=== PATIENT | female | born 1970 | race Caucasian/White ===

== ENCOUNTER 2020-03-17 16:54 | Emergency (ER) | payer OTHER, SELFPAY ==
[2020-03-17 17:31] VITALS: BP 135/67; PULSE 98; RESP 18; TEMP 37.2; O2SAT 98; BMI 44.6
--- NOTE | 2020-03-17 18:09 | ED.SKABFB ---
HPI - Skin/Abscess/Foreign Bdy General Chief complaint: Skin/Abscess/Foreign Body <JONATHAN Stanford - Last Filed: 03/17/20 20:05> Stated complaint: Abcess <JONATHAN Stanford - Last Filed: 03/17/20 20:05> Time Seen by Provider: 03/17/20 17:45 <JONATHAN Stanford - Last Filed: 03/17/20 20:05> Source: patient <JONATHAN Stanford - Last Filed: 03/17/20 20:05> Mode of arrival: ambulatory <JONATHAN Stanford Last Filed: 03/17/20 20:05> Limitations: no limitations <JONATHAN Stanford - Last Filed: 03/17/20 20:05> History of Present Illness HPI narrative: 49 y/o female here with multiple abscesses. Hx hidradinitis suppurativa. Recently was on antibiotics but stopped about 1 week ago and this is when she noticed an abscess formed on her lwoer abdomen and her left axilla. She has had abscesses in these locations several times before. No fever or chills. There is redness of the abdominal wall per patient and foul smelling drainage. <JONATHAN Stanford - Last Filed: 03/17/20 20:05> MD complaint: abscess/boil <JONATHAN Stanford - Last Filed: 03/17/20 20:05> Onset (ago): day(s) <JONATHAN Stanford - Last Filed: 03/17/20 20:05> Tetanus up to date: yes <JONATHAN Stanford - Last Filed: 03/17/20 20:05> Location: chest (lower abdominal wall ) and RLE <JONATHAN Stanford - Last Filed: 03/17/20 20:05> Severity: moderate <JONATHAN Stanford Last Filed: 03/17/20 20:05> Severity scale (1-10): 5 <JONATHAN Stanford Last Filed: 03/17/20 20:05> Quality: aching <JONATHAN Stanford Last Filed: 03/17/20 20:05> Pain Consistency: constant <JONATHAN Stanford Last Filed: 03/17/20 20:05> Relieving factors: none <JONATHAN Stanford Last Filed: 03/17/20 20:05> Exacerbating factors: palpation <JONATHAN Stanford Last Filed: 03/17/20 20:05> Context: none <JONATHAN Stanford Last Filed: 03/17/20 20:05> Associated symptoms: denies other symptoms <JONATHAN Stanford Last Filed: 03/17/20 20:05> Treatments prior to arrival: attempted to drain pus at home <JONATHAN Stanford Last Filed: 03/17/20 20:05> Related Data Home medications: Previous Rx's Medication Instructions Recorded cephalexin [Keflex] 500 mg PO QID #28 cap 03/17/20 doxycycline monohydrate 100 mg PO BID #14 cap 03/17/20 <JONATHAN Stanford Last Filed: 03/17/20 20:05> Allergies/Adverse reactions: Allergies Allergy/AdvReac Type Severity Reaction Status Date / Time adhesive tape [ADHESIVE TAPE] Allergy Intermediate BLISTERS Verified 03/17/20 17:31 tramadol [TRAMADOL] Allergy Intermediate NAUSEA & Verified 03/17/20 17:31 VOMITING, vomiting acetaminophen [Percocet] Allergy Unknown Unknown Verified 03/17/20 17:31 oxycodone [OXYCODONE] AdvReac Unknown ITCHING Verified 03/17/20 17:31 Adhesive tape Allergy Unknown Unknown Uncoded 03/17/20 17:31 adhesive tape Allergy Unknown Unknown Uncoded 03/17/20 17:31 <JONATHAN Stanford Last Filed: 03/17/20 20:05> Review of Systems Review of Systems: Constitutional: No Fever, No Chills ENT/Mouth: No sore throat, No Rhinorrhea, No Swallowing Difficulty Eyes: No Eye Pain, No Swelling, No Redness Cardiovascular: No Chest Pain or SOB, No Orthopnea Respiratory: No Cough, No Sputum, No Wheezing, positive dyspnea Gastrointestinal: No Nausea, No Vomiting, No Diarrhea, No abdominal Pain, No Hematochezia, No Melena Genitourinary: No Dysuria, No Urinary Frequency, No Hematuria Musculoskeletal: No joint pain, No Myalgias Skin: several skin lesions, redness, warmth, pain Neuro: No Weakness, No Numbness, No Dizziness, No Headache Psych: No Anxiety/Panic, No Depression Heme/Lymph: No Bruising, No Lymphadenopathy Endocrine: No Polyuria, No Polydipsia All other 10 point ROS are negative. <JONATHAN Stanford - Last Filed: 03/17/20 20:05> [facility] Past Medical History Medical History: Medical History (Updated 03/18/20 @ 00:00 by Isael Ivy) Asthma delivery delivered Cholecystectomy planned Depression Diabetes Hernia of abdominal wall High cholesterol HTN (hypertension) Tachycardia <JONATHAN Stanford - Last Filed: 03/17/20 20:05> Surgical History: Surgical History (Updated 03/17/20 @ 17:36 by Rachel Duran) H/O foot surgery <JONATHAN Stanford - Last Filed: 03/17/20 20:05> Social History Social History: Social History Alcohol intake: never Smoking Status: Former smoker Smoked in Last 30 Days: No Use of substances other than those prescribed or required for medical reasons: No Advance Directives: No Advance Directives Information Provided: Yes <JONATHAN Stanford - Last Filed: 03/17/20 20:05> Physical Exam Vital Signs and I&O and Narrative: Vital Signs and I&O: Vital Signs Temp 98.7 F 03/17/20 18:38 Pulse 95 03/17/20 18:38 Resp 16 03/17/20 18:38 BP 153/73 H 03/17/20 18:38 Pulse Ox 99 03/17/20 18:38 Intake & Output 03/17/20 03/17/20 03/18/20 06:59 18:59 06:59 Weight 118.026 kg Body Mass Index 44.6 Appearance: Alert. Oriented X3. No acute distress. Eyes: Pupils equal, round and reactive to light. ENT: Pharynx normal. Neck: Normal inspection. Neck supple. CVS: Normal heart rate and rhythm. Pulses normal. Respiratory: No respiratory distress. Breath sounds normal. Abdomen: Soft. lower abdominal wall with 3cm palpable mass with fluctuance consistent with abscess, mild surrouding cellultiis and tenderness. Skin: Skin warm and dry. Normal skin color. Normal skin turgor. No rashes. Extremities: right axillary area with tender indurated area, draining purulent, foul-smelling fluid, mild cellulitic changes, several scars from prior abscesses Neuro: Oriented X 3. No motor deficit. No sensory deficit. <JONATHAN Stanford - Last Filed: 03/17/20 20:05> Vital Signs and I&O: Vital Signs Temp 98.7 F 03/17/20 18:38 Pulse 95 03/17/20 18:38 Resp 16 03/17/20 18:38 BP 153/73 H 03/17/20 18:38 Pulse Ox 99 03/17/20 18:38 Intake & Output 03/17/20 03/17/20 03/18/20 06:59 18:59 06:59 Weight 118.026 kg Body Mass Index 44.6 <Winler Pina DO - Last Filed: 03/18/20 01:18> Course Course Hospital Course: not septic, 2 mild abscesses which she has a history of. will I&D and start abx. she is due to follow up with her PCP and surgeon <JONATHAN Stanford - Last Filed: 03/17/20 20:05> Procedures Abscess I/D Site: abdomen and upper extremity <JONATHAN Stanford - Last Filed: 03/17/20 20:05> Side (if applicable): right <JONATHAN Stanford - Last Filed: 03/17/20 20:05> Local Anesthetic: lidocaine 2% <JONATHAN Stanford - Last Filed: 03/17/20 20:05> Amount of anesthesia used (mL): 5 <JONATHAN Stanford - Last Filed: 03/17/20 20:05> Technique: incised with blade <JONATHAN Stanford - Last Filed: 03/17/20 20:05> Sent for culture/gram staining?: No <JONATHAN Stanford - Last Filed: 03/17/20 20:05> Irrigation: Yes <JONATHAN Stanford - Last Filed: 03/17/20 20:05> Packing used?: none <JONATHAN Stanford - Last Filed: 03/17/20 20:05> Complications: pain <JONATHAN Stanford - Last Filed: 03/17/20 20:05> MDM - Skin/Abscess/Foreign Bdy Differential Diagnosis Differential diagnosis: Likely abscess of skin or subcutaneous tissue and cellulitis <JONATHAN Stanford Last Filed: 03/17/20 20:05> Medical Records Attestation: I reviewed the patient's medical records. <JONATHAN Stanford Last Filed: 03/17/20 20:05> Discharge Plan Discharge Clinical Impression: Cellulitis, Abscess of skin or subcutaneous tissue, Axillary hidradenitis suppurativa <JONATHAN Stanford - Last Filed: 03/17/20 20:05> Patient Disposition: Home, Self-Care <JONATHAN Stanford Last Filed: 03/17/20 20:05> Instructions: Cellulitis (ED), Hidradenitis Suppurativa (ED) <JONATHAN Stanford Last Filed: 03/17/20 20:05> Additional Instructions: Use warm compresses to the area to help facilitate additional drainage. Monitor for worsening signs of infection including redness, warmth, pain, and swelling. Follow up with your PCP and your Surgeon Return to the ER or call your doctor right way if you develop fever or signs of worsening infection <JONATHAN Stanford Last Filed: 03/17/20 20:05> Prescriptions: New doxycycline monohydrate 100 mg capsule 100 mg PO BID Qty: 14 RF: 0 cephalexin [Keflex] 500 mg capsule 500 mg PO QID Qty: 28 RF: 0 <JONATHAN Stanford Last Filed: 03/17/20 20:05> Interventions: ED Discharge Assessment Last Done: 03/17/20 19:16 <JONATHAN Stanford Last Filed: 03/17/20 20:05> Discharge Date/Time: 03/17/20 19:17 <JONATHAN Stanford - Last Filed: 03/17/20 20:05>
[2020-03-17] MEDS: cephALEXin 500 MG CAPSULE PO (18:34)
[2020-03-17] MEDS: Lidocaine HCl 2 % MPF 5 ML VIAL INFILTRATI (18:34)
[2020-03-17 18:38] VITALS: BP 153/73; PULSE 95; RESP 16; TEMP 37.1; O2SAT 99
== END 2020-03-17 19:17 | disposition home or self-care (01) ==
DX: L02.412 Cutaneous abscess of left axilla (principal); L02.211 Cutaneous abscess of abdominal wall; L73.2 Hidradenitis suppurativa; E11.9 Type 2 diabetes mellitus without complications; F32.9 Major depressive disorder, single episode, unspecified; E78.00 Pure hypercholesterolemia, unspecified; L03.311 Cellulitis of abdominal wall; J45.909 Unspecified asthma, uncomplicated; Z87.891 Personal history of nicotine dependence; Z79.899 Other long term (current) drug therapy
CPT/HCPCS: 10061; 99284

== ENCOUNTER 2020-03-23 03:49 | Emergency (ER) | payer OTHER, SELFPAY ==
[2020-03-23 03:57] VITALS: BP 116/78; PULSE 93; RESP 20; TEMP 36.7; O2SAT 98; BMI 40.3
--- NOTE | 2020-03-23 04:48 | ED.URI ---
HPI - URI/Sore Throat General Chief Complaint: Upper Respiratory Symptoms Stated Complaint: asthma Time Seen by Provider: 03/23/20 04:48 History of Present Illness HPI Narrative: This is a 49-year-old female who reports increased difficulty with breathing secondary to her nasal congestion and allergies. She is concerned she may be developing a sinus infection, although denies any fevers, chills, nausea, vomiting, GI symptoms, or symptoms. She states she is currently on doxycycline and cephalexin for incision and drainages that were completed. Related Data Previous Rx's Medication Instructions Recorded cephalexin [Keflex] 500 mg PO QID #28 cap 03/17/20 doxycycline monohydrate 100 mg PO BID #14 cap 03/17/20 albuterol sulfate [Ventolin HFA] 2 puff INHALATION Q4-6H PRN #1 ea 03/23/20 Allergies Allergy/AdvReac Type Severity Reaction Status Date / Time adhesive tape [ADHESIVE TAPE] Allergy Intermediate BLISTERS Verified 03/17/20 17:31 tramadol [TRAMADOL] Allergy Intermediate NAUSEA & Verified 03/17/20 17:31 VOMITING, vomiting acetaminophen [Percocet] Allergy Unknown Unknown Verified 03/17/20 17:31 oxycodone [OXYCODONE] AdvReac Unknown ITCHING Verified 03/17/20 17:31 Adhesive tape Allergy Unknown Unknown Uncoded 03/17/20 17:31 adhesive tape Allergy Unknown Unknown Uncoded 03/17/20 17:31 Review of Systems Review of Systems: Pertinent positives and negatives as stated in the HPI. GEN: no fevers, chills, fatigue HEENT: no nasal congestion, sore throat, ear pain NEURO: no headache, dizziness, focal weakness PULM: +cough, Mild shortness of breath CV: no chest pain, palpitations, LE edema ABD: no abdominal pain, nausea, vomiting, diarrhea : no dysuria, urgency, frequency SKIN: no rash ROS otherwise negative x 10 PMFSH Past Medical History Source: nursing notes reviewed Medical History Asthma delivery delivered Cholecystectomy planned Depression Diabetes Hernia of abdominal wall High cholesterol HTN (hypertension) Tachycardia Surgical History H/O foot surgery Social History Social History Alcohol intake: never Smoking Status: Former smoker Advance Directives: No Advance Directives Information Provided: No Physical Exam Vital Signs and I&O and Narrative: Vital Signs and I&O: Vital Signs Temp 98.0 F 03/23/20 03:57 Pulse 93 03/23/20 03:57 Resp 20 03/23/20 03:57 BP 116/78 03/23/20 03:57 Pulse Ox 98 03/23/20 03:57 Intake & Output 03/22/20 03/22/20 03/23/20 06:59 18:59 06:59 Weight 106.594 kg Body Mass Index 40.3 VITAL SIGNS: Reviewed. GENERAL: Well developed, well nourished, in no acute distress. HEAD: Normocephalic/atraumatic, EYES: PERRLA, EOMI intact without pain, no nystagmus/pallor/icterus noted EARS: Ext canals without abnormality, TMs non-bulging and non-erythematous NOSE: Nares patent bilateral OROPHARYNX: no oral lesions noted, posterior pharynx clear and non-erythematous without noted tonsillar enlargement/erythema/exudates NECK: Supple, no adenopathy LUNGS: Normal breath sounds. No adventitious sounds or accessory muscle use. SpO2< 98%> CARDIOVASCULAR: Regular rate and rhythm without noted murmurs, no JVD or lower extremity edema. ABDOMEN: Soft, non-tender, non-distended with bowel sounds. No rigidity. No guarding. No palpable masses or hernias noted MUSCULOSKELETAL: No tenderness, deformities, or effusions noted on gross inspection. EXTREMITIES: No cyanosis, clubbing or edema. SKIN: Inspection of the skin reveals no rashes, ulcerations, jaundice, pallor, or petechiae. NEUROLOGIC: Alert and oriented x 4. Strength and sensation to light touch were grossly intact x 4. Course Course Course Narrative: this is a 49-year-old female with history and clinical presentation consistent with likely nasal congestion secondary to allergies with concomitant postnasal drip with upper airway irritation. There is no evidence of fever, and clinical exam of the lungs is benign with good oxygenation. This was further demonstrated by a chest x-ray which was negative for any acute findings and a DuoNeb was provided to the patient and she endorses improvement on re-evaluation. All results and findings were discussed with the patient at bedside and she was recommended to take Flonase daily for the nasal congestion. Discharge Plan Discharge Clinical Impression: Congestion of nasal sinus Patient Disposition: Home, Self-Care Instructions: Allergic Rhinitis (ED) Additional Instructions: 1. Resume all home medications as prescribed. 2. Flonase, [id number] available in any drug store, use as directed on the outside packaging for additional symptom relief of nasal congestion. The patient and/or family acknowledge understanding of results (as applicable), diagnosis, treatment plan, need for follow up, and symptoms that should prompt a return to the emergency room. Prescriptions: New albuterol sulfate [Ventolin HFA] 90 mcg/actuation HFA aerosol inhaler 2 puff inhalation Q4-6H PRN (Reason: shortness of breath or wheezing) Qty: 1 RF: 0 No Action doxycycline monohydrate 100 mg capsule 100 mg PO BID Qty: 14 RF: 0 cephalexin [Keflex] 500 mg capsule 500 mg PO QID Qty: 28 RF: 0 Referrals: Leti Ballesteros MD [Primary Care Provider] - 2 days ( Nasal congestion with upper respiratory irritation)
--- NOTE | 2020-03-23 04:52 | XR_ITS ---
EXAMINATION: XR CHEST CLINICAL INFORMATION: Shortness of breath COMPARISON: 09/06/2019 TECHNIQUE: 2 views of the chest were obtained. FINDINGS: The lungs are well expanded. There is no focal consolidation, edema, or effusion. No pneumothorax. The cardiomediastinal silhouette is within normal limits. No acute osseous abnormality. IMPRESSION: No acute pulmonary finding.
[2020-03-23] MEDS: Albuterol/Iprat 2.5/0.5MG 3 ML AMPUL.NEB INHALE (05:33)
[2020-03-23 06:27] VITALS: BP 189/76; PULSE 89; RESP 20; TEMP 37.2; O2SAT 99
== END 2020-03-23 06:49 | disposition home or self-care (01) ==
PROVIDERS: Emergency Provider Student in an Organized Health Care Education/Training Program; PCP Internal Medicine
DX: R09.81 Nasal congestion (principal); Z20.828 Contact with and (suspected) exposure to other viral communicable diseases; Z87.891 Personal history of nicotine dependence; Z79.899 Other long term (current) drug therapy
CPT/HCPCS: 71046; 99284

== ENCOUNTER 2020-06-22 14:08 | Outpatient (REF) | payer OTHER, SELFPAY | END 2020-06-22 14:09 | disposition home or self-care (01) | LOC: HO.LAB 14:08 | PROVIDERS: Visit Provider Nurse Practitioner Family | DX: R09.81 Nasal congestion (principal); Z20.822 Contact with and (suspected) exposure to COVID-19 | CPT/HCPCS: 36415; U0003 ==

== ENCOUNTER 2020-09-11 | Outpatient (REF) | payer OTHER, SELFPAY | END 2020-09-11 00:01 | disposition home or self-care (01) | LOC: HO.LNP | PROVIDERS: Visit Provider Nurse Practitioner Family | DX: L73.2 Hidradenitis suppurativa (principal) | CPT/HCPCS: 87071; 87077; 87186; 87205 ==

== ENCOUNTER 2020-09-11 17:06 | Outpatient (REF) | payer OTHER, SELFPAY | END 2020-09-11 17:07 | disposition home or self-care (01) | LOC: HO.LAB 17:06 | PROVIDERS: Visit Provider Nurse Practitioner Family | DX: Z13.89 Encounter for screening for other disorder (principal) ==

== ENCOUNTER 2020-10-01 10:06 | Emergency (ER) | payer OTHER, SELFPAY ==
[2020-10-01] VITALS (7 sets, daily range): BP systolic 119–128; BP diastolic 60–81; PULSE 92–100; RESP 16–18; TEMP 36.8; O2SAT 94–99; BMI 39.4; BMI 44.6
--- NOTE | ~2020-10-01 | CT_ITS ---
EXAMINATION: CT ANGIOGRAM OF THE CHEST WITH AND WITHOUT CONTRAST (CT PULMONARY ANGIOGRAM FOR PE) CLINICAL INFORMATION: Reason for Exam SOB COMPARISON: CT chest 08/25/2018 TECHNIQUE: Prior to contrast administration, noncontrast localization images were obtained. Subsequently, multidetector volumetric imaging was performed from the thoracic inlet to below the diaphragms following the administration of 71 mL Omnipaque 350 intravenous contrast. During the procedure, the IV blew and it was thought that only 10 to 15 mL of contrast went intravenously and the remainder approximately 55 to 60 mL extravasated into the patient's right arm. Ice was applied and incident report was filed. The patient's provider was immediately advised of these events. No contrast reaction reported Sagittal, coronal, and MIP oblique sagittal reformatted images were obtained on the CT workstation, uploaded to PACS, and reviewed. This CT examination was performed using dose optimization techniques as appropriate, variously including the following: *Automated exposure control *Adjustment of mA and/or kV according to patient size (this includes techniques or standardized protocols for targeted exams where dose is matched to indication/reason for exam; i.e. extremities or head) *Use of iterative reconstruction technique Total exam dose-length product 407 mGy-cm FINDINGS: QUALITY OF STUDY/CONTRAST BOLUS: Poor PULMONARY ARTERIES: No large central pulmonary emboli. This study is inadequate for diagnosis of any other smaller emboli. THORACIC AORTA: No aneurysm or dissection. LUNG: No focal consolidation, worrisome nodules or masses. Some tiny scattered micronodules are seen (see carreon images) the largest measuring 3 mm (for example see RUL,7:177). Some tree-in-bud inflammatory changes are present in the left upper lobe laterally and in the right lower PLEURA: No pleural effusion or pneumothorax. MEDIASTINUM: Normal heart size. No pericardial effusion. No hilar or mediastinal lymphadenopathy. No evidence of septal bowing or right heart strain. CHEST WALL/AXILLA: No axillary or internal mammary lymphadenopathy. OSSEOUS STRUCTURES: No acute or suspicious osseous abnormality. UPPER ABDOMEN: Small hiatal hernia is present No reflux of contrast into the hepatic veins to suggest elevated right heart pressures. CT/CT angio chest PE protocol IMPRESSION: 1. Study is nondiagnostic for pulmonary emboli 2. A few scattered micronodules and some tree-in-bud inflammatory changes are present. 3. If exclusion of PE is necessary, a stable IV or PICC line must be placed and this study should be repeated. 4. Extravasation injury right arm as described above VTE: indeterminate This critical result was discussed with JONATHAN Stubbs at 9:30 PM on the evening of the exam and it was ascertained that the content and urgency of the report was understood at the time of direct communication.
--- NOTE | ~2020-10-01 | XR_ITS ---
EXAMINATION: XR CHEST CLINICAL INFORMATION: Cough. COMPARISON: Chest 03/23/2020 TECHNIQUE: Frontal view of the chest was obtained. FINDINGS: No significant abnormality is noted involving the heart, lungs, mediastinum, bony thorax or soft tissues. XR/XR chest 1V IMPRESSION: Unremarkable chest exam.
--- NOTE | 2020-10-01 10:46 | ECG_ITS ---
Test Reason : DYSPNEA Blood Pressure : / mmHG Vent. Rate : 092 BPM Atrial Rate : 092 BPM P-R Int : 166 ms QRS Dur : 092 ms QT Int : 360 ms P-R-T Axes : 036 014 041 degrees QTc Int : 445 ms Normal sinus rhythm Cannot rule out Anterior infarct (cited on or before 01-OCT-2020) Abnormal ECG When compared with ECG of 11-JUL-2019 16:02, No significant change was found Referred By: Kemal Acosta Electronically Signed By:Jonathan Torres
--- NOTE | 2020-10-01 10:51 | ED.GENADULT ---
HPI - General Adult General Chief complaint: Dyspnea Stated complaint: SOB Time Seen by Provider: 10/01/20 10:37 History of Present Illness HPI narrative: Patient presents to the ED for dry cough and shortness of breath. Patient states also feeling warm. Patient states she staying at a motel where most of the residence smoke heavy amounts of cigarettes and marijuana and that caused her to cough and exacerbate her asthma. Patient denies any fever chills. Patient denies any calf pain or increased swelling of lower extremities. Patient states once again cough is dry. Patient denies any chest pain on inspiration. Patient is unknown of any exposure to COVID, but states he doubted because she usually states in her own room. Related Data Home Medications Medication Instructions Recorded Confirmed aripiprazole 10 mg tablet 10 mg PO QAM 06/22/20 aspirin 325 mg tablet 325 mg PO DAILY 06/22/20 blood sugar diagnostic #10 ea 06/22/20 bupropion HCl 150 mg 24 hr tablet, 150 mg PO QAM 06/22/20 extended release cetirizine 10 mg tablet 10 mg PO DAILY 06/22/20 diltiazem HCl 240 mg 240 mg PO DAILY 06/22/20 capsule,extended release 24 hr duloxetine 30 mg capsule,delayed 30 mg PO BID 06/22/20 release fluticasone propionate 115 2 puff INHALATION BID 06/22/20 mcg-salmeterol 21 mcg/actuation HFA inhaler fluticasone propionate 230 2 puff INHALATION BID 06/22/20 mcg-salmeterol 21 mcg/actuation HFA inhaler fluticasone propionate 50 0 mcg INTRANASAL 06/22/20 mcg/actuation nasal spray,suspension gabapentin 300 mg capsule 300 mg PO BID 06/22/20 glipizide 5 mg tablet 5 mg PO BID 06/22/20 ibuprofen 600 mg tablet 600 mg PO Q8H PRN 06/22/20 insulin aspart U-100 100 unit/mL SUBCUT 06/22/20 subcutaneous solution insulin glargine 100 unit/mL (3 62 unit SUBCUT BID 06/22/20 mL) subcutaneous pen liraglutide 0.6 mg/0.1 mL (18 mg/3 1.8 mg SUBCUT DAILY 06/22/20 mL) subcutaneous pen injector loratadine 10 mg tablet 10 mg PO DAILY 06/22/20 metformin 1,000 mg tablet 1,000 mg PO BID 06/22/20 omeprazole 20 mg capsule,delayed 20 mg PO DAILY 06/22/20 release pravastatin 20 mg tablet 20 mg PO DAILY 06/22/20 Previous Rx's Medication Instructions Recorded cephalexin [Keflex] 500 mg PO QID #28 cap 03/17/20 doxycycline monohydrate 100 mg PO BID #14 cap 03/17/20 albuterol sulfate [Ventolin HFA] 2 puff INHALATION Q4-6H PRN #1 ea 03/23/20 albuterol sulfate 90 mcg/actuation 1 inh INHALATION Q6H PRN #8.5 g 06/22/20 aerosol inhaler doxycycline hyclate 100 mg tablet 100 mg PO BID 10 Days #20 tab 09/11/20 azithromycin See Rx Instructions .ROUTE 10/01/20 .COMPLEX #6 tab benzonatate [Tessalon Perles] 100 mg PO TID PRN #15 cap 10/01/20 Allergies Allergy/AdvReac Type Severity Reaction Status Date / Time adhesive tape [ADHESIVE TAPE] Allergy Intermediate BLISTERS Verified 03/17/20 17:31 tramadol [TRAMADOL] Allergy Intermediate NAUSEA & Verified 03/17/20 17:31 VOMITING, vomiting acetaminophen [Percocet] Allergy Unknown Unknown Verified 03/17/20 17:31 oxycodone [OXYCODONE] AdvReac Unknown ITCHING Verified 03/17/20 17:31 Adhesive tape Allergy Unknown Unknown Uncoded 03/17/20 17:31 adhesive tape Allergy Unknown Unknown Uncoded 03/17/20 17:31 Review of Systems Review of Systems: Yes all other systems are reviewed and are negative Constitutional: Constitutional: Reports as per HPI and Reports no additional constitutional complaints Eyes: Eyes: Reports as per HPI and Reports no additional eye complaints ENT: Reports system reviewed and no additional complaints, except as documented and Reports as per HPI Cardiovascular: Cardiovascular: Reports as per HPI, Reports no additional cardiovascular complaints and Reports dyspnea Respiratory: Respiratory: Reports as per HPI, Reports no additional respiratory complaints, Reports cough and Reports dyspnea Gastrointestinal: Gastrointestinal: Reports as per HPI and Reports no additional gastrointestinal complaints Genitourinary: Genitourinary: Reports no additional female genitourinary complaints and Reports as per HPI Musculoskeletal: Musculoskeletal: Reports no additional musculoskeletal complaints and Reports as per HPI Neurologic: Reports system reviewed and no additional complaints, except as documented and Reports as per HPI Psychiatric: Psychiatric: Reports no additional psychiatric complaints and Reports as per HPI [facility] Past Medical History Medical History Asthma delivery delivered Cholecystectomy planned Depression Diabetes Hernia of abdominal wall High cholesterol HTN (hypertension) Tachycardia Surgical History H/O foot surgery Social History Social History Alcohol intake: never Smoking Status: Never smoker Use of substances other than those prescribed or required for medical reasons: No Advance Directives: No Advance Directives Information Provided: No Physical Exam Vital Signs: Vital Signs: Last Vital Signs Temp 98.3 F 10/01/20 10:32 Pulse 92 10/01/20 16:12 Resp 16 10/01/20 16:12 BP 127/69 10/01/20 16:12 Pulse Ox 95 10/01/20 16:12 Body Mass Index 44.6 Const: General: cooperative, healthy appearing, comfortable, no acute distress, well developed, alert, awake and Physically active; No lethargic Orientation/consciousness: patient oriented x3 and No lethargic HENMT: Head: Yes normal to inspection, Yes No palpable skull fracture present, Yes normocephalic, Yes atraumatic, No abrasion, No Shelley's sign, No contusion, No cranial bruits, No hematoma, No laceration, No occipital foramen tenderness, No palpable skull fracture, No raccoon eyes, No scalp lesion, No scalp tenderness, No Temporal artery tenderness present and No periorbital ecchymosis Eyes: General: appearance normal, both eyes and all related structures Neck: Neck: Yes normal visual inspection, Yes full ROM, Yes no lymphadenopathy, Yes no meningeal signs, Yes trachea midline, Yes supple and No tender Chest: Chest palpation & inspection: normal inspection of the chest and normal palpation of entire chest wall Resp: Effort & Inspection: normal respiratory effort and able to speak in complete sentences Auscultation: clear to auscultation bilaterally Cardio: Jugular venous distension: no JVD Heart sounds: S1 normal heart sound present and S2 normal heart sound present GI: Inspection: Yes normal to inspection and No abdominal wall ecchymosis Palpation (GI): Soft to palpation, not firm, nontender, no guarding and not rigid : General: No CVA tenderness and Yes no CVA tenderness Back/Spine/Pelvis: Back: no CVA tenderness, No CVA tenderness and No back tenderness Skin: General skin exam: no rashes or lesions noted and elasticity normal Neuro: General: patient oriented x3, no meningeal signs and CN's II-XI intact bilaterally Cranial nerves: Yes CN's II-XII intact bilaterally Extrem: Other: Lower extremities negative for any swelling, pitting edema, or calf tenderness General: Yes normal to inspection and Yes full ROM Psych: Appearance: grossly normal, well kempt and not disheveled Course Course Course Narrative: Patient's sound like she has the URI, do TH patient will have a medical workup. Patient had EKG, troponin, COVID swab, and basic labs. Reevaluation(s) Reevaluation #1: Patient's EKG does not show any new changes. First troponin negative. Patient's COVID swab is negative BNP negative ER negative for pneumonia. D-dimer will be sent to make sure the risk of PE. Reevaluation #2: D-dimer slightly elevated. Will order repeat troponin and make patient walk around. Also will do O2 saturation ambulation trial. Patient does admits to feeling better. The saturation 98% on ambulation. Patient is sent for chest CT a due to elevated D-dimer. Reevaluation #3: Waiting for chest CT results. Most likely patient has bronchitis and chest CT is normal patient could be discharged. Case signed out to Gustavo be. Medical Decision Making [facility] Narrative Medical decision making narrative: Bronchitis asthma exacerbation Lab Data Result diagrams: 10/01/20 11:19 10/01/20 12:14 Labs: Lab Results 10/01/20 10/01/20 10/01/20 Range/Units 11:19 11:19 12:14 WBC 7.5 (4.8-10.8) X10*3/uL RBC 4.71 (4.20-5.50) X10*6/uL Hgb 14.1 (12.0-16.0) g/dl Hct 41.4 (37-47) % MCV 87.9 (80-98) fL MCH 29.9 (27.0-33.0) pg MCHC 34.1 (31.0-35.0) g/dl RDW 12.8 (11.0-16.0) % Plt Count 169 (160-400) X10*3/uL MPV 9.2 L (9.4-12.3) fL Immature Gran % (Auto) 0.5 H (0.0-0.4) % Neut % (Auto) 70.9 (45-73) % Lymph % (Auto) 21.7 (20-40) % [place] % (Auto) 5.3 (2-11) % Eos % (Auto) 1.5 (0-4) % Baso % (Auto) 0.1 (0-2) % Lymph # (Auto) 1.6 (1.2-4.9) X10*3/uL [place] # (Auto) 0.4 (0.1-1.2) X10*3/uL Eos # (Auto) 0.1 (0.0-0.4) X10*3/uL Baso # (Auto) 0.0 (0.0-0.2) X10*3/uL Abs Immat Gran (auto) 0.04 H (0.00-0.03) X10*3/uL Absolute Neuts (auto) 5.3 (2.0-8.3) X10*3/uL Absolute Nucleated RBC 0.000 (0.0-0.012) X10*3/uL Nucleated RBC % (auto) 0.0 (0.0-0.2) /100WBC PT (10.8-13.0) SEC INR (0.9-1.1) APTT (24.1-38.0) SEC D-Dimer NG/ML Sodium 137 (135-145) mmol/L Potassium 4.2 (3.3-5.1) mmol/L Chloride 96 (96-108) mmol/L Carbon Dioxide 29 (22-29) mmol/L Anion Gap 16 (12-20) BUN 24 H (9-16) mg/dL Creatinine 0.85 (0.5-1.4) mg/dL Estim Creat Clear Calc 97.8 Estimated GFR > 60 Random Glucose 305 H (60-115) mg/dL Calcium 9.0 (8.4-10.2) mg/dL Ferritin 65 (10-250) ng/mL Total Bilirubin 0.5 (0.0-1.0) mg/dL Direct Bilirubin 0.2 (0.0-0.5) mg/dL AST 24 (5-31) U/L ALT 30 (0-31) U/L Alkaline Phosphatase 149 H (39-117) U/L Lactate Dehydrogenase 163 (122-220) U/L Troponin I High Sens (<3.5-17.0) ng/L B-Natriuretic Peptide (<100) pg/mL Total Protein 6.4 L (6.5-8.0) g/dL Albumin 3.8 (3.5-5.0) g/dL Lipase 44 (8-78) U/L Procalcitonin ng/mL Coronavirus (PCR) NEGATIVE (Negative) Influenza Type A (PCR) NEGATIVE (Negative) Influenza Type B (PCR) NEGATIVE (Negative) RSV RNA Qual (PCR) NEGATIVE (Negative) 10/01/20 10/01/20 10/01/20 Range/Units 12:14 12:15 12:15 WBC (4.8-10.8) X10*3/uL RBC (4.20-5.50) X10*6/uL Hgb (12.0-16.0) g/dl Hct (37-47) % MCV (80-98) fL MCH (27.0-33.0) pg MCHC (31.0-35.0) g/dl RDW (11.0-16.0) % Plt Count (160-400) X10*3/uL MPV (9.4-12.3) fL Immature Gran % (Auto) (0.0-0.4) % Neut % (Auto) (45-73) % Lymph % (Auto) (20-40) % [place] % (Auto) (2-11) % Eos % (Auto) (0-4) % Baso % (Auto) (0-2) % Lymph # (Auto) (1.2-4.9) X10*3/uL [place] # (Auto) (0.1-1.2) X10*3/uL Eos # (Auto) (0.0-0.4) X10*3/uL Baso # (Auto) (0.0-0.2) X10*3/uL Abs Immat Gran (auto) (0.00-0.03) X10*3/uL Absolute Neuts (auto) (2.0-8.3) X10*3/uL Absolute Nucleated RBC (0.0-0.012) X10*3/uL Nucleated RBC % (auto) (0.0-0.2) /100WBC PT 10.5 L (10.8-13.0) SEC INR 0.9 (0.9-1.1) APTT 31.9 (24.1-38.0) SEC D-Dimer 231 NG/ML Sodium (135-145) mmol/L Potassium (3.3-5.1) mmol/L Chloride (96-108) mmol/L Carbon Dioxide (22-29) mmol/L Anion Gap (12-20) BUN (9-16) mg/dL Creatinine (0.5-1.4) mg/dL Estim Creat Clear Calc Estimated GFR Random Glucose (60-115) mg/dL Calcium (8.4-10.2) mg/dL Ferritin (10-250) ng/mL Total Bilirubin (0.0-1.0) mg/dL Direct Bilirubin (0.0-0.5) mg/dL AST (5-31) U/L ALT (0-31) U/L Alkaline Phosphatase (39-117) U/L Lactate Dehydrogenase (122-220) U/L Troponin I High Sens < 3.5 (<3.5-17.0) ng/L B-Natriuretic Peptide 19 (<100) pg/mL Total Protein (6.5-8.0) g/dL Albumin (3.5-5.0) g/dL Lipase (8-78) U/L Procalcitonin 0.10 ng/mL Coronavirus (PCR) (Negative) Influenza Type A (PCR) (Negative) Influenza Type B (PCR) (Negative) RSV RNA Qual (PCR) (Negative) 10/01/20 Range/Units 15:32 WBC (4.8-10.8) X10*3/uL RBC (4.20-5.50) X10*6/uL Hgb (12.0-16.0) g/dl Hct (37-47) % MCV (80-98) fL MCH (27.0-33.0) pg MCHC (31.0-35.0) g/dl RDW (11.0-16.0) % Plt Count (160-400) X10*3/uL MPV (9.4-12.3) fL Immature Gran % (Auto) (0.0-0.4) % Neut % (Auto) (45-73) % Lymph % (Auto) (20-40) % [place] % (Auto) (2-11) % Eos % (Auto) (0-4) % Baso % (Auto) (0-2) % Lymph # (Auto) (1.2-4.9) X10*3/uL [place] # (Auto) (0.1-1.2) X10*3/uL Eos # (Auto) (0.0-0.4) X10*3/uL Baso # (Auto) (0.0-0.2) X10*3/uL Abs Immat Gran (auto) (0.00-0.03) X10*3/uL Absolute Neuts (auto) (2.0-8.3) X10*3/uL Absolute Nucleated RBC (0.0-0.012) X10*3/uL Nucleated RBC % (auto) (0.0-0.2) /100WBC PT (10.8-13.0) SEC INR (0.9-1.1) APTT (24.1-38.0) SEC D-Dimer NG/ML Sodium (135-145) mmol/L Potassium (3.3-5.1) mmol/L Chloride (96-108) mmol/L Carbon Dioxide (22-29) mmol/L Anion Gap (12-20) BUN (9-16) mg/dL Creatinine (0.5-1.4) mg/dL Estim Creat Clear Calc Estimated GFR Random Glucose (60-115) mg/dL Calcium (8.4-10.2) mg/dL Ferritin (10-250) ng/mL Total Bilirubin (0.0-1.0) mg/dL Direct Bilirubin (0.0-0.5) mg/dL AST (5-31) U/L ALT (0-31) U/L Alkaline Phosphatase (39-117) U/L Lactate Dehydrogenase (122-220) U/L Troponin I High Sens 5.7 D (<3.5-17.0) ng/L B-Natriuretic Peptide (<100) pg/mL Total Protein (6.5-8.0) g/dL Albumin (3.5-5.0) g/dL Lipase (8-78) U/L Procalcitonin ng/mL Coronavirus (PCR) (Negative) Influenza Type A (PCR) (Negative) Influenza Type B (PCR) (Negative) RSV RNA Qual (PCR) (Negative) ECG Data Interpretation: Normal sinus rhythm. Ventricular rate 92. Peer interval 166. QRS 92. QTC 445. Negative STEMI Discharge Plan Discharge Clinical Impression: Asthma with exacerbation Patient Disposition: Home, Self-Care Instructions: Asthma (ED) Additional Instructions: Return to the ED for any chest pain, shortness of breath, swelling of lower extremities, coughing of blood, calf pain, weakness, fever, chills, or any other concerning symptoms. Continue using albuterol inhaler given to you by nurse and take 2 puffs every 4-6 hours as needed. Prescriptions: New azithromycin 500 mg tablet See Rx Instructions .ROUTE .COMPLEX Qty: 6 RF: 0 benzonatate [Tessalon Perles] 100 mg capsule 100 mg PO TID PRN (Reason: cough) Qty: 15 RF: 0 No Action albuterol sulfate [Ventolin HFA] 90 mcg/actuation HFA aerosol inhaler 2 puff inhalation Q4-6H PRN (Reason: shortness of breath or wheezing) Qty: 1 RF: 0 doxycycline monohydrate 100 mg capsule 100 mg PO BID Qty: 14 RF: 0 cephalexin [Keflex] 500 mg capsule 500 mg PO QID Qty: 28 RF: 0 Advair HFA 115-21 mcg/actuation HFA aerosol inhaler 2 puff inhalation BID RF: 0 insulin aspart U-100 100 unit/mL solution subcut RF: 0 omeprazole 20 mg capsule,delayed release(DR/EC) 20 mg PO DAILY RF: 0 metformin 1,000 mg tablet 1,000 mg PO BID RF: 0 gabapentin 300 mg capsule 300 mg PO BID RF: 0 glipizide 5 mg tablet 5 mg PO BID RF: 0 fluticasone propionate 50 mcg/actuation spray,suspension 0 mcg intranasal RF: 0 diltiazem HCl 240 mg capsule,extended release 24hr 240 mg PO DAILY RF: 0 aspirin 325 mg tablet 325 mg PO DAILY RF: 0 ibuprofen 600 mg tablet 600 mg PO Q8H PRN (Reason: pain) RF: 0 loratadine 10 mg tablet 10 mg PO DAILY RF: 0 cetirizine 10 mg tablet 10 mg PO DAILY RF: 0 Lantus Solostar U-100 Insulin 100 unit/mL (3 mL) insulin pen 62 unit subcut BID RF: 0 Advair HFA 230-21 mcg/actuation HFA aerosol inhaler 2 puff inhalation BID RF: 0 pravastatin 20 mg tablet 20 mg PO DAILY RF: 0 Victoza 3-Mani 0.6 mg/0.1 mL (18 mg/3 mL) pen injector 1.8 mg subcut DAILY RF: 0 bupropion HCl 150 mg tablet extended release 24 hr 150 mg PO QAM RF: 0 aripiprazole 10 mg tablet 10 mg PO QAM RF: 0 duloxetine 30 mg capsule,delayed release(DR/EC) 30 mg PO BID RF: 0 (DME) FreeStyle Lite Strips Strip See Rx Instructions ea Not Applicable TID Qty: 10 RF: 0 albuterol sulfate 90 mcg/actuation HFA aerosol inhaler 1 inh inhalation Q6H PRN (Reason: shortness of breath or wheezing) Qty: 8.5 RF: 2 doxycycline hyclate 100 mg tablet 100 mg PO BID 10 Days Qty: 20 RF: 0 Print Language: Maltese
[2020-10-01 11:32] LABS: MANUAL DIFF FLAG NO
[2020-10-01] MEDS: Albuterol Sulfate 90 MCG 8 GM INHALER 4 PUFF INHALE (11:32)
[2020-10-01 11:35] LABS: Basophils Percent Auto 0.1 % (0-2); Eosinophils Absolute Auto 0.1 X10*3/uL (0.0-0.4); Eosinophils Percent Auto 1.5 % (0-4); Hematocrit 41.4 % (37-47); Hemoglobin 14.1 g/dl (12.0-16.0); Imm Gran Abs Auto 0.04 X10*3/uL (0.00-0.03); Imm Gran Pct Auto 0.5 % (0.0-0.4); Lymphocytes Absolute Auto 1.6 X10*3/uL (1.2-4.9); Lymphocytes Percent Auto 21.7 % (20-40); Mean Corpuscular HGB Conc 34.1 g/dl (31.0-35.0); Mean Corpuscular Hemoglobin 29.9 pg (27.0-33.0); Mean Corpuscular Volume 87.9 fL (80-98); Mean Platelet Volume 9.2 fL (9.4-12.3); Monocytes Absolute Auto 0.4 X10*3/uL (0.1-1.2); Monocytes Percent Auto 5.3 % (2-11); Neutrophils Absolute Auto 5.3 X10*3/uL (2.0-8.3); Neutrophils Percent Auto 70.9 % (45-73); Platelet Count 169 X10*3/uL (160-400); Red Blood Count 4.71 X10*6/uL (4.20-5.50); Red Cell Distribution Width 12.8 % (11.0-16.0); White Blood Count 7.5 X10*3/uL (4.8-10.8)
[2020-10-01 12:20] LABS: B Type Natriuretic Peptide 19 pg/mL (<100); Troponin-I High Sensitivity < 3.5 ng/L (<3.5-17.0)
[2020-10-01 12:34] LABS: Influenza A PCR NEGATIVE (Negative); Influenza B PCR NEGATIVE (Negative); Resp Syncy Virus RNA Qual PCR NEGATIVE (Negative); SARS COV2 PCR INHOUSE NEGATIVE (Negative)
[2020-10-01] MEDS: 0.9 % Sodium Chloride 1,000 ML 999 ML IV (12:45)
[2020-10-01 12:49] LABS: INTERNATIONAL NORM RATIO 0.9 (0.9-1.1); Prothrombin Time 10.5 SEC (10.8-13.0)
[2020-10-01 12:52] LABS: Partial Thromboplastin Time 31.9 SEC (24.1-38.0)
[2020-10-01 12:58] LABS: Alanine Aminotransferase 30 U/L (0-31); Albumin Level 3.8 g/dL (3.5-5.0); Alkaline Phosphatase 149 U/L (39-117); Anion Gap 16 (12-20); Aspartate Amino Transferase 24 U/L (5-31); Bilirubin Direct 0.2 mg/dL (0.0-0.5); Bilirubin Total 0.5 mg/dL (0.0-1.0); Blood Urea Nitrogen 24 mg/dL (9-16); Carbon Dioxide 29 mmol/L (22-29); Chloride 96 mmol/L (96-108); Creatinine Clr Calc Pharmacy 97.8; Estimated Glomerular Filt Rate > 60; Glucose Random 305 mg/dL (60-115); Lactate Dehydrogenase 163 U/L (122-220); Lipase 44 U/L (8-78); Potassium 4.2 mmol/L (3.3-5.1); Sodium 137 mmol/L (135-145); Total Protein 6.4 g/dL (6.5-8.0)
[2020-10-01 13:19] LABS: Ferritin 65 ng/mL (10-250)
[2020-10-01] MEDS: Famotidine/PF 20 MG/2 ML VIAL IVPUSH (13:27)
[2020-10-01 15:25] LABS: D Dimer 231 NG/ML
[2020-10-01] MEDS: predniSONE 20 MG TABLET 60 MG PO (16:12)
[2020-10-01 16:20] LABS: Troponin-I High Sensitivity 5.7 ng/L (<3.5-17.0)
--- NOTE | 2020-10-01 16:25 | PC.NURSE ---
pt has been resting quietly, no complaints of shortness of breath. she ambulated in [place] with [employer], gait steady with device. Pt back to room, awaits CT scan.
[2020-10-01] MEDS: iohexoL 350 MG/ML 100 ML INFUS..BTL IV (20:25)
== END 2020-10-01 20:00 | disposition home or self-care (01) ==
PROVIDERS: Physician Assistant; Emergency Provider Emergency Medicine; PCP Internal Medicine
DX: J45.901 Unspecified asthma with (acute) exacerbation (principal); Z20.822 Contact with and (suspected) exposure to COVID-19; E11.9 Type 2 diabetes mellitus without complications; I10 Essential (primary) hypertension; E78.5 Hyperlipidemia, unspecified; Z87.891 Personal history of nicotine dependence
CPT/HCPCS: 0241U; 36415; 71045; 71275; 80053; 80076; 82248; 82728; 83615; 83690; 83880; 84145; 84484; 85025; 85379; 85610; 85730; 93005; 94640; 94664; 96361; 96374; 99284; 99285; Q9967

== ENCOUNTER 2020-10-06 02:05 | Inpatient (IN) | payer OTHER, SELFPAY ==
[2020-10-06] VITALS (12 sets, daily range): BP systolic 95–159; BP diastolic 68–93; PULSE 89–103; RESP 20–25; TEMP 35.9–37.2; O2SAT 78–99; BMI 42.1
--- NOTE | ~2020-10-06 | XR_ITS ---
EXAMINATION: XR CHEST CLINICAL INFORMATION: Shortness of breath COMPARISON: 10/01/2020 TECHNIQUE: Frontal view of the chest was obtained. FINDINGS: Cardiac leads overlie the chest. The lungs are well expanded. There is no focal consolidation, edema, or effusion. No pneumothorax. The cardiomediastinal silhouette is within normal limits. No acute osseous abnormality. XR/XR chest 1V IMPRESSION: No acute pulmonary finding.
[2020-10-06 03:04] LABS: Glucose, Whole Blood 584 mg/dL (60-115)
--- NOTE | 2020-10-06 03:04 | ECG_ITS ---
Test Reason : SOB Blood Pressure : / mmHG Vent. Rate : 090 BPM Atrial Rate : 090 BPM P-R Int : 146 ms QRS Dur : 088 ms QT Int : 378 ms P-R-T Axes : 031 000 023 degrees QTc Int : 462 ms Poor data quality, interpretation may be adversely affected Normal sinus rhythm Cannot rule out Inferior infarct , age undetermined Cannot rule out Anterior infarct (cited on or before 01-OCT-2020) Abnormal ECG When compared with ECG of 01-OCT-2020 11:04, No significant change was found Referred By: Lana Pan Electronically Signed By:CYNTHIA REN MD
--- NOTE | 2020-10-06 03:15 | PC.NURSE ---
POC 584 mg/dl, aware. Pt [facility]. Pt reports increased SOB, states she was just seen here 3 days ago, told she was having an asthma exacerbation and sent home. Pt reports being given 1 dose of steroids while in the ED and sent home with a RX for ABX. Pt reports no relief with ABX, pt reports increased SOB while ambulating, denies wearing O2 at home. Pt reports no relief with inhalers. Pt noted to be hyperglycemic, states she takes 64 units of Lantus morning and night with little effect, pt also taking Glipizide for DM. Pt most recently took Lantus before going to bed. Pt ambulating to the bathroom to provide urine sample with an unsteady gait, uses cane for ambulation at baseline. Labs and urine obtained and sent. VSS at this time, awaiting primary MD lubin.
[2020-10-06 03:20] LABS: Basophils Percent Auto 0.3 % (0-2); Eosinophils Absolute Auto 0.1 X10*3/uL (0.0-0.4); Eosinophils Percent Auto 1.1 % (0-4); Hematocrit 40.7 % (37-47); Hemoglobin 13.5 g/dl (12.0-16.0); Imm Gran Abs Auto 0.04 X10*3/uL (0.00-0.03); Imm Gran Pct Auto 0.6 % (0.0-0.4); Lymphocytes Absolute Auto 1.5 X10*3/uL (1.2-4.9); MANUAL DIFF FLAG NO; Mean Corpuscular HGB Conc 33.2 g/dl (31.0-35.0); Mean Corpuscular Hemoglobin 29.7 pg (27.0-33.0); Mean Corpuscular Volume 89.6 fL (80-98); Mean Platelet Volume 9.3 fL (9.4-12.3); Monocytes Absolute Auto 0.3 X10*3/uL (0.1-1.2); Monocytes Percent Auto 4.4 % (2-11); Neutrophils Absolute Auto 4.5 X10*3/uL (2.0-8.3); Neutrophils Percent Auto 70.6 % (45-73); Platelet Count 157 X10*3/uL (160-400); Red Blood Count 4.54 X10*6/uL (4.20-5.50); Red Cell Distribution Width 13.3 % (11.0-16.0); White Blood Count 6.4 X10*3/uL (4.8-10.8)
[2020-10-06 03:23] LABS: Glucose Urine UA >=1000 MG/DL (NEG); Leukocyte Esterase Urine TRACE (NEG); Nitrite Urine NEG (NEG); PH 5.5 (5.0-8.0); UACC Culture Trigger YES; Urine Blood TRACE (NEG); Urine Ketones NEG (NEG); Urine Protein NEG (NEG-TRACE)
[2020-10-06 03:25] LABS: Appearance Urine HAZY; Color Urine YELLOW
[2020-10-06 03:40] LABS: Acetone, serum QL Negative (Negative)
[2020-10-06 03:56] LABS: Alanine Aminotransferase 30 U/L (0-31); Albumin Level 3.6 g/dL (3.5-5.0); Alkaline Phosphatase 138 U/L (39-117); Anion Gap 20 (12-20); Aspartate Amino Transferase 30 U/L (5-31); Bilirubin Total 0.6 mg/dL (0.0-1.0); Blood Urea Nitrogen 15 mg/dL (9-16); Calcium 8.8 mg/dL (8.4-10.2); Carbon Dioxide 22 mmol/L (22-29); Chloride 98 mmol/L (96-108); Creatinine Clr Calc Pharmacy 72.3; Estimated Glomerular Filt Rate 52; Glucose Random 649 mg/dL (60-115); Lipase 42 U/L (8-78); Potassium 4.9 mmol/L (3.3-5.1); Sodium 135 mmol/L (135-145); Total Protein 6.7 g/dL (6.5-8.0)
[2020-10-06] MEDS: Albuterol Sulfate 90 MCG 8 GM INHALER 4 PUFF INHALE (04:01)
--- NOTE | 2020-10-06 04:01 | ED_ITS ---
HPI - General Adult General Chief complaint: Upper Respiratory Symptoms Stated complaint: SOB/COUGH Time Seen by Provider: 10/06/20 03:01 Source: patient Mode of arrival: EMS History of Present Illness HPI narrative: 50-year-old female who presents with persistent and worsening shortness of breath with cough, was seen here on 10/01 with similar complaint and at that time noted to be COVID-19 negative and treated for CAP with a Z-Mani. Patient denies any fevers, chills, GI symptoms, symptoms and states she has continued to take her asthma medication as directed, but states she has not improved. She denies any orthopnea or bilateral lower leg swelling. Related Data Home Medications Medication Instructions Recorded Confirmed aripiprazole 10 mg tablet 10 mg PO QAM 06/22/20 aspirin 325 mg tablet 325 mg PO DAILY 06/22/20 blood sugar diagnostic #10 ea 06/22/20 bupropion HCl 150 mg 24 hr tablet, 150 mg PO QAM 06/22/20 extended release cetirizine 10 mg tablet 10 mg PO DAILY 06/22/20 diltiazem HCl 240 mg 240 mg PO DAILY 06/22/20 capsule,extended release 24 hr duloxetine 30 mg capsule,delayed 30 mg PO BID 06/22/20 release fluticasone propionate 115 2 puff INHALATION BID 06/22/20 mcg-salmeterol 21 mcg/actuation HFA inhaler fluticasone propionate 230 2 puff INHALATION BID 06/22/20 mcg-salmeterol 21 mcg/actuation HFA inhaler fluticasone propionate 50 0 mcg INTRANASAL 06/22/20 mcg/actuation nasal spray,suspension gabapentin 300 mg capsule 300 mg PO BID 06/22/20 glipizide 5 mg tablet 5 mg PO BID 06/22/20 ibuprofen 600 mg tablet 600 mg PO Q8H PRN 06/22/20 insulin aspart U-100 100 unit/mL SUBCUT 06/22/20 subcutaneous solution insulin glargine 100 unit/mL (3 62 unit SUBCUT BID 06/22/20 mL) subcutaneous pen liraglutide 0.6 mg/0.1 mL (18 mg/3 1.8 mg SUBCUT DAILY 06/22/20 mL) subcutaneous pen injector loratadine 10 mg tablet 10 mg PO DAILY 06/22/20 metformin 1,000 mg tablet 1,000 mg PO BID 06/22/20 omeprazole 20 mg capsule,delayed 20 mg PO DAILY 06/22/20 release pravastatin 20 mg tablet 20 mg PO DAILY 06/22/20 Previous Rx's Medication Instructions Recorded cephalexin [Keflex] 500 mg PO QID #28 cap 03/17/20 doxycycline monohydrate 100 mg PO BID #14 cap 03/17/20 albuterol sulfate [Ventolin HFA] 2 puff INHALATION Q4-6H PRN #1 ea 03/23/20 albuterol sulfate 90 mcg/actuation 1 inh INHALATION Q6H PRN #8.5 g 06/22/20 aerosol inhaler doxycycline hyclate 100 mg tablet 100 mg PO BID 10 Days #20 tab 09/11/20 azithromycin See Rx Instructions .ROUTE 10/01/20 .COMPLEX #6 tab benzonatate [Tessalon Perles] 100 mg PO TID PRN #15 cap 10/01/20 Allergies Allergy/AdvReac Type Severity Reaction Status Date / Time adhesive tape [ADHESIVE TAPE] Allergy Intermediate BLISTERS Verified 03/17/20 17:31 tramadol [TRAMADOL] Allergy Intermediate NAUSEA & Verified 03/17/20 17:31 VOMITING, vomiting acetaminophen [Percocet] Allergy Unknown Unknown Verified 03/17/20 17:31 oxycodone [OXYCODONE] AdvReac Unknown ITCHING Verified 03/17/20 17:31 Adhesive tape Allergy Unknown Unknown Uncoded 03/17/20 17:31 adhesive tape Allergy Unknown Unknown Uncoded 03/17/20 17:31 Review of Systems Review of Systems: Pertinent positives and negatives as stated in HPI 10 point review of systems otherwise negative. FOR[facility], [facility] Past Medical History Source: nursing notes reviewed Medical History Asthma delivery delivered Cholecystectomy planned Depression Diabetes Hernia of abdominal wall High cholesterol HTN (hypertension) Tachycardia Surgical History H/O foot surgery Social History Social History Alcohol intake: never Smoking Status: Never smoker Advance Directives: No Physical Exam Vital Signs: Vital Signs: Last Vital Signs Temp 96.7 F L 10/06/20 02:30 Pulse 96 10/06/20 02:39 Resp 20 10/06/20 02:39 BP 138/86 10/06/20 02:39 Pulse Ox 98 10/06/20 04:39 Body Mass Index 42.1 VITAL SIGNS: Reviewed. GENERAL: Well developed, well nourished, in no acute distress. HEAD: Normocephalic/atraumatic, EYES: PERRLA, EOMI EARS: Ext canals without abnormality NOSE: Nares patent bilateral OROPHARYNX: no oral lesions noted, posterior pharynx clear and non-erythematous without noted tonsillar enlargement/erythema/exudates NECK: Supple, no adenopathy LUNGS: No wheezing noted, decreased breath sounds by basilar, tachypnea+ SpO2<97> CARDIOVASCULAR: Regular rate and rhythm without noted murmurs ABDOMEN: Obese, Soft, non-tender, non-distended with bowel sounds. NEUROLOGIC: Alert and oriented x 4. Course Course Course Narrative: 50-year-old female with history and clinical presentation although suggestive for possible asthma exacerbation clinical exam unlikely, suspect possible COVID-19 infection or pneumonia. On review of all investigations patient is noted to be positive for COVID-19 and also is noted to have a UTI. However, tachypnea and other SIRS like response that is noted is not attributable to patient's UTI and is most consistent with diagnosis of COVID-19. In during patient's stay she was noted to dip down into the low 80s and high 70s while calmly watching TV and 2 L of nasal cannula were provided as well as steroids and albuterol treatment. Patient received 1 g of Rocephin for UTI and this case was discussed with the inpatient hospitalist team who is agreeable for admission. Medical Decision Making Lab Data Result diagrams: 10/06/20 03:09 10/06/20 03:09 Labs: Lab Results 10/06/20 10/06/20 10/06/20 Range/Units 02:41 03:09 03:09 WBC 6.4 (4.8-10.8) X10*3/uL RBC 4.54 (4.20-5.50) X10*6/uL Hgb 13.5 (12.0-16.0) g/dl Hct 40.7 (37-47) % MCV 89.6 (80-98) fL MCH 29.7 (27.0-33.0) pg MCHC 33.2 (31.0-35.0) g/dl RDW 13.3 (11.0-16.0) % Plt Count 157 L (160-400) X10*3/uL MPV 9.3 L (9.4-12.3) fL Immature Gran % (Auto) 0.6 H (0.0-0.4) % Neut % (Auto) 70.6 (45-73) % Lymph % (Auto) 23.0 (20-40) % [place] % (Auto) 4.4 (2-11) % Eos % (Auto) 1.1 (0-4) % Baso % (Auto) 0.3 (0-2) % Lymph # (Auto) 1.5 (1.2-4.9) X10*3/uL [place] # (Auto) 0.3 (0.1-1.2) X10*3/uL Eos # (Auto) 0.1 (0.0-0.4) X10*3/uL Baso # (Auto) 0.0 (0.0-0.2) X10*3/uL Abs Immat Gran (auto) 0.04 H (0.00-0.03) X10*3/uL Absolute Neuts (auto) 4.5 (2.0-8.3) X10*3/uL Absolute Nucleated RBC 0.000 (0.0-0.012) X10*3/uL Nucleated RBC % (auto) 0.0 (0.0-0.2) /100WBC Sodium (135-145) mmol/L Potassium (3.3-5.1) mmol/L Chloride (96-108) mmol/L Carbon Dioxide (22-29) mmol/L Anion Gap (12-20) BUN (9-16) mg/dL Creatinine (0.5-1.4) mg/dL Estim Creat Clear Calc Estimated GFR POC Glucose 584 H* (60-115) mg/dL Random Glucose (60-115) mg/dL Calcium (8.4-10.2) mg/dL Total Bilirubin (0.0-1.0) mg/dL AST (5-31) U/L ALT (0-31) U/L Alkaline Phosphatase (39-117) U/L Total Protein (6.5-8.0) g/dL Albumin (3.5-5.0) g/dL Lipase (8-78) U/L Urine Color Urine Appearance Urine pH (5.0-8.0) Ur Specific [place] (1.005-1.025) Urine Protein (NEG-TRACE) MG/DL Urine Glucose (UA) (NEG) MG/DL Urine Ketones (NEG) MG/DL Urine Blood (NEG) Urine Nitrite (NEG) Ur Leukocyte Esterase (NEG) Urine RBC (0) /HPF Urine WBC (0-4) /HPF Ur Squamous Epith Cells /LPF Urine Bacteria /LPF Urine Yeast /HPF Acetone, Qual Negative (Negative) COVID-19 ([facility]) (Negative) COVID-19 Clin Com 10/06/20 10/06/20 10/06/20 Range/Units 03:09 03:10 04:09 WBC (4.8-10.8) X10*3/uL RBC (4.20-5.50) X10*6/uL Hgb (12.0-16.0) g/dl Hct (37-47) % MCV (80-98) fL MCH (27.0-33.0) pg MCHC (31.0-35.0) g/dl RDW (11.0-16.0) % Plt Count (160-400) X10*3/uL MPV (9.4-12.3) fL Immature Gran % (Auto) (0.0-0.4) % Neut % (Auto) (45-73) % Lymph % (Auto) (20-40) % [place] % (Auto) (2-11) % Eos % (Auto) (0-4) % Baso % (Auto) (0-2) % Lymph # (Auto) (1.2-4.9) X10*3/uL [place] # (Auto) (0.1-1.2) X10*3/uL Eos # (Auto) (0.0-0.4) X10*3/uL Baso # (Auto) (0.0-0.2) X10*3/uL Abs Immat Gran (auto) (0.00-0.03) X10*3/uL Absolute Neuts (auto) (2.0-8.3) X10*3/uL Absolute Nucleated RBC (0.0-0.012) X10*3/uL Nucleated RBC % (auto) (0.0-0.2) /100WBC Sodium 135 (135-145) mmol/L Potassium 4.9 (3.3-5.1) mmol/L Chloride 98 (96-108) mmol/L Carbon Dioxide 22 (22-29) mmol/L Anion Gap 20 (12-20) BUN 15 (9-16) mg/dL Creatinine 1.11 (0.5-1.4) mg/dL Estim Creat Clear Calc 72.3 Estimated GFR 52 POC Glucose (60-115) mg/dL Random Glucose 649 H* (60-115) mg/dL Calcium 8.8 (8.4-10.2) mg/dL Total Bilirubin 0.6 (0.0-1.0) mg/dL AST 30 (5-31) U/L ALT 30 (0-31) U/L Alkaline Phosphatase 138 H (39-117) U/L Total Protein 6.7 (6.5-8.0) g/dL Albumin 3.6 (3.5-5.0) g/dL Lipase 42 (8-78) U/L Urine Color YELLOW Urine Appearance HAZY Urine pH 5.5 (5.0-8.0) Ur Specific [place] 1.010 (1.005-1.025) Urine Protein NEG (NEG-TRACE) MG/DL Urine Glucose (UA) >=1000 H (NEG) MG/DL Urine Ketones NEG (NEG) MG/DL Urine Blood TRACE (NEG) Urine Nitrite NEG (NEG) Ur Leukocyte Esterase TRACE H (NEG) Urine RBC 0-2 (0) /HPF Urine WBC 15-29 H (0-4) /HPF Ur Squamous Epith Cells TRACE /LPF Urine Bacteria NONE /LPF Urine Yeast 1+ /HPF Acetone, Qual (Negative) COVID-19 ([facility]) Positive A (Negative) COVID-19 Clin Com See Note Discharge Plan Discharge Clinical Impression: Acute respiratory failure due to COVID-19, Hypoxia, Hyperglycemia Patient Disposition: Admitted As Inpatient
--- NOTE | 2020-10-06 04:01 | PC.NURSE ---
Pt noted to desat to 87%, provided with inhaler per AUG. Pt reports difficulty using inhaler as it aggravates her cough. MD at bedside for primary eval.
[2020-10-06 04:37] LABS: COVID-19 Test Positive (Negative); IDNOW Serial# 9DD0AD1C
[2020-10-06] MEDS: methylPREDNISolone Sod Succ 125 MG/2 ML VIAL IVPUSH (04:39)
[2020-10-06] MEDS: Insulin Lispro 100 UNIT/ML 3 ML VIAL SUBCUT ×6 (04:39→20:03)
[2020-10-06] MEDS: Albuterol Sulfate (0.083%) 2.5 MG/3 ML VIAL.NEB 5 MG INHALE (04:43)
--- NOTE | 2020-10-06 04:47 | PC.NURSE ---
Pt medicated per MAR, RT at bedside for treatment. VSS. Continue to monitor.
[2020-10-06 04:52] LABS: RBC Urine 0-2 /HPF (0); Squamous Epithelial Cell Urine TRACE /LPF
[2020-10-06] MEDS: Benzonatate 100 MG CAPSULE 200 MG PO (05:43)
[2020-10-06 05:45] LABS: Glucose, Whole Blood 529 mg/dL (60-115)
--- NOTE | 2020-10-06 06:20 | PC.NURSE ---
Med Rec completed at bedside with pt. Per pt, she has been out of many medications. Pt also reports that she does not take her insulin or antidiabetic medication regularly because she doesn't eat and doesn't check blood sugars. Pt aware of plan for admission.
--- NOTE | 2020-10-06 06:45 | PC.NURSE ---
Pt ambulatory across the [facility] to the bathroom. Upon return to room, pt extremely SOB, speaking in sentence fragments. Pt recovered quickly when oxygen was reapplied. Plan to use bedside commode from now on.
[2020-10-06 07:26] LABS: Glucose, Whole Blood 497 mg/dL (60-115)
--- NOTE | 2020-10-06 07:31 | PM.IMHP ---
History of Present Illness Date of Service: 10/06/20 Chief Complaint: Shortness of breath 50-year-old woman with past medical history of diabetes, depression, HLD, HTN, presents to the hospital with complaints of worsening shortness of breath. Patient was seen in the ED on 10/01, for asthma exacerbation was given steroids and sent home, returns today stating that her shortness of breath has worsened. She has a cough, some phlegm production, no fever no chills, she has some wheezing, abdominal wall pain with coughing, headache, chest wall pain with coughing, denies any abdominal pain nausea or vomiting. She reports urinary hesitancy, urgency. No lower extremity edema. On arrival to the ED hemodynamically stable with a temperature of 96.7?, heart rate of 103, blood pressure of 147/82, satting 97% on room air although her oxygen did drop mid 70s, was placed on nasal cannula and now satting 94% Labs are significant for WBC count 6.4, hemoglobin of 13.5, glucose on arrival was 649, patient reports that she has not had her insulin, metformin or glipizide for couple of days. Estrace and WBC, COVID-19 positive today. Chest x-ray shows no acute pulmonary findings. Past medical history as below and confirmed with patient Review of Systems Review of Systems: Yes all other systems are reviewed and are negative [facility] Medical History Asthma delivery delivered Cholecystectomy planned Depression Diabetes Hernia of abdominal wall High cholesterol HTN (hypertension) Tachycardia Surgical History H/O foot surgery Social History Alcohol intake: never Smoking Status: Never smoker Advance Directives: No Meds Allergies Allergy/AdvReac Type Severity Reaction Status Date / Time adhesive tape [ADHESIVE TAPE] Allergy Intermediate BLISTERS Verified 03/17/20 17:31 tramadol [TRAMADOL] Allergy Intermediate NAUSEA & Verified 03/17/20 17:31 VOMITING, vomiting acetaminophen [Percocet] Allergy Unknown Unknown Verified 03/17/20 17:31 oxycodone [OXYCODONE] AdvReac Unknown ITCHING Verified 03/17/20 17:31 Adhesive tape Allergy Unknown Unknown Uncoded 03/17/20 17:31 adhesive tape Allergy Unknown Unknown Uncoded 03/17/20 17:31 Active Medications: Current Medications Generic Name Dose Route Start Last Admin Trade Name Freq PRN Reason Stop Dose Admin Acetaminophen 650 mg 10/06/20 07:14 Acetaminophen 325 Mg Tablet PO Q6H PRN Pain, Mild (Pain Scale 1-3) Albuterol/Ipratropium 3 ml 10/06/20 08:00 Albuterol/Iprat 2.5/0.5mg 3 Ml Ampul.Neb INHALE RQ4H WHILE AWAKE BRIDGER Albuterol/Ipratropium 3 ml 10/06/20 07:14 Albuterol/Iprat 2.5/0.5mg 3 Ml Ampul.Neb INHALE RQ4H PRN Shortness of Breath/Wheezing Aripiprazole 10 mg 10/06/20 09:00 Aripiprazole 10 Mg Tablet PO DAILY [facility] Aspirin 325 mg 10/06/20 09:00 Aspirin 325 Mg Tablet PO DAILY [facility] Benzonatate 100 mg 10/06/20 07:14 Benzonatate 100 Mg Capsule PO TID PRN cough Bupropion HCl 150 mg 10/06/20 07:14 Bupropion Hcl Xl 150 Mg Tab.Er.24h PO QAM [facility] Dexamethasone Sodium Phosphate 6 mg 10/06/20 09:00 Dexamethasone Sod Phosphate 4 Mg/Ml Vial IVPUSH DAILY [facility] Docusate Sodium 100 mg 10/06/20 07:14 Docusate Sodium 100 Mg Capsule PO DAILY PRN Constipation Duloxetine HCl 30 mg 10/06/20 09:00 Duloxetine Hcl 30 Mg Capsule. PO BID [facility] Gabapentin 300 mg 10/06/20 09:00 Gabapentin 300 Mg Capsule PO BID [facility] Heparin Sodium (Porcine) 5,000 unit 10/06/20 07:15 Heparin Sodium,Porcine 5,000 Unit/Ml Vial SUBCUT Q12H [facility] Ibuprofen 600 mg 10/06/20 07:14 Ibuprofen 600 Mg Tablet PO Q8H PRN pain Insulin Glargine 64 unit 10/06/20 09:00 Insulin Glargine,Hum.Rec.Anlog 100 Unit/Ml 10 Ml Vial SUBCUT BID [facility] Loratadine 10 mg 10/06/20 09:00 Loratadine 10 Mg Tablet PO DAILY [facility] Omeprazole 20 mg 10/06/20 09:00 Omeprazole 20 Mg Capsule. PO BID [facility] Ondansetron HCl 4 mg 10/06/20 07:14 Ondansetron Hcl 4 Mg/2 Ml Vial IVPUSH Q8H PRN Nausea and Vomiting Pravastatin Sodium 20 mg 10/06/20 09:00 Pravastatin Sodium 20 Mg Tablet PO DAILY [facility] Sodium Chloride 3 ml 10/06/20 08:00 0.9 % Sodium Chloride Flush 3 Ml Syringe IVFLU QSDCFT [facility] Home Medications Medication Instructions Recorded Confirmed Last Taken Type aripiprazole 10 mg tablet 10 mg PO QAM 06/22/20 10/06/20 10/03/20 History aspirin 325 mg tablet 325 mg PO DAILY 06/22/20 10/06/20 10/03/20 History blood sugar diagnostic #10 ea 06/22/20 Unknown History bupropion HCl 150 mg 24 hr tablet, 150 mg PO QAM 06/22/20 10/06/20 10/04/20 History extended release cetirizine 10 mg tablet 10 mg PO DAILY 06/22/20 10/06/20 10/05/20 08:00 History duloxetine 30 mg capsule,delayed 30 mg PO BID 06/22/20 10/06/20 10/04/20 History release fluticasone propionate 230 2 puff INHALATION BID 06/22/20 10/06/20 10/05/20 22:30 History mcg-salmeterol 21 mcg/actuation HFA inhaler gabapentin 300 mg capsule 300 mg PO BID 06/22/20 10/06/20 10/05/20 22:30 History glipizide 5 mg tablet 5 mg PO BID 06/22/20 10/06/20 10/05/20 17:00 History ibuprofen 600 mg tablet 600 mg PO Q8H PRN 06/22/20 10/06/20 10/04/20 History insulin aspart U-100 100 unit/mL SUBCUT 06/22/20 Unknown History subcutaneous solution insulin glargine 100 unit/mL (3 64 unit SUBCUT BID 06/22/20 10/06/20 10/05/20 22:30 History mL) subcutaneous pen metformin 1,000 mg tablet 1,000 mg PO BID 06/22/20 10/06/20 10/04/20 History omeprazole 20 mg capsule,delayed 20 mg PO BID 06/22/20 10/06/20 10/05/20 22:30 History release pravastatin 20 mg tablet 20 mg PO DAILY 06/22/20 10/06/20 10/05/20 17:00 History Physical Exam Vital Signs and Narrative: Vital Signs: Last Vital Signs Temp 96.7 F L 10/06/20 02:30 Pulse 89 10/06/20 07:21 Resp 25 H 10/06/20 07:21 BP 156/84 H 10/06/20 07:21 Pulse Ox 94 10/06/20 07:21 Body Mass Index 42.1 Const: General: cooperative and no acute distress Orientation/consciousness: patient oriented x3 Eyes: General: appearance normal, both eyes and all related structures Resp: Effort & Inspection: normal respiratory effort and able to speak in complete sentences Cardio: Rate: regular rate Rhythm: regular rhythm GI: Palpation (GI): Soft to palpation Auscultation: normal bowel sounds Skin: General skin exam: no rashes or lesions noted Neuro: General: patient oriented x3 Cognition (Neuro): normal cognition Extrem: General: Yes normal to inspection and Yes no pedal edema Results Labs CBC and Chem 7: 10/06/20 03:09 10/06/20 03:09 Labs: Laboratory Results - last 24 hr 10/06/20 10/06/20 10/06/20 02:41 03:09 03:09 MCV 89.6 MCH 29.7 MCHC 33.2 RDW 13.3 Plt Count 157 L MPV 9.3 L Immature Gran % (Auto) 0.6 H Neut % (Auto) 70.6 Lymph % (Auto) 23.0 [place] % (Auto) 4.4 Eos % (Auto) 1.1 Baso % (Auto) 0.3 Lymph # (Auto) 1.5 [place] # (Auto) 0.3 Eos # (Auto) 0.1 Baso # (Auto) 0.0 Abs Immat Gran (auto) 0.04 H Absolute Neuts (auto) 4.5 Absolute Nucleated RBC 0.000 Nucleated RBC % (auto) 0.0 Anion Gap Estim Creat Clear Calc Estimated GFR POC Glucose 584 H* Random Glucose Calcium Total Bilirubin AST ALT Alkaline Phosphatase Total Protein Albumin Lipase Urine Color Urine Appearance Urine pH Ur Specific [place] Urine Protein Urine Glucose (UA) Urine Ketones Urine Blood Urine Nitrite Ur Leukocyte Esterase Urine RBC Urine WBC Ur Squamous Epith Cells Urine Bacteria Urine Yeast Acetone, Qual Negative COVID-19 ([facility]) COVID-19 Clin Com 10/06/20 10/06/20 10/06/20 03:09 03:10 04:09 MCV MCH MCHC RDW Plt Count MPV Immature Gran % (Auto) Neut % (Auto) Lymph % (Auto) [place] % (Auto) Eos % (Auto) Baso % (Auto) Lymph # (Auto) [place] # (Auto) Eos # (Auto) Baso # (Auto) Abs Immat Gran (auto) Absolute Neuts (auto) Absolute Nucleated RBC Nucleated RBC % (auto) Anion Gap 20 Estim Creat Clear Calc 72.3 Estimated GFR 52 POC Glucose Random Glucose 649 H* Calcium 8.8 Total Bilirubin 0.6 AST 30 ALT 30 Alkaline Phosphatase 138 H Total Protein 6.7 Albumin 3.6 Lipase 42 Urine Color YELLOW Urine Appearance HAZY Urine pH 5.5 Ur Specific [place] 1.010 Urine Protein NEG Urine Glucose (UA) >=1000 H Urine Ketones NEG Urine Blood TRACE Urine Nitrite NEG Ur Leukocyte Esterase TRACE H Urine RBC 0-2 Urine WBC 15-29 H Ur Squamous Epith Cells TRACE Urine Bacteria NONE Urine Yeast 1+ Acetone, Qual COVID-19 ([facility]) Positive A COVID-19 Clin Com See Note 10/06/20 10/06/20 05:41 07:19 MCV MCH MCHC RDW Plt Count MPV Immature Gran % (Auto) Neut % (Auto) Lymph % (Auto) [place] % (Auto) Eos % (Auto) Baso % (Auto) Lymph # (Auto) [place] # (Auto) Eos # (Auto) Baso # (Auto) Abs Immat Gran (auto) Absolute Neuts (auto) Absolute Nucleated RBC Nucleated RBC % (auto) Anion Gap Estim Creat Clear Calc Estimated GFR POC Glucose 529 H* 497 H* Random Glucose Calcium Total Bilirubin AST ALT Alkaline Phosphatase Total Protein Albumin Lipase Urine Color Urine Appearance Urine pH Ur Specific [place] Urine Protein Urine Glucose (UA) Urine Ketones Urine Blood Urine Nitrite Ur Leukocyte Esterase Urine RBC Urine WBC Ur Squamous Epith Cells Urine Bacteria Urine Yeast Acetone, Qual COVID-19 ([facility]) COVID-19 Clin Com Imaging Radiologist's Impressions: Impressions Chest X-Ray 10/06/20 03:04 IMPRESSION: No acute pulmonary finding. Assessment and Plan (1) Acute respiratory failure due to COVID-19: Status: Acute (2) Hyperglycemia: Status: Acute (3) Asthma exacerbation: Status: Acute (4) SARS-CoV-2 positive: Status: Acute (5) UTI (urinary tract infection): Status: Acute 50-year-old female presents to the hospital with complaints of worsening shortness of breath found to have COVID-19 positive # acute hypoxic respiratory failure - oxygen dropped to the 70s in the ED - currently on O2 maintaining an oxygen level of 93% - history of asthma, today COVID positive - chest x-ray negative for any evidence of pulmonary disease - will start her on Decadron 6 mg daily - DuoNeb p.r.n. and q.i.d. # hyperglycemia - most likely secondary to uncontrolled diabetes - patient has not had her insulin or p.o. antihyperglycemics for several days - no DKA or HHS - will resume her insulin of 64 units b.i.d. as well as low-dose sliding scale insulin - hold oral antihyperglycemics - monitor for continued hyperglycemia in the setting of steroid use # UTI - UA positive, has hesitancy and urgency - will start her on ceftriaxone - follow cultures # asthma exacerbation - has wheezing, dyspnea, COVID-19 positive - start her on steroids, DuoNeb p.r.n. and scheduled DVT prophylaxis: Heparin subQ
[2020-10-06] MEDS: Heparin Sodium,Porcine 5,000 UNIT/ML VIAL 5000 UNIT SUBCUT ×2 (07:49→19:04)
[2020-10-06] MEDS: Insulin Glargine,Hum.rec.anlog 100 UNIT/ML 10 ML VIAL 64 UNIT SUBCUT ×2 (08:22→20:04)
[2020-10-06] MEDS: Gabapentin 300 MG CAPSULE PO ×2 (08:23→20:01)
[2020-10-06] MEDS: cefTRIAXone sodium 1 GM in 0.9 % Sodium Chloride 50 ML IV (08:23)
[2020-10-06] MEDS: 0.9 % Sodium Chloride Flush 3 ML SYRINGE IVFLUSH ×3 (08:23→23:25)
[2020-10-06] MEDS: Aspirin 325 MG TABLET PO (08:23)
[2020-10-06] MEDS: Loratadine 10 MG TABLET PO (08:24)
[2020-10-06] MEDS: Omeprazole 20 MG CAPSULE.DR PO (08:24)
[2020-10-06 12:27] LABS: Glucose, Whole Blood 453 mg/dL (60-115)
--- NOTE | 2020-10-06 13:16 | MHC.CM.PN ---
IMM 10/06/20 Female 50 DX Covid+. She lives in a correction run by [facility]. She is independent with equipment. Independent ADLs. DP at this time is Return is to [facility]. Her car is in the lot. CM will follow for a change in DC needs.
[2020-10-06] MEDS: guaiFENesin 100 MG/5 ML LIQUID PO ×2 (13:42→23:37)
[2020-10-06 17:17] LABS: Glucose, Whole Blood 532 mg/dL (60-115)
[2020-10-06] MEDS: Insulin Lispro 100 UNIT/ML 3 ML VIAL 8 UNIT SUBCUT (17:22)
[2020-10-06 19:11] LABS: Glucose, Whole Blood 421 mg/dL (60-115)
[2020-10-06 19:11] LABS: Glucose, Whole Blood 423 mg/dL (60-115)
[2020-10-06 19:48] LABS: Glucose, Whole Blood 383 mg/dL (60-115)
[2020-10-06] MEDS: Pravastatin Sodium 20 MG TABLET PO (20:00)
[2020-10-07] VITALS (7 sets, daily range): BP systolic 126–146; BP diastolic 65–82; PULSE 78–86; RESP 18–20; TEMP 36.2–36.8; O2SAT 93–98
[2020-10-07] MEDS: Acetaminophen 325 MG TABLET 650 MG PO ×3 (02:28→20:59)
[2020-10-07 06:28] LABS: MANUAL DIFF FLAG NO
[2020-10-07] MEDS: Omeprazole 20 MG CAPSULE.DR PO (06:38)
[2020-10-07] MEDS: guaiFENesin 100 MG/5 ML LIQUID PO ×4 (06:42→20:59)
[2020-10-07] MEDS: Ibuprofen 600 MG TABLET PO ×2 (06:43→14:49)
[2020-10-07 06:52] LABS: Basophils Percent Auto 0.1 % (0-2); Eosinophils Absolute Auto 0.1 X10*3/uL (0.0-0.4); Eosinophils Percent Auto 0.9 % (0-4); Hematocrit 37.8 % (37-47); Hemoglobin 12.4 g/dl (12.0-16.0); Imm Gran Abs Auto 0.04 X10*3/uL (0.00-0.03); Imm Gran Pct Auto 0.5 % (0.0-0.4); Lymphocytes Absolute Auto 2.1 X10*3/uL (1.2-4.9); Lymphocytes Percent Auto 25.8 % (20-40); Mean Corpuscular HGB Conc 32.8 g/dl (31.0-35.0); Mean Corpuscular Hemoglobin 29.4 pg (27.0-33.0); Mean Corpuscular Volume 89.6 fL (80-98); Mean Platelet Volume 9.4 fL (9.4-12.3); Monocytes Absolute Auto 0.3 X10*3/uL (0.1-1.2); Monocytes Percent Auto 3.8 % (2-11); Neutrophils Absolute Auto 5.5 X10*3/uL (2.0-8.3); Neutrophils Percent Auto 68.9 % (45-73); Platelet Count 149 X10*3/uL (160-400); Red Blood Count 4.22 X10*6/uL (4.20-5.50); Red Cell Distribution Width 13.4 % (11.0-16.0); White Blood Count 7.9 X10*3/uL (4.8-10.8)
[2020-10-07 07:11] LABS: Anion Gap 13 (12-20); Blood Urea Nitrogen 21 mg/dL (9-16); Calcium 9.1 mg/dL (8.4-10.2); Carbon Dioxide 28 mmol/L (22-29); Chloride 101 mmol/L (96-108); Creatinine Clr Calc Pharmacy 114.8; Estimated Glomerular Filt Rate > 60; Glucose Random 241 mg/dL (60-115); Potassium 3.8 mmol/L (3.3-5.1); Sodium 138 mmol/L (135-145)
[2020-10-07 07:16] LABS: Glucose, Whole Blood 236 mg/dL (60-115)
[2020-10-07] MEDS: Insulin Lispro 100 UNIT/ML 3 ML VIAL SUBCUT ×4 (07:52→19:53)
[2020-10-07] MEDS: Insulin Glargine,Hum.rec.anlog 100 UNIT/ML 10 ML VIAL 64 UNIT SUBCUT (07:53)
[2020-10-07] MEDS: Aspirin 325 MG TABLET PO (07:53)
[2020-10-07] MEDS: cefTRIAXone sodium 1 GM in 0.9 % Sodium Chloride 50 ML IV (07:53)
[2020-10-07] MEDS: Heparin Sodium,Porcine 5,000 UNIT/ML VIAL 5000 UNIT SUBCUT ×2 (07:53→18:28)
[2020-10-07] MEDS: 0.9 % Sodium Chloride Flush 3 ML SYRINGE IVFLUSH ×3 (07:54→19:53)
[2020-10-07] MEDS: Gabapentin 300 MG CAPSULE PO ×2 (07:54→19:53)
[2020-10-07] MEDS: Loratadine 10 MG TABLET PO (07:54)
[2020-10-07] MEDS: dexAMETHasone sod phosphate 4 MG/ML VIAL 6 MG IVPUSH (07:54)
[2020-10-07] MEDS: glipiZIDE 5 MG TABLET PO ×2 (10:12→19:53)
[2020-10-07 11:10] LABS: Glucose, Whole Blood 246 mg/dL (60-115)
--- NOTE | 2020-10-07 14:47 | P.PNIM_ITS ---
Subjective Subjective Date of Service: 10/07/20 Interval History: the patient was seen and evaluated this morning Laying in bed, feels comfortable Denies any fever, chills Feels her shortness of breath has improved a little No reported other overnight events. Systemic review: No fever, chills or weakness No chest pain, palpitation Dyspnea on exertion, coughing No abdominal pain, nausea or vomiting Increased frequency No any rash or wounds Physical Exam Vital Signs: Vital Signs: Last Vital Signs Temp 98.0 F 10/07/20 11:31 Pulse 82 10/07/20 11:31 Resp 18 10/07/20 11:31 BP 135/82 10/07/20 11:31 Pulse Ox 98 10/07/20 11:31 Body Mass Index 42.1 Const: Other: Constitutional : Alert, oriented, not in distress Neck : Normal inspection, Supple Cardiovascular : RRR, S1 S2, no lower extremity edema Respiratory : Decreased bilateral air entry, no crackles, no wheezes or rhonchi Gastrointestinal: soft, lax, Normal bowel sounds, Non tender Skin : Warm/Dry, No rash Neurological : Alert & oriented x3, No focal deficit Objective Data Current Medications Generic Name Dose Route Start Last Admin Trade Name Freq PRN Reason Stop Dose Admin Acetaminophen 650 mg 10/06/20 07:14 10/07/20 11:46 Acetaminophen 325 Mg Tablet PO 650 mg Q6H PRN Administration Pain, Mild (Pain Scale 1-3) Albuterol Sulfate 2 puff 10/06/20 19:28 Albuterol Sulfate 90 Mcg 8 Gm Inhaler INHALE RQ4H PRN Shortness of Breath/Wheezing Aspirin 325 mg 10/06/20 09:00 10/07/20 07:53 Aspirin 325 Mg Tablet PO 325 mg DAILY BRIDGER Administration Dexamethasone Sodium Phosphate 6 mg 10/07/20 09:00 10/07/20 07:54 Dexamethasone Sod Phosphate 4 Mg/Ml Vial IVPUSH 6 mg DAILY BRIDGER Administration Docusate Sodium 100 mg 10/06/20 07:14 Docusate Sodium 100 Mg Capsule PO DAILY PRN Constipation Gabapentin 300 mg 10/06/20 09:00 10/07/20 07:54 Gabapentin 300 Mg Capsule PO 300 mg BID BRIDGER Administration Glipizide 5 mg 10/07/20 09:00 10/07/20 10:12 Glipizide 5 Mg Tablet PO 5 mg BID BRIDGER Administration Guaifenesin 5 ml 04/24/21 12:51 10/07/20 11:45 Guaifenesin 100 Mg/5 Ml Liquid PO 5 ml Q4H PRN Administration Cough Heparin Sodium (Porcine) 5,000 unit 10/06/20 07:15 10/07/20 07:53 Heparin Sodium,Porcine 5,000 Unit/Ml Vial SUBCUT 5,000 unit Q12H BRIDGER Administration Ceftriaxone Sodium 1 gm/ 50 mls @ 100 mls/hr 10/06/20 07:45 10/07/20 09:30 Sodium Chloride IV Infused Q24H BRIDGER Infusion Ibuprofen 600 mg 10/06/20 07:14 10/07/20 06:43 Ibuprofen 600 Mg Tablet PO 600 mg Q8H PRN Administration pain Insulin Glargine 70 unit 10/07/20 09:00 10/07/20 09:50 Insulin Glargine,Hum.Rec.Anlog 100 Unit/Ml 10 Ml Vial SUBCUT Not Given BID [facility] Insulin Human Lispro 0 unit 10/06/20 07:30 10/07/20 11:45 Insulin Lispro 100 Unit/Ml 3 Ml Vial SUBCUT 4 unit QIDACHS [facility] Administration Protocol Loratadine 10 mg 10/06/20 09:00 10/07/20 07:54 Loratadine 10 Mg Tablet PO 10 mg DAILY BRIDGER Administration Omeprazole 20 mg 10/06/20 09:00 10/07/20 06:38 Omeprazole 20 Mg Capsule.Dr PO 20 mg DAILY@0630 BRIDGER Administration Ondansetron HCl 4 mg 10/06/20 07:14 Ondansetron Hcl 4 Mg/2 Ml Vial IVPUSH Q8H PRN Nausea and Vomiting Pravastatin Sodium 20 mg 10/06/20 21:00 10/06/20 20:00 Pravastatin Sodium 20 Mg Tablet PO 20 mg BEDTIME BRIDGER Administration Sodium Chloride 3 ml 10/06/20 08:00 10/07/20 07:54 0.9 % Sodium Chloride Flush 3 Ml Syringe IVFLUSH 3 ml QSHIFT [facility] Administration Labs CBC & Chem 7: 10/07/20 05:19 10/07/20 05:19 Microbiology Microbiology Results: Microbiology 10/06/20 03:10 Urine clean catch - Clean Catch Midstream Urine Culture - Fin al Assessment and Plan (1) Acute respiratory failure due to COVID-19: Status: Acute (2) Hyperglycemia: Status: Acute (3) Asthma exacerbation: Status: Acute (4) SARS-CoV-2 positive: Status: Acute (5) UTI (urinary tract infection): Status: Acute Assessment and Plan: 50-year-old female presents to the hospital with complaints of worsening shortness of breath found to have COVID-19 positive acute hypoxic respiratory failure Secondary to COVID-19 infection Wean off oxygen Continue Decadron 6 mg daily Bronchodilator inhalers ATC and p.r.n. Type 2 diabetes with hyperglycemia secondary to uncontrolled diabetes and steroid usage patient has not had her insulin or p.o. antihyperglycemics for several days Increase insulin to 70 units b.i.d. Glipizide Continue monitoring blood sugar levels UTI UA positive, has hesitancy and urgency Continue ceftriaxone follow cultures asthma exacerbation has wheezing, dyspnea, COVID-19 positive start her on steroids, albuterol inhaler p.r.n. and scheduled DVT prophylaxis Heparin subQ
[2020-10-07 16:17] LABS: Glucose, Whole Blood 329 mg/dL (60-115)
[2020-10-07 19:44] LABS: Glucose, Whole Blood 237 mg/dL (60-115)
[2020-10-07] MEDS: Insulin Glargine,Hum.rec.anlog 100 UNIT/ML 10 ML VIAL 70 UNIT SUBCUT (19:52)
[2020-10-07] MEDS: Pravastatin Sodium 20 MG TABLET PO (19:53)
[2020-10-07] MEDS: Docusate Sodium 100 MG CAPSULE PO (20:59)
[2020-10-08] VITALS (7 sets, daily range): BP systolic 113–132; BP diastolic 60–72; PULSE 72–104; RESP 18–20; TEMP 36–37; O2SAT 91–96
[2020-10-08] MEDS: guaiFENesin 100 MG/5 ML LIQUID PO ×5 (01:10→20:46)
[2020-10-08] MEDS: Ibuprofen 600 MG TABLET PO ×2 (01:10→20:47)
[2020-10-08] MEDS: Acetaminophen 325 MG TABLET 650 MG PO ×3 (04:49→23:22)
[2020-10-08] MEDS: Omeprazole 20 MG CAPSULE.DR PO (05:27)
[2020-10-08 06:59] LABS: Hematocrit 38.1 % (37-47); Hemoglobin 12.4 g/dl (12.0-16.0); Mean Corpuscular HGB Conc 32.5 g/dl (31.0-35.0); Mean Corpuscular Hemoglobin 29.8 pg (27.0-33.0); Mean Corpuscular Volume 91.6 fL (80-98); Mean Platelet Volume 9.2 fL (9.4-12.3); Platelet Count 140 X10*3/uL (160-400); Red Blood Count 4.16 X10*6/uL (4.20-5.50); Red Cell Distribution Width 13.5 % (11.0-16.0); White Blood Count 6.2 X10*3/uL (4.8-10.8)
[2020-10-08 07:18] LABS: Glucose, Whole Blood 111 mg/dL (60-115)
[2020-10-08 07:35] LABS: Anion Gap 14 (12-20); Blood Urea Nitrogen 18 mg/dL (9-16); Calcium 8.8 mg/dL (8.4-10.2); Carbon Dioxide 25 mmol/L (22-29); Chloride 101 mmol/L (96-108); Creatinine Clr Calc Pharmacy 118.2; Estimated Glomerular Filt Rate > 60; Glucose Random 117 mg/dL (60-115); Potassium 3.9 mmol/L (3.3-5.1); Sodium 136 mmol/L (135-145)
[2020-10-08] MEDS: 0.9 % Sodium Chloride Flush 3 ML SYRINGE IVFLUSH ×3 (08:01→20:48)
[2020-10-08] MEDS: Aspirin 325 MG TABLET PO (08:01)
[2020-10-08] MEDS: Heparin Sodium,Porcine 5,000 UNIT/ML VIAL 5000 UNIT SUBCUT ×2 (08:01→18:23)
[2020-10-08] MEDS: dexAMETHasone sod phosphate 4 MG/ML VIAL 6 MG IVPUSH (08:01)
[2020-10-08] MEDS: cefTRIAXone sodium 1 GM in 0.9 % Sodium Chloride 50 ML IV (08:01)
[2020-10-08] MEDS: Gabapentin 300 MG CAPSULE PO ×2 (08:02→20:47)
[2020-10-08] MEDS: Loratadine 10 MG TABLET PO (08:02)
[2020-10-08] MEDS: glipiZIDE 5 MG TABLET PO ×2 (08:02→20:47)
[2020-10-08] MEDS: Insulin Glargine,Hum.rec.anlog 100 UNIT/ML 10 ML VIAL 64 UNIT SUBCUT ×2 (08:05→20:46)
--- NOTE | 2020-10-08 09:20 | P.CDIC_ITS ---
CDI Concurrent Query Service Date: 10/08/20 Documentation Clarification: Please clarify if you are treating a proba ble/suspected/likely or confirmed: Body mass index: Morbid obesity Please specify if known Provider Response: Morbid Obesity PLEASE DO NOT DELETE/MODIFY EXISTING CONTENT Additional information is needed in order to code to the highest accuracy and appropriate Severity of Illness (SOI). Please clarify the information noted below in your progress notes and discharge summary. Risk Factors/Clinical Indicators/Treatments Body mass index: 42.1 CDS: Kinza Keen [facility], CDIS Contact Number: [phone] Please Review the information above and exercise your independent professional judgment in responding to the query. If you concur, pleas document in the PROGRESS NOTES and DISCHARGE SUMMARY. If you do not agree with the query, please document in the query above. THIS QUERY IS PART OF THE PERMANENT MEDICAL RECORD
--- NOTE | 2020-10-08 09:25 | MHC.CM.PN ---
Per discussion with Lulu/Karma, Patient is not yet medically cleared for dc (?home O2 eval needed, ? can she have O2 @ the [facility], IV Decadron, IV Ceftriaxone).CM will continue to follow for possible need to adjust the dc plan.
[2020-10-08] MEDS: Fluticasone Propionate Nasal 16 GM SPRAY 1 SPRAY NOSTRIL-B ×2 (10:34→21:43)
[2020-10-08] MEDS: polyethylene glycoL 3350 17 GM POWD.PACK PO (10:35)
[2020-10-08] MEDS: Butalb/Acetamin/Caff 50/325/40 TABLET 1 TAB PO (10:35)
[2020-10-08 11:21] LABS: Glucose, Whole Blood 298 mg/dL (60-115)
[2020-10-08] MEDS: Insulin Lispro 100 UNIT/ML 3 ML VIAL SUBCUT ×3 (11:45→20:47)
--- NOTE | 2020-10-08 12:02 | MHC.SL.SWA ---
Speech Pathologist Impression: Oralpharyngeal Dysphagia Esophageal Dysphagia Dysphasia Diet Status: No Change Liquid Consistency and Strategies for Safe Swallow: Liquid Intake Recommendation: Thin Liquid Intake Strategies: Small Sips Solid Food Consistency: Dietary Recommendations: Regular Additional Modifications to Solid Foods: Patient will self-select food items, avoiding rice and crackers. Oral Medication Intake: Whole with Liquid Compensatory Strategies and Precautions to be Taken for Safe Swallow: Sitting Upright (90 deg) Double Swallow Small Bites and Sips Alternate Liquids/Solids Rate of Ingestion Change Avoid Specific Foods Supervision While Eating and Drinking for Safe Swallow: Intermittent Supervision Foods to Avoid: Avoid tough and sticky foods. Patient self-selects food items and cuts food into small bite size pieces. Swallowing Recommended Treatments: Compens. Strategy Educat. Recommendation for Speech: Inpatient Speech Therapy Modified Barium Swallow Study - Outpatient Comment: Recommend G.I. consult due to complaints of symptoms which are consistent with esophageal dysphagia. Recommend outpatient MBSS if symptoms do not improve. SOURCING ASSISTANT will follow up to ensure tolerance and to provide education RE: aspiration precautions and strategies for esophageal dysphagia (i.e. taking small bites with liquid wash, upright 90 degree position during meals and for at least 30 minutes after meal). Data Typist Clinican/Clinical Fellow: No Supervisory Statement: I have reviewed and agree with the student/clinical fellow's documentation: N/A Speech Language Pathologist: Abby Washington M.A., [facility]-SOURCING ASSISTANT
--- NOTE | 2020-10-08 14:25 | P.PNIM_ITS ---
Subjective Subjective Date of Service: 10/08/20 Interval History: the patient was seen and evaluated this morning Laying in bed, feels comfortable Denies any fever, chills Feels her shortness of breath has improved a little No reported other overnight events. Systemic review: No fever, chills or weakness No chest pain, palpitation Dyspnea on exertion, coughing No abdominal pain, nausea or vomiting Increased frequency No any rash or wounds Physical Exam Vital Signs: Vital Signs: Last Vital Signs Temp 97.9 F 10/08/20 11:22 Pulse 85 10/08/20 11:22 Resp 18 10/08/20 11:22 BP 120/72 10/08/20 11:22 Pulse Ox 96 10/08/20 11:22 Body Mass Index 42.1 Const: Other: Constitutional : Alert, oriented, not in distress Neck : Normal inspection, Supple Cardiovascular : RRR, S1 S2, no lower extremity edema Respiratory : Decreased bilateral air entry, no crackles, no wheezes or rhonchi Gastrointestinal: soft, lax, Normal bowel sounds, Non tender Skin : Warm/Dry, No rash Neurological : Alert & oriented x3, No focal deficit Objective Data Current Medications Generic Name Dose Route Start Last Admin Trade Name Freq PRN Reason Stop Dose Admin Acetaminophen 650 mg 10/06/20 07:14 10/08/20 04:49 Acetaminophen 325 Mg Tablet PO 650 mg Q6H PRN Administration Pain, Mild (Pain Scale 1-3) Albuterol Sulfate 2 puff 10/06/20 19:28 Albuterol Sulfate 90 Mcg 8 Gm Inhaler INHALE RQ4H PRN Shortness of Breath/Wheezing Aspirin 325 mg 10/06/20 09:00 10/08/20 08:01 Aspirin 325 Mg Tablet PO 325 mg DAILY BRIDGER Administration Dexamethasone Sodium Phosphate 6 mg 10/07/20 09:00 10/08/20 08:01 Dexamethasone Sod Phosphate 4 Mg/Ml Vial IVPUSH 6 mg DAILY BRIDGER Administration Docusate Sodium 100 mg 10/06/20 07:14 10/07/20 20:59 Docusate Sodium 100 Mg Capsule PO 100 mg DAILY PRN Administration Constipation Fluticasone Propionate 1 spray 10/08/20 09:50 10/08/20 10:34 Fluticasone Propionate Nasal 16 Gm [place] NOSTRIL-B 1 spray BID BRIDGER Administration Gabapentin 300 mg 10/06/20 09:00 10/08/20 08:02 Gabapentin 300 Mg Capsule PO 300 mg BID BRIDGER Administration Glipizide 5 mg 10/07/20 09:00 10/08/20 08:02 Glipizide 5 Mg Tablet PO 5 mg BID BRIDGER Administration Guaifenesin 5 ml 10/06/20 12:51 10/08/20 11:45 Guaifenesin 100 Mg/5 Ml Liquid PO 5 ml Q4H PRN Administration Cough Heparin Sodium (Porcine) 5,000 unit 10/06/20 07:15 10/08/20 08:01 Heparin Sodium,Porcine 5,000 Unit/Ml Vial SUBCUT 5,000 unit Q12H BRIDGER Administration Ceftriaxone Sodium 1 gm/ 50 mls @ 100 mls/hr 10/06/20 07:45 10/08/20 09:11 Sodium Chloride IV Infused Q24H BRIDGER Infusion Ibuprofen 600 mg 10/06/20 07:14 10/08/20 01:10 Ibuprofen 600 Mg Tablet PO 600 mg Q8H PRN Administration pain Insulin Glargine 64 unit 10/08/20 09:00 10/08/20 08:05 Insulin Glargine,Hum.Rec.Anlog 100 Unit/Ml 10 Ml Vial SUBCUT 64 unit BID BRIDGER Administration Insulin Human Lispro 0 unit 10/06/20 07:30 10/08/20 11:45 Insulin Lispro 100 Unit/Ml 3 Ml Vial SUBCUT 6 unit QIDACHS BRIDGER Administration Protocol Loratadine 10 mg 10/06/20 09:00 10/08/20 08:02 Loratadine 10 Mg Tablet PO 10 mg DAILY BRIDGER Administration Omeprazole 20 mg 10/06/20 09:00 10/08/20 05:27 Omeprazole 20 Mg Capsule.Dr PO 20 mg DAILY@0630 BRIDGER Administration Ondansetron HCl 4 mg 10/06/20 07:14 Ondansetron Hcl 4 Mg/2 Ml Vial IVPUSH Q8H PRN Nausea and Vomiting Polyethylene Glycol 17 gm 10/08/20 09:50 10/08/20 10:35 Polyethylene Glycol 3350 17 Gm Powd.Pack PO 17 gm DAILY BRIDGER Administration Pravastatin Sodium 20 mg 10/06/20 21:00 10/07/20 19:53 Pravastatin Sodium 20 Mg Tablet PO 20 mg BEDTIME BRIDGER Administration Sodium Chloride 3 ml 10/06/20 08:00 10/08/20 08:01 0.9 % Sodium Chloride Flush 3 Ml Syringe IVFLUSH 3 ml QSHIFT BRIDGER Administration Labs CBC & Chem 7: 10/08/20 06:21 10/08/20 06:21 Microbiology Microbiology Results: Microbiology 10/06/20 03:10 Urine clean catch - Clean Catch Midstream Urine Culture - Final Assessment and Plan (1) Acute respiratory failure due to COVID-19: Status: Acute (2) Hyperglycemia: Status: Acute (3) Asthma exacerbation: Status: Acute (4) SARS-CoV-2 positive: Status: Acute (5) UTI (urinary tract infection): Status: Acute Assessment and Plan: 50-year-old female presents to the hospital with complaints of worsening shortness of breath found to have COVID-19 positive acute hypoxic respiratory failure Secondary to COVID-19 infection Wean off oxygen Continue Decadron 6 mg daily Bronchodilator inhalers ATC and p.r.n. To do home O2 evaluation To add cough medications Type 2 diabetes with hyperglycemia Better controlled today secondary to uncontrolled diabetes and steroid usage 64 units of Lantus b.i.d. Continue Glipizide Continue monitoring blood sugar levels UTI UA positive, has hesitancy and urgency Continue ceftriaxone Mixed bacterial kristy and cultures asthma exacerbation has wheezing, dyspnea, COVID-19 positive albuterol inhaler p.r.n. and scheduled morbid obesity Advised about losing weight as it is contributing to her overall condition DVT prophylaxis Heparin subQ
[2020-10-08 16:20] LABS: Glucose, Whole Blood 389 mg/dL (60-115)
--- NOTE | 2020-10-08 18:16 | PC.NURSE ---
Patient [address] Garrison notified. No additional coverage ordered. 10 units sliding scale Insulin given as per EMAR.
[2020-10-08 19:59] LABS: Glucose, Whole Blood 322 mg/dL (60-115)
[2020-10-08] MEDS: Pravastatin Sodium 20 MG TABLET PO (20:47)
[2020-10-09 03:24] VITALS: BP 119/51; PULSE 76; RESP 20; TEMP 36.6; O2SAT 97
[2020-10-09] MEDS: Acetaminophen 325 MG TABLET 650 MG PO (05:33)
[2020-10-09] MEDS: Omeprazole 20 MG CAPSULE.DR PO (05:33)
[2020-10-09] MEDS: guaiFENesin 100 MG/5 ML LIQUID PO ×2 (05:33→10:44)
[2020-10-09 06:17] LABS: Hematocrit 40.1 % (37-47); Hemoglobin 13.2 g/dl (12.0-16.0); Mean Corpuscular HGB Conc 32.9 g/dl (31.0-35.0); Mean Corpuscular Hemoglobin 29.7 pg (27.0-33.0); Mean Corpuscular Volume 90.1 fL (80-98); Platelet Count 146 X10*3/uL (160-400); Red Blood Count 4.45 X10*6/uL (4.20-5.50); Red Cell Distribution Width 13.4 % (11.0-16.0); White Blood Count 4.6 X10*3/uL (4.8-10.8)
[2020-10-09 06:50] LABS: Anion Gap 15 (12-20); Blood Urea Nitrogen 20 mg/dL (9-16); C Reactive Protein 0.97 mg/dL (< or = 0.50); Carbon Dioxide 26 mmol/L (22-29); Chloride 101 mmol/L (96-108); Creatinine Clr Calc Pharmacy 121.7; Estimated Glomerular Filt Rate > 60; Glucose Random 91 mg/dL (60-115); Potassium 3.7 mmol/L (3.3-5.1); Sodium 138 mmol/L (135-145)
[2020-10-09 07:47] LABS: Glucose, Whole Blood 65 mg/dL (60-115)
[2020-10-09] MEDS: cefTRIAXone sodium 1 GM in 0.9 % Sodium Chloride 50 ML IV (07:58)
[2020-10-09] MEDS: Heparin Sodium,Porcine 5,000 UNIT/ML VIAL 5000 UNIT SUBCUT (07:59)
[2020-10-09 08:00] VITALS: BP 99/48; PULSE 82; RESP 19; TEMP 36.7; O2SAT 95
[2020-10-09 08:53] LABS: Lactate Dehydrogenase 187 U/L (122-220)
[2020-10-09 10:07] LABS: Glucose, Whole Blood 120 mg/dL (60-115)
[2020-10-09] MEDS: Loratadine 10 MG TABLET PO (10:11)
[2020-10-09] MEDS: Gabapentin 300 MG CAPSULE PO (10:11)
[2020-10-09] MEDS: glipiZIDE 5 MG TABLET PO (10:11)
[2020-10-09] MEDS: Aspirin 325 MG TABLET PO (10:11)
[2020-10-09] MEDS: Insulin Glargine,Hum.rec.anlog 100 UNIT/ML 10 ML VIAL 64 UNIT SUBCUT (10:11)
[2020-10-09] MEDS: 0.9 % Sodium Chloride Flush 3 ML SYRINGE IVFLUSH (10:12)
[2020-10-09] MEDS: dexAMETHasone sod phosphate 4 MG/ML VIAL 6 MG IVPUSH (10:12)
[2020-10-09] MEDS: polyethylene glycoL 3350 17 GM POWD.PACK PO (10:12)
[2020-10-09] MEDS: Fluticasone Propionate Nasal 16 GM SPRAY 1 SPRAY NOSTRIL-B (10:12)
[2020-10-09] MEDS: Ibuprofen 600 MG TABLET PO (10:44)
[2020-10-09 11:46] LABS: Glucose, Whole Blood 146 mg/dL (60-115)
[2020-10-09 11:55] VITALS: BP 128/67; PULSE 79; RESP 20; TEMP 36.4; O2SAT 94
--- NOTE | 2020-10-09 11:58 | P.DS_ITS ---
DS: Providers Provider Date of Service: 10/09/20 Date of admission: 10/06/20 07:14 Primary care physician: Leti Ballesteros MD DS: Diagnosis Discharge Diagnosis (1) Acute respiratory failure due to COVID-19: Status: Acute (2) Hyperglycemia: Status: Acute (3) Asthma exacerbation: Status: Acute (4) SARS-CoV-2 positive: Status: Acute (5) UTI (urinary tract infection): Status: Acute DS: Medications Discharge Medications Home Medications: Home Medications Medication Instructions Recorded Confirmed aspirin 325 mg tablet 325 mg PO DAILY 06/22/20 10/06/20 cetirizine 10 mg tablet 10 mg PO DAILY 06/22/20 10/06/20 fluticasone propionate 230 2 puff INHALATION BID 06/22/20 10/06/20 mcg-salmeterol 21 mcg/actuation HFA inhaler gabapentin 300 mg capsule 300 mg PO BID 06/22/20 10/06/20 glipizide 5 mg tablet 5 mg PO BID 06/22/20 10/06/20 ibuprofen 600 mg tablet 600 mg PO Q8H PRN 06/22/20 10/06/20 insulin aspart U-100 100 unit/mL SUBCUT 06/22/20 subcutaneous solution insulin glargine 100 unit/mL (3 64 unit SUBCUT BID 06/22/20 10/06/20 mL) subcutaneous pen metformin 1,000 mg tablet 1,000 mg PO BID 06/22/20 10/06/20 omeprazole 20 mg capsule,delayed 20 mg PO BID 06/22/20 10/06/20 release pravastatin 20 mg tablet 20 mg PO DAILY 06/22/20 10/06/20 Previous Rx's Medication Instructions Recorded albuterol sulfate [Ventolin HFA] 2 puff INHALATION Q4-6H PRN #1 ea 03/23/20 cefuroxime axetil 500 mg PO BID #4 tab 10/09/20 dexamethasone 6 mg PO DAILY #5 tab 10/09/20 fluticasone propionate 1 spray INTRANASAL BID 7 Days g 10/09/20 DS: Summary Hospital Course Hospital Course: Admission note HPI 50-year-old woman with past medical history of diabetes, depression, HLD, HTN, presents to the hospital with complaints of worsening shortness of breath. Patient was seen in the ED on 10/01, for asthma exacerbation was given steroids and sent home, returns today stating that her shortness of breath has worsened. She has a cough, some phlegm production, no fever no chills, she has some wheezing, abdominal wall pain with coughing, headache, chest wall pain with coughing, denies any abdominal pain nausea or vomiting. She reports urinary hesitancy, urgency. No lower extremity edema. On arrival to the ED hemodynamically stable with a temperature of 96.7?, heart rate of 103, blood pressure of 147/82, satting 97% on room air although her oxygen did drop mid 70s, was placed on nasal cannula and now satting 94% Labs are significant for WBC count 6.4, hemoglobin of 13.5, glucose on arrival was 649, patient reports that she has not had her insulin, metformin or glipizide for couple of days. Estrace and WBC, COVID-19 positive today. Chest x-ray shows no acute pulmonary findings. Hospital course Patient was admitted to the hospital for acute hypoxic respiratory failure secondary to COVID-19 infection requiring oxygen supplement. Started on oxygen supplement and treated with IV Decadron with initiation of bronchodilators inhalers ATC and p.r.n.. She was weaned off oxygen and was able to ambulate on room maintaining her oxygen level in 90s. Urinalysis shows signs of UTI with reported symptoms. Treated with ceftriaxone. To discharge home on Ceftin for 2 more days to finish total of 5 days. Blood sugar was noticed to be elevated likely secondary to steroid usage. Better controlled with addition of her oral glipizide. To continue home medication and monitor her blood sugar at home. Time Spent with Patient Time attestation: Total time spent providing and/or coordinating discharge services: Discharge coordination time: Greater than 30 minutes Physical Exam Vital Signs: Vital Signs: Last Vital Signs Temp 97.5 F 10/09/20 11:55 Pulse 79 10/09/20 11:55 Resp 20 10/09/20 11:55 BP 128/67 10/09/20 11:55 Pulse Ox 94 10/09/20 11:55 Body Mass Index 42.1 Const: Other: Constitutional : Alert, oriented, not in distress Neck : Normal inspection, Supple Cardiovascular : RRR, S1 S2, no lower extremity edema Respiratory : Decreased bilateral air entry, no crackles, no wheezes or rhonchi Gastrointestinal: soft, lax, Normal bowel sounds, Non tender Skin : Warm/Dry, No rash Neurological : Alert & oriented x3, No focal deficit DS: Data Data Completed and Pending Labs on day of discharge: Laboratory Results - last 24 hr 10/08/20 10/08/20 10/09/20 16:15 19:50 06:02 WBC 4.6 L RBC 4.45 Hgb 13.2 Hct 40.1 MCV 90.1 MCH 29.7 MCHC 32.9 RDW 13.4 Plt Count 146 L MPV 9.0 L Absolute Nucleated RBC 0.000 Nucleated RBC % (auto) 0.0 Sodium Potassium Chloride Carbon Dioxide Anion Gap BUN Creatinine Estim Creat Clear Calc Estimated GFR POC Glucose 389 H* 322 H Random Glucose Calcium Lactate Dehydrogenase C-Reactive Protein 10/09/20 10/09/20 10/09/20 06:02 07:43 10:04 WBC RBC Hgb Hct MCV MCH MCHC RDW Plt Count MPV Absolute Nucleated RBC Nucleated RBC % (auto) Sodium 138 Potassium 3.7 Chloride 101 Carbon Dioxide 26 Anion Gap 15 BUN 20 H Creatinine 0.66 Estim Creat Clear Calc 121.7 Estimated GFR > 60 POC Glucose 65 120 H Random Glucose 91 Calcium 9.0 Lactate Dehydrogenase 187 C-Reactive Protein 0.97 H 10/09/20 11:14 WBC RBC Hgb Hct MCV MCH MCHC RDW Plt Count MPV Absolute Nucleated RBC Nucleated RBC % (auto) Sodium Potassium Chloride Carbon Dioxide Anion Gap BUN Creatinine Estim Creat Clear Calc Estimated GFR POC Glucose 146 H Random Glucose Calcium Lactate Dehydrogenase C-Reactive Protein Discharge Plan Discharge Patient Disposition: Home, Self-Care Discharge Diagnosis: COVID-19 infection Referrals: Leti Ballesteros MD [Primary Care Provider] - 1 Week Discharge Medications: New fluticasone propionate 50 mcg/actuation [place],Suspension 1 spray intranasal BID 7 Days RF: 0 dexamethasone 6 mg tablet 6 mg PO DAILY Qty: 5 RF: 0 cefuroxime axetil 500 mg tablet 500 mg PO BID Qty: 4 RF: 0 Continued albuterol sulfate [Ventolin HFA] 90 mcg/actuation HFA aerosol inhaler 2 puff inhalation Q4-6H PRN (Reason: shortness of breath or wheezing) Qty: 1 RF: 0 insulin aspart U-100 100 unit/mL solution subcut RF: 0 omeprazole 20 mg capsule,delayed release(DR/EC) 20 mg PO BID RF: 0 metformin 1,000 mg tablet 1,000 mg PO BID RF: 0 gabapentin 300 mg capsule 300 mg PO BID RF: 0 glipizide 5 mg tablet 5 mg PO BID RF: 0 aspirin 325 mg tablet 325 mg PO DAILY RF: 0 ibuprofen 600 mg tablet 600 mg PO Q8H PRN (Reason: pain) RF: 0 cetirizine 10 mg tablet 10 mg PO DAILY RF: 0 insulin glargine 100 unit/mL (3 mL) insulin pen 64 unit subcut BID RF: 0 fluticasone propion-salmeterol 230-21 mcg/actuation HFA aerosol inhaler 2 puff inhalation BID RF: 0 pravastatin 20 mg tablet 20 mg PO DAILY RF: 0 Discharge Orders: Discharge Order (Routine); Ordered 10/09/20 Ordered By: Megan Garrison Diet: advance to usual diet Activity on Discharge: As tolerated Stand Alone Forms: Patient Portal Discharge page Care Plan Goals: Read below Health Concerns: Read below the Plan of Treatment: You were admitted to the hospital for treatment of COVID-19 infection requiring oxygen supplement. Your treated with IV steroids and oxygen supplement that was weaned down over the course of your hospital stay. You were noticed to have urine infection treated with IV antibiotics as well. Assessment: Continue Ceftin for 2 more days Continue dexamethasone for 5 more days
[2020-10-09] MEDS: Butalb/Acetamin/Caff 50/325/40 TABLET 1 TAB PO (12:04)
--- NOTE | 2020-10-09 12:06 | MHC.CM.PN ---
DISCHARGE Female 50 DX Covid+. She is discharged to home, [facility] skilled nursing/motel room. She does not need assist with transportation.
[2020-10-09 13:00] LABS: Glucose, Whole Blood 179 mg/dL (60-115)
== END 2020-10-09 13:15 | disposition home or self-care (01) | DRG 177 ==
LOC: HO.ED 05:23 → HO.EDOVER 07:59 → HO.IMC 18:11
PROVIDERS: Admitting Provider Internal Medicine; Emergency Provider Student in an Organized Health Care Education/Training Program; PCP Internal Medicine; Visit Provider Student in an Organized Health Care Education/Training Program
DX: U07.1 COVID-19 (principal); J96.01 Acute respiratory failure with hypoxia; Z68.41 Body mass index [BMI] 40.0-44.9, adult; N39.0 Urinary tract infection, site not specified; J45.901 Unspecified asthma with (acute) exacerbation; F32.9 Major depressive disorder, single episode, unspecified; E11.65 Type 2 diabetes mellitus with hyperglycemia; Z87.891 Personal history of nicotine dependence; E66.01 Morbid (severe) obesity due to excess calories; Z88.5 Allergy status to narcotic agent; Z88.6 Allergy status to analgesic agent; Z79.1 Long term (current) use of non-steroidal anti-inflammatories (NSAID); Z79.4 Long term (current) use of insulin; Z79.51 Long term (current) use of inhaled steroids; Z79.82 Long term (current) use of aspirin; Z79.899 Other long term (current) drug therapy
CPT/HCPCS: 36415; 71045; 80048; 80053; 81001; 81003; 82009; 82947; 83615; 83690; 85025; 85027; 86140; 87086; 87635; 92610; 93005; 96372; 96374; 99285; J0696; J1100; J2930

== ENCOUNTER 2020-10-13 16:37 | Inpatient (IN) | payer OTHER, SELFPAY ==
--- NOTE | ~2020-10-13 | CT_ITS ---
EXAMINATION: CT ABDOMEN AND PELVIS WITHOUT CONTRAST CLINICAL INFORMATION: Abdominal pain COMPARISON: 01/24/2015 TECHNIQUE: Multidetector volumetric imaging was performed from the superior aspect of the liver through the pubic symphysis. Sagittal and coronal reformatted images were obtained on the technologist's workstation. This CT examination was performed using dose optimization techniques as appropriate, variously including the following: *Automated exposure control *Adjustment of mA and/or kV according to patient size (this includes techniques or standardized protocols for targeted exams where dose is matched to indication/reason for exam; i.e. extremities or head) *Use of iterative reconstruction technique DLP: 928 mGy-cm FINDINGS: LUNG BASES: Subpleural reticulation with groundglass opacity at both lung bases. The visualized cardiac structures are unremarkable. LIVER, GALLBLADDER, AND BILIARY TREE: The liver is normal in size, shape, and attenuation. No focal hepatic lesion or biliary ductal dilatation is present. Cholecystectomy. PANCREAS: Unremarkable. SPLEEN: Unremarkable. ADRENAL GLANDS: Unremarkable. KIDNEYS AND URETERS: The kidneys are normal in size, shape, and attenuation. No hydronephrosis, hydroureter, or calculi seen. No perinephric stranding. BLADDER: Unremarkable. GASTROINTESTINAL TRACT: The stomach is unremarkable. Normal caliber small bowel. No obstruction. No colonic wall thickening or acute inflammatory change. No free air or free fluid. ABDOMINAL WALL: Prior abdominal wall hernia repair to the left of midline. Small fat-containing umbilical hernia is unchanged. LYMPH NODES: Normal. VASCULAR: Normal caliber aorta with mild atherosclerotic calcification. PELVIC VISCERA: The uterus and adnexa are unremarkable. OSSEOUS STRUCTURES: No acute or suspicious osseous abnormality. CT/CT abdomen pelvis wo con IMPRESSION: No acute or suspicious findings within the abdomen or pelvis. No inflammatory changes. No bowel obstruction. Similar appearance of the lung bases when compared to prior CT of the chest. These are likely associated with the patient's clinical history of Covid.
--- NOTE | ~2020-10-13 | CT_ITS ---
EXAMINATION: CT ANGIOGRAM OF THE CHEST WITH AND WITHOUT CONTRAST (CT PULMONARY ANGIOGRAM FOR PE) CLINICAL INFORMATION: Reason for Exam chest pain COVID positive COMPARISON: CT angiogram chest 10/01/2020 as well as chest radiograph earlier today TECHNIQUE: Prior to contrast administration, noncontrast localization images were obtained. Subsequently, multidetector volumetric imaging was performed from the thoracic inlet to below the diaphragms following the administration of 71 mL Omnipaque 350 intravenous contrast. No contrast reaction reported Sagittal, coronal, and MIP oblique sagittal reformatted images were obtained on the CT workstation, uploaded to PACS, and reviewed. This CT examination was performed using dose optimization techniques as appropriate, variously including the following: *Automated exposure control *Adjustment of mA and/or kV according to patient size (this includes techniques or standardized protocols for targeted exams where dose is matched to indication/reason for exam; i.e. extremities or head) *Use of iterative reconstruction technique Total exam dose-length product 502 mGy-cm FINDINGS: QUALITY OF STUDY/CONTRAST BOLUS: The bolus is satisfactory but there is marked motion artifact presumably from respiration. PULMONARY ARTERIES: No central or large segmental pulmonary emboli. THORACIC AORTA: No aneurysm or dissection. LUNG: Since the prior study, multifocal peripheral infiltrates have developed characteristic of Covid 19. PLEURA: No pleural effusion or pneumothorax. MEDIASTINUM: Normal heart size. No pericardial effusion. There are small mediastinal lymph nodes present with some prominent hilar lymph nodes present as well all of which are probably reactive.. No evidence of septal bowing or right heart strain. CHEST WALL/AXILLA: No axillary or internal mammary lymphadenopathy. OSSEOUS STRUCTURES: No acute or suspicious osseous abnormality. UPPER ABDOMEN: There is probable hepatic steatosis. No reflux of contrast into the hepatic veins to suggest elevated right heart pressures. CT/CT angio chest PE protocol IMPRESSION: Limited exam but no evidence of large pulmonary emboli. Commonly reported imaging features of Covid 19 or viral pneumonia are again seen is diffuse multifocal infiltrates. These were not present on the CT scan from 10/01/2020 but were seen on the chest x-ray earlier today.. Other processes such as influenza pneumonia or organizing pneumonia, as can be seen with drug toxicity and connective tissue disease, can cause a similar imaging pattern. VTE: Negative but limited
--- NOTE | ~2020-10-13 | XR_ITS ---
EXAMINATION: XR CHEST CLINICAL INFORMATION: Dyspnea COMPARISON: 10/06/2020 TECHNIQUE: Frontal view of the chest was obtained. FINDINGS: Multifocal ill-defined patchy densities are seen in the lungs worrisome for groundglass infiltrates. These findings are new when compared to the prior study. The heart size is normal. No effusions are seen. XR/XR chest 1V IMPRESSION: Commonly reported imaging features of Covid 19 or viral pneumonia are present with ill-defined patchy infiltrates bilaterally. Other processes such as influenza pneumonia or organizing pneumonia, as can be seen with drug toxicity and connective tissue disease, can cause a similar imaging pattern.
--- NOTE | 2020-10-13 16:50 | ECG_ITS ---
Test Reason : SHORTNESS OF BREATH Blood Pressure : / mmHG Vent. Rate : 097 BPM Atrial Rate : 097 BPM P-R Int : 166 ms QRS Dur : 088 ms QT Int : 366 ms P-R-T Axes : 016 017 032 degrees QTc Int : 464 ms Normal sinus rhythm Normal ECG When compared with ECG of 06-OCT-2020 03:31, Minimal criteria for Inferior infarct are no longer Present Referred By: Matilda Amor Electronically Signed By:CYNTHIA REN MD
--- NOTE | 2020-10-13 16:52 | ED.ASTHMA ---
HPI - Asthma General Chief Complaint: Dyspnea Stated Complaint: diff breathing, covid + Time Seen by Provider: 10/13/20 16:42 Source: patient, EMS and old records reviewed Mode of arrival: EMS Limitations: no limitations History of Present Illness HPI Narrative: 50 yo female with recent admit 10/06 to 10/09 for asthma, UTI, COVID +, started on nebs, IV dexa, sent home with ceftin, comes back c/o wheezing and dyspnea came back last night still has nausea and diarrhea - states she is at a motel trying to find a place to live and is exposed to smoke from other tenants, she was found by EMS to have sat 91% given duoneb up to 98%, given IV steroids 125mg solumedrol complaint: asthma attack and shortness of breath Onset (ago): day(s) (last night) Severity: severe and similar to prior Context: recent URI and smoke exposure Associated symptoms: dry cough and fever Asthma History: childhood onset and history of frequent attacks Treatments Prior to Arrival: inhaled bronchodilator and IV steroid Related Data Home Medications Medication Instructions Recorded Confirmed aspirin 325 mg tablet 325 mg PO DAILY 06/22/20 10/06/20 cetirizine 10 mg tablet 10 mg PO DAILY 06/22/20 10/06/20 fluticasone propionate 230 2 puff INHALATION BID 06/22/20 10/06/20 mcg-salmeterol 21 mcg/actuation HFA inhaler gabapentin 300 mg capsule 300 mg PO BID 06/22/20 10/06/20 glipizide 5 mg tablet 5 mg PO BID 06/22/20 10/06/20 ibuprofen 600 mg tablet 600 mg PO Q8H PRN 06/22/20 10/06/20 insulin aspart U-100 100 unit/mL SUBCUT 06/22/20 subcutaneous solution insulin glargine 100 unit/mL (3 64 unit SUBCUT BID 06/22/20 10/06/20 mL) subcutaneous pen metformin 1,000 mg tablet 1,000 mg PO BID 06/22/20 10/06/20 omeprazole 20 mg capsule,delayed 20 mg PO BID 06/22/20 10/06/20 release pravastatin 20 mg tablet 20 mg PO DAILY 06/22/20 10/06/20 Previous Rx's Medication Instructions Recorded albuterol sulfate [Ventolin HFA] 2 puff INHALATION Q4-6H PRN #1 ea 03/23/20 cefuroxime axetil 500 mg PO BID #4 tab 10/09/20 dexamethasone 6 mg PO DAILY #5 tab 10/09/20 fluticasone propionate 1 spray INTRANASAL BID 7 Days g 10/09/20 Allergies Allergy/AdvReac Type Severity Reaction Status Date / Time adhesive tape [ADHESIVE TAPE] Allergy Intermediate BLISTERS Verified 03/17/20 17:31 tramadol [TRAMADOL] Allergy Intermediate NAUSEA & Verified 03/17/20 17:31 VOMITING, vomiting acetaminophen [Percocet] Allergy Unknown Unknown Verified 03/17/20 17:31 oxycodone [OXYCODONE] AdvReac Unknown ITCHING Verified 03/17/20 17:31 Adhesive tape Allergy Unknown Unknown Uncoded 03/17/20 17:31 adhesive tape Allergy Unknown Unknown Uncoded 03/17/20 17:31 Review of Systems Review of Systems: Constitutional : pos Fever, No Chills ENT/Mouth : No Hoarseness, pos sore throat, No Rhinorrhea Eyes: No Redness, No Discharge, No Vision Changes Cardiovascular : No Chest Pain, positive SOB, positive Dyspnea on Exertion, No Edema Respiratory : positive Cough, No Sputum, positive Wheezing, Gastrointestinal : pos Nausea, No Vomiting, pos Diarrhea, No abdominal Pain Genitourinary : No Dysuria, No Hematuria Musculoskeletal : No joint pain, No Myalgias Skin : No rash Neuro : pos Weakness, No Numbness, No Headache Psych : No anxiety, depression Heme/Lymph: No Bruising, No Bleeding Endocrine : No Polyuria, No Polydipsia All other systems reviewed and are negative PMFSH Past Medical History Attestation statement: The following information was validated with the patient. Medical History Asthma delivery delivered Cholecystectomy planned Depression Diabetes Hernia of abdominal wall High cholesterol HTN (hypertension) Tachycardia Surgical History H/O foot surgery Social History Social History Household Members: Children and Other Housing: Homeless Alcohol intake: never Smoking Status: Never smoker Second Hand Smoke Exposure: No Use of substances other than those prescribed or required for medical reasons: No Advance Directives: No Advance Directives Information Provided: No service: No Current occupational status: unemployed Physical Exam Vital Signs: Vital Signs: Last Vital Signs Temp 98.5 F 10/13/20 17:07 Pulse 93 10/13/20 20:33 Resp 24 H 10/13/20 20:33 BP 137/70 10/13/20 20:33 Pulse Ox 95 10/13/20 20:33 Body Mass Index 45.8 Appearance: Alert. Oriented X3. No acute distress. Eyes: Pupils equal, round and reactive to light. ENT: Pharynx normal. Neck: Normal inspection. Neck supple. CVS: Normal heart rate and rhythm. Pulses normal. Respiratory: No respiratory distress. Breath sounds decreased throughout Abdomen: Soft and non-tender. Skin: Skin warm and dry. Normal skin color. Normal skin turgor. Extremities: No lower extremity edema. No calf ttp Neuro: Oriented X 3. No motor deficit. No sensory deficit. Course Course Course Narrative: desaturates to 88% on RA up to 95% on 2L NC stable on supp 2 to 3L NC, there really is nothing new she is almost 10 days out from the start of her illness - she really needs O2 at home, neb machine will refer to CM in the AM I do not think another inpatient stay will benefit her Patient placed in physician observation at 858pm. The indication for observation is that the patient needs more time to see if their improves or they will need to be admitted vs sent to STR At this time the patient is well developed well nourished, lungs diminished, CV RRR, abd nontender, neuro is intact. MDM - Asthma MDM Narrative Medical decision making narrative: 50 yo female with asthma just had COVID 10/06-10/09 treated with dexamethasone - comes in c/o feeling sick still c/o wheezing did respond to nebs, is exposed to smoke at the motel - at this time she has no chest pain will need COVID labs, CXR, she did not report chest pain to me but told RN she has some discomfort will need ddimer given recent COVID dx, if the patient improves may need case management consult given she does not have neb machine at home - may qualify for rehab if she does not need admission Lab Data Result diagrams: 10/13/20 17:32 10/13/20 17:32 Labs: Lab Results 10/13/20 10/13/20 10/13/20 Range/Units 17:32 17:32 17:32 WBC 6.6 (4.8-10.8) X10*3/uL RBC 4.37 (4.20-5.50) X10*6/uL Hgb 13.0 (12.0-16.0) g/dl Hct 40.0 (37-47) % MCV 91.5 (80-98) fL MCH 29.7 (27.0-33.0) pg MCHC 32.5 (31.0-35.0) g/dl RDW 13.9 (11.0-16.0) % Plt Count 123 L (160-400) X10*3/uL MPV 9.3 L (9.4-12.3) fL Immature Gran % (Auto) 0.9 H (0.0-0.4) % Neut % (Auto) 67.4 (45-73) % Lymph % (Auto) 27.9 (20-40) % Petroleum % (Auto) 3.3 (2-11) % Eos % (Auto) 0.3 (0-4) % Baso % (Auto) 0.2 (0-2) % Lymph # (Auto) 1.8 (1.2-4.9) X10*3/uL Petroleum # (Auto) 0.2 (0.1-1.2) X10*3/uL Eos # (Auto) 0.0 (0.0-0.4) X10*3/uL Baso # (Auto) 0.0 (0.0-0.2) X10*3/uL Abs Immat Gran (auto) 0.06 H (0.00-0.03) X10*3/uL Absolute Neuts (auto) 4.4 (2.0-8.3) X10*3/uL Absolute Nucleated RBC 0.000 (0.0-0.012) X10*3/uL Nucleated RBC % (auto) 0.0 (0.0-0.2) /100WBC PT (10.8-13.0) SEC INR (0.9-1.1) APTT (24.1-38.0) SEC D-Dimer NG/ML Sodium 140 (135-145) mmol/L Potassium 4.0 (3.3-5.1) mmol/L Chloride 99 (96-108) mmol/L Carbon Dioxide 28 (22-29) mmol/L Anion Gap 17 (12-20) BUN 22 H (9-16) mg/dL Creatinine 0.73 (0.5-1.4) mg/dL Estim Creat Clear Calc 111.6 Estimated GFR > 60 Random Glucose 156 H D (60-115) mg/dL Calcium 7.9 L D (8.4-10.2) mg/dL Magnesium 1.6 (1.6-2.6) mg/dL Ferritin 156 (10-250) ng/mL Total Bilirubin 0.8 (0.0-1.0) mg/dL Direct Bilirubin 0.3 (0.0-0.5) mg/dL AST 50 H D (5-31) U/L ALT 61 H (0-31) U/L Alkaline Phosphatase 198 H D (39-117) U/L Lactate Dehydrogenase 221 H (122-220) U/L Total Protein 5.8 L (6.5-8.0) g/dL Albumin 3.4 L (3.5-5.0) g/dL Lipase 19 (8-78) U/L Procalcitonin ng/mL COVID-19 ([facility]) Positive A (Negative) COVID-19 Clin Com See Note 10/13/20 10/13/20 10/13/20 Range/Units 17:32 17:32 17:32 WBC (4.8-10.8) X10*3/uL RBC (4.20-5.50) X10*6/uL Hgb (12.0-16.0) g/dl Hct (37-47) % MCV (80-98) fL MCH (27.0-33.0) pg MCHC (31.0-35.0) g/dl RDW (11.0-16.0) % Plt Count (160-400) X10*3/uL MPV (9.4-12.3) fL Immature Gran % (Auto) (0.0-0.4) % Neut % (Auto) (45-73) % Lymph % (Auto) (20-40) % Petroleum % (Auto) (2-11) % Eos % (Auto) (0-4) % Baso % (Auto) (0-2) % Lymph # (Auto) (1.2-4.9) X10*3/uL Petroleum # (Auto) (0.1-1.2) X10*3/uL Eos # (Auto) (0.0-0.4) X10*3/uL Baso # (Auto) (0.0-0.2) X10*3/uL Abs Immat Gran (auto) (0.00-0.03) X10*3/uL Absolute Neuts (auto) (2.0-8.3) X10*3/uL Absolute Nucleated RBC (0.0-0.012) X10*3/uL Nucleated RBC % (auto) (0.0-0.2) /100WBC PT 12.2 (10.8-13.0) SEC INR 1.0 (0.9-1.1) APTT 33.2 (24.1-38.0) SEC D-Dimer 335 NG/ML Sodium (135-145) mmol/L Potassium (3.3-5.1) mmol/L Chloride (96-108) mmol/L Carbon Dioxide (22-29) mmol/L Anion Gap (12-20) BUN (9-16) mg/dL Creatinine (0.5-1.4) mg/dL Estim Creat Clear Calc Estimated GFR Random Glucose (60-115) mg/dL Calcium (8.4-10.2) mg/dL Magnesium (1.6-2.6) mg/dL Ferritin (10-250) ng/mL Total Bilirubin (0.0-1.0) mg/dL Direct Bilirubin (0.0-0.5) mg/dL AST (5-31) U/L ALT (0-31) U/L Alkaline Phosphatase (39-117) U/L Lactate Dehydrogenase (122-220) U/L Total Protein (6.5-8.0) g/dL Albumin (3.5-5.0) g/dL Lipase (8-78) U/L Procalcitonin 0.09 ng/mL COVID-19 ([facility]) (Negative) COVID-19 Clin Com ECG Data Attestation: I personally reviewed and interpreted this ECG as follows: ECG interpretation date: 10/13/20 ECG interpretation time: 17:06 Interpretation: Rate: 97 Rhythm: NSR [place]: normal Normal P waves. Normal OBIE. Normal QRS complex. ST T wave : normal, no ABIODUN qTC: normal prior studies: no acute ischemia The study has been interpreted contemporaneously by me. . Discharge Plan Discharge Clinical Impression: Pneumonia due to Asthma Qualifiers: Asthma severity: moderate Asthma persistence: persistent Asthma complication type: with acute exacerbation Qualified Code(s): J45.41 - Moderate persistent asthma with (acute) exacerbation Prescriptions: No Action albuterol sulfate [Ventolin HFA] 90 mcg/actuation HFA aerosol inhaler 2 puff inhalation Q4-6H PRN (Reason: shortness of breath or wheezing) Qty: 1 RF: 0 fluticasone propionate 50 mcg/actuation [place],Suspension 1 spray intranasal BID 7 Days RF: 0 dexamethasone 6 mg tablet 6 mg PO DAILY Qty: 5 RF: 0 cefuroxime axetil 500 mg tablet 500 mg PO BID Qty: 4 RF: 0 insulin aspart U-100 100 unit/mL solution subcut RF: 0 omeprazole 20 mg capsule,delayed release(DR/EC) 20 mg PO BID RF: 0 metformin 1,000 mg tablet 1,000 mg PO BID RF: 0 gabapentin 300 mg capsule 300 mg PO BID RF: 0 glipizide 5 mg tablet 5 mg PO BID RF: 0 aspirin 325 mg tablet 325 mg PO DAILY RF: 0 ibuprofen 600 mg tablet 600 mg PO Q8H PRN (Reason: pain) RF: 0 cetirizine 10 mg tablet 10 mg PO DAILY RF: 0 insulin glargine 100 unit/mL (3 mL) insulin pen 64 unit subcut BID RF: 0 fluticasone propion-salmeterol 230-21 mcg/actuation HFA aerosol inhaler 2 puff inhalation BID RF: 0 pravastatin 20 mg tablet 20 mg PO DAILY RF: 0
[2020-10-13 16:57] VITALS: BP 117/52; PULSE 95; RESP 20; O2SAT 88; BMI 45.8
[2020-10-13] MEDS: Albuterol Sulfate (0.083%) 2.5 MG/3 ML VIAL.NEB 5 MG INHALE (17:04)
[2020-10-13 17:05] VITALS: PULSE 93; O2SAT 88
[2020-10-13 17:07] VITALS: TEMP 36.9
[2020-10-13 17:41] LABS: Basophils Percent Auto 0.2 % (0-2); Eosinophils Percent Auto 0.3 % (0-4); PLT CLUMP 1; SCAN SMEAR FLAG 1
[2020-10-13 17:43] LABS: Imm Gran Abs Auto 0.06 X10*3/uL (0.00-0.03); Imm Gran Pct Auto 0.9 % (0.0-0.4); Lymphocytes Absolute Auto 1.8 X10*3/uL (1.2-4.9); Lymphocytes Percent Auto 27.9 % (20-40); Mean Corpuscular HGB Conc 32.5 g/dl (31.0-35.0); Mean Corpuscular Hemoglobin 29.7 pg (27.0-33.0); Mean Corpuscular Volume 91.5 fL (80-98); Mean Platelet Volume 9.3 fL (9.4-12.3); Monocytes Absolute Auto 0.2 X10*3/uL (0.1-1.2); Monocytes Percent Auto 3.3 % (2-11); Neutrophils Absolute Auto 4.4 X10*3/uL (2.0-8.3); Neutrophils Percent Auto 67.4 % (45-73); Platelet Count 123 X10*3/uL (160-400); Red Blood Count 4.37 X10*6/uL (4.20-5.50); Red Cell Distribution Width 13.9 % (11.0-16.0); White Blood Count 6.6 X10*3/uL (4.8-10.8)
[2020-10-13 17:46] LABS: MANUAL DIFF FLAG NO
[2020-10-13 17:50] LABS: Prothrombin Time 12.2 SEC (10.8-13.0)
[2020-10-13 17:52] LABS: COVID-19 Test Positive (Negative)
[2020-10-13 17:53] LABS: D Dimer 335 NG/ML; Partial Thromboplastin Time 33.2 SEC (24.1-38.0)
[2020-10-13 18:03] LABS: Alanine Aminotransferase 61 U/L (0-31); Albumin Level 3.4 g/dL (3.5-5.0); Alkaline Phosphatase 198 U/L (39-117); Anion Gap 17 (12-20); Aspartate Amino Transferase 50 U/L (5-31); Bilirubin Direct 0.3 mg/dL (0.0-0.5); Bilirubin Total 0.8 mg/dL (0.0-1.0); Blood Urea Nitrogen 22 mg/dL (9-16); Calcium 7.9 mg/dL (8.4-10.2); Carbon Dioxide 28 mmol/L (22-29); Chloride 99 mmol/L (96-108); Creatinine Clr Calc Pharmacy 111.6; Estimated Glomerular Filt Rate > 60; Glucose Random 156 mg/dL (60-115); Lactate Dehydrogenase 221 U/L (122-220); Lipase 19 U/L (8-78); Magnesium 1.6 mg/dL (1.6-2.6); Sodium 140 mmol/L (135-145); Total Protein 5.8 g/dL (6.5-8.0)
[2020-10-13 18:23] LABS: Ferritin 156 ng/mL (10-250)
[2020-10-13 18:24] LABS: Procalcitonin 0.09 ng/mL
[2020-10-13] MEDS: iohexoL 350 MG/ML 100 ML INFUS..BTL IV (19:54)
[2020-10-13 20:33] VITALS: BP 137/70; PULSE 93; RESP 24; O2SAT 95
[2020-10-13] MEDS: Ibuprofen 600 MG TABLET PO (21:30)
[2020-10-13] MEDS: Acetaminophen 325 MG TABLET 650 MG PO (21:30)
--- NOTE | 2020-10-13 21:38 | PC.NURSE ---
PT AMBULATED TO BR W/ EVEN STEADY GAIT USING CANE
[2020-10-14] MEDS: Ibuprofen 600 MG TABLET PO ×2 (04:02→22:44)
[2020-10-14 07:55] LABS: Glucose, Whole Blood 417 mg/dL (60-115)
[2020-10-14 08:42] VITALS: O2SAT 84
[2020-10-14] MEDS: Gabapentin 300 MG CAPSULE PO ×2 (09:30→22:44)
[2020-10-14] MEDS: predniSONE 20 MG TABLET 40 MG PO (09:30)
[2020-10-14] MEDS: Loratadine 10 MG TABLET PO (09:30)
[2020-10-14] MEDS: Insulin Lispro 100 UNIT/ML 3 ML VIAL SUBCUT ×3 (09:31→22:45)
--- NOTE | 2020-10-14 10:38 | PM.IMHP ---
History of Present Illness Date of Service: 10/14/20 Chief Complaint: sob 50F presnted with sob. patient has had symptoms since several days before first ED visit 10/01/20, when she tested negative for covid, she then presented 10/06/20 and tested positive. she was hypoxic at that time and treated with steroids. on 10/09/20 she was feeling much better and able to ambulate on room air, so was discharged home. patient did feel better at home for a couple of days, but then started having shortness of breath again so she returned to ED where she was found to be hypoxic to 84% on room air. patient denies fever, chills, chest pain. Review of Systems Review of Systems: Constitutional: Denies fever, denies Chills Eyes: denies blurry vision ENT: denies sore throat CVS: denies chest pain Respiratory: dyspnea GI: no abdominal pain : denies dysuria MSK: denies neck pain Skin: denies rash Neuro: denies specific motor weakness Psych: denies suicidal ideation Endocrine: denies heat/cold intoleratnce Hematologic: denies easy bleeding Allergy: denies hives [facility] Medical History Asthma delivery delivered Cholecystectomy planned Depression Diabetes Hernia of abdominal wall High cholesterol HTN (hypertension) Tachycardia Family history: reviewed and not pertinent Surgical History H/O foot surgery Social History Household Members: Children and Other Housing: Homeless Alcohol intake: never Smoking Status: Never smoker Second Hand Smoke Exposure: No Use of substances other than those prescribed or required for medical reasons: No Advance Directives: No Advance Directives Information Provided: No service: No Current occupational status: unemployed Meds Allergies Allergy/AdvReac Type Severity Reaction Status Date / Time adhesive tape [ADHESIVE TAPE] Allergy Intermediate BLISTERS Verified 03/17/20 17:31 tramadol [TRAMADOL] Allergy Intermediate NAUSEA & Verified 03/17/20 17:31 VOMITING, vomiting acetaminophen [Percocet] Allergy Unknown Unknown Verified 03/17/20 17:31 oxycodone [OXYCODONE] AdvReac Unknown ITCHING Verified 03/17/20 17:31 Adhesive tape Allergy Unknown Unknown Uncoded 03/17/20 17:31 adhesive tape Allergy Unknown Unknown Uncoded 03/17/20 17:31 Active Medications: Current Medications Generic Name Dose Route Start Last Admin Trade Name [place] PRN Reason Stop Dose Admin Albuterol Sulfate 2.5 mg 10/13/20 20:54 Albuterol Sulfate (0.083%) 2.5 Mg/3 Ml Vial.Neb INHALE RQ4H PRN Wheezing Albuterol Sulfate 2 puff 10/14/20 08:05 Albuterol Sulfate 90 Mcg 8 Gm Inhaler INHALE Q4H PRN shortness of breath or wheezing Gabapentin 300 mg 10/14/20 09:00 10/14/20 09:30 Gabapentin 300 Mg Capsule PO 300 mg BID [facility] Administration Insulin Human Lispro 0 unit 10/14/20 11:30 10/14/20 09:31 Insulin Lispro 100 Unit/Ml 3 Ml Vial SUBCUT 10 unit QIDACHS [facility] Administration Protocol Loratadine 10 mg 10/14/20 09:00 10/14/20 09:30 Loratadine 10 Mg Tablet PO 10 mg DAILY [facility] Administration Metformin HCl 1,000 mg 10/14/20 09:00 10/14/20 09:30 Metformin Hcl 1,000 Mg Tablet PO Not Given BID [facility] Omeprazole 20 mg 10/14/20 16:30 Omeprazole 20 Mg Capsule.Dr CHAVES BID@[id number] [facility] Pharmacy Consult 1 each 10/13/20 16:50 Consult Rx Perform Med Rec MISCELLANE ONCE PRN Consult order Pravastatin Sodium 20 mg 10/14/20 21:00 Pravastatin Sodium 20 Mg Tablet PO BEDTIME [facility] Prednisone 40 mg 10/14/20 09:00 10/14/20 09:30 Prednisone 20 Mg Tablet PO 40 mg DAILY [facility] Administration Home Medications Medication Instructions Recorded Confirmed Last Taken Type aspirin 325 mg tablet 325 mg PO DAILY 06/22/20 10/06/20 10/03/20 History cetirizine 10 mg tablet 10 mg PO DAILY 06/22/20 10/14/20 10/05/20 08:00 History fluticasone propionate 230 2 puff INHALATION BID 06/22/20 10/06/20 10/05/20 22:30 History mcg-salmeterol 21 mcg/actuation HFA inhaler gabapentin 300 mg capsule 300 mg PO BID 06/22/20 10/14/20 10/05/20 22:30 History glipizide 5 mg tablet 5 mg PO BID 06/22/20 10/06/20 10/05/20 17:00 History ibuprofen 600 mg tablet 600 mg PO Q8H PRN 06/22/20 10/06/20 10/04/20 History insulin aspart U-100 100 unit/mL See Rx Instructions .ROUTE .COMPLEX 06/22/20 10/14/20 Unknown History subcutaneous solution insulin glargine 100 unit/mL (3 64 unit SUBCUT BID 06/22/20 10/06/20 10/05/20 22:30 History mL) subcutaneous pen metformin 1,000 mg tablet 1,000 mg PO BID 06/22/20 10/14/20 10/04/20 History omeprazole 20 mg capsule,delayed 20 mg PO BID 06/22/20 10/14/20 10/05/20 22:30 History release pravastatin 20 mg tablet 20 mg PO DAILY 06/22/20 10/14/20 10/05/20 17:00 History Physical Exam Vital Signs and Narrative: Vital Signs: Last Vital Signs Temp 98.5 F 10/13/20 17:07 Pulse 93 10/13/20 20:33 Resp 24 H 10/13/20 20:33 BP 137/70 10/13/20 20:33 Pulse Ox 84 L 10/14/20 08:42 Body Mass Index 45.8 General: no acute distress at rest, gets severely dyspneic on ambulation HEENT: atraumatic Neck: normal to visual inspection CVS: S1, S2, RRR Resp: crackles, diminished Chest: non tender GI: soft, non tender, non distended : no CVA tenderness Skin: no rashes Extremities: no edema Neuro: Oriented X3, grossly intact Psych: cooperative Results Labs CBC and Chem 7: 10/13/20 17:32 10/13/20 17:32 Labs: Laboratory Results - last 24 hr 10/13/20 10/13/20 10/13/20 17:32 17:32 17:32 MCV 91.5 MCH 29.7 MCHC 32.5 RDW 13.9 Plt Count 123 L MPV 9.3 L Immature Gran % (Auto) 0.9 H Neut % (Auto) 67.4 Lymph % (Auto) 27.9 [place] % (Auto) 3.3 Eos % (Auto) 0.3 Baso % (Auto) 0.2 Lymph # (Auto) 1.8 [place] # (Auto) 0.2 Eos # (Auto) 0.0 Baso # (Auto) 0.0 Abs Immat Gran (auto) 0.06 H Absolute Neuts (auto) 4.4 Absolute Nucleated RBC 0.000 Nucleated RBC % (auto) 0.0 PT INR APTT D-Dimer Anion Gap 17 Estim Creat Clear Calc 111.6 Estimated GFR > 60 POC Glucose Random Glucose 156 H D Calcium 7.9 L D Magnesium 1.6 Ferritin 156 Total Bilirubin 0.8 Direct Bilirubin 0.3 AST 50 H D ALT 61 H Alkaline Phosphatase 198 H D Lactate Dehydrogenase 221 H Total Protein 5.8 L Albumin 3.4 L Lipase 19 Procalcitonin COVID-19 ([facility]) Positive A COVID-19 Clin Com See Note 10/13/20 10/13/20 10/13/20 17:32 17:32 17:32 MCV MCH MCHC RDW Plt Count MPV Immature Gran % (Auto) Neut % (Auto) Lymph % (Auto) [place] % (Auto) Eos % (Auto) Baso % (Auto) Lymph # (Auto) [place] # (Auto) Eos # (Auto) Baso # (Auto) Abs Immat Gran (auto) Absolute Neuts (auto) Absolute Nucleated RBC Nucleated RBC % (auto) PT 12.2 INR 1.0 APTT 33.2 D-Dimer 335 Anion Gap Estim Creat Clear Calc Estimated GFR POC Glucose Random Glucose Calcium Magnesium Ferritin Total Bilirubin Direct Bilirubin AST ALT Alkaline Phosphatase Lactate Dehydrogenase Total Protein Albumin Lipase Procalcitonin 0.09 COVID-19 ([facility]) COVID-19 Clin Com 10/14/20 07:51 MCV MCH MCHC RDW Plt Count MPV Immature Gran % (Auto) Neut % (Auto) Lymph % (Auto) [place] % (Auto) Eos % (Auto) Baso % (Auto) Lymph # (Auto) [place] # (Auto) Eos # (Auto) Baso # (Auto) Abs Immat Gran (auto) Absolute Neuts (auto) Absolute Nucleated RBC Nucleated RBC % (auto) PT INR APTT D-Dimer Anion Gap Estim Creat Clear Calc Estimated GFR POC Glucose 417 H* Random Glucose Calcium Magnesium Ferritin Total Bilirubin Direct Bilirubin AST ALT Alkaline Phosphatase Lactate Dehydrogenase Total Protein Albumin Lipase Procalcitonin COVID-19 ([facility]) COVID-19 Clin Com Imaging Radiologist's Impressions: Impressions Chest X-Ray 10/13/20 16:51 IMPRESSION: Commonly reported imaging features of Covid 19 or viral pneumonia are present with ill-defined patchy infiltrates bilaterally. Other processes such as influenza pneumonia or organizing pneumonia, as can be seen with drug toxicity and connective tissue disease, can cause a similar imaging pattern. Chest CTA 10/13/20 18:06 IMPRESSION: Limited exam but no evidence of large pulmonary emboli. Commonly reported imaging features of Covid 19 or viral pneumonia are again seen is diffuse multifocal infiltrates. These were not present on the CT scan from 10/01/2020 but were seen on the chest x-ray earlier today.. Other processes such as influenza pneumonia or organizing pneumonia, as can be seen with drug toxicity and connective tissue disease, can cause a similar imaging pattern. VTE: Negative but limited Assessment and Plan (1) Pneumonia due to 2019-nCoV: Status: Acute 50F with asthma and known covid presented with sob found to be hypoxic acute hypoxic respiratory failure due to covid pneumonia and asthma exacerbation steroids, nebs, wean o2 as tolerated high risk for adverse outcome due to asthma, DM, and morbid obesity DM insulin, metformin
--- NOTE | 2020-10-14 11:21 | PC.NURSE ---
POC 392 RN YAMILEX BARTH
[2020-10-14 11:27] LABS: Glucose, Whole Blood 392 mg/dL (60-115)
--- NOTE | 2020-10-14 11:41 | MHC.CM.ED ---
pt has been admitted as inpatient for medical treatment. dc planning to continue on the inpatient side. cm to cont. to follow.
[2020-10-14] MEDS: Loperamide HCl 2 MG CAPSULE PO (11:51)
[2020-10-14 11:52] VITALS: BP 149/66; PULSE 83; RESP 16; O2SAT 96
[2020-10-14] MEDS: Insulin Glargine,Hum.rec.anlog 100 UNIT/ML 10 ML VIAL 30 UNIT SUBCUT (12:01)
[2020-10-14] MEDS: Rivaroxaban 10 MG TABLET PO (12:01)
[2020-10-14 14:34] VITALS: BP 146/81; PULSE 77; RESP 18; TEMP 37.2; O2SAT 95
[2020-10-14 16:17] LABS: Glucose, Whole Blood 448 mg/dL (60-115)
[2020-10-14] MEDS: Omeprazole 20 MG CAPSULE.DR PO (17:22)
[2020-10-14 18:44] LABS: Glucose, Whole Blood 416 mg/dL (60-115)
[2020-10-14] MEDS: Insulin Lispro 100 UNIT/ML 3 ML VIAL 10 UNIT SUBCUT (18:57)
--- NOTE | 2020-10-14 19:55 | PC.NURSE ---
Report given to CODI Reilly RN. Plan for transport to floor.
[2020-10-14 21:58] LABS: Glucose, Whole Blood 306 mg/dL (60-115)
[2020-10-14] MEDS: Pravastatin Sodium 20 MG TABLET PO (22:44)
[2020-10-14] MEDS: Benzonatate 100 MG CAPSULE PO (22:44)
[2020-10-14] MEDS: Insulin Glargine,Hum.rec.anlog 100 UNIT/ML 10 ML VIAL 50 UNIT SUBCUT (22:45)
[2020-10-14 23:49] VITALS: BP 99/52; PULSE 73; RESP 18; TEMP 36.8; O2SAT 93
[2020-10-15] VITALS (7 sets, daily range): BP systolic 103–151; BP diastolic 53–76; PULSE 70–90; RESP 17–20; TEMP 36.6–37; O2SAT 90–98
[2020-10-15 02:57] LABS: Glucose, Whole Blood 172 mg/dL (60-115)
[2020-10-15] MEDS: Omeprazole 20 MG CAPSULE.DR PO ×2 (05:34→16:17)
[2020-10-15] MEDS: Ibuprofen 600 MG TABLET PO (05:35)
[2020-10-15 07:43] LABS: Glucose, Whole Blood 107 mg/dL (60-115)
[2020-10-15 08:54] LABS: Glucose, Whole Blood 234 mg/dL (60-115)
[2020-10-15] MEDS: Loperamide HCl 2 MG CAPSULE PO (08:55)
[2020-10-15] MEDS: Insulin Glargine,Hum.rec.anlog 100 UNIT/ML 10 ML VIAL 50 UNIT SUBCUT ×2 (08:56→20:32)
--- NOTE | 2020-10-15 09:24 | P.PNIM_ITS ---
Subjective Subjective Date of Service: 10/15/20 Interval History: still sob Cardiovascular Cardiovascular: Reports no additional cardiovascular complaints Gastrointestinal Gastrointestinal: Reports no additional gastrointestinal complaints Physical Exam Vital Signs: Vital Signs: Last Vital Signs Temp 98.0 F 10/15/20 07:50 Pulse 70 10/15/20 07:50 Resp 18 10/15/20 07:50 BP 117/60 10/15/20 07:50 Pulse Ox 93 10/15/20 07:50 Body Mass Index 45.8 General: AO X 3, no acute distress Resp: Crackles CVS: S1,S2,RRR GI: soft, non tender, non distended Neuro: motor grossly intact Psych: appropriate affect Objective Data Current Medications Generic Name Dose Route Start Last Admin Trade Name Freq PRN Reason Stop Dose Admin Albuterol Sulfate 2.5 mg 10/13/20 20:54 Albuterol Sulfate (0.083%) 2.5 Mg/3 Ml Vial.Neb INHALE RQ4H PRN Wheezing Albuterol Sulfate 2 puff 10/14/20 08:05 Albuterol Sulfate 90 Mcg 8 Gm Inhaler INHALE Q4H PRN shortness of breath or wheezing Benzonatate 100 mg 10/14/20 22:07 10/14/20 22:44 Benzonatate 100 Mg Capsule PO 100 mg TID PRN Administration Cough Dexamethasone Sodium Phosphate 6 mg 10/15/20 09:00 Dexamethasone Sod Phosphate 4 Mg/Ml Vial IVPUSH DAILY [facility] Gabapentin 300 mg 10/14/20 09:00 10/14/20 22:44 Gabapentin 300 Mg Capsule PO 300 mg BID [facility] Administration Ibuprofen 400 mg 10/15/20 08:40 Ibuprofen 400 Mg Tablet PO Q6H PRN Pain, Mild (Pain Scale 1-3) Insulin Glargine 50 unit 10/14/20 21:00 10/15/20 08:56 Insulin Glargine,Hum.Rec.Anlog 100 Unit/Ml 10 Ml Vial SUBCUT 50 unit BID [facility] Administration Insulin Human Lispro 0 unit 10/14/20 11:30 10/15/20 08:43 Insulin Lispro 100 Unit/Ml 3 Ml Vial SUBCUT Not Given QIDACHS [facility] Protocol Loperamide HCl 2 mg 10/14/20 11:25 10/15/20 08:55 Loperamide Hcl 2 Mg Capsule PO 2 mg Q4H PRN Administration diarrhea Loratadine 10 mg 10/14/20 09:00 10/14/20 09:30 Loratadine 10 Mg Tablet PO 10 mg DAILY [facility] Administration Metformin HCl 1,000 mg 10/14/20 09:00 10/14/20 22:48 Metformin Hcl 1,000 Mg Tablet PO Not Given BID [facility] Omeprazole 20 mg 10/14/20 16:30 10/15/20 05:34 Omeprazole 20 Mg Capsule.Dr PO 20 mg BID@[id number] [facility] Administration Pharmacy Consult 1 each 10/13/20 16:50 Consult Rx Perform Med Rec MISCELLANE ONCE PRN Consult order Pravastatin Sodium 20 mg 10/14/20 21:00 10/14/20 22:44 Pravastatin Sodium 20 Mg Tablet PO 20 mg BEDTIME [facility] Administration Rivaroxaban 10 mg 10/14/20 11:16 10/14/20 12:01 Rivaroxaban 10 Mg Tablet PO 10 mg DAILY [facility] Administration Sodium Chloride 3 ml 10/14/20 16:00 10/15/20 00:14 0.9 % Sodium Chloride Flush 3 Ml Syringe IVFLUSH Not Given QSHIFT [facility] Labs CBC & Chem 7: 10/13/20 17:32 10/13/20 17:32 Microbiology Microbiology Results: Microbiology 10/13/20 21:32 Blood - Venous Blood Culture - Preliminary No growth after 24 hours. 10/13/20 17:32 Blood - Venous Blood Culture - Preliminary No growth after 24 hours. Assessment and Plan (1) Acute respiratory failure due to COVID-19: Status: Acute (2) Hyperglycemia: Status: Acute (3) Asthma exacerbation: Status: Acute (4) SARS-CoV-2 positive: Status: Acute Assessment and Plan: 50F with asthma and known covid presented with sob found to be hypoxic acute hypoxic respiratory failure due to covid pneumonia and asthma exacerbation continue decadron nebs, wean o2 as tolerated high risk for adverse outcome due to asthma, DM, and morbid obesity DM insulin, metformin
[2020-10-15] MEDS: Rivaroxaban 10 MG TABLET PO (09:51)
[2020-10-15] MEDS: metFORMIN HCl 1,000 MG TABLET 1000 MG PO ×2 (09:51→20:32)
[2020-10-15] MEDS: Loratadine 10 MG TABLET PO (09:51)
[2020-10-15] MEDS: Gabapentin 300 MG CAPSULE PO ×2 (09:51→20:32)
[2020-10-15] MEDS: dexAMETHasone sod phosphate 4 MG/ML VIAL 6 MG IVPUSH (09:51)
[2020-10-15] MEDS: 0.9 % Sodium Chloride Flush 3 ML SYRINGE IVFLUSH ×3 (09:52→20:32)
[2020-10-15] MEDS: Albuterol Sulfate 90 MCG 8 GM INHALER 2 PUFF INHALE (11:07)
[2020-10-15] MEDS: Ibuprofen 400 MG TABLET PO ×2 (11:11→20:44)
[2020-10-15 11:45] LABS: Glucose, Whole Blood 261 mg/dL (60-115)
--- NOTE | 2020-10-15 12:05 | MHC.CM.PN ---
CM spoke with patient by phone since COVID+, patient is homeless and is staying at [facility] in [place]. Patient amb with a walker. Patient does not have a HCP and declines filling one out today after education given. Discussed discharge plan, patient will return to [facility] when medically stable. Patient will need BLS transport. IMM addressed. CM will continue to follow for discharge needs.
[2020-10-15] MEDS: Insulin Lispro 100 UNIT/ML 3 ML VIAL SUBCUT ×3 (12:07→20:33)
[2020-10-15 12:10] LABS: CDIFF Ag Negative (Negative); CDIFF Internal ctrl Dots and bkg OK (V); CDiff Toxin Negative (Negative)
[2020-10-15] MEDS: Benzonatate 100 MG CAPSULE PO ×2 (14:29→20:45)
[2020-10-15] MEDS: Acetaminophen 325 MG TABLET 650 MG PO (14:47)
[2020-10-15 16:14] LABS: Glucose, Whole Blood 320 mg/dL (60-115)
[2020-10-15 20:03] LABS: Glucose, Whole Blood 354 mg/dL (60-115)
[2020-10-15] MEDS: Pravastatin Sodium 20 MG TABLET PO (20:32)
--- NOTE | 2020-10-15 22:59 | PC.NURSE ---
P: Pt's POC found to be 354 at 8pm. I: Pt given usual dose of Lantus 50 units and Lispro 10 units per sliding scale. MD notified. No new orders at this time. Pt educated on the importance of following a diabetic diet and that her POC may be increased due to IV steroids. E: Will continue to monitor pt and recheck POC in AM.
[2020-10-16] VITALS (7 sets, daily range): BP systolic 115–142; BP diastolic 62–82; PULSE 75–94; RESP 18–20; TEMP 36.2–37; O2SAT 92–97
[2020-10-16] MEDS: Acetaminophen 325 MG TABLET 650 MG PO (00:56)
[2020-10-16] MEDS: Omeprazole 20 MG CAPSULE.DR PO ×2 (06:35→16:31)
[2020-10-16 07:20] LABS: Glucose, Whole Blood 157 mg/dL (60-115)
[2020-10-16] MEDS: Gabapentin 300 MG CAPSULE PO ×2 (07:44→20:50)
[2020-10-16] MEDS: Rivaroxaban 10 MG TABLET PO (07:44)
[2020-10-16] MEDS: metFORMIN HCl 1,000 MG TABLET 1000 MG PO ×2 (07:44→20:50)
[2020-10-16] MEDS: Loratadine 10 MG TABLET PO (07:45)
[2020-10-16] MEDS: dexAMETHasone sod phosphate 4 MG/ML VIAL 6 MG IVPUSH (07:45)
[2020-10-16] MEDS: Insulin Glargine,Hum.rec.anlog 100 UNIT/ML 10 ML VIAL 50 UNIT SUBCUT ×2 (07:45→20:51)
[2020-10-16] MEDS: Insulin Lispro 100 UNIT/ML 3 ML VIAL SUBCUT ×4 (07:46→20:50)
[2020-10-16] MEDS: 0.9 % Sodium Chloride Flush 3 ML SYRINGE IVFLUSH ×3 (07:57→20:57)
[2020-10-16] MEDS: Ibuprofen 400 MG TABLET PO ×2 (08:00→14:40)
[2020-10-16] MEDS: Benzonatate 100 MG CAPSULE PO ×3 (08:01→23:09)
[2020-10-16] MEDS: Morphine Sulfate 2 MG/ML CARTRIDGE IVPUSH ×3 (11:28→23:09)
[2020-10-16 11:33] LABS: Glucose, Whole Blood 223 mg/dL (60-115)
--- NOTE | 2020-10-16 13:56 | P.PNIM_ITS ---
Subjective Subjective Date of Service: 10/16/20 Interval History: still very sob, diarrhea resolved Cardiovascular Cardiovascular: Reports no additional cardiovascular complaints Gastrointestinal Gastrointestinal: Reports no additional gastrointestinal complaints Physical Exam Vital Signs: Vital Signs: Last Vital Signs Temp 98.6 F 10/16/20 11:27 Pulse 78 10/16/20 11:27 Resp 20 10/16/20 11:27 BP 142/75 H 10/16/20 11:27 Pulse Ox 94 10/16/20 11:27 Body Mass Index 45.8 General: AO X 3, no acute distress Resp: Crackles CVS: S1,S2,RRR GI: soft, non tender, non distended Neuro: motor grossly intact Psych: appropriate affect Objective Data Current Medications Generic Name Dose Route Start Last Admin Trade Name Freq PRN Reason Stop Dose Admin Acetaminophen 650 mg 10/15/20 14:41 10/16/20 00:56 Acetaminophen 325 Mg Tablet PO 650 mg Q4H PRN Administration pain Albuterol Sulfate 2.5 mg 10/13/20 20:54 Albuterol Sulfate (0.083%) 2.5 Mg/3 Ml Vial.Neb INHALE RQ4H PRN Wheezing Albuterol Sulfate 2 puff 10/14/20 08:05 10/15/20 11:07 Albuterol Sulfate 90 Mcg 8 Gm Inhaler INHALE 2 puff Q4H PRN Administration shortness of breath or wheezing Benzonatate 100 mg 10/14/20 22:07 10/16/20 08:01 Benzonatate 100 Mg Capsule PO 100 mg TID PRN Administration Cough Dexamethasone Sodium Phosphate 6 mg 10/15/20 09:00 10/16/20 07:45 Dexamethasone Sod Phosphate 4 Mg/Ml Vial IVPUSH 6 mg DAILY [facility] Administration Gabapentin 300 mg 10/14/20 09:00 10/16/20 07:44 Gabapentin 300 Mg Capsule PO 300 mg BID [facility] Administration Ibuprofen 400 mg 10/15/20 08:40 10/16/20 08:00 Ibuprofen 400 Mg Tablet PO 400 mg Q6H PRN Administration Pain, Mild (Pain Scale 1-3) Insulin Glargine 50 unit 10/14/20 21:00 10/16/20 07:45 Insulin Glargine,Hum.Rec.Anlog 100 Unit/Ml 10 Ml Vial SUBCUT 50 unit BID [facility] Administration Insulin Human Lispro 0 unit 10/14/20 11:30 10/16/20 11:34 Insulin Lispro 100 Unit/Ml 3 Ml Vial SUBCUT 4 unit QIDACHS [facility] Administration Protocol Loperamide HCl 2 mg 10/14/20 11:25 10/15/20 08:55 Loperamide Hcl 2 Mg Capsule PO 2 mg Q4H PRN Administration diarrhea Loratadine 10 mg 10/14/20 09:00 10/16/20 07:45 Loratadine 10 Mg Tablet PO 10 mg DAILY [facility] Administration Metformin HCl 1,000 mg 10/14/20 09:00 10/16/20 07:44 Metformin Hcl 1,000 Mg Tablet PO 1,000 mg BID [facility] Administration Morphine Sulfate 2 mg 10/16/20 10:42 10/16/20 11:28 Morphine Sulfate 2 Mg/Ml Cartridge IVPUSH 2 mg Q4H PRN Administration sob, pain Omeprazole 20 mg 10/14/20 16:30 10/16/20 06:35 Omeprazole 20 Mg Capsule. PO 20 mg BID@[id number] [facility] Administration Pharmacy Consult 1 each 10/13/20 16:50 Consult Rx Perform Med Rec MISCELLANE ONCE PRN Consult order Pravastatin Sodium 20 mg 10/14/20 21:00 10/15/20 20:32 Pravastatin Sodium 20 Mg Tablet PO 20 mg BEDTIME [facility] Administration Rivaroxaban 10 mg 10/14/20 11:16 10/16/20 07:44 Rivaroxaban 10 Mg Tablet PO 10 mg DAILY [facility] Administration Sodium Chloride 3 ml 10/14/20 16:00 10/16/20 07:57 0.9 % Sodium Chloride Flush 3 Ml Syringe IVFLUSH 3 ml QSHIFT [facility] Administration Labs CBC & Chem 7: 10/13/20 17:32 10/13/20 17:32 Microbiology Microbiology Results: Microbiology 10/13/20 21:32 Blood - Venous Blood Culture - Preliminary No growth after 48 hours. 10/13/20 17:32 Blood - Venous Blood Culture - Preliminary No growth after 48 hours. Assessment and Plan (1) Acute respiratory failure due to COVID-19: Status: Acute (2) Hyperglycemia: Status: Acute (3) Asthma exacerbation: Status: Acute (4) SARS-CoV-2 positive: Status: Acute Assessment and Plan: 50F with asthma and known covid presented with sob found to be hypoxic acute hypoxic respiratory failure due to covid pneumonia and asthma exacerbation continue decadron nebs, wean o2 as tolerated, will try morphine for work of breathing high risk for adverse outcome due to asthma, DM, and morbid obesity check prognostic labs abdominal pain resolved ct unremarkable DM insulin, metformin
[2020-10-16 16:05] LABS: Glucose, Whole Blood 295 mg/dL (60-115)
[2020-10-16] MEDS: Albuterol Sulfate (0.083%) 2.5 MG/3 ML VIAL.NEB INHALE (17:19)
[2020-10-16 20:08] LABS: Glucose, Whole Blood 274 mg/dL (60-115)
[2020-10-16] MEDS: Pravastatin Sodium 20 MG TABLET PO (20:50)
[2020-10-17 02:58] VITALS: BP 135/76; PULSE 81; RESP 18; TEMP 36.9; O2SAT 99
[2020-10-17] MEDS: Ibuprofen 400 MG TABLET PO ×2 (03:59→15:22)
[2020-10-17 06:06] LABS: MANUAL DIFF FLAG NO
[2020-10-17] MEDS: Omeprazole 20 MG CAPSULE.DR PO ×2 (06:26→16:28)
[2020-10-17 06:42] LABS: Basophils Percent Auto 0.2 % (0-2); Eosinophils Absolute Auto 0.1 X10*3/uL (0.0-0.4); Eosinophils Percent Auto 0.8 % (0-4); Hematocrit 39.1 % (37-47); Hemoglobin 12.8 g/dl (12.0-16.0); Imm Gran Abs Auto 0.06 X10*3/uL (0.00-0.03); Lymphocytes Absolute Auto 1.3 X10*3/uL (1.2-4.9); Lymphocytes Percent Auto 21.3 % (20-40); Mean Corpuscular HGB Conc 32.7 g/dl (31.0-35.0); Mean Corpuscular Hemoglobin 29.4 pg (27.0-33.0); Mean Corpuscular Volume 89.9 fL (80-98); Monocytes Absolute Auto 0.2 X10*3/uL (0.1-1.2); Monocytes Percent Auto 3.7 % (2-11); Neutrophils Absolute Auto 4.6 X10*3/uL (2.0-8.3); Platelet Count 182 X10*3/uL (160-400); Red Blood Count 4.35 X10*6/uL (4.20-5.50); Red Cell Distribution Width 13.2 % (11.0-16.0); White Blood Count 6.3 X10*3/uL (4.8-10.8)
[2020-10-17 06:54] LABS: Anion Gap 14 (12-20); Blood Urea Nitrogen 23 mg/dL (9-16); C Reactive Protein 7.86 mg/dL (< or = 0.50); Calcium 8.9 mg/dL (8.4-10.2); Carbon Dioxide 25 mmol/L (22-29); Chloride 105 mmol/L (96-108); Creatinine Clr Calc Pharmacy 127.2; Estimated Glomerular Filt Rate > 60; Glucose Fasting 85 mg/dL (60-99); Lactate Dehydrogenase 277 U/L (122-220); Potassium 4.1 mmol/L (3.3-5.1); Sodium 140 mmol/L (135-145)
[2020-10-17 06:57] LABS: D Dimer 301 NG/ML
[2020-10-17 07:20] LABS: Glucose, Whole Blood 89 mg/dL (60-115)
[2020-10-17 07:52] VITALS: BP 142/85; PULSE 73; RESP 20; TEMP 36.4; O2SAT 96
[2020-10-17] MEDS: dexAMETHasone sod phosphate 4 MG/ML VIAL 6 MG IVPUSH (08:38)
[2020-10-17] MEDS: Insulin Glargine,Hum.rec.anlog 100 UNIT/ML 10 ML VIAL 50 UNIT SUBCUT ×2 (08:39→20:43)
[2020-10-17] MEDS: metFORMIN HCl 1,000 MG TABLET 1000 MG PO ×2 (08:39→20:43)
[2020-10-17] MEDS: Loratadine 10 MG TABLET PO (08:39)
[2020-10-17] MEDS: Gabapentin 300 MG CAPSULE PO ×2 (08:39→20:43)
[2020-10-17] MEDS: Rivaroxaban 10 MG TABLET PO (08:39)
[2020-10-17] MEDS: 0.9 % Sodium Chloride Flush 3 ML SYRINGE IVFLUSH ×3 (09:25→20:43)
[2020-10-17] MEDS: Benzonatate 100 MG CAPSULE PO ×2 (09:25→20:46)
[2020-10-17] MEDS: Morphine Sulfate 2 MG/ML CARTRIDGE IVPUSH ×2 (09:25→20:42)
--- NOTE | 2020-10-17 09:27 | P.CDIC_ITS ---
CDI Concurrent Query Service Date: 10/17/20 Documentation Clarification: Please clarify if you are treating a proba ble/suspected/likely or confirmed: BMI Morbid obesity Please specify if known or undetermined Provider Response: Morbid Obesity PLEASE DO NOT DELETE/MODIFY EXISTING CONTENT Additional information is needed in order to code to the highest accuracy and appropriate Severity of Illness (SOI). Please clarify the information noted below in your progress notes and discharge summary. Risk Factors/Clinical Indicators/Treatments Body mass index: 45.9 CDS: Kinza Keen [facility], [facility] Contact Number: [phone] Please Review the information above and exercise your independent professional judgment in responding to the query. If you concur, pleas document in the PROGRESS NOTES and DISCHARGE SUMMARY. If you do not agree with the query, please document in the query above. THIS QUERY IS PART OF THE PERMANENT MEDICAL RECORD
[2020-10-17 11:13] LABS: Glucose, Whole Blood 187 mg/dL (60-115)
[2020-10-17 11:32] VITALS: BP 139/73; PULSE 77; RESP 20; TEMP 36.4; O2SAT 94
[2020-10-17] MEDS: Insulin Lispro 100 UNIT/ML 3 ML VIAL SUBCUT ×3 (11:46→20:43)
[2020-10-17] MEDS: Acetaminophen 325 MG TABLET 650 MG PO (13:23)
[2020-10-17] MEDS: Loperamide HCl 2 MG CAPSULE PO ×2 (13:26→20:43)
--- NOTE | 2020-10-17 13:33 | MHC.CM.PN ---
Patient continues to need 2 liters O2 and IV Dexamethasone day 08/22 for COVID+. Also on IV MS for resp disctress. Discharge plan is to return to [facility]. Patient will need S transportation. CM will continue to follow patient for discharge needs.
--- NOTE | 2020-10-17 14:06 | HO.PM.IMPN ---
Subjective Subjective Date of Service: 10/17/20 Interval History: the patient was seen and evaluated this morning Laying in bed, feels tired short of breath still Denies any fever, chills or chest No reported other overnight events. Systemic review: No fever, chills increase weakness No chest pain, palpitation Reporting exertion shortness of breath or coughing No abdominal pain, nausea or vomiting No urinary symptoms No any rash or wounds Physical Exam Vital Signs: Vital Signs: Last Vital Signs Temp 97.5 F 10/17/20 11:32 Pulse 77 10/17/20 11:32 Resp 20 10/17/20 11:32 BP 139/73 10/17/20 11:32 Pulse Ox 94 10/17/20 11:32 Body Mass Index 45.8 Const: Other: Constitutional : Alert, oriented Neck : Normal inspection, Supple Cardiovascular : RRR, S1 S2, no lower extremity edema Respiratory : Fair bilateral air entry, no crackles, tachypneic still on nasal cannula Gastrointestinal: soft, lax, Normal bowel sounds, Non tender Skin : Warm/Dry, No rash Neurological : Alert & oriented x3, No focal deficit Objective Data Current Medications Generic Name Dose Route Start Last Admin Trade Name Freq PRN Reason Stop Dose Admin Acetaminophen 650 mg 10/15/20 14:41 10/17/20 13:23 Acetaminophen 325 Mg Tablet PO 650 mg Q4H PRN Administration pain Albuterol Sulfate 2.5 mg 10/13/20 20:54 10/16/20 17:19 Albuterol Sulfate (0.083%) 2.5 Mg/3 Ml Vial.Neb INHALE 2.5 mg RQ4H PRN Administration Wheezing Albuterol Sulfate 2 puff 10/14/20 08:05 10/15/20 11:07 Albuterol Sulfate 90 Mcg 8 Gm Inhaler INHALE 2 puff Q4H PRN Administration shortness of breath or wheezing Benzonatate 100 mg 10/14/20 22:07 10/17/20 09:25 Benzonatate 100 Mg Capsule PO 100 mg TID PRN Administration Cough Dexamethasone Sodium Phosphate 6 mg 10/15/20 09:00 10/17/20 08:38 Dexamethasone Sod Phosphate 4 Mg/Ml Vial IVPUSH 6 mg DAILY [facility] Administration Gabapentin 300 mg 10/14/20 09:00 10/17/20 08:39 Gabapentin 300 Mg Capsule PO 300 mg BID [facility] Administration Ibuprofen 400 mg 10/15/20 08:40 10/17/20 03:59 Ibuprofen 400 Mg Tablet PO 400 mg Q6H PRN Administration Pain, Mild (Pain Scale 1-3) Insulin Glargine 50 unit 10/14/20 21:00 10/17/20 08:39 Insulin Glargine,Hum.Rec.Anlog 100 Unit/Ml 10 Ml Vial SUBCUT 50 unit BID [facility] Administration Insulin Human Lispro 0 unit 10/14/20 11:30 10/17/20 11:46 Insulin Lispro 100 Unit/Ml 3 Ml Vial SUBCUT 2 unit QIDACHS [facility] Administration Protocol Loperamide HCl 2 mg 10/14/20 11:25 10/17/20 13:26 Loperamide Hcl 2 Mg Capsule PO 2 mg Q4H PRN Administration diarrhea Loratadine 10 mg 10/14/20 09:00 10/17/20 08:39 Loratadine 10 Mg Tablet PO 10 mg DAILY [facility] Administration Metformin HCl 1,000 mg 10/14/20 09:00 10/17/20 08:39 Metformin Hcl 1,000 Mg Tablet PO 1,000 mg BID [facility] Administration Morphine Sulfate 2 mg 10/16/20 10:42 10/17/20 09:25 Morphine Sulfate 2 Mg/Ml Cartridge IVPUSH 2 mg Q4H PRN Administration sob, pain Omeprazole 20 mg 10/14/20 16:30 10/17/20 06:26 Omeprazole 20 Mg Capsule. PO 20 mg BID@[id number] [facility] Administration Pharmacy Consult 1 each 10/13/20 16:50 Consult Rx Perform Med Rec MISCELLANE ONCE PRN Consult order Pravastatin Sodium 20 mg 10/14/20 21:00 10/16/20 20:50 Pravastatin Sodium 20 Mg Tablet PO 20 mg BEDTIME [facility] Administration Rivaroxaban 10 mg 10/14/20 11:16 10/17/20 08:39 Rivaroxaban 10 Mg Tablet PO 10 mg DAILY [facility] Administration Sodium Chloride 3 ml 10/14/20 16:00 10/17/20 09:25 0.9 % Sodium Chloride Flush 3 Ml Syringe IVFLUSH 3 ml QSHIFT [facility] Administration Labs CBC & Chem 7: 10/17/20 05:36 10/17/20 05:36 Microbiology Microbiology Results: Microbiology 10/13/20 21:32 Blood - Venous Blood Culture - Preliminary No growth after 48 hours. 10/13/20 17:32 Blood - Venous Blood Culture - Preliminary No growth after 48 hours. Assessment and Plan (1) Acute respiratory failure due to COVID-19: Status: Resolved (2) Hyperglycemia: Status: Resolved (3) Asthma exacerbation: Status: Resolved (4) SARS-CoV-2 positive: Status: Resolved Assessment and Plan: 50F with asthma and known covid presented with sob found to be hypoxic acute hypoxic respiratory failure due to covid pneumonia and asthma exacerbation continue decadron T3 nebs, wean o2 as tolerated will try morphine for work of breathing high risk for adverse outcome due to asthma, DM, and morbid obesity Follow prognostic labs To do home O2 evaluation today Morbid obesity Advised to lose weight as it is contributing to her overall condition abdominal pain resolved ct unremarkable DM insulin, metformin DVT PPX Xarelto
[2020-10-17 15:18] VITALS: BP 152/78; PULSE 86; RESP 19; TEMP 36.1; O2SAT 93
[2020-10-17 16:11] LABS: Glucose, Whole Blood 315 mg/dL (60-115)
[2020-10-17 19:04] VITALS: BP 144/80; PULSE 78; RESP 20; TEMP 36; O2SAT 95
[2020-10-17 20:12] LABS: Glucose, Whole Blood 256 mg/dL (60-115)
[2020-10-17] MEDS: Pravastatin Sodium 20 MG TABLET PO (20:43)
[2020-10-18] VITALS: BP 109/56; PULSE 77; RESP 19; TEMP 36.4; O2SAT 95
[2020-10-18] MEDS: Loperamide HCl 2 MG CAPSULE PO ×2 (01:16→14:27)
[2020-10-18 03:50] VITALS: BP 134/64; PULSE 55; RESP 18; TEMP 36.2; O2SAT 97
[2020-10-18] MEDS: Omeprazole 20 MG CAPSULE.DR PO (05:32)
[2020-10-18 06:45] LABS: Hematocrit 41.2 % (37-47); Hemoglobin 13.5 g/dl (12.0-16.0); Mean Corpuscular HGB Conc 32.8 g/dl (31.0-35.0); Mean Corpuscular Hemoglobin 29.4 pg (27.0-33.0); Mean Corpuscular Volume 89.8 fL (80-98); Platelet Count 198 X10*3/uL (160-400); Red Blood Count 4.59 X10*6/uL (4.20-5.50); Red Cell Distribution Width 13.1 % (11.0-16.0); White Blood Count 6.9 X10*3/uL (4.8-10.8)
[2020-10-18 06:49] LABS: Anion Gap 15 (12-20); Blood Urea Nitrogen 23 mg/dL (9-16); Calcium 9.3 mg/dL (8.4-10.2); Carbon Dioxide 27 mmol/L (22-29); Chloride 104 mmol/L (96-108); Creatinine Clr Calc Pharmacy 116.4; Estimated Glomerular Filt Rate > 60; Glucose Random 179 mg/dL (60-115); Potassium 4.2 mmol/L (3.3-5.1); Sodium 142 mmol/L (135-145)
[2020-10-18 07:49] VITALS: BP 140/78; PULSE 71; RESP 20; TEMP 36.1; O2SAT 96
[2020-10-18 07:57] LABS: Glucose, Whole Blood 205 mg/dL (60-115)
[2020-10-18] MEDS: Insulin Glargine,Hum.rec.anlog 100 UNIT/ML 10 ML VIAL 50 UNIT SUBCUT (08:04)
[2020-10-18] MEDS: Insulin Lispro 100 UNIT/ML 3 ML VIAL SUBCUT ×2 (08:04→12:07)
[2020-10-18] MEDS: metFORMIN HCl 1,000 MG TABLET 1000 MG PO (08:05)
[2020-10-18] MEDS: 0.9 % Sodium Chloride Flush 3 ML SYRINGE IVFLUSH (08:05)
[2020-10-18] MEDS: Loratadine 10 MG TABLET PO (08:05)
[2020-10-18] MEDS: Rivaroxaban 10 MG TABLET PO (08:05)
[2020-10-18] MEDS: dexAMETHasone sod phosphate 4 MG/ML VIAL 6 MG IVPUSH (08:05)
[2020-10-18] MEDS: Gabapentin 300 MG CAPSULE PO (08:05)
[2020-10-18 08:20] VITALS: RESP 16
[2020-10-18] MEDS: Morphine Sulfate 2 MG/ML CARTRIDGE IVPUSH ×2 (08:20→14:21)
[2020-10-18] MEDS: Benzonatate 100 MG CAPSULE PO (08:21)
[2020-10-18 11:34] LABS: Glucose, Whole Blood 302 mg/dL (60-115)
[2020-10-18 11:40] VITALS: BP 127/70; PULSE 80; RESP 20; TEMP 36.2; O2SAT 90
--- NOTE | 2020-10-18 12:21 | MHC.CM.PN ---
Patient will be discharged to [address] on O2 from [facility]. BLS transport at 3pm.
[2020-10-18 12:29] VITALS: PULSE 83; PULSE 84; PULSE 95; O2SAT 83; O2SAT 87; O2SAT 89
--- NOTE | 2020-10-18 15:23 | PM.DS ---
DS: Providers Provider Date of Service: 10/18/20 Date of admission: 10/14/20 10:37 Primary care physician: Leti Ballesteros MD DS: Diagnosis Discharge Diagnosis (1) Acute respiratory failure due to COVID-19: Status: Resolved (2) Hyperglycemia: Status: Resolved (3) Asthma exacerbation: Status: Resolved (4) SARS-CoV-2 positive: Status: Resolved (5) Pneumonia due to 2019-nCoV: Status: Acute (6) Acute respiratory failure with hypoxia: Status: Acute (7) Asthma: Status: Acute DS: Medications Discharge Medications Home Medications: Home Medications Medication Instructions Recorded Confirmed aspirin 325 mg tablet See Rx Instructions .ROUTE .COMPLEX 06/22/20 10/16/20 cetirizine 10 mg tablet 10 mg PO DAILY 06/22/20 10/16/20 fluticasone propionate 230 2 puff INHALATION BID 06/22/20 10/16/20 mcg-salmeterol 21 mcg/actuation HFA inhaler gabapentin 300 mg capsule 300 mg PO BID 06/22/20 10/14/20 glipizide 5 mg tablet 5 mg PO BID 06/22/20 10/16/20 ibuprofen 600 mg tablet 600 mg PO Q8H PRN 06/22/20 10/16/20 insulin aspart U-100 100 unit/mL See Rx Instructions .ROUTE .COMPLEX 06/22/20 10/14/20 subcutaneous solution insulin glargine 100 unit/mL (3 64 unit SUBCUT BID 06/22/20 10/16/20 mL) subcutaneous pen metformin 1,000 mg tablet 1,000 mg PO BID 06/22/20 10/14/20 omeprazole 20 mg capsule,delayed 20 mg PO BID 06/22/20 10/14/20 release pravastatin 20 mg tablet 20 mg PO DAILY 06/22/20 10/14/20 Previous Rx's Medication Instructions Recorded albuterol sulfate [Ventolin HFA] 2 puff INHALATION Q4-6H PRN #1 ea 03/23/20 dexamethasone 6 mg PO DAILY #5 tab 10/09/20 fluticasone propionate 1 spray INTRANASAL BID 7 Days g 10/09/20 dexamethasone 6 mg PO DAILY #5 tab 10/18/20 DS: Summary Hospital Course Hospital Course: Admission note HPI 50F presnted with sob. patient has had symptoms since several days before first ED visit 10/01/20, when she tested negative for covid, she then presented 10/06/20 and tested positive. she was hypoxic at that time and treated with steroids. on 10/09/20 she was feeling much better and able to ambulate on room air, so was discharged home. patient did feel better at home for a couple of days, but then started having shortness of breath again so she returned to ED where she was found to be hypoxic to 84% on room air. patient denies fever, chills, chest pain. Hospital course Patient was admitted to the hospital for acute hypoxic respiratory failure secondary COVID infection she was readmitted after most recent admission. She was treated with oxygen supplement, nebulizers and steroids with fair response over the course of hospital stay as she was weaned down the oxygen supplement. Evaluated by respiratory therapist for home oxygen which she qualifies for. To be discharged to continue dexamethasone therapy and to wean oxygen supplement down as tolerated. To be discharged on home oxygen supplement Continue dexamethasone as prescribed Time Spent with Patient Time attestation: Total time spent providing and/or coordinating discharge services: Discharge coordination time: Greater than 30 minutes Physical Exam Vital Signs: Vital Signs: Last Vital Signs Temp 97.2 F 10/18/20 11:40 Pulse 80 10/18/20 11:40 Resp 20 10/18/20 11:40 BP 127/70 10/18/20 11:40 Pulse Ox 90 L 10/18/20 11:40 Body Mass Index 45.8 Const: Other: Constitutional : Alert, oriented Neck : Normal inspection, Supple Cardiovascular : RRR, S1 S2, no lower extremity edema Respiratory : Fair bilateral air entry, no crackles, tachypneic still on nasal cannula Gastrointestinal: soft, lax, Normal bowel sounds, Non tender Skin : Warm/Dry, No rash Neurological : Alert & oriented x3, No focal deficit DS: Data Data Completed and Pending Labs on day of discharge: Laboratory Results - last 24 hr 10/17/20 10/17/20 10/18/20 16:06 20:09 05:38 WBC 6.9 RBC 4.59 Hgb 13.5 Hct 41.2 MCV 89.8 MCH 29.4 MCHC 32.8 RDW 13.1 Plt Count 198 MPV 9.0 L Absolute Nucleated RBC 0.000 Nucleated RBC % (auto) 0.0 Sodium Potassium Chloride Carbon Dioxide Anion Gap BUN Creatinine Estim Creat Clear Calc Estimated GFR POC Glucose 315 H 256 H Random Glucose Calcium 10/18/20 10/18/20 10/18/20 05:38 07:51 11:24 WBC RBC Hgb Hct MCV MCH MCHC RDW Plt Count MPV Absolute Nucleated RBC Nucleated RBC % (auto) Sodium 142 Potassium 4.2 Chloride 104 Carbon Dioxide 27 Anion Gap 15 BUN 23 H Creatinine 0.70 Estim Creat Clear Calc 116.4 Estimated GFR > 60 POC Glucose 205 H 302 H Random Glucose 179 H Calcium 9.3 Preliminary micro results at discharge 10/13/20 21:32 Blood Culture - Preliminary Blood - Venous No growth after 48 hours. 10/13/20 17:32 Blood Culture - Preliminary Blood - Venous No growth after 48 hours. Discharge Plan Discharge Patient Disposition: Home, Self-Care Discharge Diagnosis: Hypoxia secondary to COVID-19 infection Referrals: [facility]2 [Other] - 1 Week Leti Ballesteros MD [Primary Care Provider] - 1 Week Discharge Medications: New dexamethasone 6 mg tablet 6 mg PO DAILY Qty: 5 RF: 0 Continued albuterol sulfate [Ventolin HFA] 90 mcg/actuation HFA aerosol inhaler 2 puff inhalation Q4-6H PRN (Reason: shortness of breath or wheezing) Qty: 1 RF: 0 fluticasone propionate 50 mcg/actuation [place],Suspension 1 spray intranasal BID 7 Days RF: 0 dexamethasone 6 mg tablet 6 mg PO DAILY Qty: 5 RF: 0 insulin aspart U-100 100 unit/mL solution See Rx Instructions .ROUTE .COMPLEX RF: 0 omeprazole 20 mg capsule,delayed release(DR/EC) 20 mg PO BID RF: 0 metformin 1,000 mg tablet 1,000 mg PO BID RF: 0 gabapentin 300 mg capsule 300 mg PO BID RF: 0 glipizide 5 mg tablet 5 mg PO BID RF: 0 aspirin 325 mg tablet See Rx Instructions .ROUTE .COMPLEX RF: 0 ibuprofen 600 mg tablet 600 mg PO Q8H PRN (Reason: pain) RF: 0 cetirizine 10 mg tablet 10 mg PO DAILY RF: 0 insulin glargine 100 unit/mL (3 mL) insulin pen 64 unit subcut BID RF: 0 fluticasone propion-salmeterol 230-21 mcg/actuation HFA aerosol inhaler 2 puff inhalation BID RF: 0 pravastatin 20 mg tablet 20 mg PO DAILY RF: 0 Discontinued cefuroxime axetil 500 mg tablet 500 mg PO BID Qty: 4 RF: 0 Discharge Orders: Discharge Order (Routine); Ordered 10/18/20 Ordered By: Megan Garrison Diet: advance to usual diet Activity on Discharge: As tolerated Stand Alone Forms: Patient Portal Discharge page Care Plan Goals: Read below Health Concerns: Read below Plan of Treatment: You were admitted to the hospital for difficulty breathing as a result of having COVID-19 infection. Treated IV steroids and oxygen supplement with good response over course of hospital stay. Assessment: Continue dexamethasone as prescribed
== END 2020-10-18 16:00 | disposition home or self-care (01) | DRG 177 ==
LOC: HO.ED 17:07 → HO.EDOVER 10-14 10:57 → HO.IMC 10-14 18:34
PROVIDERS: Admitting Provider Internal Medicine; Emergency Provider Emergency Medicine; PCP Internal Medicine; Visit Provider Student in an Organized Health Care Education/Training Program
DX: U07.1 COVID-19 (principal); J12.82 Pneumonia due to coronavirus disease 2019; J96.01 Acute respiratory failure with hypoxia; J45.901 Unspecified asthma with (acute) exacerbation; Z68.42 Body mass index [BMI] 45.0-49.9, adult; E66.01 Morbid (severe) obesity due to excess calories; E11.65 Type 2 diabetes mellitus with hyperglycemia; Z59.0 Homelessness; Z87.891 Personal history of nicotine dependence; Z88.5 Allergy status to narcotic agent; Z79.4 Long term (current) use of insulin; Z79.51 Long term (current) use of inhaled steroids; Z79.82 Long term (current) use of aspirin; Z79.899 Other long term (current) drug therapy
CPT/HCPCS: 36415; 71045; 71275; 74176; 80048; 80076; 82728; 82947; 83615; 83690; 83735; 84145; 85025; 85027; 85379; 85610; 85730; 86140; 87040; 87324; 87449; 87635; 93005; 94640; 94664; 99285; J1100; J2270; Q9967

== ENCOUNTER 2020-10-25 18:24 | Emergency (ER) | payer OTHER, SELFPAY ==
--- NOTE | ~2020-10-25 | XR_ITS ---
EXAMINATION: XR CHEST CLINICAL INFORMATION: Dyspnea COMPARISON: Chest 10/13/2020 TECHNIQUE: Frontal view of the chest was obtained. FINDINGS: There is a patchy groundglass opacities seen scattered throughout both lungs likely infiltrate. No pleural effusion seen. The heart size is enlarged. Pulmonary vascularity appears within normal limits. No gross bony abnormality. XR/XR chest 1V IMPRESSION: Diffuse bilateral infiltrates progressed since 10/13/2020 chest exam.
--- NOTE | ~2020-10-25 | CT_ITS ---
EXAMINATION: CT ANGIOGRAM OF THE CHEST WITH AND WITHOUT CONTRAST (CT PULMONARY ANGIOGRAM FOR PE) CLINICAL INFORMATION: Reason for Exam COVID-19 10/06/2020, increased SOB, increased D-dimer r/o PE COMPARISON: And CT abdomen 10/16/2019 CT pulmonary angiogram 10/13/2020 TECHNIQUE: Prior to contrast administration, noncontrast localization images were obtained. Subsequently, multidetector volumetric imaging was performed from the thoracic inlet to below the diaphragms following the administration of 65 mL Omnipaque 350 intravenous contrast. No contrast reaction reported Sagittal, coronal, and MIP oblique sagittal reformatted images were obtained on the CT workstation, uploaded to PACS, and reviewed. This CT examination was performed using dose optimization techniques as appropriate, variously including the following: *Automated exposure control *Adjustment of mA and/or kV according to patient size (this includes techniques or standardized protocols for targeted exams where dose is matched to indication/reason for exam; i.e. extremities or head) *Use of iterative reconstruction technique Total exam dose-length product 446 mGy-cm FINDINGS: QUALITY OF STUDY/CONTRAST BOLUS: Satisfactory. PULMONARY ARTERIES: No central or segmental pulmonary emboli. THORACIC AORTA: No aneurysm or dissection. A 4 vessel arch appears to be present with a separate origin to the left vertebral artery. LUNG: Again seen are peripheral defined infiltrates bilaterally. Findings appear minimally worse when compared to the prior study with areas of increased infiltrate in the upper lobes. Some of the findings in the lower lobes appear more linear and scarlike but the quality of the current study is better than the prior exam when there was marked respiratory artifact. No gross consolidations are seen with air bronchograms. PLEURA: No pleural effusion or pneumothorax. MEDIASTINUM: Normal heart size. No pericardial effusion. Again seen are small reactive lymph nodes but there is no hilar or mediastinal lymphadenopathy. No evidence of septal bowing or right heart strain. CHEST WALL/AXILLA: No axillary or internal mammary lymphadenopathy. OSSEOUS STRUCTURES: No acute or suspicious osseous abnormality. UPPER ABDOMEN: Again seen is probable enlarged fatty liver and mild splenomegaly. No reflux of contrast into the hepatic veins to suggest elevated right heart pressures. CT/CT angio chest PE protocol IMPRESSION: 1. No evidence of pulmonary emboli 2. Slightly worse findings of Covid 19 pulmonary disease 3. Mild hepatosplenomegaly with probable fatty liver VTE: negative
[2020-10-25 19:28] VITALS: BP 141/82; PULSE 84; RESP 18; TEMP 37; O2SAT 99; BMI 42.9
--- NOTE | 2020-10-25 21:27 | ECG_ITS ---
Test Reason : DYSPNEA Blood Pressure : / mmHG Vent. Rate : 078 BPM Atrial Rate : 078 BPM P-R Int : 154 ms QRS Dur : 086 ms QT Int : 390 ms P-R-T Axes : 030 004 020 degrees QTc Int : 444 ms Sinus rhythm with occasional Premature ventricular complexes Otherwise normal ECG When compared with ECG of 13-OCT-2020 16:55, Premature ventricular complexes are now Present Referred By: Generic ED Physician Electronically Signed By:CYNTHIA REN MD
[2020-10-25 21:33] VITALS: BP 154/92; PULSE 82; RESP 24; O2SAT 98
[2020-10-25 21:40] LABS: MANUAL DIFF FLAG NO
[2020-10-25 21:44] LABS: Basophils Percent Auto 0.2 % (0-2); Eosinophils Percent Auto 0.1 % (0-4); Hematocrit 40.4 % (37-47); Hemoglobin 13.5 g/dl (12.0-16.0); Imm Gran Abs Auto 0.19 X10*3/uL (0.00-0.03); Imm Gran Pct Auto 1.6 % (0.0-0.4); Lymphocytes Absolute Auto 1.7 X10*3/uL (1.2-4.9); Lymphocytes Percent Auto 14.4 % (20-40); Mean Corpuscular HGB Conc 33.4 g/dl (31.0-35.0); Mean Corpuscular Hemoglobin 29.7 pg (27.0-33.0); Mean Corpuscular Volume 88.8 fL (80-98); Mean Platelet Volume 8.4 fL (9.4-12.3); Monocytes Absolute Auto 0.4 X10*3/uL (0.1-1.2); Monocytes Percent Auto 2.9 % (2-11); Neutrophils Absolute Auto 9.7 X10*3/uL (2.0-8.3); Neutrophils Percent Auto 80.8 % (45-73); Platelet Count 233 X10*3/uL (160-400); Red Blood Count 4.55 X10*6/uL (4.20-5.50); Red Cell Distribution Width 13.2 % (11.0-16.0)
--- NOTE | 2020-10-25 21:50 | PC.NURSE ---
MD at bedside for primary eval. oven technician at bedside for EKG.
--- NOTE | 2020-10-25 21:54 | ED_ITS ---
HPI - SOB/Dyspnea General Chief Complaint: Dyspnea Stated Complaint: Covid + Time Seen by Provider: 10/25/20 21:33 Source: patient Mode of arrival: ambulatory Limitations: no limitations History of Present Illness HPI Narrative: 50-year-old female who presents emergency department for evaluation of chest pain, shortness of breath and dyspnea on exertion. The patient was diagnosed with COVID-19 pneumonia on 10/06/2020 (19 days prior to evaluation). The patient was admitted to this hospital from 10/14/2020 to for COVID 19 pneumonia with hypoxia, with O2 saturations as low as 84%. The patient was discharged home with home oxygen which she states she has continued to use. She states that over the past 2 days she has had increased shortness of breath and increased dyspnea on exertion. She states that she gets winded after walking approximately 10 ft. She also states that she has had constant, mid sternal chest pressure times 2-3 days which is worse with breathing and movement, the pain is 5/10 at its worst. She states that she has also had increased pain and swelling in her lower extremities. She contacted her doctor's office today and was advised to go to the emergency department for evaluation. She denied fever, chills, cough, nausea, vomiting. Related Data Home Medications Medication Instructions Recorded Confirmed aspirin 325 mg tablet See Rx Instructions .ROUTE .COMPLEX 06/22/20 10/16/20 cetirizine 10 mg tablet 10 mg PO DAILY 06/22/20 10/16/20 fluticasone propionate 230 2 puff INHALATION BID 06/22/20 10/16/20 mcg-salmeterol 21 mcg/actuation HFA inhaler gabapentin 300 mg capsule 300 mg PO BID 06/22/20 10/14/20 glipizide 5 mg tablet 5 mg PO BID 06/22/20 10/16/20 ibuprofen 600 mg tablet 600 mg PO Q8H PRN 06/22/20 10/16/20 insulin aspart U-100 100 unit/mL See Rx Instructions .ROUTE .COMPLEX 06/22/20 10/14/20 subcutaneous solution insulin glargine 100 unit/mL (3 64 unit SUBCUT BID 06/22/20 10/16/20 mL) subcutaneous pen metformin 1,000 mg tablet 1,000 mg PO BID 06/22/20 10/14/20 omeprazole 20 mg capsule,delayed 20 mg PO BID 06/22/20 10/14/20 release pravastatin 20 mg tablet 20 mg PO DAILY 06/22/20 10/14/20 Previous Rx's Medication Instructions Recorded albuterol sulfate [Ventolin HFA] 2 puff INHALATION Q4-6H PRN #1 ea 03/23/20 dexamethasone 6 mg PO DAILY #5 tab 10/09/20 fluticasone propionate 1 spray INTRANASAL BID 7 Days g 10/09/20 dexamethasone 6 mg PO DAILY #5 tab 10/18/20 Allergies Allergy/AdvReac Type Severity Reaction Status Date / Time adhesive tape [ADHESIVE TAPE] Allergy Intermediate BLISTERS Verified 03/17/20 17:31 tramadol [TRAMADOL] Allergy Intermediate NAUSEA & Verified 03/17/20 17:31 VOMITING, vomiting acetaminophen [Percocet] Allergy Unknown Unknown Verified 03/17/20 17:31 oxycodone [OXYCODONE] AdvReac Unknown ITCHING Verified 03/17/20 17:31 Adhesive tape Allergy Unknown Unknown Uncoded 03/17/20 17:31 adhesive tape Allergy Unknown Unknown Uncoded 03/17/20 17:31 Review of Systems Review of Systems: Yes all other systems are reviewed and are negative Neurologic: Reports Abnormal speech present [facility] Past Medical History [facility] Narrative: The patient denies tobacco use. She is a former smoker and quit 6 years prior and has a greater than 20 pack-year history of smoking. She states that she rarely drinks alcohol, she denies drug use. Medical History Asthma delivery delivered Cholecystectomy planned Depression Diabetes Hernia of abdominal wall High cholesterol HTN (hypertension) Tachycardia Surgical History H/O foot surgery Social History Social History Household Members: None Housing: Homeless Alcohol intake: never Smoking Status: Former smoker Tobacco Type: Cigarette Second Hand Smoke Exposure: No Substance Use Type: Marijuana Advance Directives: No Advance Directives Information Provided: No service: No Current occupational status: disabled Physical Exam Vital Signs: Vital Signs: Last Vital Signs Temp 98.6 F 10/25/20 19:28 Pulse 75 10/26/20 00:38 Resp 18 10/26/20 00:38 BP 155/70 H 10/25/20 23:01 Pulse Ox 99 10/26/20 00:38 Body Mass Index 42.9 Const: Other: Very pleasant and cooperative female, does not appear to be in distress, able to give a good history without any difficulty. Nutritional Appearance: overweight Orientation/consciousness: oriented to person and oriented to place Limitations: no limitations HENMT: Head: Yes normal to inspection, Yes normocephalic and Yes atraumatic Ears: external ears normal General nose exam: Normal external nose present Face and sinus: Yes normal facial exam Mouth: Normal oral and palatal mucosa present Throat: Yes posterior oropharynx normal Eyes: Periorbital: periorbital findings normal Eyelids: Yes eyelids normal Conjunctivae: conjunctivae normal Sclerae: sclerae normal Corneas: co rneas normal Pupils: Equal, round and reactive pupils present Direct Ophthalmoscopy: normal light reflex Neck: Neck: Yes full ROM, Yes no lymphadenopathy, Yes no meningeal signs, Yes trachea midline and Yes supple Chest: Chest palpation & inspection: normal inspection of the chest and normal palpation of entire chest wall Resp: Effort & Inspection: normal respiratory effort and able to speak in complete sentences Auscultation: clear to auscultation bilaterally Cardio: Rate: regular rate Rhythm: regular rhythm Heart sounds: S1 normal heart sound present, S2 normal heart sound present and no murmurs GI: Inspection: Yes normal to inspection Palpation (GI): Soft to palpation, nontender, no guarding, not rigid and No hepatosplenomegaly present Auscultation: normal bowel sounds : General: Yes no CVA tenderness Back/Spine/Pelvis: Back: no CVA tenderness Cervical Spine: normal cervical lordosis Thoracic/Lumbar Spine: thoracic and lumbar spine normal to inspection Skin: Lesions: no lesions Rashes: no rashes Wounds: no wounds Neuro: General: oriented to person, oriented to place and no meningeal signs Cranial nerves: Yes CN's II-XII intact bilaterally and Yes Equal, round and reactive pupils present Speech: Abnormal speech present Motor exam (neuro): 5/5 motor strength present throughout Extrem: General: Yes normal to inspection and Yes full ROM Psych: Appearance: well kempt Mental Status: mental status grossly normal Speech and movement: Normal speech and movement present Affect: normal affect Attitude: cooperative Thought process: Normal thought process present Thought content: Normal thought content present Course Course Course Narrative: 50-year-old female who tested positive for for COVID-19 approximately 19 days prior, had hospitalization for COVID-19 pneumonia with hypoxia and discharged 7 days prior who presents to the emergency department for evaluation of shortness of breath, dyspnea on exertion and chest pain times 2-3 days. Vital signs reveal that she was hypertensive with a blood pressure of 141/82, she was not tachycardic and her O2 saturation was 99 % on room air. P hysical examination was unremarkable. I did order a CBC, CMP, troponin, D- dimer, EKG and chest x-ray on this patient. 0207: The patient's laboratory evaluation revealed a slight [place] [address], elevated BUN of 33 and an elevated D-dimer of 206. Patient had a detectable but not elevated troponin of 5.2. The patient's chest x-ray did reveal increased bilateral interstitial infiltrates compared to her previous chest x-ray of 10/13/2020. CT pulmonary angiogram PE protocol revealed no evidence for pulmonary embolism. The patient had peripheral infiltrates bilaterally, the findings appear to be minimally worse compared to the prior study with areas of increased infiltrate in the upper lobes. Given these findings, I suspect that the patient has interstitial injury to her lungs secondary to the COVID-19 infection. I did discuss this with the patient and told her that she should get a pulse oximeter to use at home to determine if she needs to wear oxygen when she is exerting herself. I told her for pulse ox remains above 92% she should not wear oxygen since supplemental oxygen can cause toxicity. MDM - SOB/Dyspnea Lab Data Result diagrams: 10/25/20 21:35 10/25/20 21:35 Labs: Lab Results 10/25/20 10/25/20 10/25/20 Range/Units 21:35 21:35 21:35 WBC 12.0 H (4.8-10.8) X10*3/uL RBC 4.55 (4.20-5.50) X10*6/uL Hgb 13.5 (12.0-16.0) g/dl Hct 40.4 (37-47) % MCV 88.8 (80-98) fL MCH 29.7 (27.0-33.0) pg MCHC 33.4 (31.0-35.0) g/dl RDW 13.2 (11.0-16.0) % Plt Count 233 (160-400) X10*3/uL MPV 8.4 L (9.4-12.3) fL Immature Gran % (Auto) 1.6 H (0.0-0.4) % Neut % (Auto) 80.8 H (45-73) % Lymph % (Auto) 14.4 L (20-40) % [place] % (Auto) 2.9 (2-11) % Eos % (Auto) 0.1 (0-4) % Baso % (Auto) 0.2 (0-2) % Lymph # (Auto) 1.7 (1.2-4.9) X10*3/uL [place] # (Auto) 0.4 (0.1-1.2) X10*3/uL Eos # (Auto) 0.0 (0.0-0.4) X10*3/uL Baso # (Auto) 0.0 (0.0-0.2) X10*3/uL Abs Immat Gran (auto) 0.19 H (0.00-0.03) X10*3/uL Absolute Neuts (auto) 9.7 H (2.0-8.3) X10*3/uL Absolute Nucleated RBC 0.000 (0.0-0.012) X10*3/uL Nucleated RBC % (auto) 0.0 (0.0-0.2) /100WBC D-Dimer 208 NG/ML Hold Blue Top SEE NOTE Sodium 141 (135-145) mmol/L Potassium 4.1 (3.3-5.1) mmol/L Chloride 108 (96-108) mmol/L Carbon Dioxide 22 (22-29) mmol/L Anion Gap 15 (12-20) BUN 33 H (9-16) mg/dL Creatinine 0.69 (0.5-1.4) mg/dL Estim Creat Clear Calc 117.6 Estimated GFR > 60 Random Glucose 99 D (60-115) mg/dL Calcium 8.7 D (8.4-10.2) mg/dL Troponin I High Sens (<3.5-17.0) ng/L B-Natriuretic Peptide (<100) pg/mL COVID-19 ([facility]) (Negative) COVID-19 Clin Com 10/25/20 10/25/20 Range/Units 21:35 21:35 WBC (4.8-10.8) X10*3/uL RBC (4.20-5.50) X10*6/uL Hgb (12.0-16.0) g/dl Hct (37-47) % MCV (80-98) fL MCH (27.0-33.0) pg MCHC (31.0-35.0) g/dl RDW (11.0-16.0) % Plt Count (160-400) X10*3/uL MPV (9.4-12.3) fL Immature Gran % (Auto) (0.0-0.4) % Neut % (Auto) (45-73) % Lymph % (Auto) (20-40) % [place] % (Auto) (2-11) % Eos % (Auto) (0-4) % Baso % (Auto) (0-2) % Lymph # (Auto) (1.2-4.9) X10*3/uL [place] # (Auto) (0.1-1.2) X10*3/uL Eos # (Auto) (0.0-0.4) X10*3/uL Baso # (Auto) (0.0-0.2) X10*3/uL Abs Immat Gran (auto) (0.00-0.03) X10*3/uL Absolute Neuts (auto) (2.0-8.3) X10*3/uL Absolute Nucleated RBC (0.0-0.012) X10*3/uL Nucleated RBC % (auto) (0.0-0.2) /100WBC D-Dimer NG/ML Hold Blue Top Sodium (135-145) mmol/L Potassium (3.3-5.1) mmol/L Chloride (96-108) mmol/L Carbon Dioxide (22-29) mmol/L Anion Gap (12-20) BUN (9-16) mg/dL Creatinine (0.5-1.4) mg/dL Estim Creat Clear Calc Estimated GFR Random Glucose (60-115) mg/dL Calcium (8.4-10.2) mg/dL Troponin I High Sens 5.2 (<3.5-17.0) ng/L B-Natriuretic Peptide 22 (<100) pg/mL COVID-19 ([facility]) Negative (Negative) COVID-19 Clin Com See Note ECG Data Attestation: I personally reviewed and interpreted this ECG as follows: Interpretation: 2200: Normal sinus rhythm rate of 78, occasional PVC, normal [place], QRS and QTC intervals, inverted T-wave in lead 3 and V1, no Q- waves, no ST segment elevation or depression. No old EKG for comparison. Discharge Plan Discharge Clinical Impression: Acute dyspnea Patient Disposition: Home, Self-Care Additional Instructions: Your chest x-ray did reveal increased infiltrate in your lungs compared to the chest x-ray when your admitted to the hospital. The CT scan of your chest with IV contrast did not reveal any blood clots in your lungs which is reassuring The CT scan also revealed increased infiltrate in your lungs compared to the previous CT scan of your chest. My impression is that these increased infiltrate are part of the COVID-19 pneumonia process and hopefully they will get better over time. Your oxygen level here in the emergency department on room air was 96% which is reassuring. You should get a pulse oximeter at home and if your oxygen level is above 92% then you should not wear supplemental oxygen since supplemental oxygen can sometimes cause damage to your lungs. If you notice that your O2 saturation drops below 92% when you are exerting yourself then you should wear oxygen only with exertion. Follow-up with your doctor in 2 days. Please return to the emergency department if your symptoms get worse or if you develop any symptoms that are concerning to you. Prescriptions: No Action albuterol sulfate [Ventolin HFA] 90 mcg/actuation HFA aerosol inhaler 2 puff inhalation Q4-6H PRN (Reason: shortness of breath or wheezing) Qty: 1 RF: 0 fluticasone propionate 50 mcg/actuation [place],Suspension 1 spray intranasal BID 7 Days RF: 0 dexamethasone 6 mg tablet 6 mg PO DAILY Qty: 5 RF: 0 dexamethasone 6 mg tablet 6 mg PO DAILY Qty: 5 RF: 0 insulin aspart U-100 100 unit/mL solution See Rx Instructions .ROUTE .COMPLEX RF: 0 omeprazole 20 mg capsule,delayed release(DR/EC) 20 mg PO BID RF: 0 metformin 1,000 mg tablet 1,000 mg PO BID RF: 0 gabapentin 300 mg capsule 300 mg PO BID RF: 0 glipizide 5 mg tablet 5 mg PO BID RF: 0 aspirin 325 mg tablet See Rx Instructions .ROUTE .COMPLEX RF: 0 ibuprofen 600 mg tablet 600 mg PO Q8H PRN (Reason: pain) RF: 0 cetirizine 10 mg tablet 10 mg PO DAILY RF: 0 insulin glargine 100 unit/mL (3 mL) insulin pen 64 unit subcut BID RF: 0 fluticasone propion-salmeterol 230-21 mcg/actuation HFA aerosol inhaler 2 puff inhalation BID RF: 0 pravastatin 20 mg tablet 20 mg PO DAILY RF: 0
[2020-10-25 21:56] LABS: COVID-19 Test Negative (Negative)
[2020-10-25 22:00] LABS: Anion Gap 15 (12-20); Blood Urea Nitrogen 33 mg/dL (9-16); Calcium 8.7 mg/dL (8.4-10.2); Carbon Dioxide 22 mmol/L (22-29); Chloride 108 mmol/L (96-108); Creatinine Clr Calc Pharmacy 117.6; Estimated Glomerular Filt Rate > 60; Glucose Random 99 mg/dL (60-115); Potassium 4.1 mmol/L (3.3-5.1); Sodium 141 mmol/L (135-145)
[2020-10-25 22:06] LABS: B Type Natriuretic Peptide 22 pg/mL (<100); Troponin-I High Sensitivity 5.2 ng/L (<3.5-17.0)
[2020-10-25 22:21] LABS: D Dimer 208 NG/ML
[2020-10-25 23:01] VITALS: BP 155/70; PULSE 76; RESP 24; O2SAT 97
--- NOTE | 2020-10-25 23:47 | PC.NURSE ---
Pt ambulating to CT with a walker and a steady gait. Pt on O2 for the transfer, denies SOB while ambulating.
[2020-10-25] MEDS: iohexoL 350 MG/ML 100 ML INFUS..BTL 65 ML IV (23:58)
[2020-10-26 00:38] VITALS: PULSE 75; RESP 18; O2SAT 99
[2020-10-26 02:22] VITALS: BP 132/77; PULSE 82; RESP 18; O2SAT 98
== END 2020-10-26 02:33 | disposition home or self-care (01) ==
PROVIDERS: Emergency Provider Emergency Medicine Emergency Medical Services
DX: R06.00 Dyspnea, unspecified (principal); Z20.822 Contact with and (suspected) exposure to COVID-19; E11.9 Type 2 diabetes mellitus without complications; I10 Essential (primary) hypertension; E78.5 Hyperlipidemia, unspecified; J45.909 Unspecified asthma, uncomplicated; F12.90 Cannabis use, unspecified, uncomplicated; Z87.01 Personal history of pneumonia (recurrent); Z87.891 Personal history of nicotine dependence; Z79.899 Other long term (current) drug therapy; Z79.82 Long term (current) use of aspirin; Z79.4 Long term (current) use of insulin; Z79.02 Long term (current) use of antithrombotics/antiplatelets
CPT/HCPCS: 36415; 71045; 71275; 80048; 83880; 84484; 85025; 85379; 87635; 93005; 99284; Q9967

== ENCOUNTER 2020-11-04 20:31 | Inpatient (IN) | payer OTHER, SELFPAY ==
--- NOTE | ~2020-11-04 | CT_ITS ---
EXAMINATION: CT ANGIOGRAM OF THE CHEST WITH AND WITHOUT CONTRAST (CT PULMONARY ANGIOGRAM FOR PE) CLINICAL INFORMATION: Reason for Exam dyspnea, elevated ddimer r/o PE COMPARISON: 10/25/2020 TECHNIQUE: Prior to contrast administration, noncontrast localization images were obtained. Subsequently, multidetector volumetric imaging was performed from the thoracic inlet to below the diaphragms following the administration of 65 mL Omnipaque 350 intravenous contrast. No contrast reaction reported Sagittal, coronal, and MIP oblique sagittal reformatted images were obtained on the CT workstation, uploaded to PACS, and reviewed. This CT examination was performed using dose optimization techniques as appropriate, variously including the following: *Automated exposure control *Adjustment of mA and/or kV according to patient size (this includes techniques or standardized protocols for targeted exams where dose is matched to indication/reason for exam; i.e. extremities or head) *Use of iterative reconstruction technique Total exam dose-length product 384 mGy-cm FINDINGS: QUALITY OF STUDY/CONTRAST BOLUS: Satisfactory. PULMONARY ARTERIES: No central or segmental pulmonary emboli. Limited assessment of the distal vasculature due to patient body habitus and some respiratory motion artifact. THORACIC AORTA: No aneurysm or dissection. There is scattered calcification along the descending aorta. LUNG: There are moderately extensive multifocal regions of groundglass opacity bilaterally, increased from prior study of 10/25/2020. PLEURA: No significant pleural effusion or pneumothorax. MEDIASTINUM: Thyroid gland appears mildly heterogeneous. Multiple scattered lymph nodes throughout the mediastinum, some of which are near the upper limits of normal in size. Cardiac size is within normal limits; no pericardial effusion. No evidence of septal bowing or right heart strain. CHEST WALL/AXILLA: No axillary or internal mammary lymphadenopathy. OSSEOUS STRUCTURES: No acute or suspicious osseous abnormality. UPPER ABDOMEN: Partially visualized liver and spleen are again noted to be prominent in size. No reflux of contrast into the hepatic veins to suggest elevated right heart pressures. CT/CT angio chest PE protocol IMPRESSION: 1. No pulmonary embolus identified, though assessment of the distal vasculature is suboptimal. 2. Moderately extensive bilateral groundglass opacities, worsened since 10/25/2020. This may reflect worsening manifestations of Covid pneumonia. Alternatively, pulmonary edema can also have this appearance. VTE: negative
--- NOTE | ~2020-11-04 | XR_ITS ---
EXAMINATION: XR CHEST CLINICAL INFORMATION: Dyspnea COMPARISON: Previous chest x-ray and chest CT 10/25/2020 TECHNIQUE: Frontal view of the chest was obtained. FINDINGS: The cardiac and mediastinal contours are stable. There are bilateral mixed interstitial and alveolar infiltrates seen diffusely throughout the lungs. This is increased compared to previous exams most recent Oct 25 2020. There is no pleural effusion or pneumothorax. Bony structures are unremarkable. XR/XR chest 1V IMPRESSION: Increasing bilateral infiltrates compared to recent exams.
--- NOTE | 2020-11-04 20:37 | ECG_ITS ---
Test Reason : SOB Blood Pressure : / mmHG Vent. Rate : 112 BPM Atrial Rate : 112 BPM P-R Int : 138 ms QRS Dur : 088 ms QT Int : 330 ms P-R-T Axes : 039 009 014 degrees QTc Int : 450 ms Sinus tachycardia Otherwise normal EKG When compared with ECG of 25-OCT-2020 22:01, Premature ventricular complexes are no longer Present Referred By: Matilda Amor Electronically Signed By:RAJI PATEL
--- NOTE | 2020-11-04 20:39 | ED.ASTHMA ---
HPI - Asthma General Chief Complaint: Dyspnea Stated Complaint: SOB Time Seen by Provider: 11/04/20 20:36 Source: patient and old records reviewed Mode of arrival: ambulatory Limitations: no limitations History of Present Illness HPI Narrative: 50 yo female with hx of asthma COVID back at the start of October now O2 dependent now comes with c/o feeling weak, dizzy and short of breath, compliant with her 2L NC came in sats 91% MD complaint: asthma attack and shortness of breath Onset (ago): day(s) (2) Severity: moderate Context: recent URI Associated symptoms: productive cough Treatments Prior to Arrival: inhaled bronchodilator and oxygen Related Data Home Medications Medication Instructions Recorded Confirmed cetirizine 10 mg tablet 10 mg PO DAILY 06/22/20 11/05/20 glipizide 5 mg tablet 5 mg PO BID 06/22/20 11/05/20 ibuprofen 600 mg tablet 600 mg PO Q8H PRN 06/22/20 11/05/20 insulin aspart U-100 100 unit/mL See Rx Instructions .ROUTE .COMPLEX 06/22/20 11/05/20 subcutaneous solution insulin glargine 100 unit/mL (3 64 unit SUBCUT BID 06/22/20 11/05/20 mL) subcutaneous pen metformin 1,000 mg tablet 1,000 mg PO BID 06/22/20 11/05/20 omeprazole 20 mg capsule,delayed 20 mg PO BID 06/22/20 11/05/20 release pravastatin 20 mg tablet 20 mg PO DAILY 06/22/20 11/05/20 aspirin [Aspirin Low Dose] 81 mg PO DAILY 11/05/20 11/05/20 gabapentin 600 mg PO BID 11/05/20 11/05/20 Previous Rx's Medication Instructions Recorded albuterol sulfate [Ventolin HFA] 2 puff INHALATION Q4-6H PRN #1 ea 03/23/20 fluticasone propionate 1 spray INTRANASAL BID 7 Days g 10/09/20 Allergies Allergy/AdvReac Type Severity Reaction Status Date / Time adhesive tape [ADHESIVE TAPE] Allergy Intermediate BLISTERS Verified 11/04/20 20:44 tramadol [TRAMADOL] Allergy Intermediate NAUSEA & Verified 11/04/20 20:44 VOMITING, vomiting oxycodone [OXYCODONE] AdvReac Unknown ITCHING Verified 11/04/20 20:44 Adhesive tape Allergy Unknown Unknown Uncoded 03/17/20 17:31 adhesive tape Allergy Unknown Unknown Uncoded 03/17/20 17:31 Review of Systems Review of Systems: Constitutional : No Fever, No Chills ENT/Mouth : No sore throat, No Rhinorrhea, No Swallowing Difficulty Eyes: No Eye Pain, No Swelling, No Redness Cardiovascular : No Chest Pain, positive SOB, No Orthopnea, no Edema Respiratory : pos Cough, pos Sputum, pos Wheezing, positive dyspnea Gastrointestinal : No Nausea, No Vomiting, No Diarrhea, No abdominal Pain, No Hematochezia, No Melena Genitourinary : No Dysuria, No Urinary Frequency, No Hematuria Musculoskeletal : No joint pain, No Myalgias Skin : No Skin Lesions, No rash Neuro : No Weakness, No Numbness, pos Dizziness, No Headache Psych : No Anxiety/Panic, No Depression Heme/Lymph: No Bruising, No Lymphadenopathy Endocrine : No Polyuria, No Polydipsia All other systems reviewed and are negative PMFSH Past Medical History Attestation statement: The following information was validated with the patient. Medical History Asthma delivery delivered Cholecystectomy planned COVID-19 Depression Diabetes Hernia of abdominal wall High cholesterol HTN (hypertension) Tachycardia Surgical History H/O foot surgery Social History Social History Household Members: None Housing: Homeless Alcohol intake: never Smoking Status: Former smoker Tobacco Type: Cigarette Second Hand Smoke Exposure: No Use of substances other than those prescribed or required for medical reasons: No Substance Use Type: Marijuana Advance Directives: No Advance Directives Information Provided: Yes service: No Current occupational status: disabled Physical Exam Vital Signs: Vital Signs: Last Vital Signs Temp 99 F 11/04/20 22:14 Pulse 111 H 11/04/20 22:14 Resp 20 11/04/20 22:14 BP 126/63 11/04/20 22:14 Pulse Ox 93 11/04/20 22:14 Oxygen Flow Rate 2 11/04/20 20:45 Body Mass Index 45.8 Appearance: Alert. Oriented X3. Mild acute distress. Eyes: Pupils equal, round and reactive to light. ENT: Pharynx normal. Neck: Normal inspection. Neck supple. CVS: tachycardic heart rate and rhythm. Pulses normal. Respiratory: Mild respiratory distress tachypnea and retractions. Breath sounds diminished throughout Abdomen: Soft and nontender. Skin: Skin warm and dry. Normal skin color. Normal skin turgor. Extremities: No lower extremity edema. No calf ttp Neuro: Oriented X 3. No motor deficit. No sensory deficit. Course Course Course Narrative: will admit for further workup MDM - Asthma MDM Narrative Medical decision making narrative: 50 yo female with hx of asthma COVID back at the start of October now O2 dependent now comes with c/o feeling weak, dizzy and short of breath, compliant with her 2L NC came in sats 91% at this time will need neb treatments, EKG, CXR, IV steroids, ddimer, dispo per results and findings. Lab Data Result diagrams: 11/04/20 22:09 11/04/20 21:12 Labs: Lab Results 11/04/20 11/04/20 11/04/20 Range/Units 21:12 21:12 21:12 WBC (4.8-10.8) X10*3/uL RBC (4.20-5.50) X10*6/uL Hgb (12.0-16.0) g/dl Hct (37-47) % MCV (80-98) fL MCH (27.0-33.0) pg MCHC (31.0-35.0) g/dl RDW (11.0-16.0) % Plt Count (160-400) X10*3/uL MPV (9.4-12.3) fL Immature Gran % (Auto) (0.0-0.4) % Neut % (Auto) (45-73) % Lymph % (Auto) (20-40) % Cross % (Auto) (2-11) % Eos % (Auto) (0-4) % Baso % (Auto) (0-2) % Lymph # (Auto) (1.2-4.9) X10*3/uL Cross # (Auto) (0.1-1.2) X10*3/uL Eos # (Auto) (0.0-0.4) X10*3/uL Baso # (Auto) (0.0-0.2) X10*3/uL Abs Immat Gran (auto) (0.00-0.03) X10*3/uL Absolute Neuts (auto) (2.0-8.3) X10*3/uL Absolute Nucleated RBC (0.0-0.012) X10*3/uL Nucleated RBC % (auto) (0.0-0.2) /100WBC D-Dimer NG/ML Hold Blue Top VBG pH (7.32-7.43) VBG pCO2 mmHg VBG pO2 mmHg VBG HCO3 (22-26) mmol/L VBG O2 Saturation % VBG Base Excess mmol/L Sodium 141 (135-145) mmol/L Potassium 5.1 D (3.3-5.1) mmol/L Chloride 106 (96-108) mmol/L Carbon Dioxide 24 (22-29) mmol/L Anion Gap 16 (12-20) BUN 23 H (9-16) mg/dL Creatinine 0.76 (0.5-1.4) mg/dL Estim Creat Clear Calc 111.0 Estimated GFR > 60 Random Glucose 206 H D (60-115) mg/dL Lactic Acid (0.5-2.0) mmol/L Calcium 8.3 L (8.4-10.2) mg/dL Magnesium 2.0 (1.6-2.6) mg/dL Total Bilirubin 0.7 (0.0-1.0) mg/dL Direct Bilirubin 0.2 (0.0-0.5) mg/dL AST 25 D (5-31) U/L ALT 30 (0-31) U/L Alkaline Phosphatase 165 H (39-117) U/L Troponin I High Sens (<3.5-17.0) ng/L B-Natriuretic Peptide 29 (<100) pg/mL Total Protein 6.2 L (6.5-8.0) g/dL Albumin 3.1 L (3.5-5.0) g/dL COVID-19 ([facility]) Negative (Negative) COVID-19 Clin Com See Note 11/04/20 11/04/20 11/04/20 Range/Units 21:12 21:12 21:12 WBC (4.8-10.8) X10*3/uL RBC (4.20-5.50) X10*6/uL Hgb (12.0-16.0) g/dl Hct (37-47) % MCV (80-98) fL MCH (27.0-33.0) pg MCHC (31.0-35.0) g/dl RDW (11.0-16.0) % Plt Count (160-400) X10*3/uL MPV (9.4-12.3) fL Immature Gran % (Auto) (0.0-0.4) % Neut % (Auto) (45-73) % Lymph % (Auto) (20-40) % Cross % (Auto) (2-11) % Eos % (Auto) (0-4) % Baso % (Auto) (0-2) % Lymph # (Auto) (1.2-4.9) X10*3/uL Cross # (Auto) (0.1-1.2) X10*3/uL Eos # (Auto) (0.0-0.4) X10*3/uL Baso # (Auto) (0.0-0.2) X10*3/uL Abs Immat Gran (auto) (0.00-0.03) X10*3/uL Absolute Neuts (auto) (2.0-8.3) X10*3/uL Absolute Nucleated RBC (0.0-0.012) X10*3/uL Nucleated RBC % (auto) (0.0-0.2) /100WBC D-Dimer NG/ML Hold Blue Top SEE NOTE VBG pH (7.32-7.43) VBG pCO2 mmHg VBG pO2 mmHg VBG HCO3 (22-26) mmol/L VBG O2 Saturation % VBG Base Excess mmol/L Sodium (135-145) mmol/L Potassium (3.3-5.1) mmol/L Chloride (96-108) mmol/L Carbon Dioxide (22-29) mmol/L Anion Gap (12-20) BUN (9-16) mg/dL Creatinine (0.5-1.4) mg/dL Estim Creat Clear Calc Estimated GFR Random Glucose (60-115) mg/dL Lactic Acid 2.0 (0.5-2.0) mmol/L Calcium (8.4-10.2) mg/dL Magnesium Cancelled (1.6-2.6) mg/dL Total Bilirubin Cancelled (0.0-1.0) mg/dL Direct Bilirubin Cancelled (0.0-0.5) mg/dL AST Cancelled (5-31) U/L ALT Cancelled (0-31) U/L Alkaline Phosphatase Cancelled (39-117) U/L Troponin I High Sens (<3.5-17.0) ng/L B-Natriuretic Peptide (<100) pg/mL Total Protein Cancelled (6.5-8.0) g/dL Albumin Cancelled (3.5-5.0) g/dL COVID-19 ([facility]) (Negative) COVID-19 Clin Com 11/04/20 11/04/20 11/04/20 Range/Units 21:17 22:09 22:09 WBC 5.7 (4.8-10.8) X10*3/uL RBC 3.62 L D (4.20-5.50) X10*6/uL Hgb 10.7 L D (12.0-16.0) g/dl Hct 33.1 L (37-47) % MCV 91.4 (80-98) fL MCH 29.6 (27.0-33.0) pg MCHC 32.3 (31.0-35.0) g/dl RDW 13.2 (11.0-16.0) % Plt Count 178 (160-400) X10*3/uL MPV 8.7 L (9.4-12.3) fL Immature Gran % (Auto) 0.5 H (0.0-0.4) % Neut % (Auto) 65.0 (45-73) % Lymph % (Auto) 27.1 (20-40) % Cross % (Auto) 5.8 (2-11) % Eos % (Auto) 1.4 (0-4) % Baso % (Auto) 0.2 (0-2) % Lymph # (Auto) 1.5 (1.2-4.9) X10*3/uL Cross # (Auto) 0.3 (0.1-1.2) X10*3/uL Eos # (Auto) 0.1 (0.0-0.4) X10*3/uL Baso # (Auto) 0.0 (0.0-0.2) X10*3/uL Abs Immat Gran (auto) 0.03 (0.00-0.03) X10*3/uL Absolute Neuts (auto) 3.7 (2.0-8.3) X10*3/uL Absolute Nucleated RBC 0.000 (0.0-0.012) X10*3/uL Nucleated RBC % (auto) 0.0 (0.0-0.2) /100WBC D-Dimer NG/ML Hold Blue Top VBG pH 7.40 (7.32-7.43) VBG pCO2 48 mmHg VBG pO2 50 mmHg VBG HCO3 30 H (22-26) mmol/L VBG O2 Saturation 78.0 % VBG Base Excess 5.2 mmol/L Sodium (135-145) mmol/L Potassium (3.3-5.1) mmol/L Chloride (96-108) mmol/L Carbon Dioxide (22-29) mmol/L Anion Gap (12-20) BUN (9-16) mg/dL Creatinine (0.5-1.4) mg/dL Estim Creat Clear Calc Estimated GFR Random Glucose (60-115) mg/dL Lactic Acid (0.5-2.0) mmol/L Calcium (8.4-10.2) mg/dL Magnesium (1.6-2.6) mg/dL Total Bilirubin (0.0-1.0) mg/dL Direct Bilirubin (0.0-0.5) mg/dL AST (5-31) U/L ALT (0-31) U/L Alkaline Phosphatase (39-117) U/L Troponin I High Sens < 3.5 (<3.5-17.0) ng/L B-Natriuretic Peptide (<100) pg/mL Total Protein (6.5-8.0) g/dL Albumin (3.5-5.0) g/dL COVID-19 ([facility]) (Negative) COVID-19 Clin Com 11/04/20 Range/Units 22:09 WBC (4.8-10.8) X10*3/uL RBC (4.20-5.50) X10*6/uL Hgb (12.0-16.0) g/dl Hct (37-47) % MCV (80-98) fL MCH (27.0-33.0) pg MCHC (31.0-35.0) g/dl RDW (11.0-16.0) % Plt Count (160-400) X10*3/uL MPV (9.4-12.3) fL Immature Gran % (Auto) (0.0-0.4) % Neut % (Auto) (45-73) % Lymph % (Auto) (20-40) % Cross % (Auto) (2-11) % Eos % (Auto) (0-4) % Baso % (Auto) (0-2) % Lymph # (Auto) (1.2-4.9) X10*3/uL Cross # (Auto) (0.1-1.2) X10*3/uL Eos # (Auto) (0.0-0.4) X10*3/uL Baso # (Auto) (0.0-0.2) X10*3/uL Abs Immat Gran (auto) (0.00-0.03) X10*3/uL Absolute Neuts (auto) (2.0-8.3) X10*3/uL Absolute Nucleated RBC (0.0-0.012) X10*3/uL Nucleated RBC % (auto) (0.0-0.2) /100WBC D-Dimer 499 NG/ML Hold Blue Top VBG pH (7.32-7.43) VBG pCO2 mmHg VBG pO2 mmHg VBG HCO3 (22-26) mmol/L VBG O2 Saturation % VBG Base Excess mmol/L Sodium (135-145) mmol/L Potassium (3.3-5.1) mmol/L Chloride (96-108) mmol/L Carbon Dioxide (22-29) mmol/L Anion Gap (12-20) BUN (9-16) mg/dL Creatinine (0.5-1.4) mg/dL Estim Creat Clear Calc Estimated GFR Random Glucose (60-115) mg/dL Lactic Acid (0.5-2.0) mmol/L Calcium (8.4-10.2) mg/dL Magnesium (1.6-2.6) mg/dL Total Bilirubin (0.0-1.0) mg/dL Direct Bilirubin (0.0-0.5) mg/dL AST (5-31) U/L ALT (0-31) U/L Alkaline Phosphatase (39-117) U/L Troponin I High Sens (<3.5-17.0) ng/L B-Natriuretic Peptide (<100) pg/mL Total Protein (6.5-8.0) g/dL Albumin (3.5-5.0) g/dL COVID-19 ([facility]) (Negative) COVID-19 Clin Com ECG Data Attestation: I personally reviewed and interpreted this ECG as follows: ECG interpretation date: 11/04/20 ECG interpretation time: 21:47 Interpretation: Rate: 112 Rhythm: sinus tachycardia [place]: normal Normal P waves. Normal OBIE. Normal QRS complex. ST T wave : no ABIODUN, normal qTC: normal prior studies: no acute ischemia The study has been interpreted contemporaneously by me. . Critical Care Time Critical Care Time Critical Care Time: Yes Total Critical Care Time: 30 Attestation: hour long neb, IV steroids, review of records I attest to this time spent taking care of the patient Discharge Plan Discharge Clinical Impression: Pulmonary infiltrate Asthma with exacerbation Qualifiers: Asthma severity: moderate Asthma persistence: persistent Qualified Code(s): J45.41 - Moderate persistent asthma with (acute) exacerbation Patient Disposition: Admitted As Inpatient
[2020-11-04 20:45] VITALS: BP 140/71; PULSE 105; RESP 20; O2SAT 97; BMI 45.8
[2020-11-04 20:55] VITALS: PULSE 105; O2SAT 96
[2020-11-04] MEDS: Acetaminophen 325 MG TABLET 650 MG PO (21:18)
[2020-11-04] MEDS: methylPREDNISolone Sod Succ 125 MG/2 ML VIAL IVPUSH (21:21)
[2020-11-04 21:22] VITALS: BP 123/60; PULSE 112; RESP 26
[2020-11-04 21:27] LABS: Venous Blood Gas Refer to POC result
[2020-11-04 21:27] LABS: VBG Base Excess 5.2 mmol/L; VBG HCO3 30 mmol/L (22-26); VBG pCO2 48 mmHg; VBG pO2 50 mmHg
[2020-11-04 22:01] LABS: B Type Natriuretic Peptide 29 pg/mL (<100)
[2020-11-04 22:05] LABS: COVID-19 Test Negative (Negative)
[2020-11-04 22:10] LABS: Alanine Aminotransferase 30 U/L (0-31); Albumin Level 3.1 g/dL (3.5-5.0); Alkaline Phosphatase 165 U/L (39-117); Anion Gap 16 (12-20); Aspartate Amino Transferase 25 U/L (5-31); Bilirubin Direct 0.2 mg/dL (0.0-0.5); Bilirubin Total 0.7 mg/dL (0.0-1.0); Blood Urea Nitrogen 23 mg/dL (9-16); Calcium 8.3 mg/dL (8.4-10.2); Carbon Dioxide 24 mmol/L (22-29); Chloride 106 mmol/L (96-108); Estimated Glomerular Filt Rate > 60; Glucose Random 206 mg/dL (60-115); Potassium 5.1 mmol/L (3.3-5.1); Sodium 141 mmol/L (135-145); Total Protein 6.2 g/dL (6.5-8.0)
[2020-11-04 22:14] VITALS: BP 126/63; PULSE 111; RESP 20; TEMP 37.2; O2SAT 93
[2020-11-04 22:18] LABS: Basophils Percent Auto 0.2 % (0-2); Eosinophils Absolute Auto 0.1 X10*3/uL (0.0-0.4); Eosinophils Percent Auto 1.4 % (0-4); Hematocrit 33.1 % (37-47); Hemoglobin 10.7 g/dl (12.0-16.0); Imm Gran Abs Auto 0.03 X10*3/uL (0.00-0.03); Imm Gran Pct Auto 0.5 % (0.0-0.4); Lymphocytes Absolute Auto 1.5 X10*3/uL (1.2-4.9); Lymphocytes Percent Auto 27.1 % (20-40); Mean Corpuscular HGB Conc 32.3 g/dl (31.0-35.0); Mean Corpuscular Hemoglobin 29.6 pg (27.0-33.0); Mean Corpuscular Volume 91.4 fL (80-98); Mean Platelet Volume 8.7 fL (9.4-12.3); Monocytes Absolute Auto 0.3 X10*3/uL (0.1-1.2); Monocytes Percent Auto 5.8 % (2-11); Neutrophils Absolute Auto 3.7 X10*3/uL (2.0-8.3); Platelet Count 178 X10*3/uL (160-400); Red Blood Count 3.62 X10*6/uL (4.20-5.50); Red Cell Distribution Width 13.2 % (11.0-16.0); White Blood Count 5.7 X10*3/uL (4.8-10.8)
[2020-11-04 22:25] LABS: D Dimer 499 NG/ML
[2020-11-04 22:55] LABS: Troponin-I High Sensitivity < 3.5 ng/L (<3.5-17.0)
[2020-11-04] MEDS: cefEPime HCl 2 GM in 0.9 % Sodium Chloride 50 ML IV (23:58)
--- NOTE | 2020-11-05 | ECG_ITS ---
Test Reason : PALPITATIONS Blood Pressure : / mmHG Vent. Rate : 088 BPM Atrial Rate : 088 BPM P-R Int : 156 ms QRS Dur : 092 ms QT Int : 350 ms P-R-T Axes : 046 017 037 degrees QTc Int : 423 ms Normal sinus rhythm Normal ECG No previous ECGs available Referred By: Rehan Felipe Electronically Signed By:RAJI PATEL
[2020-11-05] MEDS: Morphine Sulfate 4 MG/ML CARTRIDGE IVPUSH (00:49)
[2020-11-05] MEDS: vancomycin HCL 1,500 MG in 0.9 % Sodium Chloride 500 ML 333.33 MG IV (00:49)
[2020-11-05] MEDS: iohexoL 350 MG/ML 100 ML INFUS..BTL 65 ML IV (01:02)
[2020-11-05 02:43] LABS: Procalcitonin 0.11 ng/mL
[2020-11-05 02:47] LABS: Adenovirus PCR Not Detected (Not Detect.); Bordetella parapertussis PCR Not Detected (Not Detect.); Bordetella pertussis PCR Not Detected (Not Detect.); Chlamydia pneumoniae PCR Not Detected (Not Detect.); Coronavirus 229E PCR Not Detected (Not Detect.); Coronavirus HKU1 PCR Not Detected (Not Detect.); Coronavirus NL63 PCR Not Detected (Not Detect.); Coronavirus OC43 PCR Not Detected (Not Detect.); Human metapneumovirus PCR Not Detected (Not Detect.); Influenza A PCR Not Detected (Not Detect.); Influenza B PCR Not Detected (Not Detect.); Mycoplasma pneumoniae PCR Not Detected (Not Detect.); Parainfluenza 1 PCR Not Detected (Not Detect.); Parainfluenza 2 PCR Not Detected (Not Detect.); Parainfluenza 3 PCR Not Detected (Not Detect.); Parainfluenza 4 PCR Not Detected (Not Detect.); RSV PCR Not Detected (Not Detect.); Rhino/Enterovirus PCR Not Detected (Not Detect.); SARS-CoV-2 PCR Not Detected (Not Detect.)
[2020-11-05] MEDS: Azithromycin 500 MG in 0.9 % Sodium Chloride 250 ML 125 MG IV (03:27)
[2020-11-05] MEDS: Enoxaparin Sodium 40 MG/0.4 ML SYRINGE SUBCUT (03:27)
[2020-11-05 03:39] LABS: Glucose, Whole Blood 301 mg/dL (60-115)
[2020-11-05] MEDS: Ibuprofen 400 MG TABLET PO (05:54)
[2020-11-05] MEDS: cefTRIAXone sodium 1 GM in 0.9 % Sodium Chloride 50 ML IV (05:55)
--- NOTE | 2020-11-05 05:58 | PM.IMHP ---
History of Present Illness Date of Service: 11/05/20 Chief Complaint: shortness of breath This is a 50-year-old female with past medical history of asthma, COVID-19 in September on 2 L of oxygen, depression, diabetes, HLD, HTN, who presents to the hospital with complaints of difficulty breathing for the past few days. Patient reports that she was using her 2 L of oxygen as well as well as her breathing treatment with no improvement of her symptoms. She is feeling weak, dizzy, significantly short of breath on minimal exertion, cough with no sputum production, denies any fever, no chills. she is feeling stabbing pain in the middle of her chest that feels like her usual heartburn, intermittent, lasting about 5 minutes and resolving spontaneously. She reports palpitations. She reports left upper quadrant abdominal pain for the past 2 days that is also intermittent with no diarrhea, some nausea with no vomiting. He reports chronic swelling in her legs and chronic pain. She is also complaining of headache all over her head, she reports history of migraine but reports that was long time ago. Denies any change in vision, no urinary symptoms. No numbness weakness or tingling. To the ED patient has vitals of temp 99?, heart rate of 105, respiratory rate of 20, blood pressure of 140/71, satting 97% on 2 L of oxygen Who ulcers significant for WBC count of 5.7, hemoglobin of 10.7, pH of 7.4, pCO2 48, BUN of 23, creatinine of 0.76, lactic acid of 2.0, alk-phos of 165, albumin of 3.1, COVID-19 negative, BNP negative. Chest CT angiogram shows no pulmonary emboli, moderately extensive bilateral ground-glass opacities worsened since 10/25/2020. This may reflect worsening manifestation of COVID pneumonia. Past medical history as below on confirmed as patient Review of Systems Review of Systems: Yes all other systems are reviewed and are negative [facility] Medical History Asthma delivery delivered Cholecystectomy planned COVID-19 Depression Diabetes Hernia of abdominal wall High cholesterol HTN (hypertension) Tachycardia Surgical History H/O foot surgery Social History Household Members: None Housing: Homeless Alcohol intake: never Smoking Status: Former smoker Tobacco Type: Cigarette Second Hand Smoke Exposure: No Use of substances other than those prescribed or required for medical reasons: No Substance Use Type: Marijuana Advance Directives: No Advance Directives Information Provided: Yes service: No Current occupational status: disabled Meds Allergies Allergy/AdvReac Type Severity Reaction Status Date / Time adhesive tape [ADHESIVE TAPE] Allergy Intermediate BLISTERS Verified 11/04/20 20:44 tramadol [TRAMADOL] Allergy Intermediate NAUSEA & Verified 11/04/20 20:44 VOMITING, vomiting oxycodone [OXYCODONE] AdvReac Unknown ITCHING Verified 11/04/20 20:44 Adhesive tape Allergy Unknown Unknown Uncoded 03/17/20 17:31 adhesive tape Allergy Unknown Unknown Uncoded 03/17/20 17:31 Active Medications: Current Medications Generic Name Dose Route Start Last Admin Trade Name Freq PRN Reason Stop Dose Admin Acetaminophen 650 mg 11/05/20 01:51 Acetaminophen 325 Mg Tablet PO Q6H PRN Pain, Mild (Pain Scale 1-3) Docusate Sodium 100 mg 11/05/20 01:51 Docusate Sodium 100 Mg Capsule PO DAILY PRN Constipation Enoxaparin Sodium 40 mg 11/05/20 02:00 11/05/20 03:27 Enoxaparin Sodium 40 Mg/0.4 Ml Syringe SUBCUT 40 mg Q24H BRIDGER Administration Ceftriaxone Sodium 1 gm/ 50 mls @ 100 mls/hr 11/05/20 06:00 11/05/20 05:55 Sodium Chloride IV 100 mls/hr Q24H BRIDGER Administration Azithromycin 500 mg/ Sodium 250 mls @ 125 mls/hr 11/05/20 02:00 11/05/20 05:54 Chloride IV Infused Q24H BRIDGER Infusion Ondansetron HCl 4 mg 11/05/20 01:51 Ondansetron Hcl 4 Mg/2 Ml Vial IVPUSH Q8H PRN Nausea and Vomiting Pharmacy Consult 1 each 11/04/20 20:37 Consult Rx Perform Med Rec MISCELLANE ONCE PRN Consult order Pharmacy Consult 1 each 11/04/20 22:06 Consult Rx Perform Med Rec MISCELLANE ONCE PRN Consult order Sodium Chloride 3 ml 11/05/20 08:00 0.9 % Sodium Chloride Flush 3 Ml Syringe IVFLUSH QSHIFT [facility] Home Medications Medication Instructions Recorded Confirmed Last Taken Type cetirizine 10 mg tablet 10 mg PO DAILY 06/22/20 11/05/20 10/05/20 08:00 History glipizide 5 mg tablet 5 mg PO BID 06/22/20 11/05/20 10/05/20 17:00 History ibuprofen 600 mg tablet 600 mg PO Q8H PRN 06/22/20 11/05/20 10/04/20 History insulin aspart U-100 100 unit/mL See Rx Instructions .ROUTE .COMPLEX 06/22/20 11/05/20 Unknown History subcutaneous solution insulin glargine 100 unit/mL (3 64 unit SUBCUT BID 06/22/20 11/05/20 10/05/20 22:30 History mL) subcutaneous pen metformin 1,000 mg tablet 1,000 mg PO BID 06/22/20 11/05/20 10/04/20 History omeprazole 20 mg capsule,delayed 20 mg PO BID 06/22/20 11/05/20 10/05/20 22:30 History release pravastatin 20 mg tablet 20 mg PO DAILY 06/22/20 11/05/20 10/05/20 17:00 History aspirin [Aspirin Low Dose] 81 mg PO DAILY 11/05/20 11/05/20 Unknown History gabapentin 600 mg PO BID 11/05/20 11/05/20 Unknown History Physical Exam Vital Signs and Narrative: Vital Signs: Last Vital Signs Temp 99 F 11/04/20 22:14 Pulse 111 H 11/04/20 22:14 Resp 20 11/04/20 22:14 BP 126/63 11/04/20 22:14 Pulse Ox 93 11/04/20 22:14 Oxygen Flow Rate 2 11/04/20 20:45 Body Mass Index 45.8 Const: General: cooperative and no acute distress Orientation/consciousness: patient oriented x3 Eyes: General: appearance normal, both eyes and all related structures Resp: Other: I do not appreciate any wheezing Effort & Inspection: normal respiratory effort and able to speak in complete sentences Auscultation: crackles Cardio: Rate: regular rate Rhythm: regular rhythm GI: Palpation (GI): Soft to palpation Auscultation: normal bowel sounds Skin: General skin exam: no rashes or lesions noted Neuro: General: patient oriented x3 Cognition (Neuro): normal cognition Extrem: General: Yes normal to inspection and Yes no pedal edema Results Labs CBC and Chem 7: 11/04/20 22:09 11/04/20 21:12 Labs: Laboratory Results - last 24 hr 11/04/20 11/04/20 11/04/20 21:12 21:12 21:12 MCV MCH MCHC RDW Plt Count MPV Immature Gran % (Auto) Neut % (Auto) Lymph % (Auto) [place] % (Auto) Eos % (Auto) Baso % (Auto) Lymph # (Auto) [place] # (Auto) Eos # (Auto) Baso # (Auto) Abs Immat Gran (auto) Absolute Neuts (auto) Absolute Nucleated RBC Nucleated RBC % (auto) D-Dimer Hold Blue Top VBG pH VBG pCO2 VBG pO2 VBG HCO3 VBG O2 Saturation VBG Base Excess Anion Gap 16 Estim Creat Clear Calc 111.0 Estimated GFR > 60 POC Glucose Random Glucose 206 H D Lactic Acid Calcium 8.3 L Magnesium 2.0 Total Bilirubin 0.7 Direct Bilirubin 0.2 AST 25 D ALT 30 Alkaline Phosphatase 165 H Troponin I High Sens B-Natriuretic Peptide 29 Total Protein 6.2 L Albumin 3.1 L Procalcitonin COVID-19 (BRADY) Negative COVID-Vaprema See Note 11/04/20 11/04/20 11/04/20 21:12 21:12 21:12 MCV MCH MCHC RDW Plt Count MPV Immature Gran % (Auto) Neut % (Auto) Lymph % (Auto) [place] % (Auto) Eos % (Auto) Baso % (Auto) Lymph # (Auto) [place] # (Auto) Eos # (Auto) Baso # (Auto) Abs Immat Gran (auto) Absolute Neuts (auto) Absolute Nucleated RBC Nucleated RBC % (auto) D-Dimer Hold Blue Top SEE NOTE VBG pH VBG pCO2 VBG pO2 VBG HCO3 VBG O2 Saturation VBG Base Excess Anion Gap Estim Creat Clear Calc Estimated GFR POC Glucose Random Glucose Lactic Acid 2.0 Calcium Magnesium Cancelled Total Bilirubin Cancelled Direct Bilirubin Cancelled AST Cancelled ALT Cancelled Alkaline Phosphatase Cancelled Troponin I High Sens B-Natriuretic Peptide Total Protein Cancelled Albumin Cancelled Procalcitonin COVID-19 (BRADY) COVID-Vaprema 11/04/20 11/04/20 11/04/20 21:17 22:09 22:09 MCV 91.4 MCH 29.6 MCHC 32.3 RDW 13.2 Plt Count 178 MPV 8.7 L Immature Gran % (Auto) 0.5 H Neut % (Auto) 65.0 Lymph % (Auto) 27.1 [place] % (Auto) 5.8 Eos % (Auto) 1.4 Baso % (Auto) 0.2 Lymph # (Auto) 1.5 [place] # (Auto) 0.3 Eos # (Auto) 0.1 Baso # (Auto) 0.0 Abs Immat Gran (auto) 0.03 Absolute Neuts (auto) 3.7 Absolute Nucleated RBC 0.000 Nucleated RBC % (auto) 0.0 D-Dimer Hold Blue Top VBG pH 7.40 VBG pCO2 48 VBG pO2 50 VBG HCO3 30 H VBG O2 Saturation 78.0 VBG Base Excess 5.2 Anion Gap Estim Creat Clear Calc Estimated GFR POC Glucose Random Glucose Lactic Acid Calcium Magnesium Total Bilirubin Direct Bilirubin AST ALT Alkaline Phosphatase Troponin I High Sens < 3.5 B-Natriuretic Peptide Total Protein Albumin Procalcitonin COVID-19 (BRADY) COVID-Vaprema 11/04/20 11/05/20 11/05/20 22:09 03:35 21:12 MCV MCH MCHC RDW Plt Count MPV Immature Gran % (Auto) Neut % (Auto) Lymph % (Auto) [place] % (Auto) Eos % (Auto) Baso % (Auto) Lymph # (Auto) [place] # (Auto) Eos # (Auto) Baso # (Auto) Abs Immat Gran (auto) Absolute Neuts (auto) Absolute Nucleated RBC Nucleated RBC % (auto) D-Dimer 499 Hold Blue Top VBG pH VBG pCO2 VBG pO2 VBG HCO3 VBG O2 Saturation VBG Base Excess Anion Gap Estim Creat Clear Calc Estimated GFR POC Glucose 301 H Random Glucose Lactic Acid Calcium Magnesium Total Bilirubin Direct Bilirubin AST ALT Alkaline Phosphatase Troponin I High Sens B-Natriuretic Peptide Total Protein Albumin Procalcitonin 0.11 COVID-19 (BRADY) COVID-19 [facility] Radiologist's Impressions: Impressions Chest X-Ray 11/04/20 20:38 IMPRESSION: Increasing bilateral infiltrates compared to recent exams. Chest CTA 11/05/20 00:03 IMPRESSION: 1. No pulmonary embolus identified, though assessment of the distal vasculature is suboptimal. 2. Moderately extensive bilateral groundglass opacities, worsened since 10/25/2020. This may reflect worsening manifestations of Covid pneumonia. Alternatively, pulmonary edema can also have this appearance. VTE: negative Assessment and Plan (1) Acute respiratory failure with hypoxia: Status: Acute (2) Pulmonary infiltrate: Status: Acute (3) Post-acute sequelae of COVID-19 (PASC): Status: Acute (4) Non-cardiac chest pain: Status: Acute This is a 50-year-old female who was diagnosed with COVID-19 pneumonia in September presents to the hospital with complaints of shortness of breath, cough. # acute respiratory failure with hypoxia - patient currently on baseline O2 of 2 L, but when she arrived with satting 80-89% - most likely secondary to the bilateral infiltrate seen on chest CT which most likely represents pneumonia - BNP is negative - possibly post COVID-19 sequelae - COVID-19 PCR negative - at this time will treat pneumonia with IV antibiotics as below, - continue O2 supplement as needed # pneumonia - viral versus bacterial - has worsening pulmonary infiltrates with repeated negative COVID test - at this time will obtain an extensive pulmonary viral panel, strep antigen as well as Legionella antigen - IV antibiotics - follow cultures - follow respiratory status # chest pain - noncardiac - most likely related to her history of GERD - troponin negative - EKG shows no ACS - continue omeprazole # post acute sequelae of COVID-19 - findings of pulmonary infiltrates may be secondary to sequelae of COVID-19 pneumonia - will treat with IV antibiotics as above and obtain extensive respiratory panel # asthma - no exacerbation - no wheezing - will continue DuoNeb p.r.n. # diabetes - continue home insulin - low-dose sliding scale insulin - diabetic diet
[2020-11-05 06:34] VITALS: BP 160/98; PULSE 97; RESP 30; TEMP 36.6
[2020-11-05 07:53] VITALS: BP 141/68; PULSE 92; RESP 20; TEMP 36.1; O2SAT 97
[2020-11-05 08:14] LABS: Glucose, Whole Blood 337 mg/dL (60-115)
[2020-11-05] MEDS: Insulin Lispro 100 UNIT/ML 3 ML VIAL SUBCUT ×6 (08:22→23:11)
[2020-11-05] MEDS: 0.9 % Sodium Chloride Flush 3 ML SYRINGE IVFLUSH ×3 (08:23→20:44)
--- NOTE | 2020-11-05 09:34 | MHC.CM.PN ---
currently pt live c her 29 y/o son at the [place] [id number] [address] [facility]. this is provided through a [employer] program for homeless people. she says she is waiting for permanent housing through [facility]. pt has a community recreation programmer through [facility], his name is christina, she does not know his phone number. pt uses a walker c ambulation; although she does report that she is independent in her adl's. she has and drives a car. she is on [place] o2 continuously at home. she has a concentration when she is in her motel room and uses a portable tank when in the community. [facility] she does have her walker and portable o2 tank c her here at [facility]. she denies the need for vna at ca. dc plan is for patient to return to [place] [id number] c her son. she will likely need help c transportation - [facility] courtesy [facility]. cm to cont. to follow.
[2020-11-05] MEDS: predniSONE 20 MG TABLET 40 MG PO (09:50)
[2020-11-05] MEDS: Aspirin Enteric Coated 81 MG TABLET.DR PO (09:50)
[2020-11-05] MEDS: Loratadine 10 MG TABLET PO (09:50)
[2020-11-05] MEDS: Gabapentin 600 MG TABLET PO ×2 (09:50→20:44)
[2020-11-05] MEDS: Insulin Glargine,Hum.rec.anlog 100 UNIT/ML 10 ML VIAL 64 UNIT SUBCUT ×2 (09:50→20:45)
[2020-11-05 11:56] LABS: Glucose, Whole Blood 366 mg/dL (60-115)
[2020-11-05 12:00] VITALS: BP 163/77; PULSE 97; RESP 17; TEMP 36.6; O2SAT 92
--- NOTE | 2020-11-05 12:35 | HO.PM.IMPN ---
Subjective Subjective Date of Service: 11/05/20 Interval History: sob Cardiovascular Cardiovascular: Reports no additional cardiovascular complaints Gastrointestinal Gastrointestinal: Reports no additional gastrointestinal complaints Physical Exam Vital Signs: Vital Signs: Last Vital Signs Temp 96.9 F 11/05/20 07:53 Pulse 92 11/05/20 07:53 Resp 20 11/05/20 07:53 BP 141/68 H 11/05/20 07:53 Pulse Ox 97 11/05/20 07:53 Oxygen Flow Rate 2 11/04/20 20:45 Body Mass Index 45.8 General: AO X 3, no acute distress Resp: Crackles CVS: S1,S2,RRR GI: soft, non tender, non distended Neuro: motor grossly intact Psych: appropriate affect Objective Data Current Medications Generic Name Dose Route Start Last Admin Trade Name Freq PRN Reason Stop Dose Admin Acetaminophen 650 mg 11/05/20 01:51 Acetaminophen 325 Mg Tablet PO Q6H PRN Pain, Mild (Pain Scale 1-3) Albuterol Sulfate 2 puff 11/05/20 08:28 Albuterol Sulfate 90 Mcg 8 Gm Inhaler INHALE Q4H PRN shortness of breath or wheezing Albuterol/Ipratropium 3 ml 11/05/20 06:04 Albuterol/Iprat 2.5/0.5mg 3 Ml Ampul.Neb INHALE RQ4H PRN Shortness of Breath/Wheezing Aspirin 81 mg 11/05/20 09:00 11/05/20 09:50 Aspirin Enteric Coated 81 Mg Tablet.Dr PO 81 mg DAILY BRIDGER Administration Docusate Sodium 100 mg 11/05/20 01:51 Docusate Sodium 100 Mg Capsule PO DAILY PRN Constipation Enoxaparin Sodium 40 mg 11/05/20 02:00 11/05/20 03:27 Enoxaparin Sodium 40 Mg/0.4 Ml Syringe SUBCUT 40 mg Q24H BRIDGER Administration Fluticasone/Vilanterol 1 puff 11/06/20 08:00 Fluticasone/Vilanterol 100/25 Blst.W.Dev INHALE RDAILY BRIDGER Gabapentin 600 mg 11/05/20 09:00 11/05/20 09:50 Gabapentin 600 Mg Tablet PO 600 mg BID BRIDGER Administration Insulin Glargine 64 unit 11/05/20 09:00 11/05/20 09:50 Insulin Glargine,Hum.Rec.Anlog 100 Unit/Ml 10 Ml Vial SUBCUT 64 unit BID BRIDGER Administration Insulin Human Lispro 0 unit 11/05/20 07:30 11/05/20 12:23 Insulin Lispro 100 Unit/Ml 3 Ml Vial SUBCUT 10 unit QIDACHS BRIDGER Administration Protocol Loratadine 10 mg 11/05/20 09:00 11/05/20 09:50 Loratadine 10 Mg Tablet PO 10 mg DAILY BRIDGER Administration Ondansetron HCl 4 mg 11/05/20 01:51 Ondansetron Hcl 4 Mg/2 Ml Vial IVPUSH Q8H PRN Nausea and Vomiting Pharmacy Consult 1 each 11/04/20 20:37 Consult Rx Perform Med Rec MISCELLANE ONCE PRN Consult order Pharmacy Consult 1 each 11/04/20 22:06 Consult Rx Perform Med Rec MISCELLANE ONCE PRN Consult order Pravastatin Sodium 20 mg 11/05/20 21:00 Pravastatin Sodium 20 Mg Tablet PO BEDTIME BRIDGER Prednisone 40 mg 11/05/20 09:00 11/05/20 09:50 Prednisone 20 Mg Tablet PO 40 mg DAILY BRIDGER Administration Sodium Chloride 3 ml 11/05/20 08:00 11/05/20 08:23 0.9 % Sodium Chloride Flush 3 Ml Syringe IVFLUSH 3 ml QSHIFT BRIDGER Administration Labs CBC & Chem 7: 11/04/20 22:09 11/04/20 21:12 Assessment and Plan (1) Post-acute sequelae of COVID-19 (PAS): Status: Acute (2) Acute respiratory failure with hypoxia: Status: Acute (3) Asthma with exacerbation: Status: Acute Assessment and Plan: 50F presented with shortness of breath Acute hypoxic respiratory failure secondary to post COVID sequela and asthma exacerbation No evidence of bacterial infection, DC antibiotics Will restart steroids, may need prolonged taper Diabetes Insulin Morbid obesity Weight loss
--- NOTE | 2020-11-05 12:36 | P.CDIC_ITS ---
CDI Concurrent Query Service Date: 11/05/20 Documentation Clarification: Please clarify if you are treating a proba ble/suspected/likely or confirmed: BMI Morbid obesity Please specify if known PLEASE DO NOT DELETE/MODIFY EXISTING CONTENT Additional information is needed in order to code to the highest accuracy and appropriate Severity of Illness (SOI). Please clarify the information noted below in your progress notes and discharge summary. Risk Factors/Clinical Indicators/Treatments Body mass index: 45.8 CDS: Kinza Keen CCS, CDIS Contact Number: [phone] Please Review the information above and exercise your independent professional judgment in responding to the query. If you concur, pleas document in the PROGRESS NOTES and DISCHARGE SUMMARY. If you do not agree with the query, please document in the query above. THIS QUERY IS PART OF THE PERMANENT MEDICAL RECORD
[2020-11-05] MEDS: Acetaminophen 325 MG TABLET 650 MG PO ×2 (13:57→19:52)
[2020-11-05 16:00] VITALS: BP 154/80; PULSE 95; RESP 17; TEMP 36.6; O2SAT 94
[2020-11-05 17:04] LABS: Glucose, Whole Blood 225 mg/dL (60-115)
[2020-11-05 18:54] VITALS: BP 136/74; PULSE 87; RESP 16; TEMP 36.1; O2SAT 93
--- NOTE | 2020-11-05 19:22 | PC.NURSE ---
1200- POC 366. Dr. Felipe made aware. 5 units humalog ordered in addition to SSI. 15units Humalog insulin given. Pt eating lunch, no complaints at this time.
--- NOTE | 2020-11-05 19:23 | PC.NURSE ---
1600- Pt stating she does not feel right . She feels that her heart is racing, having palpitations, and is dizzy. BP 154/80, pulse 95. Dr. Felipe made aware. EKG ordered and obtained. No other new orders at this time.
[2020-11-05 20:37] LABS: Glucose, Whole Blood 365 mg/dL (60-115)
[2020-11-05] MEDS: Pravastatin Sodium 20 MG TABLET PO (20:44)
[2020-11-05 23:06] LABS: Glucose, Whole Blood 324 mg/dL (60-115)
--- NOTE | 2020-11-05 23:18 | PC.NURSE ---
2030 poc-365 10 units of humalog given per scale with 64 units of lantus.no additional insulin per and to re-check poc in couple hours.repeat poc-324. notified and ordered to give insulin per sliding scale.8 units given.
[2020-11-06] VITALS (9 sets, daily range): BP systolic 119–179; BP diastolic 71–100; PULSE 76–85; RESP 18–19; TEMP 36.1–36.8; O2SAT 90–96
[2020-11-06] MEDS: Ibuprofen 400 MG TABLET PO (01:49)
[2020-11-06] MEDS: Enoxaparin Sodium 40 MG/0.4 ML SYRINGE SUBCUT (01:50)
[2020-11-06 06:32] LABS: MANUAL DIFF FLAG NO
[2020-11-06 06:47] LABS: Basophils Percent Auto 0.2 % (0-2); Eosinophils Percent Auto 0.3 % (0-4); Hematocrit 33.5 % (37-47); Hemoglobin 10.9 g/dl (12.0-16.0); Imm Gran Abs Auto 0.04 X10*3/uL (0.00-0.03); Imm Gran Pct Auto 0.6 % (0.0-0.4); Lymphocytes Absolute Auto 1.4 X10*3/uL (1.2-4.9); Lymphocytes Percent Auto 21.9 % (20-40); Mean Corpuscular HGB Conc 32.5 g/dl (31.0-35.0); Mean Corpuscular Hemoglobin 29.2 pg (27.0-33.0); Mean Corpuscular Volume 89.8 fL (80-98); Mean Platelet Volume 8.9 fL (9.4-12.3); Monocytes Absolute Auto 0.3 X10*3/uL (0.1-1.2); Neutrophils Absolute Auto 4.7 X10*3/uL (2.0-8.3); Platelet Count 208 X10*3/uL (160-400); Red Blood Count 3.73 X10*6/uL (4.20-5.50); Red Cell Distribution Width 13.1 % (11.0-16.0); White Blood Count 6.5 X10*3/uL (4.8-10.8)
[2020-11-06 07:22] LABS: Anion Gap 14 (12-20); Blood Urea Nitrogen 24 mg/dL (9-16); Calcium 9.1 mg/dL (8.4-10.2); Carbon Dioxide 26 mmol/L (22-29); Chloride 106 mmol/L (96-108); Creatinine Clr Calc Pharmacy 145.4; Estimated Glomerular Filt Rate > 60; Glucose Random 96 mg/dL (60-115); Sodium 142 mmol/L (135-145)
[2020-11-06 07:39] LABS: Glucose, Whole Blood 84 mg/dL (60-115)
[2020-11-06] MEDS: Fluticasone/Vilanterol 100/25 BLST.W.DEV 1 PUFF INHALE (07:41)
[2020-11-06] MEDS: Loratadine 10 MG TABLET PO (09:31)
[2020-11-06] MEDS: Gabapentin 600 MG TABLET PO ×2 (09:31→21:02)
[2020-11-06] MEDS: Acetaminophen 325 MG TABLET 650 MG PO (09:31)
[2020-11-06] MEDS: predniSONE 20 MG TABLET 40 MG PO (09:31)
[2020-11-06] MEDS: Aspirin Enteric Coated 81 MG TABLET.DR PO (09:31)
[2020-11-06] MEDS: 0.9 % Sodium Chloride Flush 3 ML SYRINGE IVFLUSH ×3 (09:33→23:55)
[2020-11-06 09:55] LABS: Glucose, Whole Blood 149 mg/dL (60-115)
[2020-11-06 11:54] LABS: Glucose, Whole Blood 167 mg/dL (60-115)
--- NOTE | 2020-11-06 12:24 | P.CONPL_ITS ---
History of Present Illness History of Present Illness Consult date: 11/06/20 Chief complaint: Hypoxic resp failure Narrative: This is a 50-year-old female with past medical history of asthma, COVID-19 in September with pneumonia now on 2 L of oxygen who presents to the hospital with complaints of difficulty breathing for the past few days. Patient reports that she was using her 2 L of oxygen as well as well as her breathing treatment with no improvement of her symptoms while on prednisone. She completed the steroids and now feeling weak, dizzy, significantly short of breath on minimal exertion, cough with no sputum production, denies any fever, no chills. she is feeling stabbing pain in the middle of her chest that feels like her usual heartburn, intermittent, lasting about 5 minutes and resolving spontaneously. She reports palpitations. She reports left upper quadrant abdominal pain for the past 2 days that is also intermittent with no diarrhea, some nausea with no vomiting. He reports chronic swelling in her legs and chronic pain. In the ED she was noted to have significant wheezing. Her CT chest with extensive airspace disease. Review of Systems Constitutional: Constitutional: Denies night sweats ENT: Denies change in voice, Denies lip swelling, Denies mouth pain, Reports nasal congestion, Reports nasal discharge and Denies tongue swelling Cardiovascular: Cardiovascular: Denies chest pain and Reports dyspnea Respiratory: Respiratory: Reports cough, Reports dyspnea and Reports wheezing Gastrointestinal: Gastrointestinal: Denies abdominal pain Musculoskeletal: Musculoskeletal: Denies no additional musculoskeletal complaints Neurologic: Denies Neuro-related abnormal movements Psychiatric: Psychiatric: Denies no additional psychiatric complaints Hematologic/Lymphatic: Hematologic/Lymphatic: Denies easy bleeding and Denies lymphadenopathy Allergic/Immunologic: Allergic/Immunologic: Denies lip swelling, Denies tongue swelling and Reports wheezing PMFSH Past Medical History Medical History Asthma delivery delivered Cholecystectomy planned COVID-19 Depression Diabetes Hernia of abdominal wall High cholesterol HTN (hypertension) Tachycardia Surgical History Surgical History H/O foot surgery Social History Social History Household Members: Other Household Members Other:: son Housing: Homeless Housing Other:: stays in hotel waiting for housing Do you presently have visiting nurse or other home services: No Alcohol intake: never Smoking Status: Former smoker Tobacco Type: Cigarette Smoked in Last 30 Days: No Patient Interested in Nicotine Replacement: No Patient Given Instructions on How to Stop Smoking: No Second Hand Smoke Exposure: No Use of substances other than those prescribed or required for medical reasons: Yes Substance Use Type: Marijuana Substance Use Frequency: Daily Last Used Substance: Days (ago) Currently Displaying Signs/Symptoms of Drug Intoxication Withdrawal: No Any prior treatment program specific to substance use: No Have you been hit, kicked, punched, or otherwise hurt by someone within the past year? If so, by whom?: No Do you feel safe in your current relationship?: Yes Is there a partner from a previous relationship who is making you feel unsafe now?: No Are you made to feel afraid or neglected: No Advance Directives: No Advance Directives Information Provided: Yes Do you have thoughts of harming others: None Do you have a plan to hurt others: No Plan service: No Current occupational status: disabled Meds Allergies Allergy/AdvReac Type Severity Reaction Status Date / Time adhesive tape [ADHESIVE TAPE] Allergy Intermediate BLISTERS Verified 11/04/20 20:44 tramadol [TRAMADOL] Allergy Intermediate NAUSEA & Verified 11/04/20 20:44 VOMITING, vomiting oxycodone [OXYCODONE] AdvReac Unknown ITCHING Verified 11/04/20 20:44 Adhesive tape Allergy Unknown Unknown Uncoded 03/17/20 17:31 adhesive tape Allergy Unknown Unknown Uncoded 03/17/20 17:31 Active Medications: Current Medications Generic Name Dose Route Start Last Admin Trade Name Freq PRN Reason Stop Dose Admin Acetaminophen 650 mg 11/05/20 01:51 11/06/20 09:31 Acetaminophen 325 Mg Tablet PO 650 mg Q6H PRN Administration Pain, Mild (Pain Scale 1-3) Albuterol Sulfate 2 puff 11/05/20 08:28 Albuterol Sulfate 90 Mcg 8 Gm Inhaler INHALE Q4H PRN shortness of breath or wheezing Albuterol/Ipratropium 3 ml 11/05/20 06:04 Albuterol/Iprat 2.5/0.5mg 3 Ml Ampul.Neb INHALE RQ4H PRN Shortness of Breath/Wheezing Aspirin 81 mg 11/05/20 09:00 11/06/20 09:31 Aspirin Enteric Coated 81 Mg Tablet.Dr PO 81 mg DAILY [facility] Administration Docusate Sodium 100 mg 11/05/20 01:51 Docusate Sodium 100 Mg Capsule PO DAILY PRN Constipation Enoxaparin Sodium 40 mg 11/05/20 02:00 11/06/20 01:50 Enoxaparin Sodium 40 Mg/0.4 Ml Syringe SUBCUT 40 mg Q24H [facility] Administration Fluticasone/Vilanterol 1 puff 11/06/20 08:00 11/06/20 07:41 Fluticasone/Vilanterol 100/25 Blst.W.Dev INHALE 1 puff RDAILY [facility] Administration Gabapentin 600 mg 11/05/20 09:00 11/06/20 09:31 Gabapentin 600 Mg Tablet PO 600 mg BID [facility] Administration Insulin Glargine 50 unit 11/06/20 09:45 11/06/20 11:41 Insulin Glargine,Hum.Rec.Anlog 100 Unit/Ml 10 Ml Vial SUBCUT Not Given BID [facility] Insulin Human Lispro 0 unit 11/05/20 07:30 11/06/20 11:54 Insulin Lispro 100 Unit/Ml 3 Ml Vial SUBCUT Not Given QIDACHS [facility] Protocol Loratadine 10 mg 11/05/20 09:00 11/06/20 09:31 Loratadine 10 Mg Tablet PO 10 mg DAILY [facility] Administration Methylprednisolone Sodium Succinate 60 mg 11/06/20 12:30 Methylprednisolone Sod Succ 125 Mg/2 Ml Vial IVPUSH Q8H [facility] Ondansetron HCl 4 mg 11/05/20 01:51 Ondansetron Hcl 4 Mg/2 Ml Vial IVPUSH Q8H PRN Nausea and Vomiting Pharmacy Consult 1 each 11/04/20 20:37 Consult Rx Perform Med Rec MISCELLANE ONCE PRN Consult order Pharmacy Consult 1 each 11/04/20 22:06 Consult Rx Perform Med Rec MISCELLANE ONCE PRN Consult order Pravastatin Sodium 20 mg 11/05/20 21:00 11/05/20 20:44 Pravastatin Sodium 20 Mg Tablet PO 20 mg BEDTIME [facility] Administration Sodium Chloride 3 ml 11/05/20 08:00 11/06/20 09:33 0.9 % Sodium Chloride Flush 3 Ml Syringe IVFLUSH 3 ml QSHIFT [facility] Administration Home Medications Medication Instructions Recorded Confirmed Last Taken Type cetirizine 10 mg tablet 10 mg PO DAILY 06/22/20 11/05/20 10/05/20 08:00 History glipizide 5 mg tablet 5 mg PO BID 06/22/20 11/05/20 10/05/20 17:00 History ibuprofen 600 mg tablet 600 mg PO Q8H PRN 06/22/20 11/05/20 10/04/20 History insulin aspart U-100 100 unit/mL See Rx Instructions .ROUTE .COMPLEX 06/22/20 11/05/20 Unknown History subcutaneous solution insulin glargine 100 unit/mL (3 64 unit SUBCUT BID 06/22/20 11/05/20 10/05/20 22:30 History mL) subcutaneous pen metformin 1,000 mg tablet 1,000 mg PO BID 06/22/20 11/05/20 10/04/20 History omeprazole 20 mg capsule,delayed 20 mg PO BID 06/22/20 11/05/20 10/05/20 22:30 History release pravastatin 20 mg tablet 20 mg PO DAILY 06/22/20 11/05/20 10/05/20 17:00 History aspirin [Aspirin Low Dose] 81 mg PO DAILY 11/05/20 11/05/20 Unknown History famotidine 1 tab PO BEDTIME 11/05/20 11/05/20 Unknown History fluticasone propion-salmeterol 2 puff PO BID 11/05/20 11/05/20 Unknown History [Advair HFA] gabapentin 600 mg PO BID 11/05/20 11/05/20 Unknown History Physical Exam Vital Signs: Vital Signs: Last Vital Signs Temp 97.0 F 11/06/20 11:35 Pulse 81 11/06/20 11:35 Resp 19 11/06/20 11:35 BP 119/72 11/06/20 11:35 Pulse Ox 94 11/06/20 11:35 Oxygen Flow Rate 2 11/04/20 20:45 Body Mass Index 45.8 Const: General: alert Eyes: Pupils: Equal, round and reactive pupils present Neck: Neck: Yes normal visual inspection, Yes full ROM and Yes no lymphadeno constantine Chest: Chest palpation & inspection: normal inspection of the chest Resp: Auscultation: no crackles, no rales, no rhonchi, wheezes and diminished lung sounds Cardio: Rate: regular rate Rhythm: regular rhythm Heart sounds: S1 normal heart sound present and S2 normal heart sound present GI: Palpation (GI): Soft to palpation and nontender Auscultation: normal bowel sounds : General: Yes no CVA tenderness Back/Spine/Pelvis: Back: no CVA tenderness Skin: General skin exam: rashes and/or lesions noted Neuro: Cranial nerves: Yes Equal, round and reactive pupils present Results Laboratory Findings CBC and BMP: 11/06/20 05:36 11/06/20 05:36 ABG, PT/INR, D-dimer: PT/INR, D-dimer D-Dimer 499 NG/ML 11/04/20 22:09 Abnormal lab findings: Abnormal Labs 11/04/20 11/04/20 11/04/20 21:12 21:17 22:09 RBC 3.62 L D Hgb 10.7 L D Hct 33.1 L MPV 8.7 L Immature Gran % (Auto) 0.5 H Abs Immat Gran (auto) VBG HCO3 30 H BUN 23 H POC Glucose Random Glucose 206 H D Calcium 8.3 L Alkaline Phosphatase 165 H Total Protein 6.2 L Albumin 3.1 L 11/05/20 11/05/20 11/05/20 03:35 07:50 11:46 RBC Hgb Hct MPV Immature Gran % (Auto) Abs Immat Gran (auto) VBG HCO3 BUN POC Glucose 301 H 337 H 366 H* Random Glucose Calcium Alkaline Phosphatase Total Protein Albumin 11/05/20 11/05/20 11/05/20 16:53 20:32 23:02 RBC Hgb Hct MPV Immature Gran % (Auto) Abs Immat Gran (auto) VBG HCO3 BUN POC Glucose 225 H 365 H* 324 H Random Glucose Calcium Alkaline Phosphatase Total Protein Albumin 11/06/20 11/06/20 11/06/20 05:36 05:36 09:28 RBC 3.73 L Hgb 10.9 L Hct 33.5 L MPV 8.9 L Immature Gran % (Auto) 0.6 H Abs Immat Gran (auto) 0.04 H VBG HCO3 BUN 24 H POC Glucose 149 H Random Glucose Calcium Alkaline Phosphatase Total Protein Albumin 11/06/20 11:31 RBC Hgb Hct MPV Immature Gran % (Auto) Abs Immat Gran (auto) VBG HCO3 BUN POC Glucose 167 H Random Glucose Calcium Alkaline Phosphatase Total Protein Albumin Microbiology: Microbiology 11/04/20 21:12 Blood - Venous Blood Culture - Preliminary No growth after 24 hours. 11/04/20 21:12 Blood - Venous Blood Culture - Preliminary No growth after 24 hours. Assessment and Plan (1) Post-acute sequelae of COVID-19 (PASC): Status: Acute (2) Asthma with exacerbation: Qualifiers: Asthma persistence: persistent Asthma severity: moderate Qualified Code(s): J45.41 - Moderate persistent asthma with (acute) exacerbation Status: Acute (3) Pulmonary infiltrate: Status: Acute Change to IV steroids for 24-48 hours Low procalcitonin, nl WBC therefore holding abx Continue Breo Duonebs QID Oxygen to keep pox >90% plan to follow up with her as an outpt closely to minimize readmissions Procedures Date of Service Date of Service: 11/06/20
[2020-11-06] MEDS: methylPREDNISolone Sod Succ 125 MG/2 ML VIAL 60 MG IVPUSH ×2 (13:48→21:02)
[2020-11-06] MEDS: Butalb/Acetamin/Caff 50/325/40 TABLET 1 TAB PO ×2 (13:48→21:02)
--- NOTE | 2020-11-06 14:47 | P.PNIM_ITS ---
Subjective Subjective Date of Service: 11/06/20 Interval History: sob Review of Systems still feels sob has headaches denies any abdominal pain or fever chills or cough or phlegm. Physical Exam Vital Signs: Vital Signs: Last Vital Signs Temp 97.0 F 11/06/20 11:35 Pulse 81 11/06/20 11:35 Resp 19 11/06/20 11:35 BP 119/72 11/06/20 11:35 Pulse Ox 94 11/06/20 11:35 Oxygen Flow Rate 2 11/04/20 20:45 Body Mass Index 45.8 Physical exam: physio: head: atrumatic Neck: Normal inspection. Neck supple. CVS: tachycardic heart rate and rhythm. Pulses normal. Respiratory: has fair air entry, breath sounds diminshed at bases. Abdomen: Soft and nontender. Skin: Skin warm and dry. Normal skin color. Normal skin turgor. Extremities: No lower extremity edema. no cyanosis Neuro: Oriented X 3. No motor deficit. No sensory deficit. Objective Data Current Medications Generic Name Dose Route Start Last Admin Trade Name Georgeq PRN Reason Stop Dose Admin Acetaminophen 650 mg 11/05/20 01:51 11/06/20 09:31 Acetaminophen 325 Mg Tablet PO 650 mg Q6H PRN Administration Pain, Mild (Pain Scale 1-3) Albuterol Sulfate 2 puff 11/05/20 08:28 Albuterol Sulfate 90 Mcg 8 Gm Inhaler INHALE Q4H PRN shortness of breath or wheezing Albuterol/Ipratropium 3 ml 11/05/20 06:04 Albuterol/Iprat 2.5/0.5mg 3 Ml Ampul.Neb INHALE RQ4H PRN Shortness of Breath/Wheezing Aspirin 81 mg 11/05/20 09:00 11/06/20 09:31 Aspirin Enteric Coated 81 Mg Tablet.Dr PO 81 mg DAILY [facility] Administration Docusate Sodium 100 mg 11/05/20 01:51 Docusate Sodium 100 Mg Capsule PO DAILY PRN Constipation Enoxaparin Sodium 40 mg 11/05/20 02:00 11/06/20 01:50 Enoxaparin Sodium 40 Mg/0.4 Ml Syringe SUBCUT 40 mg Q24H [facility] Administration Fluticasone/Vilanterol 1 puff 11/06/20 08:00 11/06/20 07:41 Fluticasone/Vilanterol 100/25 Blst.W.Dev INHALE 1 puff RDAILY [facility] Administration Gabapentin 600 mg 11/05/20 09:00 11/06/20 09:31 Gabapentin 600 Mg Tablet PO 600 mg BID [facility] Administration Insulin Glargine 50 unit 11/06/20 09:45 11/06/20 11:41 Insulin Glargine,Hum.Rec.Anlog 100 Unit/Ml 10 Ml Vial SUBCUT Not Given BID [facility] Insulin Human Lispro 0 unit 11/05/20 07:30 11/06/20 11:54 Insulin Lispro 100 Unit/Ml 3 Ml Vial SUBCUT Not Given QIDACHS [facility] Protocol Loratadine 10 mg 11/05/20 09:00 11/06/20 09:31 Loratadine 10 Mg Tablet PO 10 mg DAILY [facility] Administration Methylprednisolone Sodium Succinate 60 mg 11/06/20 12:30 11/06/20 13:48 Methylprednisolone Sod Succ 125 Mg/2 Ml Vial IVPUSH 60 mg Q8H [facility] Administration Ondansetron HCl 4 mg 11/05/20 01:51 Ondansetron Hcl 4 Mg/2 Ml Vial IVPUSH Q8H PRN Nausea and Vomiting Pharmacy Consult 1 each 11/04/20 20:37 Consult Rx Perform Med Rec MISCELLANE ONCE PRN Consult order Pharmacy Consult 1 each 11/04/20 22:06 Consult Rx Perform Med Rec MISCELLANE ONCE PRN Consult order Pravastatin Sodium 20 mg 11/05/20 21:00 11/05/20 20:44 Pravastatin Sodium 20 Mg Tablet PO 20 mg BEDTIME [facility] Administration Sodium Chloride 3 ml 11/05/20 08:00 11/06/20 09:33 0.9 % Sodium Chloride Flush 3 Ml Syringe IVFLUSH 3 ml QSHIFT [facility] Administration Labs CBC & Chem 7: 11/06/20 05:36 11/06/20 05:36 Microbiology Microbiology Results: Microbiology 11/04/20 21:12 Blood - Venous Blood Culture - Preliminary No growth after 24 hours. 11/04/20 21:12 Blood - Venous Blood Culture - Preliminary No growth after 24 hours. Assessment and Plan (1) Post-acute sequelae of COVID-19 (PASC): Status: Acute (2) Acute respiratory failure with hypoxia: Status: Acute (3) Asthma with exacerbation: Status: Acute Assessment and Plan: 50F presented with shortness of breath 1.Acute hypoxic respiratory failure secondary to post COVID sequela and asthma exacerbation No evidence of bacterial infection, DC antibiotics Low procalcitonin level, normal wbc , no fevers , off antibiotics she still feels sob -discuss with pulmonary: IV steroid adjusted. Will continue to monitor. Incentive spirometry, continue DuoNebs, Rosales, chest physio 2.Diabetes: hs flactuating between 80-160 range hold lantus add Hba1c levels in am Insulin fs with adjusted coverage. 3.Morbid obesity encouraged for Weight loss
[2020-11-06 16:16] LABS: Glucose, Whole Blood 313 mg/dL (60-115)
[2020-11-06] MEDS: Insulin Lispro 100 UNIT/ML 3 ML VIAL SUBCUT ×2 (16:28→21:03)
[2020-11-06 20:15] LABS: Glucose, Whole Blood 363 mg/dL (60-115)
[2020-11-06] MEDS: Famotidine/PF 20 MG/2 ML VIAL IVPUSH (21:00)
[2020-11-06] MEDS: Pravastatin Sodium 20 MG TABLET PO (21:02)
[2020-11-06] MEDS: Albuterol/Iprat 2.5/0.5MG 3 ML AMPUL.NEB INHALE (21:56)
--- NOTE | 2020-11-06 21:57 | PC.NURSE ---
2011 Blood sugar 363, Dr. Woody notified. 10 units humalog per sliding scale to be administered, no additional orders at this time.
--- NOTE | 2020-11-06 22:00 | PC.NURSE ---
P: 2030 Patient reporting throbbing headache, rating it 7/10. Patient c/o heartburn. I: Dr. Woody notified via [employer]. E: Orders received for Fiorecet and Pepcid
[2020-11-07] VITALS (7 sets, daily range): BP systolic 125–171; BP diastolic 71–98; PULSE 77–90; RESP 18–20; TEMP 36.3–36.8; O2SAT 92–96
--- NOTE | 2020-11-07 02:11 | PC.NURSE ---
Patient states she feels anxious and is tearful, speaking of being homeless and family conflicts. She states she had at one point been taking antidepressants and is not currently on them and would like to speak to someone about mental health. States she would like to have her meds reordered. Patient states she has taken Cymbalta, Abilify, and Wellbuterin.
[2020-11-07] MEDS: methylPREDNISolone Sod Succ 125 MG/2 ML VIAL 60 MG IVPUSH ×3 (03:48→21:17)
[2020-11-07] MEDS: Enoxaparin Sodium 40 MG/0.4 ML SYRINGE SUBCUT (03:49)
[2020-11-07 07:16] LABS: Estimated Average Glucose 298 mg/dL
[2020-11-07] MEDS: Insulin Lispro 100 UNIT/ML 3 ML VIAL SUBCUT ×3 (07:48→16:48)
[2020-11-07] MEDS: Aspirin Enteric Coated 81 MG TABLET.DR PO (07:48)
[2020-11-07] MEDS: Gabapentin 600 MG TABLET PO ×2 (07:48→18:44)
[2020-11-07] MEDS: Loratadine 10 MG TABLET PO (07:48)
[2020-11-07 07:49] LABS: Glucose, Whole Blood 317 mg/dL (60-115)
[2020-11-07] MEDS: 0.9 % Sodium Chloride Flush 3 ML SYRINGE IVFLUSH ×3 (07:49→21:20)
[2020-11-07] MEDS: Fluticasone/Vilanterol 100/25 BLST.W.DEV 1 PUFF INHALE (07:49)
--- NOTE | 2020-11-07 09:10 | PM.PNPUL ---
Subjective Subjective Date of Service: 11/07/20 Interval history: The patient was seen on exam. Overall the patient has been doing better on the IV steroids. She does complaint of some pleuritic chest discomfort. She has also been depressed and anxious. At this point her respiratory status is much better and she can go back to p.o. prednisone. Likely the high-dose steroids are making her more labile with her mood. Objective Data Labs CBC & Chem 7: 11/06/20 05:36 11/06/20 05:36 Labs: Laboratory Results - last 24 hr 11/06/20 11/06/20 11/06/20 09:28 11:31 16:13 POC Glucose 149 H 167 H 313 H Estimat Average Glucose Hemoglobin A1c % 11/06/20 11/07/20 11/07/20 20:11 05:55 07:10 POC Glucose 363 H* 317 H Estimat Average Glucose 298 Hemoglobin A1c % 12.0 Microbiology Microbiology Results: Microbiology 11/04/20 21:12 Blood - Venous Blood Culture - Preliminary No growth after 48 hours. 11/04/20 21:12 Blood - Venous Blood Culture - Preliminary No growth after 48 hours. Review of Systems Constitutional: Denies night sweats Denies change in voice, Denies lip swelling, Denies mouth pain, Reports nasal congestion, Reports nasal discharge and Denies tongue swelling Cardiovascular: Reports chest pain and Reports dyspnea Respiratory: Reports cough, Reports dyspnea and Reports wheezing Gastrointestinal: Denies abdominal pain Musculoskeletal: Denies no additional musculoskeletal complaints Denies Neuro-related abnormal movements Psychiatric: Denies no additional psychiatric complaints Hematologic/Lymphatic: Denies easy bleeding and Denies lymphadenopathy Allergic/Immunologic: Denies lip swelling, Denies tongue swelling and Reports wheezing Physical Exam Vital Signs: Vital Signs: Last Vital Signs Temp 97.3 F 11/07/20 07:12 Pulse 77 11/07/20 07:50 Resp 19 11/07/20 07:12 BP 145/71 H 11/07/20 07:12 Pulse Ox 92 11/07/20 07:12 Oxygen Flow Rate 2 11/04/20 20:45 Body Mass Index 45.8 Const: General: alert Neck: Neck: Yes normal visual inspection, Yes full ROM and Yes no lymphadenopathy Chest: Chest palpation & inspection: normal inspection of the chest Resp: Auscultation: diminished lung sounds Cardio: Rate: regular rate Rhythm: regular rhythm Heart sounds: S1 normal heart sound present and S2 normal heart sound present GI: Palpation (GI): Soft to palpation and nontender Auscultation: normal bowel sounds Skin: General skin exam: rashes and/or lesions noted Procedures Date of Service Date of Service: 11/07/20 Assessment and Plan Assessment and plan (1) Asthma with exacerbation: Status: Acute (2) Acute respiratory failure with hypoxia: Status: Acute (3) Post-acute sequelae of COVID-19 (PASC): Status: Acute Assessment and Plan: Change to PO prednisone with a slow taper, keep on 10mg daily Respiratory therapy Mucinex Acapella valve Continue oxygen supplementation to keep pox >90% Will arrange F/U with outpt pulmonary in 1-2 weeks Time Spent With Patient Time: Total time spent is greater than 50% in coordination of care (as documented) at patient's floor/unit and/or counseling patient: Time with patient: 15 - 24 minutes
[2020-11-07] MEDS: Insulin Glargine,Hum.rec.anlog 100 UNIT/ML 10 ML VIAL 50 UNIT SUBCUT ×2 (09:53→21:19)
[2020-11-07 11:44] LABS: Glucose, Whole Blood 398 mg/dL (60-115)
[2020-11-07] MEDS: Omeprazole 20 MG CAPSULE.DR PO (12:01)
--- NOTE | 2020-11-07 12:05 | PC.NURSE ---
dr wiggins aware of poc 398. orders to give ss and extra 5 units lispro
--- NOTE | 2020-11-07 12:21 | HO.PM.IMPN ---
Subjective Subjective Date of Service: 11/07/20 Interval History: Acute hypoxemic respiratory failure Review of Systems Says is short breath but seems slightly better than yesterday. Denies any chest pain or abdominal pain or nausea or vomiting or diarrhea. Physical Exam Vital Signs: Vital Signs: Last Vital Signs Temp 97.3 F 11/07/20 11:36 Pulse 83 11/07/20 11:36 Resp 19 11/07/20 11:36 BP 130/75 11/07/20 11:36 Pulse Ox 93 11/07/20 11:36 Oxygen Flow Rate 2 11/04/20 20:45 Body Mass Index 45.8 Physical exam: CVS: tachycardic heart rate and rhythm. Pulses normal. Respiratory: has fair air entry, breath sounds diminshed at bases. Abdomen: Soft and nontender. Skin: Skin warm and dry. Normal skin color. Normal skin turgor. Extremities: No lower extremity edema. no cyanosis Neuro: Oriented X 3. No motor deficit. No sensory deficit. Objective Data Current Medications Generic Name Dose Route Start Last Admin Trade Name Georgeq PRN Reason Stop Dose Admin Acetaminophen 650 mg 11/05/20 01:51 11/06/20 09:31 Acetaminophen 325 Mg Tablet PO 650 mg Q6H PRN Administration Pain, Mild (Pain Scale 1-3) Albuterol Sulfate 2 puff 11/05/20 08:28 Albuterol Sulfate 90 Mcg 8 Gm Inhaler INHALE Q4H PRN shortness of breath or wheezing Albuterol/Ipratropium 3 ml 11/05/20 06:04 11/06/20 21:56 Albuterol/Iprat 2.5/0.5mg 3 Ml Ampul.Neb INHALE 3 ml RQ4H PRN Administration Shortness of Breath/Wheezing Aspirin 81 mg 11/05/20 09:00 11/07/20 07:48 Aspirin Enteric Coated 81 Mg Tablet. PO 81 mg DAILY [facility] Administration Docusate Sodium 100 mg 11/05/20 01:51 Docusate Sodium 100 Mg Capsule PO DAILY PRN Constipation Enoxaparin Sodium 40 mg 11/05/20 02:00 11/07/20 03:49 Enoxaparin Sodium 40 Mg/0.4 Ml Syringe SUBCUT 40 mg Q24H [facility] Administration Fluticasone/Vilanterol 1 puff 11/06/20 08:00 11/07/20 07:49 Fluticasone/Vilanterol 100/25 Blst.W.Dev INHALE 1 puff RDAILY [facility] Administration Gabapentin 600 mg 11/05/20 09:00 11/07/20 07:48 Gabapentin 600 Mg Tablet PO 600 mg BID [facility] Administration Insulin Glargine 50 unit 11/06/20 09:45 11/07/20 09:53 Insulin Glargine,Hum.Rec.Anlog 100 Unit/Ml 10 Ml Vial SUBCUT 50 unit BID [facility] Administration Insulin Human Lispro 0 unit 11/05/20 07:30 11/07/20 12:01 Insulin Lispro 100 Unit/Ml 3 Ml Vial SUBCUT 15 unit QIDACHS [facility] Administration Protocol Loratadine 10 mg 11/05/20 09:00 11/07/20 07:48 Loratadine 10 Mg Tablet PO 10 mg DAILY [facility] Administration Methylprednisolone Sodium Succinate 60 mg 11/06/20 12:30 11/07/20 12:01 Methylprednisolone Sod Succ 125 Mg/2 Ml Vial IVPUSH 60 mg Q8H [facility] Administration Omeprazole 20 mg 11/07/20 11:00 11/07/20 12:01 Omeprazole 20 Mg Capsule. PO 20 mg DAILY@0630 [facility] Administration Ondansetron HCl 4 mg 11/05/20 01:51 Ondansetron Hcl 4 Mg/2 Ml Vial IVPUSH Q8H PRN Nausea and Vomiting Pharmacy Consult 1 each 11/04/20 20:37 Consult Rx Perform Med Rec MISCELLANE ONCE PRN Consult order Pharmacy Consult 1 each 11/04/20 22:06 Consult Rx Perform Med Rec MISCELLANE ONCE PRN Consult order Pravastatin Sodium 20 mg 11/05/20 21:00 11/06/20 21:02 Pravastatin Sodium 20 Mg Tablet PO 20 mg BEDTIME [facility] Administration Sodium Chloride 3 ml 11/05/20 08:00 11/07/20 07:49 0.9 % Sodium Chloride Flush 3 Ml Syringe IVFLUSH 3 ml QSHIFT [facility] Administration Labs CBC & Chem 7: 11/06/20 05:36 11/06/20 05:36 Microbiology Microbiology Results: Microbiology 11/04/20 21:12 Blood - Venous Blood Culture - Preliminary No growth after 48 hours. 11/04/20 21:12 Blood - Venous Blood Culture - Preliminary No growth after 48 hours. Assessment and Plan (1) Post-acute sequelae of COVID-19 (PASC): Status: Acute Assessment and Plan: 50F presented with shortness of breath 1.Acute hypoxic respiratory failure secondary to post COVID sequela and asthma exacerbation No evidence of bacterial infection, DC antibiotics Low procalcitonin level, normal wbc , no fevers , off antibiotics she still feels sob -discuss with pulmonary: IV steroid. Will continue to monitor. Incentive spirometry, continue DuoNebs, Breo, chest physio, mucinex pulm fu pending 2.Diabetes: seems uncontrolled hold lantus add Hba1c is 12 lantus adjusted Insulin fs with adjusted coverage. 3.Morbid obesity encouraged for Weight loss
[2020-11-07] MEDS: Butalb/Acetamin/Caff 50/325/40 TABLET 1 TAB PO (13:48)
[2020-11-07] MEDS: Insulin Glargine,Hum.rec.anlog 100 UNIT/ML 10 ML VIAL 14 UNIT SUBCUT (13:49)
[2020-11-07 16:38] LABS: Glucose, Whole Blood 289 mg/dL (60-115)
--- NOTE | 2020-11-07 17:15 | MHC.CARE ---
CARE Team met with patient in to discuss her depression and anxiety symptoms. She described multiple significant losses including of her father, and beloved dog as well as loss of her home and health. Sounds as if her family is unsupportive and continues to blame her for her problems while expecting help with her own issues. Patient was quite tearful throughout the conversation. Patient admitted to having suicidal thoughts because at times feels discouraged and hopeless but emphatically denied every planning or having intention to end her life. She currently has a therapist through [facility], feels well connected with him through weekly calls. Patient stated she was under the care of a psychiatrist but while she has been homeless, in and out of the hospital and under increased stress let her medication run out and has not rescheduled. She is interested in resuming her medication as soon as possible so she can better cope with her current stressors. Patient is working with [facility] on housing. Advised patient that if a psychiatric prescriber restarts her medications she must be scheduled for an outpatient appointment. She agreed to call [facility] today. Communicated with MD and RN. CARE Team available as needed.
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
[2020-11-07] MEDS: Magnesium Hydrox/Alum Hydrox 30 ML ORAL.SUSP PO (18:44)
[2020-11-07 20:40] LABS: Glucose, Whole Blood 185 mg/dL (60-115)
[2020-11-07] MEDS: ondansetron HCL 4 MG/2 ML VIAL IVPUSH (21:12)
[2020-11-07] MEDS: Pravastatin Sodium 20 MG TABLET PO (21:18)
[2020-11-07] MEDS: ARIPiprazole 5 MG TABLET PO (21:18)
[2020-11-07] MEDS: DULoxetine HCl 30 MG CAPSULE.DR PO (21:18)
[2020-11-08] VITALS (7 sets, daily range): BP systolic 113–168; BP diastolic 67–97; PULSE 76–88; RESP 16–20; TEMP 36–36.6; O2SAT 93–98
[2020-11-08 01:32] LABS: Glucose, Whole Blood 309 mg/dL (60-115)
[2020-11-08] MEDS: Ibuprofen 400 MG TABLET PO (02:31)
[2020-11-08] MEDS: Insulin Lispro 100 UNIT/ML 3 ML VIAL SUBCUT ×6 (02:31→20:58)
[2020-11-08] MEDS: Enoxaparin Sodium 40 MG/0.4 ML SYRINGE SUBCUT (02:32)
[2020-11-08] MEDS: Omeprazole 20 MG CAPSULE.DR PO (05:21)
[2020-11-08] MEDS: methylPREDNISolone Sod Succ 125 MG/2 ML VIAL 60 MG IVPUSH ×3 (05:21→20:53)
--- NOTE | 2020-11-08 06:34 | PC.NURSE ---
Pt felt her blood glucose was low. We checked POC at 01:27 POC was 309. notified and ordered to cover per sliding scale.
[2020-11-08 07:45] LABS: Glucose, Whole Blood 254 mg/dL (60-115)
[2020-11-08] MEDS: Gabapentin 600 MG TABLET PO ×2 (08:01→20:52)
[2020-11-08] MEDS: Aspirin Enteric Coated 81 MG TABLET.DR PO (08:01)
[2020-11-08] MEDS: DULoxetine HCl 30 MG CAPSULE.DR PO (08:01)
[2020-11-08] MEDS: Loratadine 10 MG TABLET PO (08:01)
[2020-11-08] MEDS: Insulin Glargine,Hum.rec.anlog 100 UNIT/ML 10 ML VIAL 50 UNIT SUBCUT (08:01)
[2020-11-08] MEDS: 0.9 % Sodium Chloride Flush 3 ML SYRINGE IVFLUSH ×2 (08:03→16:50)
[2020-11-08] MEDS: Acetaminophen 325 MG TABLET 650 MG PO ×2 (08:07→16:50)
[2020-11-08 11:31] LABS: Glucose, Whole Blood 332 mg/dL (60-115)
--- NOTE | 2020-11-08 11:41 | P.DS_ITS ---
DS: Providers Provider Date of Service: 11/09/20 Date of admission: 11/05/20 00:35 Date of discharge: 11/09/20 Primary care physician: Leti aBllesteros MD Consults: 11/06/20 09:43 Consult to Pulmonology Routine Consulting Provider: Guillaume Montalvo Reason for consultation: ? HYPOXIA /? CT csan shows infitrates ? post covid changes Has provider been notified: No 11/07/20 10:45 Consult to Care Team Routine Comment: Reason for consultation: depression/anxiety 11/07/20 16:54 Consult to Psychiatry Routine Consulting Provider: Marleni Weinberg Reason for consultation: depression, off psych medications Has provider been notified: No DS: Diagnosis Discharge Diagnosis (1) MDD (major depressive disorder), recurrent episode, moderate: Status: Acute DS: Medications Discharge Medications Home Medications: Home Medications Medication Instructions Recorded Confirmed cetirizine 10 mg tablet 10 mg PO DAILY 06/22/20 11/05/20 glipizide 5 mg tablet 5 mg PO BID 06/22/20 11/05/20 ibuprofen 600 mg tablet 600 mg PO Q8H PRN 06/22/20 11/05/20 insulin aspart U-100 100 unit/mL See Rx Instructions .ROUTE .COMPLEX 06/22/20 11/05/20 subcutaneous solution insulin glargine 100 unit/mL (3 64 unit SUBCUT BID 06/22/20 11/05/20 mL) subcutaneous pen metformin 1,000 mg tablet 1,000 mg PO BID 06/22/20 11/05/20 omeprazole 20 mg capsule,delayed 20 mg PO BID 06/22/20 11/05/20 release pravastatin 20 mg tablet 20 mg PO DAILY 06/22/20 11/05/20 aspirin [Aspirin Low Dose] 81 mg PO DAILY 11/05/20 11/05/20 famotidine 1 tab PO BEDTIME 11/05/20 11/05/20 fluticasone propion-salmeterol 2 puff PO BID 11/05/20 11/05/20 [Advair HFA] gabapentin 600 mg PO BID 11/05/20 11/05/20 Previous Rx's Medication Instructions Recorded albuterol sulfate [Ventolin HFA] 2 puff INHALATION Q4-6H PRN #1 ea 03/23/20 fluticasone propionate 1 spray INTRANASAL BID 7 Days g 10/09/20 DS: Summary Hospital Course Hospital Course: 50-year-old female with past medical history of asthma, COVID-19 in September on 2 L of oxygen, depression, diabetes, HLD, HTN, who presents to the hospital with complaints of difficulty breathing for the past few days. Patient reports that she was using her 2 L of oxygen as well as well as her breathing treatment with no improvement of her symptoms. She is feeling weak, dizzy, significantly short of breath on minimal exertion, cough with no sputum production, denies any fever, no chills. she is feeling stabbing pain in the middle of her chest that feels like her usual heartburn, intermittent, lasting about 5 minutes and resolving spontaneously. She reports palpitations. She reports left upper quadrant abdominal pain for the past 2 days that is also intermittent with no diarrhea, some nausea with no vomiting. He reports chronic swelling in her legs and chronic pain. She is also complaining of headache all over her head, she reports history of migraine but reports that was long time ago. Denies any change in vision, no urinary symptoms. No numbness weakness or tingling. To the ED patient has vitals of temp 99?, heart rate of 105, respiratory rate of 20, blood pressure of 140/71, satting 97% on 2 L of oxygen Who ulcers significant for WBC count of 5.7, hemoglobin of 10.7, pH of 7.4, pCO2 48, BUN of 23, creatinine of 0.76, lactic acid of 2.0, alk-phos of 165, albumin of 3.1, COVID-19 negative, BNP negative. Chest CT angiogram shows no pulmonary emboli, moderately extensive bilateral ground-glass opacities worsened since 10/25/2020. This may reflect worsening manifestation of COVID pneumonia. Past medical history as below on confirmed as patient. Hospital Course problem gamboa section: Patient came with acute hypoxemic respiratory failure-which initially was thought to be multifactorial including pneumonia, asthma exacerbation, also had recent COVID pneumonia and imaging study showed post COVID sequelae: Initially patient was started on IV antibiotics, IV steroids and nebs. Subsequently patient shortness of breath was still not improving and Pulmonary was consulted- patient shortness of breath was thought to be related to post COVID sequelae /asthma exacerbation: High shortness of breath was initially not improving so high-dose IV steroids were given subsequently shortness of breath seems improved, going going to home with p.o. steroid taper, patient is to follow-up with Dr. Montalvo pulmonary in 2 weeks time for further management, slow steroid taper was given-total 12 days supply further p.o. steroid 10 mg daily which can be arranged by PCP. Respiratory going to range her home oxygen. Anxiety/depression: Patient was on anxiety medications a year ago or so again she is getting anxious: Seen by psych patient was started on Cymbalta and Abilify, outpatient psych follow-up will be arranged By psych. With psychiatric prescriber Heidi Auguste 12/04 at 1pm.She also has appointment with therapist Jonnie Chang on at 1pm. appointment with prescriber is a telehealth appointment. If she has difficulty doing telehealth, tell her that her [employer] (her insurance) has assigned her a behavioral health case manager to facilitate this appointment. DM: Fingersticks are between 200-300 in range probably related to high-dose steroid use, adjusted her Lantus to home dose, continue fingersticks with coverage in rehab. Fingersticks should come to better range is since the steroids are adjusted to p.o. low-dose now., slow taper as above and after patient complete the taper patient needs to be on 10 mg p.o. prednisone daily until sees they Pulmonary. Due to multiple issues as above including recent hypoxemia with post COVID is quietly, psych med adjustment: Discussed with case finisher decided to go to rehab, added PT, repeated COVID. Patient would benefit from less than 30 days of rehab stay. Patient was strongly advised to follow-up with her PCP for further management. Above management discussed with her in detail and she understand and in agreement with the above plan . time spent 50 minutes and 50% time spent on counseling. Significant findings: As above. Procedures performed: None. Treatment and response: As above. Complications: None., Time Spent with Patient Time attestation: Total time spent providing and/or coordinating discharge services: Discharge coordination time: Greater than 30 minutes Quality: Stroke Does the patient have a stroke diagnosis?: No Physical Exam Vital Signs: Vital Signs: Last Vital Signs Temp 97.8 F 11/08/20 11:16 Pulse 86 11/08/20 11:16 Resp 18 11/08/20 11:16 BP 128/75 11/08/20 11:16 Pulse Ox 95 11/08/20 11:16 Oxygen Flow Rate 2 11/04/20 20:45 Body Mass Index 45.8 CVS: tachycardic heart rate and rhythm. Pulses normal. Respiratory: has fair air entry, breath sounds diminshed at bases. Abdomen: Soft and nontender. Skin: Skin warm and dry. Normal skin color. Normal skin turgor. Extremities: No lower extremity edema. no cyanosis Neuro: Oriented X 3. No motor deficit. No sensory deficit. DS: Data Data Completed and Pending Labs on day of discharge: Laboratory Results - last 24 hr 11/07/20 11/07/20 11/07/20 11:38 16:26 20:31 POC Glucose 398 H* 289 H 185 H 11/08/20 11/08/20 11/08/20 01:27 07:26 11:12 POC Glucose 309 H 254 H 332 H Preliminary micro results at discharge 11/04/20 21:12 Blood Culture - Preliminary Blood - Venous No growth after 48 hours. 11/04/20 21:12 Blood Culture - Preliminary Blood - Venous No growth after 48 hours. Discharge Plan Discharge Patient Disposition: er [facility] Discharge Diagnosis: asthma exacerbation, post-acute sequelae of covid-19. Referrals: Leti Ballesteros MD [Primary Care Provider] - 1 Week Discharge Medications: New aripiprazole [Abilify] 5 mg Tablet 5 mg PO BEDTIME Qty: 30 RF: 0 duloxetine 30 mg Capsule,Delayed Release(Dr/Ec) 30 mg PO DAILY Qty: 30 RF: 0 prednisone 10 mg tablet See Taper mg PO DAILY Qty: 30 RF: 0 Continued albuterol sulfate [Ventolin HFA] 90 mcg/actuation HFA aerosol inhaler 2 puff inhalation Q4-6H PRN (Reason: shortness of breath or wheezing) Qty: 1 RF: 0 fluticasone propionate 50 mcg/actuation Hartly,Suspension 1 spray intranasal BID 7 Days RF: 0 gabapentin 600 mg tablet 600 mg PO BID RF: 0 aspirin [Aspirin Low Dose] 81 mg Tablet,Delayed Release (Dr/Ec) 81 mg PO DAILY RF: 0 famotidine 40 mg tablet 1 tab PO BEDTIME RF: 0 Advair HFA 115-21 mcg/actuation HFA aerosol inhaler 2 puff PO BID RF: 0 insulin aspart U-100 100 unit/mL solution See Rx Instructions .ROUTE .COMPLEX RF: 0 omeprazole 20 mg capsule,delayed release(DR/EC) 20 mg PO BID RF: 0 metformin 1,000 mg tablet 1,000 mg PO BID RF: 0 glipizide 5 mg tablet 5 mg PO BID RF: 0 ibuprofen 600 mg tablet 600 mg PO Q8H PRN (Reason: pain) RF: 0 cetirizine 10 mg tablet 10 mg PO DAILY RF: 0 insulin glargine 100 unit/mL (3 mL) insulin pen 64 unit subcut BID RF: 0 pravastatin 20 mg tablet 20 mg PO DAILY RF: 0 Discharge Orders: Discharge Order (Routine); Ordered 11/08/20 Ordered By: Kervin Anguiano Diet: advance to usual diet and diabetic diet Activity on Discharge: As tolerated Stand Alone Forms: Patient Portal Discharge page Care Plan Goals: Patient came with asthma exacerbation, also had recent COVID pneumonia and imaging study showed post COVID sequelae: High shortness of breath was initially not improving so high-dose IV steroids were given subsequently shortness of breath seems improved, going going to home with p.o. steroid taper, patient is to follow-up with Dr. Montalvo pulmonary in 2 weeks time for further management, slow steroid taper was given-total 12 days supply further p.o. steroid 10 mg daily which can be arranged by PCP. Respiratory going to range her home oxygen. Anxiety/depression: Patient was on anxiety medications a year ago or so again she is getting anxious: Seen by psych patient was started on Cymbalta and Abilify, outpatient psych follow-up will be arranged By psych. With psychiatric prescriber Heidi Auguste 12/04 at 1pm.She also has appointment with therapist Jonnie Chang on at 1pm. appointment with prescriber is a telehealth appointment. If she has difficulty doing telehealth, tell her that her [employer] (her insurance) has assigned her a behavioral health case manager to facilitate this appointment. Patient was strongly advised to follow-up with her PCP for further management. Above management discussed with her in detail and she understand and in agreement with the above plan . Health Concerns: as above. Plan of Treatment: as above. Assessment: as above.
--- NOTE | 2020-11-08 11:49 | MHC.CM.PN ---
nurse continuum of care manager note electronic medical record reviewed along with case discussed with staff nurse and hospitalist met with patient she has her car here in the parking lot, she drove herself to the hospital with her portable oxygen , but this has run out, called made to respiratory department here they will give her a portable tank to take home, per documentation patient has hypoxic respiratory failure post covid symptoms, diabetes asthma, she also reported that she has had history of depression for many years and now has voiced thAT SHE HAs history of depression and this year this has been increasing she is followed by a therapist at [facility] (shanice), but has not seen a prescriber and recommendation for consult for psych for medication management was called , patient was seen yesterday and psychiatric medications were discharge plqn OFFERED VNA AND PATIENT DECLINED return to her [facility]OM[facility] PROGRAM THEY PAY FOR HER TO STAY AT THE [place] [id number] IN [facility] SELF RESUME HER THERAPY SERVICES AT [facility] and has been off medication for the past year, TRANSPORTATION SHE HAS HER CAR IN THE [facility] LOT SELF RESUMPTION OF HER HOME O2 WITH [employer] [facility] THEArpist to provide a portable oxygen tank to provide her with o2 as her portable shoulder tank rqn out of o2
--- NOTE | 2020-11-08 13:09 | HO.PM.IMPN ---
Subjective Subjective Date of Service: 11/09/20 Interval History: sob seems improving Review of Systems post covid seaqulae Physical Exam Vital Signs: Vital Signs: Last Vital Signs Temp 97.8 F 11/08/20 11:16 Pulse 86 11/08/20 11:16 Resp 18 11/08/20 11:16 BP 128/75 11/08/20 11:16 Pulse Ox 95 11/08/20 11:16 Oxygen Flow Rate 2 11/04/20 20:45 Body Mass Index 45.8 CVS: regular heart rate and rhythm. Pulses normal. Respiratory: has fair air entry, breath sounds diminshed at bases. Abdomen: Soft and nontender. Skin: Skin warm and dry. Normal skin color. Normal skin turgor. Extremities: No lower extremity edema. no cyanosis Neuro: Oriented X 3. No motor deficit. No sensory deficit. Objective Data Current Medications Generic Name Dose Route Start Last Admin Trade Name Freq PRN Reason Stop Dose Admin Acetaminophen 650 mg 11/05/20 01:51 11/08/20 08:07 Acetaminophen 325 Mg Tablet PO 650 mg Q6H PRN Administration Pain, Mild (Pain Scale 1-3) Al Hydroxide/Mg Hydroxide 30 ml 11/07/20 17:25 11/07/20 18:44 Magnesium Hydrox/Alum Hydrox 30 Ml Oral.Susp PO 30 ml Q6H PRN Administration GI Upset Albuterol Sulfate 2 puff 11/05/20 08:28 Albuterol Sulfate 90 Mcg 8 Gm Inhaler INHALE Q4H PRN shortness of breath or wheezing Albuterol/Ipratropium 3 ml 11/05/20 06:04 11/06/20 21:56 Albuterol/Iprat 2.5/0.5mg 3 Ml Ampul.Neb INHALE 3 ml RQ4H PRN Administration Shortness of Breath/Wheezing Aripiprazole 5 mg 11/07/20 21:00 11/07/20 21:18 Aripiprazole 5 Mg Tablet PO 5 mg BEDTIME BRIDGER Administration Aspirin 81 mg 11/05/20 09:00 11/08/20 08:01 Aspirin Enteric Coated 81 Mg Tablet. PO 81 mg DAILY BRIDGER Administration Docusate Sodium 100 mg 11/05/20 01:51 Docusate Sodium 100 Mg Capsule PO DAILY PRN Constipation Duloxetine HCl 30 mg 11/07/20 18:10 11/08/20 08:01 Duloxetine Hcl 30 Mg Capsule. PO 30 mg DAILY BRIDGER Administration Enoxaparin Sodium 40 mg 11/05/20 02:00 11/08/20 02:32 Enoxaparin Sodium 40 Mg/0.4 Ml Syringe SUBCUT 40 mg Q24H BRIDGER Administration Fluticasone/Vilanterol 1 puff 11/06/20 08:00 11/08/20 11:12 Fluticasone/Vilanterol 100/25 Blst.W.Dev INHALE Not Given RDAILY [facility] Gabapentin 600 mg 11/05/20 09:00 11/08/20 08:01 Gabapentin 600 Mg Tablet PO 600 mg BID BRIDGER Administration Guaifenesin 600 mg 11/07/20 12:32 Guaifenesin La 600 Mg Tab.Er.12h PO BID PRN sob Insulin Glargine 50 unit 11/06/20 09:45 11/08/20 08:01 Insulin Glargine,Hum.Rec.Anlog 100 Unit/Ml 10 Ml Vial SUBCUT 50 unit BID BRIDGER Administration Insulin Human Lispro 0 unit 11/05/20 07:30 11/08/20 11:16 Insulin Lispro 100 Unit/Ml 3 Ml Vial SUBCUT 8 unit QIDACHS [facility] Administration Protocol Loratadine 10 mg 11/05/20 09:00 11/08/20 08:01 Loratadine 10 Mg Tablet PO 10 mg DAILY BRIDGER Administration Methylprednisolone Sodium Succinate 60 mg 11/06/20 12:30 11/08/20 12:43 Methylprednisolone Sod Succ 125 Mg/2 Ml Vial IVPUSH 60 mg Q8H BRIDGER Administration Omeprazole 20 mg 11/07/20 11:00 11/08/20 05:21 Omeprazole 20 Mg Capsule. PO 20 mg DAILY@0630 [facility] Administration Ondansetron HCl 4 mg 11/05/20 01:51 11/07/20 21:12 Ondansetron Hcl 4 Mg/2 Ml Vial IVPUSH 4 mg Q8H PRN Administration Nausea and Vomiting Pharmacy Consult 1 each 11/04/20 20:37 Consult Rx Perform Med Rec MISCELLANE ONCE PRN Consult order Pharmacy Consult 1 each 11/04/20 22:06 Consult Rx Perform Med Rec MISCELLANE ONCE PRN Consult order Pravastatin Sodium 20 mg 11/05/20 21:00 11/07/20 21:18 Pravastatin Sodium 20 Mg Tablet PO 20 mg BEDTIME BRIDGER Administration Sodium Chloride 3 ml 11/05/20 08:00 11/08/20 08:03 0.9 % Sodium Chloride Flush 3 Ml Syringe IVFLUSH 3 ml QSHIFT BRIDGER Administration Labs CBC & Chem 7: 11/06/20 05:36 11/06/20 05:36 Microbiology Microbiology Results: Microbiology 11/04/20 21:12 Blood - Venous Blood Culture - Preliminary No growth after 48 hours. 11/04/20 21:12 Blood - Venous Blood Culture - Preliminary No growth after 48 hours. Assessment and Plan (1) Post-acute sequelae of COVID-19 (PAS): Status: Acute Assessment and Plan: 50F presented with shortness of breath 1.Acute hypoxic respiratory failure secondary to post COVID sequela and asthma exacerbation No evidence of bacterial infection, DC antibiotics Low procalcitonin level, normal wbc , no fevers , off antibiotics she still feels sob -discuss with pulmonary: IV steroid. Will continue to monitor. Incentive spirometry, continue DuoNebs, Breo, chest physio, mucinex pulm fu pending 2.Diabetes: seems uncontrolled hold lantus add Hba1c is 12 lantus adjusted Insulin fs with adjusted coverage. Patient diabetes is still uncontrolled we adjusted Lantus again., also put her on p.o. steroid, DC IV steroid. Will monitor her sugars today and subsequently planned discharge in the a.m.. 3.Morbid obesity encouraged for Weight loss
--- NOTE | 2020-11-08 14:44 | MHC.CM.NN ---
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 ASKED BY THE STAFF NURSE TO COME BACK AND SEE PATIENT , NURSING HAS SOME CONCERNS THAT SHE IS NOT STRONG ENOUGH TO GO HOME,, AT TIMES SHE WALKS WITH THE WALKER WITH OXYGEN AND IS VERY WEAKEND AND SHORT OF BREATH AND DE SATS , OTHER TIMES SHE SEEMS OK SHE HAD HISTORY OF HAVING COVID SHE WAS COVID NEGATIVE ON ADMISSION, HER BLOOD SUGARS HAVE BEEN ELEVATED WELL HER BLOOD PRESSURE TODAY , YESTERDAY SHE SAW THE PSYCHIATRIST FOR MEDICATION MANAGEMENT RECOMMENDATIONS, ( SHE HAS BEEN OFF HER PSYCH MEDS FOR OVER A YEAR AND JUST RECENTLY WHILE IN THE HOSPITAL STARTED NEW ONES. PHYSICAL THERAPY EVALUATION REQUESTED, AND RAPID COVID TEST , SHE WAS ACCEPTED BY [facility] AND THEY HAVE BED AVAILABILITY, THEY ARE GOING FOR INSURANCE AUTHORIZATION. DISCHARGE [facility] FOR STR ANTICIPATED LENGTH OF STAY LESS THAN 30 DAYS (PENDING INS AUTH ACTION BLS, PATIENTS DISCHAGRE, HELD SECONDARY TO ELEVATED BLOOD SUGARS
[2020-11-08 14:47] LABS: Glucose, Whole Blood 306 mg/dL (60-115)
[2020-11-08 16:25] LABS: Glucose, Whole Blood 337 mg/dL (60-115)
[2020-11-08 20:27] LABS: COVID-19 Test Negative (Negative); IDNOW Serial# 08D9AD1C
[2020-11-08 20:37] LABS: Strep Pneumo Ag urine Not Detected (Not Detected)
[2020-11-08 20:38] LABS: Glucose, Whole Blood 299 mg/dL (60-115)
[2020-11-08] MEDS: ARIPiprazole 5 MG TABLET PO (20:53)
[2020-11-08] MEDS: Insulin Glargine,Hum.rec.anlog 100 UNIT/ML 10 ML VIAL 64 UNIT SUBCUT (20:56)
[2020-11-09 01:07] LABS: Legionella Ag Urine Not Detected (Not Detected)
[2020-11-09] MEDS: Acetaminophen 325 MG TABLET 650 MG PO ×2 (02:24→08:20)
[2020-11-09] MEDS: Enoxaparin Sodium 40 MG/0.4 ML SYRINGE SUBCUT (02:24)
[2020-11-09] MEDS: 0.9 % Sodium Chloride Flush 3 ML SYRINGE IVFLUSH (02:26)
[2020-11-09 03:18] VITALS: BP 144/82; PULSE 75; RESP 18; TEMP 36.1; O2SAT 91
[2020-11-09] MEDS: methylPREDNISolone Sod Succ 125 MG/2 ML VIAL 60 MG IVPUSH (05:12)
[2020-11-09] MEDS: Omeprazole 20 MG CAPSULE.DR PO (05:12)
[2020-11-09 07:19] VITALS: BP 153/76; PULSE 71; RESP 18; TEMP 36.3; O2SAT 93
[2020-11-09 08:00] LABS: Glucose, Whole Blood 239 mg/dL (60-115)
[2020-11-09] MEDS: Insulin Lispro 100 UNIT/ML 3 ML VIAL SUBCUT (08:19)
[2020-11-09] MEDS: Insulin Glargine,Hum.rec.anlog 100 UNIT/ML 10 ML VIAL 64 UNIT SUBCUT (08:19)
[2020-11-09] MEDS: DULoxetine HCl 30 MG CAPSULE.DR PO (08:20)
[2020-11-09] MEDS: predniSONE 20 MG TABLET 40 MG PO (08:20)
[2020-11-09] MEDS: Gabapentin 600 MG TABLET PO (08:20)
[2020-11-09] MEDS: Aspirin Enteric Coated 81 MG TABLET.DR PO (08:21)
[2020-11-09] MEDS: Loratadine 10 MG TABLET PO (08:21)
[2020-11-09] MEDS: Fluticasone/Vilanterol 100/25 BLST.W.DEV 1 PUFF INHALE (08:41)
[2020-11-09 08:42] VITALS: PULSE 73; O2SAT 92
== END 2020-11-09 11:09 | disposition skilled nursing facility (03) | DRG 202 ==
LOC: HO.ED 11-05 00:39 → HO.EDOVER 11-05 01:01 → HO.S3 11-05 05:46
PROVIDERS: Internal Medicine; Admitting Provider Internal Medicine; Emergency Provider Emergency Medicine; PCP Internal Medicine; Visit Provider Internal Medicine
DX: J45.41 Moderate persistent asthma with (acute) exacerbation (principal); J96.01 Acute respiratory failure with hypoxia; Z68.42 Body mass index [BMI] 45.0-49.9, adult; F33.1 Major depressive disorder, recurrent, moderate; J98.8 Other specified respiratory disorders; K21.9 Gastro-esophageal reflux disease without esophagitis; B94.8 Sequelae of other specified infectious and parasitic diseases; E11.9 Type 2 diabetes mellitus without complications; E66.01 Morbid (severe) obesity due to excess calories; Z20.822 Contact with and (suspected) exposure to COVID-19; Z99.81 Dependence on supplemental oxygen; Z87.891 Personal history of nicotine dependence; Z79.4 Long term (current) use of insulin; Z79.51 Long term (current) use of inhaled steroids; Z79.82 Long term (current) use of aspirin; Z79.899 Other long term (current) drug therapy
CPT/HCPCS: 36415; 71045; 71275; 80048; 80076; 82947; 83036; 83605; 83735; 83880; 84145; 84484; 85025; 85379; 87040; 87449; 87633; 87635; 87899; 93005; 94640; 96365; 96366; 96368; 96375; 97161; 99285; 99291; J0456; J0692; J0696; J1650; J2270; J2405; J2930; J3370; Q9967

== ENCOUNTER 2020-11-10 06:32 | Outpatient (REF) | payer OTHER, SELFPAY ==
[2020-11-10 07:05] LABS: Hematocrit 37.6 % (37-47); Hemoglobin 12.4 g/dl (12.0-16.0); Mean Corpuscular Hemoglobin 29.5 pg (27.0-33.0); Mean Corpuscular Volume 89.5 fL (80-98); Mean Platelet Volume 8.9 fL (9.4-12.3); Platelet Count 285 X10*3/uL (160-400); Red Cell Distribution Width 13.2 % (11.0-16.0); White Blood Count 12.7 X10*3/uL (4.8-10.8)
[2020-11-10 07:58] LABS: Alanine Aminotransferase 36 U/L (0-31); Albumin Level 3.3 g/dL (3.5-5.0); Alkaline Phosphatase 127 U/L (39-117); Anion Gap 15 (12-20); Aspartate Amino Transferase 49 U/L (5-31); Bilirubin Total 0.4 mg/dL (0.0-1.0); Blood Urea Nitrogen 28 mg/dL (9-16); Calcium 8.9 mg/dL (8.4-10.2); Carbon Dioxide 26 mmol/L (22-29); Chloride 104 mmol/L (96-108); Estimated Glomerular Filt Rate > 60; Glucose Random 31 mg/dL (60-115); Potassium 3.7 mmol/L (3.3-5.1); Sodium 141 mmol/L (135-145); Total Protein 5.7 g/dL (6.5-8.0)
== END 2020-11-10 06:33 | disposition home or self-care (01) ==
LOC: HO.MMNH1L 06:32
PROVIDERS: Visit Provider Family Medicine
DX: I10 Essential (primary) hypertension (principal); E78.00 Pure hypercholesterolemia, unspecified
CPT/HCPCS: 36415; 80053; 85027

== ENCOUNTER 2020-11-13 | Outpatient (REF) | payer OTHER, SELFPAY ==
[2020-11-13 07:18] LABS: Hematocrit 34.6 % (37-47); Hemoglobin 11.3 g/dl (12.0-16.0); Mean Corpuscular HGB Conc 32.7 g/dl (31.0-35.0); Mean Corpuscular Hemoglobin 29.4 pg (27.0-33.0); Mean Corpuscular Volume 90.1 fL (80-98); Mean Platelet Volume 8.8 fL (9.4-12.3); Platelet Count 154 X10*3/uL (160-400); Red Blood Count 3.84 X10*6/uL (4.20-5.50); Red Cell Distribution Width 13.4 % (11.0-16.0); White Blood Count 6.3 X10*3/uL (4.8-10.8)
[2020-11-13 07:34] LABS: Anion Gap 11 (12-20); Blood Urea Nitrogen 19 mg/dL (9-16); Calcium 8.3 mg/dL (8.4-10.2); Carbon Dioxide 31 mmol/L (22-29); Chloride 105 mmol/L (96-108); Estimated Glomerular Filt Rate > 60; Glucose Random 93 mg/dL (60-115); Sodium 143 mmol/L (135-145)
== END 2020-11-13 00:01 | disposition home or self-care (01) ==
LOC: HO.MMNH1L
PROVIDERS: Visit Provider Family Medicine
DX: I10 Essential (primary) hypertension (principal); E78.5 Hyperlipidemia, unspecified
CPT/HCPCS: 36415; 80048; 85027

== ENCOUNTER 2020-11-17 20:45 | Emergency (ER) | payer OTHER, SELFPAY ==
--- NOTE | 2020-11-17 | ECG_ITS ---
Test Reason : DIZZYNESS Blood Pressure : / mmHG Vent. Rate : 088 BPM Atrial Rate : 088 BPM P-R Int : 154 ms QRS Dur : 086 ms QT Int : 366 ms P-R-T Axes : 035 006 029 degrees QTc Int : 442 ms Normal sinus rhythm Possible Inferior infarct , age undetermined Abnormal ECG When compared with ECG of 05-NOV-2020 16:28, No significant change was found Referred By: Lana Pan Electronically Signed By:Jonathan Torres
--- NOTE | ~2020-11-17 | XR_ITS ---
EXAMINATION: PORTABLE CHEST 1 VIEW CLINICAL INFORMATION: Shortness of breath . COMPARISON: 11/04/2020. TECHNIQUE: Portable frontal view of the chest was obtained. FINDINGS: Lungs are mildly hypoexpanded. Persistent patchy bilateral airspace disease is again seen with a distribution similar to the prior chest x-ray. This airspace disease is also well demonstrated on the 11/05/2020 CT scan. No significant effusion, overt edema, or pneumothorax. Cardiac silhouette within normal limits for size. XR/XR chest 1V IMPRESSION: Persistent patchy bilateral airspace disease with a distribution similar to the prior study.
[2020-11-17 20:50] VITALS: BMI 41.1
[2020-11-17 20:57] VITALS: BP 126/73; PULSE 89; RESP 16; TEMP 36.8; O2SAT 99
[2020-11-17 21:01] LABS: Glucose, Whole Blood 93 mg/dL (60-115)
[2020-11-17 21:45] LABS: MANUAL DIFF FLAG NO
[2020-11-17 21:46] LABS: Basophils Percent Auto 0.2 % (0-2); Eosinophils Absolute Auto 0.1 X10*3/uL (0.0-0.4); Eosinophils Percent Auto 0.9 % (0-4); Hematocrit 37.3 % (37-47); Hemoglobin 12.6 g/dl (12.0-16.0); Imm Gran Abs Auto 0.07 X10*3/uL (0.00-0.03); Imm Gran Pct Auto 0.8 % (0.0-0.4); Lymphocytes Absolute Auto 2.4 X10*3/uL (1.2-4.9); Lymphocytes Percent Auto 26.3 % (20-40); Mean Corpuscular HGB Conc 33.8 g/dl (31.0-35.0); Mean Corpuscular Hemoglobin 29.7 pg (27.0-33.0); Mean Platelet Volume 8.8 fL (9.4-12.3); Monocytes Absolute Auto 0.3 X10*3/uL (0.1-1.2); Monocytes Percent Auto 3.3 % (2-11); Neutrophils Absolute Auto 6.1 X10*3/uL (2.0-8.3); Neutrophils Percent Auto 68.5 % (45-73); Platelet Count 200 X10*3/uL (160-400); Red Blood Count 4.24 X10*6/uL (4.20-5.50)
[2020-11-17 22:11] LABS: Alanine Aminotransferase 26 U/L (0-31); Albumin Level 3.9 g/dL (3.5-5.0); Alkaline Phosphatase 133 U/L (39-117); Anion Gap 16 (12-20); Aspartate Amino Transferase 21 U/L (5-31); Bilirubin Total 0.6 mg/dL (0.0-1.0); Blood Urea Nitrogen 13 mg/dL (9-16); Calcium 8.6 mg/dL (8.4-10.2); Carbon Dioxide 30 mmol/L (22-29); Chloride 98 mmol/L (96-108); Creatinine Clr Calc Pharmacy 87.1; Estimated Glomerular Filt Rate > 60; Glucose Random 89 mg/dL (60-115); Potassium 4.5 mmol/L (3.3-5.1); Sodium 139 mmol/L (135-145); Total Protein 6.4 g/dL (6.5-8.0)
[2020-11-17 22:34] VITALS: BP 95/54; PULSE 100; RESP 18; TEMP 36.8; O2SAT 94
[2020-11-17 22:37] VITALS: BP 121/70; PULSE 82
[2020-11-17 22:38] VITALS: BP 89/55; PULSE 89
[2020-11-17 22:40] VITALS: BP 94/54; PULSE 93
--- NOTE | 2020-11-17 22:44 | ED.DIZZY ---
HPI - Dizziness General Chief Complaint: Dizziness Stated Complaint: DIZZINESS,CONFUSION,DIARRHEA Time Seen by Provider: 11/17/20 20:57 Source: patient Mode of arrival: ambulatory (But uses walker at baseline) History of Present Illness HPI Narrative: This is a 50-year-old female who complains of dizziness on position change as well as multiple episodes of diarrhea for 2 days without reports of fever, chills, GI symptoms, decrease in appetite, urinary pain/burning/frequency. In addition, patient denies any chest pain/palpitations and states that she has remained short of breath since her diagnosis of COVID-19 in September. Related Data Home Medications Medication Instructions Recorded Confirmed albuterol sulfate 1 puff INHALATION Q6H PRN 11/17/20 11/17/20 albuterol sulfate [Ventolin HFA] 1 puff INHALATION Q6H PRN 11/17/20 11/17/20 aspirin 1 tab PO DAILY 11/17/20 11/17/20 blood sugar diagnostic [FreeStyle 11/17/20 11/17/20 Lite Strips] diclofenac sodium 1 ea TOPICAL TID 11/17/20 11/17/20 diltiazem HCl 1 cap PO DAILY 11/17/20 11/17/20 famotidine 1 tab PO DAILY 11/17/20 11/17/20 fluticasone propion-salmeterol 2 puff INHALATION BID 11/17/20 11/17/20 [Advair HFA] fluticasone propionate 2 spray INTRANASAL DAILY 11/17/20 11/17/20 gabapentin 1 cap PO BID 11/17/20 11/17/20 gabapentin 600 mg PO DAILY 11/17/20 11/17/20 glipizide 1 tab PO BID 11/17/20 11/17/20 ibuprofen 1 tab PO Q8H PRN 11/17/20 11/17/20 insulin aspart U-100 [Novolog 16 unit SUBCUT TIDWMEAL 11/17/20 11/17/20 U-100 Insulin aspart] insulin glargine [Lantus Solostar 62 unit SUBCUT BID 11/17/20 11/17/20 U-100 Insulin] loratadine 1 tab PO DAILY 11/17/20 11/17/20 metformin 1 tab PO BID 11/17/20 11/17/20 omeprazole 1 cap PO DAILY 11/17/20 11/17/20 Allergies Allergy/AdvReac Type Severity Reaction Status Date / Time adhesive tape [ADHESIVE TAPE] Allergy Intermediate BLISTERS Verified 11/04/20 20:44 tramadol [TRAMADOL] Allergy Intermediate NAUSEA & Verified 11/04/20 20:44 VOMITING, vomiting oxycodone [OXYCODONE] AdvReac Unknown ITCHING Verified 11/04/20 20:44 Adhesive tape Allergy Unknown Unknown Uncoded 03/17/20 17:31 adhesive tape Allergy Unknown Unknown Uncoded 03/17/20 17:31 Review of Systems Review of Systems: Pertinent positives and negatives as stated in HPI 10 point review of systems otherwise negative. PMFSH Past Medical History Source: nursing notes reviewed Medical History Asthma delivery delivered Cholecystectomy planned COVID-19 Depression Diabetes Hernia of abdominal wall High cholesterol HTN (hypertension) Tachycardia Surgical History H/O foot surgery Social History Social History Household Members: Other Household Members Other:: son Housing: Homeless Housing Other:: stays in hotel waiting for housing Do you presently have visiting nurse or other home services: No Alcohol intake: never Patient Tobacco Use Status: Former Tobacco user Second Hand Smoke Exposure: No Use of substances other than those prescribed or required for medical reasons: No Substance Use Type: Marijuana Advance Directives: No Advance Directives Information Provided: No service: No Current occupational status: disabled Physical Exam Vital Signs: Vital Signs: Last Vital Signs Temp 98.3 F 11/17/20 22:34 Pulse 82 11/18/20 01:55 Resp 18 11/18/20 01:55 BP 131/66 11/18/20 01:55 Pulse Ox 95 11/18/20 00:00 Body Mass Index 41.1 VITAL SIGNS: Reviewed. GENERAL: Well developed, well nourished, in no acute distress. HEAD: Normocephalic/atraumatic EYES: PERRLA, EOMI OROPHARYNX: no oral lesions noted, posterior pharynx clear NECK: Supple, no adenopathy LUNGS: Bibasilar rales noted, no tachypnea. SpO2<94> CARDIOVASCULAR: Regular rate and rhythm without noted murmurs, no JVD or lower extremity edema. ABDOMEN: Obese, Soft, non-tender, non-distended with bowel sounds. NEUROLOGIC: Alert and oriented x 4. Strength and sensation to light touch were grossly intact x 4, no facial asymmetry, no pronator drift, cranial nerves 2-12 are grossly intact. Course Course Course Narrative: This is a 50-year-old female with history and clinical exam consistent with likely dizziness secondary to hypovolemia due to multiple episodes of diarrhea. Will evaluate for possible C diff. Orthostatics are positive. On re-evaluation after 2 L patient is feeling improved, but states she still feels a little ?wobbly?. Patient received an additional 1 L of IV fluids and is now able to ambulate steadily with the walker. Review of all investigations negative for evidence of infection, anemia, arrhythmia as orthostatics were positive and there has been no further episodes of diarrhea suspect that dizziness and fall were secondary to hypovolemia due to diarrhea. Patient discharged back to the rehab center in stable condition. MDM - Dizziness Lab Data Result diagrams: 11/17/20 21:37 11/17/20 21:37 Labs: Lab Results 11/17/20 11/17/20 11/17/20 Range/Units 20:58 21:37 21:37 WBC 9.0 (4.8-10.8) X10*3/uL RBC 4.24 (4.20-5.50) X10*6/uL Hgb 12.6 (12.0-16.0) g/dl Hct 37.3 (37-47) % MCV 88.0 (80-98) fL MCH 29.7 (27.0-33.0) pg MCHC 33.8 (31.0-35.0) g/dl RDW 13.0 (11.0-16.0) % Plt Count 200 D (160-400) X10*3/uL MPV 8.8 L (9.4-12.3) fL Immature Gran % (Auto) 0.8 H (0.0-0.4) % Neut % (Auto) 68.5 (45-73) % Lymph % (Auto) 26.3 (20-40) % Divide % (Auto) 3.3 (2-11) % Eos % (Auto) 0.9 (0-4) % Baso % (Auto) 0.2 (0-2) % Lymph # (Auto) 2.4 (1.2-4.9) X10*3/uL Divide # (Auto) 0.3 (0.1-1.2) X10*3/uL Eos # (Auto) 0.1 (0.0-0.4) X10*3/uL Baso # (Auto) 0.0 (0.0-0.2) X10*3/uL Abs Immat Gran (auto) 0.07 H (0.00-0.03) X10*3/uL Absolute Neuts (auto) 6.1 (2.0-8.3) X10*3/uL Absolute Nucleated RBC 0.000 (0.0-0.012) X10*3/uL Nucleated RBC % (auto) 0.0 (0.0-0.2) /100WBC Sodium 139 (135-145) mmol/L Potassium 4.5 (3.3-5.1) mmol/L Chloride 98 (96-108) mmol/L Carbon Dioxide 30 H (22-29) mmol/L Anion Gap 16 (12-20) BUN 13 (9-16) mg/dL Creatinine 0.91 (0.5-1.4) mg/dL Estim Creat Clear Calc 87.1 Estimated GFR > 60 POC Glucose 93 (60-115) mg/dL Random Glucose 89 (60-115) mg/dL Lactic Acid (0.5-2.0) mmol/L Calcium 8.6 (8.4-10.2) mg/dL Total Bilirubin 0.6 (0.0-1.0) mg/dL AST 21 D (5-31) U/L ALT 26 (0-31) U/L Alkaline Phosphatase 133 H (39-117) U/L B-Natriuretic Peptide (<100) pg/mL Total Protein 6.4 L (6.5-8.0) g/dL Albumin 3.9 (3.5-5.0) g/dL Urine Color Urine Appearance Urine pH (5.0-8.0) Ur Specific [place] (1.005-1.025) Urine Protein (NEG-TRACE) MG/DL Urine Glucose (UA) (NEG) MG/DL Urine Ketones (NEG) MG/DL Urine Blood (NEG) Urine Nitrite (NEG) Ur Leukocyte Esterase (NEG) 11/17/20 11/17/20 11/18/20 Range/Units 21:37 21:37 03:56 WBC (4.8-10.8) X10*3/uL RBC (4.20-5.50) X10*6/uL Hgb (12.0-16.0) g/dl Hct (37-47) % MCV (80-98) fL MCH (27.0-33.0) pg MCHC (31.0-35.0) g/dl RDW (11.0-16.0) % Plt Count (160-400) X10*3/uL MPV (9.4-12.3) fL Immature Gran % (Auto) (0.0-0.4) % Neut % (Auto) (45-73) % Lymph % (Auto) (20-40) % Divide % (Auto) (2-11) % Eos % (Auto) (0-4) % Baso % (Auto) (0-2) % Lymph # (Auto) (1.2-4.9) X10*3/uL Divide # (Auto) (0.1-1.2) X10*3/uL Eos # (Auto) (0.0-0.4) X10*3/uL Baso # (Auto) (0.0-0.2) X10*3/uL Abs Immat Gran (auto) (0.00-0.03) X10*3/uL Absolute Neuts (auto) (2.0-8.3) X10*3/uL Absolute Nucleated RBC (0.0-0.012) X10*3/uL Nucleated RBC % (auto) (0.0-0.2) /100WBC Sodium (135-145) mmol/L Potassium (3.3-5.1) mmol/L Chloride (96-108) mmol/L Carbon Dioxide (22-29) mmol/L Anion Gap (12-20) BUN (9-16) mg/dL Creatinine (0.5-1.4) mg/dL Estim Creat Clear Calc Estimated GFR POC Glucose (60-115) mg/dL Random Glucose (60-115) mg/dL Lactic Acid 2.0 (0.5-2.0) mmol/L Calcium (8.4-10.2) mg/dL Total Bilirubin (0.0-1.0) mg/dL AST (5-31) U/L ALT (0-31) U/L Alkaline Phosphatase (39-117) U/L B-Natriuretic Peptide < 10 (<100) pg/mL Total Protein (6.5-8.0) g/dL Albumin (3.5-5.0) g/dL Urine Color YELLOW Urine Appearance CLEAR Urine pH 5.5 (5.0-8.0) Ur Specific [place] <= 1.005 (1.005-1.025) Urine Protein NEG (NEG-TRACE) MG/DL Urine Glucose (UA) NEG (NEG) MG/DL Urine Ketones NEG (NEG) MG/DL Urine Blood NEG (NEG) Urine Nitrite NEG (NEG) Ur Leukocyte Esterase NEG (NEG) ECG Data Attestation: I personally reviewed and interpreted this ECG as follows: Prior ECG tracings: available for review (11/05/2020 no acute changes on comparison) Interpretation: Normal sinus rhythm, HR-88, no evidence of acute ischemia, CA/QRS/QTC are within normal limits. Discharge Plan Discharge Clinical Impression: Diarrhea, Dizziness, Hypovolemia, Dehydration Patient Disposition: Xfer Other Instructions: Dehydration (ED) Additional Instructions: Resume all home medications as prescribed. Return to the ER for any acute worsening of symptoms. Prescriptions: No Action gabapentin 600 mg tablet 600 mg PO DAILY RF: 0 aspirin 325 mg tablet 1 tab PO DAILY RF: 0 diltiazem HCl 240 mg capsule,extended release 24hr 1 cap PO DAILY RF: 0 famotidine 40 mg tablet 1 tab PO DAILY RF: 0 (DME) FreeStyle Lite Strips Strip MISCELLANEOUS TID RF: 0 insulin aspart U-100 [Novolog U-100 Insulin aspart] 100 unit/mL solution 16 unit subcut TIDWMEAL RF: 0 metformin 1,000 mg tablet 1 tab PO BID RF: 0 gabapentin 300 mg capsule 1 cap PO BID RF: 0 omeprazole 20 mg capsule,delayed release(DR/EC) 1 cap PO DAILY RF: 0 ibuprofen 600 mg tablet 1 tab PO Q8H PRN (Reason: pain) RF: 0 albuterol sulfate [Ventolin HFA] 90 mcg/actuation HFA aerosol inhaler 1 puff inhalation Q6H PRN (Reason: wheezing) RF: 0 albuterol sulfate 90 mcg/actuation HFA aerosol inhaler 1 puff inhalation Q6H PRN (Reason: wheezing) RF: 0 fluticasone propionate 50 mcg/actuation spray,suspension 2 spray intranasal DAILY RF: 0 loratadine 10 mg tablet 1 tab PO DAILY RF: 0 glipizide 5 mg tablet 1 tab PO BID RF: 0 Advair HFA 115-21 mcg/actuation HFA aerosol inhaler 2 puff inhalation BID RF: 0 Lantus Solostar U-100 Insulin 100 unit/mL (3 mL) insulin pen 62 unit subcut BID RF: 0 diclofenac sodium 1 % gel 1 ea topical TID RF: 0 Referrals: Physician,Unknown [Primary Care Provider] - 2 days
[2020-11-17 23:58] LABS: B Type Natriuretic Peptide < 10 pg/mL (<100)
[2020-11-18] VITALS: BP 88/48; BP 94/58; PULSE 84; PULSE 86; RESP 18; O2SAT 95
[2020-11-18] MEDS: 0.9 % Sodium Chloride 2,000 ML 999 ML IV (00:19)
[2020-11-18 00:45] VITALS: BP 110/60; PULSE 82
[2020-11-18 01:05] VITALS: BP 120/68; PULSE 82; RESP 18
[2020-11-18 01:35] VITALS: BP 133/72; PULSE 82; RESP 18
[2020-11-18 01:55] VITALS: BP 131/66; PULSE 82; RESP 18
[2020-11-18] MEDS: 0.9 % Sodium Chloride 1,000 ML 999 ML IV (03:30)
[2020-11-18 04:03] LABS: Appearance Urine CLEAR; Color Urine YELLOW; Glucose Urine UA NEG (NEG); Leukocyte Esterase Urine NEG (NEG); Nitrite Urine NEG (NEG); PH 5.5 (5.0-8.0); Specific Gravity - Urine <= 1.005 (1.005-1.025); Urine Blood NEG (NEG); Urine Ketones NEG (NEG); Urine Protein NEG (NEG-TRACE)
[2020-11-18 07:08] VITALS: BP 127/72; PULSE 88
[2020-11-18 07:28] LABS: Glucose, Whole Blood 95 mg/dL (60-115)
--- NOTE | 2020-11-18 09:36 | PC.NURSE ---
called mt. kearns to give report, was passed to a answering machine, left a message that pt was going back to the facility
== END 2020-11-18 09:39 | disposition other institution (70) ==
PROVIDERS: Emergency Provider Student in an Organized Health Care Education/Training Program
DX: R19.7 Diarrhea, unspecified (principal); E86.1 Hypovolemia; E86.0 Dehydration; R06.00 Dyspnea, unspecified; R42 Dizziness and giddiness; F12.90 Cannabis use, unspecified, uncomplicated; Z79.899 Other long term (current) drug therapy; Z86.16 Personal history of COVID-19; Z87.891 Personal history of nicotine dependence
CPT/HCPCS: 36415; 71045; 80053; 81003; 82947; 83605; 83880; 85025; 87040; 93005; 99285

== ENCOUNTER 2020-11-19 00:46 | Outpatient (REF) | payer OTHER, SELFPAY ==
[2020-11-19 07:46] LABS: Hematocrit 33.4 % (37-47); Hemoglobin 10.8 g/dl (12.0-16.0); Mean Corpuscular HGB Conc 32.3 g/dl (31.0-35.0); Mean Corpuscular Volume 89.8 fL (80-98); Mean Platelet Volume 9.2 fL (9.4-12.3); Platelet Count 195 X10*3/uL (160-400); Red Blood Count 3.72 X10*6/uL (4.20-5.50); Red Cell Distribution Width 13.1 % (11.0-16.0); White Blood Count 7.2 X10*3/uL (4.8-10.8)
[2020-11-19 08:28] LABS: Anion Gap 14 (12-20); Blood Urea Nitrogen 11 mg/dL (9-16); Carbon Dioxide 27 mmol/L (22-29); Chloride 104 mmol/L (96-108); Estimated Glomerular Filt Rate > 60; Glucose Random 91 mg/dL (60-115); Potassium 4.2 mmol/L (3.3-5.1); Sodium 141 mmol/L (135-145)
== END 2020-11-19 00:47 | disposition home or self-care (01) ==
LOC: HO.MMNH1L 00:46
PROVIDERS: Visit Provider Family Medicine
DX: I10 Essential (primary) hypertension (principal); E78.5 Hyperlipidemia, unspecified
CPT/HCPCS: 36415; 80048; 85027

== ENCOUNTER 2020-11-26 00:25 | Outpatient (REF) | payer OTHER, SELFPAY ==
[2020-11-26 06:59] LABS: Mean Corpuscular HGB Conc 35.7 g/dl (31.0-35.0); Mean Corpuscular Hemoglobin 29.6 pg (27.0-33.0); Mean Corpuscular Volume 82.8 fL (80-98); Mean Platelet Volume 9.3 fL (9.4-12.3); Platelet Count 111 X10*3/uL (160-400); Red Blood Count 3.38 X10*6/uL (4.20-5.50); White Blood Count 4.7 X10*3/uL (4.8-10.8)
[2020-11-26 07:23] LABS: Anion Gap 13 (12-20); Blood Urea Nitrogen 15 mg/dL (9-16); Calcium 8.4 mg/dL (8.4-10.2); Carbon Dioxide 28 mmol/L (22-29); Chloride 91 mmol/L (96-108); Estimated Glomerular Filt Rate > 60; Glucose Random 113 mg/dL (60-115); Potassium 4.4 mmol/L (3.3-5.1); Sodium 128 mmol/L (135-145)
== END 2020-11-26 00:26 | disposition home or self-care (01) ==
LOC: HO.MMNH1L 00:25
PROVIDERS: Visit Provider Family Medicine
DX: I10 Essential (primary) hypertension (principal); E78.5 Hyperlipidemia, unspecified
CPT/HCPCS: 36415; 80048; 85027

== ENCOUNTER 2020-12-03 07:02 | Outpatient (REF) | payer OTHER, SELFPAY | END 2020-12-03 07:03 | disposition home or self-care (01) | LOC: HO.MMNH1L 07:02 | PROVIDERS: Visit Provider Family Medicine | DX: Z13.89 Encounter for screening for other disorder (principal) ==

== ENCOUNTER → 2021-03-26 13:41 | Outpatient (BNVA) | payer OTHER, SELFPAY | PROVIDERS: PCP Internal Medicine; Visit Provider Internal Medicine Pulmonary Disease | DX: J45.909 Unspecified asthma, uncomplicated (principal); E66.9 Obesity, unspecified; E11.9 Type 2 diabetes mellitus without complications; E78.00 Pure hypercholesterolemia, unspecified; I10 Essential (primary) hypertension; R00.0 Tachycardia, unspecified; R60.0 Localized edema; R06.00 Dyspnea, unspecified; B94.8 Sequelae of other specified infectious and parasitic diseases; Z87.891 Personal history of nicotine dependence; Z59.01 Sheltered homelessness; Z88.5 Allergy status to narcotic agent; Z91.09 Other allergy status, other than to drugs and biological substances; Z99.81 Dependence on supplemental oxygen | CPT/HCPCS: 99212 ==

== ENCOUNTER → 2021-05-06 13:57 | Outpatient (REF) | payer OTHER, SELFPAY ==
--- NOTE | 2021-05-06 14:02 | CA_ITS ---
Transthoracic Echocardiogram Patient (Last, First, Middle): Ciera Haas, Gender: Female Date of : 1970 Age: 51 Procedure Date: 05/06/2021 Procedure Type: Transthoracic Echocardiogram Location: OP Height: 162.56 cm Weight: 121.56 kg BSA: 2.22 m2 Heart Rate: bpm BP: 120 / 78 mmHg Product Steward: ANGELITA Marti MD: Elías Luo MD Thin Film Technician: Reji Darby MD Symptoms: R06.00 - Dyspnea, unspecified Study Quality: Fair/Contrast ECG Rhythm: Sinus Conclusions: - 1. Normal LV systolic function with mild LVH with impaired relaxation filling pattern 2. Normal cardiac valvular Doppler 3. Normal RV systolic pressure with mildly elevated right atrial pressures 4. Trivial pericardial effusion Findings Procedure Information Contrast agent, definity, is being given per protocol without apparent complications. Left Ventricle Normal left ventricular size and systolic function. There is mildly increased left ventricular wall thickness. The visually estimated ejection fraction is between 60-65%. Spectral Doppler is indicative of an impaired relaxation filling pattern. E/E prime ratio is between 8 and 15 consistent with indeterminate filling pressures. Right Ventricle Normal right ventricular cavity size and systolic function. Atria The left atrium is normal in size. Interatrial shunt cannot be excluded. The right atrium is normal in size. Aortic Valve There is mild calcification of the aortic valve. There is no aortic valve stenosis. There is no aortic valve regurgitation. Mitral Valve There is mild anterior and moderate posterior mitral leaflet thickening. There is moderate mitral annular calcification. There is trace mitral valve regurgitation. There is no mitral valve stenosis. Pulmonic Valve The pulmonic valve was not well visualized. Tricuspid Valve Likely normal tricuspid valve structure and function. There is mild tricuspid valve regurgitation. The right ventricular systolic pressure is normal. Mildly elevated right atrial pressure. Great Vessels All visible segments of the aorta are normal in size. The pulmonary artery was not well visualized. Venous The inferior vena cava is mildly dilated and collapses less than 50% with inspiration. Pericardium/Pleural There is a trivial circumferential pericardial effusion. Prior Study Comparison No significant change compared to prior study dated: 08/26/2018. Measurements 2D Linear Measurements IVSd: 1.21 0.6-0.9/0.6-1.0 cm LVIDd: 4.76 3.9-5.3/4.2-5.9 cm LVIDd Index: 2.14 2.4-3.2/2.2-3.1 cm/m2 LVIDs: 3.25 2.0-3.6 cm LVPWd: 1.24 0.7-1.1 cm Ao Root: 3.20 2.1-3.5 cm LA Diam: 2.20 2.7-3.8/3.0-4.0 cm LAIDs Index: 0.99 1.5-2.3 cm/m2 LV Mass: 277.63 67-162/88-224 g LV Mass Index: 125.06 43-95/49-115 g/m2 LVOT Diam: 2.20 3.0+(-)1.3 cm 2D Systolic Function EF 4C: 58.30 >55% EF 2C: 71.60 >55% EF BiP: 65.60 >55% Mitral Valve MV Pk E: 0.81 MV PK A: 0.79 MV Decel Time: 222.00 E/A: 1.00 E'Lateral: 8.05 E'Medial: 6.20 E/E' Med: 13.10 E/E' Lat: 10.10 PHT: 65.00 MVA PHT: 3.38 Decel Gillespie: 3.67 Aortic Valve AoV Pk Ronny: 1.57 AoV Mn Ronny: 1.19 AoV VTI: 0.33 AoV Pk Grad: 10.00 Aov Mn Grad: 6.00 MARYLOU Cont.VTI: 2.34 LVOT LVOT Pk Ronny: 0.98 LVOT Mn Ronny: 0.73 LVOT VTI: 0.20 LVOT Pk Grad: 4.00 LVOT Mn Grad: 2.00 LVOT Diam: 2.20 LVOT Area: 3.80 Diastolic Function MV Pk E: 0.81 MV Pk A: 0.79 E/A: 1.00 E'Medial: 6.20 E/E' Med: 13.10 E' Laterial: 8.05 E/E' Lat: 10.10 Right Ventricle TAPSE (mm): 2.09 TVS' Ronny: 11.40 Tricuspid Valve TR Pk Ronny: 2.54 TR Pk Grad: 26.00 RA Press: 8.00 RVSP: 34.00 Great Vessels Aorta Ao Root-2D: 3.20 2.0-3.7 cm Ao Asc: 3.60 2.1-3.4 cm Ao Arch: 3.10 Updated in Other Vendor System with Status of Final Reji Darby MD electronically signed on 05/06/2021 5:19:51 PM with status of Final
== END ==
LOC: HO.CARD 13:57
PROVIDERS: PCP Internal Medicine; Visit Provider Internal Medicine Pulmonary Disease
DX: R06.00 Dyspnea, unspecified (principal)
CPT/HCPCS: 93306; Q9957

== ENCOUNTER → 2021-05-13 13:23 | Outpatient (BNVA) | payer OTHER, SELFPAY | PROVIDERS: PCP Internal Medicine; Visit Provider Internal Medicine Pulmonary Disease | DX: J96.01 Acute respiratory failure with hypoxia (principal); B94.8 Sequelae of other specified infectious and parasitic diseases; Z99.81 Dependence on supplemental oxygen | CPT/HCPCS: 99212 ==

== ENCOUNTER → 2021-06-18 13:18 | Outpatient (BNVA) | payer OTHER, SELFPAY | PROVIDERS: PCP Internal Medicine; Visit Provider Internal Medicine Pulmonary Disease | DX: J45.41 Moderate persistent asthma with (acute) exacerbation (principal); R06.00 Dyspnea, unspecified; Z99.81 Dependence on supplemental oxygen | CPT/HCPCS: 99212 ==

== ENCOUNTER → 2021-08-15 12:54 | Outpatient (BNVA) | payer OTHER, SELFPAY | PROVIDERS: PCP Internal Medicine; Visit Provider Internal Medicine | DX: R07.2 Precordial pain (principal); R00.0 Tachycardia, unspecified; R06.02 Shortness of breath; I50.32 Chronic diastolic (congestive) heart failure; I10 Essential (primary) hypertension; E11.9 Type 2 diabetes mellitus without complications; J44.9 Chronic obstructive pulmonary disease, unspecified; E78.00 Pure hypercholesterolemia, unspecified; F17.210 Nicotine dependence, cigarettes, uncomplicated; Z88.6 Allergy status to analgesic agent; Z88.8 Allergy status to other drugs, medicaments and biological substances; Z88.9 Allergy status to unspecified drugs, medicaments and biological substances; Z79.82 Long term (current) use of aspirin; Z79.84 Long term (current) use of oral hypoglycemic drugs; Z79.899 Other long term (current) drug therapy; Z59.01 Sheltered homelessness | CPT/HCPCS: 93005; 99202 ==

== ENCOUNTER → 2021-09-26 09:50 | Outpatient (REF) | payer OTHER, SELFPAY ==
--- NOTE | ~2021-09-26 | NM_ITS ---
Myocardial perfusion study Indication: Precordial chest pain Technique: The patient was brought in for a Lexiscan perfusion study on 09/26/2021. Patient performed low-level exercise and was injected 0.4 mg of Lexiscan intravenously. Within a minute of injection, 40 mCi of sestamibi was given intravenously. Images were obtained using the SPECT gamma camera interlaced with the gating device. Images were obtained in supine position. Resting perfusion study was performed on 09/27/2021. Patient was administered 40 mCi of sestamibi intravenously at rest. Images were then obtained in supine position. Images obtained with and without CT attenuation. Total DLP 147 mGy-cm. Images were processed with the software and compared side to side in short axis, horizontal long axis and vertical long axis views. Findings: The stress perfusion study showed non attenuated images show diffusely reduced uptake in the basal and mid anterior and mildly reduced uptake in the distal anterior wall of the LV myocardium. Attenuation corrected images show thinning of the distal anterior and mildly reduced uptake in the apex of the LV myocardium.. The gated study shows normal LV systolic function with visually estimated LVEF of greater than 60 %. LV cavity is normal size. The gated study shows normal systolic wall thickening and contraction of segments. Resting study shows improved uptake in the distal anterior and apical wall of the LV myocardium on both sets of images. Gating at rest reveals normal systolic wall motion with ejection fraction at 62%. The findings are consistent with equivocal for distal anterior and apical ischemia mild intensity. Shifting breast attenuation artifact cannot be entirely ruled out on this study. NM/NM cardiolite stress test Impression: 1. Myocardial perfusion imaging study shows equivocal for distal anterior and apical ischemia 2. Gated LVEF is 62% 3. Transient ischemic dilatation not present EKG is nondiagnostic for ischemia
--- NOTE | 2021-09-26 09:54 | CA_ITS ---
Acquisition Time: 2021-09-26 10:30:56 Total Exercise Time: 00:02:00 Test Indications: Abnormal ECG Medications: SEE H Protocol: LEXISCAN Max HR: 111 BPM 66% of Pred: 167 BPM Max BP: 106/062 mmHG Max Work Load: 1.0 METS Pharmacological stress test with Lexiscan injection, while sitting and kicking her right leg, without anginal symptoms, without arrythmia, with normotensive response to injection, with nondiagnostic EKG for ischemia. In recovery she reported nausea that was treated with caffinated cola and Amnophylline 75mg IVP to reverse lexiscan with resolution of symptom. Nuclear images pending. Test reviewd with Dr Torres. Referred By: Elio Thakkar Overread By: JOHAN MONSALVE
== END ==
LOC: HO.CARD 09:50
PROVIDERS: PCP Internal Medicine; Visit Provider Internal Medicine
DX: R07.2 Precordial pain (principal)
CPT/HCPCS: 78452; 93017; A9500; J0280; J2785

== ENCOUNTER 2021-10-10 10:56 | Outpatient (REF) | payer OTHER, SELFPAY ==
[2021-10-10 11:40] LABS: Hematocrit 37.1 % (37.0-47.0); Hemoglobin 11.8 g/dl (12.0-16.0); Mean Corpuscular HGB Conc 31.8 g/dl (31.0-35.0); Mean Corpuscular Hemoglobin 27.3 pg (27.0-33.0); Mean Corpuscular Volume 85.9 fL (80.0-98.0); Platelet Count 224 X10*3/uL (160-400); Red Blood Count 4.32 X10*6/uL (4.20-5.50); Red Cell Distribution Width 14.2 % (11.0-16.0); White Blood Count 10.9 X10*3/uL (4.8-10.8)
[2021-10-10 11:47] LABS: Prothrombin Time 10.9 SEC (9.9-13.0)
[2021-10-10 12:25] LABS: Anion Gap 13 (12-20); Blood Urea Nitrogen 28 mg/dL (9-16); Calcium 9.7 mg/dL (8.4-10.2); Carbon Dioxide 26 mmol/L (22-29); Chloride 104 mmol/L (96-108); Estimated Glomerular Filt Rate > 60; Glucose Random 104 mg/dL (60-115); Potassium 4.4 mmol/L (3.3-5.1); Sodium 139 mmol/L (135-145)
== END 2021-10-10 10:57 | disposition home or self-care (01) ==
LOC: HO.LAB 10:56
PROVIDERS: PCP Internal Medicine; Visit Provider Internal Medicine
DX: R07.2 Precordial pain (principal)
CPT/HCPCS: 36415; 80048; 85027; 85610

== ENCOUNTER → 2021-10-22 13:35 | Outpatient (BNVA) | payer OTHER, SELFPAY | PROVIDERS: PCP Internal Medicine; Referring Provider Internal Medicine; Visit Provider Nurse Practitioner Family | DX: Z01.810 Encounter for preprocedural cardiovascular examination (principal); R07.2 Precordial pain; I25.10 Atherosclerotic heart disease of native coronary artery without angina pectoris; I50.32 Chronic diastolic (congestive) heart failure; Z95.5 Presence of coronary angioplasty implant and graft; Z98.890 Other specified postprocedural states | CPT/HCPCS: 99212 ==

== ENCOUNTER 2021-11-01 09:56 | Outpatient (REF) | payer OTHER, SELFPAY ==
[2021-11-01 10:38] LABS: MANUAL DIFF FLAG NO
[2021-11-01 10:57] LABS: Basophils Percent Auto 0.3 % (0-2); Eosinophils Absolute Auto 0.3 X10*3/uL (0.0-0.4); Eosinophils Percent Auto 2.6 % (0-4); Hematocrit 36.1 % (37.0-47.0); Hemoglobin 11.4 g/dl (12.0-16.0); Imm Gran Abs Auto 0.04 X10*3/uL (0.00-0.03); Imm Gran Pct Auto 0.4 % (0.0-0.4); Lymphocytes Absolute Auto 1.7 X10*3/uL (1.2-4.9); Lymphocytes Percent Auto 16.8 % (20-40); Mean Corpuscular HGB Conc 31.6 g/dl (31.0-35.0); Mean Corpuscular Hemoglobin 27.3 pg (27.0-33.0); Mean Corpuscular Volume 86.4 fL (80.0-98.0); Mean Platelet Volume 8.6 fL (9.4-12.3); Monocytes Absolute Auto 0.4 X10*3/uL (0.1-1.2); Monocytes Percent Auto 3.9 % (2-11); Neutrophils Absolute Auto 7.5 x10*3/uL (2.0-8.3); Platelet Count 220 X10*3/uL (160-400); Red Blood Count 4.18 X10*6/uL (4.20-5.50); Red Cell Distribution Width 14.6 % (11.0-16.0); White Blood Count 9.9 X10*3/uL (4.8-10.8)
== END 2021-11-01 09:57 | disposition home or self-care (01) ==
LOC: HO.LAB 09:56
PROVIDERS: PCP Internal Medicine; Visit Provider Internal Medicine Pulmonary Disease
DX: J45.41 Moderate persistent asthma with (acute) exacerbation (principal); R06.00 Dyspnea, unspecified
CPT/HCPCS: 36415; 82785; 85025; 86003; 99212

== ENCOUNTER → 2022-01-03 14:05 | Outpatient (BNVA) | payer OTHER, SELFPAY | PROVIDERS: PCP Internal Medicine; Visit Provider Internal Medicine Pulmonary Disease | DX: J45.41 Moderate persistent asthma with (acute) exacerbation (principal); R06.00 Dyspnea, unspecified; Z79.899 Other long term (current) drug therapy | CPT/HCPCS: 99212 ==

== ENCOUNTER → 2022-04-08 09:46 | Outpatient (BNVA) | payer OTHER, SELFPAY | PROVIDERS: PCP Internal Medicine; Visit Provider Internal Medicine Pulmonary Disease | DX: J45.41 Moderate persistent asthma with (acute) exacerbation (principal); R06.00 Dyspnea, unspecified | CPT/HCPCS: 99212 ==

== ENCOUNTER 2022-04-14 06:13 | Day surgery (SDC) | payer OTHER, SELFPAY ==
[2022-04-08 15:24] VITALS: BMI 41.1
--- NOTE | 2022-04-11 13:02 | MHC.SHP ---
Pre-Procedural Eval Section A Date of Service: 04/11/22 The patient is an INPATIENT: No Changes since office visit: No Cold of Flu in the past 2 weeks, No New Medical Problems, No Changes in Medication and No Patient answered all questions The History & Physical has been completed within 30 days and I have reviewed it.: Yes Section B Chief Complaint: Age-related nuclear cataract, right eye Allergies: Allergies Allergy/AdvReac Type Severity Reaction Status Date / Time adhesive tape [ADHESIVE TAPE] Allergy Intermediate BLISTERS Verified 04/08/22 09:51 tramadol [TRAMADOL] Allergy Intermediate NAUSEA & Verified 04/08/22 15:14 VOMITING oxycodone [OXYCODONE] AdvReac Intermediate ITCHING Verified 04/08/22 15:14 Plan Diagnosis/Plan: Unchanged I have reviewed the history and physical and performed a pertinent physical examination on my patient. No changes have occurred unless specified.
[2022-04-14 06:35] LABS: Glucose, Whole Blood 85 mg/dL (60-115)
[2022-04-14] MEDS: Tetracaine HCl/PF 0.5% Oph Sol 4 ML DROPS 1 DROP EYE-RIGHT (06:37)
[2022-04-14] MEDS: Cyclopentolate 1 % Ophth Sol 2 ML DRPBTL 1 DROP EYE-RIGHT ×3 (06:37→06:51)
[2022-04-14] MEDS: Tropicamide 1 % Ophth Sol 3 ML BTL 1 DROP EYE-RIGHT ×2 (06:37→06:43)
[2022-04-14] MEDS: Ketorolac Tromethamine 0.5% Op 5 ML DROPS 1 DROP EYE-RIGHT ×3 (06:38→06:51)
[2022-04-14] MEDS: Phenylephrine HCL 2.5% Oph SoL 2 ML BOTTLE 1 DROP EYE-RIGHT ×3 (06:38→06:51)
--- NOTE | 2022-04-14 06:48 | PC.NURSE ---
Nicole Polanco RN spoke to Dr. Vogt this morning to update him that patient received injection in surgical eye recently for diabetic retinopathy care and red area not to sclera next to pupil. Okay to proceed per doctor.
[2022-04-14 06:50] VITALS: BP 97/64; PULSE 100; RESP 18; TEMP 36.6; O2SAT 98
--- NOTE | 2022-04-14 07:13 | P.CONAN_ITS ---
[facility] Active Problems Active Problems: All Active Problems (Updated 04/09/22 @ 14:14 by Kirstin Carrillo, RN) Nasal congestion (Acute) Hidradenitis (Acute) Acute respiratory failure with hypoxia (Acute) Asthma with exacerbation (Acute) Pulmonary infiltrate (Acute) Post-acute sequelae of COVID-19 (PASC) (Acute) Non-cardiac chest pain (Acute) MDD (major depressive disorder), recurrent episode, moderate (Acute) Dyspnea on exertion (Acute) Precordial chest pain (Acute) SOB (shortness of breath) (Acute) Chronic heart failure with preserved ejection fraction (HFpEF) (Acute) Type 2 diabetes mellitus with unspecified complications (Acute) Status post cardiac catheterization (Acute) Stented coronary artery (Acute) Coronary artery disease (Acute) Asthma (Acute) Past Medical History Medical History Asthma Cataract of both eyes delivery delivered Cholecystectomy planned COVID-19 Depression Diabetes Diabetic Charcot's foot Hernia of abdominal wall High cholesterol HTN (hypertension) Supplemental oxygen dependent Tachycardia Family History Family History Father No problems noted. Mother No problems noted. Sister H/O heart artery stent Family history of problems with anesthesia: No Surgical History Surgical History H/O foot surgery History of esophagogastroduodenoscopy (EGD) History of excision of pilonidal cyst Hx of cardiac catheterization Hx of section Hx of cholecystectomy Hx of colonoscopy Hx of oophorectomy Hx of umbilical hernia repair History of Problems with Anesthesia: No Social History Social History (Updated 04/08/22 @ 15:24 by Kirstin Carrillo, RN) Household Members: Other Household Members Other:: sister Housing: House Are you a primary restorative care technician to a significant other at home: No Do you presently have visiting nurse or other home services: Yes ([employer]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 If so, by whom?: No Are you DNR?: No Advance Directives: No Advance Directives Information Provided: Yes Advance Directives on File: No Recently lost weight without trying: No Nutrition Risks: No Nutritional Risk service: No Current occupational status: disabled Meds Allergies Allergy/AdvReac Type Severity Reaction Status Date / Time adhesive tape [ADHESIVE TAPE] Allergy Intermediate BLISTERS Verified 04/14/22 06:47 tramadol [TRAMADOL] Allergy Intermediate NAUSEA & Verified 04/14/22 06:47 VOMITING oxycodone [OXYCODONE] AdvReac Intermediate ITCHING Verified 04/14/22 06:47 Active Medications: Current Medications Lactated Ringer's (Lr) 500 mls @ 20 mls/hr IVCONT .Q24H BRIDGER Povidone Iodine (Povidone Iodine 5 % Ophth Soln 30 Ml Bottle) 1 appl EYE-RIGHT PREOP PRN PRN Reason: Pre-Op Surgical Implant Prophy Povidone Iodine (Povidone Iodine 5 % Ophth Soln 30 Ml Bottle) 1 appl EYE-RIGHT PREOP PRN PRN Reason: Pre-Op Surgical Implant Prophy Home Medications Medication Instructions Recorded Confirmed Last Taken Type blood sugar diagnostic (FreeStyle 11/17/20 10/22/21 Unknown History Lite Strips) fluticasone propionate 50 2 spray intranasal DAILY 11/17/20 04/08/22 Unknown History mcg/actuation nasal spray,suspension insulin glargine 100 unit/mL (3 55 unit subcut BEDTIME 11/17/20 04/08/22 Unknown History mL) subcutaneous pen (Lantus Solostar U-100 Insulin) loratadine 10 mg tablet 1 tab PO DAILY 11/17/20 04/08/22 04/14/22 History metformin 1,000 mg tablet 1 tab PO BID 11/17/20 04/08/22 Unknown History ascorbic acid (vitamin C) 500 mg 500 mg PO DAILY 08/15/21 04/08/22 04/14/22 History capsule bupropion HCl 150 mg 24 hr tablet, 150 mg PO BID 08/15/21 04/08/22 Unknown History extended release duloxetine 30 mg capsule,delayed 30 mg PO BID 08/15/21 04/08/22 Unknown History release gabapentin 300 mg capsule 300 mg PO BID 08/15/21 04/08/22 04/14/22 History buspirone 10 mg tablet 10 mg PO BID 10/22/21 04/08/22 Unknown History omeprazole 20 mg capsule,delayed 20 mg PO BID 10/22/21 04/08/22 Unknown History release aripiprazole 10 mg tablet 1 tab PO DAILY 04/08/22 04/08/22 Unknown History dulaglutide 3 mg/0.5 mL 3 mg subcut QWEEK 04/08/22 04/08/22 Unknown History subcutaneous pen injector (Trulicity) Exam Exam Date and Time: April 14, 2022 0713 Height,Weight and Vital Signs: Height 5 ft 4 in Weight 108.862 kg Last Vital Signs Temp 97.9 F 04/14/22 06:50 Pulse 100 04/14/22 06:50 Resp 18 04/14/22 06:50 BP 97/64 04/14/22 06:50 Pulse Ox 98 04/14/22 06:50 O2 Del Method 04/14/22 06:50 Pertinent Lab Results Pertinent Lab Results: Laboratory Tests 04/14/22 06:30 POC Glucose 85 Airway Mallampati Class: II TM Dist: >3cm Neck ROM: Full Heart: rrr Lungs: cta Assessment and Plan Assessment Anesthesia Assessment: Anesthesia Plan Discussed and Chart Reviewed Final Anesthetic Review Family History of Problems with Anesthesia: No History of Problems with Anesthesia: No NPO: Yes ASA Class: III Final Preanesthetic Review: No Changes in Pt Med Stat, Meds/Allgs Chart Reviewed and Consent Obtained/Reviewed Patient Risk: Intermediate Procedure Risk: Intermediate Anesthetic Plan Anesthetic Plan: MAC: Disposition: Standard PACU
[2022-04-14] MEDS: Lactated Ringers 500 ML 50 ML IV (07:36)
[2022-04-14 08:03] VITALS: BP 114/56; PULSE 95; RESP 18; TEMP 36.1; O2SAT 97
== END 2022-04-14 08:40 | disposition home or self-care (01) ==
LOC: HO.SSS 06:13
PROVIDERS: PCP Internal Medicine; Visit Provider Ophthalmology
PROC: (CPT 66985; principal; 2022-04-14 08:00)
DX: H25.11 Age-related nuclear cataract, right eye (principal); H54.7 Unspecified visual loss; Z83.511 Family history of glaucoma; I11.0 Hypertensive heart disease with heart failure; I50.9 Heart failure, unspecified; I25.10 Atherosclerotic heart disease of native coronary artery without angina pectoris; J45.909 Unspecified asthma, uncomplicated; E11.3591 Type 2 diabetes mellitus with proliferative diabetic retinopathy without macular edema, right eye; E11.3512 Type 2 diabetes mellitus with proliferative diabetic retinopathy with macular edema, left eye; E11.610 Type 2 diabetes mellitus with diabetic neuropathic arthropathy; E11.40 Type 2 diabetes mellitus with diabetic neuropathy, unspecified; Z79.4 Long term (current) use of insulin; Z79.51 Long term (current) use of inhaled steroids; Z79.01 Long term (current) use of anticoagulants; Z79.899 Other long term (current) drug therapy; Z86.16 Personal history of COVID-19; Z87.891 Personal history of nicotine dependence
CPT/HCPCS: 66984; 82947; J2250; J3010; J3300; V2632

== ENCOUNTER 2022-04-28 07:44 | Day surgery (SDC) | payer OTHER, SELFPAY ==
[2022-04-08 15:27] VITALS: BMI 41.1
--- NOTE | 2022-04-24 13:05 | P.CONAN_ITS ---
Documented by User: Carlota Lamb NP 04/24/22 13:07 HPI - Anesthesia Eval Consult details Narrative: 52yo F for Left Cataract Extraction IOL Insertion PCP cleared Right eye 04/14/22 with MAC: Midaz 2 PMFSH Active Problems Active Problems: All Active Problems (Updated 04/09/22 @ 14:14 by Kirstin Carrillo, DEJA) Nasal congestion (Acute) Hidradenitis (Acute) Acute respiratory failure with hypoxia (Acute) Asthma with exacerbation (Acute) Pulmonary infiltrate (Acute) Post-acute sequelae of COVID-19 (PASC) (Acute) Non-cardiac chest pain (Acute) MDD (major depressive disorder), recurrent episode, moderate (Acute) Dyspnea on exertion (Acute) Precordial chest pain (Acute) SOB (shortness of breath) (Acute) Chronic heart failure with preserved ejection fraction (HFpEF) (Acute) Type 2 diabetes mellitus with unspecified complications (Acute) Status post cardiac catheterization (Acute) Stented coronary artery (Acute) Coronary artery disease (Acute) Asthma (Acute) Past Medical History Medical History Asthma Cataract of both eyes delivery delivered Cholecystectomy planned COVID-19 Depression Diabetes Diabetic Charcot's foot Hernia of abdominal wall High cholesterol Supplemental oxygen dependent Tachycardia Family History Family History Father No problems noted. Mother No problems noted. Sister H/O heart artery stent Family history of problems with anesthesia: No Surgical History Surgical History H/O foot surgery History of esophagogastroduodenoscopy (EGD) History of excision of pilonidal cyst Hx of cardiac catheterization Hx of section Hx of cholecystectomy Hx of colonoscopy Hx of oophorectomy Hx of umbilical hernia repair History of Problems with Anesthesia: No Social History Social History Household Members: Other Household Members Other:: sister Housing: House Are you a primary health care sanitary technician to a significant other at home: No Do you presently have visiting nurse or other home services: Yes ([employer] 16 hours/week) Alcohol intake: never Patient Tobacco Use Status: Former Tobacco user Quit Date: 2013 Tobacco use type: Cigarette Second Hand Smoke Exposure: No Use of substances other than those prescribed or required for medical reasons: No Substance Use Type: Marijuana Have you been hit, kicked, punched, or otherwise hurt by someone within the past year? If so, by whom?: No Are you DNR?: No Advance Directives: No Advance Directives Information Provided: Yes Advance Directives on File: No Recently lost weight without trying: No Patient : No service: No Current occupational status: disabled Meds Allergies Allergy/AdvReac Type Severity Reaction Status Date / Time adhesive tape [ADHESIVE TAPE] Allergy Intermediate BLISTERS Verified 04/14/22 06:47 tramadol [TRAMADOL] Allergy Intermediate NAUSEA & Verified 04/14/22 06:47 VOMITING oxycodone [OXYCODONE] AdvReac Intermediate ITCHING Verified 04/14/22 06:47 Home Medications Medication Instructions Recorded Confirmed Last Taken Type blood sugar diagnostic (FreeStyle 11/17/20 10/22/21 Unknown History Lite Strips) fluticasone propionate 50 2 spray intranasal DAILY 11/17/20 04/08/22 Unknown History mcg/actuation nasal spray,suspension insulin glargine 100 unit/mL (3 55 unit subcut BEDTIME 11/17/20 04/08/22 Unknown History mL) subcutaneous pen (Lantus Solostar U-100 Insulin) loratadine 10 mg tablet 1 tab PO DAILY 11/17/20 04/08/22 04/14/22 History metformin 1,000 mg tablet 1 tab PO BID 11/17/20 04/08/22 Unknown History ascorbic acid (vitamin C) 500 mg 500 mg PO DAILY 08/15/21 04/08/22 04/14/22 History capsule bupropion HCl 150 mg 24 hr tablet, 150 mg PO BID 08/15/21 04/08/22 Unknown History extended release duloxetine 30 mg capsule,delayed 30 mg PO BID 08/15/21 04/08/22 Unknown History release gabapentin 300 mg capsule 300 mg PO BID 08/15/21 04/08/22 04/14/22 History buspirone 10 mg tablet 10 mg PO BID 10/22/21 04/08/22 Unknown History omeprazole 20 mg capsule,delayed 20 mg PO BID 10/22/21 04/08/22 Unknown History release aripiprazole 10 mg tablet 1 tab PO DAILY 04/08/22 04/08/22 Unknown History dulaglutide 3 mg/0.5 mL 3 mg subcut QWEEK 04/08/22 04/08/22 Unknown History subcutaneous pen injector (Trulicity) Exam Exam Date and Time: April 24, 2022 1305 Height,Weight and Vital Signs: Height 5 ft 4 in Weight 108.862 kg Assessment and Plan Assessment Anesthesia Assessment: Chart Reviewed Final Anesthetic Review Family History of Problems with Anesthesia: No History of Problems with Anesthesia: No Documented by User: Daniel Houser MD 04/28/22 08:39 PMFSH Past Medical History Medical History Asthma Cataract of both eyes delivery delivered Cholecystectomy planned COVID-19 Depression Diabetes Diabetic Charcot's foot Hernia of abdominal wall High cholesterol Supplemental oxygen dependent Tachycardia Family History Family History Father No problems noted. Mother No problems noted. Sister H/O heart artery stent Surgical History Surgical History H/O foot surgery History of esophagogastroduodenoscopy (EGD) History of excision of pilonidal cyst Hx of cardiac catheterization Hx of section Hx of cholecystectomy Hx of colonoscopy Hx of oophorectomy Hx of umbilical hernia repair Social History Social History Household Members: Other Household Members Other:: sister Housing: House Are you a primary health care sanitary technician to a significant other at home: No Do you presently have visiting nurse or other home services: Yes ([employer] 16 hours/week) Alcohol intake: never Patient Tobacco Use Status: Former Tobacco user Quit Date: 2013 Tobacco use type: Cigarette Second Hand Smoke Exposure: No Use of substances other than those prescribed or required for medical reasons: No Substance Use Type: Marijuana Have you been hit, kicked, punched, or otherwise hurt by someone within the past year? If so, by whom?: No Are you DNR?: No Advance Directives: No Advance Directives Information Provided: Yes Advance Directives on File: No Recently lost weight without trying: No Patient : No service: No Current occupational status: disabled Meds Allergies Allergy/AdvReac Type Severity Reaction Status Date / Time adhesive tape [ADHESIVE TAPE] Allergy Intermediate BLISTERS Verified 04/14/22 06:47 tramadol [TRAMADOL] Allergy Intermediate NAUSEA & Verified 04/14/22 06:47 VOMITING oxycodone [OXYCODONE] AdvReac Intermediate ITCHING Verified 04/14/22 06:47 Home Medications Medication Instructions Recorded Confirmed Last Taken Type blood sugar diagnostic (FreeStyle 11/17/20 10/22/21 Unknown History Lite Strips) fluticasone propionate 50 2 spray intranasal DAILY 11/17/20 04/08/22 Unknown History mcg/actuation nasal spray,suspension insulin glargine 100 unit/mL (3 55 unit subcut BEDTIME 11/17/20 04/08/22 Unknown History mL) subcutaneous pen (Lantus Solostar U-100 Insulin) loratadine 10 mg tablet 1 tab PO DAILY 11/17/20 04/08/22 04/14/22 History metformin 1,000 mg tablet 1 tab PO BID 11/17/20 04/08/22 Unknown History ascorbic acid (vitamin C) 500 mg 500 mg PO DAILY 08/15/21 04/08/22 04/14/22 History capsule bupropion HCl 150 mg 24 hr tablet, 150 mg PO BID 08/15/21 04/08/22 Unknown History extended release duloxetine 30 mg capsule,delayed 30 mg PO BID 08/15/21 04/08/22 Unknown History release gabapentin 300 mg capsule 300 mg PO BID 08/15/21 04/08/22 04/14/22 History buspirone 10 mg tablet 10 mg PO BID 10/22/21 04/08/22 Unknown History omeprazole 20 mg capsule,delayed 20 mg PO BID 10/22/21 04/08/22 Unknown History release aripiprazole 10 mg tablet 1 tab PO DAILY 04/08/22 04/08/22 Unknown History dulaglutide 3 mg/0.5 mL 3 mg subcut QWEEK 04/08/22 04/08/22 Unknown History subcutaneous pen injector (Trulicity) Exam Airway Mallampati Class: II TM Dist: >3cm Neck ROM: Full Denture: Upper and Lower Loose/Missing/Broken Teeth: Yes Heart: [id number] Lungs: cta b/l Assessment and Plan Assessment Anesthesia Assessment: Anesthesia Plan Discussed Final Anesthetic Review NPO: Yes ASA Class: III Final Preanesthetic Review: No Changes in Pt Med Stat, Meds/Allgs Chart Reviewed, Consent Obtained/Reviewed and Anes Risks/Benef Reviewed Patient Risk: Intermediate Procedure Risk: Intermediate Assessment/Block/Sedation in SS: Assess/Block/Sedation-SS Anesthetic Plan Anesthetic Plan: MAC: and Agree w/ Assess. and Plan Disposition: Standard PACU
--- NOTE | 2022-04-25 12:35 | MHC.SHP ---
Pre-Procedural Eval Section A Date of Service: 04/25/22 The patient is an INPATIENT: No Changes since office visit: No Cold of Flu in the past 2 weeks, No New Medical Problems, No Changes in Medication and No Patient answered all questions The History & Physical has been completed within 30 days and I have reviewed it.: Yes Section B Chief Complaint: Age-related nuclear cataract, left eye Allergies: Allergies Allergy/AdvReac Type Severity Reaction Status Date / Time adhesive tape [ADHESIVE TAPE] Allergy Intermediate BLISTERS Verified 04/14/22 06:47 tramadol [TRAMADOL] Allergy Intermediate NAUSEA & Verified 04/14/22 06:47 VOMITING oxycodone [OXYCODONE] AdvReac Intermediate ITCHING Verified 04/14/22 06:47 Plan Diagnosis/Plan: Unchanged I have reviewed the history and physical and performed a pertinent physical examination on my patient. No changes have occurred unless specified.
[2022-04-28 07:53] VITALS: PULSE 99; RESP 18; TEMP 36.4
[2022-04-28] MEDS: Tetracaine HCl/PF 0.5% Oph Sol 4 ML DROPS 1 DROP EYE-LEFT (08:17)
[2022-04-28] MEDS: Phenylephrine HCL 2.5% Oph SoL 2 ML BOTTLE 1 DROP EYE-LEFT ×3 (08:17→08:22)
[2022-04-28] MEDS: Cyclopentolate 1 % Ophth Sol 2 ML DRPBTL 1 DROP EYE-LEFT ×3 (08:17→08:22)
[2022-04-28] MEDS: Tropicamide 1 % Ophth Sol 3 ML BTL 1 DROP EYE-LEFT ×3 (08:18→08:22)
[2022-04-28] MEDS: Ketorolac Tromethamine 0.5% Op 5 ML DROPS 1 DROP EYE-LEFT ×3 (08:18→08:22)
[2022-04-28 08:19] LABS: Glucose, Whole Blood 127 mg/dL (60-115)
[2022-04-28] MEDS: Lactated Ringers 500 ML 50 ML IV (08:24)
--- NOTE | 2022-04-28 08:58 | HO.PNOPHT ---
Ophthalmology Procedure Procedure Date of Service: 04/28/22 Ophthalmology Viscoelastic: Healon Duet Dual Pack Pro Ophthalmology Lenses: TECNIS [id number] (19.5) Procedure Notes: PREOPERATIVE DIAGNOSIS: Decreased visual acuity left eye secondary to cataract POSTOPERATIVE DIAGNOSIS: Same PROCEDURE: Left cataract extraction with intraocular lens insertion SURGEON: Casimiro Vogt M.D. ANESTHESIA: Topical/MAC ESTIMATED BLOOD LOSS: None COMPLICATIONS: None After obtaining informed consent, the patient was brought to the operation room suite and placed in the supine position. After adequate sedation per anesthesia, topical drops of Tetracaine were given to the left eye. The eye was then prepped and draped in the usual sterile fashion. The operating room microscope was then positioned over the operative eye and a lid speculum placed. A paracentesis was created. Viscoelastic was then instilled into the anterior chamber. A three plane incision was then created temporally, utilizing a 2.85 mm keratome. Capsulotomy forceps were then utilized to create a circular tear capsulotomy. Hydrodissection and hydrodelineation were carried out until adequate mobilization of the nucleus occurred. Phacoemulsification was then utilized to remove the dense central nucleus followed by removal of the cortical material utilizing the automated aspiration irrigation unit. Viscoat elastic was instilled into the posterior capsular bag followed by placement of a posterior chamber intraocular lens without difficulty. The residual Viscoat elastic was then removed utilizing the automated IA machine. The wound was check and found to be watertight. The patient tolerated the procedure well and the lid speculum was removed. Intracameral injection of Vigamox 0.1 mL followed by a subtenon injection of Kenalog-40 0.2 mL were administered. The patient will be seen in the a.m.
[2022-04-28 09:02] VITALS: BP 115/71; PULSE 94; RESP 16; TEMP 36.5; O2SAT 95
== END 2022-04-28 09:14 | disposition home or self-care (01) ==
PROVIDERS: PCP Internal Medicine; Visit Provider Ophthalmology
PROC: (CPT 66985; principal; 2022-04-28 09:30)
DX: H25.12 Age-related nuclear cataract, left eye (principal); H54.7 Unspecified visual loss; Z83.511 Family history of glaucoma; I25.10 Atherosclerotic heart disease of native coronary artery without angina pectoris; I10 Essential (primary) hypertension; E78.5 Hyperlipidemia, unspecified; F41.8 Other specified anxiety disorders; J45.40 Moderate persistent asthma, uncomplicated; E11.3591 Type 2 diabetes mellitus with proliferative diabetic retinopathy without macular edema, right eye; E11.3512 Type 2 diabetes mellitus with proliferative diabetic retinopathy with macular edema, left eye; E11.610 Type 2 diabetes mellitus with diabetic neuropathic arthropathy; Z79.4 Long term (current) use of insulin; Z79.01 Long term (current) use of anticoagulants; Z79.51 Long term (current) use of inhaled steroids; Z79.899 Other long term (current) drug therapy; Z88.8 Allergy status to other drugs, medicaments and biological substances; Z86.16 Personal history of COVID-19; Z87.891 Personal history of nicotine dependence
CPT/HCPCS: 66984; 82947; J2250; J3010; J3300; V2632

== ENCOUNTER 2022-06-03 09:12 | Outpatient (REF) | payer OTHER, SELFPAY ==
[2022-06-03 13:26] LABS: Alanine Aminotransferase 28 U/L (0-31); Albumin Level 3.9 g/dL (3.5-5.0); Alkaline Phosphatase 137 U/L (39-117); Aspartate Amino Transferase 17 U/L (5-31); Bilirubin Direct 0.2 mg/dL (0.0-0.5); Bilirubin Total 0.5 mg/dL (0.0-1.0); Cholesterol 129 mg/dL; HDL Cholesterol 44 mg/dL; LDL Cholesterol Calculated 55 mg/dl; Total Protein 6.1 g/dL (6.5-8.0); Triglycerides 151 mg/dL
== END 2022-06-03 09:13 | disposition home or self-care (01) ==
LOC: HO.LAB 09:12
PROVIDERS: PCP Internal Medicine; Referring Provider Internal Medicine; Visit Provider Internal Medicine
DX: I25.10 Atherosclerotic heart disease of native coronary artery without angina pectoris (principal); E78.5 Hyperlipidemia, unspecified; E11.8 Type 2 diabetes mellitus with unspecified complications
CPT/HCPCS: 36415; 80061; 80076; 99212

== ENCOUNTER → 2022-11-12 10:42 | Outpatient (BNVA) | payer OTHER, SELFPAY | PROVIDERS: PCP Internal Medicine; Visit Provider Internal Medicine Pulmonary Disease | DX: J45.41 Moderate persistent asthma with (acute) exacerbation (principal); R06.00 Dyspnea, unspecified; Z79.899 Other long term (current) drug therapy | CPT/HCPCS: 99212 ==

== ENCOUNTER 2023-04-13 10:21 | Outpatient (REF) | payer OTHER, SELFPAY ==
[2023-04-13 11:44] VITALS: BMI 39.1
[2023-04-13 11:45] VITALS: BP 112/98; PULSE 112; RESP 18; TEMP 35.8; O2SAT 98
== END 2023-04-13 10:22 | disposition home or self-care (01) ==
LOC: HO.MS 10:21
PROVIDERS: PCP Internal Medicine; Visit Provider Ophthalmology
PROC: (CPT 66821; principal; 2023-04-13 12:10)
DX: H26.491 Other secondary cataract, right eye (principal)
CPT/HCPCS: 66821

== ENCOUNTER 2023-08-31 08:28 | Outpatient (AMB) | payer OTHER, SELFPAY ==
--- NOTE | 2023-08-31 08:33 | MHC.OFFVIS ---
Intake Vital Signs 08/31/23 08:35 Height 5 ft 3 in Weight 211 lb 3.245 oz BMI 37.4 BP 130/60 Blood Pressure Location Lt brachial Position Sitting Pulse 103 H Intake Visit Reasons: Dizziness/Nausea (Req per PCP) Intake Note: pt its its here pre pcp for dizziness/nausea pt states that she still feeli some dizziness, pt also states that she feel some palpitations. Allergies adhesive tape [ADHESIVE TAPE] Allergy (Intermediate, Verified 11/12/22 10:57) BLISTERS tramadol [TRAMADOL] Allergy (Intermediate, Verified 11/12/22 10:57) NAUSEA & VOMITING oxycodone [OXYCODONE] Adverse Reaction (Intermediate, Verified 11/12/22 10:57) ITCHING Medication List - Last Reconciled 08/31/23 by PAZ JacksonC Advair HFA 45-21 mcg/actuation (fluticasone propion-salmeterol) 2 puffs PO BID NS albuterol sulfate 90 mcg/actuation (Ventolin HFA) 1 puff inhalation Q6H PRN aripiprazole 10 mg PO DAILY aspirin 81 mg PO DAILY 90 days atorvastatin 40 mg PO BEDTIME blood pressure monitor As directed blood sugar diagnostic (FreeStyle Lite Strips) bupropion HCl 150 mg PO BID buspirone 10 mg PO BID dulaglutide (Trulicity) 3 mg subcut QWEEK duloxetine 30 mg PO BID fluticasone propionate 50 mcg/actuation 2 sprays intranasal DAILY gabapentin 300 mg PO BID insulin glargine (Lantus Solostar U-100 Insulin) 55 units subcut BEDTIME loratadine 10 mg PO DAILY melatonin 5 mg PO BEDTIME metformin 1,000 mg PO BID omeprazole 20 mg PO BID Spiriva Respimat 1.25 mcg/actuation (tiotropium bromide) 2 puffs inhalation QAM NS HPI Dizziness/Nausea (Req per PCP) HPI Details Carol is a 53-year-old female with past medical history of obesity, diabetes, hyperlipidemia, smoking, COPD, CAD with LAD and RCA stents who presents for follow-up. Her last prior visit to our office was 06/03/2022. Today she reports she has been experiencing issues with lightheadedness, nausea, feeling clammy when being in an upright position. She has not had any full presyncope, syncope. She tells me she has lost weight, approximately 80 lb. Our records seem to confirm about 30 lb in the last year and a half. She is not on any antihypertensive agents. She told me she had been on metoprolol in the past and had low blood pressures. She has not had any recent medication changes. She drinks water throughout the day. She is mostly sedentary but does ambulate short distances using her walker. She has had falls which are related to her weak ankles. She has braces on each ankle for support. No chest discomfort at rest or with activity. No concerning shortness of breath, PND, orthopnea or edema. No palpitations. Taking meds as directed. Family member present. [facility] Medical History (Updated 08/31/23 @ 10:48 by Elaine Vincent NP-C) Diabetic Charcot's foot Cataract of both eyes Supplemental oxygen dependent COVID-19 Asthma Cholecystectomy planned Hernia of abdominal wall delivery delivered Depression High cholesterol Tachycardia Diabetes Surgical History History of cataract surgery History of excision of pilonidal cyst Hx of oophorectomy Hx of umbilical hernia repair Hx of colonoscopy Hx of cholecystectomy Hx of section Hx of cardiac catheterization History of esophagogastroduodenoscopy (EGD) H/O foot surgery Family History Father No problems noted. Mother No problems noted. Sister H/O heart artery stent Social History Household Members: Other Household Members Other:: sister Housing: House Housing Other:: stays in hotel waiting for housing Are you a primary home health care physician to a significant other at home: No Do you presently have visiting nurse or other home services: Yes ([employer] 16 hours/week) Alcohol intake: never Patient Tobacco Use Status: Former Tobacco user Quit Date: 2013 Tobacco use type: Cigarette Second Hand Smoke Exposure: No Substance Use Type: Marijuana service: No Current occupational status: disabled Review of Systems Const All systems reviewed & are unremarkable except as noted in HPI and below Denies chills, Denies fatigue, Denies fever(s), Denies frequent falls, Reports weakness, Denies weight gain and Denies weight loss ENT Reports dizziness Card Denies chest pain, Reports rapid heart rate, Denies leg edema, Reports lightheadedness, Reports palpitations, Denies dyspnea and Denies dyspnea on exertion Resp Denies cough, Denies dyspnea and Denies dyspnea on exertion GI Denies hematochezia Musc Details: uses walker Denies abnormal gait, Denies muscle weakness, Denies numbness, Denies radiating pain into limb and Denies tingling Neuro Denies abnormal gait, Reports dizziness, Denies frequent falls, Denies numbness, Denies tingling and Reports weakness Endo Denies fatigue and Reports palpitations Physical Exam Vital Signs: Last Vital Signs Pulse 103 H 08/31/23 08:35 BP 130/60 08/31/23 08:35 BMI result Body Mass Index 37.4 Const Other: obesity, uses walker. braces on each ankle General: cooperative, comfortable and no acute distress Orientation/consciousness: patient oriented x3 Neck Neck: Yes normal visual inspection and Yes no JVD Resp Effort & Inspection: normal respiratory effort Auscultation: clear to auscultation bilaterally, no rales, no rhonchi and no wheezes Cardio Jugular venous distension: no JVD Rate: regular rate Rhythm: regular rhythm Heart sounds: S1 normal heart sound present, S2 normal heart sound present, no murmurs and no rubs Neuro General: patient oriented x3 Extrem General: Yes normal to inspection and No no pedal edema Psych Appearance: grossly normal Mental Status: mental status grossly normal Speech and movement: Normal speech and movement present Office Procedures EKG Details: Today, read by me, Sinus tachycardia, can't exclude prior anterior infarct, rate 103. QTc 442ms [id number], Complete Assessment & Plan Assessment & Plan (1) Lightheadedness: Code(s): R42 - Dizziness and giddiness Plan: Recent episodes of lightheadedness with associated weakness, nausea, diaphoresis and witnessed pale color. No full syncope. Recent weight loss. She tells me she drinks adequate water. Blood pressure checked by DAYNA today 130/60. Recheck done by me with patient sitting for 10 minutes, 88/60. Standing for 3 minutes, blood pressure recheck 68/40. She was symptomatic with clammy skin and lightheadedness. Positive orthostatic hypotension. She does not feel she needs ER evaluation. Will have her increase fluids up to 64 oz daily, increase salt in diet. Drink Gatorade 3 times weekly. Recognize symptoms and sit/lay down as needed. Compression stockings given to her from our office stock and instructed on their use. Avoid all medications that lower blood pressure. Watch for any signs of fluid overload. Emergency care if needed for worsening symptoms, syncope. Described finding of orthostatic hypotension and pathophysiology of it. Patient has longstanding diabetes which she says is now better controlled. Cardiology office visit in 1 month, sooner if needed. (2) Orthostatic hypotension: Code(s): I95.1 - Orthostatic hypotension Plan: New finding as above. Last echo done 05/06/2021 showed normal EF, mild LVH, impaired relaxation, normal valves, normal RV with mildly elevated right atrial pressures. EKG shows sinus tachycardia, rate 103 today. Blood pressure low. Will update echo prior to her next visit. (3) Atherosclerotic cardiovascular disease: Code(s): I25.10 - Atherosclerotic heart disease of platinum coronary artery without angina pectoris Plan: History of stents to the LAD and RCA 10/11/2021. She continues on aspirin and atorvastatin. Labs done 06/03/2022 showed LDL 55. She has no reports of anginal sounding symptoms. (4) Status post cardiac catheterization: Comment: 10/11/2021, mid LAD proximal section 99% stenosis, angioplasty and LLOYD placed, proximal RCA distal section 95% stenosis, angioplasty in 2 LLOYD placed, mid RCA LLOYD placed. Code(s): Z98.890 - Other specified postprocedural states Plan: As above (5) Chronic heart failure with preserved ejection fraction (HFpEF): Code(s): I50.32 - Chronic diastolic (congestive) heart failure Plan: History of heart failure with preserved EF. She does not appear fluid overloaded on examination. She is experiencing orthostatic hypotension. Will be having her increase her fluid and salt intake to help raise blood pressure. Signs of fluid retention reviewed. (6) Tachycardia: Code(s): R00.0 - Tachycardia, unspecified Plan: Sinus tachycardia today appears to be compensatory to low blood pressure readings. Instructed on increasing fluids. Plan Time spent on chart review, documentation, interview assess Coding Level of Care Code Est Pt Level 4 (48588) Diagnoses Lightheadedness R42 Orthostatic hypotension I95.1 Atherosclerotic cardiovascular disease I25.10 Status post cardiac catheterization Z98.890 Chronic heart failure with preserved ejection fraction (HFpEF) I50.32 Tachycardia R00.0 CPT Codes EKG - CPT: [id number], Complete ([id number]) Time Spent (min) 30
[2023-08-31 08:35] VITALS: BP 130/60; PULSE 103; BMI 37.4
== END 2023-08-31 09:24 | disposition home or self-care (01) ==
PROVIDERS: PCP Internal Medicine; Visit Provider Nurse Practitioner Family
DX: R42 Dizziness and giddiness (principal); I95.1 Orthostatic hypotension; I25.10 Atherosclerotic heart disease of native coronary artery without angina pectoris; Z98.890 Other specified postprocedural states; I50.32 Chronic diastolic (congestive) heart failure; R00.0 Tachycardia, unspecified
CPT/HCPCS: 93010; 99214

== ENCOUNTER → 2023-08-31 08:28 | Outpatient (BNVA) | payer OTHER, SELFPAY | PROVIDERS: PCP Internal Medicine; Visit Provider Nurse Practitioner Family | DX: R42 Dizziness and giddiness (principal); I95.1 Orthostatic hypotension; I25.10 Atherosclerotic heart disease of native coronary artery without angina pectoris; Z98.890 Other specified postprocedural states; I50.32 Chronic diastolic (congestive) heart failure; R00.0 Tachycardia, unspecified | CPT/HCPCS: 93005; 99212 ==

== ENCOUNTER 2023-09-25 08:57 | Outpatient (AMB) | payer OTHER, SELFPAY ==
[2023-09-25 09:05] VITALS: BP 70/48; PULSE 112; O2SAT 98; BMI 37.1
--- NOTE | 2023-09-25 09:05 | MHC.OFFVIS ---
Intake Vital Signs 09/25/23 09:05 09/25/23 09:46 Height 5 ft 3 in Weight 209 lb 7.026 oz BMI 37.1 BP 70/48 L 58/0 L Blood Pressure Location Rt brachial Rt brachial Position Sitting Standing Pulse 112 H Pulse Source Pulse Oximeter Pulse Oximetry (%) 98 Oxygen Delivery Method Room Air Intake Visit Reasons: 4 wk f/up Diver Tender Required: No Plastic Surgery Coordinator: Plastic Surgery Coordinator Present Allergies adhesive tape [ADHESIVE TAPE] Allergy (Intermediate, Verified 09/25/23 09:54) BLISTERS tramadol [TRAMADOL] Allergy (Intermediate, Verified 09/25/23 09:54) NAUSEA & VOMITING oxycodone [OXYCODONE] Adverse Reaction (Intermediate, Verified 09/25/23 09:54) ITCHING Medication List - Last Reconciled 09/25/23 by PAZ JacksonC adalimumab (Humira(CF) Pen) mg subcut Advair HFA 45-21 mcg/actuation (fluticasone propion-salmeterol) 2 puffs PO BID NS albuterol sulfate 90 mcg/actuation (Ventolin HFA) 1 puff inhalation Q6H PRN aripiprazole 10 mg PO DAILY aspirin 81 mg PO DAILY 90 days atorvastatin 40 mg PO BEDTIME blood pressure monitor As directed blood sugar diagnostic (FreeStyle Lite Strips) bupropion HCl XL 150 mg PO BID buspirone 10 mg PO BID duloxetine 30 mg PO BID fluticasone propionate 50 mcg/actuation 2 sprays intranasal DAILY gabapentin 300 mg PO BID loratadine 10 mg PO DAILY melatonin 5 mg PO BEDTIME metformin 1,000 mg PO BID omeprazole 20 mg PO BID Spiriva Respimat 1.25 mcg/actuation (tiotropium bromide) 2 puffs inhalation QAM NS HPI 4 wk f/up HPI Details Carol is a 53-year-old female with past medical history of obesity, diabetes, hyperlipidemia, smoking, COPD, CAD with LAD and RCA stents who was found to be orthostatic last visit which was managed with conservative measures and now presents for follow-up. Today she reports that since her last visit she has continued to have issues with lightheadedness, nausea, feeling clammy when being in an upright position. He does not had any full presyncope or syncope. She has not sought emergency care for these symptoms in the last month. She tells me today she is very lightheaded because she had to walk from the car and into our office. That is a much longer distance then she has been walking recently. She has been increasing her p.o. fluids, drinking Gatorade a few times weekly, increase the salt in her diet and is wearing the compression stockings. Her breathing is generally comfortable. She denies PND, edema. She sleeps with 3-4 pillows for comfort which is not new. She has no chest discomfort at rest or with activity. No heart palpitations. She is still reporting approximally 80 lb weight loss in the last year. She also states that her blood sugars had been very out of control but now they are well controlled with the weight loss. Our records seem to confirm about 30 lb in the last year and a half. She has not been on any antihypertensive agents. On last visit she reported being on metoprolol in the past which was stopped due to low blood pressures. She has not had any recent medication changes. She is mostly sedentary but does ambulate short distances using her walker. She has had falls in the past which are related to her weak ankles, not recent. She has braces on each ankle for support. Taking meds as directed. Family member/RODENT EXTERMINATOR present. FORMERLY [facility], [facility] Medical History Diabetic Charcot's foot Cataract of both eyes Supplemental oxygen dependent COVID-19 Asthma Cholecystectomy planned Hernia of abdominal wall delivery delivered Depression High cholesterol Tachycardia Diabetes Surgical History History of cataract surgery History of excision of pilonidal cyst Hx of oophorectomy Hx of umbilical hernia repair Hx of colonoscopy Hx of cholecystectomy Hx of section Hx of cardiac catheterization History of esophagogastroduodenoscopy (EGD) H/O foot surgery Family History Father No problems noted. Mother No problems noted. 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 No syncope Reports dizziness Card Denies chest pain, Denies chest pain at rest, Denies chest pain with activity, Reports rapid heart rate, Reports dyspnea, Denies dyspnea on exertion and Denies orthopnea Resp Reports dyspnea and Denies dyspnea on exertion Musc Denies abnormal gait and Denies limited range of motion Neuro Reports no additional complaints, Denies abnormal gait and Reports dizziness Physical Exam Vital Signs: Last Vital Signs Pulse 112 H 09/25/23 09:05 BP 58/0 L 09/25/23 09:46 BMI result Body Mass Index 37.1 Const Other: obesity, uses walker. braces on each ankle, pale, skin clammy to touch General: cooperative and no acute distress Orientation/consciousness: patient oriented x3 Neck Neck: Yes normal visual inspection and Yes no JVD Resp Effort & Inspection: normal respiratory effort Auscultation: clear to auscultation bilaterally, no rales, no rhonchi and no wheezes Cardio Jugular venous distension: no JVD Rate: tachycardic Rhythm: regular rhythm Heart sounds: S1 abnormal, S2 abnormal, no murmurs and no rubs Neuro General: patient oriented x3 Extrem General: Yes normal to inspection and No no pedal edema Psych Appearance: grossly normal Mental Status: mental status grossly normal Speech and movement: Normal speech and movement present Assessment & Plan Assessment & Plan (1) Lightheadedness: Code(s): R42 - Dizziness and giddiness Plan: Noted to have orthostatic hypotension last visit, 08/31/2023. At that time she was instructed to increase her fluids to at least 64 oz daily, increase salt in her diet, use caution with sitting to standing and wear compression stockings. Today she presents for follow-up and tells me her symptoms have persisted all month without improvement. She did not seek emergency medical care or notify us of ongoing symptoms. Today she reports extreme lightheadedness, diaphoresis, weakness because she had to walk from the car into our office which is a longer distance then she is normally walking. Initial blood pressure done by medical director/head team physician in the 60s systolic. Recheck done by me with her sitting was 70/48. With standing approximately 2 minutes I was able to faintly hear a blood pressure at 58 systolic. Her skin is clammy to touch. She has only mild shortness of breath with exertion which could be from deconditioning.. Her breathing has not been a primary problem recently. No chest discomfort at rest or with activity. She is not on any antihypertensives. She is on Abilify and duloxetine which can cause orthostatic hypotension. She has a history of uncontrolled diabetes and may have developed some autonomic dysfunction. Her weight loss may be contributing to this factor. At this time it is unsafe to send her home. I called report to the emergency room charge lpn. Patient agreeable to ER evaluation and treatment. Transported to the ER via wheelchair by medical director/head team physician. She was taken right into the ER bed and handoff made. (2) Orthostatic hypotension: Code(s): I95.1 - Orthostatic hypotension Plan: Newer finding as above. Last echo done 05/06/2021 showed normal EF, mild LVH, impaired relaxation, normal valves, normal RV with mildly elevated right atrial pressures. EKG shows sinus tachycardia, rate 103 today. Blood pressure low. Repeat echo still pending. (3) Atherosclerotic cardiovascular disease: Code(s): I25.10 - Atherosclerotic heart disease of [place] coronary artery without angina pectoris Plan: History of stents to the LAD and RCA 10/11/2021. She continues on aspirin and atorvastatin. Labs done 06/03/2022 showed LDL 55. She has no reports of anginal sounding symptoms. (4) Status post cardiac catheterization: Comment: 10/11/2021, mid LAD proximal section 99% stenosis, angioplasty and LLOYD placed, proximal RCA distal section 95% stenosis, angioplasty in 2 LLOYD placed, mid RCA LLOYD placed. Code(s): Z98.890 - Other specified postprocedural states Plan: As above (5) Chronic heart failure with preserved ejection fraction (HFpEF): Code(s): I50.32 - Chronic diastolic (congestive) heart failure Plan: History of heart failure with preserved EF. She does not appear fluid overloaded on examination. She is experiencing orthostatic hypotension. (6) Tachycardia: Code(s): R00.0 - Tachycardia, unspecified Plan: Sinus tachycardia today appears to be compensatory to low blood pressure readings. ER evaluation to be done. Spoke with ER provider and they will be working her up for possible PE as well. Plan Time spent on chart review, documentation, interview assess Coding Level of Care Code Est Pt Level 5 (01811) Diagnoses Lightheadedness R42 Orthostatic hypotension I95.1 Atherosclerotic cardiovascular disease I25.10 Status post cardiac catheterization Z98.890 Chronic heart failure with preserved ejection fraction (HFpEF) I50.32 Tachycardia R00.0 Time Spent (min) 30
[2023-09-25 09:46] VITALS: BP 58/0
== END 2023-09-25 09:43 | disposition home or self-care (01) ==
PROVIDERS: PCP Internal Medicine; Visit Provider Nurse Practitioner Family
DX: R42 Dizziness and giddiness (principal); I95.1 Orthostatic hypotension; I25.10 Atherosclerotic heart disease of native coronary artery without angina pectoris; Z98.890 Other specified postprocedural states; I50.32 Chronic diastolic (congestive) heart failure; R00.0 Tachycardia, unspecified
CPT/HCPCS: 93010; 99215

== ENCOUNTER 2023-09-25 09:48 | Observation (INO) | payer OTHER, SELFPAY ==
[2023-09-25] VITALS (10 sets, daily range): BP systolic 64–168; BP diastolic 35–96; PULSE 83–123; RESP 13–22; TEMP 36.4–36.9; O2SAT 86–100; BMI 35.7
--- NOTE | ~2023-09-25 | CT_ITS ---
EXAMINATION: CT HEAD WITHOUT CONTRAST CLINICAL INFORMATION: Fall. Head strike. COMPARISON: Previous head CT July 2017 TECHNIQUE: Contiguous axial imaging was performed from the skull base to vertex without intravenous administration of contrast. This CT examination was performed using dose optimization techniques as appropriate, variously including the following: *Automated exposure control *Adjustment of mA and/or kV according to patient size (this includes techniques or standardized protocols for targeted exams where dose is matched to indication/reason for exam; i.e. extremities or head) *Use of iterative reconstruction technique DLP: 571 mGy-cm FINDINGS: There is no evidence for an extra-axial collection. There is no evidence for intra-or extra-axial hemorrhage. The ventricles and extra-axial CSF spaces are appropriate. Chou-white matter differentiation is normal. No mass, mass effect or infarct is seen. Review of bone windows is normal. No skull fracture. Visualized paranasal sinuses, mastoid air cells and middle ears are clear. CT/CT head/brain wo IV con IMPRESSION: Unremarkable exam.
--- NOTE | ~2023-09-25 | CT_ITS ---
EXAMINATION: CT CERVICAL SPINE WITHOUT CONTRAST CLINICAL INFORMATION: Trauma COMPARISON: Previous cervical spine x-ray and MRI October 2017 TECHNIQUE: Axial images through the cervical spine without IV contrast. Sagittal and coronal reconstructions on the technologist work station were performed. This CT examination was performed using dose optimization techniques as appropriate, variously including the following: *Automated exposure control *Adjustment of mA and/or kV according to patient size (this includes techniques or standardized protocols for targeted exams where dose is matched to indication/reason for exam; i.e. extremities or head) *Use of iterative reconstruction technique DLP: 327 mGy-cm FINDINGS: Bone alignment is normal. No fracture or dislocation. Normal disc spaces. Normal prevertebral soft tissues. CT/CT cervical spine wo IV con IMPRESSION: Unremarkable exam. Fleischner guidelines were followed.
--- NOTE | ~2023-09-25 | CT_ITS ---
EXAMINATION: CT ABDOMEN AND PELVIS WITH CONTRAST CLINICAL INFORMATION: Fall. Abdominal trauma. COMPARISON: Previous CT of the abdomen and pelvis October 2020 TECHNIQUE: Multidetector volumetric images were obtained from the superior aspect of the liver through the pubic symphysis following administration 85 mL of Omnipaque 350 intravenous contrast. Sagittal and coronal reformatted images were obtained on the technologist's workstation. Oral contrast: Yes This CT examination was performed using dose optimization techniques as appropriate, variously including the following: *Automated exposure control *Adjustment of mA and/or kV according to patient size (this includes techniques or standardized protocols for targeted exams where dose is matched to indication/reason for exam; i.e. extremities or head) *Use of iterative reconstruction technique DLP: 939 mGy-cm FINDINGS: LIVER, GALLBLADDER, AND BILIARY TREE: Upper normal liver size. Caudate lobe and left lobe of liver are prominent questionable for early cirrhotic changes. No focal liver lesion. The gallbladder has been removed. No biliary duct dilatation. PANCREAS: Unremarkable. SPLEEN: Unremarkable. ADRENAL GLANDS: Unremarkable. KIDNEYS AND URETERS: The kidneys are normal in size, shape, and attenuation. No hydronephrosis, hydroureter, or calculi seen. No perinephric stranding. BLADDER: Unremarkable. GASTROINTESTINAL TRACT: The small and large bowel are unremarkable. The appendix is unremarkable. No ascites. No free air. ABDOMINAL WALL: Umbilical and periumbilical hernias containing fat. Evidence of previous left ventral hernia repair with mesh. LYMPH NODES: Normal. VASCULAR: Atherosclerotic disease. No aneurysm. PELVIC VISCERA: Unremarkable. OSSEOUS STRUCTURES: Mild degenerative changes of the spine. No fracture seen. CT/CT abdomen pelvis w IV con IMPRESSION: No acute findings. Upper normal size liver with prominent left lobe and caudate lobe. ? Early cirrhotic change. Fleischner guidelines were followed.
--- NOTE | ~2023-09-25 | CT_ITS ---
EXAMINATION: CT ANGIOGRAM OF THE CHEST WITH AND WITHOUT CONTRAST (CT PULMONARY ANGIOGRAM FOR PE) CLINICAL INFORMATION: Reason for Exam sob, tachycardia, orthostatic dizziness COMPARISON: Previous chest x-ray November 2020 and chest CTA October 2020 TECHNIQUE: Prior to contrast administration, noncontrast localization images were obtained. Subsequently, multidetector volumetric imaging was performed from the thoracic inlet to below the diaphragms following the administration of 85 mL Omnipaque 350 intravenous contrast. No contrast reaction reported Sagittal, coronal, and MIP oblique sagittal reformatted images were obtained on the CT workstation, uploaded to PACS, and reviewed. This CT examination was performed using dose optimization techniques as appropriate, variously including the following: *Automated exposure control *Adjustment of mA and/or kV according to patient size (this includes techniques or standardized protocols for targeted exams where dose is matched to indication/reason for exam; i.e. extremities or head) *Use of iterative reconstruction technique Total exam dose-length product 241 mGy-cm FINDINGS: QUALITY OF STUDY/CONTRAST BOLUS: Satisfactory. PULMONARY ARTERIES: No pulmonary emboli. THORACIC AORTA: No aneurysm. LUNG: Bilateral diffuse interstitial and air space disease, greatest at the lung bases. Differential would include pulmonary edema and pneumonia. PLEURA: No pleural effusion or pneumothorax. MEDIASTINUM: Enlarged heart.. No pericardial effusion. No enlarged hilar or mediastinal lymphadenopathy. No evidence of septal bowing or right heart strain. CORONARY ARTERY CALCIFICATION: Mild CHEST WALL/AXILLA: No axillary or internal mammary lymphadenopathy. OSSEOUS STRUCTURES: No acute or suspicious osseous abnormality. UPPER ABDOMEN: See abdominal and pelvic CT report from the same day No reflux of contrast into the hepatic veins to suggest elevated right heart pressures. CT/CT angio chest PE protocol IMPRESSION: No evidence of pulmonary embolism. Enlarged heart. Diffuse interstitial and airspace disease. Differential would include pulmonary edema and pneumonia. Clinical correlation recommended. VTE: negative
--- NOTE | 2023-09-25 09:56 | ECG_ITS ---
Test Reason : HYPOTENSION Blood Pressure : / mmHG Vent. Rate : 105 BPM Atrial Rate : 105 BPM P-R Int : 164 ms QRS Dur : 088 ms QT Int : 354 ms P-R-T Axes : 038 014 032 degrees QTc Int : 467 ms Sinus tachycardia Cannot rule out Anterior infarct , age undetermined Abnormal ECG When compared with ECG of 17-NOV-2020 21:01, No significant change was found Referred By: Teresa Jimenez Electronically Signed By:Jonathan Torres
--- NOTE | 2023-09-25 09:58 | ED_ITS ---
HPI - General Adult General Chief complaint: General Medical Stated complaint: FROM [facility] Time Seen by Provider: 09/25/23 09:56 Source: patient and family Mode of arrival: wheelchair (from cardiology ) Limitations: no limitations History of Present Illness HPI narrative: This is a 53-year-old female history of tachycardia, orthostatic hypotension, arthrosclerotic cardiovascular disease, hidradenitis, acute hypoxic respiratory failure, post acute sequelae of COVID, major depression, heart failure, diabetes, asthma presenting to the emergency department from Cardiology where she was noted to be hypotensive blood pressure 68/24, patient reports she has been feeling near syncopal, dizzy, weak and short of breath for the past few weeks. Patient is not on blood thinners. Because of the dizziness patient has been falling. She reports dizziness is worse with positional changes. Denies chest pain nausea, vomiting, abdominal pain, headache, vision changes. Related Data Home Medications ?Medication ?Instructions ?Recorded ?Confirmed blood sugar diagnostic (FreeStyle 11/17/20 09/25/23 Lite Strips) fluticasone propionate 50 2 spray intranasal DAILY 11/17/20 09/25/23 mcg/actuation nasal spray,suspension bupropion HCl 150 mg 24 hr tablet, 150 mg PO BID 08/15/21 09/25/23 extended release duloxetine 30 mg capsule,delayed 30 mg PO BID 08/15/21 09/25/23 release gabapentin 300 mg capsule 300 mg PO BID 08/15/21 09/25/23 buspirone 10 mg tablet 10 mg PO BID 10/22/21 09/25/23 omeprazole 20 mg capsule,delayed 20 mg PO BID 10/22/21 09/25/23 release aripiprazole 10 mg tablet 10 mg PO DAILY 06/03/22 09/25/23 loratadine 10 mg tablet 10 mg PO DAILY 06/03/22 09/25/23 melatonin 5 mg tablet 5 mg PO BEDTIME 06/03/22 09/25/23 metformin 1,000 mg tablet 1,000 mg PO BID 06/03/22 09/25/23 adalimumab 80 mg/0.8 mL mg subcut 09/25/23 09/25/23 subcutaneous pen kit (Humira(CF) Pen) Previous Rx's ?Medication ?Instructions ?Recorded blood pressure monitor #1 ea 01/03/22 albuterol sulfate 90 mcg/actuation 1 puff inhalation Q6H PRN wheezing 06/19/22 aerosol inhaler (Ventolin HFA) #1 ea atorvastatin 40 mg tablet 40 mg PO BEDTIME #30 tabs 07/06/23 aspirin 81 mg tablet,delayed 81 mg PO DAILY 90 days #90 tabs 08/28/23 release Spiriva Respimat 1.25 2 puff inhalation QAM #4 grams 09/21/23 mcg/actuation solution for inhalation (tiotropium bromide) Advair HFA 45 mcg-21 mcg/actuation 2 puff PO BID #12 grams 09/25/23 aerosol inhaler (fluticasone propion-salmeterol) Allergies Allergy/AdvReac Type Severity Reaction Status Date / Time adhesive tape [ADHESIVE TAPE] Allergy Intermediate BLISTERS Verified 09/25/23 09:54 tramadol [TRAMADOL] Allergy Intermediate NAUSEA & Verified 09/25/23 09:54 VOMITING oxycodone [OXYCODONE] AdvReac Intermediate ITCHING Verified 09/25/23 09:54 Review of Systems 2 Review of Systems: Yes all other systems are reviewed and are negative PMFSH Past Medical History Attestation statement: The following information was validated with the patient. Source: old records reviewed and nursing notes reviewed Medical History Diabetic Charcot's foot Cataract of both eyes Supplemental oxygen dependent COVID-19 Asthma Cholecystectomy planned Hernia of abdominal wall delivery delivered Depression High cholesterol Tachycardia Diabetes Surgical History History of cataract surgery History of excision of pilonidal cyst Hx of oophorectomy Hx of umbilical hernia repair Hx of colonoscopy Hx of cholecystectomy Hx of section Hx of cardiac catheterization History of esophagogastroduodenoscopy (EGD) H/O foot surgery Family History Family History Father No problems noted. Mother No problems noted. 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) Alcohol intake: never Patient Tobacco Use Status: Former Tobacco user Quit Date: 2013 Tobacco use type: Cigarette Second Hand Smoke Exposure: No Substance Use Type: Marijuana Advance Directives: No Advance Directives Information Provided: Yes service: No Current occupational status: disabled Physical Exam ED Vital Signs: Vital Signs - 24 hr 09/25/23 09:51 09/25/23 10:02 09/25/23 10:02 Temperature 98 F Pulse Rate 109 H 109 H 114 H Respiratory Rate 20 Blood Pressure 110/62 110/62 89/55 L Pulse Oximetry 86 L Oxygen Delivery Method Room Air 09/25/23 10:02 09/25/23 10:21 09/25/23 11:07 Temperature 97.9 F Pulse Rate 123 H 101 H 101 H Respiratory Rate 14 20 Blood Pressure 64/35 L 109/70 112/67 Pulse Oximetry 100 98 Oxygen Delivery Method Room Air Room Air 09/25/23 13:19 Temperature 98.0 F Pulse Rate 97 Respiratory Rate 22 H Blood Pressure 137/76 Pulse Oximetry 100 Oxygen Delivery Method Room Air Nasal Cannula with ETCO2 BMI result Body Mass Index 35.7 Hypotension, tachycardia Appearance: Alert.? Oriented X3.? No acute distress.? Head: Normocephalic, atraumatic, no step-offs or deformities Eyes: Pupils equal, round and reactive to light.? ENT: Pharynx normal.? Neck: Normal inspection.? Neck supple.? CVS: Normal heart rate and rhythm.? Pulses normal.? Respiratory: No respiratory distress.? Breath sounds normal.? Abdomen: Soft and nontender.? Skin: Skin warm .? Normal skin turgor .?patient appears pale and clammy. Extremities: No lower extremity edema.? No calf ttp. global weakness Back: No midline tenderness, no C-spine tenderness, full range of motion, no CVA tenderness bilaterally Neuro: Oriented X 3.? No motor deficit.? No sensory deficit. CN 2-12 intact . Normal [id number], steady tandem gait normal coordination. However patient gets dizzy with positional changes. Course Reevaluation(s) Reevaluation #1: CBC unremarkable. Chemistry with elevated potassium low, has been ordered. Elevated transaminases, this is not a new finding they have been elevated multiple times in the past. Alk-phos chronically elevated. TSH within normal limits. Normal troponin, normal BNP. Patient's pressure is improved after midodrine. CTA pending. Time: 11:35 Reevaluation #2: Head CT unremarkable. CT cervical spine unremarkable. CT abdomen pelvis no acute findings question early cirrhotic changes. CTA of the chest no evidence of pulmonary embolism enlarged heart, diffuse interstitial and airspace disease concerns for pneumonia as patient was at 1 point hypoxic, tachycardic. And she is complaining of new shortness of breath. At this time infection suspected blood cultures, lactic acid and antibiotics ordered. Will wait to order more fluids as patient does have a history of CHF. Time: 15:14 Reevaluation #3: Plan hospital admission Medications Administered Discontinued Medications Generic Name Dose Route Start Last Admin Trade Name Freq PRN Reason Stop Dose Admin Sodium Chloride 500 mls @ 500 mls/hr 09/25/23 10:00 09/25/23 11:10 Ns IV 09/25/23 10:59 Infused .Q1H BRIDGER Infusion Sodium Chloride 500 mls @ 500 mls/hr 09/25/23 11:00 09/25/23 12:45 Ns IV 09/25/23 11:59 Infused .Q1H BRIDGER Infusion Iohexol 100 ml 09/25/23 13:23 09/25/23 13:23 Iohexol 350 Mg/Ml 100 Ml Infus..Btl IV 09/25/23 13:24 65 ml ONCE ONE Administration Midodrine 10 mg 09/25/23 10:05 09/25/23 10:08 Midodrine Hcl 10 Mg Tablet PO 09/25/23 10:06 10 mg ONCE ONE Administration Sodium Zirconium Cyclosilicate 10 gm 09/25/23 11:22 09/25/23 11:34 Sodium Zirconium Cyclosilicate 10 Gm Powd.Pack PO 09/25/23 11:23 10 gm ONCE ONE Administration Medical Decision Making Medical Decision Making [facility] Narrative: [id number] 53 year old female presents w/ hypotension, dizziness, weakness and shortness of breath from cardiology sx on going for weeks but acutely worsening today. Physical exam patient appears pale and clammy. Orthostatic vital signs were done on initial arrival and significant orthostasis noted. I suspect this is secondary to poor p.o. intake/dehydration and not from infection. History and physical exam concerning for orthostatic hypotension with subsequent dizziness and falls. Will rule out pulmonary embolism. Unlikely ACS unlikely dissection. Will rule out metabolic derangements, infection although less likely. History and physical exam low suspicion for stroke, posterior stroke. Unlikely traumatic injury to chest abdomen or pelvis however will rule out due to frequent falls. Plan at this time labs, imaging, urine Differential Diagnosis Differential Diagnoses: The differential diagnosis associated with the presentation includes History and physical exam concerning for orthostatic hypotension with subsequent dizziness and falls. Will rule out pulmonary embolism. Unlikely ACS unlikely dissection. Will rule out metabolic derangements, infection although less likely. History and physical exam low suspicion for stroke, posterior stroke. Unlikely traumatic injury to chest abdomen or pelvis however will rule out due to frequent falls. Admission/Observation Consideration of admission/observation: Escalation of care including admission/observation considered Consult Healthcare Provider Management of the patient was discussed with: Change Management Facilitator (ashvin ) Lab Data MDM Lab Attestation statement: I reviewed the patient's lab results. 09/25/23 10:00 09/25/23 10:00 Labs: Lab Results 09/25/23 Range/Units 10:00 WBC 10.1 (4.8-10.8) X10*3/uL RBC 4.75 (4.20-5.50) X10*6/uL Hgb 14.6 D (12.0-16.0) g/dl Hct 45.2 D (37.0-47.0) % MCV 95.2 (80.0-98.0) fL MCH 30.7 (27.0-33.0) pg MCHC 32.3 (31.0-35.0) g/dl RDW 13.3 (11.0-16.0) % Plt Count 238 (160-400) X10*3/uL MPV 9.9 (9.4-12.3) fL Immature Gran % (Auto) 0.3 (0.0-0.4) % Neut % (Auto) 58.2 (45-73) % Lymph % (Auto) 35.0 (20-40) % [place] % (Auto) 4.0 (2-11) % Eos % (Auto) 2.2 (0-4) % Baso % (Auto) 0.3 (0-2) % Lymph # (Auto) 3.5 (1.2-4.9) X10*3/uL [place] # (Auto) 0.4 (0.1-1.2) X10*3/uL Eos # (Auto) 0.2 (0.0-0.4) X10*3/uL Baso # (Auto) 0.0 (0.0-0.2) X10*3/uL Abs Immat Gran (auto) 0.03 (0.00-0.03) X10*3/uL Absolute Neuts (auto) 5.9 (2.0-8.3) x10*3/uL Absolute Nucleated RBC 0.000 (0.0-0.012) X10*3/uL Nucleated RBC % (auto) 0.0 (0.0-0.2) /100WBC PT 11.6 (11.1-13.3) SEC INR 1.0 (0.9-1.1) Hold Blue Top SEE NOTE Sodium 141 (135-145) mmol/L Potassium 5.2 H (3.3-5.1) mmol/L Chloride 105 (96-108) mmol/L Carbon Dioxide 23 (22-29) mmol/L Anion Gap 18 (12-20) BUN 28 H (9-16) mg/dL Creatinine 1.18 (0.5-1.4) mg/dL Estim Creat Clear Calc 59.9 Estimated GFR 48 Random Glucose 171 H (60-115) mg/dL Calcium 9.2 (8.4-10.2) mg/dL Magnesium 1.8 (1.6-2.6) mg/dL Total Bilirubin 0.6 (0.0-1.0) mg/dL AST 51 H (5-31) U/L ALT 70 H (0-31) U/L Alkaline Phosphatase 141 H (39-117) U/L Troponin I High Sens 3.5 (<3.5-17.0) ng/L B-Natriuretic Peptide 14 (<100) pg/mL Total Protein 6.6 (6.5-8.0) g/dL Albumin 3.7 (3.5-5.0) g/dL TSH 3.46 (0.32-4.0) uIU/mL Independent Interpretation I performed an independent interpretation of an: EKG and CT Scan (Vent. Rate : 105 BPM Atrial Rate : 105 BPM P-R Int : 164 ms QRS Dur : 088 ms QT Int : 354 ms P-R-T Axes : 038 014 032 degrees QTc Int : 467 ms Sinus tachycardia Cannot rule out Anterior infarct , age undetermined Abnormal ECG When compared with ECG of 17-NOV-2020 21:01) Radiology Impression Discussion of test interpretation with radiology: I have reviewed the radiologist's reading. Independent Historian Clinical information obtained from an independent historian. History obtained from or confirmed by: Other (family memeber ) Chronic Conditions Patient?s care impacted by: Other (cad, chf, respiratory faliure ) Critical Care Time Critical Care Time Critical Care Time: Yes Total Critical Care Time: 45 Attestation: I attest to this time spent taking care of the patient, obtaining history, physical, reviewing labs, imaging, speaking to my attending, specialist or hospitalist. Discharge Plan Discharge Clinical Impression: Orthostatic hypotension, Pneumonia Patient Disposition: Admitted As Inpatient Prescriptions: No Action (DME) blood pressure monitor Kit See Rx Instructions .Route Qty: 1 0RF Rx Instructions: As directed albuterol sulfate [Ventolin HFA] 90 mcg/actuation HFA aerosol inhaler 1 puff inhalation Q6H PRN (Reason: wheezing) Qty: 1 0RF atorvastatin 40 mg tablet 40 mg PO BEDTIME Qty: 30 5RF aspirin 81 mg tablet,delayed release (DR/EC) 81 mg PO DAILY 90 Days Qty: 90 0RF Spiriva Respimat 1.25 mcg/actuation mist 2 puff inhalation QAM Qty: 4 0RF Advair HFA 45-21 mcg/actuation HFA aerosol inhaler 2 puff PO BID Qty: 12 0RF (DME) FreeStyle Lite Strips Strip MISCELLANEOUS TID fluticasone propionate 50 mcg/actuation spray,suspension 2 spray intranasal DAILY omeprazole 20 mg capsule,delayed release(DR/EC) 20 mg PO BID loratadine 10 mg tablet 10 mg PO DAILY metformin 1,000 mg tablet 1,000 mg PO BID aripiprazole 10 mg tablet 10 mg PO DAILY gabapentin 300 mg capsule 300 mg PO BID duloxetine 30 mg capsule,delayed release(DR/EC) 30 mg PO BID bupropion HCl 150 mg tablet extended release 24 hr 150 mg PO BID buspirone 10 mg tablet 10 mg PO BID melatonin 5 mg tablet 5 mg PO BEDTIME Humira(CF) Pen 80 mg/0.8 mL pen injector kit subcut Print Language: Kinyarwanda
[2023-09-25] MEDS: 0.9 % Sodium Chloride 500 ML IV ×2 (10:06→11:12)
[2023-09-25] MEDS: Midodrine HCl 10 MG TABLET PO (10:08)
[2023-09-25 10:18] LABS: MANUAL DIFF FLAG NO
--- NOTE | 2023-09-25 10:18 | PC.NURSE ---
Provider at bedside, pt arrived from cardiology. Pt placed on monitor, labs sent, awaiting CT scans at this time
[2023-09-25 10:26] LABS: Prothrombin Time 11.6 SEC (11.1-13.3)
[2023-09-25 10:42] LABS: B Type Natriuretic Peptide 14 pg/mL (<100); Troponin-I High Sensitivity 3.5 ng/L (<3.5-17.0)
[2023-09-25 10:48] LABS: Basophils Percent Auto 0.3 % (0-2); Eosinophils Absolute Auto 0.2 X10*3/uL (0.0-0.4); Eosinophils Percent Auto 2.2 % (0-4); Hematocrit 45.2 % (37.0-47.0); Hemoglobin 14.6 g/dl (12.0-16.0); Imm Gran Abs Auto 0.03 X10*3/uL (0.00-0.03); Imm Gran Pct Auto 0.3 % (0.0-0.4); Lymphocytes Absolute Auto 3.5 X10*3/uL (1.2-4.9); Mean Corpuscular HGB Conc 32.3 g/dl (31.0-35.0); Mean Corpuscular Hemoglobin 30.7 pg (27.0-33.0); Mean Corpuscular Volume 95.2 fL (80.0-98.0); Mean Platelet Volume 9.9 fL (9.4-12.3); Monocytes Absolute Auto 0.4 X10*3/uL (0.1-1.2); Neutrophils Absolute Auto 5.9 x10*3/uL (2.0-8.3); Neutrophils Percent Auto 58.2 % (45-73); Platelet Count 238 X10*3/uL (160-400); Red Blood Count 4.75 X10*6/uL (4.20-5.50); Red Cell Distribution Width 13.3 % (11.0-16.0); White Blood Count 10.1 X10*3/uL (4.8-10.8)
[2023-09-25 11:18] LABS: Alanine Aminotransferase 70 U/L (0-31); Albumin Level 3.7 g/dL (3.5-5.0); Alkaline Phosphatase 141 U/L (39-117); Anion Gap 18 (12-20); Aspartate Amino Transferase 51 U/L (5-31); Bilirubin Total 0.6 mg/dL (0.0-1.0); Blood Urea Nitrogen 28 mg/dL (9-16); Calcium 9.2 mg/dL (8.4-10.2); Carbon Dioxide 23 mmol/L (22-29); Chloride 105 mmol/L (96-108); Creatinine Clr Calc Pharmacy 59.9; Estimated Glomerular Filt Rate 48; Glucose Random 171 mg/dL (60-115); Magnesium 1.8 mg/dL (1.6-2.6); Potassium 5.2 mmol/L (3.3-5.1); Sodium 141 mmol/L (135-145); Total Protein 6.6 g/dL (6.5-8.0)
[2023-09-25 11:34] LABS: TSH reflex Free T4 3.46 uIU/mL (0.32-4.0)
[2023-09-25] MEDS: Sodium Zirconium Cyclosilicate 10 GM POWD.PACK PO (11:34)
[2023-09-25] MEDS: iohexoL 350 MG/ML 100 ML INFUS..BTL IV (13:23)
[2023-09-25] MEDS: cefTRIAXone sodium 1 GM in 0.9 % Sodium Chloride 50 ML IV (15:50)
--- NOTE | 2023-09-25 15:56 | PHA.MEDREC ---
Pharmacy Consult ? Medication Reconciliation Pharmacy has completed the medication reconciliation. Patient confirmed all medications, reports buspar is BID instead of TID. Kadi Parr, PharmD
[2023-09-25 16:05] LABS: Lactic Acid 1.7 mmol/L (0.5-2.0)
[2023-09-25] MEDS: Azithromycin 500 MG in 0.9 % Sodium Chloride 250 ML 125 MG IV (16:36)
--- NOTE | 2023-09-25 19:58 | MHC.EDTECH ---
This tech resumed care for patient @19:00. Patient is in good spirits, No Complaints at this time. Vitals done, Belonging list done.
--- NOTE | 2023-09-25 20:58 | PM.IMHP ---
History of Present Illness Date of Service: 09/25/23 Attending physician on admission: Rossi Silva Chief Complaint: Hypotension Pt is a 53-year-old female with a PMH significant for CAD with LAD and RCA stents, orthostatic hypotension,?sha-uwhpjcd-xluzvsija type 2 diabetes, HLD, COPD, and HFpEF who presents to the ED from cardiology office for evaluation of low BP. Pt had been found to be positive for orthostatic hypotension on previous visit on 08/31/2023 and was treated conservatively without starting any medications. Patient presented earlier this morning for follow-up and was found to be hypotensive as low as 68/24 and also again positive for orthostatic hypotension. Patient reports a long history of feeling lightheaded and dizzy especially with position changes and walking. Symptoms began over 1 year ago, but have progressively been getting worse. States lately has been falling at home with approximately 2 episodes per week for the past few months. Denies any head strike or loss of consciousness. Reports she has been eating and drinking normally, though notes she does not eat a whole lot though drinks water throughout the day. No recent nausea and vomiting, though had an episode of loose stool last night and again early this morning. No significant abdominal pain. Reports having a cold a few weeks ago and has had occasional nonproductive cough in the mornings. Denies fever, chills. No shortness of breath or fatigue. Denies chest pain/pressure. Reports chronic occasional palpitations. In the ED pt was tachycardic up to 123, tachypneic up to 22, and hypotensive as low as 64/35. Labs were significant for potassium 5.2, AST 51, ALT 70, and alk-phos 141. No leukocytosis. Stable H&H. Troponin 3.5. BNP 14. UA negative for UTI. CT of head was unremarkable with no acute findings. CT of cervical spine negative for acute fracture or dislocation. CTA of chest found no evidence of pulmonary embolism but did show enlarged heart and diffuse interstitial and airspace disease, with differential including pulmonary edema and pneumonia. CT?of abdomen and pelvis negative for acute findings but show question of early cirrhotic change of liver. EKG demonstrated sinus tachycardia of 105 without evidence of significant ST elevations or depressions. Pt was treated with IVF, midodrine, Lokelma, ceftriaxone, and azithromycin. Pt will be admitted to the hospital under observation for treatment and further evaluation of presyncope and hypotension likely secondary to orthostatic hypotension. Review of Systems Review of Systems: Lightheadedness, dizziness Frequent falls at home 2 episodes of loose stools last night and this morning Chronic palpitations No fever, chills Denies nausea, vomiting, abdominal pain Denies chest pain/pressure No shortness a breath or cough Denies fever PMFSH Medical History Diabetic Charcot's foot Cataract of both eyes Supplemental oxygen dependent COVID-19 Asthma Cholecystectomy planned Hernia of abdominal wall delivery delivered Depression High cholesterol Tachycardia Diabetes Family History Father No problems noted. Mother No problems noted. Sister H/O heart artery stent Surgical History History of cataract surgery History of excision of pilonidal cyst Hx of oophorectomy Hx of umbilical hernia repair Hx of colonoscopy Hx of cholecystectomy Hx of section Hx of cardiac catheterization History of esophagogastroduodenoscopy (EGD) H/O foot surgery Social History Household Members: Other Household Members Other:: sister Housing: House Housing Other:: stays in hotel waiting for housing Are you a primary dog day care attendant to a significant other at home: No Do you presently have visiting nurse or other home services: Yes ([employer] 16 hours/week) Alcohol intake: never Patient Tobacco Use Status: Former Tobacco user Quit Date: 2013 Tobacco use type: Cigarette Second Hand Smoke Exposure: No Substance Use Type: Marijuana Advance Directives: No Advance Directives Information Provided: Yes service: No Current occupational status: disabled Meds Allergies Allergy/AdvReac Type Severity Reaction Status Date / Time adhesive tape [ADHESIVE TAPE] Allergy Intermediate BLISTERS Verified 09/25/23 09:54 tramadol [TRAMADOL] Allergy Intermediate NAUSEA & Verified 09/25/23 09:54 VOMITING oxycodone [OXYCODONE] AdvReac Intermediate ITCHING Verified 09/25/23 09:54 Active Medications: Current Medications Acetaminophen (Acetaminophen 325 Mg Tablet) 650 mg PO Q6H PRN PRN Reason: Pain, Mild (Pain Scale 1-3) Enoxaparin Sodium (Enoxaparin Sodium 40 Mg/0.4 Ml Syringe) 40 mg SUBCUT Q24H [facility] Melatonin (Melatonin 3 Mg Tablet) 6 mg PO BEDTIME PRN PRN Reason: Insomnia Ondansetron HCl (Ondansetron Hcl 4 Mg/2 Ml Vial) 4 mg IVPUSH Q8H PRN PRN Reason: Nausea and Vomiting Sodium Chloride (0.9 % Sodium Chloride Flush 3 Ml Syringe) 3 ml IVFLUSH QSHIFT [facility] Home Medications ?Medication ?Instructions ?Recorded ?Confirmed ?Last Taken ?Type blood sugar diagnostic (FreeStyle 11/17/20 09/25/23 Unknown History Lite Strips) fluticasone propionate 50 2 spray intranasal DAILY PRN 11/17/20 09/25/23 Unknown History mcg/actuation nasal Congestion spray,suspension bupropion HCl 150 mg 24 hr tablet, 150 mg PO BID 08/15/21 09/25/23 09/25/23 History extended release duloxetine 30 mg capsule,delayed 30 mg PO BID 08/15/21 09/25/23 09/25/23 History release gabapentin 300 mg capsule 300 mg PO BID 08/15/21 09/25/23 09/25/23 History buspirone 10 mg tablet 10 mg PO BID 10/22/21 09/25/23 09/25/23 History omeprazole 20 mg capsule,delayed 20 mg PO BID 10/22/21 09/25/23 09/25/23 History release loratadine 10 mg tablet 10 mg PO DAILY 06/03/22 09/25/23 09/25/23 History melatonin 5 mg tablet 10 mg PO BEDTIME 06/03/22 09/25/23 09/24/23 History metformin 1,000 mg tablet 1,000 mg PO BID 06/03/22 09/25/23 09/25/23 History Lactobacillus acidophilus 500 500,000,000 cell PO DAILY 09/25/23 09/25/23 09/25/23 History million cell capsule adalimumab 80 mg/0.8 mL 80 mg subcut Q14D 09/25/23 09/25/23 Unknown History subcutaneous pen kit (Humira(CF) Pen) aripiprazole 5 mg tablet 5 mg PO DAILY 09/25/23 09/25/23 09/25/23 History clindamycin phosphate 1 % lotion 1 appl topical BID 09/25/23 09/25/23 Unknown History doxycycline monohydrate 100 mg 100 mg PO BID 09/25/23 09/25/23 09/25/23 History capsule magnesium oxide 400 mg (241.3 mg 400 mg PO DAILY 09/25/23 09/25/23 09/25/23 History magnesium) tablet nystatin 100,000 unit/gram topical 1 appl topical BID 09/25/23 09/25/23 Unknown History powder Physical Exam Vital Signs and Narrative: Vital Signs: Last Vital Signs Temp 98.4 F 09/25/23 19:54 Pulse 95 09/25/23 19:54 Resp 13 09/25/23 19:54 BP 168/96 H 09/25/23 19:54 Pulse Ox 99 09/25/23 19:54 O2 Del Method Room Air 09/25/23 19:54 BMI result Body Mass Index 35.7 Constitutional: Alert, in no acute distress. Mental Status: Oriented to person, place and time. Eyes: Pupils are equal, round, and reactive to light. Ear, Nose, and Throat: Oropharynx clear, mucous membranes moist. Ears and nose without deformities. Trachea midline. Respiratory: Clear to auscultation bilaterally. No wheezing, rales, or rhonchi. Cardiovascular: S1, S2 regular. No murmurs, rubs, or gallops. Gastrointestinal: Abdomen soft, non-tender, non-distended. Normal bowel sounds. Neurologic: Cranial nerves II-XII are grossly intact bilaterally. No focal neurological deficits. Moves all extremities spontaneously. Skin: Warm, dry. Extremities: No edema. Psychiatric: Normal mood and affect. Results Labs 09/25/23 10:00 09/25/23 10:00 Labs: Laboratory Results - last 24 hr 09/25/23 09/25/23 10:00 15:41 MCV 95.2 MCH 30.7 MCHC 32.3 RDW 13.3 Plt Count 238 MPV 9.9 Immature Gran % (Auto) 0.3 Neut % (Auto) 58.2 Lymph % (Auto) 35.0 Routt % (Auto) 4.0 Eos % (Auto) 2.2 Baso % (Auto) 0.3 Lymph # (Auto) 3.5 Routt # (Auto) 0.4 Eos # (Auto) 0.2 Baso # (Auto) 0.0 Abs Immat Gran (auto) 0.03 Absolute Neuts (auto) 5.9 Absolute Nucleated RBC 0.000 Nucleated RBC % (auto) 0.0 PT 11.6 INR 1.0 Hold Blue Top SEE NOTE Anion Gap 18 Estim Creat Clear Calc 59.9 Estimated GFR 48 Random Glucose 171 H Lactic Acid 1.7 Calcium 9.2 Magnesium 1.8 Total Bilirubin 0.6 AST 51 H ALT 70 H Alkaline Phosphatase 141 H Troponin I High Sens 3.5 B-Natriuretic Peptide 14 Total Protein 6.6 Albumin 3.7 TSH 3.46 Imaging Radiologist's Impressions: Impressions Abdomen/Pelvis CT 09/25/23 13:22 IMPRESSION: No acute findings. Upper normal size liver with prominent left lobe and caudate lobe. ? Early cirrhotic change. Fleischner guidelines were followed. Cervical Spine CT 09/25/23 13:22 IMPRESSION: Unremarkable exam. Fleischner guidelines were followed. Chest CTA 09/25/23 13:22 IMPRESSION: No evidence of pulmonary embolism. Enlarged heart. Diffuse interstitial and airspace disease. Differential would include pulmonary edema and pneumonia. Clinical correlation recommended. VTE: negative Head CT 09/25/23 13:22 IMPRESSION: Unremarkable exam. Assessment and Plan (1) Orthostatic hypotension: Status: Acute Plan Pt is a 53-year-old female with a PMH significant for CAD with LAD and RCA stents, orthostatic hypotension,?ida-cbqiaew-mksvvqmie type 2 diabetes, HLD, COPD, and HFpEF who presents to the ED from cardiology office for evaluation of low BP. Pt will be admitted to the hospital under observation for treatment and further evaluation of presyncope and hypotension likely secondary to orthostatic hypotension. Presyncope Pt with lightheadedness, dizzyness, frequent falls at home Positive for orthostatics at Cardiology office on 08/31/2023 and again earlier today BP as low as 64/35 in ED Patient given IVF and midodrine with good response Will repeat orthostatics tomorrow Cardiology consult, followed by Dr. Thakkar Monitor on telemetry Question of pneumonia CT with question of pulmonary edema vs pneumonia Pt denies productive cough, fever, chills, fatigue, or SOB; no leukocytosis No indication to continue antibiotics for pneumonia at this time Tachycardia Likely compensatory, secondary to hypovolemia not due to sepsis Patient received IVF in ED Hyperkalemia Potassium mildly elevated at 5.2 Patient given Lokelma in the ED Follow potassium COPD Not in acute exacerbation Continue home inhalers CAD/HLD Continue statin, aspirin Mak-kmsqxlt-nuxpgaihn type 2 diabetes Sliding-scale insulin, diabetic diet GERD PPI Full Code Attending:?Dr. Silva DVT Prophylaxis: Lovenox Patient will be admitted to the hospital under observation for treatment further evaluation of presyncope likely secondary to orthostatic hypotension. Patient required close monitoring of vitals and cardiac function, as well as specialist consultation with Cardiology tomorrow. Quality Stroke Does the patient have a stroke diagnosis?: No VTE Prior VTE?: No VTE Risk Level:: Medical - moderate - high VTE Device Contraindication: Treatment Not Indicated VTE Drug Contraindication: N/A - Med Ordered
[2023-09-25 21:12] LABS: Appearance Urine Clear; Color Urine Yellow; Glucose Urine UA Negative (Negative); Leukocyte Esterase Urine Negative (Negative); Nitrite Urine Negative (Negative); Specific Gravity - Urine >= 1.030 (1.005-1.025); Urine Blood Negative (Negative); Urine Ketones Negative (Negative); Urine Protein Negative (Neg-Trace)
--- NOTE | 2023-09-25 21:15 | MHC.EDTECH ---
@20:55 Pt rang fer for help to commode @21:03 Pt rang fer for Help up from commode so take could gather Urine for UA testing. @21:07 Pt rang fer for help off the commode, and back to bed. Commode then cleaned out. Pt requested some jello, and diet new colin. This tech brought pt 2 jellos, 2 diet new colin and a cup of ice.
[2023-09-25] MEDS: Acetaminophen 325 MG TABLET 650 MG PO (23:09)
[2023-09-25] MEDS: 0.9 % Sodium Chloride Flush 3 ML SYRINGE IVFLUSH (23:09)
[2023-09-25] MEDS: Enoxaparin Sodium 40 MG/0.4 ML SYRINGE SUBCUT (23:09)
--- NOTE | 2023-09-25 23:22 | MHC.EDTECH ---
Pillow given to patient at this time.
[2023-09-26] VITALS (9 sets, daily range): BP systolic 125–176; BP diastolic 80–97; PULSE 91–108; RESP 13–20; TEMP 36.6–36.8; O2SAT 91–99
--- NOTE | 2023-09-26 00:27 | MHC.EDTECH ---
@ 00:15 Pt rang [place] for help to the commode. @ 00:20 Pt rang [place] for help back to bed. Vitals obtained
--- NOTE | 2023-09-26 04:37 | PC.NURSE ---
pt reports iv is itchy. dry blood noted under tegaderm. tegaderm removed, cleaned and new one placed. iv intact. pt reports feels better. smell area redness noted, picture taken to reassess/compare. nad. resp even and unlabored. pt calling appropriately for standby assist to commode. call monroe within reach.
[2023-09-26 05:02] LABS: MANUAL DIFF FLAG NO
[2023-09-26 05:04] LABS: Basophils Percent Auto 0.4 % (0-2); Eosinophils Absolute Auto 0.2 X10*3/uL (0.0-0.4); Eosinophils Percent Auto 1.9 % (0-4); Hemoglobin 12.2 g/dl (12.0-16.0); Imm Gran Abs Auto 0.01 X10*3/uL (0.00-0.03); Imm Gran Pct Auto 0.1 % (0.0-0.4); Lymphocytes Absolute Auto 3.8 X10*3/uL (1.2-4.9); Lymphocytes Percent Auto 46.8 % (20-40); Mean Corpuscular HGB Conc 33.9 g/dl (31.0-35.0); Mean Corpuscular Hemoglobin 31.3 pg (27.0-33.0); Mean Corpuscular Volume 92.3 fL (80.0-98.0); Mean Platelet Volume 9.3 fL (9.4-12.3); Monocytes Absolute Auto 0.4 X10*3/uL (0.1-1.2); Monocytes Percent Auto 4.8 % (2-11); Neutrophils Absolute Auto 3.7 x10*3/uL (2.0-8.3); Platelet Count 160 X10*3/uL (160-400); Red Cell Distribution Width 13.2 % (11.0-16.0); White Blood Count 8.1 X10*3/uL (4.8-10.8)
[2023-09-26 05:16] LABS: Anion Gap 12 (12-20); Blood Urea Nitrogen 22 mg/dL (9-16); Calcium 8.8 mg/dL (8.4-10.2); Carbon Dioxide 26 mmol/L (22-29); Chloride 107 mmol/L (96-108); Creatinine Clr Calc Pharmacy 98.3; Estimated Glomerular Filt Rate > 60; Glucose Random 94 mg/dL (60-115); Potassium 4.4 mmol/L (3.3-5.1); Sodium 141 mmol/L (135-145)
--- NOTE | 2023-09-26 05:33 | MHC.EDTECH ---
At this time, moved patient to room 10. helped to commode, and back to bed. Commode cleaned out, vitals obtained
[2023-09-26 07:51] LABS: Glucose, Whole Blood 134 mg/dL (60-115)
[2023-09-26] MEDS: buPROPion HCl XL 150 MG TAB.ER.24H PO (09:06)
[2023-09-26] MEDS: Omeprazole 20 MG CAPSULE.DR PO (09:06)
[2023-09-26] MEDS: Doxycycline Monohydrate 100 MG CAPSULE PO (09:06)
[2023-09-26] MEDS: Loratadine 10 MG TABLET PO (09:06)
[2023-09-26] MEDS: Magnesium Oxide 400 MG TABLET PO (09:06)
[2023-09-26] MEDS: ARIPiprazole 5 MG TABLET PO (09:06)
[2023-09-26] MEDS: busPIRone HCl 10 MG TABLET PO (09:07)
[2023-09-26] MEDS: Aspirin Enteric Coated 81 MG TABLET.DR PO (09:07)
[2023-09-26] MEDS: Gabapentin 300 MG CAPSULE PO (09:07)
[2023-09-26] MEDS: 0.9 % Sodium Chloride Flush 3 ML SYRINGE IVFLUSH (09:07)
--- NOTE | 2023-09-26 10:21 | P.PNIM_ITS ---
Subjective Subjective Date of Service: 09/26/23 Interval History: no further lightheadedness Physical Exam 2 Vital Signs: Vital Signs: Last Vital Signs Temp 98.2 F 09/26/23 08:04 Pulse 102 H 09/26/23 09:10 Resp 20 09/26/23 09:10 BP 133/95 H 09/26/23 09:10 Pulse Ox 99 09/26/23 09:10 O2 Del Method Room Air 09/26/23 09:10 BMI result Body Mass Index 35.7 General: AO X 3, no acute distress Resp: CTA bilateral, no accessory muscles used CVS: S1,S2,RRR GI: soft, non tender, non distended Neuro: motor grossly intact, alert Psych: appropriate affect, appropriate insight Objective Data Active Medications Acetaminophen (Acetaminophen 325 Mg Tablet) 650 mg PO Q6H PRN PRN Reason: Pain, Mild (Pain Scale 1-3) Last Admin: 09/25/23 23:09 Dose: 650 mg Documented By: HEIKE Albuterol Sulfate (Albuterol Sulfate 90 Mcg 8 Gm Inhaler) 1 puff INHALE Q6H PRN PRN Reason: wheezing Albuterol/Ipratropium (Albuterol/Iprat 2.5/0.5mg 3 Ml Ampul.Neb) 3 ml INHALE Q4H PRN PRN Reason: Wheezing Aripiprazole (Aripiprazole 5 Mg Tablet) 5 mg PO DAILY [facility] Last Admin: 09/26/23 09:06 Dose: 5 mg Documented By: URMILA Aspirin (Aspirin Enteric Coated 81 Mg Tablet.Dr) 81 mg PO DAILY [facility] Last Admin: 09/26/23 09:07 Dose: 81 mg Documented By: URMILA Atorvastatin Calcium (Atorvastatin Calcium 40 Mg Tablet) 40 mg PO BEDTIME [facility] Bupropion HCl (Bupropion Hcl Xl 150 Mg Tab.Er.24h) 150 mg PO BID [facility] Last Admin: 09/26/23 09:06 Dose: 150 mg Documented By: URMILA Buspirone HCl (Buspirone Hcl 10 Mg Tablet) 10 mg PO BID [facility] Last Admin: 09/26/23 09:07 Dose: 10 mg Documented By: URMILA Doxycycline Monohydrate (Doxycycline Monohydrate 100 Mg Capsule) 100 mg PO BID [facility] Last Admin: 09/26/23 09:06 Dose: 100 mg Documented By: URMILA Duloxetine HCl (Duloxetine Hcl 30 Mg Capsule.) 30 mg PO BID [facility] Enoxaparin Sodium (Enoxaparin Sodium 40 Mg/0.4 Ml Syringe) 40 mg SUBCUT Q24H [facility] Last Admin: 09/25/23 23:09 Dose: 40 mg Documented By: HEIKE Fluticasone/Vilanterol (Fluticasone/Vilanterol 100/25 Blst.W.Dev) 1 puff INHALE RDAILY [facility] Gabapentin (Gabapentin 300 Mg Capsule) 300 mg PO BID [facility] Last Admin: 09/26/23 09:07 Dose: 300 mg Documented By: URMILA Glucose (Glucose Gel 15 Gm Gel..Gram.) 15 gm PO Q15M PRN; Protocol PRN Reason: per Hypoglycemia Standing Ord. Hydrocortisone (Hydrocortisone 1 % Cream 28.35 Gm Tube) 1 appl TOPICAL BID PRN; Protocol PRN Reason: pruritis Dextrose (D10) 250 mls @ 750 mls/hr IV Q15M PRN; Protocol PRN Reason: per Hypoglycemia Standing Ord. Insulin Human Lispro (Insulin Lispro 100 Unit/Ml 3 Ml Vial) 0 unit SUBCUT QIDACHS [facility]; Protocol Last Admin: 09/26/23 07:53 Dose: Not Given Documented By: URMILA Non-Admin Reason: No Insulin Coverage Loratadine (Loratadine 10 Mg Tablet) 10 mg PO DAILY [facility] Last Admin: 09/26/23 09:06 Dose: 10 mg Documented By: URMILA Magnesium Oxide (Magnesium Oxide 400 Mg Tablet) 400 mg PO DAILY [facility] Last Admin: 09/26/23 09:06 Dose: 400 mg Documented By: URMILA Melatonin (Melatonin 3 Mg Tablet) 6 mg PO BEDTIME PRN PRN Reason: Insomnia Omeprazole (Omeprazole 20 Mg Capsule.) 20 mg PO BID [facility] Last Admin: 09/26/23 09:06 Dose: 20 mg Documented By: URMILA Ondansetron HCl (Ondansetron Hcl 4 Mg/2 Ml Vial) 4 mg IVPUSH Q8H PRN PRN Reason: Nausea and Vomiting Sodium Chloride (0.9 % Sodium Chloride Flush 3 Ml Syringe) 3 ml IVFLUSH QSHIFT [facility] Last Admin: 09/26/23 09:07 Dose: 3 ml Documented By: URMILA Labs 09/26/23 04:50 09/26/23 04:50 Labs: Laboratory Results - last 24 hr 09/25/23 09/25/23 09/25/23 10:00 15:41 21:05 MCV 95.2 MCH 30.7 MCHC 32.3 RDW 13.3 Plt Count 238 MPV 9.9 Immature Gran % (Auto) 0.3 Neut % (Auto) 58.2 Lymph % (Auto) 35.0 [place] % (Auto) 4.0 Eos % (Auto) 2.2 Baso % (Auto) 0.3 Lymph # (Auto) 3.5 [place] # (Auto) 0.4 Eos # (Auto) 0.2 Baso # (Auto) 0.0 Abs Immat Gran (auto) 0.03 Absolute Neuts (auto) 5.9 Absolute Nucleated RBC 0.000 Nucleated RBC % (auto) 0.0 PT 11.6 INR 1.0 Anion Gap 18 Estim Creat Clear Calc 59.9 Estimated GFR 48 POC Glucose Random Glucose 171 H Lactic Acid 1.7 Calcium 9.2 Magnesium 1.8 Total Bilirubin 0.6 AST 51 H ALT 70 H Alkaline Phosphatase 141 H Troponin I High Sens 3.5 B-Natriuretic Peptide 14 Total Protein 6.6 Albumin 3.7 TSH 3.46 Urine Color Yellow Urine Appearance Clear Urine pH 5.0 Ur Specific [place] >= 1.030 H Urine Protein Negative Urine Glucose (UA) Negative Urine Ketones Negative Urine Blood Negative Urine Nitrite Negative Ur Leukocyte Esterase Negative 09/26/23 09/26/23 04:50 07:45 MCV 92.3 MCH 31.3 MCHC 33.9 RDW 13.2 Plt Count 160 D MPV 9.3 L Immature Gran % (Auto) 0.1 Neut % (Auto) 46.0 Lymph % (Auto) 46.8 H [place] % (Auto) 4.8 Eos % (Auto) 1.9 Baso % (Auto) 0.4 Lymph # (Auto) 3.8 [place] # (Auto) 0.4 Eos # (Auto) 0.2 Baso # (Auto) 0.0 Abs Immat Gran (auto) 0.01 Absolute Neuts (auto) 3.7 Absolute Nucleated RBC 0.000 Nucleated RBC % (auto) 0.0 PT INR Anion Gap 12 Estim Creat Clear Calc 98.3 Estimated GFR > 60 POC Glucose 134 H Random Glucose 94 Lactic Acid Calcium 8.8 Magnesium Total Bilirubin AST ALT Alkaline Phosphatase Troponin I High Sens B-Natriuretic Peptide Total Protein Albumin TSH Urine Color Urine Appearance Urine pH Ur Specific [place] Urine Protein Urine Glucose (UA) Urine Ketones Urine Blood Urine Nitrite Ur Leukocyte Esterase Assessment and Plan (1) Orthostatic hypotension: Status: Acute Plan 53F PMH cad, orthostatic hypotension, obesity, hydradenitis supperativa on humira, dm, hld, copd, hfpef, sent from cadriology office for significant orthostatic hypotension. Presyncope due to orthostatic hypotension with supine hypertension Improved with IV fluids Follow-up cardiology COPD Stable, continue inhalers Coronary artery disease Aspirin statin Diabetes Insulin sliding scale Obesity Weight loss is recommended CTA finding of questionable pneumonia Doubt pneumonia, patient without fever, leukocytosis, cough Will hold off on antibiotics DVT prophylaxis with Lovenox Full Code reason for continued hospitalization: Awaiting cardio eval, still with some orthostasis Quality Stroke Does the patient have a stroke diagnosis?: No VTE Prior VTE?: No VTE Risk Level:: Medical - moderate - high VTE Device Contraindication: Treatment Not Indicated VTE Drug Contraindication: N/A - Med Ordered
[2023-09-26] MEDS: DULoxetine HCl 30 MG CAPSULE.DR PO (10:41)
[2023-09-26] MEDS: Fluticasone/Vilanterol 100/25 BLST.W.DEV 1 PUFF INHALE (11:02)
--- NOTE | 2023-09-26 11:11 | PC.NURSE ---
called pharmacy for hydrocortisone cream not available in [facility]
--- NOTE | 2023-09-26 11:13 | PC.NURSE ---
cardiology at bedside for consult
[2023-09-26] MEDS: Hydrocortisone 1 % Cream 28.35 GM TUBE 1 APPL TOPICAL (11:25)
--- NOTE | 2023-09-26 12:39 | P.DS_ITS ---
DS: Providers Provider Date of Service: 09/26/23 Date of admission: 09/25/23 20:33 Primary care physician: Unknown Physician Consults: 09/25/23 20:54 Consult to Cardiology Routine [place]ing [place] [facility] [facility] [place] Reason for consultation: Presyncope, hypotension DS: Diagnosis Discharge Diagnosis (1) Orthostatic hypotension: Status: Acute DS: Summary Hospital Course Hospital Course: from initial hpi: 53-year-old female with a PMH significant for CAD with LAD and RCA stents, orthostatic hypotension, [id number] type 2 diabetes, HLD, COPD, and HFpEF who presents to the ED from cardiology office for evaluation of low BP. Pt had been found to be positive for orthostatic hypotension on previous visit on 08/31/2023 and was treated conservatively without starting any medications. Patient presented earlier this morning for follow-up and was found to be hypotensive as low as 68/24 and also again positive for orthostatic hypotension. Patient reports a long history of feeling lightheaded and dizzy especially with position changes and walking. Symptoms began over 1 year ago, but have progressively been getting worse. States lately has been falling at home with approximately 2 episodes per week for the past few months. Denies any head strike or loss of consciousness. Reports she has been eating and drinking normally, though notes she does not eat a whole lot though drinks water throughout the day. No recent nausea and vomiting, though had an episode of loose stool last night and again early this morning. No significant abdominal pain. Reports having a cold a few weeks ago and has had occasional nonproductive cough in the mornings. Denies fever, chills. No shortness of breath or fatigue. Denies chest pain/pressure. Reports chronic occasional palp itations. In the ED pt was tachycardic up to 123, tachypneic up to 22, and hypotensive as low as 64/35. Labs were significant for potassium 5.2, AST 51, ALT 70, and alk- phos 141. No leukocytosis. Stable H&H. Troponin 3.5. BNP 14. UA negative for UTI. CT of head was unremarkable with no acute findings. CT of cervical spine negative for acute fracture or dislocation. CTA of chest found no evidence of pulmonary embolism but did show enlarged heart and diffuse interstitial and airspace disease, with differential including pulmonary edema and pneumonia. CT of abdomen and pelvis negative for acute findings but show question of early cirrhotic change of liver. EKG demonstrated sinus tachycardia of 105 without evidence of significant ST elevations or depressions. Pt was treated with IVF, midodrine, Lokelma, ceftriaxone, and azithromycin. Pt will be admitted to the hospital under observation for treatment and further evaluation of presyncope and hypotension likely secondary to orthostatic hypotension. hospital course: Patient was admitted for presyncope due to orthostatic hypotension with supine hypertension. This was likely due to hypovolemia improved with IV fluids. Was seen by Cardiology recommended maintaining hydration. Patient is feeling better will be discharged home. For COPD remained stable on inhalers. For coronary disease was continue aspirin statin. For diabetes was continued on insulin sliding scale. For obesity weight loss recommended. Patient did have a CTA which had findings questionable for pneumonia. However, patient did not have any fevers, leukocytosis or cough, doubt pneumonia. Patient is on doxycycline for hidradenitis suppurativa, would not add further antibiotics at this time. Time Attestation Discharge Coordination Time (in mins): 35 Quality: Safe Use of Opioids Does Pt have an Active Cancer Diagnosis on the Problem List?: No Quality: Stroke Does the patient have a stroke diagnosis?: No Physical Exam Vital Signs: Vital Signs: Last Vital Signs Temp 98.2 F 09/26/23 08:04 Pulse 99 09/26/23 11:02 Resp 18 09/26/23 11:02 BP 133/95 H 09/26/23 09:10 Pulse Ox 99 09/26/23 09:10 O2 Del Method Room Air 09/26/23 09:10 BMI result Body Mass Index 35.7 General: AO X 3, no acute distress Resp: CTA bilateral, no accessory muscles used CVS: S1,S2,RRR GI: soft, non tender, non distended Neuro: motor grossly intact, alert Psych: appropriate affect, appropriate insight DS: Data Data Completed and Pending Labs on day of discharge: Laboratory Results - last 24 hr 09/25/23 09/25/23 09/26/23 15:41 21:05 04:50 WBC 8.1 RBC 3.90 L Hgb 12.2 Hct 36.0 L D MCV 92.3 MCH 31.3 MCHC 33.9 RDW 13.2 Plt Count 160 D MPV 9.3 L Immature Gran % (Auto) 0.1 Neut % (Auto) 46.0 Lymph % (Auto) 46.8 H [place] % (Auto) 4.8 Eos % (Auto) 1.9 Baso % (Auto) 0.4 Lymph # (Auto) 3.8 [place] # (Auto) 0.4 Eos # (Auto) 0.2 Baso # (Auto) 0.0 Abs Immat Gran (auto) 0.01 Absolute Neuts (auto) 3.7 Absolute Nucleated RBC 0.000 Nucleated RBC % (auto) 0.0 Sodium 141 Potassium 4.4 Chloride 107 Carbon Dioxide 26 Anion Gap 12 BUN 22 H Creatinine 0.72 Estim Creat Clear Calc 98.3 Estimated GFR > 60 POC Glucose Random Glucose 94 Lactic Acid 1.7 Calcium 8.8 Urine Color Yellow Urine Appearance Clear Urine pH 5.0 Ur Specific [place] >= 1.030 H Urine Protein Negative Urine Glucose (UA) Negative Urine Ketones Negative Urine Blood Negative Urine Nitrite Negative Ur Leukocyte Esterase Negative 09/26/23 07:45 WBC RBC Hgb Hct MCV MCH MCHC RDW Plt Count MPV Immature Gran % (Auto) Neut % (Auto) Lymph % (Auto) [place] % (Auto) Eos % (Auto) Baso % (Auto) Lymph # (Auto) [place] # (Auto) Eos # (Auto) Baso # (Auto) Abs Immat Gran (auto) Absolute Neuts (auto) Absolute Nucleated RBC Nucleated RBC % (auto) Sodium Potassium Chloride Carbon Dioxide Anion Gap BUN Creatinine Estim Creat Clear Calc Estimated GFR POC Glucose 134 H Random Glucose Lactic Acid Calcium Urine Color Urine Appearance Urine pH Ur Specific [place] Urine Protein Urine Glucose (UA) Urine Ketones Urine Blood Urine Nitrite Ur Leukocyte Esterase Discharge Plan Discharge Anticipated Discharge Date/Time: 09/26/23 12:38 Patient Disposition: Home, Self-Care Discharge Diagnosis: orthostatic hypotension Referrals: Physician,Unknown J [Primary Care Provider] - 1 Week Discharge Medications: Continued (DME) blood pressure monitor Kit See Rx Instructions .Route Qty: 1 0RF Rx Instructions: As directed albuterol sulfate [Ventolin HFA] 90 mcg/actuation HFA aerosol inhaler 1 puff inhalation Q6H PRN (Reason: wheezing) Qty: 1 0RF atorvastatin 40 mg tablet 40 mg PO BEDTIME Qty: 30 5RF aspirin 81 mg tablet,delayed release (DR/EC) 81 mg PO DAILY 90 Days Qty: 90 0RF Spiriva Respimat 1.25 mcg/actuation mist 2 puff inhalation QAM Qty: 4 0RF Advair HFA 45-21 mcg/actuation HFA aerosol inhaler 2 puff PO BID Qty: 12 0RF (DME) FreeStyle Lite Strips Strip MISCELLANEOUS TID fluticasone propionate 50 mcg/actuation spray,suspension 2 spray intranasal DAILY PRN (Reason: Congestion) omeprazole 20 mg capsule,delayed release(DR/EC) 20 mg PO BID loratadine 10 mg tablet 10 mg PO DAILY metformin 1,000 mg tablet 1,000 mg PO BID magnesium oxide 400 mg (241.3 mg magnesium) tablet 400 mg PO DAILY doxycycline monohydrate 100 mg capsule 100 mg PO BID aripiprazole 5 mg tablet 5 mg PO DAILY Lactobacillus acidophilus 500 million cell capsule 500,000,000 cell PO DAILY nystatin 100,000 unit/gram powder 1 appl topical BID clindamycin phosphate 1 % lotion 1 appl topical BID gabapentin 300 mg capsule 300 mg PO BID duloxetine 30 mg capsule,delayed release(DR/EC) 30 mg PO BID bupropion HCl 150 mg tablet extended release 24 hr 150 mg PO BID buspirone 10 mg tablet 10 mg PO BID melatonin 5 mg tablet 10 mg PO BEDTIME Humira(CF) Pen 80 mg/0.8 mL pen injector kit 80 mg subcut Q14D Discharge Orders: Discharge Order (Routine); Ordered 09/26/23 Ordered By: Rehan Felipe Diet: Advance to usual diet Activity on Discharge: As tolerated Stand Alone Forms: Patient Portal Discharge page Print Language: [place] Care Plan Goals: avoid hypotension Health Concerns: orthostatic hypotension Plan of Treatment: stay hydrated Assessment: see above
[2023-09-26 13:05] LABS: Glucose, Whole Blood 128 mg/dL (60-115)
--- NOTE | 2023-09-26 13:05 | P.CONCA_ITS ---
History of Present Illness History of Present Illness Date of Service: 09/26/23 Chief complaint: Orthostatic presyncope Narrative: 53-year-old female with background history of coronary disease with LAD and RCA PCI who presented to Cardiology Clinic for follow-up and was noticed to be significantly hypotensive and orthostatic and center in history department. In the ER she had fluid resuscitation and was given midodrine 1 dose. Blood pressure has improved since then and her orthostatics are negative. She is saying that she has been experiencing low blood pressures and orthostasis for long time. She had uncontrolled diabetes but recently started taking over diabetes better and she will control is improving. She would 1 episode of chest tightness at rest lasting for short period time but did not have any symptoms preceding or after that. Biomarkers and EKG is unchanged. [facility] Past Medical History Medical History Diabetic Charcot's foot Cataract of both eyes Supplemental oxygen dependent COVID-19 Asthma Cholecystectomy planned Hernia of abdominal wall delivery delivered Depression High cholesterol Tachycardia Diabetes Family History Family History Father No problems noted. Mother No problems noted. Sister H/O heart artery stent Surgical History Surgical History History of cataract surgery History of excision of pilonidal cyst Hx of oophorectomy Hx of umbilical hernia repair Hx of colonoscopy Hx of cholecystectomy Hx of section Hx of cardiac catheterization History of esophagogastroduodenoscopy (EGD) H/O foot surgery Social History Social History Household Members: Other Household Members Other:: sister Housing: House Housing Other:: stays in hotel waiting for housing Are you a primary special needs child caregiver to a significant other at home: No Do you presently have visiting nurse or other home services: Yes ([employer] 16 hours/week) Alcohol intake: never Patient Tobacco Use Status: Former Tobacco user Quit Date: 2013 Tobacco use type: Cigarette Second Hand Smoke Exposure: No Substance Use Type: Marijuana Advance Directives: No Advance Directives Information Provided: Yes Nutrition Risks: No Nutritional Risk service: No Current occupational status: disabled Meds Allergies Allergy/AdvReac Type Severity Reaction Status Date / Time adhesive tape [ADHESIVE TAPE] Allergy Intermediate BLISTERS Verified 09/25/23 09:54 tramadol [TRAMADOL] Allergy Intermediate NAUSEA & Verified 09/25/23 09:54 VOMITING oxycodone [OXYCODONE] AdvReac Intermediate ITCHING Verified 09/25/23 09:54 Active Medications: Current Medications Acetaminophen (Acetaminophen 325 Mg Tablet) 650 mg PO Q6H PRN PRN Reason: Pain, Mild (Pain Scale 1-3) Last Admin: 09/25/23 23:09 Dose: 650 mg Albuterol Sulfate (Albuterol Sulfate 90 Mcg 8 Gm Inhaler) 1 puff INHALE Q6H PRN PRN Reason: wheezing Albuterol/Ipratropium (Albuterol/Iprat 2.5/0.5mg 3 Ml Ampul.Neb) 3 ml INHALE Q4H PRN PRN Reason: Wheezing Aripiprazole (Aripiprazole 5 Mg Tablet) 5 mg PO DAILY [facility] Last Admin: 09/26/23 09:06 Dose: 5 mg Aspirin (Aspirin Enteric Coated 81 Mg Tablet.) 81 mg PO DAILY [facility] Last Admin: 09/26/23 09:07 Dose: 81 mg Atorvastatin Calcium (Atorvastatin Calcium 40 Mg Tablet) 40 mg PO BEDTIME [facility] Bupropion HCl (Bupropion Hcl Xl 150 Mg Tab.Er.24h) 150 mg PO BID [facility] Last Admin: 09/26/23 09:06 Dose: 150 mg Buspirone HCl (Buspirone Hcl 10 Mg Tablet) 10 mg PO BID [facility] Last Admin: 09/26/23 09:07 Dose: 10 mg Doxycycline Monohydrate (Doxycycline Monohydrate 100 Mg Capsule) 100 mg PO BID [facility] Last Admin: 09/26/23 09:06 Dose: 100 mg Duloxetine HCl (Duloxetine Hcl 30 Mg Capsule.) 30 mg PO BID [facility] Last Admin: 09/26/23 10:41 Dose: 30 mg Enoxaparin Sodium (Enoxaparin Sodium 40 Mg/0.4 Ml Syringe) 40 mg SUBCUT Q24H [facility] Last Admin: 09/25/23 23:09 Dose: 40 mg Fluticasone/Vilanterol (Fluticasone/Vilanterol 100/25 Blst.W.Dev) 1 puff INHALE RDAILY [facility] Last Admin: 09/26/23 11:02 Dose: 1 puff Gabapentin (Gabapentin 300 Mg Capsule) 300 mg PO BID [facility] Last Admin: 09/26/23 09:07 Dose: 300 mg Glucose (Glucose Gel 15 Gm Gel..Gram.) 15 gm PO Q15M PRN; Protocol PRN Reason: per Hypoglycemia Standing Ord. Hydrocortisone (Hydrocortisone 1 % Cream 28.35 Gm Tube) 1 appl TOPICAL BID PRN; Protocol PRN Reason: pruritis Last Admin: 09/26/23 11:25 Dose: 1 appl Dextrose (D10) 250 mls @ 750 mls/hr IV Q15M PRN; Protocol PRN Reason: per Hypoglycemia Standing Ord. Insulin Human Lispro (Insulin Lispro 100 Unit/Ml 3 Ml Vial) 0 unit SUBCUT QIDACHS [facility]; Protocol Last Admin: 09/26/23 07:53 Dose: Not Given Loratadine (Loratadine 10 Mg Tablet) 10 mg PO DAILY [facility] Last Admin: 09/26/23 09:06 Dose: 10 mg Magnesium Oxide (Magnesium Oxide 400 Mg Tablet) 400 mg PO DAILY [facility] Last Admin: 09/26/23 09:06 Dose: 400 mg Melatonin (Melatonin 3 Mg Tablet) 6 mg PO BEDTIME PRN PRN Reason: Insomnia Omeprazole (Omeprazole 20 Mg Capsule.Dr) 20 mg PO BID [facility] Last Admin: 09/26/23 09:06 Dose: 20 mg Ondansetron HCl (Ondansetron Hcl 4 Mg/2 Ml Vial) 4 mg IVPUSH Q8H PRN PRN Reason: Nausea and Vomiting Sodium Chloride (0.9 % Sodium Chloride Flush 3 Ml Syringe) 3 ml IVFLUSH QSHIFT [facility] Last Admin: 09/26/23 09:07 Dose: 3 ml Home Medications ?Medication ?Instructions ?Recorded ?Confirmed ?Last Taken ?Type blood sugar diagnostic (FreeStyle 11/17/20 09/25/23 Unknown History Lite Strips) fluticasone propionate 50 2 spray intranasal DAILY PRN 11/17/20 09/25/23 Unknown History mcg/actuation nasal Congestion spray,suspension bupropion HCl 150 mg 24 hr tablet, 150 mg PO BID 08/15/21 09/25/23 09/25/23 History extended release duloxetine 30 mg capsule,delayed 30 mg PO BID 08/15/21 09/25/23 09/25/23 History release gabapentin 300 mg capsule 300 mg PO BID 08/15/21 09/25/23 09/25/23 History buspirone 10 mg tablet 10 mg PO BID 10/22/21 09/25/23 09/25/23 History omeprazole 20 mg capsule,delayed 20 mg PO BID 10/22/21 09/25/23 09/25/23 History release loratadine 10 mg tablet 10 mg PO DAILY 06/03/22 09/25/23 09/25/23 History melatonin 5 mg tablet 10 mg PO BEDTIME 06/03/22 09/25/23 09/24/23 History metformin 1,000 mg tablet 1,000 mg PO BID 06/03/22 09/25/23 09/25/23 History Lactobacillus acidophilus 500 500,000,000 cell PO DAILY 09/25/23 09/25/23 09/25/23 History million cell capsule adalimumab 80 mg/0.8 mL 80 mg subcut Q14D 09/25/23 09/25/23 Unknown History subcutaneous pen kit (Humira(CF) Pen) aripiprazole 5 mg tablet 5 mg PO DAILY 09/25/23 09/25/23 09/25/23 History clindamycin phosphate 1 % lotion 1 appl topical BID 09/25/23 09/25/23 Unknown History doxycycline monohydrate 100 mg 100 mg PO BID 09/25/23 09/25/23 09/25/23 History capsule magnesium oxide 400 mg (241.3 mg 400 mg PO DAILY 09/25/23 09/25/23 09/25/23 History magnesium) tablet nystatin 100,000 unit/gram topical 1 appl topical BID 09/25/23 09/25/23 Unknown History powder Physical Exam 2 Vital Signs: Vital Signs: Last Vital Signs Temp 98.2 F 09/26/23 08:04 Pulse 99 09/26/23 11:02 Resp 18 09/26/23 11:02 BP 133/95 H 09/26/23 09:10 Pulse Ox 99 09/26/23 09:10 O2 Del Method Room Air 09/26/23 09:10 BMI result Body Mass Index 35.7 GENERAL APPEARANCE: in no acute distress, pleasant. NECK: no carotid bruit, no jugular venous distention. SKIN: no suspicious lesions, warm and dry. HEART: no murmurs, regular rate and rhythm. LUNGS: clear to auscultation bilaterally. ABDOMEN: soft, nontender. EXTREMITIES: no edema. PERIPHERAL PULSES: equal. NEUROLOGIC: No gross deficits, AAO X 3 Objective Labs and Meds 09/26/23 04:50 09/26/23 04:50 Lab results: Laboratory Results - last 24 hr 09/25/23 09/25/23 09/26/23 15:41 21:05 04:50 WBC 8.1 RBC 3.90 L Hgb 12.2 Hct 36.0 L D MCV 92.3 MCH 31.3 MCHC 33.9 RDW 13.2 Plt Count 160 D MPV 9.3 L Immature Gran % (Auto) 0.1 Neut % (Auto) 46.0 Lymph % (Auto) 46.8 H [place] % (Auto) 4.8 Eos % (Auto) 1.9 Baso % (Auto) 0.4 Lymph # (Auto) 3.8 [place] # (Auto) 0.4 Eos # (Auto) 0.2 Baso # (Auto) 0.0 Abs Immat Gran (auto) 0.01 Absolute Neuts (auto) 3.7 Absolute Nucleated RBC 0.000 Nucleated RBC % (auto) 0.0 Sodium 141 Potassium 4.4 Chloride 107 Carbon Dioxide 26 Anion Gap 12 BUN 22 H Creatinine 0.72 Estim Creat Clear Calc 98.3 Estimated GFR > 60 POC Glucose Random Glucose 94 Lactic Acid 1.7 Calcium 8.8 Urine Color Yellow Urine Appearance Clear Urine pH 5.0 Ur Specific [place] >= 1.030 H Urine Protein Negative Urine Glucose (UA) Negative Urine Ketones Negative Urine Blood Negative Urine Nitrite Negative Ur Leukocyte Esterase Negative 09/26/23 07:45 WBC RBC Hgb Hct MCV MCH MCHC RDW Plt Count MPV Immature Gran % (Auto) Neut % (Auto) Lymph % (Auto) [place] % (Auto) Eos % (Auto) Baso % (Auto) Lymph # (Auto) [place] # (Auto) Eos # (Auto) Baso # (Auto) Abs Immat Gran (auto) Absolute Neuts (auto) Absolute Nucleated RBC Nucleated RBC % (auto) Sodium Potassium Chloride Carbon Dioxide Anion Gap BUN Creatinine Estim Creat Clear Calc Estimated GFR POC Glucose 134 H Random Glucose Lactic Acid Calcium Urine Color Urine Appearance Urine pH Ur Specific [place] Urine Protein Urine Glucose (UA) Urine Ketones Urine Blood Urine Nitrite Ur Leukocyte Esterase Imaging Radiologist's impression: Impressions Abdomen/Pelvis CT 09/25/23 13:22 IMPRESSION: No acute findings. Upper normal size liver with prominent left lobe and caudate lobe. ? Early cirrhotic change. Fleischner guidelines were followed. Cervical Spine CT 09/25/23 13:22 IMPRESSION: Unremarkable exam. Fleischner guidelines were followed. Chest CTA 09/25/23 13:22 IMPRESSION: No evidence of pulmonary embolism. Enlarged heart. Diffuse interstitial and airspace disease. Differential would include pulmonary edema and pneumonia. Clinical correlation recommended. VTE: negative Head CT 09/25/23 13:22 IMPRESSION: Unremarkable exam. Assessment and Plan (1) Orthostatic hypotension: Status: Acute Plan [age] year female with significant orthostatic hypotension on background of diabetes. She has known coronary disease but currently presentation is not ACS. She has been fluid resuscitated and has improved. She still has some orthostasis but overall blood pressures are high and she has not symptomatic. Doubt that she will tolerate midodrine because her blood pressure at rest are high and may get significantly elevated if she gets midodrine. Encouraged her to drink more water and hydrate herself better. CT scan is raising concern for heart failure versus atypical pneumonia. Clinically she has not in heart failure or acting like pneumonia. She has been on chronic doxycycline which is treatment for atypical organisms like Legionella and mycoplasma unless these changes are due to viral illness. Ambulate in the hallways and if stable can return home. Thank you for allowing me to participate in the care of your patient. Please feel free to contact me if you have any questions. Procedures Date of Service Date of Service: 09/26/23
--- NOTE | 2023-09-26 15:11 | MHC.CM.PN ---
Pt was discharged home self-care, pt was discharged prior to being seen by CM.
== END 2023-09-26 13:35 | disposition home or self-care (01) ==
LOC: HO.ED 15:16 → HO.EDOVER 20:52 → HO.IMC 09-26 12:20
PROVIDERS: Physician Assistant; Admitting Provider Student in an Organized Health Care Education/Training Program; Emergency Provider Emergency Medicine Emergency Medical Services; Visit Provider Internal Medicine
DX: I95.1 Orthostatic hypotension (principal); E11.8 Type 2 diabetes mellitus with unspecified complications; J18.9 Pneumonia, unspecified organism; I25.10 Atherosclerotic heart disease of native coronary artery without angina pectoris; I11.0 Hypertensive heart disease with heart failure; I50.30 Unspecified diastolic (congestive) heart failure; J44.9 Chronic obstructive pulmonary disease, unspecified; E78.5 Hyperlipidemia, unspecified; L73.2 Hidradenitis suppurativa; Z95.5 Presence of coronary angioplasty implant and graft; Z79.899 Other long term (current) drug therapy; E66.9 Obesity, unspecified; Z68.35 Body mass index [BMI] 35.0-35.9, adult
CPT/HCPCS: 36415; 70450; 71275; 72125; 74177; 80048; 80053; 81003; 82947; 83605; 83735; 83880; 84443; 84484; 85025; 85610; 87040; 93005; 94640; 96361; 96365; 96366; 96367; 96372; 97162; 99212; 99222; 99285; J0456; J0696; J1650; Q9967

== ENCOUNTER → 2023-09-25 20:33 | Outpatient (BNV) | payer OTHER, SELFPAY | PROVIDERS: Admitting Provider Student in an Organized Health Care Education/Training Program; Emergency Provider Emergency Medicine Emergency Medical Services; Visit Provider Student in an Organized Health Care Education/Training Program | DX: I95.1 Orthostatic hypotension (principal) | CPT/HCPCS: 99222; 99239 ==

== ENCOUNTER → 2023-09-25 20:33 | Outpatient (BNV) | payer OTHER, SELFPAY | PROVIDERS: Admitting Provider Student in an Organized Health Care Education/Training Program; Emergency Provider Emergency Medicine Emergency Medical Services; Visit Provider Internal Medicine Cardiovascular Disease | DX: I95.1 Orthostatic hypotension (principal) | CPT/HCPCS: 99222 ==

== ENCOUNTER → 2023-11-06 23:59 | Outpatient (BNV) | payer OTHER, SELFPAY | PROVIDERS: Visit Provider Internal Medicine Cardiovascular Disease | DX: I21.4 Non-ST elevation (NSTEMI) myocardial infarction (principal) | CPT/HCPCS: 93458; 99152 ==

== ENCOUNTER 2023-12-08 10:03 | Outpatient (AMB) | payer OTHER, SELFPAY ==
[2023-12-08 10:06] VITALS: BP 100/62; PULSE 108; BMI 35.7
--- NOTE | 2023-12-08 10:06 | A.OFFVIS_ITS ---
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 [employer] Required: No Allergies adhesive tape [ADHESIVE TAPE] Allergy (Intermediate, Verified 12/08/23 10:09) BLISTERS tramadol [TRAMADOL] Allergy (Intermediate, Verified 12/08/23 10:09) NAUSEA & VOMITING oxycodone [OXYCODONE] Adverse Reaction (Intermediate, Verified 12/08/23 10:09) ITCHING Medication List - Last Reconciled 12/08/23 by ATIF Jackson adalimumab (Humira(CF) Pen) 80 mg subcut Q14D Advair HFA 45-21 mcg/actuation (fluticasone propion-salmeterol) 2 puffs PO BID NS albuterol sulfate 90 mcg/actuation (Ventolin HFA) 1 puff inhalation Q6H PRN aripiprazole 5 mg PO DAILY aspirin 81 mg PO DAILY 90 days atorvastatin 40 mg PO BEDTIME blood pressure monitor As directed blood sugar diagnostic (FreeStyle Lite Strips) bupropion HCl XL 150 mg PO BID buspirone 10 mg PO BID clindamycin phosphate 1% 1 appl topical BID doxycycline monohydrate 100 mg PO BID duloxetine 30 mg PO BID fluticasone propionate 50 mcg/actuation 2 sprays intranasal DAILY PRN gabapentin 300 mg PO BID Lactobacillus acidophilus 500,000,000 cells PO DAILY loratadine 10 mg PO DAILY magnesium oxide 400 mg PO DAILY melatonin 10 mg PO BEDTIME metformin 1,000 mg PO BID nystatin 1 appl topical BID omeprazole 20 mg PO BID Spiriva Respimat 1.25 mcg/actuation (tiotropium bromide) 2 puffs inhalation QAM NS HPI HPI Follow up from ER, Blood pressure: Details: Carol is a 53-year-old female with past medical history of obesity, diabetes, hyperlipidemia, smoking, COPD, CAD with LAD and RCA stents, orthostatic hypotension, recent chest discomfort followed by cardiac catheterization showing patent stents who now presents for follow-up. Today she reports that she continues to have issues with orthostatic hypotension. When she is upright she becomes diaphoretic, nauseous and lightheaded. She is only able to stay upright for a few minutes before needing to sit. She now uses a wheelchair much of the time. She has not had any full syncope or falls since her last visit. On last visit she was sent to the emergency room for this problem and was given IV fluid with some improvement. She was trialed on midodrine but she states that made her blood pressure go too high. Since then she has been managing her symptom with increased fluid intake, using caution with sitting to standing, increase salt intake and compression stockings. She does require assistance with activities in and outside the home. She has not had any recurrent chest discomfort. She has no shortness of tracy ath, PND, edema. She sleeps with 3-4 pillows for comfort which is not new. Our records confirm a weight loss of approximately 30 lb in the last year and a half. Patient reports her weight loss as being 80 lb. She is not on any antihypertensive agents. She has had falls in the past which are related to her weak ankles, not recent. She has braces on each ankle for support. Taking meds as directed. Family member/[employer] present. [facility] Medical History Diabetic Charcot's foot Cataract of both eyes Supplemental oxygen dependent COVID-19 Asthma Cholecystectomy planned Hernia of abdominal wall delivery delivered Depression High cholesterol Tachycardia Diabetes Surgical History History of cataract surgery History of excision of pilonidal cyst Hx of oophorectomy Hx of umbilical hernia repair Hx of colonoscopy Hx of cholecystectomy Hx of section Hx of cardiac catheterization History of esophagogastroduodenoscopy (EGD) H/O foot surgery Family History Father No problems noted. Mother Lung cancer Sister H/O heart artery stent Social History Household Members: Other Household Members Other:: sister Housing: House Housing Other:: stays in hotel waiting for housing Are you a primary daycare worker to a significant other at home: No Do you presently have visiting nurse or other home services: Yes ([employer] 16 hours/week) Alcohol intake: never Patient Tobacco Use Status: Former Tobacco user Tobacco use type: Cigarette Second Hand Smoke Exposure: No Substance Use Type: Marijuana service: No Current occupational status: disabled Review of Systems Const All systems reviewed & are unremarkable except as noted in HPI and below ENT Details: clammy and nauseous when upright Reports dizziness Card Denies chest pain, Denies chest pain at rest, Denies chest pain with activity, Denies rapid heart rate, Denies pedal edema, Denies edema, Denies leg edema, Denies lightheadedness, Denies palpitations, Denies dyspnea, Denies dyspnea on exertion and Denies orthopnea Resp Denies cough, Denies dyspnea and Denies dyspnea on exertion GI Denies hematochezia and Denies change in stool character Musc Denies abnormal gait, Denies limited range of motion, Denies muscle cramps, Denies muscle weakness, Denies numbness, Denies radiating pain into limb, Denies stiffness and Denies tingling Neuro Denies abnormal gait, Reports dizziness, Denies numbness and Denies tingling Endo Denies palpitations Physical Exam Vital Signs: Last Vital Signs Pulse 108 H 12/08/23 10:06 BP 100/62 12/08/23 10:06 BMI result Body Mass Index 35.7 Const Other: sitting in wheelchair General: cooperative, healthy appearing, comfortable and no acute distress Orientation/consciousness: patient oriented x3 Neck Neck: Yes normal visual inspection and Yes no JVD Resp Effort & Inspection: normal respiratory effort Auscultation: clear to auscultation bilaterally, no crackles, no rales, no rhonchi and no wheezes Cardio Jugular venous distension: no JVD Rate: regular rate Rhythm: regular rhythm Heart sounds: S1 normal heart sound present, S2 normal heart sound present, no murmurs and no rubs Neuro General: patient oriented x3 Extrem General: Yes normal to inspection and No no pedal edema Psych Appearance: grossly normal Mental Status: mental status grossly normal Speech and movement: Normal speech and movement present Assessment & Plan Assessment & Plan (1) Orthostatic hypotension: Code(s): I95.1 - Orthostatic hypotension Category: Medical Plan: Newer finding of orthostatic hypotension beginning spring 2023. She reports a significant amount of weight loss in the last year and diabetes has not been well controlled. She was admitted to [facility] in September for this problem and treated with IV fluids. Midodrine was tried at that time and she developed hypertension so it was not continued. She has been managing her symptoms with increased fluid and salt intake, compression stockings and standing for only short periods of time. Today she is in a wheelchair. Last echo done 05/06/2021 showed normal EF, mild LVH, impaired relaxation, normal valves, normal RV with mildly elevated right atrial pressures. EKG done last visit showed sinus tachycardia, rate 103. She is on Abilify and duloxetine each of which can cause orthostatic hypotension. She denies any recent changes to these medications. She has a history of uncontrolled diabetes and is likely developing some autonomic dysfunction. Her weight loss may also be contributing to this factor. She also is having issues with diarrhea which she relates to the metformin she is on. T his can be causing dehydration. Recommended use of Imodium. She does have a GI consultation next month. She is orthostatic on exam today when checked by me. Blood pressure sitting 118/62. Blood pressure standing for 1 minute 80/42 with mild clamminess to her skin. At this time will have her continue with conservative measures as she has been doing. Recommend stop, reduce Abilify and duloxetine. Recommend Imodium. Will check with her primary adjunct spanish instructor regarding any further testing or treatment. Cardiology office visit in 3 months, sooner if needed. (2) Lightheadedness: Code(s): R42 - Dizziness and giddiness Category: Medical Plan: As above (3) Atherosclerotic cardiovascular disease: Code(s): I25.10 - Atherosclerotic heart disease of [place] coronary artery without angina pectoris Category: Medical Plan: History of stents to the LAD and RCA 10/11/2021. Recent [facility] admission for chest discomfort and ruled in for NSTEMI. She was taken for cardiac catheterization showing patent stents. She was managed medically. She denies any recurrent chest discomfort. She continues on aspirin and atorvastatin. Labs done 06/03/2022 showed LDL 55. She has no reports of anginal sounding symptoms. With her orthostatic hypotension she will not be a good candidate for cardiac rehab. Updated fasting lipid profile should be obtained in the near future. (4) Status post cardiac catheterization: Comment: 10/11/2021, mid LAD proximal section 99% stenosis, angioplasty and LLOYD placed, proximal RCA distal section 95% stenosis, angioplasty in 2 LLOYD placed, mid RCA LLOYD placed. Cardiac catheterization 11/06/2023 showing lad diffuse distal disease, stent to the mid LAD patent, left circumflex mild luminal irregularities, RCA stents in the proximal and mid vessel are patent Code(s): Z98.890 - Other specified postprocedural states Category: Surgical Plan: As above (5) Chronic heart failure with preserved ejection fraction (HFpEF): Code(s): I50.32 - Chronic diastolic (congestive) heart failure Category: Medical Plan: History of heart failure with preserved EF. She does not appear fluid overloaded on examination. She is experiencing orthostatic hypotension. (6) Tachycardia: Code(s): R00.0 - Tachycardia, unspecified Category: Medical Plan: Mild Sinus tachycardia today appears to be compensatory to low blood pressure readings. (7) Hospital discharge follow-up: Code(s): Z09 - Encounter for follow-up examination after completed treatment for conditions other than malignant neoplasm Category: Medical Plan: [facility] discharge Plan Time spent on chart review, documentation, interview assess Coding Level of Care Code Est Pt Level 4 (99986) Diagnoses Orthostatic hypotension I95.1 Lightheadedness R42 Atherosclerotic cardiovascular disease I25.10 Status post cardiac catheterization Z98.890 Chronic heart failure with preserved ejection fraction (HFpEF) I50.32 Tachycardia R00.0 Hospital discharge follow-up Z09 Time Spent (min) 30
== END 2023-12-08 11:00 | disposition home or self-care (01) ==
PROVIDERS: Visit Provider Nurse Practitioner Family
DX: I95.1 Orthostatic hypotension (principal); R42 Dizziness and giddiness; I25.10 Atherosclerotic heart disease of native coronary artery without angina pectoris; Z98.890 Other specified postprocedural states; I50.32 Chronic diastolic (congestive) heart failure; R00.0 Tachycardia, unspecified; Z09 Encounter for follow-up examination after completed treatment for conditions other than malignant neoplasm
CPT/HCPCS: 99214

== ENCOUNTER → 2023-12-08 10:03 | Outpatient (BNVA) | payer OTHER, SELFPAY | PROVIDERS: Visit Provider Nurse Practitioner Family | DX: Z09 Encounter for follow-up examination after completed treatment for conditions other than malignant neoplasm (principal); I25.10 Atherosclerotic heart disease of native coronary artery without angina pectoris; I10 Essential (primary) hypertension; I95.1 Orthostatic hypotension; I50.32 Chronic diastolic (congestive) heart failure; R00.0 Tachycardia, unspecified; R42 Dizziness and giddiness; Z98.890 Other specified postprocedural states | CPT/HCPCS: 99212 ==

== ENCOUNTER 2024-03-16 10:11 | Outpatient (AMB) | payer OTHER, SELFPAY ==
[2024-03-16 10:13] VITALS: BP 120/60; PULSE 101; BMI 35.6
--- NOTE | 2024-03-16 10:13 | MHC.OFFVIS ---
Vital Signs 03/16/24 10:13 Height 5 ft 4 in Weight 207 lb 3.752 oz BMI 35.6 BP 120/60 Blood Pressure Location Lt brachial Position Sitting Pulse 101 H Pulse Source Pulse Oximeter Intake Visit Reasons: r/s 03/03/24 3 mos followup Director Of Consumer Affairs Required: No Accompanied by: Self / Same As Patient Allergies adhesive tape [ADHESIVE TAPE] Allergy (Intermediate, Verified 12/08/23 10:09) BLISTERS tramadol [TRAMADOL] Allergy (Intermediate, Verified 12/08/23 10:09) NAUSEA & VOMITING oxycodone [OXYCODONE] Adverse Reaction (Intermediate, Verified 12/08/23 10:09) ITCHING Medication List - Last Reconciled 03/16/24 by Elio Thakkar MD adalimumab (Humira(CF) Pen) 80 mg subcut Q14D Advair HFA 45-21 mcg/actuation (fluticasone propion-salmeterol) 2 puffs PO BID NS albuterol sulfate 90 mcg/actuation (Ventolin HFA) 1 puff inhalation Q6H PRN aripiprazole 5 mg PO DAILY aspirin 81 mg PO DAILY 90 days atorvastatin 40 mg PO BEDTIME 90 days blood pressure monitor As directed blood sugar diagnostic (FreeStyle Lite Strips) bupropion HCl XL 150 mg PO BID buspirone 10 mg PO BID clindamycin phosphate 1% 1 appl topical BID duloxetine 30 mg PO BID fluticasone propionate 50 mcg/actuation 2 sprays intranasal DAILY PRN gabapentin 300 mg PO BID Lactobacillus acidophilus 500,000,000 cells PO DAILY loratadine 10 mg PO DAILY magnesium oxide 400 mg PO DAILY melatonin 10 mg PO BEDTIME metformin 1,000 mg PO BID nystatin 1 appl topical BID omeprazole 20 mg PO BID Spiriva Respimat 1.25 mcg/actuation (tiotropium bromide) 2 puffs inhalation QAM NS HPI Comments Details: Ciera returns for follow-up regarding coronary disease. Multiple medical comorbidities including diabetes on insulin, history of smoking, asthma/COPD. She had complained of chest pain and shortness of breath that led to cardiac workup. Eventually, had cardiac catheterization and stenting of LAD/RCA. More recently, she has had issues with orthostatic hypotension. Suspected could be because of weight loss. She states in the past she was as much as 300 lb but over time has lost close to 90+ lb. That might play a role in low blood pressure issues. Any case, she is generally feeling okay overall. No clear-cut symptoms like angina. [facility] Medical History Diabetic Charcot's foot Cataract of both eyes Supplemental oxygen dependent COVID-19 Asthma Cholecystectomy planned Hernia of abdominal wall delivery delivered Depression High cholesterol Tachycardia Diabetes Surgical History History of cataract surgery History of excision of pilonidal cyst Hx of oophorectomy Hx of umbilical hernia repair Hx of colonoscopy Hx of cholecystectomy Hx of section Hx of cardiac catheterization History of esophagogastroduodenoscopy (EGD) H/O foot surgery Family History Father No problems noted. 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) Alcohol intake: never Patient Tobacco Use Status: Former Tobacco user Tobacco use type: Cigarette Second Hand Smoke Exposure: No Substance Use Type: Marijuana service: No Current occupational status: disabled Review of Systems Const Denies chills, Denies fatigue, Denies fever(s), Denies frequent falls, Denies weakness, Denies weight gain and Denies weight loss ENT Denies dizziness Card Denies chest pain, Denies leg edema, Denies lightheadedness, Denies palpitations, Denies dyspnea and Denies dyspnea on exertion Resp Denies cough, Denies dyspnea and Denies dyspnea on exertion GI Denies hematochezia Musc Denies abnormal gait, Denies muscle weakness, Denies numbness, Denies radiating pain into limb and Denies tingling Neuro Denies abnormal gait, Denies dizziness, Denies frequent falls, Denies numbness, Denies tingling and Denies weakness Endo Denies fatigue and Denies palpitations Physical Exam Vital Signs: Last Vital Signs Pulse 101 H 03/16/24 10:13 BP 120/60 03/16/24 10:13 BMI result Body Mass Index 35.6 Const General: comfortable and no acute distress Orientation/consciousness: patient oriented x3 HEENT Other: Unremarkable Head: Yes normal to inspection Neck Neck: Yes normal visual inspection Chest Chest palpation & inspection: normal inspection of the chest Resp Auscultation: clear to auscultation bilaterally Cardio Palpation: normal PMI Heart sounds: S1 normal heart sound present, S2 normal heart sound present, no gallops, no murmurs and no rubs GI Palpation (GI): Soft to palpation Back/Spine/Pelvis Other: unremarkable Skin General skin exam: no rashes or lesions noted Neuro General: patient oriented x3 Extrem General: Yes normal to inspection Psych Mental Status: mental status grossly normal Assessment & Plan Assessment & Plan (1) Atherosclerotic cardiovascular disease: Code(s): I25.10 - Atherosclerotic heart disease of [place] coronary artery without angina pectoris Category: Medical Plan: Cardiac [id number] stents in the LAD and RCA. Mild diffuse disease in the mid to distal LAD. [id number] 50-55%. Basal inferior/inferoseptal hypokinesis. Mild aortic valve and mitral annular calcification. Continue aspirin and statins. Clinically, no angina. Liver enzymes are slightly abnormal the labs from September but that seems to have improved in subsequent labs from [facility]. Last LDL cholesterol from [facility] is 28 mg/dL. Triglycerides 79 mg/dL. (2) Orthostatic hypotension: Code(s): I95.1 - Orthostatic hypotension Category: Medical Plan: It seems she has tried midodrine in the past and that made her hypertensive. Seems stable at this time. To keep herself hydrated and probably not salt restrict. If she loses more weight, there is a chance of this worsening. Hence need to be cautious. Plan Total time spent including review of [facility] records, counseling, documentation, coordination of care-32 minutes. Discussed with sister. Orders: Orders CA echo transthoracic complete 6 Months I25.10 - Atherosclerotic heart disease of [place] coronary artery without angina pectoris Coding Level of Care Code Est Pt Level 4 (67444) Diagnoses Atherosclerotic cardiovascular disease I25.10 Orthostatic hypotension I95.1
== END 2024-03-16 10:42 | disposition home or self-care (01) ==
PROVIDERS: PCP Internal Medicine; Visit Provider Internal Medicine
DX: I25.10 Atherosclerotic heart disease of native coronary artery without angina pectoris (principal); I95.1 Orthostatic hypotension
CPT/HCPCS: 99214

== ENCOUNTER → 2024-03-16 10:11 | Outpatient (BNVA) | payer OTHER, SELFPAY | PROVIDERS: PCP Internal Medicine; Visit Provider Internal Medicine | DX: I25.10 Atherosclerotic heart disease of native coronary artery without angina pectoris (principal); I95.1 Orthostatic hypotension | CPT/HCPCS: 99212 ==

== ENCOUNTER 2024-03-31 09:07 | Outpatient (AMB) | payer OTHER, SELFPAY ==
[2024-03-31 09:12] VITALS: BP 122/64; PULSE 104; O2SAT 95; BMI 35.4
--- NOTE | 2024-03-31 09:12 | MHC.OFFVIS ---
Vital Signs 03/31/24 09:12 Height 5 ft 4 in Weight 206 lb 2.115 oz BMI 35.4 BP 122/64 Blood Pressure Location Rt brachial Position Sitting Pulse 104 H Pulse Source Doppler Pulse Oximetry (%) 95 Oxygen Delivery Method Room Air Intake Visit Reasons: Dyspnea Allergies adhesive tape [ADHESIVE TAPE] Allergy (Intermediate, Verified 03/31/24 09:17) BLISTERS tramadol [TRAMADOL] Allergy (Intermediate, Verified 03/31/24 09:17) NAUSEA & VOMITING oxycodone [OXYCODONE] Adverse Reaction (Intermediate, Verified 03/31/24 09:17) ITCHING HPI HPI Dyspnea: Details: 53-year-old lady, nonsmoker, with underlying history of obesity, asthma, and prior? COVID-19 infection, previously on supplemental O2 at 1.5 L, here for follow-up, now off supplemental oxygen.? She continues to use Spiriva, Advair, and albuterol MDI with good control of her underlying symptoms. Patient had recent exacerbation secondary to parainfluenza infection requiring hospitalization at [facility], fortunately she did recover back to her baseline. [facility] Medical History Diabetic Charcot's foot Cataract of both eyes Supplemental oxygen dependent COVID-19 Asthma Cholecystectomy planned Hernia of abdominal wall delivery delivered Depression High cholesterol Tachycardia Diabetes Surgical History History of cataract surgery History of excision of pilonidal cyst Hx of oophorectomy Hx of umbilical hernia repair Hx of colonoscopy Hx of cholecystectomy Hx of section Hx of cardiac catheterization History of esophagogastroduodenoscopy (EGD) H/O foot surgery Family History Father No problems noted. 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) Alcohol intake: never Patient Tobacco Use Status: Former Tobacco user Tobacco use type: Cigarette Second Hand Smoke Exposure: No Substance Use Type: Marijuana service: No Current occupational status: disabled Review of Systems Const Denies daytime sleepiness, Denies excessive sweating, Denies fatigue, Denies fever(s), Denies lethargy, Denies malaise, Denies night sweats, Denies snoring and Denies weight loss Eyes Denies blurry vision and Denies itchy eyes ENT Denies nasal congestion, Denies post nasal drip, Denies sinus pain, Denies sinus pressure and Denies other ( Thrush) Card Denies chest pain, Denies pedal edema, Denies dyspnea, Denies orthopnea and Denies paroxysmal nocturnal dyspnea Resp Denies cough, Denies hemoptysis, Denies excessive phlegm production, Denies dyspnea, Denies snoring and Denies wheezing GI Denies abdominal pain and Denies heartburn Musc Denies myalgias, Denies arthralgias and Denies joint swelling Skin/Breast Denies rash Neuro Denies memory loss and Denies seizure-like activity Psych Denies abnormal sleep pattern, Denies anxiety and Denies memory loss Endo Denies excessive sweating, Denies fatigue and Denies heat intolerance Behzad/Lymph Denies easy bruising Aller/Immun Denies itchy eyes, Denies seasonal rhinorrhea and Denies wheezing Physical Exam Vital Signs: Last Vital Signs Pulse 104 H 03/31/24 09:12 BP 122/64 03/31/24 09:12 Pulse Ox 95 03/31/24 09:12 Oxygen Delivery Method Room Air 03/31/24 09:12 BMI result Body Mass Index 35.4 Const General: no acute distress and alert Nutritional Appearance: not obese Orientation/consciousness: Other orientation findings ( oriented) HEENT Head: Yes atraumatic Eyes General: appearance normal, both eyes and all related structures Sclerae: sclerae normal EOM: EOMs intact bilaterally Neck Neck: Yes supple Lymphatic: no lymphadenopathy noted Resp Effort & Inspection: normal respiratory effort and no use of accessory muscles Auscultation: clear to auscultation bilaterally Cardio Rate: regular rate Rhythm: regular rhythm Heart sounds: no gallops, no murmurs and no rubs Skin General skin exam: other ( warm) Extrem General: No clubbing, No cyanosis and No edema Assessment & Plan Assessment & Plan (1) Asthma: Code(s): J45.909 - Unspecified asthma, uncomplicated Category: Medical Qualifiers: Asthma complication type: with acute exacerbation Asthma persistence: persistent Asthma severity: moderate Qualified Code(s): J45.41 - Moderate persistent asthma with (acute) exacerbation Plan: Well controlled on current regimen of Advair, Spiriva, and albuterol MDI. Continue current regimen. Coding Level of Care Code Est Pt Level 3 (62137) Diagnoses Asthma J45.41 Asthma complication type: with acute exacerbation Asthma persistence: persistent Asthma severity: moderate
== END 2024-03-31 09:30 | disposition home or self-care (01) ==
PROVIDERS: PCP Internal Medicine; Visit Provider Internal Medicine Pulmonary Disease
DX: J45.41 Moderate persistent asthma with (acute) exacerbation (principal)
CPT/HCPCS: 99213

== ENCOUNTER → 2024-03-31 09:07 | Outpatient (BNVA) | payer OTHER, SELFPAY | PROVIDERS: PCP Internal Medicine; Visit Provider Internal Medicine Pulmonary Disease | DX: J45.41 Moderate persistent asthma with (acute) exacerbation (principal); Z79.899 Other long term (current) drug therapy | CPT/HCPCS: 99212 ==

== ENCOUNTER 2024-06-20 10:16 | Outpatient (REF) | payer OTHER, SELFPAY ==
[2024-06-20 10:22] VITALS: BP 130/84; PULSE 102; RESP 16; TEMP 36.1; O2SAT 93
[2024-06-20 10:31] VITALS: BMI 34.5
== END 2024-06-20 10:17 | disposition home or self-care (01) ==
LOC: HO.MS 10:16
PROVIDERS: PCP Internal Medicine; Visit Provider Ophthalmology
PROC: (CPT 66821; principal; 2024-06-20 12:30)
DX: H26.492 Other secondary cataract, left eye (principal)
CPT/HCPCS: 66821

== ENCOUNTER → 2024-09-08 09:05 | Outpatient (REF) | payer OTHER, SELFPAY ==
--- NOTE | 2024-09-08 09:07 | CA_ITS ---
Transthoracic Echocardiogram Patient (Last, First, Middle): Ciera Haas, Gender: Female Date of : 1970 Age: 54 Procedure Date: 09/08/2024 Procedure Type: Transthoracic Echocardiogram Location: OP Height: 162.56 cm Weight: 93.44 kg BSA: 1.98 m2 Heart Rate: bpm BP: 120 / 60 mmHg Graphic Arts Technician: SB Referring MD: Elio Thakkar MD Transition Assistant: Reji Darby MD Symptoms: I25.10 - Atherosclerotic heart disease of [place] coronary artery without... Study Quality: Adequate ECG Rhythm: Sinus Conclusions: - 1. Normal LV ejection fraction of 65-70% with impaired relaxation filling pattern 2. Amlx-by-zuuruaor calcific aortic stenosis 3. Upper limits of normal ascending aortic size 4. Normal RV systolic pressure 5. No gross pericardial effusion Findings Left Ventricle Normal left ventricular size, thickness, and systolic function. The visually estimated ejection fraction is between 65-70%. Spectral Doppler is indicative of an impaired relaxation filling pattern. E/E prime ratio is between 8 and 15 consistent with indeterminate filling pressures. Wall Motion Rest Echo Findings The basal inferior and basal inferoseptal segments are hypokinetic. All other scored wall segments showed normal motion. Right Ventricle Normal right ventricular cavity size and systolic function. Atria Both atria are normal in size. There is no evidence of interatrial shunt. Aortic Valve There is mild calcification of the aortic valve. There is mild thickening of the aortic valve. There is mild to moderate aortic valve stenosis. The peak aortic gradient is 21 mmHg.The mean gradient is 11 mmHg. The aortic valve area is 1.35 cm2. There is no aortic valve regurgitation. Mitral Valve There is mild anterior mitral leaflet thickening. There is mild mitral annular calcification. There is trace mitral valve regurgitation. There is no mitral valve stenosis. Pulmonic Valve The pulmonic valve was not well visualized. Tricuspid Valve Likely normal tricuspid valve structure and function. There is mild tricuspid valve regurgitation. The right ventricular systolic pressure is normal. The right ventricular systolic pressure is 33 mmHg. Normal right atrial pressure. There is no evidence of pulmonary hypertension. Great Vessels The pulmonary artery was not well visualized. Small plaque is seen in the sino tubular ridge. Venous The inferior vena cava is normal in size and collapses greater than 50% with inspiration. Pericardium/Pleural There is no evidence of pericardial effusion. Prior Study Comparison Changes noted compared to prior study dated: 05/06/2021. [id number]-[id number]-[id number] aortic stenosis is present Measurements 2D Linear Measurements IVSd: 1.03 0.6-0.9/0.6-1.0 cm LVIDd: 4.77 3.9-5.3/4.2-5.9 cm LVIDd Index: 2.41 2.4-3.2/2.2-3.1 cm/m2 LVIDs: 2.90 2.0-3.6 cm LVPWd: 0.87 0.7-1.1 cm LA Diam: 3.30 2.7-3.8/3.0-4.0 cm LAIDs Index: 1.67 1.5-2.3 cm/m2 LV Mass: 196.02 67-162/88-224 g LV Mass Index: 99.00 43-95/49-115 g/m2 LVOT Diam: 2.00 3.0+(-)1.3 cm 2D Systolic Function EF 4C: 78.10 >55% EF 2C: 57.10 >55% EF BiP: 68.70 >55% Mitral Valve MV Pk E: 0.71 MV PK A: 0.85 MV Decel Time: 184.00 E/A: 0.80 E'Lateral: 6.64 E'Medial: 3.92 E/E' Med: 18.10 E/E' Lat: 10.70 PHT: 54.00 MVA PHT: 4.07 Decel [place]: 3.87 Aortic Valve AoV Pk Ronny: 2.28 AoV Mn Ronny: 1.58 AoV VTI: 0.44 AoV Pk Grad: 21.00 Aov Mn Grad: 11.00 MARYLOU Cont.VTI: 1.35 LVOT LVOT Pk Ronny: 0.86 LVOT Mn Ronny: 0.63 LVOT VTI: 0.19 LVOT Pk Grad: 3.00 LVOT Mn Grad: 2.00 LVOT Diam: 2.00 LVOT Area: 3.14 Diastolic Function MV Pk E: 0.71 MV Pk A: 0.85 E/A: 0.80 E'Medial: 3.92 E/E' Med: 18.10 E' Laterial: 6.64 E/E' Lat: 10.70 Right Ventricle TAPSE (mm): 14.80 TVS' Ronny: 9.46 Tricuspid Valve TR Pk Ronny: 2.73 TR Pk Grad: 30.00 RA Press: 3.00 RVSP: 33.00 Great Vessels Aorta Sinus of Valsalva: 3.10 2.0-3.5 cm Ao Asc: 3.50 2.1-3.4 cm Pulmonary Valve PV Pk Ronny: 0.81 Peak PV Grad: 3.00 Updated in Other Vendor System with Status of Final Reji Darby MD electronically signed on 09/09/2024 4:18:08 PM with status of Final
--- OUTSIDE RECORDS SUMMARY | 2024-09-08 10:24 | XMS_ITS | Encounter Summary ---
Author Organization [facility] Address [address] [place] [address] Care Team Providers Care Valet Attendant Name Role Phone Didi Conner MD Primary Care Provider [phone] Encounter Details Date Type Department Care Team Description 09/10/2021 SCAN [facility] [address] [address] Roel Pal DPM [address] [address] Social History Tobacco Use Types Packs/Day Years Used Date Smoking Tobacco: Former Cigarettes 2 30 Smokeless Tobacco: Never Comments:started @ age 14/ q uit @ age 44 Alcohol Use Standard Drinks/Week Comments No 0 (1 standard drink = 0.6 oz pur e alcohol) Sex Assigned at Date Recorded Not on file Job Start Date Occupation Industry Not on file Not on file Not on file COVID-19 Exposure Response Date Recorded In the last 10 days, have amina yi been in contact with someone who was confirmed or suspected to have Coronavirus/COVID-19? No / Unsure 09/02/2021 3:41 PM EDT documented as of this encounter Plan of Treatment Not on file documented as of this encounter Visit Diagnoses Not on filedocumented in this encounter Care Teams Valet Attendant Relationship Specialty Start Date End Date Didi Conner MD [address] [place] [id number] PCP - General Internal Medicine 08/16/21 documented as of this encounter
--- OUTSIDE RECORDS SUMMARY | 2024-09-08 10:24 | XMS_ITS | Encounter Summary ---
Author Organization [facility] Address [address] [place] [address] Care Team Providers Care Cad Manager Name Role Phone Didi Conner MD Primary Care Provider [phone] Encounter Details Date Type Department Care Team Description 09/10/2021 Hospital Medical Records [address] [place] [id number] Adi Quintana MD Social History Tobacco Use Types Packs/Day Years [...] Recorded In the last 10 days, have yo u been in contact with someone who was confirmed or suspected to have Coronavirus/COVID-19? No / Unsure 09/02/2021 3:41 PM EDT documented as of this encounter Plan of Treatment Not on file documented as of this encounter Visit Diagnoses Not on filedocumented in this encounter Care Teams Cad Manager Relationship Specialty Start Date End Date Didi Conner MD [address] [place] [phone] PCP - General Internal Medicine 08/16/21 documented as of this encounter
--- OUTSIDE RECORDS SUMMARY | 2024-09-08 10:24 | XMS_ITS | Encounter Summary ---
Author Organization [facility] Address [address] [place] [address] Care Team Providers Care Winding Rack Operator Name Role Phone Leti Ballesteros MD Primary Care Provider Unavail able Didi Conner MD Primary Care Provider Reason for Visit * Reason Onset Date Comments DME Request 10/18/2018 Encounter Details Date Type Department Care Team Description 10/18/2018 Telephone Adult Medicine [address] [address] Leti Ballesteros MD DME Request Social History Tobacco Use Types Packs/Day Years [...] on file documented as of this encounter Miscellaneous Notes * Telephone Encounter - Alexandra SchneiderPLucN. - 10/19/2018 1:28 PM EDT Walker was ordered by Norma Corral in Podiatry- [place] Request faxed to [facility] ( [phone]) * Telephone Encounter - Aishwarya Tesfaye - 10/18/2018 4:31 PM EDT Name of Product: Mobility Assistive Equipment Specific information about product Walker Fold Adult Dual # Needed 1 Reason patient is asking for this supply? Have you received this supply before? If yes , when?: no Have you discussed the need for this supply with a provider at a recent visit? NO If yes, with who and when? N/A When completed: Fax to other office/MD at fax # Milagros [facility] [phone] Have you told the patient it will take 7-10 days for completion of this request? NO documented in this encounter Plan of Treatment Not on file documented as of this encounter Visit Diagnoses Not on filedocumented in this encounter Care Teams Winding Rack Operator Relationship Specialty Start Date End Date Leti Ballesteros MD PCP - General Internal Medicine 04/28/18 08/15/21 Didi Conner MD [address] [place] [id number] PCP - General Internal Medicine 08/16/21 documented as of this encounter
--- OUTSIDE RECORDS SUMMARY | 2024-09-08 10:24 | XMS_ITS | Encounter Summary ---
Author Organization [facility] Address [address] [place] [address] Care Team Providers Care Head Banquet Waitress Name Role Phone Leti Ballesteros MD Primary Care Provider Unavail able Didi Conner MD Primary Care Provider Reason for Referral * EXTERNAL (Emergency) - Canceled Specialty Diagnoses / Procedures Referred By Contact Referred To Contact ORTHOPEDICS / Orthopedic Procedures REFERRAL TO ORTHOPEDICS (IN NETWORK) Leti Ballesteros MD [address] [place] [id number] Center, Occupational Care [address] [place] [id number] Referral ID Status Reason Start Date Expiration Date V isits Requested Visits Authorized SEE REVIEW 10/12/18 Canceled 10/12/2018 01/11/2019 1 1 Encounter Details Date Type Department Care Team Description 10/12/2018 Telephone Adult Medicine [address] [address] Leti Ballesteros MD Social History Tobacco Use Types Packs/Day [...] documented as of this encounter Visit Diagnoses Diagnosis Closed fracture of tarsal and metatarsal bones of right foot, initial encounter- Primary Closed displaced fracture of navicular bone of right foot, initial encounter documented in this encounter Care Teams Head Banquet Waitress Relationship Specialty Start Date End Date Leti Ballesteros MD PCP - General Internal Medicine 04/28/18 08/15/21 Didi Conner MD [address] [place] [phone] PCP - General Internal Medicine 08/16/21 documented as of this encounter
--- OUTSIDE RECORDS SUMMARY | 2024-09-08 10:24 | XMS_ITS | Encounter Summary ---
Author Organization [facility] Address [address] [place] [address] Care Team Providers Care Scale Manager Name Role Phone Didi Conner MD Primary Care Provider [phone] Encounter Details Date Type Department Care Team Description 09/19/2021 SCAN [facility] [address] [address] Roel Pal DPM [address] [address] Social History Tobacco Use Types Packs/Day Years [...] on filedocumented in this encounter Care Teams Scale Manager Relationship Specialty Start Date End Date Didi Conner MD [address] [place] [id number] PCP - General Internal Medicine 08/16/21 documented as of this encounter
--- OUTSIDE RECORDS SUMMARY | 2024-09-08 10:25 | XMS_ITS | Encounter Summary ---
Author Organization [facility] Address [address] [place] [address] Care Team Providers Care Engineer Automated Equipment Name Role Phone Leti Ballesteros MD Primary Care Provider Unavail able Didi Conner MD Primary Care Provider [phone] Encounter Details Date Type Department Care Team Description 11/17/2018 Transfer Records Medical Records [address] [place] [id number] Abstract, Provider Social History Tobacco Use Types Packs/Day Years [...] on filedocumented in this encounter Care Teams Engineer Automated Equipment Relationship Specialty Start Date End Date Leti Ballesteros MD PCP - General Internal Medicine 04/28/18 08/15/21 Didi Conner MD [address] [place] [id number] PCP - General Internal Medicine 08/16/21 documented as of this encounter
--- OUTSIDE RECORDS SUMMARY | 2024-09-08 10:25 | XMS_ITS | Encounter Summary ---
Author Organization [facility] Address [address] [place] [address] Care Team Providers Care Storage Architect Name Role Phone Leti Ballesteros MD Primary Care Provider Unavail able Didi Conner MD Primary Care Provider [phone] Encounter Details Date Type Department Care Team Description 11/12/2018 Hospital Medical Records [address] [place] [address] Darrell Corral, DPM Social History Tobacco Use Types Packs/Day Years [...] on filedocumented in this encounter Care Teams Storage Architect Relationship Specialty Start Date End Date Leti Ballesteros MD PCP - General Internal Medicine 04/28/18 08/15/21 Didi Conner MD [address] [place] [id number] PCP - General Internal Medicine 08/16/21 documented as of this encounter
--- OUTSIDE RECORDS SUMMARY | 2024-09-08 10:25 | XMS_ITS | Encounter Summary ---
Author Organization [facility] Address [address] [place] [address] Care Team Providers Care Distribution Superintendent Name Role Phone Leti Ballesteros MD Primary Care Provider Unavail able Didi Conner MD Primary Care Provider [phone] Encounter Details Date Type Department Care Team Description 11/11/2018 [facility] Medical Records [address] [place] [id number] Abstract, Provider Social History Tobacco Use Types [...] on filedocumented in this encounter Care Teams Distribution Superintendent Relationship Specialty Start Date End Date Leti Ballesteros MD PCP - General Internal Medicine 04/28/18 08/15/21 Didi Conner MD [address] [place] [id number] PCP - General Internal Medicine 08/16/21 documented as of this encounter
--- OUTSIDE RECORDS SUMMARY | 2024-09-08 10:25 | XMS_ITS | Encounter Summary ---
Author Organization [facility] Address [address] [place] [address] Care Team Providers Care Outpatient Scheduler Name Role Phone Leti Ballesteros MD Primary Care Provider Unavail able Didi Conner MD Primary Care Provider Encounter Details Date Type Department Care Team Description 11/12/2018 [facility] Medical Records [address] [place] [address] Darrell Corral, DPM Social History Tobacco Use [...] on filedocumented in this encounter Care Teams Outpatient Scheduler Relationship Specialty Start Date End Date Leti Ballesteros MD PCP - General Internal Medicine 04/28/18 08/15/21 Didi Conner MD [address] [place] [address] PCP - General Internal Medicine 08/16/21 documented as of this encounter
--- OUTSIDE RECORDS SUMMARY | 2024-09-08 10:25 | XMS_ITS | Encounter Summary ---
Author Organization [facility] Address [address] [place] [address] Care Team Providers Care Laborer Cement Gun Placing Name Role Phone Didi Conner MD Primary Care Provider Reason for Visit * Reason Comments E-prescribe Rx Request Encounter Details Date Type Department Care Team Description 09/19/2021 Refill Adult Medicine [address] [address] Leti Ballesteros MD E-prescribe Rx Request Social History Tobacco Use Types Packs/Day [...] PM EDT documented as of this encounter Miscellaneous Notes * Telephone Encounter - Meg Gale - 09/20/2021 8:47 AM EDT Patient would like script to be: E-PRESCRIBED/FAXED TO PHARMACY ?? WHEN WAS THE PATIENT'S LAST APPOINTMENT IN ADULT MEDICINE? 12/25/20 ?? WHEN WAS THE LAST TIME THE PATIENT SAW THEIR PCP? 05/17/18 ?? Does patient have an upcoming appointment? 09/23/21 ?? (THE MEDICATION REQUESTED IS ON THE MED LIST ABOVE) All of the medications requested were on the CURRENT MEDS list ?? Did you check the Pharmacy information above?: YES ?? Patient wants: 90 -day supply ?? Is this a mail order prescription request ? NO ?? If the refill is from a FAXED refill request what is the RX # listed on the fax? N/A ?? Patients current insurance carrier is: Payor: [employer] / Plan: [facility] / Product Type: HMO [id number] ?? documented in this encounter Plan of Treatment Not on file documented as of this encounter Visit Diagnoses Not on filedocumented in this encounter Care Teams Laborer Cement Gun Placing Relationship Specialty Start Date End Date Didi Conner MD [address] [place] [address] PCP - General Internal Medicine 08/16/21 documented as of this encounter
--- OUTSIDE RECORDS SUMMARY | 2024-09-08 10:26 | XMS_ITS | Encounter Summary ---
Author Organization [facility] [place] [address] Care Team Providers Care County Health Officer Name Role Phone Didi Conner MD Primary Care Provider [phone] Reason for Visit * Reason Onset Date Comments Medication 08/19/2024 Encounter Details Date Type Department Care Team ([facility] Contact Info) Description 08/19/2024 Telephone [facility] [address] [place] [address] Trini Montalvo PA [address] [place] [address] Medication Social History Tobacco Use Types Packs/Day Years Used Date Smoking Tobacco: Former Cigarettes 2 32 1 985 - 2016 Smokeless Tobacco: Never Comments:Started age 15; max 2 PPD; quit 2015 Alcohol Use Standard Drinks/Week Comments No 0 (1 standard drink = 0.6 oz pur e alcohol) Housing Instability Answer Date Recorde d Are you worried that in the next 2 months you may not have stable housing? Yes 04/29/2024 Food Access & Nutrition Answer Date Rec orded Do you have access to a vari ety of food including fruits and vegetables? Yes 04/29/2024 Access to Healthcare Answer Date Record ed Within the last 3 months, flip doan many times did you visit the emergency department for your medical care? 0 04/29/2024 Health Literacy Answer Date Recorded How often do you need to hav e someone help you when you read instructions, pamphlets, or other written material from your doctor or pharmacy? Always 04/29/2024 Caregiver: How often do you need to have someone help you when you read instructions, pamphlets, or other written material from your doctor or pharmacy? Not on file 04/29/2024 Financial Risk Answer Date Recorded How hard is it for you to pa y for the very basics like food, housing, medical care, and air conditioning / heating? Very hard 04/29/2024 Transportation Answer Date Recorded Has the lack of transportati on kept you from meetings, work, or from getting things needed for daily living? No Has the lack of transportati on kept you from medical appointments or from getting medications? No 04/29/2024 Social Isolation Answer Date Recorded How often do you feel lonely or isolated from th ose around you? Often 04/29/2024 Food Risk Answer Date Recorded Within the past 12 months we worried whether our food would run out before we got money to buy more. Sometimes true 024 Within the past 12 months th e food we bought just didn't last and we didn't have money to get more. Sometimes true 04/29/2024 Dependent Care Answer Date Recorded Do you need help finding or paying for care for your loved ones. For example, children's service worker or elderly care for an older adult? No 04/29/2024 Education Answer Date Recorded Do you think completing more education or training, like finishing a GED, going to college, or learning a trade, would be helpful for you? No 04/29/2024 Employment and Income Answer Date Recor ded During the last four weeks, have you been actively looking for work? No 04/29/2024 Living Situation Answer Date Recorded What is your living situation? 1 06/29/2023 Education Answer Date Recorded What is the highest level of school you have completed or the highest degree you have received? 12th grade 04/29/2024 Comments Unknown Sex and Gender Information Value Date Recorded Sex Assigned at Female 08/31/2024 10:04 AM EDT Legal Sex Female 4:08 PM EST Gender Identity Female 08/31/2024 10:04 AM EDT Sexual Orientation Straight 08/31/2024 10 :04 AM EDT Occupation Industry Job Start Date Job End Date Disabled - since 2009 - due to bipolar Not on file No t on file Not on file documented as of this encounter Progress Notes * Bel Parkinson RN - 08/19/2024 2:21 PM EST Advised that it is Metformin 1000 mg BID- script was sent to the [facility] on 06/23/24 120 tabsdispense with 11 RF. * Carrol Cervantes - 08/19/2024 12:19 PM EST Please call patient to go over her metformin directions. She says the pharmacy is decreasing her dose to 500mg twice a day and it should be 1000 mg twice a day. She is also being told that her transmitter is being discontinued. Please advise patient at [phone] documented in this encounter Plan of Treatment Upcoming Encounters Date Type Department Care Team (Late st Contact Info) Description 09/14/2024 8:30 AM EDT Office Visit Orthopedic Surgery - [place] [id number] [phone] Roel Pal, DPM [address] [address] 09/22/2024 11:00 AM EDT Appointment [facility] CT Scan [address] [place] [address] 10/05/2024 9:20 AM EDT Appointment Radiology Department - [address] [phone] 10/17/2024 3:30 PM EDT Appointment [facility] CT Scan [address] [place] [phone] 10/27/2024 8:45 AM EDT Office Visit Adult Medicine South - [address] [phone] Didi Conner MD [address] [place] [address] 11/16/2024 8:30 AM EDT Office Visit Endocrinology - [place] [address] [place] [address] Trini Montalvo PA [address] [place] [address] documented as of this encounter Visit Diagnoses Not on filedocumented in this encounter Additional Health Concerns Assessment Noted Time PHQ-9 Depression Total Score: 7 04/29/20 24 6:00 PM EST documented as of this encounter Care Teams County Health Officer Relationship Specialty Start Date End Date Didi Conner MD [address] [place], [place] PCP - General Internal Medicine 08/16/21 documented as of this encounter
--- OUTSIDE RECORDS SUMMARY | 2024-09-08 10:26 | XMS_ITS | Encounter Summary ---
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 For example, early childhood director or elderly care for an older adult? [...] on file documented as of this encounter Last Filed Vital Signs Vital Sign Reading Time Taken Comments Blood Pressure 110/62 09/01/2024 2:35 PM EDT C Pulse 107 09/01/2024 2:35 PM EDT Temperature 36.4 ??C (97.6 ??F) 09/01/2024 2:35 PM ED T Respiratory Rate - - Oxygen Saturation 95% 09/01/2024 2:35 PM EDT Inhaled Oxygen Concentration - - Weight 91.6 kg (202 lb) 09/01/2024 2:35 PM EDT Height 162.6 cm (5' 4 ) 09/01/2024 2:35 PM EDT Body Mass Index 34.67 09/01/2024 2:35 PM EDT documented in this encounter Patient Instructions * Attachments The following attachments cannot be sent through Care Everywhere. 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 2 mL 09/01/2024 09/05/2024 documented in this encounter Progress Notes * Tanisha Singh MA - 09/01/2024 2:15 PM EDT BS - 217 - Non fasting per CGM * JONATHAN Kim - 09/01/2024 2:15 PM EDT CHIEF COMPLAINT: Diabetes IDENTIFIER: Ciera Haas is a 54 y.o. old female. HPI: Patient presents to the office for diabetes follow-up. Past medical history of type 2 diabetes, morbid obesity, microalbuminuria, depression, hyperlipidemia, GERD, hypertension, congestive heart failure, asthma, and anxiety. Type 2 diabetes: Lab Results Component Value Date HGBA1C 6.7 (H) 05/06/2024 HGBA1C 7.2 (A) 11/25/2023 She is using CGM but did not bring reader. She is not sharing data. Information to connect with [facility] provided Last visit we tried to decrease her metformin but states blood sugars have been elevated since then States they are constantly in the 200s Blood sugar in the office 217 She did go back up to metformin at 1000 mg twice a day. They want to go back to Trulicity or something similar as they feel this helped the best to control her sugars She has been following up with ophthalmology and states that she has been having issues with his vision. News Clerk is strongly encouraging her to get her sugars to normal range in order to decrease progress of eye disease. Diabetes medications: Metformin at 1000 mg twice a day. In the past she was on Jardiance but it did cause her UTIs and yeast infections. Trulicity caused GI side effects Wt Readings from Last 3 Encounters: 09/01/24 91.6 kg (202 lb) 06/28/24 90.3 kg (199 lb) 06/16/24 91.2 kg (201 lb) ROS: GENERAL: No malaise, significant weight loss or fever HEENT: No changes in hearing or vision, nose bleeds or other nasal problems RESPIRATORY: No cough, wheezing or shortness of breath CARDIOVASCULAR: No chest pain, leg swelling or palpitations GI: No abdominal discomfort, blood in stools or black stools ENDOCRINE: See HPI MUSCULOSKELETAL: No joint pain or swelling, back pain, or muscle pain. NEURO: No persistent headache, syncope, seizures, weakness or numbness PAST MEDICAL HISTORY: Patient Active Problem List Diagnosis Date Noted Orthostatic hypotension 04/29/2024 Fatty liver 09/28/2023 Cataract of both eyes 02/10/2022 CAD (coronary artery disease) 01/15/2022 CHF (congestive heart failure) ([facility]) 09/23/2021 Charcot's joint arthropathy in type 2 diabetes mellitus ([facility]) 06/11/2021 Microalbuminuria 01/07/2019 Type 2 diabetes with nephropathy ([facility]) 01/07/2019 Type II diabetes mellitus with peripheral autonomic neuropathy ([facility]) 08/16/2018 Cervical radiculopathy 08/05/2018 Diverticulosis 06/04/2018 Hiatal hernia 06/04/2018 Bilateral diabetic retinopathy ([facility]) 06/02/2018 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 Essential (primary) hypertension 06/02/2018 Macular edema 06/02/2018 GERD (gastroesophageal reflux disease) 05/17/2018 Hidradenitis suppurativa 05/17/2018 Severe obesity (BMI 35.0-39.9) with comorbidity ([facility]) 05/17/2018 Anxiety 05/24/2012 Asthma 05/24/2012 Hyperlipidemia 05/24/2012 Major depressive disorder 05/24/2012 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 ([facility]) 05/24/2012 SOCIAL HISTORY: Social History Tobacco Use Smoking status: Former Current packs/day: 0.00 Average packs/day: 2.0 packs/day for 32.0 years (64.0 ttl pk-yrs) Types: Cigarettes Start date: 1984 Quit date: 2016 Years since quittin.2 Smokeless tobacco: Never Tobacco comments: Started age 15; max 2 PPD; quit 2015 Substance Use Topics Alcohol use: No FAMILY HISTORY: Family Status Relation Name Status Mother Father Sister x 2 Alive Brother x 1 Alive MGM MGF PGM PGF unknown No partnership data on file Family History Problem Relation Name Age of Onset Diabetes Mother Hypertension; lung cancer +smoker Leukemia Father 47 diabetes Coronary artery disease Sister x 2 bipolar, HTN Diabetes Brother x 1 HTN, HLD, bipolar Heart attack Maternal Grandmother ETOH abuse Other (MVA related ) Maternal Grandfather ACTIVE MEDICATIONS: Outpatient Medications Marked as Taking for the 09/01/24 encounter (Office Visit) with JONATHAN Kim Medication Sig Dispense Refill adalimumab (Humira,CF, Pen) 80 mg/0.8 mL pen Inject 0.8 mL (80 mg total) under the skin every 14 (fourteen) days. albuterol HFA (PROAIR HFA ; PROVENTIL HFA ; VENTOLIN HFA) 90 mcg/actuation inhaler Inhale 2 Puffs into the lungs every 4 hours as needed for Cough or Wheezing. ARIPiprazole (ABILIFY) 2 mg tablet Take 1 tablet (2 mg total) by mouth 1 (one) time each day. aspirin 81 mg EC tablet Take 81 mg by mouth daily. atorvastatin (LIPITOR) 40 mg tablet Take 1 tablet (40 mg total) by mouth 1 (one) time each day. blood-glucose sensor (Heroes2ucom G6 Sensor) device Change sensor every 10 days. Box = Kit = EA 9 each 3 blood-glucose transmitter (Dexcom G6 Transmitter) device Change sensor every 3 months 1 each 3 buPROPion SR (WELLBUTRIN SR) 150 mg 12 hr tablet Take 150 mg by mouth 2 times daily. busPIRone (BUSPAR) 10 mg tablet Take 1 tablet (10 mg total) by mouth 2 (two) times a day. DULoxetine (CYMBALTA) [address] capsule (Patient taking differently: Take 1 capsule (60 mg total) bymouth 1 (one) time each day.) esomeprazole (NexIUM) [address] capsule Take 1 capsule (40 mg total) by mouth 1 (one) time each day before breakfast. Do not open capsule. 30 each 11 fluticasone propion-salmeteroL (Advair HFA) 45-21 mcg/actuation inhaler Inhale 1 Puff into the lungs 2 times daily. fluticasone propionate (FLONASE) 50 mcg/actuation nasal spray 2 Sprays by Nasal route daily. freestyle 28 gauge lancets Check blood sugar once daily. 100 each 3 FreeStyle Test test strip Check blood sugar once daily. 100 each 3 gabapentin (NEURONTIN) 300 mg capsule Take 1 capsule (300 mg total) by mouth 2 (two) times a day. 60 capsule 2 Lactobacillus acidophilus 500 million cell capsule Take 1 capsule by mouth 1 (one) time each day. 30 capsule 2 loratadine (CLARITIN) 10 mg tablet Take 1 tablet (10 mg total) by mouth 1 (one) time each day. 30 tablet 2 magnesium oxide (MAG-OX) 400 mg (241.3 elemental magnesium) tablet Take 1 tablet (400 mg total) by mouth 1 (one) time each day. 30 tablet 2 melatonin 5 mg tablet TAKE 1-2 TABLETS BY MOUTH AT BEDTIME DIRECTED metFORMIN XR (GLUCOPHAGE-XR) 500 mg 24 hr tablet Take 2 tablets (1,000 mg total) by mouth 2 (two) times a day. Do not crush, chew, or split. 120 each 11 ondansetron (ZOFRAN) 4 mg tablet Take 1 tablet (4 mg total) by mouth 3 (three) times a day. 60 tablet 11 tiotropium (Spiriva Respimat) 1.25 mcg/actuation inhalation spray Inhale 2 Puffs into the lungs daily. [DISCONTINUED] amLODIPine (NORVASC) 2.5 mg tablet [DISCONTINUED] omeprazole OTC (PriLOSEC OTC) 20 mg EC tablet Take 1 tablet (20 mg total) by mouth 2(two) times a day. Take on empty stomach, wait 30 minutes and then eat to activate medicine before breakfast and dinner 60 tablet 11 ALLERGIES: Oxycodone-acetaminophen, Tramadol, and Adhesive PHYSICAL EXAM: Blood pressure 110/62, pulse 107, temperature 36.4 ??C (97.6 ??F), temperature source Temporal, height 1.626 m (64 ), weight 91.6 kg (202 lb), SpO2 95%. Body mass index is 34.67 kg/m??. BMI is greater than 25.0 (above the normal range) - see Plan APPEARANCE: Alert and in no acute distress NEURO: Awake, alert and oriented x 3 LABS: Lab Results Component Value Date HGBA1C 6.7 (H) 05/06/2024 CHOL 120 05/06/2024 LDL 22 07/15/2023 HDL 67 05/06/2024 TRIG 135 05/06/2024 Lab Results Component Value Date GLUCOSE 215 (H) 05/06/2024 No results found for: TSH IMAGING: IMPRESSION: 1. 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 Patient with no family history of MEN or thyroid cancer. No history of pancreatitis. Side effects reviewed including nausea, upset stomach, increased lipase, vomiting, diarrhea, increase amylase, passing gas, and allergic reaction discussed. Print out on medication with SE provided to patient. She will connect with DOS, Send us a message at the end of the month to let us know how she is doing medication for titration She already has a follow-up in November All questions and concerns were addressed. Patient understands and agrees with this treatment plan.Patient was reminded to call or return to the office if any new or existing problems arise This document was made using voice recognition software. 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 Dispense: 2 mL; Refill: 0 JONATHAN Kim on 09/01/2024 at 2:54 PM EDT documented in this encounter Plan of Treatment Upcoming Encounters Date Type Department Care Team (Late st Contact Info) Description 09/14/2024 8:30 AM EDT Office Visit Orthopedic Surgery [facility] [address] [phone] Roel Pal, DPM [address] [address] 09/22/2024 11:00 AM EDT Appointment [facility] CT Scan [address] [place] [address] 10/05/2024 9:20 AM EDT Appointment Radiology Department - [address] [phone] 10/17/2024 3:30 PM EDT Appointment [facility] CT Scan [address] [place] [address] 10/27/2024 8:45 AM EDT Office Visit Adult Medicine South - [address] [phone] Didi Conner MD [address] [place] [address] 11/16/2024 8:30 AM EDT Office Visit Endocrinology - [place] [address] [place] [address] Trini Montalvo PA [address] [place] [address] documented as of this encounter Results * (ABNORMAL) Hemoglobin A1c (09/01/2024 3:08 PM EDT) Hemoglobin A1C 7.9(H) <6.5 % LAB CHEMISTRY METHOD 09/01/2024 6:54 PM EDT [facility] Mean Bld Glu Estim. 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 Therapy completed 03/13/2023 09/01/2024 isosorbide mononitrate (IMDUR) 30 mg 24 hr tablet Take 1 tablet (30 mg total) by mouth 1 (one) time each day in the morning. Discontinued by another clinician 05/20/2024 09/01/2024 omeprazole OTC (PriLOSEC OTC) 20 mg EC tablet Take 1 tablet (20 mg total) by mouth 2 (two) times a day. Take on empty stomach, wait 30 minutes and then eat to activate medicine before breakfast and dinner Patient Discharge 06/24/2024 09/01/2024 pantoprazole (PROTONIX) 40 mg EC tablet Take 1 tablet (40 mg total) by mouth 2 (two) times a day. Take on empty stomach, wait 30 mins and then eat to activate the medication- before breakfast and supper Patient Discharge 05/06/2024 09/01/2024 omeprazole (PriLOSEC) [address] capsule Take 1 capsule (40 mg total) by mouth 2 (two) times a day before meals. On empty stomach, wait 30 minutes and then eat to activate medication-before breakfast and supper Formulary change 06/20/2024 09/01/2024 documented as of this encounter Additional Health Concerns Assessment Noted Time PHQ-9 Depression Total Score: 7 04/29/20 24 6:00 PM EST documented as of this encounter Care Teams Gold Nib Grinder Relationship Specialty Start Date End Date Didi Conner MD [address] [place] [address] PCP - General Internal Medicine 08/16/21 documented as of this encounter
--- OUTSIDE RECORDS SUMMARY | 2024-09-08 10:26 | XMS_ITS | Encounter Summary ---
Author Organization [facility] Address [address] [place] [address] Care Team Providers Care Fuel Assembler Name Role Phone Didi Conner MD Primary Care Provider [phone] Encounter Details Date Type Department Care Team Description 11/04/2023 Hospital Medical Records [address] [place] [id number] [place] [address] Social History Tobacco Use Types Packs/Day Years [...] Procedure Name Priority Date/Time Associated Diagnosis Comments OUTSIDE ECHO Routine 11/04/2023 documented in this encounter Results * OUTSIDE ECHO (11/04/2023) Provider Default CARDIOLOGY [facility] documented in this encounter Visit Diagnoses Not on filedocumented in this encounter Care Teams Fuel Assembler Relationship Specialty Start Date End Date Didi Conner MD [address] [place] [address] PCP - General Internal Medicine 08/16/21 documented as of this encounter
--- OUTSIDE RECORDS SUMMARY | 2024-09-08 10:26 | XMS_ITS | Encounter Summary ---
Author Organization [facility] Address [address] [place] [address] Care Team Providers Care Sheet Rock Taper Name Role Phone Didi Conner MD Primary Care Provider [phone] Encounter Details Date Type Department Care Team Description 04/09/2023 SCAN [facility] [address] [address] Roel Pal DPM [address] [address] Social History Tobacco Use Types Packs/Day Years [...] suspected to have Coronavirus/COVID-19? No / Unsure 03/23/2023 8:49 AM EDT documented as of this encounter Plan of Treatment Not on file documented as of this encounter Visit Diagnoses Not on filedocumented in this encounter Care Teams Sheet Rock Taper Relationship Specialty Start Date End Date Didi Conner MD [address] [place] [address] PCP - General Internal Medicine 08/16/21 documented as of this encounter
--- OUTSIDE RECORDS SUMMARY | 2024-09-08 10:26 | XMS_ITS | Clinical Summary ---
Author Organization [facility] Address [address] [place] [address] Care Team Providers Care Exhibits Manager Name Role Phone Didi Conner MD Primary Care Provider Allergies Active Allergy Reactions Severity Noted Date Comments Tape Rash/Dermatitis 05/17/2018 Blistering Oxycodone-Acetaminophen Itching/Pruritus 2011 Oxycodone-Acetaminophen Itching/Pruritus 2011 Tramadol Nausea and Vomiting 05/17/2018 Medications Medication Sig Dispensed Refills Start Date End Date Status buPROPion (WELLBUTRIN SR) 150 MG 12 hr tablet Take 150 mg by mouth 2 times daily. 0 Active Advair HFA 45-21 MCG/ACT inhaler Inhale 1 Puff into the lungs 2 times daily. 0 09/12/2021 Active Aspirin Low Dose 81 MG EC tablet Take 81 mg by mouth daily. 0 10/11/2021 Active Melatonin 5 MG Tab TAKE 1-2 TABLETS BY MOUTH AT BEDTIME DIRECTED 0 09/19/2021 Active Spiriva Respimat 1.25 MCG/ACT Aero Soln Inhale 2 Puffs into the lungs daily. 0 01/03/2022 Active atorvastatin (LIPITOR) 40 MG tablet 0 01/04/2022 Active FreeStyle Lancets Misc Use to check blood sugar three times daily 300 Each 1 07/17/2022 Active Doxycycline Monohydrate (MONODOX) 100 MG capsule 0 03/13/2023 Active clindamycin (CLEOCIN T) 1 % lotion 0 03/02/2023 Active Glucagon, rDNA, (Glucagon Emergency) 1 MG KitIndications:Type 2 diabetes with nephropathy (HCC) Inject 1 Dose into the skin as needed (severe hypoglycemia). 1 Kit 0 07/15/2023 Active Humira, 2 Pen, 80 MG/0.8ML Pen-injector Kit 0 06/26/2023 Active Diclofenac Sodium 1 % Gel Apply 4 g topically 2 times daily. 100 g 2 08/06/2023 Active aripiprazole (ABILIFY) 5 MG tablet Take 1 Tablet by mouth daily. 0 08/11/2023 Active fluticasone (Flonase) 50 MCG/ACT nasal spray 2 Sprays by Nasal route daily. 47.4 mL 1 09/28/2023 Active ALBUTEROL SULFATE (Ventolin HFA) 108 (90 Base) MCG/ACT Aero Soln Inhale 2 Puffs into the lungs every 4 hours as needed for Cough or Wheezing. 54 g 1 09/28/2023 Active Continuous Glucose Transmitter (Dexcom G6 Transmitter) MiscIndications:Type 2 diabetes mellitus with retinopathy of both eyes, with long-term current use of insulin, macular edema presence unspecified, unspecified retinopathy severity (HCC) Change every 3 months for use in checking BS 1 Each 3 10/19/2023 Active Nutritional Supplements (Glucose Management) Tab Take 4 Tablets by mouth as needed for Other (low blood sugar). 4 mg dose 50 Tablet 5 11/13/2023 Active busPIRone (BUSPAR) 10 MG tablet Take 1 Tablet by mouth 2 times daily. B.H. 0 Active duloxetine (CYMBALTA) 30 MG capsule Take 1-2 Capsules by mouth 2 times daily. B.H. 0 Active nystatin (MYCOSTATIN) powder Apply topically 2 times daily as needed. Under breasts and groin- DERM 0 Active Misc. Devices (Folding Car Sander) MiscIndications:At risk for falling,Orthostatic hypotension,Type II diabetes mellitus with peripheral autonomic neuropathy (HCC) 1 Each by Does not apply route daily. ALEXANDER-99 1 Each 0 11/26/2023 Active Continuous Glucose Sensor (Dexcom G6 Sensor) MiscIndications:Type 2 diabetes mellitus with retinopathy of both eyes, with long-term current use of insulin, macular edema presence unspecified, unspecified retinopathy severity (HCC) USE DIRECTED PER ADMIN INSTRUCTIONS. PLACE NEW SENSOR ON EVERY 10 DAYS. 3 Each 11 02/22/2024 Active metformin (GLUCOPHAGE) 1000 MG tablet TAKE 1 TABLET BY MOUTH TWICE DAILY. 60 Tablet 5 03/18/2024 Active Magnesium Oxide -Mg Supplement 400 (240 Mg) MG Tab TAKE 1 TABLET BY MOUTH DAILY. 30 Tablet 1 03/18/2024 Active gabapentin (NEURONTIN) 300 MG capsule TAKE (1) CAPSULE BY MOUTH TWICE DAILY. 60 Capsule 1 03/18/2024 Active Lactobacillus (Acidophilus) Cap TAKE (1) CAPSULE BY MOUTH DAILY 30 Capsule 1 03/18/2024 Active loratadine (CLARITIN) 10 MG tablet TAKE 1 TABLET BY MOUTH DAILY. 30 Tablet 1 03/18/2024 Active omeprazole (PRILOSEC) 20 MG capsule TAKE (1) CAPSULE BY MOUTH TWICE DAILY. 60 Capsule 1 03/18/2024 Active Active Problems Problem Noted Date Fatty liver 09/28/2023 Cataract of both eyes 02/10/2022 CAD (coronary artery disease) 01/15/2022 Overview: with 4 stents placed (10/11/21, [facility]) NSTEMI 11/05 - cath showed open grafts no culprit lesion CHF (congestive heart failure) 2 Charcot's joint arthropathy in type 2 di abetes mellitus 06/11/2021 Overview: Dr. 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 Dependence on supplemental oxygen 07/18/2021 01/14/2022 Overview: To maintain O2 saturation above 90% [facility] pulmonary center COVID-19 virus detected 10/18/2020 01/15/20 Overview: Hospitalized at [facility] was 85% on room air and required oxygen s/p right 2nd metatarsal bas e resection performed on 11/12/[address] Corral 12/07/2018 06/11/2021 Closed fracture of tarsal and metatarsal bones o f right foot 10/12/2018 06/11/2021 Closed displaced fracture of navicular bone of r ight foot 10/12/2018 06/11/2021 Chronic left shoulder pain 08/05/201801/07 Verruca vulgaris 06/02/2018 01/15/2022 Low back pain 06/02/2018 08/16/2018 Allergic rhinitis 05/24/2012 08/16/2018 Atypical chest pain 05/24/2012 05/17/2018 Overview: 10/24 cardiac stress test is negative for ischemia 09/24 echo revealed normal left ventricular systolic function with EF 55-60%, no valvular abnormalities. Immunizations Name Administration Dates Next Due COVID-19 (CMGE AND CMGE) 03/09/2021 Hepatitis B (Generic) 06/15/1994 Hepatitis B > 19yrs 06/15/1994 Influenza (> 6 Months) 02/20/2016 Influenza Vaccine-preservati ve Free-quadrivalent 4 Years 03/23/2023,04/02/2022,08/16/2018,03/03 Pneumoccoccal(Adult) Polysac charide PPSV23 09/19/2015,04/15/2004 TD (STATE SUPPLIED FOR ADULT S AND CHILDREN) 03/12/2013,03/15/2006 Tdap 08/16/2018 Family History Medical History Relation Name Comments Diabetes Father cancer - type n ot specified Leukemia Father Diabetes Mother Hypertension CA Colon Negative Hx CA Ovarian Negative Hx Cancer of the Breast Negative Hx Cancer of the Pancreas Negative Hx Cervical Cancer Negative Hx Relation Name Status Comments Father Mother Social History Tobacco Use Types Packs/Day Years Used Date Smoking Tobacco: Former Cigarettes 2 30 Smokeless Tobacco: Never Tobacco Cessation:Counseling Given: Not Answered Comments:started @ age 14/ quit @ age 44 Alcohol Use Standard Drinks/Week Comments No 0 (1 standard drink = 0.6 oz pur e alcohol) Sex Assigned at Date Recorded Not on file Job Start Date Occupation Industry Not on file Not on file Not on file Last Filed Vital Signs Vital Sign Reading Time Taken Comments Blood Pressure 100/60 11/25/2023 1:30 PM EDT Pulse 112 11/25/2023 1:30 PM EDT Temperature 37.1 ??C (98.8 ??F) 11/25/2023 1:30 PM ED T Respiratory Rate 16 11/25/2023 1:30 PM EDT Oxygen Saturation 96% 08/27/2023 10:49 AM EDT Inhaled Oxygen Concentration - - Weight 95.7 kg (211 lb) 03/16/2024 8:09 AM EDT Height 162.6 cm (5' 4 ) 03/16/2024 8:09 AM EDT Body Mass Index 36.22 03/16/2024 8:09 AM EDT Plan of Treatment Health Maintenance Due Date Last Done Comments DIABETES: ANNUAL FOOT EXAM 11/05/202311/04 (Completed), 04/10/2021, 04/10/2021 (External Completion), Additional history exists Covid-19 Vaccine (2022-2 4 season) 2024 03/09/2021 INFLUENZA (#1) 2024 03/23/2023, 03/15, 08/16/2018, Additional history exists DIABETES: BLOOD SUGAR CONTRO L TEST (HGBA1C) 02/25/2024 11/25/2023, 07/15/2023, 07/15/2023, Additional history exists DEPRESSION SCREEN 03/23/2024 03/23/2023, , 08/16/2018 BMI CHECK/ADVISE 06/15/2024 03/16/2024, 06/2023, 11/13/2023, Additional history exists DIABETES/HEART DISEASE: ANNA SELF CHOLESTEROL (LDL) 07/15/2024 07/15/2023, 10/08/2022, 02/10/2022, Additional history exists DIABETES: ANNUAL EYE EXAM 07/30/20242023, 03/06/2023 (External Completion), 01/02/2022, Additional history exists DIABETES: ANNUAL URINE PROTE IN TEST (MICROALBUMIN) 09/27/2024 09/28/2023, 01/15/2023, 02/10/2022, Additional history exists CERVICAL CANCER SCREENING 03/26/20252021, 07/09/2017 (External Completion), 07/09/2017, Additional history exists MAMMOGRAM 04/06/2025 04/06/2024, 09/14, 08/13/2023 BASELINE HEALTH EXAM 40-64 09/27/202509/27, 07/15/2023, 03/23/2023, Additional history exists COLON CANCER SCREENING 04/12/2028 8 (External Completion), 04/12/2018 DTAP/TDAP/TD (2 - Td or Tdap) 08/16/2028, 08/16/2018, 03/12/2013, Additional history exists PNEUMOCOCCAL VACCINE FOR HIG H RISK PATIENTS Completed 09/19/2015, 04/15/2004 HEPATITIS C SCREENING Completed 02/10/2022 SHINGLES VACCINE Discontinued Care Teams Exhibits Manager Relationship Specialty Start Date End Date Didi Conner MD [address] [place] [phone] PCP - General Internal Medicine 08/16/21
--- OUTSIDE RECORDS SUMMARY | 2024-09-08 10:26 | XMS_ITS | Encounter Summary ---
Author Organization [facility] Address [address] [place] [address] Care Team Providers Care Pumper Gager Apprentice Name Role Phone Didi Conner MD Primary Care Provider [phone] Reason for Visit * Reason Comments E-prescribe Rx Request Encounter Details Date Type Department Care Team Description 12/04/2023 Refill Endocrinology - [address] [phone] Maritza Uribe PA-C [address] [place] [address] [phone] E-prescribe Rx Request Social History Tobacco Use [...] as of this encounter Visit Diagnoses Diagnosis Type 2 diabetes mellitus with retinopathy of both eyes, with long-term current use of insulin, macular edema presence unspecified, unspecified retinopathy severity (HCC) documented in this encounter Care Teams Pumper Gager Apprentice Relationship Specialty Start Date End Date Didi Conner MD [address] [place] [phone] PCP - General Internal Medicine 08/16/21 documented as of this encounter
--- OUTSIDE RECORDS SUMMARY | 2024-09-08 10:26 | XMS_ITS | Encounter Summary ---
Author Organization [facility] Address [address] [place] [address] Care Team Providers Care Aqua Ammonia Operator Name Role Phone Didi Conner MD Primary Care Provider [phone] Reason for Visit * Reason Comments E-prescribe Rx Request Encounter Details Date Type Department Care Team Description 04/03/2023 Refill Endocrinology - [address] [address] Ryan Helton MD [address] [place] [address] E-prescribe Rx Request Social History Tobacco Use [...] In the last 10 days, have amina u been in contact with someone who [...] (HCC) documented in this encounter Care Teams Aqua Ammonia Operator Relationship Specialty Start Date End Date Didi Conner MD [address] [place] [address] [phone] PCP - General Internal Medicine 08/16/21 documented as of this encounter
--- OUTSIDE RECORDS SUMMARY | 2024-09-08 10:26 | XMS_ITS | Encounter Summary ---
Author Organization [facility] Address [address] [place] [address] Care Team Providers Care Filter Press Pumper Name Role Phone Didi Conner MD Primary Care Provider [phone] Reason for Visit * Reason Onset Date Comments Prior Authorization 07/22/2024 Encounter Details Date Type Department Care Team ([facility] st Contact Info) Description 07/22/2024 Telephone Gastroenterology - Street [address] [place] [phone] Thaddeus Christopher PA [address] [place] [address] Prior Authorization Social History Tobacco Use Types Packs/Day Years Used Date Smoking Tobacco: Former Cigarettes 2 32 1 985 - 2017 Smokeless Tobacco: Never Comments:Started age 15; max [...] your loved ones. For example, early childhood teacher assistant or elderly care for an older adult? [...] as of this encounter Progress Notes * Negin Mcdonnell MA - 08/09/2024 12:32 PM EST Per cmm The medication you have requested is not covered by Medicare Part D Law. * Tyra Andres - 07/22/2024 11:22 AM EST Prior Authorization for Medication-do not complete and send this encounter unless you have the fax from the pharmacy. Is this a Cover My Meds request: YES [id number] Name of Medication omeprazole OTC (PriLOSEC OTC) Dose of Medication 20 mg EC tablet What is the RX # from the faxed refill? How does patient take this med? Take 1 tablet (20 mg total) by mouth 2 (two) times a day. Take on empty stomach, wait 30 minutes and then eat to activate medicine before breakfast and dinner What Pharmacy did the fax come from: [facility] fax #: [phone]. documented in this encounter Plan of Treatment Upcoming Encounters Date Type Department Care Team (Late st Contact Info) Description 09/14/2024 8:30 AM EDT Office Visit Orthopedic Surgery [facility] [address] [phone] Roel Pal, DPM [address] [address] 09/22/2024 11:00 AM EDT Appointment [facility] CT Scan [address] [place] [address] 10/05/2024 9:20 AM EDT Appointment Radiology Department [address] [phone] 10/17/2024 3:30 PM EDT Appointment [facility] CT Scan [address] [place] [address] 10/27/2024 8:45 AM EDT Office Visit [facility] [place] [address] [place] [address] Didi Conner MD [address] [place] [address] 11/16/2024 8:30 AM EDT Office Visit Endocrinology - [address] [phone] Trini Montalvo PA [address] [place] [address] documented as of this encounter Visit Diagnoses Not on filedocumented in this encounter Additional Health Concerns Assessment Noted Time PHQ-9 Depression Total Score: 7 04/29/20 24 6:00 PM EST documented as of this encounter Care Teams Filter Press Pumper Relationship Specialty Start Date End Date Didi Conner MD [address] [place] [address] PCP - General Internal Medicine 08/16/21 documented as of this encounter
--- OUTSIDE RECORDS SUMMARY | 2024-09-08 10:26 | XMS_ITS | Encounter Summary ---
Author Organization [facility] Address [address] [place] [address] Care Team Providers Care Rectification Printer Name Role Phone Didi Conner MD Primary Care Provider [phone] Encounter Details Date Type Department Care Team ([facility] st Contact Info) Description 08/25/2024 Telephone Gastroenterology - [place] [address] [facility] [address] [place] [phone] Thaddeus Christopher PA [address] [place] [address] Social History Tobacco Use Types Packs/Day Years [...] care for your loved ones. For example, child custody evaluator or elderly care for an older adult? [...] as of this encounter Progress Notes * JONATHAN Fregoso - 08/25/2024 12:53 PM EDT Patient has undergone stool studies and they were all negative as well as labs. Patient has tried Imodium and Lomotil and is not helping and she is still having several bouts of loose watery stool a day. Can patient considered for a colonoscopy to rule out microscopic colitis and she is still having issues with swallowing so can she also be scheduled for the endoscopy as well. Please advise documented in this encounter Plan of Treatment Upcoming Encounters Date Type Department Care Team (Late st Contact Info) Description 09/14/2024 8:30 AM EDT Office Visit Orthopedic Surgery [facility] [address] [phone] Roel Pal, DPM [address] [address] 09/22/2024 11:00 AM EDT Appointment [facility] CT Scan [address] [place] [address] 10/05/2024 9:20 AM EDT Appointment Radiology Department - [address] [phone] 10/17/2024 3:30 PM EDT Appointment [facility] CT Scan [address] [place] [address] 10/27/2024 8:45 AM EDT Office Visit Adult Medicine [facility] - [address] [phone] Didi Conner MD [address] [place] [address] 11/16/2024 8:30 AM EDT Office Visit Endocrinology [address] [phone] Trini Montalvo PA [address] [place] [address] documented as of this encounter Visit Diagnoses Not on filedocumented in this encounter Additional Health Concerns Assessment Noted Time PHQ-9 Depression Total Score: 7 04/29/20 24 6:00 PM EST documented as of this encounter Care Teams Rectification Printer Relationship Specialty Start Date End Date Didi Conner MD [address] [place] [address] PCP - General Internal Medicine 08/16/21 documented as of this encounter
--- OUTSIDE RECORDS SUMMARY | 2024-09-08 10:26 | XMS_ITS | Encounter Summary ---
Author Organization [facility] Address [address] [place] [address] Care Team Providers Care Mid Level Java Developer Name Role Phone Didi Conner MD Primary Care Provider [phone] Encounter Details Date Type Department Care Team Description 11/17/2022 Telephone [facility] [address] [address] Roel Pal DPM [address] [address] Social History Tobacco Use Types Packs/Day Years [...] suspected to have Coronavirus/COVID-19? No / Unsure 11/12/2022 8:31 AM EDT documented as of this encounter Miscellaneous Notes * Telephone Encounter - Estelle Hoang M.A. - 11/21/2022 10:59 AM EDT Pended in separate encounter for Dr Pal to review and sign * Telephone Encounter - Marta Merchant - 11/17/2022 11:57 AM EDT Ciera called in stating Dr. Pal sent over a prescription for one pair of diabetic inserts. She stated usually they give her 4 pairs for the year and is asking for 3 more to be sent. Please advise. Thank you documented in this encounter Plan of Treatment Not on file documented as of this encounter Visit Diagnoses Not on filedocumented in this encounter Care Teams Mid Level Java Developer Relationship Specialty Start Date End Date Didi Conner MD [address] [place] [address] PCP - General Internal Medicine 08/16/21 documented as of this encounter
--- OUTSIDE RECORDS SUMMARY | 2024-09-08 10:26 | XMS_ITS | Encounter Summary ---
Author Organization [facility] Address [address] [place] [address] Care Team Providers Care Community Resource Consultant Name Role Phone Didi Conner MD Primary Care Provider Reason for Visit * Reason Onset Date Comments Prior Authorization 10/20/2023 Encounter Details Date Type Department Care Team Description 10/20/2023 Telephone Endocrinology - [address] [address] Trini Montalvo PA-C [address] [place] [address] Prior Authorization Social History Tobacco Use Types [...] encounter Miscellaneous Notes * Telephone Encounter - Tonie Edwards - 11/02/2023 3:27 PM EDT JONATHAN request submitted to [employer] via [employer] Pending approval * Telephone Encounter - Estelle Quintana - 10/30/2023 2:40 PM EDT Geovany calling to inquire about the status of this prior auth. Please advise. Best number to call is [phone] * Telephone Encounter - Alvaro Easley - 10/20/2023 10:28 AM EDT Prior Authorization for Medication-do not complete and send this encounter unless you have the fax from the pharmacy. Is this a Cover My Meds request: Yes -- Lew Code [id number] Name of Medication Dexcom G6 Transmitter Dose of Medication n/a What is the RX # from the faxed refill? N/a How does patient take this med? N/a What Pharmacy did the fax come from: [facility] fax #: [phone] documented in this encounter Plan of Treatment Not on file documented as of this encounter Visit Diagnoses Not on filedocumented in this encounter Care Teams Community Resource Consultant Relationship Specialty Start Date End Date Didi Conner MD [address] [place] [id number] PCP - General Internal Medicine 08/16/21 documented as of this encounter
--- OUTSIDE RECORDS SUMMARY | 2024-09-08 10:26 | XMS_ITS | Encounter Summary ---
Author Organization [facility] Address [address] [place] [address] Care Team Providers Care Doweling Machine Operator Name Role Phone Didi Conner MD Primary Care Provider [phone] Encounter Details Date Type Department Care Team Description 12/15/2023 SCAN [facility] [address] [phone] Roel Pal DPM [address] [address] Social History Tobacco Use Types Packs/Day Years [...] on filedocumented in this encounter Care Teams Doweling Machine Operator Relationship Specialty Start Date End Date Didi Conner MD [address] [place] [address] [phone] PCP - General Internal Medicine 08/16/21 documented as of this encounter
--- OUTSIDE RECORDS SUMMARY | 2024-09-08 10:26 | XMS_ITS | Encounter Summary ---
Author Organization [facility] Address [address] [place] [address] Care Team Providers Care Operations And Intelligence Assistant Name Role Phone Didi Conner MD Primary Care Provider [phone] Encounter Details Date Type Department Care Team ([facility] st Contact Info) Description 09/05/2024 Telephone Gastroenterology - [place] [address] [facility] [address] [place] [phone] Thaddeus Christopher PA [address] [place] [address] Social History Tobacco Use Types Packs/Day Years [...] care for your loved ones. For example, healthcare recruiter or elderly care for an older adult? [...] encounter Progress Notes * JONATHAN Fregoso - 09/07/2024 2:10 PM EDT Ok thanks * Jodi Solano MA - 09/07/2024 2:03 PM EDT Endoscopy and Colonoscopy reports retrieved and are in your bin for review. * JONATHAN Fregoso - 09/05/2024 12:44 PM EDT Patient had endoscopy and colonoscopy performed by Dr. Wood in [place] in August 2017. Please obtain those results. Thank you documented in this encounter Plan of Treatment Upcoming Encounters Date Type Department Care Team (Late st Contact Info) Description 09/14/2024 8:30 AM EDT Office Visit Orthopedic Surgery [facility] [address] [phone] Roel Pal, DPM [address] [address] 09/22/2024 11:00 AM EDT Appointment [facility] CT Scan [address] [place] [address] 10/05/2024 9:20 AM EDT Appointment Radiology Department - [address] [phone] 10/17/2024 3:30 PM EDT Appointment [facility] CT Scan [address] [place] [address] 10/27/2024 8:45 AM EDT Office Visit Adult Medicine [place] - [address] [phone] Didi Conner MD [address] [place] [address] 11/16/2024 8:30 AM EDT Office Visit Endocrinology - [place] [address] [place] [address] Trini Montalvo PA [address] [place] [address] documented as of this encounter Visit Diagnoses Not on filedocumented in this encounter Additional Health Concerns Assessment Noted Time PHQ-9 Depression Total Score: 7 04/29/20 24 6:00 PM EST documented as of this encounter Care Teams Operations And Intelligence Assistant Relationship Specialty Start Date End Date Didi Conner MD [address] [place] [address] PCP - General Internal Medicine 08/16/21 documented as of this encounter
--- OUTSIDE RECORDS SUMMARY | 2024-09-08 10:26 | XMS_ITS | Encounter Summary ---
Author Organization [facility] Address [address] [place] [address] Care Team Providers Care Utilization Engineer Name Role Phone Didi Conner MD Primary Care Provider [phone] Encounter Details Date Type Department Care Team ([facility] st Contact Info) Description 08/17/2024 Telephone Gastroenterology - [place] [address] [place] [phone] Thaddeus Christopher PA [address] [place] [address] Social History Tobacco Use Types Packs/Day Years [...] for your loved ones. 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 [...] as of this encounter Progress Notes * Daphne Jaimes MD - 08/24/2024 4:39 PM EDT What is the status of her diarrhea? How did you work this up? * JONATHAN Fregoso - 08/17/2024 1:40 PM EST Patient had been seen for issues of heartburn and dysphagia. She underwent a barium swallow that the barium swallow noted that she did have reflux, moderate esophageal dysmotility but they also notedthat there was a pill that got stuck just before entering into the stomach and had suggested that she undergo an EGD. Is the pill being stuck due to her esophageal dysmotility, reflux or would you suspect that there is some narrowing and she should be scheduled for an EGD. Please advise documented in this encounter Plan of Treatment Upcoming Encounters Date Type Department Care Team (Late st Contact Info) Description 09/14/2024 8:30 AM EDT Office Visit Orthopedic Surgery - [place] [address] [phone] Roel Pal, DPM [address] [address] 09/22/2024 11:00 AM EDT Appointment [facility] CT Scan [address] [place] [address] 10/05/2024 9:20 AM EDT Appointment Radiology Department - [address] [address] 10/17/2024 3:30 PM EDT Appointment [facility] CT Scan [address] [place] [address] 10/27/2024 8:45 AM EDT Office Visit Adult Medicine South - [address] [phone] Didi Conner MD [address] [place] [address] 11/16/2024 8:30 AM EDT Office Visit Endocrinology - [place] [address] [place] [address] Trini Montalvo PA [address] [place] [address] documented as of this encounter Visit Diagnoses Not on filedocumented in this encounter Additional Health Concerns Assessment Noted Time PHQ-9 Depression Total Score: 7 04/29/20 24 6:00 PM EST documented as of this encounter Care Teams Utilization Engineer Relationship Specialty Start Date End Date Didi Conner MD [address] [place] [address] PCP - General Internal Medicine 08/16/21 documented as of this encounter
--- OUTSIDE RECORDS SUMMARY | 2024-09-08 10:26 | XMS_ITS | Encounter Summary ---
Author Organization [facility] Address [address] [place] [address] Care Team Providers Care Timber Framer Name Role Phone Didi Conner MD Primary Care Provider [phone] Encounter Details Date Type Department Care Team Description 10/30/2022 CGM Report Medical Records [address] [place] [address] Abstract, Provider Social History Tobacco Use Types [...] suspected to have Coronavirus/COVID-19? No / Unsure 10/03/2022 12:47 PM EDT documented as of this encounter Plan of Treatment Not on file documented as of this encounter Visit Diagnoses Not on filedocumented in this encounter Care Teams Timber Framer Relationship Specialty Start Date End Date Didi Conner MD [address] [place] [address] PCP - General Internal Medicine 08/16/21 documented as of this encounter
--- OUTSIDE RECORDS SUMMARY | 2024-09-08 10:26 | XMS_ITS | Encounter Summary ---
Author Organization [facility] Address [address] [place] [address] Care Team Providers Care Electrical Assistant Name Role Phone Didi Conner MD Primary Care Provider [phone] Reason for Referral * Imaging (Routine) - Pending Review Specialty Diagnoses / Procedures Referred By Contac t Referred To Contact Radiology Diagnoses Chronic diarrhea Procedures CT Abdomen Pelvis w Contrast Thaddeus Christopher PA [address] [address] Phone: tel: fax: [address] [address] Phone: tel: Referral ID Status Reason Start Date Expiration Date V isits Requested Visits Authorized [id number] Pending Review 08/25/2024 08/25/2025 1 1 Encounter Details Date Type Department Care Team ([facility] st Contact Info) Description 08/25/2024 Telephone Gastroenterology - [place] 175 [facility] [address] [phone] Thaddeus Christopher PA [address] [address] Social History Tobacco Use Types Packs/Day Years [...] for your loved ones. 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 [...] Progress Notes * JONATHAN Fregoso - 08/25/2024 4:51 PM EDT Before we can schedule you for a colonoscopy due to chronic diarrhea, it is noted that you are scheduled for CT of chest and it is suggested that we schedule you for CT of abdomen and pelvis as well to rule out why you have chronic diarrhea. Additionally I need a couple of labs such as a celiac panel as well as your CBC and metabolic panel and we will be in touch with you in regards to those results then we can move forward with the studies hopefully documented in this encounter Plan of Treatment Upcoming Encounters Date Type Department Care Team (Late st Contact Info) Description 09/14/2024 8:30 AM EDT Office Visit Orthopedic Surgery - [place] [address] [phone] Roel Pal, DPQuintin [address] [address] 09/22/2024 11:00 AM EDT Appointment [facility] CT Scan [address] [place] [address] 10/05/2024 9:20 AM EDT Appointment Radiology Department [address] [address] 10/17/2024 3:30 PM EDT Appointment [facility] CT Scan [address] [place] [phone] 10/27/2024 8:45 AM EDT Office Visit Adult Medicine [facility] [address] [place], [place] [phone] Didi Conner MD [address] [place], [place] 11/16/2024 8:30 AM EDT Office Visit [address] [phone] Trini Montalvo PA [address] [place] [address] Scheduled Orders Name Type Priority Associated Diagnoses Orde r Schedule CT Abdomen Pelvis w Contrast Imaging Routine Chronic diarrhea Expected: 08/25/2024, Expires: 08/25/2025 documented as of this encounter Results * (ABNORMAL) Immunoglobulin IgA (09/01/2024 3:08 PM EDT) Pathologist [facility] IgA 367(H) 61 - 348 mg/dL LAB CHEMISTRY METHOD 09/01/2024 6:23 PM EDT [facility] Blood Venous blood specimen / Unknown Venipuncture / Unknown 09/01/2024 3:08 PM EDT 09/01/2024 3:08 PM EDT us Thaddeus CASTILLO LAB BLOOD ORDERABLES Final Resu lt [facility] [address] [place] [address], * Tissue transglutaminase, IgA (09/01/2024 3:08 PM EDT) Pathologist [facility] Tissue Transglutaminase Ab, IgA Quant 2 <4 unit/mL LAB CHEMISTRY METHOD 09/07/2024 1:30 PM EDT [facility] Tissue Transglutaminase Ab, IgA Negative Negative LAB CHEMISTRY METHOD 09/07/2024 1:30 PM EDT [facility] Blood Venous blood specimen / Unknown Venipuncture / Unknown 09/01/2024 3:08 PM EDT 09/01/2024 3:08 PM EDT Thaddeus CASTILLO LAB BLOOD ORDERABLES Final Resu lt [facility] [address] [place] [address], [place] [phone] * Gliadin antibodies, serum (09/01/2024 3:08 PM EDT) Gliadin IgA 5 <20 units LAB CHEMISTRY METHOD 09/07/2024 1:30 PM EDT [facility] Gliadin IgG 1 <20 units LAB CHEMISTRY METHOD 09/07/2024 1:30 PM EDT [facility] Gliadin IgA Antibody Negative Negative LAB CHEMISTRY METHOD 09/07/2024 1:30 PM EDT [facility] Gliadin IgG Antibody Negative Negative LAB CHEMISTRY METHOD 09/07/2024 1:30 PM EDT [facility] Blood Venous blood specimen / Unknown Venipuncture / Unknown 09/01/2024 3:08 PM EDT 09/01/2024 3:08 PM EDT us Thaddeus CASTILLO LAB BLOOD ORDERABLES Final Resu lt [facility] [address] [place] [address], [place] [phone] * Endomysial antibody, IgA (09/01/2024 3:08 PM EDT) Endomysial IgA Negative Negative 09/08/2024 8:35 AM [facility] Blood Venous blood specimen / Unknown Venipuncture / Unknown 09/01/2024 3:08 PM EDT 09/01/2024 3:08 PM EDT us Thaddeus CASTILLO LAB BLOOD ORDERABLES Final Resu lt [facility] [address] [place] [address], [place] [phone] * (ABNORMAL) Comprehensive metabolic panel (09/01/2024 3:08 PM EDT) Sodium 136 133 - 145 mmol/L LAB CHEMISTRY METHOD 09/01/2024 6:23 PM [facility] Potassium 5.1 3.5 - 5.5 mmol/L LAB CHEMISTRY METHOD 09/01/2024 6:23 PM [facility] Chloride 100 96 - 110 mmol/L LAB CHEMISTRY METHOD 09/01/2024 6:23 PM [facility] CO2 27 21 - 32 mmol/L LAB CHEMISTRY METHOD 09/01/2024 6:23 PM [facility] Anion Gap 9 3 - 11 LAB CHEMISTRY METHOD 09/01/2024 6:23 PM [facility] Glucose 224(H) 70 - 100 mg/dL LAB CHEMISTRY METHOD 09/01/2024 6:23 PM [facility] BUN 28(H) 5 - 25 mg/dL LAB CHEMISTRY METHOD 09/01/2024 6:23 PM [facility] Creatinine 1.08 0.50 - 1.10 mg/dL LAB CHEMISTRY METHOD 09/01/2024 6:23 PM [facility] eGFR 60 >=60 mL/min/1. 73m2 LAB CHEMISTRY METHOD 09/01/2024 6:23 PM [facility] Comment:Calculation based on the??Chronic Kidney Disease Epidemiology Collaboration (CKD-EPI) equation refit??without adjustment for race. BUN/Creatinine Ratio 25.9 LAB CHEMISTRY METHOD 09/01/2024 6:23 PM EDT [facility] Calcium 9.7 8.5 - 10.5 mg/dL LAB CHEMISTRY METHOD 09/01/2024 6:23 PM EDT [facility] AST (SGOT) 15 10 - 42 unit/L LAB CHEMISTRY METHOD 09/01/2024 6:23 PM EDT [facility] ALT (SGPT) 28 10 - 60 unit/L LAB CHEMISTRY METHOD 09/01/2024 6:23 PM [facility] Alkaline Phosphatase 123(H) 42 - 121 unit/L LAB CHEMISTRY METHOD 09/01/2024 6:23 PM EDT [facility] Total Protein 6.9 6.0 - 8.0 g/dL LAB CHEMISTRY METHOD 09/01/2024 6:23 PM EDT [facility] Albumin 3.3 3.2 - 5.0 g/dL LAB CHEMISTRY METHOD 09/01/2024 6:23 PM EDT [facility] Total Bilirubin 0.6 0.0 - 1.4 mg/dL LAB CHEMISTRY METHOD 09/01/2024 6:23 PM T [facility] Blood Venous blood specimen / Unknown Venipuncture / Unknown 09/01/2024 3:08 PM EDT 09/01/2024 3:08 PM EDT us Thaddeus CASTILLO LAB BLOOD ORDERABLES Final Resu lt [facility] [address] [place] [address], documented in this encounter Visit Diagnoses Diagnosis Chronic diarrhea- Primary Diarrhea documented in this encounter Additional Health Concerns Assessment Noted Time PHQ-9 Depression Total Score: 7 04/29/20 24 6:00 PM EST documented as of this encounter Care Teams Electrical Assistant Relationship Specialty Start Date End Date Didi Conner MD [address] [place] [address] PCP - General Internal Medicine 08/16/21 documented as of this encounter
--- OUTSIDE RECORDS SUMMARY | 2024-09-08 10:26 | XMS_ITS | Encounter Summary ---
Author Organization [facility] Address [address] [place] [address] Care Team Providers Care Weigher Packing Name Role Phone Didi Conner MD Primary Care Provider [phone] Encounter Details Date Type Department Care Team Description 03/22/2024 Orders Only Medical Records [address] [place] [address] Casimiro Vogt MD Social History Tobacco Use Types Packs/Day [...] Name Priority Date/Time Associated Diagnosis Comments OUTSIDE EYE EXAM Routine 07/30/2023 documented in this encounter Results * OUTSIDE EYE EXAM (07/30/2023) Casimiro Vogt MD PROCEDURES documented in this encounter Visit Diagnoses Not on filedocumented in this encounter Care Teams Weigher Packing Relationship Specialty Start Date End Date Didi Conner MD [address] [place] [id number] PCP - General Internal Medicine 08/16/21 documented as of this encounter
--- OUTSIDE RECORDS SUMMARY | 2024-09-08 10:26 | XMS_ITS | Encounter Summary ---
Author Organization [facility] Address [address] [place] [address] Care Team Providers Care Boiler Engineer Name Role Phone Didi Conner MD Primary Care Provider [phone] Reason for Referral * Imaging - Closed Specialty Diagnoses / Procedures Referred By Contac t Referred To Contact Radiology Diagnoses Diarrhea, unspecified type Nausea Gastroesophageal reflux disease without esophagitis Fecal urgency Dysphagia, unspecified type Procedures XR Esophagram Thaddeus Christopher PA [address] [address] Phone: tel: fax: [facility] CT Scan [address] [place] [address] Phone: tel: Referral ID Status Reason Start Date Expiration Date Visits Re quested Visits Authorized [id number] Closed 07/21/2024 07/21/2025 1 1 Reason for Visit * Imaging - Closed Specialty Diagnoses / Procedures Referred By Contac t Referred To Contact Radiology Diagnoses Diarrhea, unspecified type Nausea Gastroesophageal reflux disease without esophagitis Fecal urgency Dysphagia, unspecified type Procedures XR Esophagram Thaddeus Christopher PA [address] [address] Phone: tel: fax: [facility] CT Scan [address] [place] [address] Phone: tel: Referral ID Status Reason Start Date Expiration Date Visits Re quested Visits Authorized [id number] Closed 07/21/2024 07/21/2025 1 1 Encounter Details Date Type Department Care Team (Latest Contact Info) Description 08/08/2024 9:18 AM EST - 08/08/2024 11:59 PM EST Hospital Encounter [facility] Xray [address] [place] [address] Diarrhea, unspecified type; Nausea; Gastroesophageal reflux disease without esophagitis; Fecal urgency; Dysphagia, unspecified type Discharge Disposition: Home or Self Care Social History Tobacco Use Types Packs/Day Years Used Date Smoking Tobacco: Former Cigarettes 2 32 1 - 2016 Smokeless Tobacco: Never Comments:Started age [...] on file documented as of this encounter Medications at Time of Discharge adalimumab (Humira,CF, Pen) 80 mg/0.8 mL pen Inject 0.8 mL (80 mg total) under the skin every 14 (fourteen) days. 06/26/2023 albuterol HFA (PROAIR HFA ; PROVENTIL HFA ; VENTOLIN HFA) 90 mcg/actuation inhaler Inhale 2 Puffs into the lungs every 4 hours as needed for Cough or Wheezing. 09/28/2023 ARIPiprazole (ABILIFY) 2 mg tablet Take 1 tablet (2 mg total) by mouth 1 (one) time each day. 04/01/2024 aspirin 81 mg EC tablet Take 81 mg by mouth daily. 10/11/2021 atorvastatin (LIPITOR) 40 mg tablet Take 1 tablet (40 mg total) by mouth 1 (one) time each day. 01/04/2022 blood-glucose sensor ([employer] G6 Sensor) device Change sensor every 10 days. Box = Kit = EA 9 each 3 05/18/2024 buPROPion SR (WELLBUTRIN SR) 150 mg 12 hr tablet Take 150 mg by mouth 2 times daily. busPIRone (BUSPAR) 10 mg tablet Take 1 tablet (10 mg total) by mouth 2 (two) times a day. 07/28/2024 DULoxetine (CYMBALTA) [address] capsule 07/22/2024 esomeprazole (NexIUM) [address] capsule Take 1 capsule (40 mg total) by mouth 1 (one) time each day before breakfast. Do not open capsule. 30 each 11 08/05/2024 6 fluticasone propion-salmetero L (Advair HFA) 45-21 mcg/actuation inhaler Inhale 1 Puff into the lungs 2 times daily. 09/12/2021 fluticasone propionate (FLONASE) 50 mcg/actuation nasal spray 2 Sprays by Nasal route daily. 09/28/2023 freestyle 28 gauge lancets Check blood sugar once daily. 100 each 3 05/18/2024 5 FreeStyle Test test strip Check blood sugar once daily. 100 each 3 05/18/2024 5 gabapentin (NEURONTIN) 300 mg capsule Take 1 capsule (300 mg total) by mouth 2 (two) times a day. 60 capsule 2 08/01/2024 melatonin 5 mg tablet TAKE 1-2 TABLETS BY MOUTH AT BEDTIME DIRECTED 09/19/2021 metFORMIN XR (GLUCOPHAGE-XR) 500 mg 24 hr tablet Take 2 tablets (1,000 mg total) by mouth 2 (two) times a day. Do not crush, chew, or split. 120 each 11 06/23/2024 6 ondansetron (ZOFRAN) 4 mg tabletIndications :Diarrhea, unspecified type,Nausea,Gastr oesophageal reflux disease without esophagitis,Fecal urgency Take 1 tablet (4 mg total) by mouth 3 (three) times a day. 60 tablet 11 05/06/2024 tiotropium (Spiriva Respimat) 1.25 mcg/actuation inhalation spray Inhale 2 Puffs into the lungs daily. 01/03/2022 amLODIPine (NORVASC) 2.5 mg tablet 07/22/2024 5 doxycycline (MONODOX) 100 mg capsule Take 1 capsule (100 mg total) by mouth 1 (one) time each day. 03/13/2023 5 DULoxetine (CYMBALTA) [address] capsule Take 2 capsules (60 mg total) by mouth 2 (two) times a day. 60 MG in the A.M and 30 MG in the P.M. 5 isosorbide mononitrate (IMDUR) 30 mg 24 hr tablet Take 1 tablet (30 mg total) by mouth 1 (one) time each day in the morning. 05/20/2024 5 Lactobacillus acidophilus 500 million cell capsule Take 1 capsule by mouth 1 (one) time each day. 30 capsule 2 05/19/2024 5 loratadine (CLARITIN) 10 mg tablet Take 1 tablet (10 mg total) by mouth 1 (one) time each day. 30 tablet 2 05/19/2024 5 magnesium oxide (MAG-OX) 400 mg (241.3 elemental magnesium) tablet Take 1 tablet (400 mg total) by mouth 1 (one) time each day. 30 tablet 2 05/19/2024 5 omeprazole (PriLOSEC) [address] capsule Take 1 capsule (40 mg total) by mouth 2 (two) times a day before meals. On empty stomach, wait 30 minutes and then eat to activate medication-befo re breakfast and supper 60 each 06/20/2024 5 omeprazole OTC (PriLOSEC OTC) 20 mg EC tablet Take 1 tablet (20 mg total) by mouth 2 (two) times a day. Take on empty stomach, wait 30 minutes and then eat to activate medicine before breakfast and dinner 60 tablet 06/24/2024 5 pantoprazole (PROTONIX) 40 mg EC tablet Take 1 tablet (40 mg total) by mouth 2 (two) times a day. Take on empty stomach, wait 30 mins and then eat to activate the medication- before breakfast and supper 60 each 11 05/06/2024 documented as of this encounter Discharge Disposition Disposition Code Departure Means Destination Home or Self Care documented in this encounter Plan of Treatment Upcoming Encounters Date Type Department Care Team (Late st Contact Info) Description 09/14/2024 8:30 AM EDT Office Visit Orthopedic Surgery [facility] [address] [phone] Roel Pal, DPM [address] [address] 09/22/2024 11:00 AM EDT Appointment [facility] CT Scan [address] [place] [address] 10/05/2024 9:20 AM EDT Appointment Radiology Department - [address] [phone] 10/17/2024 3:30 PM EDT Appointment [facility] CT Scan [address] [place] [address] 10/27/2024 8:45 AM EDT Office Visit Adult Medicine South - [address] [phone] Didi Conner MD [address] [place] [address] 11/16/2024 8:30 AM EDT Office Visit Endocrinology - [address] [phone] Trini Montalvo PA [address] [place] [address] documented as of this encounter Procedures Procedure Name Priority Date/Time Associated Diagnosis Comments XR ESOPHAGRAM Routine 08/08/2024 9:59 AM EST Diarrhea, unspecified type Nausea Gastroesophageal reflux disease without esophagitis Fecal urgency Dysphagia, unspecified type documented in this encounter Results * XR Esophagram (08/08/2024 9:59 AM EST) Anatomical Region Laterality Modality Head and Neck Radiographic Deb ging 08/08/2024 10:3 6 AM EST Impressions 08/08/2024 11:13 AM EST 1. Small amount of deep laryngeal penetration without malika aspiration on rapid sequence swallowing of thin barium. 2. Moderate to severe esophageal dysmotility. 3. Question of mucosal thickening along the distal esophagus at the GE junction which may represent reflux esophagitis with lodging of 13 mm barium tablet within this area for duration of exam, suspicious for stricture. Recommend direct visualization with endoscopy. 4. Gastroesophageal reflux. -------- FINAL REPORT -------- Dictated By: Paulina Edwards Dictated Date: 08/08/2024 10:36 ET Assigned Physician: Adi العراقي Reviewed and Electronically Signed By: Adi العراقي Signed Date: 08/08/2024 11:13 ET Workstation ID: [id number] Transcribed By: Self Edit Transcribed Date: 08/08/2024 11:06 ET Resident/PA/SENIOR ASSET MANAGER: Paulina Edwards Narrative 08/08/2024 11:13 AM EST FINDINGS: Double contrast esophagram performed. COMPARISON: No prior esophagram imaging HISTORY: Patient is a 54-year-old female with history of dysphagia, globus sensation, painful swallowing. Inconclusive endoscopy due to esophageal debris. Deployment Technician radiographs: 1 view chest radiograph demonstrates cardiac and mediastinal contours within normal limits. Lungs are clear bilaterally. Costophrenic angles are sharp. A coronary stent is noted. Cholecystectomy clips are present. One view lateral soft tissue neck demonstrates no prevertebral soft tissue masses. Airway is widely patent. Osseous structures are overall unremarkable. Effervescent crystals were administered orally. Thick and thin barium were administered orally under fluoroscopic control. Pharyngoesophagram: Rapid sequence imaging of the hypopharynx during swallowing demonstrates prompt initiation of swallowing. There is normal soft palate elevation. There is a small amount of deep laryngeal penetration without evidence of malika aspiration. There is no residual in the vallecula nor in the piriform sinuses. Thoracic esophagus: There is moderate to severe esophageal dysmotility as demonstrated by slow transit of contrast down the esophagus, tertiary contractions visualized and limited peristaltic activity visualized with patient in the recumbent position. The proximal and mid esophagus demonstrates normal distensibility and mucosal pattern without evidence of ulceration or mass formation. The distal esophagus at the area of the GE junction demonstrates some thickening of mucosal folds which may represent reflux esophagitis. Additionally, patient was instructed to swallow 13 mm barium tablet which did become lodged within the area of the GE junction for duration of exam. Hiatal hernia: None Reflux: Small amounts of spontaneous gastroesophageal reflux visualized. DAP: 7.64 Gycm^2 Procedure Note Adi العراقي MD - 08/08/2024 FINDINGS: Double contrast esophagram performed. COMPARISON: No prior esophagram imaging HISTORY: Patient is a 54-year-old female with history of dysphagia, globussensation, painful swallowing. Inconclusive endoscopy due to esophagealdebris. Deployment Technician radiographs: 1 view chest radiograph demonstrates cardiac andmediastinal contours within normal limits. Lungs are clear bilaterally.Costophrenic angles are sharp. A coronary stent is noted. Cholecystectomyclips are present. One view lateral soft tissue neck demonstrates noprevertebral soft tissue masses. Airway is widely patent. Osseousstructures are overall unremarkable. Effervescent crystals were administered orally. Thick and thin barium wereadministered orally under fluoroscopic control. Pharyngoesophagram: Rapid sequence imaging of the hypopharynx duringswallowing demonstrates prompt initiation of swallowing. There is normalsoft palate elevation. There is a small amount of deep laryngealpenetration without evidence of malika aspiration. There is no residual inthe vallecula nor in the piriform sinuses. Thoracic esophagus: There is moderate to severe esophageal dysmotility asdemonstrated by slow transit of contrast down the esophagus, tertiarycontractions visualized and limited peristaltic activity visualized withpatient in the recumbent position. The proximal and mid esophagusdemonstrates normal distensibility and mucosal pattern without evidence ofulceration or mass formation. The distal esophagus at the area of the GEjunction demonstrates some thickening of mucosal folds which may representreflux esophagitis. Additionally, patient was instructed to swallow 13 mmbarium tablet which did become lodged within the area of the GE junctionfor duration of exam. Hiatal hernia: None Reflux: Small amounts of spontaneous gastroesophageal reflux visualized. DAP: 7.64 Gycm^2 IMPRESSION: 1. Small amount of deep laryngeal penetration without malika aspiration onrapid sequence swallowing of thin barium. 2. Moderate to severe esophageal dysmotility. 3. Question of mucosal thickening along the distal esophagus at the GEjunction which may represent reflux esophagitis with lodging of 13 mmbarium tablet within this area for duration of exam, suspicious forstricture. Recommend direct visualization with endoscopy. 4. Gastroesophageal reflux. -------- FINAL REPORT -------- Dictated By: Paulina Edwards Dictated Date: 08/08/2024 10:36 ET Assigned Physician: Adi العراقي Reviewed and Electronically Signed By: Adi العراقي Signed Date: 08/08/2024 11:13 ET Workstation ID: [id number] Transcribed By: Self Edit Transcribed Date: 08/08/2024 11:06 ET Resident/PA/SENIOR ASSET MANAGER: Paulina Edwards Thaddeus CASTILLO IMAyde FLUOROSCOPY PROCEDURES Kerri mosqueda Result documented in this encounter Visit Diagnoses Diagnosis Diarrhea, unspecified type Nausea Nausea alone Gastroesophageal reflux disease without esophagitis Esophageal reflux Fecal urgency Dysphagia, unspecified type documented in this encounter Administered Medications Inactive Administered Medications - up to 3 most recent administrations Medication Order MAR Action Action Date Dose Rate Site barium sulfate (E-Z-DISK) tablet 700 mg 700 mg, oral, Once in imaging, Starting on Thu08/08/24 at 0936, For 1 dose, Swallow whole with 1-2 swallows of water just prior to fluoroscopic examination. Given 08/08/2024 9:37 AM EST 700 mg barium sulfate (E-Z-HD) 98 % suspension 100 mL 100 mL, oral, Once in imaging, Starting on Thu08/08/24 at 0936, For 1 dose Given 08/08/2024 9:37 AM EST 100 mL barium sulfate (E-Z-PAQUE) 96 % (w/w) suspension 100 mL 100 mL, oral, Once in imaging, Starting on Thu08/08/24 at 0936, For 1 dose Given 08/08/2024 9:37 AM EST 100 mL documented in this encounter Additional Health Concerns Assessment Noted Time PHQ-9 Depression Total Score: 7 04/29/20 24 6:00 PM EST documented as of this encounter Care Teams Boiler Engineer Relationship Specialty Start Date End Date Didi Conner MD [address] [place] [address] PCP - General Internal Medicine 08/16/21 documented as of this encounter
--- OUTSIDE RECORDS SUMMARY | 2024-09-08 10:26 | XMS_ITS | Encounter Summary ---
Author Organization [facility] Address [address] [place] [address] Care Team Providers Care Md Senior Research Scientist Name Role Phone Didi Conner MD Primary Care Provider [phone] Reason for Visit * Reason Onset Date Comments provider call back 08/17/2024 Encounter Details Date Type Department Care Team ([facility] st Contact Info) Description 08/17/2024 Telephone Gastroenterology - [place] [address] [place] [phone] Thaddeus Christopher PA [address] [place] [address] provider call back Social History Tobacco Use Types Packs/Day Years [...] for your loved ones. For example, children's ministry director or elderly care for an older [...] of this encounter Progress Notes * Negin Olivera - 08/17/2024 10:26 AM EST Patient calling to inform thaddeus she is agreeing to have an EGD, she received a message from Thaddeus thru mychart to call office if she agrees documented in this encounter Plan of Treatment Upcoming Encounters Date Type Department Care Team (Late st Contact Info) Description 09/14/2024 8:30 AM EDT Office Visit Orthopedic Surgery [facility] [address] [phone] Roel Pal, DPM [address] [address] 09/22/2024 11:00 AM EDT Appointment [facility] CT Scan [address] [place] [address] 10/05/2024 9:20 AM EDT Appointment Radiology Department - [address] [phone] 10/17/2024 3:30 PM EDT Appointment [facility] CT Scan [address] [place] [address] 10/27/2024 8:45 AM EDT Office Visit Adult Medicine South - [address] [phone] Didi Conner MD [address] [place], [place] 11/16/2024 8:30 AM EDT Office Visit Endocrinology - [address] [phone] Trini Montalvo PA [address] [place] [address] documented as of this encounter Visit Diagnoses Not on filedocumented in this encounter Additional Health Concerns Assessment Noted Time PHQ-9 Depression Total Score: 7 04/29/20 24 6:00 PM EST documented as of this encounter Care Teams Md Senior Research Scientist Relationship Specialty Start Date End Date Didi Conner MD [address] [place] [address] PCP - General Internal Medicine 08/16/21 documented as of this encounter
--- OUTSIDE RECORDS SUMMARY | 2024-09-08 10:26 | XMS_ITS | Encounter Summary ---
Author Organization [facility] Address [address] [place] [address] Care Team Providers Care Bottle Inspector Name Role Phone Leti Ballesteros MD Primary Care Provider Unavail able Didi Conner MD Primary Care Provider [phone] Encounter Details Date Type Department Care Team Description 01/07/2019 Orders Only Adult Medicine [address] [id number] Leti Ballesteros MD Social History Tobacco Use [...] on filedocumented in this encounter Care Teams Bottle Inspector Relationship Specialty Start Date End Date Leti Ballesteros MD PCP - General Internal Medicine 04/28/18 08/15/21 Didi Conner MD [address] [place] [address] PCP - General Internal Medicine 08/16/21 documented as of this encounter
--- OUTSIDE RECORDS SUMMARY | 2024-09-08 10:26 | XMS_ITS | Patient Health Record ---
Author Organization [facility] Address [address] [place] [address] Care Team Providers Care Utility System Repairer Name Role Phone Holly Ramirez Unavailable [phone] Allergies Allergen (clinical drug ingredient) Drug/Non Drug Allergy documented on EMR Reaction Allergy Type Onset Date Status acetaminophen / oxycodone Percocet Itching Drug Allergy Active tramadol Tramadol HCl Nausea and Vomiting Drug Allergy Active Adhesive blistering Allergy Active Reason For Referral No Information Medications Medication SIG (Take, Route, Frequency, Duration) Notes Start Date End Date Status Gabapentin 300 MG 1 capsule Orally Onc e a day for 30 day(s) Active Pravastatin Sodium 20 MG 1 tablet Orally Once a day for 30 day(s) Active dilTIAZem HCl ER Beads 240 MG 1 capsule Orally Once a day for 30 day(s) Active Loratadine 10 MG 1 tablet Orally Once a day for 30 day(s) Active Advair HFA 115-21 MCG/ACT 2 puffs Inhalation Twice a day Active NovoLOG 100 UNIT/ML as directed Subcutaneous Active DULoxetine HCl 20 MG 1 capsule Orally Tw ice a day for 30 day(s) Active Ipratropium-Albuterol 0.5-2.5 (3) MG/3ML 3 ml as needed Inhalation every 6 hrs Active Victoza 18 MG/3ML as directed Subcutaneous Active Ammonium Lactate 12 % 1 application Exte rnally Twice a day Active Albuterol Sulfate 108 (90 Base) MCG/ACT 1 puff as needed Inhalation every 4 hrs Active Extra Depth Orthopedic Shoes (1 Pair) with Customized Heat Molded Multidensity Innersoles (3 Pair) as directed Dx: NIDDM/Polyneuropathy (E11.42), Hammertoe Foot Deformity (M20.41,M20.42), Preulcerative Skin Lesion(s) (L85.1 04/10/2021 Active ARIPiprazole 10 MG 1 tablet Orally Once a day for 30 day(s) Active buPROPion HCl ER (XL) 150 MG 1 tablet in the morning Orally Once a day for 30 day(s) Active Physical Therapy . . . 2-3x/week for 3- 4 weeks 12/07/2019 Active ASO Ankle/Foot Stablizing AFO As directed Wear Daily for as needed 12/07/2019 Active Custom Orthotics as directed 04/10/2021 Active Melatonin ER 10 MG as directed Orally Active Custom Orthotics as directed A ctive Ibuprofen 600 MG 1 tablet with food o r milk as needed Orally Three times a day Active Basaglar KwikPen 100 UNIT/ML as directed Subcutaneous Not -Taking Aspirin 325 MG 1 tablet Orally Once a day for 30 day(s) Active Walker as directed With whe els and seat 01/25/2020 Active Omeprazole 20 MG 1 capsule 30 minutes before morning meal Orally Once a day for 30 day(s) Active Lantus 100 UNIT/ML as directed Subcutaneous Active metFORMIN HCl 1000 MG 1 tablet with a me al Orally Once a day for 30 day(s) Active Immunizations Vaccine Route Administration Date Status Comme nts Influenza Unknown 01/25/2020 Refused Social History Tobacco Use: Social History Observation Description Date Details (start date - stop date) Never Smoker NA - NA Tobacco Use/Smoking Question Answer Notes Are you a: nonsmoker Additional Findings: Tobacco Non-User Current no n-smoker Tobacco use other than smoking: Question Answer Notes Are you an other tobacco user? No Problems Problem Type SNOMED Code ICD Code Onset Dates Problem Status W/U Status Risk Notes Problem 183191330 Hammer toe of ri ght foot (M20.41) Active confirmed Problem 232699297 Hammer toe of le ft foot (M20.42) Active confirmed Problem 43778817 Unstable gait (R26.81) Active confirmed Problem 120586619 Charcot foot due to diabetes mellitus (E11.610) Active confirmed Problem 84281234 Type 2 diabetes mellitus with polyneuropathy (E11.42) Active confirmed Problem 22799753 Type 2 diabetes mellitus with foot ulcer (E11.621) Active confirmed Problem 89423743 Non-pressure ulc er of left lower extremity with fat layer exposed (L97.922) Active confirmed Problem 139775194 Charcot's joint of right foot (M14.671) Active confirmed Problem 611424829 Charcot's joint of left foot (M14.672) Active confirmed Plan Of Treatment Pending Test Test Name Order Date X ray : Foot, left 3V 11/09/2019 X ray : Foot, left 3V 12/07/2019 X ray : Foot, left 3V 03/02/2020 X ray : Foot, right 3V 12/07/2019 X ray : Foot, right 3V 03/02/2020 Insurance Providers Payer Name Payer Address Payer Phone Subscriber Number Group Number Insured Name Patient Relationship to Insured Coverage Start Date Coverage End Date [facility] [employer] Claims [address] [place] [id number] Ciera Haas Self - patient is the insured Medical (General) History Medical History History ICD Code type II diabetes microalbuminuria Tobacco abuse Neuropathy Cervical radiculopathy Hiatal hernia Macular edema Reflux ( GERD) Obesity, morbid Hyperlipidemia asthma Anxiety depressive disorder Hypertension 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
--- OUTSIDE RECORDS SUMMARY | 2024-09-08 10:26 | XMS_ITS | Encounter Summary ---
Author Organization [facility] Address [address] [place] [address] Care Team Providers Care Mud Analysis Well Logging Operator Name Role Phone Didi Conner MD Primary Care Provider [phone] Reason for Visit * Reason Onset Date Comments DME Request 02/26/2023 Encounter Details Date Type Department Care Team Description 02/26/2023 Telephone [facility] [address] [address] Roel Pal DPM [address] [address] DME Request Social History Tobacco Use Types [...] suspected to have Coronavirus/COVID-19? No / Unsure 02/03/2023 8:45 AM EDT documented as of this encounter Miscellaneous Notes * Telephone Encounter - Emily Szymanskiart - 03/04/2023 3:34 PM EDT Patient is calling office inquiring on the status of her request for an Electric Scooter. Please advise. Patient can be reached at [phone]. Thanks. * Telephone Encounter - Emily M Jose - 02/26/2023 9:53 AM EDT It is for an Electric Scooter. * Telephone Encounter - Emily M Jose - 02/26/2023 9:00 AM EDT Received call from patient, she states she needs an order for a Scooter sent to the [facility], so she can be fitted to it? She states she has already spoken with someone at the [facility] and they need the order so she can make an appt. Please advise. Please call her back with any questions at [phone]. Thanks. documented in this encounter Plan of Treatment Not on file documented as of this encounter Procedures Procedure Name Priority Date/Time Associated Diagnosis Comments ELECTRIC SCOOTER Routine 03/04/2023 4:07 PM EDT Charcot's joint of left foot Charcot's joint of ankle, right Severe obesity (BMI 35.0-39.9) with comorbidity (HCC) Moderate persistent asthma without complication Type II diabetes mellitus with peripheral autonomic neuropathy (HCC) documented in this encounter Visit Diagnoses Diagnosis Severe obesity (BMI 35.0-39.9) with comorbidity (HCC)- Primary Charcot's joint of left foot Charcot's joint of ankle, right Moderate persistent asthma without complication Unspecified asthma Type II diabetes mellitus with peripheral autonomic neuropathy (HCC) Type II or unspecified type diabetes mellitus with neurological manifestations, not stated as uncontrolled documented in this encounter Care Teams Mud Analysis Well Logging Operator Relationship Specialty Start Date End Date Didi Conner MD [address] [place] [phone] PCP - General Internal Medicine 08/16/21 documented as of this encounter
--- OUTSIDE RECORDS SUMMARY | 2024-09-08 10:26 | XMS_ITS | Encounter Summary ---
Author Organization [facility] Address [address] [place] [address] Care Team Providers Care Executive Assistant To General Counsel Name Role Phone Didi Conner MD Primary Care Provider Reason for Visit * Reason Comments E-prescribe Rx Request Encounter Details Date Type Department Care Team Description 09/19/2022 Refill Adult Medicine [address] [phone] Maritza Uribe PA-C [address] [place] [address] [phone] E-prescribe Rx Request Social History Tobacco Use [...] on filedocumented in this encounter Care Teams Executive Assistant To General Counsel Relationship Specialty Start Date End Date Didi Conner MD [address] [place] [address] [phone] PCP - General Internal Medicine 08/16/21 documented as of this encounter
--- OUTSIDE RECORDS SUMMARY | 2024-09-08 10:26 | XMS_ITS | Encounter Summary ---
Author Organization [facility] [place] [facility] Address [address] [place] [address] Care Team Providers Care Signs Cleaner Name Role Phone Didi Conner MD Primary Care Provider [phone] Reason for Visit * Reason Comments E-prescribe Rx Request Encounter Details Date Type Department Care Team Description 02/06/2023 Refill Endocrinology - [place] [address] [place] [address] Trini Montalvo PA-C [address] [place] [address] E-prescribe Rx Request Social History Tobacco Use [...] encounter Miscellaneous Notes * Telephone Encounter - Tan Galeano - 02/06/2023 1:57 PM EDT Ariana 11/12/22 Ov 03/17/23 Lab Results Component Value Date HGBA1C 6.4 01/15/2023 MALBUR 42.3 01/15/2023 MALBCR 56.4 01/15/2023 CHOL 75 10/08/2022 LDL 16 10/08/2022 HDL 32 10/08/2022 TRIG 135 10/08/2022 GLU 93 10/08/2022 CREAT 0.76 10/08/2022 documented in this encounter Plan of Treatment Not on file documented as of this encounter Visit Diagnoses Diagnosis Type 2 diabetes mellitus with retinopathy of both eyes, with long-term current use of insulin, macular edema presence unspecified, unspecified retinopathy severity (HCC) documented in this encounter Care Teams Signs Cleaner Relationship Specialty Start Date End Date Didi Conner MD [address] [place] [id number] PCP - General Internal Medicine 08/16/21 documented as of this encounter
--- OUTSIDE RECORDS SUMMARY | 2024-09-08 10:26 | XMS_ITS | Encounter Summary ---
Author Organization [facility] Address [address] [place] [address] Care Team Providers Care Computer Operations Analyst Name Role Phone Didi Conner MD Primary Care Provider [phone] Encounter Details Date Type Department Care Team Description 09/12/2022 SCAN [facility] [address] [phone] Roel Pal DPM [address] [address] Social History Tobacco Use Types Packs/Day Years [...] on filedocumented in this encounter Care Teams Computer Operations Analyst Relationship Specialty Start Date End Date Didi Conner MD [address] [place] [address] [phone] PCP - General Internal Medicine 08/16/21 documented as of this encounter
--- OUTSIDE RECORDS SUMMARY | 2024-09-08 10:26 | XMS_ITS | Encounter Summary ---
Author Organization [facility] [place] [address] Care Team Providers Care Physician Relations Representative Name Role Phone Didi Conner MD Primary Care Provider [phone] Reason for Visit * Reason Onset Date Comments Med Refill 08/22/2024 Encounter Details Date Type Department Care Team ([facility] Contact Info) Description 08/22/2024 Telephone [place] [address] [place] [address] Trini Montalvo PA [address] [place] [address] Med Refill Social History Tobacco Use Types Packs/Day Years [...] for your loved ones. For example, child support case officer or elderly care for an older adult? [...] on file documented as of this encounter Ordered Prescriptions Prescription Sig Dispense Quantity Refills Last Filled Start Date End Date blood-glucose transmitter (Dexcom G6 Transmitter) device Change sensor every 3 months 1 each 3 08/23/2024 documented in this encounter Progress Notes * Alvaro Easley - 08/22/2024 11:39 AM EDT Refills on Current Medication List MED NAME: Continuous Glucose Transmitter (Dexcom G6 Transmitter) [facility] [place] [facility] [address] [place] [phone] Patient would like script to be: E-PRESCRIBED/FAXED TO PHARMACY BY THE END OF THE DAY One or some of the medications requested were on the HISTORICAL MED list Did you check the Pharmacy information above?: yes Patient wants: 30-day supply Is this a mail order prescription request?: no If the refill is from a FAXED refill request what is the RX # listed on the fax? not applicable Patients current insurance carrier is: Payor: [facility] MEDICARE / Plan: [facility] ONE CARE / Product Type: *No Product type* / Insurance ID #: @[id number]@ documented in this encounter Plan of Treatment Upcoming Encounters Date Type Department Care Team ([facility] st Contact Info) Description 09/14/2024 8:30 AM EDT Office Visit Orthopedic Surgery - [place] [address] [phone] Roel Pal, DPQuintin [address] [address] 09/22/2024 11:00 AM EDT Appointment [facility] CT Scan [address] [place] [address] 10/05/2024 9:20 AM EDT Appointment Radiology Department [address] [phone] 10/17/2024 3:30 PM EDT Appointment [facility] CT Scan [address] [place] [address] 10/27/2024 8:45 AM EDT Office Visit Adult Medicine [address] [phone] Didi Conner MD [address] [place] [address] 11/16/2024 8:30 AM EDT Office Visit Endocrinology [address] [phone] Trini Montalvo PA [address] [place] [address] documented as of this encounter Visit Diagnoses Not on filedocumented in this encounter Additional Health Concerns Assessment Noted Time PHQ-9 Depression Total Score: 7 04/29/20 24 6:00 PM EST documented as of this encounter Care Teams Physician Relations Representative Relationship Specialty Start Date End Date Didi Conner MD [address] [place] [address] PCP - General Internal Medicine 08/16/21 documented as of this encounter
--- OUTSIDE RECORDS SUMMARY | 2024-09-08 10:26 | XMS_ITS | Encounter Summary ---
Author Organization [facility] Address [address] [place] [address] Care Team Providers Care Dice Table Person Name Role Phone Didi Conner MD Primary Care Provider [phone] Encounter Details Date Type Department Care Team Description 10/31/2023 CGM Report Medical Records [address] [place] [address] Abstract, Provider Social History Tobacco Use Types [...] on filedocumented in this encounter Care Teams Dice Table Person Relationship Specialty Start Date End Date Didi Conner MD [address] [place] [address] [phone] PCP - General Internal Medicine 08/16/21 documented as of this encounter
--- OUTSIDE RECORDS SUMMARY | 2024-09-08 10:26 | XMS_ITS | Encounter Summary ---
Author Organization [facility] Address [address] [place] [address] Care Team Providers Care Sanitation Officer Name Role Phone Didi Conner MD Primary Care Provider [phone] Reason for Visit * Reason Onset Date Comments medication problems 07/18/2022 Encounter Details Date Type Department Care Team Description 07/18/2022 Telephone Endocrinology - [address] [address] Trini Montalvo PA-C [address] [place] [address] medication problems Social History Tobacco Use Types Packs/Day Years [...] suspected to have Coronavirus/COVID-19? No / Unsure 07/17/2022 8:31 AM EST documented as of this encounter Miscellaneous Notes * Telephone Encounter - Trini Montalvo PA-C - 07/18/2022 3:04 PM EST Sent to the pharmacy * Telephone Encounter - Carrol Cervantes - 07/18/2022 8:46 AM EST What is the name of the medication patient is having a problem with?: Trulicity 3mg/0.5ml What is the problem?: backordered only 1.5mg in stock Is the patient calling about the problem? NO If the patient is not the caller who is? Elenita albright.[phone] Is this a NEW medication?: NO How long has the patient been taking this medication? 02/28/22 Who prescribed this medication for the patient? Trini Montalvo Who is patients PCP?: Didi Conner Payor: [facility] / Plan: [facility] / Product Type: HMO [id number] documented in this encounter Plan of Treatment Not on file documented as of this encounter Visit Diagnoses Not on filedocumented in this encounter Care Teams Sanitation Officer Relationship Specialty Start Date End Date Didi Conner MD [address] [place] [address] PCP - General Internal Medicine 08/16/21 documented as of this encounter
--- OUTSIDE RECORDS SUMMARY | 2024-09-08 10:26 | XMS_ITS | Encounter Summary ---
Author Organization [facility] Address [address] [place] [address] Care Team Providers Care Grocery Store Clerk Name Role Phone Didi Conner MD Primary Care Provider [phone] Reason for Referral * Consultation (Routine) - Authorized Specialty Diagnoses / Procedures Referred By [employer] t Referred To Contact Plastic Surgery Diagnoses Excessive body weight loss Didi Conner MD [address] [place] [address] Phone: tel: fax: Huan Farah MD [address] [place] [address] [address] Phone: tel: fax: Referral ID Status Reason Start Date Expiration Date Visits Requested Visits Authorized [id number] Authorized Specialty Services Required 08/26/2024 08/26/2025 1 1 Reason for Visit * Reason Onset Date Comments Referral 08/26/2024 Encounter Details Date Type Department Care Team (Late st Contact Info) Description 08/26/2024 Telephone Adult Medicine [address] [phone] Didi Cnoner MD [address] [place] [address] Referral Social History Tobacco Use Types Packs/Day Years [...] as of this encounter Progress Notes * Mauro Argueta - 08/26/2024 10:35 AM EDT Referral Request: What insurance does the patient have today? [facility] MEDIC[facility] / Plan: [facility] ONE CARE / Product Type: *No Product type* / Referrals cannot be processed if the insurance is not accurate. If the insurance listed above in red is NO BILLING INFORMATION FOUND FOR THIS ENCOUTNER The patients correct insurance must be obtained and registered in [facility] or their referral can not be processed. Is this a retro request? no. If yes for what date of service do you need the retro referral? not applicable Who is calling to request this referral? Patient If the caller is not the patient, what is their name? not applicable Ask the patient WHO referred them to this specialty: Patient self referred FIRST and LAST NAME of SPECIALIST PATIENT is seeing: Not scheduled yet What specialty is this? Plastic Surgery DIAGNOSIS Patient is being seen for (Not a body part or a procedure): Excess skin removal - due to weight loss - lost over 100 lb Have you seen this SPECIALIST for this PROBLEM/DX before? If YES, when? No Have you checked REVIEW or the APPT DESK to see if this referral has already been done or has visits left? yes Is this visit: Initial Visit Address of Specialist: [address] [place] [address], [address] [place] [address] Phone # of Specialist: [phone] Fax #: (if applicable): [phone] Attention to tito Other fax # [phone] Does patient have an appointment scheduled?: no Date of appointment- (including a retro-request): Is this appointment related to: Not MVA, worker compensation, or surgery related documented in this encounter Plan of Treatment Upcoming Encounters Date Type Department Care Team (Late st Contact Info) Description 09/14/2024 8:30 AM EDT Office Visit Orthopedic Surgery [facility] [address] [phone] Roel Pal, DPM [address] [address] 09/22/2024 11:00 AM EDT Appointment [facility] CT Scan [address] [place] [address] 10/05/2024 9:20 AM EDT Appointment Radiology Department - [address] [phone] 10/17/2024 3:30 PM EDT Appointment [facility] CT Scan [address] [place] [address] 10/27/2024 8:45 AM EDT Office Visit Adult Medicine South - [address] [phone] Didi Conner MD [address] [place] [address] 11/16/2024 8:30 AM EDT Office Visit Endocrinology - [address] [phone] Trini Montalvo PA [address] [place] [address] Scheduled Referrals Name Type Priority Associated Diagnoses Order Schedule Ambulatory referral to Plastic Surgery Outpatient Referral Routine Excessive body weight loss 1 Occurrences starting 08/26/2024 until 08/26/2025 documented as of this encounter Visit Diagnoses Diagnosis Excessive body weight loss- Primary Loss of weight documented in this encounter Additional Health Concerns Assessment Noted Time PHQ-9 Depression Total Score: 7 04/29/20 24 6:00 PM EST documented as of this encounter Care Teams Grocery Store Clerk Relationship Specialty Start Date End Date Didi Conner MD [address] [place] [address] PCP - General Internal Medicine 08/16/21 documented as of this encounter
--- OUTSIDE RECORDS SUMMARY | 2024-09-08 10:26 | XMS_ITS | Encounter Summary ---
Author Organization [facility] Address [address] [place] [address] Care Team Providers Care Change Management Coordinator Name Role Phone Didi Conner MD Primary Care Provider [phone] Encounter Details Date Type Department Care Team ([facility] st Contact Info) Description 09/05/2024 Telephone Gastroenterology - [place] [address] [facility] [address] [place] [phone] Thaddeus Christopher PA [address] [place] [address] Social History Tobacco Use Types Packs/Day Years [...] care for your loved ones. For example, residential child care counselor or elderly care for an older adult? [...] encounter Progress Notes * JONATHAN Fregoso - 09/05/2024 12:38 PM EDT Please let me know if you are still having any diarrhea as we will order either Imodium or Lomotil to help with your bowel movements. Please let me know if we can order these medicines for you documented in this encounter Plan of Treatment Upcoming Encounters Date Type Department Care Team (Late st Contact Info) Description 09/14/2024 8:30 AM EDT Office Visit Orthopedic Surgery - [place] [address] [phone] Roel Pal, DPM [address] [address] 09/22/2024 11:00 AM EDT Appointment [facility] CT Scan [address] [place] [phone] 10/05/2024 9:20 AM EDT Appointment Radiology Department - [address] [phone] 10/17/2024 3:30 PM EDT Appointment [facility] CT Scan [address] [place] [phone] 10/27/2024 8:45 AM EDT Office Visit Adult Medicine South - [address] [phone] Didi Conner MD [address] [place] [address] 11/16/2024 8:30 AM EDT Office Visit Endocrinology - [address] [phone] Trini Montalvo PA [facility] [place] [address] documented as of this encounter Visit Diagnoses Not on filedocumented in this encounter Additional Health Concerns Assessment Noted Time PHQ-9 Depression Total Score: 7 04/29/20 24 6:00 PM EST documented as of this encounter Care Teams Change Management Coordinator Relationship Specialty Start Date End Date Didi Conner MD [address] [place] [address] PCP - General Internal Medicine 08/16/21 documented as of this encounter
--- OUTSIDE RECORDS SUMMARY | 2024-09-08 10:27 | XMS_ITS | Encounter Summary ---
Author Organization [facility] Address [address] [place] [address] Care Team Providers Care Lead Teller Name Role Phone Didi Conner MD Primary Care Provider [phone] Encounter Details Date Type Department Care Team Description 09/26/2023 Hospital Medical Records [address] [place] [address] Rehan Felipe Social History Tobacco Use Types Packs/Day Years [...] on filedocumented in this encounter Care Teams Lead Teller Relationship Specialty Start Date End Date Didi Conner MD [address] [place] [address] [phone] PCP - General Internal Medicine 08/16/21 documented as of this encounter
--- OUTSIDE RECORDS SUMMARY | 2024-09-08 10:27 | XMS_ITS | Encounter Summary ---
Author Organization [facility] Address [address] [place] [address] Care Team Providers Care Business Technology Teacher Name Role Phone Didi Conner MD Primary Care Provider [phone] Reason for Visit * Reason Onset Date Comments medication problems 10/23/2021 Encounter Details Date Type Department Care Team Description 10/23/2021 Telephone Endocrinology - [address] [address] Trini Montalvo PA-C [address] [place] [address] medication problems Social History Tobacco Use Types [...] suspected to have Coronavirus/COVID-19? No / Unsure 10/14/2021 9:45 AM EDT documented as of this encounter Miscellaneous Notes * Telephone Encounter - Trini Montalvo PA-C - 10/24/2021 4:33 PM EDT Message reviewed. Agree to stop glipizide. Call back if she continues with lows. * Telephone Encounter - Nat Cross M.A. - 10/23/2021 1:14 PM EDT Spoke to patient. Instructions given. If she still has issues she will call back. * Telephone Encounter - Alisha Treadwell - 10/23/2021 12:55 PM EDT Patient returning missed call from provider * Telephone Encounter - Ryan Helton MD - 10/23/2021 12:49 PM EDT Pt was called, no naswer. If she is taking glipizide/ then can stop that. If still sugars running low then cut down on insulin lantus by 5 units. Dont take humalog before going to bed. Take half of humalog before dinner for now. She can apprise her provider raegarding how numbers are doing. * Telephone Encounter - Alisha Treadwell - 10/23/2021 10:08 AM EDT Who is calling? The patient Name of the medication Lantus What is the specific problem or interaction? Patient has been taking 50 units of Lantus AM/PM. She had been having drops, so her Lantus was cut down to 35 units. With 35 units, she states she has been still having significant drops in her sugar overnight. If the patient is having a problem with taking the med - how long has the problem been going on? About a week. documented in this encounter Plan of Treatment Not on file documented as of this encounter Visit Diagnoses Not on filedocumented in this encounter Care Teams Business Technology Teacher Relationship Specialty Start Date End Date Didi Conner MD [address] [place] [address] PCP - General Internal Medicine 08/16/21 documented as of this encounter
--- OUTSIDE RECORDS SUMMARY | 2024-09-08 10:27 | XMS_ITS | Encounter Summary ---
Author Organization [facility] Address [address] [place] [address] Care Team Providers Care Movie Stunt Performer Name Role Phone Didi Conner MD Primary Care Provider [phone] Encounter Details Date Type Department Care Team ([facility] st Contact Info) Description 08/04/2024 Telephone Gastroenterology - [place] [address] [place] [id number] Thaddeus Christopher PA [address] [place] [address] Social History Tobacco Use Types Packs/Day Years [...] care for your loved ones. For example, assistant child care teacher or elderly care for an older adult? [...] Refills Last Filled Start Date End Date esomeprazole (NexIUM) [address] capsule Take 1 capsule (40 mg total) by mouth 1 (one) time each day before breakfast. Do not open capsule. 30 each 08/05/2024 documented in this encounter Progress Notes * Elaine Harris MA - 08/05/2024 2:25 PM EST Spoke with patient she is made aware to start the Nexium and see how that works * JONATHAN Fregoso - 08/05/2024 12:16 PM EST We can see if there is another medication besides the omeprazole that they might cover. * Jodi Solano MA - 08/04/2024 2:00 PM EST I attempted to complete a Prior Auth through Cover my meds. The message that was kicked back was asfollows: The medication you have requested is not covered by Medicare Part D Law. If you believe the medication is being used for a medically accepted or compendia supported indication approved by CMS, pleasecontact your patient's plan. Please advise on alternative to Prilosec OTC (omeprazole) for patient's dx of GERD. * Negin Olivera - 08/04/2024 12:23 PM EST Estella from [employer] calling checking on status of prior auth 07/22/2024, covermy meds shows the auth has not been sent to the insurance for prilosec otc , please advise documented in this encounter Plan of Treatment Upcoming Encounters Date Type Department Care Team (Late st Contact Info) Description 09/14/2024 8:30 AM EDT Office Visit Orthopedic Surgery - [place] [address] [place] [phone] Roel Pal, DPM [address] [address] 09/22/2024 11:00 AM EDT Appointment [facility] CT Scan [address] [place] [phone] 10/05/2024 9:20 AM EDT Appointment Radiology Department [address] [phone] 10/17/2024 3:30 PM EDT Appointment [facility] [address] Scan [address] [place] [phone] 10/27/2024 8:45 AM EDT Office Visit Adult Medicine [address] [phone] Didi Conner MD [address] [place] [address] 11/16/2024 8:30 AM EDT Office Visit Endocrinology [address] [phone] Trini Montalvo PA [address] [place] [address] documented as of this encounter Visit Diagnoses Not on filedocumented in this encounter Discontinued Medications Medication Sig Discontinue Reason Start Date End Da te famotidine (Pepcid) 20 mg tabletIndications:Diarrhe a, unspecified type,Nausea,Gastroesophag eal reflux disease without esophagitis,Fecal urgency Take 1 tablet (20 mg total) by mouth 2 (two) times a day. 05/06/2024 08/05/2024 documented as of this encounter Additional Health Concerns Assessment Noted Time PHQ-9 Depression Total Score: 7 04/29/20 24 6:00 PM EST documented as of this encounter Care Teams Movie Stunt Performer Relationship Specialty Start Date End Date Didi Conner MD [address] [place] [address] PCP - General Internal Medicine 08/16/21 documented as of this encounter
--- OUTSIDE RECORDS SUMMARY | 2024-09-08 10:27 | XMS_ITS | Encounter Summary ---
Author Organization [facility] Address [address] [place] [address] Care Team Providers Care Forging Operator Name Role Phone Didi Conner MD Primary Care Provider [phone] Encounter Details Date Type Department Care Team Description 07/16/2023 Telephone Endocrinology - [address] [address] Trini Montalvo PA-C [address] [place] [address] Social History Tobacco Use Types Packs/Day Years [...] encounter Miscellaneous Notes * Telephone Encounter - Nat Cross M.A. - 07/16/2023 10:49 AM EST Spoke to patient. She had already scheduled Abd Ultrasound for 07.17.23 @ 11:30am * Telephone Encounter - Trini Montalvo PA-C - 07/16/2023 8:49 AM EST I called patient to discuss her labs. If patient calls back and I am not available to talk to her please let her know that I ordered an abdominal ultrasound urgent. She has elevation in her liver enzymes and in her white blood cells. If possible transfer her to radiology afterwards which she can make an urgent appointment, and any worsening symptoms tell her to go to the ER documented in this encounter Plan of Treatment Not on file documented as of this encounter Visit Diagnoses Not on filedocumented in this encounter Care Teams Forging Operator Relationship Specialty Start Date End Date Didi Conner MD [address] [place] [address] PCP - General Internal Medicine 08/16/21 documented as of this encounter
--- OUTSIDE RECORDS SUMMARY | 2024-09-08 10:27 | XMS_ITS | Encounter Summary ---
Author Organization [facility] Address [address] [place] [address] Care Team Providers Care Waxer Name Role Phone Didi Conner MD Primary Care Provider [phone] Reason for Visit * Reason Onset Date Comments DME Request 10/31/2021 Encounter Details Date Type Department Care Team Description 10/31/2021 Telephone [facility] [address] [phone] Roel Pal DPM [address] [address] DME Request Social History Tobacco Use Types [...] encounter Miscellaneous Notes * Telephone Encounter - Roel Pal DPM - 11/20/2021 8:16 AM EDT All set thank you! * Telephone Encounter - Laure Renee - 11/15/2021 4:[address] Pal can you please write out an Rx for her so I can send out on Thursday? Thank you. * Telephone Encounter - Zandra Leach - 11/13/2021 2:10 PM EDT Ciera is calling inquring on the status of the shower chair that she requested * Telephone Encounter - Laure Renee - 11/01/2021 1:07 PM EDT Spoke with Ciera and let her know that you're currently out of the office and will send a message over to you regarding it. I did let her know [employer] has one for a fairly cheap emmanuel is she would like to go that route as well. * Telephone Encounter - Zandra Leach - 10/31/2021 1:46 PM EDT Ciera is calling stating she is still unable to bear weight on her left foot and has been using her mother shower chair but she has to return it today so Ciera would like to know is she could get ascript for a shower chair, would like a call back documented in this encounter Plan of Treatment Not on file documented as of this encounter Visit Diagnoses Not on filedocumented in this encounter Care Teams Waxer Relationship Specialty Start Date End Date Didi Conner MD [address] [place] [address] PCP - General Internal Medicine 08/16/21 documented as of this encounter
--- OUTSIDE RECORDS SUMMARY | 2024-09-08 10:27 | XMS_ITS | Encounter Summary ---
Author Organization [facility] Address [address] [place] [address] Care Team Providers Care Chenille Machine Operator Name Role Phone Didi Conner MD Primary Care Provider [phone] Reason for Visit * Reason Comments E-prescribe Rx Request Encounter Details Date Type Department Care Team Description 05/29/2023 Refill Endocrinology - [place] [address] [place] [address] Ryan Helton MD [address] [place] [address] E-prescribe Rx Request Social History Tobacco Use [...] (HCC) documented in this encounter Care Teams Chenille Machine Operator Relationship Specialty Start Date End Date Didi Conner MD [address] [place] [address] PCP - General Internal Medicine 08/16/21 documented as of this encounter
--- OUTSIDE RECORDS SUMMARY | 2024-09-08 10:27 | XMS_ITS | Encounter Summary ---
Author Organization [facility] Address [address] [place] [address] Care Team Providers Care Gypsum Calciner Name Role Phone Didi Conner MD Primary Care Provider [phone] Encounter Details Date Type Department Care Team Description 10/25/2021 SCAN [facility] [address] [phone] Roel Pal DPM [address] [address] Social History Tobacco Use Types Packs/Day Years [...] on filedocumented in this encounter Care Teams Gypsum Calciner Relationship Specialty Start Date End Date Didi Conner MD [address] [place] [address] PCP - General Internal Medicine 08/16/21 documented as of this encounter
--- OUTSIDE RECORDS SUMMARY | 2024-09-08 10:27 | XMS_ITS | Encounter Summary ---
Author Organization [facility] Address [address] [place] [address] Care Team Providers Care Logistics Team Leader Name Role Phone Leti Ballesteros MD Primary Care Provider Unavail able Didi Conner MD Primary Care Provider Reason for Visit * Reason Onset Date Comments [facility] Call 12/04/2020 Encounter Details Date Type Department Care Team Description 12/04/2020 Telephone Adult Medicine [address] [address] Leti Ballesteros MD [facility] Call Social History Tobacco Use Types Packs/Day Years [...] * Telephone Encounter - Meg Gale - 12/04/2020 1:13 PM EDT [facility] CALL Which [facility] office is calling? [facility] Full name of caller: mary The caller is A nurse Is the caller at the patients home?: NO Reason for call: seeing pt 1 time a week nursing and meds referred for p.t just an FYI Does caller need an urgent call back? NO Was CONTACT Telephone # obtained above?: YES Fax #: documented in this encounter Plan of Treatment Not on file documented as of this encounter Visit Diagnoses Not on filedocumented in this encounter Care Teams Logistics Team Leader Relationship Specialty Start Date End Date Leti Ballesteros MD PCP - General Internal Medicine 04/28/18 08/15/21 Didi Conner MD [address] [place] [address] PCP - General Internal Medicine 08/16/21 documented as of this encounter
--- OUTSIDE RECORDS SUMMARY | 2024-09-08 10:27 | XMS_ITS | Encounter Summary ---
Author Organization [facility] Address [address] [place] [address] Care Team Providers Care Game Moderator Name Role Phone Leti Ballesteros MD Primary Care Provider Unavail able Didi Conner MD Primary Care Provider [phone] Reason for Visit * Reason Onset Date Comments Provider Call Back 11/27/2020 Encounter Details Date Type Department Care Team Description 11/27/2020 Telephone Adult Medicine [address] [address] Leti Ballesteros MD Provider Call Back Social History Tobacco Use Types Packs/Day Years [...] Exposure Response Date Recorded In the last month, have you been in contact with someone who was confirmed or suspected to have Coronavirus / COVID-19? No / Unsure 10/31/2020 2:15 PM EDT documented as of this encounter Miscellaneous Notes * Telephone Encounter - Laura Moulton M.A. - 11/27/2020 3:50 PM EDT [facility] called the pt to set up next visit. * Telephone Encounter - Angela Palomino - 11/27/2020 1:59 PM EDT Pt returning call, stated someone called her earlier and left a message to call back. I dont see nothing on record, dont know who called her. documented in this encounter Plan of Treatment Not on file documented as of this encounter Visit Diagnoses Not on filedocumented in this encounter Care Teams Game Moderator Relationship Specialty Start Date End Date Leti Ballesteros MD PCP - General Internal Medicine 04/28/18 08/15/21 Didi Conner MD [address] [place] [address] PCP - General Internal Medicine 08/16/21 documented as of this encounter
--- OUTSIDE RECORDS SUMMARY | 2024-09-08 10:27 | XMS_ITS | Encounter Summary ---
Author Organization [facility] Address [address] [place] [address] Care Team Providers Care Deckhand Sponge Boat Name Role Phone Didi Conner MD Primary Care Provider [phone] Reason for Referral * Imaging - Closed Specialty Diagnoses / Procedures Referred By Wade george Referred To Contact Radiology Diagnoses Diarrhea, unspecified type Nausea Gastroesophageal reflux disease without esophagitis Fecal urgency Dysphagia, unspecified type Procedures XR Esophagram Thaddeus Christopher PA [address] [address] Phone: tel: fax: [facility] Scan [address] [place] [address] Phone: tel: Referral ID Status Reason Start Date Expiration Date Visits Re quested Visits Authorized [id number] Closed 07/21/2024 07/21/2025 1 1 Reason for Visit * Reason Comments Diarrhea Encounter Details Date Type Department Care Team ([facility] st Contact Info) Description 05/06/2024 9:00 AM EST Consult Gastroenterology - [facility] [address] [phone] Thaddeus Christopher PA [address] [address] Diarrhea, unspecified type (Primary Dx); Nausea; Gastroesophageal reflux disease without esophagitis; Fecal urgency; Dysphagia, unspecified type; Diabetes 1.5, managed as type 2 (CMS/HCC) Social History Tobacco Use Types Packs/Day Years Used Date Smoking Tobacco: Former Cigarettes Smokeless Tobacco: Never Comments:Started age 15; max [...] care for your loved ones. For example, attendant child activity or elderly care for an older adult? [...] Sign Reading Time Taken Comments Blood Pressure 110/70 05/06/2024 9:09 AM EST Pulse - - Temperature - - Respiratory Rate - - Oxygen Saturation - - Inhaled Oxygen Concentration - - Weight 92.3 kg (203 lb 6.4 oz) 05/06/2024 9:09 A M EST Height 160 cm (5' 3 ) 05/06/2024 9:09 AM EST Body Mass Index 36.03 05/06/2024 9:09 AM EST documented in this encounter Patient Instructions * Attachments The following attachments cannot be sent through Care Everywhere. * Diarrhea (Canadian) * Dysphagia Diet: General Info (Canadian) * Dysphagia: General Info (Canadian) * Swallowing: Exercises (Canadian) * VFSS: Videofluorographic Swallowing Study (Canadian) * Fecal Incontinence (Canadian) * Fecal Incontinence Diet (Canadian) * Acid-Reducing Medicines: General Info (Canadian) * GERD (Canadian) * Nausea and Vomiting (Canadian) * A1c (Canadian) documented in this encounter Ordered Prescriptions Prescription Sig Dispense Quantity Refills Last Filled Start Date End Date ondansetron (ZOFRAN) 4 mg tabletIndications: Diarrhea, unspecified type,Nausea,Gastro esophageal reflux disease without esophagitis,Fecal urgency Take 1 tablet (4 mg total) by mouth 3 (three) times a day. 60 tablet 11 05/06/2024 famotidine (Pepcid) 20 mg tabletIndications: Diarrhea, unspecified type,Nausea,Gastro esophageal reflux disease without esophagitis,Fecal urgency Take 1 tablet (20 mg total) by mouth 2 (two) times a day. 60 each 05/06/2024 5 pantoprazole (PROTONIX) 40 mg EC tablet Take 1 tablet (40 mg total) by mouth 2 (two) times a day. Take on empty stomach, wait 30 mins and then eat to activate the medication- before breakfast and supper 60 each 05/06/2024 5 documented in this encounter Progress Notes * JONATHAN Fregoso - 05/06/2024 9:00 AM EST Patient epigastric pain, nausea, GERD, diarrhea * JONATHAN Fregoso - 05/06/2024 9:00 AM EST CONSULT REQUEST: Ciera Haas is a 54 y.o. female referred by Didi Conner MD for evaluation of epigastric pain nausea, GERD, diarrhea Have received endoscopy and colonoscopy report from [facility] in [place]. The studies were performed on December 02, 2017 for the endoscopy and the colonoscopy was performed on April 12, 2018. The endoscopy was performed due to reflux. The findings were mild gastric re tention, small hiatal hernia and reflux. Patient has undergone a barium swallow which shows a moderate to severe esophageal dysmotility as well as question of mucosal thickening at the distal esophagus as a barium tablet was lodged during the study and an EGD was recommended. The colonoscopy was performed as a screening study. It was noted she had sigmoid diverticulosis andinternal hemorrhoids and recommended a 10-year follow-up. Studies to be scanned into patient's chart HPI: 54-year-old female seen for issues with epigastric pain, nausea,, gerd dysphagia as well as diarrhea. Patient is accompanied by her sister patient remarks that she has had issues with swallowing for a couple of years. Finds that the solids are more problematic than liquids. Patient also has gerd and taking omeprazole but not helpful and will switch to protonix twice dailyand will also add pepcid at bedtime due to frequent night time heartburn. Patient remarks that she does have nausea and has not been taking any medication and will also order zofran due to her nausea. Remarks that her worsening diarrhea has been over the last 3-4 months- states 5-6 loose watery movements and does have fecal urgency and occasional incontinence. There has not been any changes to medications or dietary intake to account for the loose stools. Patient to perform labs and stool studies and we will be in touch regarding use of medications for the diarrhea. Patient aware that she may contact office at any time with questions. ROS: GENERAL: No malaise, significant weight loss or fever HEENT: No changes in hearing or vision, nose bleeds or swallowing problems NECK: No lumps, goiter, pain or significant neck swelling RESPIRATORY: No cough, wheezing or shortness of breath CARDIOVASCULAR: No chest pain, leg swelling or palpitations GI: Positive for GERD, epigastric pain, nausea, diarrhea MUSCULOSKELETAL: No joint pain or swelling, back pain, or muscle pain. SKIN: No lesions, rash or itching The remainder of the review of systems is reviewed and negative. 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 Torres UPPER GASTROINTESTINAL ENDOSCOPY 11/2017 UPPER GI ENDOSCOPY/EXAM SOCIAL HISTORY: Social History Tobacco Use Smoking status: Former Types: Cigarettes Smokeless tobacco: Never Tobacco comments: Started age 15; max 2 PPD; quit 2016 Vaping Use Vaping status: Never Used Substance Use Topics Alcohol use: No Drug use: Yes Comment: holidays only FAMILY HISTORY: Family History Problem Relation Name Age of Onset Diabetes Mother Hypertension; lung cancer +smoker Leukemia Father 47 diabetes Coronary artery disease Sister x 2 bipolar, HTN Diabetes Brother x 1 HTN, HLD, bipolar Heart attack Maternal Grandmother ETOH abuse Other (MVA related ) Maternal Grandfather Family History is negative for colon, gastric, esophageal cancer in first and second degree relatives MEDICATIONS: Outpatient Medications Marked as Taking for the 05/06/24 encounter (Consult) with JONATHAN Fregoso Medication Sig Dispense Refill adalimumab (Humira,CF, Pen) 80 mg/0.8 mL pen albuterol HFA (PROAIR HFA ; PROVENTIL HFA ; VENTOLIN HFA) 90 mcg/actuation inhaler Inhale 2 Puffs into the lungs every 4 hours as needed for Cough or Wheezing. ARIPiprazole (ABILIFY) 2 mg tablet Take 1 tablet (2 mg total) by mouth 1 (one) time each day. aspirin 81 mg EC tablet Take 81 mg by mouth daily. atorvastatin (LIPITOR) 40 mg tablet blood-glucose sensor (RidePost G6 Sensor) device USE DIRECTED PER ADMIN INSTRUCTIONS. PLACE NEW SENSOR ON EVERY 10 DAYS. buPROPion SR (WELLBUTRIN SR) 150 mg 12 hr tablet Take 150 mg by mouth 2 times daily. clindamycin (CLEOCIN T) 1 % lotion doxycycline (MONODOX) 100 mg capsule DULoxetine (CYMBALTA) [address] capsule Take 1-2 Capsules by mouth 2 times daily. B.H. fluticasone propion-salmeteroL (Advair HFA) 45-21 mcg/actuation inhaler Inhale 1 Puff into the lungs 2 times daily. fluticasone propionate (FLONASE) 50 mcg/actuation nasal spray 2 Sprays by Nasal route daily. FREESTYLE LANCETS MISC Use to check blood sugar three times daily gabapentin (NEURONTIN) 300 mg capsule TAKE (1) CAPSULE BY MOUTH TWICE DAILY. Lactobacillus acidophilus 500 million cell capsule Take 1 capsule by mouth 1 (one) time each day. loratadine (CLARITIN) 10 mg tablet Take 1 tablet (10 mg total) by mouth 1 (one) time each day. magnesium oxide (MAG-OX) 400 mg (241.3 elemental magnesium) tablet TAKE 1 TABLET BY MOUTH DAILY. melatonin 5 mg tablet TAKE 1-2 TABLETS BY MOUTH AT BEDTIME DIRECTED metFORMIN (GLUCOPHAGE) 1,000 mg tablet Take 1 tablet (1,000 mg total) by mouth 2 (two) times a day. nystatin (MYCOSTATIN) 100,000 unit/gram powder Apply topically 2 times daily as needed. Under breasts and groin- DERM tiotropium (Spiriva Respimat) 1.25 mcg/actuation inhalation spray Inhale 2 Puffs into the lungs daily. [DISCONTINUED] omeprazole (PriLOSEC) [address] capsule TAKE (1) CAPSULE BY MOUTH TWICE DAILY. ALLERGIES: @ALL@ PHYSICAL EXAM: Visit Vitals BP 110/70 Ht 1.6 m (63 ) Wt 92.3 kg (203 lb 6.4 oz) BMI 36.03 kg/m?? Smoking Status Former BSA 1.95 m?? APPEARANCE: Alert and in no acute distress-patient is seated in wheelchair EYES: PERRLA, conjunctiva and sclera normal. NECK: Neck supple, no adenopathy HEART: RRR with normal S1 and S2, no murmurs appreciated LUNG: clear to auscultation LYMPH NODES: grossly normal ABDOMEN: Soft, nontender, normal active bowel sounds throughout, no organomegaly RECTAL: Exam deferred EXTREMITIES: Extremities warm and well perfused NEURO: Awake, alert and oriented x 3 SKIN: Skin color, texture, turgor normal. LABS: No results found for: WBC , HGB , HCT , MCV , PLT , NA , K , CL , CO2 , GLUCOSE , BUN , CREATININE , CALCIUM , PROT , ALBUMIN , BILITOT , AST , ALT , URICACID , PHOS , MG , ALKPHOS , EGFR No results found for: SEDRATE , CRP , IRON , FERRITIN , CDIFFTOX , HPYLORI , STOOLCX , LIPASE , APTT , PT , INR , CELIAC , TTGIGA , GLIADINIGA , OCCULTBLD , CALPROTECTIN IMAGING: ORTHO X-RAY FOOT (3 VIEWS) Right foot 3 views Stabilizing Charcot arthropathy no acute erosions or changes Left foot 3 views Stabilizing Charcot arthropathy no acute erosions or changes IMPRESSION: 1. Diarrhea, unspecified type 2. Nausea 3. Gastroesophageal reflux disease without esophagitis 4. Fecal urgency 5. Dysphagia, unspecified type 6. Diabetes 1.5, managed as type 2 ([facility]) PLAN: 1. GERD, dysphagia, nausea, diarrhea, fecal urgency, diabetes States that she has been having issues with heartburn for couple of years and has been taking omeprazole but states that she does not feel that that has been very helpful for her symptoms. Feels that the heartburn is also making it more difficult to swallow solids. We will switch her from omeprazole to Protonix to see if that makes any difference in her swallowing. Will also order a barium swallow to see if that gives us any answer to her issues of swallowing difficulty We will also order Zofran to see if that will help with the nausea that she is experiencing from the heartburn. Diarrhea and fecal urgency Patient states that she has been having issues with diarrhea and loose stools for several months. There has been no change in medications nor dietary intake. She states that usually the stool is watery or very loose and have suggested that she be scheduled for labs as well as stool studies and we will be in touch with her in regards to results. If results are normal then antidiarrhea medicine canbe considered. Patient states that her diabetes is well-controlled and is aware that that can also affect her bowels. Patient is aware to contact office with any questions or concerns Total time of today's encounter is 45 minutes in preparing to see the patient, reviewing labs, diagnostic studies as well as other provider notes, documenting in charting, creating an HPI, performinga medically appropriate exam, counseling patient at length in regards to dysphagia, GERD, nausea and passage of loose stools as well as prescribing medication. There was documentation in EMR after visit. None of which time was spent performing separately billable procedures or ancillary services. Many thanks for allowing us to participate in patient's care Orders Placed This Encounter Procedures Clostridium difficile toxin Gastrointestinal pathogens molecular study XR Esophagram CBC and differential Comprehensive metabolic panel C-reactive protein Calprotectin, stool Pancreatic elastase 1 XR ESOPHAGRAM JONATHAN Fregoso cc: Didi Conner MD Answers submitted by the patient for this visit: Abdominal Pain Questionnaire (Submitted on 05/05/2024) Chief Complaint: Abdominal pain Chronicity: chronic Onset: more than 1 month ago Onset quality: gradual Frequency: every several days Progression since onset: waxing and waning Pain location: LUQ Pain - numeric: 9/10 Pain quality: cramping Radiates to: LLQ anorexia: Yes arthralgias: Yes belching: Yes diarrhea: Yes flatus: Yes frequency: Yes headaches: Yes myalgias: Yes nausea: Yes weight loss: Yes vomiting: Yes Aggravated by: nothing, vomiting Relieved by: nothing, certain positions, vomiting Diagnostic workup: CT scan documented in this encounter Plan of Treatment Upcoming Encounters Date Type Department Care Team (Late st Contact Info) Description 09/14/2024 8:30 AM EDT Office Visit Orthopedic Surgery [place] [address] [phone] Roel Pal DPM [address] [address] 09/22/2024 11:[address] [facility] [address] Scan [address] [place] [address] 10/05/2024 9:20 AM EDT Appointment Radiology Department [address] [phone] 10/17/2024 3:[address] [facility] [address] Scan [address] [place] [address] 10/27/2024 8:45 AM EDT Office Visit Adult Medicine [facility] - [address] [phone] Didi Conner MD [address] [place] [address] 11/16/2024 8:30 AM EDT Office Visit Endocrinology - [address] [phone] Trini Montalvo PA [address] [place] [address] documented as of this encounter Results * XR Esophagram (08/08/2024 [...] Signed Date: 08/08/2024 11:13 ET Workstation ID: [id number] Transcribed By: Self Edit Transcribed Date: 08/08/2024 11:06 ET Resident/PA/LENDING ADVISOR: Paulina Edwards Narrative 08/08/2024 11:13 AM EST FINDINGS: Double contrast esophagram performed. COMPARISON: No prior esophagram imaging HISTORY: Patient is a 54-year-old female with history of dysphagia, globus sensation, painful swallowing. Inconclusive endoscopy due to esophageal debris. Interior Block Wirer radiographs: 1 view chest radiograph demonstrates cardiac [...] painful swallowing. Inconclusive endoscopy due to esophagealdebris. Interior Block Wirer radiographs: 1 view chest radiograph demonstrates cardiac [...] Signed Date: 08/08/2024 11:13 ET Workstation ID: [id number] Transcribed By: Self Edit Transcribed Date: 08/08/2024 11:06 ET Resident/PA/LENDING ADVISOR: Paulina Edwards us Thaddeus CASTILLO IMG FLUOROSCOPY PROCEDURES Kerri mosqueda Result * Pancreatic elastase 1 (05/16/2024 11:27 AM EST) Pancreatic Elastase 1 382.0 >200 mcg/g 05/19/2024 11:53 AM EST [facility] Comment: Adult and Pediatric Referance Ranges for Pancreatic Elastase-1: Normal: ? >200 mcg/g Moderate Pancreatic Insufficiency: ?100-200 mcg/g Severe Pancreatic Insufficiency: ?<100 mcg/g Test performed at [facility], [facility] [address] [place] ??[address] ? [phone] Crystal Carpio MD, PhD - Concert Or Lecture Hall Manager Stool Rectum structure / Unknown Non-blood Collection / Unknown 05/16/2024 11:27 AM EST 05/16/2024 11:27 AM EST [facility] CASTILL[facility] BODY FLUIDS AND STOOLS ORDE RABLES Final Result [facility] [address] [place] [address] * Calprotectin, stool (05/16/2024 11:27 AM EST) [facility] Calprotectin, Fecal 20.1 <50 mcg/g 05/19/2024 11:53 AM EST [facility] Comment: <50 mcg/g ?Normal 50 - 120 mcg/g ?? Borderline >120 mcg/g ? Abnormal Borderline results suggest repeat testing in 4 to 6 weeks. Test performed at [facility], [address] [place], [place] ??[address] ? [phone] Crystal Carpio MD, PhD - Concert Or Lecture Hall Manager Stool Rectum structure / Unknown Non-blood Collection / Unknown 05/16/2024 11:27 AM EST 05/16/2024 11:27 AM EST Thaddeus CASTILLO LAB BODY FLUIDS AND STOOLS ORDE RABLES Final Result Performing Organization Address City/[facility]/ZIP Co de Phone Number [facility] [address] [place] [address] * Gastrointestinal pathogens molecular study (05/16/2024 11:27 AM EST) [facility] Campylobacter Detection by PCR Not Detected Not Detected LAB MICROBIOLOGY METHOD 4 3:56 PM EST [facility] Plesiomonas shigelloides Detection by PCR Not Detected Not Detected LAB MICROBIOLOGY METHOD 4 3:56 PM EST [facility] Salmonella Detection by PCR Not Detected Not Detected LAB MICROBIOLOGY METHOD 4 3:56 PM EST [facility] Vibrio Detection by PCR Not Detected Not Detected LAB MICROBIOLOGY METHOD 4 3:56 PM EST [facility] Vibrio cholerae Detection by PCR Not Detected Not Detected LAB MICROBIOLOGY METHOD 4 3:56 PM [facility] Yersinia enterocolitica Detection by PCR Not Detected Not Detected LAB MICROBIOLOGY METHOD 4 3:56 PM [facility] Enteroaggregative E coli EAEC Detection by PCR Not Detected Not Detected LAB MICROBIOLOGY METHOD 4 3:56 PM [facility] Enteropathogenic E coli EPEC Detection Not Detected Not Detected LAB MICROBIOLOGY METHOD 4 3:56 PM [facility] Enterotoxigenic E coli ETEC LTST Detection Not Detected Not Detected LAB MICROBIOLOGY METHOD 4 3:56 PM [facility] Shiga-like toxin producing E coli STEC STX1 STX2 Det Not Detected Not Detected LAB MICROBIOLOGY METHOD 4 3:56 PM [facility] Shigella Enteroinvasive E coli EIEC Detection Not Detected Not Detected LAB MICROBIOLOGY METHOD 4 3:56 PM [facility] Cryptosporidium Detection by PCR Not Detected Not Detected LAB MICROBIOLOGY METHOD 4 3:56 PM [facility] Cyclospora cayetanensis Detection by PCR Not Detected Not Detected LAB MICROBIOLOGY METHOD 4 3:56 PM [facility] Entamoeba histolytica Detection by PCR Not Detected Not Detected LAB MICROBIOLOGY METHOD 4 3:56 PM [facility] Giardia lamblia Detection by PCR Not Detected Not Detected LAB MICROBIOLOGY METHOD 4 3:56 PM [facility] Adenovirus F 40 41 Detection by PCR Not Detected Not Detected LAB MICROBIOLOGY METHOD 4 3:56 PM [facility] Astrovirus Detection by PCR Not Detected Not Detected LAB MICROBIOLOGY METHOD 4 3:56 PM [facility] Norovirus GI GII Detection by PCR Not Detected Not Detected LAB MICROBIOLOGY METHOD 4 3:56 PM EST [facility] Sapovirus Detection by PCR Not Detected Not Detected LAB MICROBIOLOGY METHOD 4 3:56 PM EST [facility] Rotavirus A Detection by PCR Not Detected Not Detected LAB MICROBIOLOGY METHOD 4 3:56 PM EST [facility] Stool Rectum structure / Unknown Non-blood Collection / Unknown 05/16/2024 11:27 AM EST 05/16/2024 11:27 AM EST Narrative [facility] - 05/16/2024 3:56 PM EST PCR testing is much more sensitive than traditional techniques and allows for the detection of low numbers of stool pathogens. The clinical correlation of PCR results with the need for treatment and clinical outcomes has not been established. Therefore the results of PCR testing for stool pathogens must be taken into clinical context when making treatment decisions. This is a diagnostic test only, repeat testing for cure is not advised. You may consider infectious disease consult for additional guidance. ??Testing Performed by [employer] us Thaddeus CASTILLO LAB MICROBIOLOGY - GENERAL MARIALUISA MARTINEZ Final Result [facility] [address] [place] [address], [place] [phone] * Clostridium difficile toxin (05/16/2024 11:27 AM EST) Clostridium difficile GDH Antigen Negative Negative 05/16/2024 2:54 PM EST [facility] C difficile Toxins A+B, EIA Negative Negative 05/16/2024 2:54 PM EST [facility] Comment:NEGATIVE FOR TOXIN P RODUCING CLOSTRIDIOIDES DIFFICILE, NO ADDITIONAL TESTING IS NECESSARY. Stool Rectum structure / Unknown Non-blood Collection / Unknown 05/16/2024 11:27 AM EST 05/16/2024 11:27 AM EST us Thaddeus CASTILLO LAB MICROBIOLOGY - GENERAL ORDE RABLES Final Result Performing Organization Address [facility]/ZIP Co de Phone Number [facility] [address] [place] [address], * C-reactive protein (05/06/2024 9:53 AM EST) C-Reactive Protein <0.29 <=0.50 mg/dL LAB CHEMISTRY METHOD 05/06/2024 2:57 PM EST [facility] Blood Venous blood specimen / Unknown Venipuncture / Unknown 05/06/2024 9:53 AM EST 05/06/2024 9:53 AM EST Thaddeus CASTILLO LAB BLOOD ORDERABLES Final Resu lt Performing Organization Address [facility]/ZIP Co de Phone Number [facility] [address] [place] [address], documented in this encounter Visit Diagnoses Diagnosis Diarrhea, unspecified type- Primary Nausea Nausea alone Gastroesophageal reflux disease without esophagitis Esophageal reflux Fecal urgency Dysphagia, unspecified type Diabetes 1.5, managed as type 2 ([facility]) Diarrhea, unspecified type Nausea Nausea alone Gastroesophageal reflux disease without esophagitis Esophageal reflux Fecal urgency Dysphagia, unspecified type documented in this encounter Discontinued Medications Medication Sig Discontinue Reason Start Date End Da te omeprazole (PriLOSEC) [address] capsule TAKE (1) CAPSULE BY MOUTH TWICE DAILY. 03/18/2024 05/06/2024 documented as of this encounter Orders Lab Orders Without Results Count Last Ordered D ate First Ordered Date COMPREHENSIVE METABOLIC PANEL 1 05/06/2024 documented in this encounter Additional Health Concerns Infection Onset Date Last Indicated Resolved Time C. Diff Rule-Out Infection 05/16/2024 05/16/2024 1 07/17/2023 2:54 PM EST Gastrointestinal Rule-Out 05/16/2024 05/16/2024 3:56 PM EST Assessment Noted Time PHQ-9 Depression Total Score: 7 04/29/20 24 6:00 PM EST documented as of this encounter Care Teams Deckhand Sponge Boat Relationship Specialty Start Date End Date Didi Conner MD [address] [place] [address] PCP - General Internal Medicine 08/16/21 documented as of this encounter
--- OUTSIDE RECORDS SUMMARY | 2024-09-08 10:27 | XMS_ITS | Encounter Summary ---
Author Organization [facility] Address [address] [place] [address] Care Team Providers Care Virology Teacher Name Role Phone Didi Conner MD Primary Care Provider [phone] Reason for Visit * Reason Comments E-prescribe Rx Request Encounter Details Date Type Department Care Team Description 10/28/2021 Refill Adult Medicine [address] [id number] Didi Conner MD [address] [place] [address] [id number] E-prescribe Rx Request Social History Tobacco Use [...] encounter Miscellaneous Notes * Telephone Encounter - Anni Busch - 11/13/2021 3:19 PM EDT Ariana 10/10/21 Ov 01/14/22 Lab Results Component Value Date HGBA1C 6.7 09/23/2021 MALBUR 38.6 01/06/2019 MALBCR 22.4 01/06/2019 CHOL 195 10/31/2020 LDL 103 10/31/2020 HDL 71 10/31/2020 TRIG 108 10/31/2020 GLU 158 09/25/2021 CREAT 0.98 09/23/2021 Lab Results Component Value Date NA 139 09/23/2021 K 4.8 09/23/2021 CO2 26 09/23/2021 CL 105 09/23/2021 BUN 28 09/23/2021 CREAT 0.98 09/23/2021 GLU 158 09/25/2021 CA 9.3 09/23/2021 GFR 59 09/23/2021 * Telephone Encounter - Ileana Westbrook - 11/13/2021 2:53 PM EDT Pt scheduled 01/14/2022 with Holly Olivarez * Telephone Encounter - Fabiana Maldonado - 10/30/2021 10:37 AM EDT Patient would like script to be: E-PRESCRIBED/FAXED TO PHARMACY WHEN WAS THE PATIENT'S LAST APPOINTMENT IN ADULT MEDICINE? 10/10/2021 WHEN WAS THE LAST TIME THE PATIENT SAW THEIR PCP? Same as above Does patient have an upcoming appointment? Yes left msg (THE MEDICATION REQUESTED IS ON THE MED LIST ABOVE) All of the medications requested were on the CURRENT MEDS list Did you check the Pharmacy information above?: YES Patient wants: 30 -day supply Is this a mail order prescription request ? NO If the refill is from a FAXED refill request what is the RX # listed on the fax? N/A Patients current insurance carrier is: Payor: [employer] [facility] M[employer] / Plan: [facility] / Product Type: HMO [id number] documented in this encounter Plan of Treatment Not on file documented as of this encounter Visit Diagnoses Diagnosis Type 2 diabetes mellitus with chronic kidney disease, with long-term current use of insulin, unspecified CKD stage (HCC) documented in this encounter Care Teams Virology Teacher Relationship Specialty Start Date End Date Didi Conner MD [address] [place] [id number] PCP - General Internal Medicine 08/16/21 documented as of this encounter
--- OUTSIDE RECORDS SUMMARY | 2024-09-08 10:27 | XMS_ITS | Encounter Summary ---
Author Organization [facility] Address [address] [place] [address] Care Team Providers Care Oil Rigger Name Role Phone Didi Conner MD Primary Care Provider [phone] Reason for Visit * Reason Comments E-prescribe Rx Request Encounter Details Date Type Department Care Team Description 10/16/2023 Refill Endocrinology - [place] [address] [place] [address] Trini Montalvo PA-C [address] [place] [address] E-prescribe Rx Request Social History Tobacco Use [...] encounter Miscellaneous Notes * Telephone Encounter - Alicia Hebert M.A. - 10/16/2023 4:22 PM EDT Ariana 07/15/23 Ov 11/13/23 Lab Results Component Value Date HGBA1C 6.1 07/15/2023 MALBUR 55.2 09/28/2023 MALBCR 33.4 09/28/2023 CHOL 110 07/15/2023 LDL 22 07/15/2023 HDL 67 07/15/2023 TRIG 105 07/15/2023 GLU 201 09/28/2023 CREAT 0.89 09/28/2023 documented in this encounter Plan of Treatment Not on file documented as of this encounter Visit Diagnoses Diagnosis Type 2 diabetes mellitus with retinopathy of both eyes, with long-term current use of insulin, macular edema presence unspecified, unspecified retinopathy severity (HCC) documented in this encounter Care Teams Oil Rigger Relationship Specialty Start Date End Date Didi Conner MD [address] [place] [id number] PCP - General Internal Medicine 08/16/21 documented as of this encounter
--- OUTSIDE RECORDS SUMMARY | 2024-09-08 10:27 | XMS_ITS | Encounter Summary ---
Author Organization [facility] Address [address] [place] [address] Care Team Providers Care Straddle Bug Operator Name Role Phone Didi Conner MD Primary Care Provider [phone] Reason for Visit * Reason Comments E-prescribe Rx Request Encounter Details Date Type Department Care Team Description 07/24/2023 Refill Endocrinology - [place] [address] [place] [address] Ryan Helton MD [address] [place] [address] E-prescribe Rx Request Social History Tobacco Use [...] (HCC) documented in this encounter Care Teams Straddle Bug Operator Relationship Specialty Start Date End Date Didi Conner MD [address] [place] [id number] PCP - General Internal Medicine 08/16/21 documented as of this encounter
--- OUTSIDE RECORDS SUMMARY | 2024-09-08 10:27 | XMS_ITS | Encounter Summary ---
Author Organization [facility] Address [address] [place] [address] Care Team Providers Care Research Program Assistant Name Role Phone Didi Conner MD Primary Care Provider [phone] Reason for Visit * Reason Comments E-prescribe Rx Request Encounter Details Date Type Department Care Team Description 06/05/2023 Refill Endocrinology - [address] [phone] Trini Montalvo PA-C [address] [place] [id number] E-prescribe Rx Request Social History Tobacco Use [...] (HCC) documented in this encounter Care Teams Research Program Assistant Relationship Specialty Start Date End Date Didi Conner MD [address] [place] [id number] PCP - General Internal Medicine 08/16/21 documented as of this encounter
--- OUTSIDE RECORDS SUMMARY | 2024-09-08 10:27 | XMS_ITS | Clinical Summary ---
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 Active albuterol HFA (PROAIR HFA ; PROVENTIL HFA ; VENTOLIN HFA) 90 mcg/actuation inhaler Inhale 2 Puffs into the lungs every 4 hours as needed for Cough or Wheezing. Active adalimumab (Humira,CF, Pen) 80 mg/0.8 mL pen Inject 0.8 mL (80 mg total) under the skin every 14 (fourteen) days. Active atorvastatin (LIPITOR) 40 mg tablet Take 1 tablet (40 mg total) by mouth 1 (one) time each day. Active tiotropium (Spiriva Respimat) 1.25 mcg/actuation inhalation spray Inhale 2 Puffs into the lungs daily. Active aspirin 81 mg EC tablet Take 81 mg by mouth daily. Active fluticasone propion-salmet Natan (Advair HFA) 45-21 mcg/actuation inhaler Inhale 1 Puff into the lungs 2 times daily. Active buPROPion SR (WELLBUTRIN SR) 150 mg 12 hr tablet Take 150 mg by mouth 2 times daily. Active melatonin 5 mg tablet TAKE 1-2 TABLETS BY MOUTH AT BEDTIME DIRECTED Active ARIPiprazole (ABILIFY) 2 mg tablet Take 1 tablet (2 mg total) by mouth 1 (one) time each day. Active ondansetron (ZOFRAN) 4 mg tabletIndicati ons:Diarrhea, unspecified type,Nausea,Ga stroesophageal reflux disease without esophagitis,Fe tavon urgency Take 1 tablet (4 mg total) by mouth 3 (three) times a day. 60 tablet 11 Active FreeStyle Test test strip Check blood sugar once daily. 100 each 3 024 2024 Active freestyle 28 gauge lancets Check blood sugar once daily. 100 each 3 024 2024 Active blood-glucose sensor (Cloud Sherpas G6 Sensor) device Change sensor every 10 days. Box = Kit = EA 9 each 3 Active metFORMIN XR (GLUCOPHAGE-XR ) 500 mg 24 hr tablet Take 2 tablets (1,000 mg total) by mouth 2 (two) times a day. Do not crush, chew, or split. 120 each 025 2025 Active gabapentin (NEURONTIN) 300 mg capsule Take 1 capsule (300 mg total) by mouth 2 (two) times a day. 60 capsule 2 Active esomeprazole (NexIUM) [address] capsule Take 1 capsule (40 mg total) by mouth 1 (one) time each day before breakfast. Do not open capsule. 30 each 025 2025 Active magnesium oxide (MAG-OX) 400 mg (241.3 elemental magnesium) tablet Take 1 tablet (400 mg total) by mouth 1 (one) time each day. 30 tablet 2 Active Lactobacillus acidophilus 500 million cell capsule Take 1 capsule by mouth 1 (one) time each day. 30 capsule 2 Active loratadine (CLARITIN) 10 mg tablet Take 1 tablet (10 mg total) by mouth 1 (one) time each day. 30 tablet 2 025 Active busPIRone (BUSPAR) 10 mg tablet Take 1 tablet (10 mg total) by mouth 2 (two) times a day. 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 60 MG in the A.M and 30 MG in the P.M. 2024 Discontinued(D uplicate order) doxycycline (MONODOX) 100 mg capsule Take 1 capsule (100 mg total) by mouth 1 (one) time each day. 023 2024 Discontinued(T herapy completed) pantoprazole (PROTONIX) 40 mg EC tablet Take 1 tablet (40 mg total) by mouth 2 (two) times a day. Take on empty stomach, wait 30 mins and then eat to activate the medication- before breakfast and supper 60 each 024 2024 Discontinued(P atient Discharge) magnesium oxide (MAG-OX) 400 mg (241.3 elemental magnesium) tablet Take 1 tablet (400 mg total) by mouth 1 (one) time each day. 30 tablet 2 024 2024 Discontinued(R eorder) Lactobacillus acidophilus 500 million cell capsule Take 1 capsule by mouth 1 (one) time each day. 30 capsule 2 024 2024 Discontinued(R eorder) loratadine (CLARITIN) 10 mg tablet Take 1 tablet (10 mg total) by mouth 1 (one) time each day. 30 tablet 2 024 2024 Discontinued(R eorder) omeprazole (PriLOSEC) [address] capsule Take 1 capsule (40 mg total) by mouth 2 (two) times a day before meals. On empty stomach, wait 30 minutes and then eat to activate medication-before breakfast and supper 60 each 025 2024 Discontinued(F ormulary change) omeprazole OTC (PriLOSEC OTC) 20 mg EC tablet Take 1 tablet (20 mg total) by mouth 2 (two) times a day. Take on empty stomach, wait 30 minutes and then eat to activate medicine before breakfast and dinner 60 tablet 2024 Discontinued(P atient Discharge) isosorbide mononitrate (IMDUR) 30 mg 24 hr tablet Take 1 tablet (30 mg total) by mouth 1 (one) time each day in the morning. 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 2 mL 025 2024 Discontinued Active Problems Problem Noted Date Diagnosed Date Orthostatic hypotension 04/29/2024 Fatty liver 09/28/2023 Cataract of both eyes 02/10/2022 CAD (coronary artery disease) 01/15/2022 Overview (04/06/2024): with 4 stents placed (10/11/21, [facility]) NSTEMI 11/05 - cath showed open grafts no culprit lesion CHF (congestive heart failure) 09/23/2021 Charcot's joint arthropathy in type 2 diabetes m harjinder 06/11/2021 Overview (04/06/2024): Dr. 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 Severe obesity (BMI 35.0-39.9) with comorbidity 05/17/2018 Anxiety 05/24/2012 Asthma 05/24/2012 Hyperlipidemia 05/24/2012 Major depressive disorder 05/24/2012 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 05/24/2012 Encounters Date Type Department Care Team Description 09/05/[address] [facility] 175 [facility] [address] [phone] Thaddeus Christopher PA 09/05/[address] 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 175 [facility] [address] [phone] Thaddeus Christopher PA 08/25/[address] [facility] 175 [facility] [address] [phone] Thaddeus Christopher PA 08/22/2024 Telephone [facility] [address] [place], [place] [phone] Trini Montalvo PA Med Refill 08/19/[address] [phone] Trini Montalvo PA Medication 08/17[facility]24 [facility] [address] [phone] Thaddeus Christopher PA 08/17/[address] [facility] [address] [phone] Thaddeus Christopher PA provider call back 08/08/2024 9:18 AM EST - 08/08/2024 11:59 PM EST Hospital Encounter [facility] Xray [address] [place] [phone] Diarrhea, unspecified type; Nausea; Gastroesophageal reflux disease without esophagitis; Fecal urgency; Dysphagia, unspecified type Discharge Disposition: Home or Self Care 08/04/[address] [facility] 175 [facility] [address] [phone] Thaddeus Christopher PA 07/22/[address] [facility] [address] [phone] Thaddeus Christopher PA Prior Authorization 07/22/2024 Telephone Lung Screening Program - [place] [address] [phone] Lesley Jacobs [place] Results (Suspicious Findings) 07/20/2024 10:00 AM EST - 07/20/2024 11:59 PM EST Hospital Encounter [facility] CT Scan [address] [place] [phone] Encounter for screening for lung cancer; History of tobacco use Discharge Disposition: Home or Self Care 07/20/2024 9:30 AM EST Office Visit Lung Screening Program - [place] 299 [facility] [address] [place] [phone] Roel Morales PA Encounter for screening for malignant neoplasm of lung in former smoker who quit in past 15 years with 30 pack year history or greater (Primary Dx); Tobacco use 07/15/2024 Telephone Adult Medicine [address] [phone] Didi Conner MD 07/15/2024 Telephone Adult Medicine [address] [phone] Didi Conner MD weight managment 06/28/2024 8:00 AM EST Office Visit Adult [address] [phone] Holly Olivarez PA Gastroesophageal reflux disease, unspecified whether esophagitis present (Primary Dx) 06/24/[address] [facility] [address] [phone] Thaddeus Christopher PA 06/23/2024 Telephone Adult Medicine [address] [phone] Didi Conner MD Hospital Follow-up 06/23/2024 Telephone Endocrinology [address] [phone] Trini Montalvo PA Medication Problem 06/20/[address] [facility] [address] [place] [phone] Thaddeus Christopher PA 06/20/[address] [facility] 175 [facility] 175 [facility] [address] [place] [phone] Thaddeus Christopher PA 06/20/2024 Telephone Endocrinology [address] [phone] Trini Montalvo PA Medication Problem 06/20/[address] [facility] 175 [facility] 175 [facility] [address] [place] [address] Thaddeus Christopher PA Medication Problem 06/16/2024 8:15 AM EST Office Visit Orthopedic Surgery - [place] 250 175 [facility] 250 [place] [phone] Roel Pal, DPM Acquired hammer toe of right foot (Primary Dx); Hammer toe of left foot; Dermatophytosis of nail; Pain in toe of right foot; Pain in toe of left foot; Diabetic mononeuropathy simplex (CMS/HCC); Ankle instability, unspecified laterality; Charcot joint of left foot; Charcot's joint of ankle, right 06/13/2024 Telephone Adult Medicine [address] [phone] Didi Conner MD provider call back from Last 3 Months Immunizations Name Administration Dates Next Due Hepatitis B (Vavtluq-Z-Vrgsf , Recombivax HB-Adult) 19yo and older 06/15/1994 Influenza Quadravalent, MDCK , 0.5ml, preservative free (Flucelvax) 6mo and older 03/23/2023,04/02/2022,08/16/2018,03/03 Influenza Quadrivalent, 0.5m l, preservative free (Fluarix; FluLaval; Fluzone) ages 6mo and older (Afluria) 3yo and older 02/20/2016 Influenza trivalent, MDCK, 0 .5mL, preservative free (Flucelvax) 6mo and older 04/29/2024 Influenza trivalent, with pr eservative (Fluzone; Afluria) 6mo and older 03/23/2014 Pneumococcal conjugate 20 va lent (Prevnar 20, PCV 20) 2mo and older 04/29/2024 Pneumococcal polysaccharide 23 valent (Pneumovax 23) 2yo and older 09/19/2015,04/15/2004 Td Tetanus diptheria (Tdvax) 7yo and older 03/12/2013,03/15/2006 Td Tetanus diptheria, preser vative free (Tenivac) 7yo and older 03/15/2006 Tdap Tetanus diptheria acell ular pertussis (Boostrix; Adacel) 7yo and older 08/16/2018 Surgical History Surgery Date Site/Laterality Comments CHOLECYSTECTOMY SECTION x3 CYST REMOVAL pilonidal HERNIA REPAIR 06/15/2004 - 06/14/2005 Spigelian hernia repair with mesh, repaired twice OOPHORECTOMY 06/15/1992 - 06/14/1993 Left ?right - per patient COLONOSCOPY 04/12/2018 UPPER GASTROINTESTINAL ENDOSCOPY 11/13/2017 - 12/12/2017 UPPER GI ENDOSCOPY/EXAM STENT PLACEMENT 06/15/2022 - 06/14/2023 coronary stent x4; Dr. Torres Medical History Medical History Date Comments GERD (gastroesophageal reflux disease) 8 DX:GERD (gastroesophageal reflux disease) Hidradenitis suppurativa 05/17/2018 DX:Hidr adenitis suppurativa Morbid obesity with BMI of 4 5.0-49.9, adult ([facility]) 05/17/2018 DX:Morbid obesity with BMI o f 45.0-49.9, adult ([facility]) Asthma 05/24/2012 DX:Asthma Anxiety 05/24/2012 DX:Anxiety Bilateral diabetic retinopat hy ([facility]) 06/02/2018 DX:Bilateral diabetic retino constantine ([facility]) 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 DX:Co ngenital anomaly of lung Essential (primary) hypertension 06/02/2018 DX:Essential (primary) hypertension Hyperlipidemia 05/24/2012 DX:Hyperlipidemi a Macular edema 06/02/2018 DX:Macular edema Major depressive disorder 05/24/2012 DX:Christopher or depressive disorder 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 ([facility]) 05/24/2012 DX: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 ([facility]) Verruca vulgaris 06/02/2018 DX:Verruca vulg nan Diverticulosis 06/04/2018 DX:Diverticulosi s Cervical radiculopathy 08/05/2018 DX:Cervic al radiculopathy Tobacco abuse 08/16/2018 DX:Tobacco abuse 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 ([facility]) 08/16/2018 DX:Type II diabetes mellitus with peripheral autonomic neuropathy ([facility]) Closed fracture of tarsal an d metatarsal bones of right foot 10/12/2018 DX:Closed fracture of t arsal and metatarsal bones of right foot Closed displaced fracture of navicular bone of right foot 10/12/2018 DX:Closed displaced fracture of navicular bone of right foot Type 2 diabetes with nephrop athy ([facility]) 01/07/2019 DX:Type 2 diabetes with neph ropathy ([facility]) Microalbuminuria 01/07/2019 DX:Microalbumin uria Charcot's joint arthropathy in type 2 diabetes mellitus ([facility]) 06/11/2021 DX:Charcot's joint arthrop athy in type 2 diabetes mellitus ([facility]); COMMENT: Dr. Pal Dependence on supplemental oxygen 07/18/2021 DX:Dependence on supplemental oxygen; COMMENT: To maintain O2 saturation above 90% CHF (congestive heart failur e) ([facility]) 09/23/2021 DX:CHF (congestive heart purvi lure) ([facility]) Fatty liver 09/28/2023 DX:Fatty liver Family History Medical History Relation Name Comments Diabetes Brother x 1 HTN, HLD, bipol ar Leukemia Father diabetes MVA related Maternal Grandfather Heart attack Maternal Grandmother ETOH ab use Diabetes Mother Hypertension; l dylan cancer +smoker Coronary artery disease Sister x 2 bipo lar, HTN Relation Name Status Comments Brother x 1 Alive Father Maternal Grandfather Maternal Grandmother Mother Paternal Grandfather unknown Paternal Grandmother Sister x 2 Alive Social History Tobacco Use Types Packs/Day Years [...] for your loved ones. For example, child neurologist or elderly care for an older adult? [...] No t on file Not on file Obstetrics History Last Filed Vital Signs Vital Sign Reading Time Taken Comments Blood Pressure 110/62 09/01/2024 2:35 PM EDT C Pulse 107 09/01/2024 2:35 PM EDT Temperature 36.4 ??C (97.6 ??F) 09/01/2024 2:35 PM ED T Respiratory Rate 14 06/28/2024 8:19 AM EST Oxygen Saturation 95% 09/01/2024 2:35 PM EDT Inhaled Oxygen Concentration - - Weight 91.6 kg (202 lb) 09/01/2024 2:35 PM EDT Height 162.6 cm (5' 4 ) 09/01/2024 2:35 PM EDT Body Mass Index 34.67 09/01/2024 2:35 PM EDT Plan of Treatment Upcoming Encounters Date Type Department Care Team (Late st Contact Info) Description 09/14/2024 8:30 AM EDT Office Visit Orthopedic Surgery [facility] [address] [phone] Roel Pal, DPM [address] [address] 09/22/2024 11:00 AM EDT Appointment [facility] CT Scan [address] [place] [address] 10/05/2024 9:20 AM EDT Appointment Radiology Department - [address] [phone] 10/17/2024 3:30 PM EDT Appointment [facility] CT Scan [address] [place] [address] 10/27/2024 8:45 AM EDT Office Visit [facility] South - [address] [phone] Didi Conner MD [address] [place] [address] [place] [address] 11/16/2024 8:30 AM EDT Office Visit Endocrinology - [place] [address] [place] [phone] Trini Montalvo PA [address] [place] [address] Health Maintenance Due Date Last Done Comments Diabetes: Annual Foot Exam 1980 Hepatitis B Vaccines (2 of 3 - 19+ 3-dose series) 07/13/1994 06/15/1994 Zoster Vaccines (1 of 2) 2018 COVID-19 Vaccine (2 - Sarita risk series) 04/06/2021 03/09/2021 HIV Screening 05/22/2022 Medicare Annual Wellness Visit 05/22/2022 Diabetes: Annual Retina Eye Exam 07/30/2024 07/30/2023 Diabetes: Blood Sugar Control Test (HGBA1C) 03/04/2025 09/01/2024, 05/06/2024, 11/25/2023, Additional history exists Depression Screening 04/29/2025 04/29/2024 Social Influencers of Health Screening 04/29/2025 04/29/2024 Diabetes: Annual Urine Albumin-Creatinine Ratio (uACR) 05/06/2025 05/06/2024, 09/28/2023, 10/01/2017, Additional history exists Lung Cancer Screening (Low Dose CT) 07/20/2025 07/20/2024 Diabetes: Annual GFR (Glomerular Filtration Rate) 09/01/2025 09/01/2024, 05/06/2024, 11/25/2023, Additional history exists Hypertension/CHF/CAD Annual BMP Blood Test 09/01/2025 09/01/2024, 05/06/2024, 11/25/2023, Additional history exists Breast Cancer Screening 04/06/2026 04/06/20 24, 04/06/2024, 10/05/2023, Additional history exists Cervical Cancer Screening: HPV 03/26/2027 03/26/2022 Colorectal Cancer Screening: Colonoscopy 04/12/2028 04/12/2018 DTaP,Tdap,and Td Vaccines (5 - Td or Tdap) 08/16/2028 08/16/2018, 03/12/2013, 03/15/2006, Additional history exists Cholesterol Screening (Lipid Panel) 05/06/2029 05/06/2024, 07/15/2023, 10/01/2017 Hepatitis C Screening Completed 02/10/2022 Influenza Vaccine Completed 04/29/2024, , 04/02/2022, Additional history exists Pneumococcal Vaccine: 50+ Years Completed 04/29/2024, 09/19/2015, 04/15/2004 Pneumococcal Vaccine: Pediatrics (0 to 5 Years) and At-Risk Patients (6 to 64 Years) Completed 04/29/2024, 09/19/2015, 04/15/2004 HIB Vaccines Aged Out No longer eligi ble based on patient's age to complete this topic HPV Vaccines Aged Out No longer eligi ble based on patient's age to complete this topic Hepatitis A Vaccines Aged Out No long er eligible based on patient's age to complete this topic IPV Vaccines Aged Out No longer eligi ble based on patient's age to complete this topic MMR Vaccines Aged Out No longer eligi ble based on patient's age to complete this topic Meningococcal ACWY Vaccine Aged Out N o longer eligible based on patient's age to complete this topic Meningococcal B Vacine Aged Out No lo nger eligible based on patient's age to complete this topic RSV Immunization Patients Under 20 months Aged Out No longer eligible based on patient's age to complete this topic Varicella Vaccines Aged Out No longer eligible based on patient's age to complete this topic Procedures Procedure Name Priority Date/Time Associated Diagnosis Comments CBC WITH AUTO DIFFERENTIAL Routine 09/01/2024 3:08 PM EDT Chronic diarrhea CBC AND DIFFERENTIAL Routine 09/01/2024 3:08 PM EDT Chronic diarrhea COMPREHENSIVE METABOLIC PANEL Routine 09/01/2024 3:08 PM EDT Chronic diarrhea ENDOMYSIAL ANTIBODY, IGA Routine 09/01/2024 3:08 PM EDT Chronic diarrhea GLIADIN ANTIBODIES, SERUM Routine 09/01/2024 3:08 PM EDT Chronic diarrhea TISSUE TRANSGLUTAMINASE, IGA Routine 09/01/2024 3:08 PM EDT Chronic diarrhea IMMUNOGLOBULIN IGA Routine 09/01/2024 3: 08 PM EDT Chronic diarrhea HEMOGLOBIN A1C Routine 09/01/2024 3:08 PM EDT 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, without long-term current use of insulin, unspecified laterality, unspecified retinopathy severity (CMS/HCC) XR ESOPHAGRAM Routine 08/08/2024 9:59 AM EST Diarrhea, unspecified type Nausea Gastroesophageal reflux disease without esophagitis Fecal urgency Dysphagia, unspecified type CT LUNG SCREENING Routine 07/20/2024 10: 12 AM EST Encounter for screening for lung cancer History of tobacco use MICROALBUMIN CREATININE URINE RATIO Routine 05/06/2024 9:53 AM EST Microalbuminuria LIPID PANEL WITH REFLEX TO DIRECT LDL Routine 05/06/2024 9:53 AM EST Mixed hyperlipidemia DIAGNOSTIC MAMMOGRAPHY WITH CAD UNILATERAL Routine 04/06/2024 9:32 AM EDT Other abnormal and inconclusive findings on diagnostic imaging of breast DIABETES EYE EXAM Routine 07/30/2023 HPV Routine 03/26/2022 HEPATITIS C SCREENING Routine 02/10/2022 COLONOSCOPY Routine 04/12/2018 from Last 3 Months or Most Recently Relevant to Health Maintenance Results * Endomysial antibody, IgA (09/01/2024 3:08 PM EDT) Endomysial IgA Negative Negative 09/08/2024 8:35 AM EDT [facility] Blood Venous blood specimen / Unknown Venipuncture / Unknown 09/01/2024 3:08 PM EDT 09/01/2024 3:08 PM EDT us Thaddeus CASTILLO LAB BLOOD ORDERABLES Final Resu lt [facility] [address] [place] [address], * (ABNORMAL) CBC auto differential (09/01/2024 3:08 PM EDT) WBC 10.6 4.8 - 10.8 K/mcL LAB HEMETOLOGY METHOD 09/01/2024 4:33 PM EDT [facility] RBC 4.00 3.80 - 4.80 M/mcL LAB HEMETOLOGY METHOD 09/01/2024 4:33 PM EDT [facility] Hemoglobin 11.7 11.5 - 16.0 g/dL LAB HEMETOLOGY METHOD 09/01/2024 4:33 PM EDT [facility] Hematocrit 36.7 35.0 - 47.0 % LAB HEMETOLOGY METHOD 09/01/2024 4:33 PM EDT [facility] MCV 92.7 79.0 - 98.0 FL LAB HEMETOLOGY METHOD 09/01/2024 4:33 PM EDT [facility] MCH 29.5 27.0 - 32.0 pcg LAB HEMETOLOGY METHOD 09/01/2024 4:33 PM EDT [facility] MCHC 31.9(L) 32.0 - 37.0 g/dL LAB HEMETOLOGY METHOD 09/01/2024 4:33 PM EDT [facility] RDW 13.1 11.0 - 15.0 % LAB HEMETOLOGY METHOD 09/01/2024 4:33 PM EDT [facility] Platelets 301 130 - 400 K/mcL LAB HEMETOLOGY METHOD 09/01/2024 4:33 PM EDT [facility] MPV 9.7 7.0 - 11.0 FL LAB HEMETOLOGY METHOD 09/01/2024 4:33 PM EDT [facility] NRBC 0.0 <1.0 % LAB [facility]Y [facility] Absolute 0.00 <0.10 K/mcL LAB HEMETOLOGY METHOD 09/01/2024 4:33 PM EDT [facility] Neutrophils Relative 68.2 % LAB HEMETOLOGY METHOD [facility] Lymphocytes Relative 22.5 % LAB HEMETOLOGY METHOD 09/01/2024 4:33 PM [facility] Monocytes Relative 4.5 % LAB HEMETOLOGY METHOD 09/01/2024 4:33 PM T [facility] Eosinophils Relative 3.9 % LAB HEMETOLOGY METHOD [facility]/01[facility]2024 [facility] Basophils Relative 0.4 % LAB HEMETOLOGY METHOD 09/01/2024 4:33 PM [facility] Immature Granulocytes Relative 0.5 % LAB HEMETOLOGY METHOD 09/01/2024 4:33 PM T [facility] Neutrophils Absolute 7.22(H) 1.50 - 7.00 K/mcL LAB HEMETOLOGY METHOD 09/01/2024 4:33 PM EDT [facility] Lymphocytes Absolute 2.38 1.00 - 5.00 K/mcL LAB HEMETOLOGY METHOD 09/01/2024 4:33 PM [facility] Monocytes Absolute 0.48 0.20 - 1.00 K/mcL LAB HEMETOLOGY METHOD 09/01/2024 4:33 PM EDT [facility] Eosinophils Absolute 0.41 0.00 - 0.50 K/[facility] LAB HEMETOLOGY METHOD 09/01/2024 4:33 PM EDT [facility] Basophils Absolute 0.04 0.00 - 0.20 K/[facility] LAB HEMETOLOGY METHOD 09/01/2024 4:33 PM EDT [facility] Immature Granulocytes Absolute 0.05(H) 0.00 - 0.03 K/[facility] LAB HEMETOLOGY METHOD 09/01/2024 4:33 PM EDT [facility] Blood Venous blood specimen / Unknown Venipuncture / Unknown 09/01/2024 3:08 PM EDT 09/01/2024 3:08 PM EDT us Thaddeus CASTILLO LAB BLOOD ORDERABLES Final Resu lt Performing Organization Address City/[facility]/ZIP Co de Phone Number [facility] [address] [place] [address], [place] [phone] * Gliadin antibodies, serum (09/01/2024 3:08 PM EDT) Gliadin IgA 5 <20 units LAB CHEMISTRY METHOD 09/07/2024 1:30 PM EDT [facility] Gliadin IgG 1 <20 units LAB CHEMISTRY METHOD 09/07/2024 1:30 PM EDT [facility] Gliadin IgA Antibody Negative Negative LAB CHEMISTRY METHOD 09/07/2024 1:30 PM EDT [facility] Gliadin IgG Antibody Negative Negative LAB CHEMISTRY METHOD 09/07/2024 1:30 PM EDT [facility] Blood Venous blood specimen / Unknown Venipuncture / Unknown 09/01/2024 3:08 PM EDT 09/01/2024 3:08 PM EDT us Thaddeus CASTILLO LAB BLOOD ORDERABLES Final Resu lt [facility] [address] [place] [address], [place] [phone] * Tissue transglutaminase, IgA (09/01/2024 3:08 PM EDT) [facility] Tissue Transglutaminase Ab, IgA Quant 2 <4 unit/mL LAB CHEMISTRY METHOD 09/07/2024 1:30 PM EDT [facility] Tissue Transglutaminase Ab, IgA Negative Negative LAB CHEMISTRY METHOD 09/07/2024 1:30 PM EDT [facility] Blood Venous blood specimen / Unknown Venipuncture / Unknown 09/01/2024 3:08 PM EDT 09/01/2024 3:08 PM EDT us Thaddeus CASTILLO LAB BLOOD ORDERABLES Final Resu lt Performing Organization Address City/[facility]/ZIP Co de Phone Number [facility] [address] [place] [address], [place] [phone] * (ABNORMAL) Hemoglobin A1c (09/01/2024 3:08 PM EDT) [facility] Hemoglobin A1C 7.9(H) <6.5 % LAB CHEMISTRY METHOD 09/01/2024 6:54 PM EDT [facility] Mean Bld Glu Estim. 180 mg/dL LAB CHEMISTRY METHOD 09/01/2024 6:54 PM EDT [facility] Blood Venous blood specimen / Unknown Venipuncture / Unknown 09/01/2024 3:08 PM EDT 09/01/2024 3:08 PM EDT us Trini CASTILLO LAB BLOOD ORDERABLES Final Result Performing Organization Address City/[facility]/ZIP Co de Phone Number [facility] [address] [place] [address], [place] [phone] * (ABNORMAL) Immunoglobulin IgA (09/01/2024 3:08 PM EDT) IgA 367(H) 61 - 348 mg/dL LAB CHEMISTRY METHOD 09/01/2024 6:23 PM EDT [facility] Blood Venous blood specimen / Unknown Venipuncture / Unknown 09/01/2024 3:08 PM EDT 09/01/2024 3:08 PM EDT Thaddeus CASTILLO LAB BLOOD ORDERABLES Final Resu lt [facility] [address] [place] [address], [place] [phone] * (ABNORMAL) Comprehensive metabolic panel (09/01/2024 3:08 PM EDT) Pathologist [facility] Sodium 136 133 - 145 mmol/L LAB CHEMISTRY METHOD 09/01/2024 6:23 PM [facility] Potassium 5.1 3.5 - 5.5 mmol/L LAB CHEMISTRY METHOD 09/01/2024 6:23 PM [facility] Chloride 100 96 - 110 mmol/L LAB CHEMISTRY METHOD 09/01/2024 6:23 PM [facility] CO2 27 21 - 32 mmol/L LAB CHEMISTRY METHOD 09/01/2024 6:23 PM [facility] Anion Gap 9 3 - 11 LAB CHEMISTRY METHOD 09/01/2024 6:23 PM [facility] Glucose 224(H) 70 - 100 mg/dL LAB CHEMISTRY METHOD 09/01/2024 6:23 PM [facility] BUN 28(H) 5 - 25 mg/dL LAB CHEMISTRY METHOD 09/01/2024 6:23 PM [facility] Creatinine 1.08 0.50 - 1.10 mg/dL LAB CHEMISTRY METHOD 09/01/2024 6:23 PM [facility] eGFR 60 >=60 mL/min/1. 73m2 LAB CHEMISTRY METHOD 09/01/2024 6:23 PM T [facility] Comment:Calculation based on the??Chronic Kidney Disease Epidemiology Collaboration (CKD-EPI) equation refit??without adjustment for race. BUN/Creatinine Ratio 25.9 LAB CHEMISTRY METHOD 09/01/2024 6:23 PM EDT [facility] Calcium 9.7 8.5 - 10.5 mg/dL LAB CHEMISTRY METHOD 09/01/2024 6:23 PM [facility] AST (SGOT) 15 10 - 42 unit/L LAB CHEMISTRY METHOD 09/01/2024 6:23 PM [facility] ALT (SGPT) 28 10 - 60 unit/L LAB CHEMISTRY METHOD 09/01/2024 6:23 PM [facility] Alkaline Phosphatase 123(H) 42 - 121 unit/L LAB CHEMISTRY METHOD 09/01/2024 6:23 PM [facility] Total Protein 6.9 6.0 - 8.0 g/dL LAB CHEMISTRY METHOD 09/01/2024 6:23 PM [facility] Albumin 3.3 3.2 - 5.0 g/dL LAB CHEMISTRY METHOD 09/01/2024 6:23 PM [facility] Total Bilirubin 0.6 0.0 - 1.4 mg/dL LAB CHEMISTRY METHOD 09/01/2024 6:23 PM [facility] Blood Venous blood specimen / Unknown Venipuncture / Unknown 09/01/2024 3:08 PM EDT 09/01/2024 3:08 PM EDT us Thaddeus CASTILLO LAB BLOOD ORDERABLES Final Resu lt [facility] [address] [place] [address], * XR Esophagram (08/08/2024 9:59 AM EST) [...] Signed Date: 08/08/2024 11:13 ET Workstation ID: [id number] Transcribed By: Self Edit Transcribed Date: 08/08/2024 11:06 ET Resident/PA/VICE PRESIDENT DIGITAL STRATEGIST: Paulina Edwards Narrative 08/08/2024 11:13 AM EST FINDINGS: Double contrast esophagram performed. COMPARISON: No prior esophagram imaging HISTORY: Patient is a 54-year-old female with history of dysphagia, globus sensation, painful swallowing. Inconclusive endoscopy due to esophageal debris. Multimedia Author radiographs: 1 view chest radiograph demonstrates cardiac [...] painful swallowing. Inconclusive endoscopy due to esophagealdebris. Multimedia Author radiographs: 1 view chest radiograph demonstrates cardiac [...] Signed Date: 08/08/2024 11:13 ET Workstation ID: [id number] Transcribed By: Self Edit Transcribed Date: 08/08/2024 11:06 ET Resident/PA/VICE PRESIDENT DIGITAL STRATEGIST: Paulina Edwards Thaddeus CASTILLO IMG FLUOROSCOPY PROCEDURES Kerri l Result * CT Lung Screening (07/20/2024 10:12 AM EST) Anatomical Region Laterality Modality Chest Computed Tomogra phy 07/21/2024 2:32 PM EST Impressions 07/21/2024 2:48 PM EST 10 mm left lower lobe nodule is indeterminate. ??Lung RADS 4A-suspicious. ??Recommend chest CT in 3 months to assess change. -------- FINAL REPORT -------- Dictated By: JOVON SINGLETON Dictated Date: 07/21/2024 14:32 ET Assigned Physician: JOVON SINGLETON Reviewed and Electronically Signed By: JOVON SINGLETON Signed Date: 07/21/2024 14:48 ET Workstation ID: [id number] Transcribed By: Self Edit Transcribed Date: 07/21/2024 14:32 ET Narrative 07/21/2024 2:48 PM EST PROCEDURE: Chest CT INDICATION: Lung cancer screening, former smoker, 64 pack year smoking history TECHNIQUE: Chest CT without contrast. Multi planar reformats were created and interpreted. The examination was performed utilizing dose reduction techniques. ??Total DLP 98 COMPARISON: ??No priors available. FINDINGS: LUNGS/PLEURA: Central airways are patent. ??Mild emphysema. ??Mild bronchiectasis and bronchial wall thickening indicative of chronic bronchitis. ??9 x 10 mm left lower lobe nodule near the costophrenic angle. ??Other scattered calcified and noncalcified 2 to 3 mm solid nodules are noted throughout the lungs. ??No pleural effusion or pneumothorax. MEDIASTINUM: Thyroid gland is normal. ??No mediastinal or hilar lymphadenopathy. ??Esophagus is normal. ??Cardiac chambers are normal in size. ??Advanced coronary artery calcifications with multiple coronary artery stents. ??Thoracic aorta is normal in size. CHEST WALL: No axillary lymphadenopathy or superficial hematoma. UPPER ABDOMEN:Cholecystectomy. BONES: No acute fracture. Scattered degenerative changes seen throughout the bones. us Reyna Alcazar MD IMG CT PROCEDURES Final Result * Lipid panel with reflex to direct LDL (05/06/2024 9:53 AM EST) Cholesterol 120 0 - 200 mg/dL LAB CHEMISTRY METHOD 05/06/2024 3:[address] [facility] Triglycerides 135 0 - 150 mg/dL LAB CHEMISTRY METHOD 05/06/2024 3:[address] [facility] HDL 67 >=40 mg/dL LAB CHEMISTRY METHOD 05/06/2024 3:[address] [facility] LDL Calculated 26 0 - 100 mg/dL LAB CHEMISTRY METHOD 05/06/2024 3:[address] [facility] VLDL Cholesterol Tavon 27 mg/dL LAB CHEMISTRY METHOD 05/06/2024 3:[address] [facility] Non HDL Chol. (LDL+VLDL) 53 <145 mg/dL LAB CHEMISTRY METHOD 05/06/2024 3:[address] [facility] Chol/HDL Ratio 1.8 0.0 - 4.4 LAB CHEMISTRY METHOD 05/06/2024 3:[address] [facility] Blood Venous blood specimen / Unknown Venipuncture / Unknown 05/06/2024 9:53 AM EST 05/06/2024 9:53 AM EST us Holly CASTILLO LAB BLOOD ORDERABLES Final Re sult Performing Organization Address City/[facility] Co de Phone Number [facility] [address] [place] [address], [place] [phone] * (ABNORMAL) Microalbumin creatinine urine ratio (05/06/2024 9:53 AM EST) Creatinine, Urine 70.0 mg/dL LAB CHEMISTRY METHOD 05/06/2024 3:38 PM EST [facility] Microalb, Ur 50.3(H) 0.0 - 29.0 mg/L LAB CHEMISTRY METHOD 05/06/2024 3:38 PM EST [facility] Microalb/Crea t Ratio 72(H) <30 mg/g creat LAB CHEMISTRY METHOD 05/06/2024 3:38 PM EST [facility] Urine Urine specimen from urethra / Unknown Non-blood Collection / Unknown 05/06/2024 9:53 AM EST 05/06/2024 9:53 AM EST Holly CASTILLO LAB URINE ORDERABLES Final Re sult Performing Organization Address [facility] de Phone Number [facility] [address] [place] [address], * DIAGNOSTIC MAMMOGRAPHY WITH CAD UNILATERAL (04/06/2024 9:32 AM EDT) Anatomical Region Laterality Modality Mammography 10/05/2023 11:2 6 AM EDT Narrative 04/06/2024 9:41 AM EDT This is a summary report. The complete report is available in the patient's medical record. If you cannot access the medical record, please contact the sending organization for a detailed fax or copy. Left breast mammogram, 6 months follow-up examination. Spot compression views of the left breast in the CC and MLO projections with tomosynthesis were obtained, compared with priors, latest from 10/05/2023. Breast tissue is of mixed density. Small asymmetry of concern in the upper outer left breast persists and appears to be stable and therefore probably benign. ??No new suspicious abnormalities were identified. Conclusions: Probably benign focal asymmetry in the upper outer left breast. ??Follow-up mammogram in 6 months with spot compression views in the CC and MLO projection as well as bilateral full-field screening examination at the time of your annual screening exam. BI-RADS 3, probably benign findings. Procedure Note Farida Parson MD - 05/09/2024 This is a summary report. The complete report is available in thepatient's medical record. If you cannot access the medical record, pleasecontact the sending organization for a detailed fax or copy. Left breast mammogram, 6 months follow-up examination. Spot compression views of the left breast in the CC and MLO projectionswith tomosynthesis were obtained, compared with priors, latest from10/05/2023. Breast tissue is of mixed density. Small asymmetry of concern in the upper outer left breast persists andappears to be stable and therefore probably benign. No new suspiciousabnormalities were identified. Conclusions: Probably benign focal asymmetry in the upper outer leftbreast. Follow-up mammogram in 6 months with spot compression views inthe CC and MLO projection as well as bilateral full-field screeningexamination at the time of your annual screening exam. BI-RADS 3, probably benign findings. Result [facility] Gagan Brandt DO IMG BI PROCEDURES Final Resul t * Diabetes Eye Exam (07/30/2023) [facility] Diabetes: Annual Retina Eye Exam abstracted Result [facility] Provider [facility] Final Result * Cervical Cancer Screening: HPV (03/26/2022) [facility] Cervical Cancer Screening: HPV negative, abstracted Result [facility] Final Result * Hepatitis C Screening (02/10/2022) [facility] Hepatitis C Screening abstracted Result [facility] Final Result * Colonoscopy (04/12/2018) [facility] Colonoscopy no interpretation , abstracted Anatomical Region Laterality Modality Other Result [facility] HEALTH MAINTENANCE Final Result from Last 3 Months or Most Recently Relevant to Health Maintenance Insurance , [address] [place] [id number] [employer] MEDICARE Member Subscriber Plan / Payer (Ef fective 2019-Present) Name:Ciera Haas Relation to Subscriber:Self Name:Ciera Haas Payer ID:[id number] Group ID:[id number] Type:Not on file Address: [place] [address] [address] [id number] Care Teams Hybrid Derivatives Trader Relationship Specialty Start Date End Date Didi Conner MD [address] [place] [id number] PCP - General Internal Medicine 08/16/21
--- OUTSIDE RECORDS SUMMARY | 2024-09-08 10:28 | XMS_ITS | Encounter Summary ---
Author Organization [facility] Address [address] [place] [address] Care Team Providers Care Clinical Staff Rn Name Role Phone Leti Ballesteros MD Primary Care Provider Unavail able Didi Conner MD Primary Care Provider [phone] Encounter Details Date Type Department Care Team Description 05/09/2019 [facility] Medical Records [address] [place] [address] Abstract, Provider Social History Tobacco Use Types [...] on filedocumented in this encounter Care Teams Clinical Staff Rn Relationship Specialty Start Date End Date Leti Ballesteros MD PCP - General Internal Medicine 04/28/18 08/15/21 Didi Conner MD [address] [place] [id number] PCP - General Internal Medicine 08/16/21 documented as of this encounter
--- OUTSIDE RECORDS SUMMARY | 2024-09-08 10:28 | XMS_ITS | Encounter Summary ---
Author Organization [facility] Address [address] [place] [address] Care Team Providers Care Stretcher Drier Operator Name Role Phone Leti Ballesteros MD Primary Care Provider Unavail able Didi Conner MD Primary Care Provider [phone] Encounter Details Date Type Department Care Team Description 04/10/2021 Information Strategist Report Medical Records [address] [place] [address] Holly Ramirez DPM Social History Tobacco Use Types Packs/Day [...] on filedocumented in this encounter Care Teams Stretcher Drier Operator Relationship Specialty Start Date End Date Leti Ballesteros MD PCP - General Internal Medicine 04/28/18 08/15/21 Didi Conner MD [address] [place] [address] PCP - General Internal Medicine 08/16/21 documented as of this encounter
--- OUTSIDE RECORDS SUMMARY | 2024-09-08 10:28 | XMS_ITS | Encounter Summary ---
Author Organization [facility] Address [address] [place] [address] Care Team Providers Care Asphalt Still Operator Name Role Phone Didi Conner MD Primary Care Provider [phone] Encounter Details Date Type Department Care Team Description 12/06/2021 [facility] [address] [phone] Roel Pal DPM [address] [address] Social History Tobacco Use Types Packs/Day Years [...] on filedocumented in this encounter Care Teams Asphalt Still Operator Relationship Specialty Start Date End Date Didi Conner MD [address] [place] [address] [id number] PCP - General Internal Medicine 08/16/21 documented as of this encounter
--- OUTSIDE RECORDS SUMMARY | 2024-09-08 10:28 | XMS_ITS | Encounter Summary ---
Author Organization [facility] Address [address] [place] [address] Care Team Providers Care Recoater Name Role Phone Leti Ballesteros MD Primary Care Provider Unavail able Didi Conner MD Primary Care Provider [phone] Encounter Details Date Type Department Care Team Description 02/21/2021 Canvas Goods Maker Report Medical Records [address] [place] [address] Casimiro Newman Social History Tobacco Use Types Packs/Day Years [...] on filedocumented in this encounter Care Teams Recoater Relationship Specialty Start Date End Date Leti Ballesteros MD PCP - General Internal Medicine 04/28/18 08/15/21 Didi Conner MD [address] [place], [place] [phone] PCP - General Internal Medicine 08/16/21 documented as of this encounter
--- OUTSIDE RECORDS SUMMARY | 2024-09-08 10:28 | XMS_ITS | Encounter Summary ---
Author Organization [facility] Address [address] [place] [address] Care Team Providers Care Supervisor Kennel Name Role Phone Leti Ballesteros MD Primary Care Provider Unavail able Didi Conner MD Primary Care Provider [phone] Reason for Visit * Reason Onset Date Comments [facility] Call 01/29/2021 Encounter Details Date Type Department Care Team Description 01/29/2021 Telephone Adult Medicine [address] [address] Leti Ballesteros MD VNA Call Social History [...] encounter Miscellaneous Notes * Telephone Encounter - Carlota Hayden - 01/29/2021 3:22 PM EDT [facility]NA CALL Which [facility] office is calling? [facility] Full name of caller: Millie The caller is A nurse Is the caller at the patients home?: NO Reason for call: FYI-pt is being discharged from nursing services today Does caller need an urgent call back? NO Was CONTACT Telephone # obtained above?: YES Fax #: Unknown documented in this encounter Plan of Treatment Not on file documented as of this encounter Visit Diagnoses Not on filedocumented in this encounter Care Teams Supervisor Kennel Relationship Specialty Start Date End Date Leti Ballesteros MD PCP - General Internal Medicine 04/28/18 08/15/21 Didi Conner MD [address] [place] [id number] PCP - General Internal Medicine 08/16/21 documented as of this encounter
--- OUTSIDE RECORDS SUMMARY | 2024-09-08 10:28 | XMS_ITS | Encounter Summary ---
Author Organization [facility] Address [address] [place] [address] Care Team Providers Care Burrer Operator Name Role Phone Leti Ballesteros MD Primary Care Provider Unavail able Didi Conner MD Primary Care Provider [phone] Encounter Details Date Type Department Care Team Description 05/28/2019 Walk In Clinic Visit Medical Records [address] [place] [address] Clinic, [facility]-In [facility] [place] [address] Social History Tobacco Use Types Packs/Day Years [...] on filedocumented in this encounter Care Teams Burrer Operator Relationship Specialty Start Date End Date Leti Ballesteros MD PCP - General Internal Medicine 04/28/18 08/15/21 Didi Conner MD [address] [place] [phone] PCP - General Internal Medicine 08/16/21 documented as of this encounter
--- OUTSIDE RECORDS SUMMARY | 2024-09-08 10:28 | XMS_ITS | Encounter Summary ---
Author Organization [facility] Address [address] [place] [address] Care Team Providers Care Sole Scraper Name Role Phone Didi Conner MD Primary Care Provider [phone] Encounter Details Date Type Department Care Team Description 01/22/2022 Release of Information Medical Records [address] [place] [id number] Abstract, Provider Social History Tobacco Use Types [...] suspected to have Coronavirus/COVID-19? No / Unsure 01/14/2022 8:28 AM EDT documented as of this encounter Plan of Treatment Not on file documented as of this encounter Visit Diagnoses Not on filedocumented in this encounter Care Teams Sole Scraper Relationship Specialty Start Date End Date Didi Conner MD [address] [place] [address] PCP - General Internal Medicine 08/16/21 documented as of this encounter
--- OUTSIDE RECORDS SUMMARY | 2024-09-08 10:28 | XMS_ITS | Encounter Summary ---
Author Organization [facility] Address [address] [place] [address] Care Team Providers Care Architectural Examiner Name Role Phone Leti Ballesteros MD Primary Care Provider Unavail able Didi Conner MD Primary Care Provider [phone] Encounter Details Date Type Department Care Team Description 03/06/2021 Orders Only Medical Records [address] [place] [address] Tima Whitehead MD FACS [address] [place] [address] [place] [phone] Social History Tobacco Use Types Packs/Day Years [...] Name Priority Date/Time Associated Diagnosis Comments OUTSIDE PLAIN FILM Routine 03/05/2021 documented in this encounter Results * OUTSIDE PLAIN FILM (03/05/2021) Tima Whitehead MD FACS RADIOLOGY documented in this encounter Visit Diagnoses Not on filedocumented in this encounter Care Teams Architectural Examiner Relationship Specialty Start Date End Date Leti Ballesteros MD PCP - General Internal Medicine 04/28/18 08/15/21 Didi Conner MD [address] [place] [phone] PCP - General Internal Medicine 08/16/21 documented as of this encounter
--- OUTSIDE RECORDS SUMMARY | 2024-09-08 10:28 | XMS_ITS | Encounter Summary ---
Author Organization [facility] Address [address] [place] [address] Care Team Providers Care Cosmetic Surgeon Name Role Phone Leti Ballesteros MD Primary Care Provider Unavail able Didi Conner MD Primary Care Provider Encounter Details Date Type Department Care Team Description 03/05/2021 Hospital Medical Records [address] [place] [address] Tray Huffman PA Social History Tobacco Use Types Packs/Day Years [...] on filedocumented in this encounter Care Teams Cosmetic Surgeon Relationship Specialty Start Date End Date Leti Ballesteros MD PCP - General Internal Medicine 04/28/18 08/15/21 Didi Conner MD [address] [place] [phone] PCP - General Internal Medicine 08/16/21 documented as of this encounter
--- OUTSIDE RECORDS SUMMARY | 2024-09-08 10:28 | XMS_ITS | Clinical Summary ---
Author Organization [facility] Address [address] [place] [address] Care Team Providers Care Leather Currier Name Role Phone Leti Ballesteros MD Primary Care Provider [phone] Allergies Active Allergy Reactions Criticality Noted Date Comments Adhesive Tape Rash Low 01/22/2017 Oxycodone-Acetaminoph en Itching 05/24/2012 Tape 05/17/2018 Other reaction(s): Rash/Dermatitis Blistering Tramadol Nausea And Vomiting 01/22/2017 Medications Medication Sig Dispensed Refills Start Date End Date Status albuterol (PROVENTIL HFA;VENTOLIN HFA) 108 (90 Base) MCG/ACT inhaler 2 puffs as needed 0 06/27/2014 Active ammonium lactate (AMLACTIN) 12 % cream 0 05/30/2019 Act gwendolyn amoxicillin-clavulanat e (AUGMENTIN) 875-125 MG per tablet TAKE 1 TABLET EVERY 12 HOURS FOR 10 DAY 0 05/28/2019 Active ARIPiprazole (ABILIFY) 10 MG tablet Take 10 mg by mouth. 0 05/19/2017 Active aspirin 325 MG tablet Take 325 mg by mouth. 0 Active buPROPion (WELLBUTRIN XL) 150 MG 24 hr tablet Take 150 mg by mouth. 0 04/30/2017 Active Cetirizine HCl 10 MG CAPS 1 tab(s) 0 Active dilTIAZem (CARDIZEM CD) 240 MG 24 hr capsule TAKE 1 CAPSULE BY MOUTH EVERY DAY 0 03/21/2019 Active fluticasone-salmeterol (ADVAIR HFA) 115-21 MCG/ACT inhaler TAKE 2 PUFFS BY MOUTH TWICE A DAY 0 05/16/2019 Active glucose blood (FREESTYLE LITE) test strip 1 each. 0 08/04/2018 Active ibuprofen (ADVIL,MOTRIN) 600 MG tablet TAKE 1 TABLET BY MOUTH EVERY 6 HOURS NEEDED FOR PAIN 0 11/01/2018 Active insulin glargine (LANTUS SOLOSTAR) injection 100 units/mL Inject 53 Units under the skin. 0 08/12/2018 Active Insulin Pen Needle (PEN NEEDLES) 32G X 6 MM MISC 1 each by Does not apply route. 0 05/17/2018 Active ipratropium-albuterol (DUO-NEB) 0.5-2.5 mg/mL nebulizer Inhale 3 mL into the lungs. 0 09/23/2018 Active liraglutide (VICTOZA) injection 18 mg/3 mL INJECT 1.8 MG UNDER THE SKIN ONCE DAILY 0 02/01/2018 Active loratadine (CLARITIN) 10 MG tablet Take 10 mg by mouth. 0 02/10/2019 Active Melatonin 10 MG TABS Take 1 tablet by mouth. 0 05/17/2018 Active metFORMIN (GLUCOPHAGE) tablet 1000 mg TAKE 1 TABLET BY MOUTH TWICE A DAY WITH MEALS 0 05/19/2017 Active Misc. Devices (FREE SPIRIT KNEE/LEG WALKER) MISC 1 Units by Does not apply route. 0 10/15/2018 Active Olopatadine HCl (PATADAY) 0.2 % ophthalmic solution 1 drop(s) 0 11/24/2016 Activ e Polyethylene Glycol 3350 (PEG 3350) POWD Take 17 g by mouth. 0 06/12/2017 Active pravastatin (PRAVACHOL) tablet 20 mg TAKE 1 TABLET BY MOUTH EVERY DAY 0 07/12/2013 Active predniSONE (DELTASONE) tablet 10 mg 4 TABS FOR 2 DAYS THEN 3 TABS FOR 2 DAYS THEN 2 TABS FOR 2 DAYS THEN 1 TAB FOR 2 DAYS ONCE A DAY 0 05/28/2019 Active raNITIdine (ZANTAC) 300 MG tablet TAKE 1 TABLET BY MOUTH EVERYDAY AT BEDTIME 0 04/13/2019 Active SITagliptin (JANUVIA) 100 MG tablet Take 100 mg by mouth. 0 06/11/2017 Active Insulin Syringe-Needle U-100 30G X 1/2 0.3 ML MISC use 4 times daily 0 Active DULoxetine (CYMBALTA) DR capsule 30 mg 0 07/08/2019 Active gabapentin (NEURONTIN) 300 MG capsule TAKE 1 CAPSULE IN THE MORNING AND 1 CAPSULE AT NIGHT FOR NEUROPATHY PAINS. 0 07/25/2019 Active insulin aspart (NovoLOG) injection 100 units/mL INJECT 2-16 UNITS 3 TIMES DAILY BEFORE MEALS 0 12/03/2017 Active Insulin Syringes, Disposable, U-100 1 ML MISC 1 each by Does not apply route. 0 10/11/2018 Active omeprazole (PriLOSEC) 20 MG capsule Take 20 mg by mouth. 0 04/21/2018 Active ondansetron (ZOFRAN-ODT) 4 MG disintegrating tablet 0 07/14/2019 Act gwendolyn Family History Medical History Relation Name Comments Diabetes Brother Hyperlipidemia Brother Hypertension Brother Diabetes Father Hyperlipidemia Father Diabetes Mother Hyperlipidemia Mother Hypertension Mother Relation Name Status Comments Brother Father Mother Social History Tobacco Use Types Packs/Day Years Used Date Smoking Tobacco: Former Cigarettes Q uit: 2013 Smokeless Tobacco: Never Sex and Gender Information Value Date Recorded Sex Assigned at Not on file Gender Identity Not on file Sexual Orientation Not on file Last Filed Vital Signs Vital Sign Reading Time Taken Comments Blood Pressure - - Pulse - - Temperature - - Respiratory Rate - - Oxygen Saturation - - Inhaled Oxygen Concentration - - Weight 127 kg (280 lb) 07/28/2019 1:23 PM EST Height 162.6 cm (5' 4 ) 07/28/2019 1:23 PM EST Body Mass Index 48.06 07/28/2019 1:23 PM EST Plan of Treatment Health Maintenance Due Date Last Done Comments Hepatitis B Vaccines (1 of 3 - 3-dose series) 1968 Hepatitis C Screening 1968 COVID-19 Vaccine (#1) 1968 Depression Screening 1980 BMI Counseling 1986 Preventative Health Evaluation 1986 Cervical Cancer Screening (Pap Smear) 1989 Pneumococcal Vaccine (2 of 2 - PCV) 04/15/2005 04/15/2004 Colon Cancer Screening (Colonoscopy) 2013 Breast Cancer Screening (Mammogram) 2018 Shingrix-Zoster Vaccine (1 o f 2) 2018 Influenza Vaccine (#1) 2024 9, 03/23/2014 DTap / Tdap / Td (2 - Td or Tdap) 08/16/2028 08/16/2018, 03/15/2006 RSV Ped < 20 months Aged Out No longe r eligible based on patient's age to complete this topic Care Teams Leather Currier Relationship Specialty Start Date End Date Leti Ballesteros MD PCP - General Internal Medicine 05/05/19
--- OUTSIDE RECORDS SUMMARY | 2024-09-08 10:28 | XMS_ITS | Encounter Summary ---
Author Organization [facility] Address [address] [place] [address] Care Team Providers Care Bladder Cleaner Name Role Phone Leti Ballesteros MD Primary Care Provider Unavail able Didi Conner MD Primary Care Provider [phone] Encounter Details Date Type Department Care Team Description 02/21/2021 Hospital Medical Records [address] [place] [address] Casimiro Newman Social History Tobacco Use Types [...] on filedocumented in this encounter Care Teams Bladder Cleaner Relationship Specialty Start Date End Date Leti Ballesteros MD PCP - General Internal Medicine 04/28/18 08/15/21 Didi Conner MD [address] [place], [place] [phone] PCP - General Internal Medicine 08/16/21 documented as of this encounter
--- OUTSIDE RECORDS SUMMARY | 2024-09-08 10:28 | XMS_ITS | Encounter Summary ---
Author Organization [facility] Address [address] [place] [address] Care Team Providers Care Manager It Security Name Role Phone Leti Ballesteros MD Primary Care Provider Unavail able Didi Conner MD Primary Care Provider [phone] Reason for Visit * Reason Onset Date Comments Faxed Order 01/15/2021 Encounter Details Date Type Department Care Team Description 01/15/2021 Telephone Adult Medicine [address] [address] Leti Ballesteros MD Faxed Order Social History Tobacco Use Types Packs/Day Years [...] have Coronavirus / COVID-19? No / Unsure 12/25/2020 1:45 PM EDT documented as of this encounter Miscellaneous Notes * Telephone Encounter - Meg Gale - 01/31/2021 11:19 AM EDT Fax orders from Pam[facility] THOM[facility], please sign and fax back. * Telephone Encounter - Nicolasa Murillo - 01/15/2021 1:27 PM EDT Faxed orders from [employer] [facility]. Please sign and fax back. documented in this encounter Plan of Treatment Not on file documented as of this encounter Visit Diagnoses Not on filedocumented in this encounter Care Teams Manager It Security Relationship Specialty Start Date End Date Leti Ballesteros MD PCP - General Internal Medicine 04/28/18 08/15/21 Didi Conner MD [address] [place] [id number] PCP - General Internal Medicine 08/16/21 documented as of this encounter
--- OUTSIDE RECORDS SUMMARY | 2024-09-08 10:28 | XMS_ITS | Encounter Summary ---
Author Organization [facility] Address [address] [place] [address] Care Team Providers Care Elementary Ell Teacher Name Role Phone Leti Ballesteros MD Primary Care Provider Unavail able Didi Conner MD Primary Care Provider [phone] Encounter Details Date Type Department Care Team Description 03/06/2021 Hospital Medical Records [address] [place] [address] Brandy Cai MD Social History Tobacco Use Types Packs/Day [...] on filedocumented in this encounter Care Teams Elementary Ell Teacher Relationship Specialty Start Date End Date Leti Ballesteros MD PCP - General Internal Medicine 04/28/18 08/15/21 Didi Conner MD [address] [place] [address] [id number] PCP - General Internal Medicine 08/16/21 documented as of this encounter
--- OUTSIDE RECORDS SUMMARY | 2024-09-08 10:28 | XMS_ITS | Encounter Summary ---
Author Organization [facility] Address [address] [place] [address] Care Team Providers Care Flotation Tender Name Role Phone Didi Conner MD Primary Care Provider [phone] Encounter Details Date Type Department Care Team Description 03/17/2022 Orders Only Adult Medicine [address] [phone] Holly Olivarez PA-C [address] [place] [phone] Nocturnal hypoxemia (Primary Dx); Snoring; Witnessed apneic spells; PND (paroxysmal nocturnal dyspnea) Social History Tobacco Use Types Packs/Day Years [...] as of this encounter Plan of Treatment Scheduled Orders Name Type Priority Associated Diagnoses Orde r Schedule SLEEP STUDY-FULL NEURO 16 CHANNEL SLEEP STUDY Routine Snoring Witnessed apneic spells PND (paroxysmal nocturnal dyspnea) Nocturnal hypoxemia Expected: 03/17/2022, Expires: 03/17/2023 documented as of this encounter Procedures Procedure Name Priority Date/Time Associated Diagnosis Comments SLEEP STUDY-FULL NEURO 16 CHANNEL Routine 02/25/2022 Snoring Witnessed apneic spells PND (paroxysmal nocturnal dyspnea) documented in this encounter Results * SLEEP STUDY-FULL NEURO 16 CHANNEL (02/25/2022) Holly Olivarez PA-C PULMONOLOGY documented in this encounter Visit Diagnoses Diagnosis Nocturnal hypoxemia- Primary Hypoxemia Snoring Other dyspnea and respiratory abnormality Witnessed apneic spells Apnea PND (paroxysmal nocturnal dyspnea) Other dyspnea and respiratory abnormality documented in this encounter Care Teams Flotation Tender Relationship Specialty Start Date End Date Didi Conner MD [address] [place] [address] PCP - General Internal Medicine 08/16/21 documented as of this encounter
--- OUTSIDE RECORDS SUMMARY | 2024-09-08 10:29 | XMS_ITS | Encounter Summary ---
Author Organization [facility] Address [address] [place] [address] Care Team Providers Care Title Coordinator Name Role Phone Didi Conner MD Primary Care Provider Encounter Details Date Type Department Care Team Description 05/01/2022 CGM Report Medical Records [address] [place] [address] Abstract, Provider Social History Tobacco Use Types [...] suspected to have Coronavirus/COVID-19? No / Unsure 05/01/2022 8:51 AM EST documented as of this encounter Plan of Treatment Not on file documented as of this encounter Visit Diagnoses Not on filedocumented in this encounter Care Teams Title Coordinator Relationship Specialty Start Date End Date Didi Conner MD [address] [place] [phone] PCP - General Internal Medicine 08/16/21 documented as of this encounter
--- OUTSIDE RECORDS SUMMARY | 2024-09-08 10:29 | XMS_ITS | Encounter Summary ---
Author Organization [facility] Address [address] [place] [address] Care Team Providers Care Program Director Scouting Name Role Phone Leti Ballesteros MD Primary Care Provider Unavail able Didi Conner MD Primary Care Provider [phone] Reason for Visit * Reason Onset Date Comments Prior Authorization 10/13/2019 Encounter Details Date Type Department Care Team Description 10/13/2019 Telephone Adult Medicine [address] [address] Leti Ballesteros MD Prior Authorization Social History Tobacco Use Types [...] encounter Miscellaneous Notes * Telephone Encounter - Charlotte Mercado M.A. - 10/13/2019 11:43 AM EDT The 3% gel is not covered, the 1% gel is [place] p [phone] Prior Auth pool Charlotte Mercado M.A. Regional Prior Authorizations Ext [id number] Fax: [phone] [place] p [phone] Prior Auth lucia * Telephone Encounter - Roel Matos - 10/13/2019 11:00 AM EDT Prior Authorization for Medication-do not complete and send this encounter unless you have the fax from the pharmacy. Is this a Cover My Meds request: Yes -- Lew Code [id number] Name of Medication Diclofenac sodium Dose of Medication 3% gel What is the RX # from the faxed refill? Not on form How does patient take this med? Not on form What Pharmacy did the fax come from: [facility] fax #: [phone] Third Libertarian Information from fax: What Prescription Plan does the patient have? Not on form BIN/PCN if applicable: Not on form Cardholder ID: Not on form Person Code: Not on form Relationship Code: Not on form Help desk phone: Not on form documented in this encounter Plan of Treatment Not on file documented as of this encounter Visit Diagnoses Not on filedocumented in this encounter Care Teams Program Director Scouting Relationship Specialty Start Date End Date Leti Ballesteros MD PCP - General Internal Medicine 04/28/18 08/15/21 Didi Conner MD [address] [place] [id number] PCP - General Internal Medicine 08/16/21 documented as of this encounter
--- OUTSIDE RECORDS SUMMARY | 2024-09-08 10:29 | XMS_ITS | Encounter Summary ---
Author Organization [facility] Address [address] [place] [address] Care Team Providers Care Middle School Guidance Counselor Name Role Phone Leti Ballesteros MD Primary Care Provider Unavail able Didi Conner MD Primary Care Provider [phone] Encounter Details Date Type Department Care Team Description 03/26/2021 Career Representative Report Medical Records [address] [place] [address] Elías Luo MD Social History Tobacco Use Types Packs/Day [...] on filedocumented in this encounter Care Teams Middle School Guidance Counselor Relationship Specialty Start Date End Date Leti Ballesteros MD PCP - General Internal Medicine 04/28/18 08/15/21 Didi Conner MD [address] [place] [id number] PCP - General Internal Medicine 08/16/21 documented as of this encounter
--- OUTSIDE RECORDS SUMMARY | 2024-09-08 10:30 | XMS_ITS | Encounter Summary ---
Author Organization [facility] Address [address] [place] [address] Care Team Providers Care Farmworker Poultry Name Role Phone Didi Conner MD Primary Care Provider [phone] Encounter Details Date Type Department Care Team Description 04/17/2022 Telephone Adult Medicine [address] [address] Holly Olivarez PA-C [address] [place] [address] [phone] Social History Tobacco Use Types Packs/Day Years [...] suspected to have Coronavirus/COVID-19? No / Unsure 04/02/2022 10:00 AM EDT documented as of this encounter Plan of Treatment Not on file documented as of this encounter Visit Diagnoses Not on filedocumented in this encounter Care Teams Farmworker Poultry Relationship Specialty Start Date End Date Didi Conner MD [address] [place] [address] [id number] PCP - General Internal Medicine 08/16/21 documented as of this encounter
--- OUTSIDE RECORDS SUMMARY | 2024-09-08 10:30 | XMS_ITS | Encounter Summary ---
Author Organization [facility] Address [address] [place] [address] Care Team Providers Care Household Worker Name Role Phone Leti Ballesteros MD Primary Care Provider Unavail able Didi Conner MD Primary Care Provider [phone] Encounter Details Date Type Department Care Team Description 05/14/2021 Telephone [facility] [address] [phone] Roel Pal DPM [address] [address] Social History Tobacco Use Types Packs/Day Years [...] have Coronavirus / COVID-19? No / Unsure 05/15/2021 9:02 AM EST documented as of this encounter Plan of Treatment Not on file documented as of this encounter Visit Diagnoses Not on filedocumented in this encounter Care Teams Household Worker Relationship Specialty Start Date End Date Leti Ballesteros MD PCP - General Internal Medicine 04/28/18 08/15/21 Didi Conner MD [address] [place] [address] [phone] PCP - General Internal Medicine 08/16/21 documented as of this encounter
--- OUTSIDE RECORDS SUMMARY | 2024-09-08 10:30 | XMS_ITS | Encounter Summary ---
Author Organization [facility] Address [address] [place] [address] Care Team Providers Care Range Mechanic Name Role Phone Jose Brennan Primary Care Provider UnavailLeti Castro MD Primary Care Provider Unavail able Didi Conner MD Primary Care Provider [phone] Encounter Details Date Type Department Care Team Description 09/11/2017 Transportation Consultant Report Medical Records [address] [place] [address] Yoel Wood MD Social History Tobacco Use Types Packs/Day Years Used Date Smoking Tobacco: Never Assessed Sex Assigned at Date Recorded Not on file Job Start Date Occupation Industry Not on file Not on file Not on file documented as of this encounter Plan of Treatment Not on file documented as of this encounter Visit Diagnoses Not on filedocumented in this encounter Care Teams Range Mechanic Relationship Specialty Start Date End Date Jose Brennan PCP - General Internal Medicine 06/15/11 04/27/18 Leti Ballesteros MD PCP - General Internal Medicine 04/28/18 08/15/21 Didi Conner MD [address] [place] [id number] PCP - General Internal Medicine 08/16/21 documented as of this encounter
--- OUTSIDE RECORDS SUMMARY | 2024-09-08 10:30 | XMS_ITS | Encounter Summary ---
Author Organization [facility] Address [address] [place] [address] Care Team Providers Care Gas Welder Apprentice Name Role Phone Jose Brennan Primary Care Provider UnavailLeti Castro MD Primary Care Provider Unavail able Didi Conner MD Primary Care Provider [phone] Encounter Details Date Type Department Care Team Description 12/02/2017 Hospital Medical Records [address] [place] [address] Abstract, Provider Social History Tobacco Use Types [...] on filedocumented in this encounter Care Teams Gas Welder Apprentice Relationship Specialty Start Date End Date Jose Brennan PCP - General Internal Medicine 06/15/11 04/27/18 Leti Ballesteros MD PCP - General Internal Medicine 04/28/18 08/15/21 Didi Conner MD [address] [place] [address] PCP - General Internal Medicine 08/16/21 documented as of this encounter
--- OUTSIDE RECORDS SUMMARY | 2024-09-08 10:32 | XMS_ITS | Encounter Summary ---
Author Organization [facility] Address [address] [place] [address] Care Team Providers Care Applied Behavior Specialist Name Role Phone Didi Conner MD Primary Care Provider [phone] Encounter Details Date Type Department Care Team Description 08/16/2021 Hospital Medical Records [address] [place] [address] Roel aPl, DPQuintin [address] [address] Social History Tobacco Use Types Packs/Day Years [...] have Coronavirus / COVID-19? No / Unsure 08/16/2021 4:55 PM EST documented as of this encounter Plan of Treatment Not on file documented as of this encounter Visit Diagnoses Not on filedocumented in this encounter Care Teams Applied Behavior Specialist Relationship Specialty Start Date End Date Didi Conner MD [address] [place] [address] PCP - General Internal Medicine 08/16/21 documented as of this encounter
--- OUTSIDE RECORDS SUMMARY | 2024-09-08 10:32 | XMS_ITS | Encounter Summary ---
Author Organization [facility] Address [address] [place] [address] Care Team Providers Care Recovery Engineer Name Role Phone Leti Ballesteros MD Primary Care Provider Unavail able Didi Conner MD Primary Care Provider [phone] Encounter Details Date Type Department Care Team Description 06/18/2021 Barbering Instructor Report Medical Records [address] [place] [address] Elías Luo MD Social History Tobacco Use [...] have Coronavirus / COVID-19? No / Unsure 05/22/2021 1:51 PM EST documented as of this encounter Plan of Treatment Not on file documented as of this encounter Visit Diagnoses Not on filedocumented in this encounter Care Teams Recovery Engineer Relationship Specialty Start Date End Date Leti Ballesteros MD PCP - General Internal Medicine 04/28/18 08/15/21 Didi Conner MD [address] [place] [address] PCP - General Internal Medicine 08/16/21 documented as of this encounter
--- OUTSIDE RECORDS SUMMARY | 2024-09-08 10:32 | XMS_ITS | Encounter Summary ---
Author Organization [facility] Address [address] [place] [address] Care Team Providers Care Patient Support Assistant Name Role Phone Leti Ballesteros MD Primary Care Provider Unavail able Didi Conner MD Primary Care Provider [phone] Encounter Details Date Type Department Care Team Description 09/16/2018 Life Science Technician Report Medical Records [address] [place] [address] Jose Damon NP Social History Tobacco Use Types Packs/Day Years [...] on filedocumented in this encounter Care Teams Patient Support Assistant Relationship Specialty Start Date End Date Leti Ballesteros MD PCP - General Internal Medicine 04/28/18 08/15/21 Didi Conner MD [address] [place] [address] PCP - General Internal Medicine 08/16/21 documented as of this encounter
--- OUTSIDE RECORDS SUMMARY | 2024-09-08 10:32 | XMS_ITS | Encounter Summary ---
Author Organization [facility] Address [address] [place] [address] Care Team Providers Care Graphics Editor Name Role Phone Leti Ballesteros MD Primary Care Provider Unavail able Didi Conner MD Primary Care Provider [phone] Encounter Details Date Type Department Care Team Description 08/15/2021 [employer] Barista Report Medical Records [address] [place] [address] Elio Thakkar MD Social History Tobacco Use Types Packs/Day [...] on filedocumented in this encounter Care Teams Graphics Editor Relationship Specialty Start Date End Date Leti Ballesteros MD PCP - General Internal Medicine 04/28/18 08/15/21 Didi Conner MD [address] [place] [phone] PCP - General Internal Medicine 08/16/21 documented as of this encounter
--- OUTSIDE RECORDS SUMMARY | 2024-09-08 10:32 | XMS_ITS | Encounter Summary ---
Author Organization [facility] Address [address] [place] [address] Care Team Providers Care Cable Rigger Name Role Phone Leti Ballesteros MD Primary Care Provider Unavail able Didi Conner MD Primary Care Provider [phone] Encounter Details Date Type Department Care Team Description 06/04/2018 Transfer Records Medical Records [address] [place] [address] Abstract, Provider Social History Tobacco Use Types [...] on file documented as of this encounter Nursing Notes * Negin Carty - 06/04/2018 11:16 AM EST [facility] Sent to María Elena Ingram RN retail visual merchandiser. documented in this encounter Plan of Treatment Not on file documented as of this encounter Visit Diagnoses Not on filedocumented in this encounter Care Teams Cable Rigger Relationship Specialty Start Date End Date Leti Ballesteros MD PCP - General Internal Medicine 04/28/18 08/15/21 Didi Conner MD [address] [place] [address] [phone] PCP - General Internal Medicine 08/16/21 documented as of this encounter
--- OUTSIDE RECORDS SUMMARY | 2024-09-08 10:32 | XMS_ITS | Encounter Summary ---
Author Organization [facility] Address [address] [place] [address] Care Team Providers Care Manager Card Name Role Phone Leti Ballesteros MD Primary Care Provider Unavail able Didi Conner MD Primary Care Provider [phone] Encounter Details Date Type Department Care Team Description 08/02/[address] [facility] [address] [phone] Roel Pal DPM [address] [address] Social History Tobacco Use Types Packs/Day Years [...] have Coronavirus / COVID-19? No / Unsure 07/22/2021 8:22 AM EST documented as of this encounter Plan of Treatment Not on file documented as of this encounter Visit Diagnoses Not on filedocumented in this encounter Care Teams Manager Card Relationship Specialty Start Date End Date Leti Ballesteros MD PCP - General Internal Medicine 04/28/18 08/15/21 Didi Conner MD [address] [place] [address] [phone] PCP - General Internal Medicine 08/16/21 documented as of this encounter
--- OUTSIDE RECORDS SUMMARY | 2024-09-08 10:32 | XMS_ITS | Encounter Summary ---
Author Organization [facility] Address [address] [place] [address] Care Team Providers Care Coach Operator Name Role Phone Didi Conner MD Primary Care Provider [phone] Encounter Details Date Type Department Care Team Description 06/03/2022 Account Receivable Clerk Report Medical Records [address] [place] [id number] Elio Thakkar MD Social History Tobacco Use [...] suspected to have Coronavirus/COVID-19? No / Unsure 05/14/2022 8:38 AM EST documented as of this encounter Plan of Treatment Not on file documented as of this encounter Visit Diagnoses Not on filedocumented in this encounter Care Teams Coach Operator Relationship Specialty Start Date End Date Didi Conner MD [address] [place] [id number] PCP - General Internal Medicine 08/16/21 documented as of this encounter
--- OUTSIDE RECORDS SUMMARY | 2024-09-08 10:32 | XMS_ITS | Encounter Summary ---
Author Organization [facility] Address [address] [place] [address] Care Team Providers Care Mat Sewer Name Role Phone Leti Ballesteros MD Primary Care Provider Unavail able Didi Conner MD Primary Care Provider [phone] Encounter Details Date Type Department Care Team Description 07/01/2021 SCAN [facility] [address] [phone] Roel Pal DPM [address] [address] Social History Tobacco Use Types Packs/Day Years [...] have Coronavirus / COVID-19? No / Unsure 06/25/2021 7:53 AM EST documented as of this encounter Plan of Treatment Not on file documented as of this encounter Visit Diagnoses Not on filedocumented in this encounter Care Teams Mat Sewer Relationship Specialty Start Date End Date Leti Ballesteros MD PCP - General Internal Medicine 04/28/18 08/15/21 Didi Conner MD [address] [place] [address] [id number] PCP - General Internal Medicine 08/16/21 documented as of this encounter
--- OUTSIDE RECORDS SUMMARY | 2024-09-08 10:32 | XMS_ITS | Encounter Summary ---
Author Organization [facility] Address [address] [place] [address] Care Team Providers Care Fisher Terrapin Name Role Phone Leti Ballesteros MD Primary Care Provider Unavail able Didi Conner MD Primary Care Provider [phone] Encounter Details Date Type Department Care Team Description 07/26/2021 SCAN [facility] [address] [phone] Roel Pal DPM [address] [address] Social History Tobacco Use Types Packs/Day Years [...] on filedocumented in this encounter Care Teams Fisher Terrapin Relationship Specialty Start Date End Date Leti Ballesteros MD PCP - General Internal Medicine 04/28/18 08/15/21 Didi Conner MD [address] [place] [address] [id number] PCP - General Internal Medicine 08/16/21 documented as of this encounter
--- OUTSIDE RECORDS SUMMARY | 2024-09-08 10:32 | XMS_ITS | Encounter Summary ---
Author Organization [facility] Address [address] [place] [address] Care Team Providers Care Die Filer Name Role Phone Didi Conner MD Primary Care Provider [phone] Reason for Visit * Reason Onset Date Comments other 08/20/2021 Encounter Details Date Type Department Care Team Description 08/20/2021 Telephone [facility] [address] [phone] Roel Pal DPM [address] [phone] other Social History Tobacco Use Types Packs/Day Years [...] PM EST documented as of this encounter Miscellaneous Notes * Telephone Encounter - Laure Renee - 08/20/2021 1:18 PM EST Left voicemail for Mercedes to give the office a call back to go over the question she has regarding Ciera. * Telephone Encounter - Emily M Jose - 08/20/2021 11:15 AM EST Received incoming call from Mercedes, with [facility], she is inquiring on if they can remove patient's soft cast to clean her foot, or does it have to remain on @ all times. He 1st PO is on 09/02/21 she had a Left tendo achilles lengthening,excision of benign skin lesion, complex wound closure over bone, partial excision of torsal. Please call Mercedes back @ [phone]. documented in this encounter Plan of Treatment Not on file documented as of this encounter Visit Diagnoses Not on filedocumented in this encounter Care Teams Die Filer Relationship Specialty Start Date End Date Didi Conner MD [address] [place] [id number] PCP - General Internal Medicine 08/16/21 documented as of this encounter
== END ==
LOC: HO.CARD 09:05
PROVIDERS: PCP Internal Medicine; Visit Provider Internal Medicine
DX: I25.10 Atherosclerotic heart disease of native coronary artery without angina pectoris (principal)
CPT/HCPCS: 93306

== ENCOUNTER → 2024-09-08 09:07 | Outpatient (BNV) | payer OTHER, SELFPAY | PROVIDERS: PCP Internal Medicine; Visit Provider Internal Medicine Cardiovascular Disease | DX: I35.0 Nonrheumatic aortic (valve) stenosis (principal); I36.1 Nonrheumatic tricuspid (valve) insufficiency; I35.8 Other nonrheumatic aortic valve disorders; I34.81 Nonrheumatic mitral (valve) annulus calcification | CPT/HCPCS: 93306 ==

== ENCOUNTER 2024-09-20 09:57 | Outpatient (AMB) | payer OTHER, SELFPAY ==
[2024-09-20 10:15] VITALS: BP 90/56; PULSE 93; BMI 33.4
--- NOTE | 2024-09-20 10:15 | A.OFFVIS_ITS ---
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 Accompanied by: Sister Allergies adhesive tape [ADHESIVE TAPE] Allergy (Intermediate, Verified 03/31/24 09:17) BLISTERS tramadol [TRAMADOL] Allergy (Intermediate, Verified 03/31/24 09:17) NAUSEA & VOMITING oxycodone [OXYCODONE] Adverse Reaction (Intermediate, Verified 03/31/24 09:17) ITCHING Medication List - Last Reconciled 09/20/24 by Elio Thakkar MD adalimumab (Humira(CF) Pen) 80 mg subcut Q14D Advair HFA 45-21 mcg/actuation (fluticasone propion-salmeterol) 2 puffs PO BID NS albuterol sulfate 90 mcg/actuation (Ventolin HFA) 1 puff inhalation Q6H PRN aripiprazole 5 mg PO DAILY aspirin 81 mg PO DAILY 90 days atorvastatin 40 mg PO BEDTIME 90 days blood pressure monitor As directed blood sugar diagnostic (FreeStyle Lite Strips) bupropion HCl XL 150 mg PO BID buspirone 10 mg PO BID clindamycin phosphate 1% 1 appl topical BID duloxetine 30 mg PO BID esomeprazole magnesium (Nexium) 20 mg PO DAILY fluticasone propionate 50 mcg/actuation 2 sprays intranasal DAILY PRN gabapentin 300 mg PO BID Lactobacillus acidophilus 500,000,000 cells PO DAILY loratadine 10 mg PO DAILY magnesium oxide 400 mg PO DAILY melatonin 10 mg PO BEDTIME metformin 1,000 mg PO BID nystatin 1 appl topical BID Spiriva Respimat 1.25 mcg/actuation (tiotropium bromide) 2 puffs inhalation QAM NS tirzepatide (Mounjaro) 2.5 mg subcut QWEEK HPI Comments Details: Ciera returns for follow-up regarding coronary disease. Multiple medical comorbidities including diabetes on insulin, history of smoking, asthma/COPD. She had complained of chest pain and shortness of breath that led to cardiac workup. Eventually, had cardiac catheterization and stenting of LAD/RCA. More recently, she has had issues with orthostatic hypotension. Suspected could be because of weight loss. She states in the past she was as much as 300 lb but over time has lost close to 90+ lb. That might play a role in low blood pressure issues. With regard to angina, she does get some chest pains off and on but not entirely clear if it is angina or not as it can happen any time even at rest. She also gets dizzy at different times which could be related to orthostatic hypotension. [facility] Medical History Diabetic Charcot's foot Cataract of both eyes Supplemental oxygen dependent COVID-19 Asthma Cholecystectomy planned Hernia of abdominal wall delivery delivered Depression High cholesterol Tachycardia Diabetes Surgical History History of cataract surgery History of excision of pilonidal cyst Hx of oophorectomy Hx of umbilical hernia repair Hx of colonoscopy Hx of cholecystectomy Hx of section Hx of cardiac catheterization History of esophagogastroduodenoscopy (EGD) H/O foot surgery Family History Father No problems noted. 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) Alcohol intake: never Patient Tobacco Use Status: Former Tobacco user Tobacco use type: Cigarette Second Hand Smoke Exposure: No Substance Use Type: Marijuana service: No Current occupational status: disabled Review of Systems Const Denies chills, Denies fatigue, Denies fever(s), Denies weight gain and Denies weight loss ENT Denies dizziness Card Denies chest pain, Denies leg edema, Denies lightheadedness, Reports palpitations, Reports dyspnea on exertion, Denies orthopnea and Denies other Resp Denies cough and Reports dyspnea on exertion GI Denies hematochezia and Denies change in stool character Musc Denies abnormal gait, Denies muscle weakness, Denies numbness, Denies radiating pain into limb and Denies tingling Neuro Denies abnormal gait, Denies dizziness, Denies numbness and Denies tingling Endo Denies fatigue and Reports palpitations Physical Exam Vital Signs: Last Vital Signs Pulse 93 09/20/24 10:15 BP 90/56 L 09/20/24 10:15 BMI result Body Mass Index 33.4 Const General: comfortable and no acute distress Orientation/consciousness: patient oriented x3 HEENT Other: Unremarkable Head: Yes normal to inspection Neck Neck: Yes normal visual inspection Chest Chest palpation & inspection: normal inspection of the chest Resp Auscultation: clear to auscultation bilaterally Cardio Palpation: normal PMI Heart sounds: S1 normal heart sound present, S2 normal heart sound present, no gallops, no murmurs and no rubs GI Palpation (GI): Soft to palpation Back/Spine/Pelvis Other: unremarkable Skin General skin exam: no rashes or lesions noted Neuro General: patient oriented x3 Extrem General: Yes normal to inspection Psych Mental Status: mental status grossly normal Assessment & Plan Assessment & Plan (1) Atherosclerotic cardiovascular disease: Code(s): I25.10 - Atherosclerotic heart disease of [place] coronary artery without angina pectoris Category: Medical Plan: Cardiac [id number] stents in the LAD and RCA. Mild diffuse disease in the mid to distal LAD. [id number] 50-55%. Basal inferior/inferoseptal hypokinesis. Mild aortic valve and mitral annular calcification. Continue aspirin and statins. Clinically, no angina. Liver enzymes are slightly abnormal the labs from September but that seems to have improved in subsequent labs from [facility]. We will need to get more recent labs from [place] as she apparently just had some done. Last LDL cholesterol from [facility] is 28 mg/dL. Triglycerides 79 mg/dL. (2) Orthostatic hypotension: Code(s): I95.1 - Orthostatic hypotension Category: Medical Plan: It seems she has tried midodrine in the past and that made her hypertensive. As she is still getting frequently dizzy, we can re-attempt midodrine 2.5 mg 3 times daily. They will monitor blood pressures and contact us if any concerns. (3) Nonrheumatic aortic (valve) stenosis: Code(s): I35.0 - Nonrheumatic aortic (valve) stenosis Category: Medical Plan: Lact-pl-ylokrwak aortic stenosis described in the recent echocardiogram. Discussed with patient and family. No implications at this time but willing to be followed up on echocardiogram. Natural course, treatment options discussed. Plan Discussed with family who came for appointment. We will request labs from [place]. Medications: New nitroglycerin do not exceed 3 doses per episode 0.4 mg sublingual Q5M PRN 30 tabs 5RF chest pain R07.2 - Precordial pain midodrine Take at 8am, 12pm, 4pm. Do not take after 6PM or within 4 hrs of bedtime. 2.5 mg PO TID 270 tabs 3RF 90 days Coding Level of Care Code Est Pt Level 4 (03588) Complex EM visit Add On G2211 Diagnoses Atherosclerotic cardiovascular disease I25.10 Orthostatic hypotension I95.1 Nonrheumatic aortic (valve) stenosis I35.0
--- OUTSIDE RECORDS SUMMARY | 2024-09-20 11:31 | XMS_ITS | Clinical Summary ---
Author Organization 175 [facility] Address [address] [place] [address] Phone Care Team Providers Care Repairer Screen Crusher Name Role Phone Didi Conner MD Primary Care Provider [phone] Allergies Active Allergy Reactions Criticality Noted Date [...] each 3 024 2024 Active blood-glucose sensor ([employer] G6 Sensor) device Change sensor every 10 [...] by mouth 2 (two) times a day. 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 023 2024 Discontinued(T herapy completed) pantoprazole (PROTONIX) 40 mg EC tablet Take 1 tablet (40 mg total) by mouth 2 (two) times a day. Take on empty stomach, wait 30 mins and then eat to activate the medication- before breakfast and supper 60 each 2024 Discontinued(P atient Discharge) omeprazole (PriLOSEC) [address] capsule Take 1 capsule (40 mg total) by mouth 2 (two) times a day before meals. On empty stomach, wait 30 minutes and then eat to activate medication-before breakfast and supper 60 each 2024 Discontinued(F ormulary change) omeprazole OTC (PriLOSEC [...] Overview (04/06/2024): with 4 stents placed (10/11/21, [facility]) NSTEMI 11/05 - cath showed open grafts no culprit lesion CHF (congestive heart failure) 09/23/2021 Charcot's joint arthropathy in type 2 diabetes m luísitus 06/11/2021 Overview (04/06/2024): Dr. Pal Microalbuminuria 01/07/2019 [...] Encounters Date Type Department Care Team Description 09/14/2024 8:30 AM EDT Office Visit Orthopedic Surgery [facility] [address] [phone] Roel Pal, DPM Ankle instability, unspecified laterality (Primary Dx); Acquired hammer toe of right foot; Hammer toe of left foot; Charcot joint of left foot; Charcot's joint of ankle, right; Dermatophytosis of nail [facility] [address] [phone] Thaddeus Christopher PA 09/05/[address] [phone] Thaddeus Christopher PA 09/01/2024 2:15 PM EDT Office Visit [address] [phone] Trini Montalvo PA 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, without long-term current use of insulin, unspecified laterality, unspecified retinopathy severity (CMS/HCC) (Primary Dx) 08/26/2024 Telephone Adult [address] [phone] Didi Conner MD Referral [facility] [address] [phone] Thaddeus Christopher PA 08/25[facility] [address] [phone] Thaddeus Christopher PA 08/22/[address] [phone] Trini Montalvo PA Med Refill 08/19/2024 [address]phone [place] [address] [place] [address] Trini Montalvo PA Medication 08/17/2024 Telephone Gastroenterology [facility] 175 [facility] [address] [phone] Thaddeus Christopher PA 08/17/2024 Telephone Gastroenterology [facility] 175 [facility] [address] [phone] Thaddeus Christopher PA provider call back 08/08/2024 9:18 AM EST - 08/08/2024 11:59 PM EST Hospital Encounter [facility] Xray [address] [place] [address] Diarrhea, unspecified type; Nausea; Gastroesophageal reflux disease without esophagitis; Fecal urgency; Dysphagia, unspecified type Discharge Disposition: Home or Self Care 08/04/2024 Telephone Gastroenterology [facility] [address] [phone] Thaddeus Christopher PA 07/22/2024 Telephone Gastroenterology [facility] [address] [phone] Thaddeus Christopher PA Prior Authorization 07/22/2024 Telephone Lung Screening Program - [place] [address] [facility] [address] [place] [address] Lesley Jacobs MA Results (Suspicious Findings) 07/20/2024 10:00 AM EST - 07/20/2024 11:59 PM EST Hospital Encounter [facility] CT Scan [address] [place] [address] Encounter for screening for lung cancer; History of tobacco use Discharge Disposition: Home or Self Care 07/20/2024 9:30 AM EST Office Visit Lung Screening Program - [place] [address] [phone] Roel Morales PA Encounter for screening for malignant neoplasm of lung in former smoker who quit in past 15 years with 30 pack year history or greater (Primary Dx); Tobacco use 07/15/2024 Telephone Adult Medicine [address] [phone] Didi Conner MD 07/15/2024 Telephone Adult Medicine [address] [phone] Didi Conner MD weight managment 06/28/2024 8:00 AM EST Office Visit Adult [address] [phone] Holly Olivarez PA Gastroesophageal reflux disease, unspecified whether esophagitis present (Primary Dx) 06/24/2024 Telephone Gastroenterology [facility] 175 [facility] 175 [facility] [address] [place] [address] Thaddeus Christopher PA 06/23/2024 Telephone Adult [address] [phone] Didi Conner MD Hospital Follow-up 06/23/2024 Telephone Endocrinology [address] [phone] Trini Montalvo PA Medication Problem from Last 3 Months Immunizations Name Administration Dates Next Due Hepatitis B (Bdicrkb-O-Aqcea , Recombivax HB-Adult) 19yo and older 06/15/1994 [...] obesity with BMI of 4 5.0-49.9, adult ([facility]) 05/17/2018 DX:Morbid obesity with BMI o f 45.0-49.9, adult ([facility]) Asthma 05/24/2012 DX:Asthma Anxiety 05/24/2012 DX:Anxiety Bilateral diabetic retinopat hy ([facility]) 06/02/2018 DX:Bilateral diabetic retino constantine ([facility]) 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 DX:Co ngenital anomaly of lung Essential (primary) hypertension 06/02/2018 DX:Essential (primary) hypertension Hyperlipidemia 05/24/2012 DX:Hyperlipidemi a Macular edema 06/02/2018 DX:Macular edema Major depressive disorder 05/24/2012 DX:Christopher or depressive disorder 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 ([facility]) 05/24/2012 DX: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 ([facility]) Verruca vulgaris 06/02/2018 DX:Verruca vulg nan Diverticulosis 06/04/2018 DX:Diverticulosi s Cervical radiculopathy 08/05/2018 DX:Cervic al radiculopathy Tobacco abuse 08/16/2018 DX:Tobacco abuse 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 ([facility]) 08/16/2018 DX:Type II diabetes mellitus with peripheral autonomic neuropathy ([facility]) Closed fracture of tarsal an d metatarsal bones of right foot 10/12/2018 DX:Closed fracture of t arsal and metatarsal bones of right foot Closed displaced fracture of navicular bone of right foot 10/12/2018 DX:Closed displaced fracture of navicular bone of right foot Type 2 diabetes with nephrop athy ([facility]) 01/07/2019 DX:Type 2 diabetes with neph ropathy ([facility]) Microalbuminuria 01/07/2019 DX:Microalbumin uria Charcot's joint arthropathy in type 2 diabetes mellitus ([facility]) 06/11/2021 DX:Charcot's joint arthrop athy in type 2 diabetes mellitus ([facility]); COMMENT: Dr. Pal Dependence on supplemental oxygen 07/18/2021 DX:Dependence on supplemental oxygen; COMMENT: To maintain O2 saturation above 90% CHF (congestive heart failur e) ([facility]) 09/23/2021 DX:CHF (congestive heart purvi lure) ([facility]) Fatty liver 09/28/2023 DX:Fatty liver Family History [...] care for your loved ones. For example, rn maternal child or elderly care for an older adult? [...] - - Weight 91.6 kg (202 lb) 09/14/2024 8:32 AM EDT Height 162.6 cm (5' 4.02 ) 09/14/2024 8:32 AM ED T Body Mass Index 34.66 09/14/2024 8:32 AM EDT Plan of Treatment Upcoming Encounters Date Type Department Care Team (Late st Contact Info) Description 09/22/2024 11:[address] [facility] CT Scan [address] [place] [address] 10/05/2024 9:10 AM EDT Appointment Radiology Department - [address] [phone] 10/17/2024 3:[address] [facility] CT Scan [address] [place] [address] 10/27/2024 8:45 AM EDT Office Visit Adult Medicine [facility] - [address] [phone] Didi Conner MD [address] [place] [address] 11/16/2024 8:30 AM EDT Office Visit Endocrinology - [place] [address] [place] [address] Trini Montalvo PA [address] [place] [address] 12/21/2024 8:30 AM EDT Office Visit Orthopedic Surgery - [place] [address] [phone] Roel Pal, DPM [address] [phone] Health Maintenance Due Date Last Done Comments [...] age to complete this topic Meningococcal B Vaccine Aged Out No l onger eligible based on patient's age to complete [...] of breast DIABETES EYE EXAM Routine 07/30/2023 HM HPV Routine 03/26/2022 HEPATITIS C SCREENING Routine 02/10/2022 COLONOSCOPY Routine 04/12/2018 from Last 3 Months or Most Recently Relevant to Health Maintenance Results * Endomysial antibody, IgA (09/01/2024 3:08 PM EDT) Endomysial IgA Negative Negative 09/08/2024 8:[address] [facility] Blood Venous blood specimen / Unknown Venipuncture / Unknown 09/01/2024 3:08 PM EDT 09/01/2024 3:08 PM EDT us Thaddeus CASTILLO LAB BLOOD ORDERABLES Final Resu lt [facility] [address] [place] [address], [place] [phone] * (ABNORMAL) CBC auto differential (09/01/2024 3:08 PM EDT) [facility] WBC 10.6 4.8 - 10.8 K/mcL LAB HEMETOLOGY METHOD 09/01/2024 4:[address] [facility] RBC 4.00 3.80 - 4.80 M/mcL LAB HEMETOLOGY METHOD 09/01/2024 4:[address] [facility] Hemoglobin 11.7 11.5 - 16.0 g/dL LAB HEMETOLOGY METHOD 09/01/2024 4:[address] [facility] Hematocrit 36.7 35.0 - 47.0 % LAB HEMETOLOGY METHOD 09/01/2024 4:[address] [facility] MCV 92.7 79.0 - 98.0 FL LAB HEMETOLOGY METHOD 09/01/2024 4:[address] [facility] MCH 29.5 27.0 - 32.0 pcg LAB HEMETOLOGY METHOD 09/01/2024 4:[address] [facility] MCHC 31.9(L) 32.0 - 37.0 g/dL LAB HEMETOLOGY METHOD 09/01/2024 4:[address] [facility] RDW 13.1 11.0 - 15.0 % LAB HEMETOLOGY METHOD 09/01/2024 4:[address] [facility] Platelets 301 130 - 400 K/mcL LAB HEMETOLOGY METHOD 09/01/2024 4:[address] [facility] MPV 9.7 7.0 - 11.0 FL LAB HEMETOLOGY METHOD [facility] NRBC 0.0 <1.0 % LAB HEMETOLOGY METHOD 09/01/2024 4:[address] [facility] NRBC Absolute 0.00 <0.10 K/mcL LAB HEMETOLOGY METHOD 09/01/2024 4:[facility] Neutrophils Relative 68.2 % LAB HEMETOLOGY METHOD 09/01/2024 4:33 PM [facility] Lymphocytes Relative 22.5 % LAB HEMETOLOGY METHOD 09/01/2024 4:[address] [facility] Monocytes Relative 4.5 % LAB HEMETOLOGY METHOD 09/01/2024 4:33 PM [facility] Eosinophils Relative 3.9 % LAB HEMETOLOGY METHOD 09/01/2024 4:33 PM [facility] Basophils Relative 0.4 % LAB HEMETOLOGY METHOD 09/01/2024 4:33 PM [facility] Immature Granulocytes Relative 0.5 % LAB HEMETOLOGY METHOD 09/01/2024 4:33 [facility] Neutrophils Absolute 7.22(H) 1.50 - 7.00 K/mcL LAB HEMETOLOGY METHOD 09/01/2024 4:33 [facility] Lymphocytes Absolute 2.38 1.00 - 5.00 K/mcL LAB HEMETOLOGY METHOD 09/01/2024 4:33 PM [facility] Monocytes Absolute 0.48 0.20 - 1.00 K/mcL LAB HEMETOLOGY METHOD 09/01/2024 4:[address] [facility] Eosinophils Absolute 0.41 0.00 - 0.50 K/[facility] LAB HEMETOLOGY METHOD 09/01/2024 4:[address] [facility] Basophils Absolute 0.04 0.00 - 0.20 K/mcL LAB HEMETOLOGY METHOD 09/01/2024 4:[address] [facility] Immature Granulocytes Absolute 0.05(H) 0.00 - 0.03 K/[facility] LAB HEMETOLOGY METHOD 09/01/2024 4:[address] [facility] Blood Venous blood specimen / Unknown Venipuncture / Unknown 09/01/2024 3:08 PM EDT 09/01/2024 3:08 PM EDT Thaddeus CASTILLO LAB BLOOD ORDERABLES Final Resu lt [facility] [address] [place] [address], [place] [phone] * Gliadin antibodies, serum (09/01/2024 3:08 PM EDT) Gliadin IgA 5 <20 units LAB CHEMISTRY METHOD 09/07/2024 1:[address] [facility] Gliadin IgG 1 <20 units LAB CHEMISTRY METHOD 09/07/2024 1:[address] [facility] Gliadin IgA Antibody Negative Negative LAB CHEMISTRY METHOD 09/07/2024 1:[address] [facility] Gliadin IgG Antibody Negative Negative LAB CHEMISTRY METHOD 09/07/2024 1:[address] [facility] Blood Venous blood specimen / Unknown Venipuncture / Unknown 09/01/2024 3:08 PM EDT 09/01/2024 3:08 PM EDT us Thaddeus CASTILLO LAB BLOOD ORDERABLES Final Resu lt [facility] [address] [place] [address], [place] [phone] * Tissue transglutaminase, IgA (09/01/2024 3:08 PM EDT) Tissue Transglutaminase Ab, IgA Quant 2 <4 unit/mL LAB CHEMISTRY METHOD 09/07/2024 1:[address] [facility] Tissue Transglutaminase Ab, IgA Negative Negative LAB CHEMISTRY METHOD 09/07/2024 1:[address] [facility] Blood Venous blood specimen / Unknown Venipuncture / Unknown 09/01/2024 3:08 PM EDT 09/01/2024 3:08 PM EDT Thaddeus CASTILLO LAB BLOOD ORDERABLES Final Resu lt [facility] [address] [place] [address], [place] [phone] * (ABNORMAL) Hemoglobin A1c (09/01/2024 3:08 PM EDT) Hemoglobin A1C 7.9(H) <6.5 % LAB CHEMISTRY METHOD 09/01/2024 6:[address] [facility] Mean Bld Glu Estim. 180 mg/dL LAB CHEMISTRY METHOD 09/01/2024 6:[address] [facility] Blood Venous blood specimen / Unknown Venipuncture / Unknown 09/01/2024 3:08 PM EDT 09/01/2024 3:08 PM EDT Trini CASTILLO LAB BLOOD ORDERABLES Final Result [facility] [address] [place] [address], [place] [phone] * (ABNORMAL) Immunoglobulin IgA (09/01/2024 3:08 PM EDT) Pathologist [facility] IgA 367(H) 61 - 348 mg/dL LAB CHEMISTRY METHOD 09/01/2024 6:[address] [facility] Blood Venous blood specimen / Unknown Venipuncture / Unknown 09/01/2024 3:08 PM EDT 09/01/2024 3:08 PM EDT us Thaddeus CASTILLO LAB BLOOD ORDERABLES Final Resu lt [facility] [address] [place] [address], [place] [phone] * (ABNORMAL) Comprehensive metabolic panel (09/01/2024 3:08 PM EDT) Pathologist [facility] Sodium 136 133 - 145 mmol/L LAB CHEMISTRY METHOD 09/01/2024 6:[address] [facility] Potassium 5.1 3.5 - 5.5 mmol/L LAB CHEMISTRY METHOD 09/01/2024 6:23 PM [facility] Chloride 100 96 - 110 mmol/L LAB CHEMISTRY METHOD 09/01/2024 6:23 PM [facility] CO2 27 21 - 32 mmol/L LAB CHEMISTRY METHOD 09/01/2024 6:[address] [facility] Anion Gap 9 3 - 11 LAB CHEMISTRY METHOD 09/01/2024 6:23 PM [facility] Glucose 224(H) 70 - 100 mg/dL LAB CHEMISTRY METHOD 09/01/2024 6:23 PM [facility] BUN 28(H) 5 - 25 mg/dL LAB CHEMISTRY METHOD 09/01/2024 6:23 PM [facility] Creatinine 1.08 0.50 - 1.10 mg/dL LAB CHEMISTRY METHOD 09/01/2024 6:23 PM [facility] eGFR 60 >=60 mL/min/1. 73m2 LAB CHEMISTRY METHOD 09/01/2024 6:23 PM [facility] Comment:Calculation based on the??Chronic Kidney Disease Epidemiology Collaboration (CKD-EPI) equation refit??without adjustment for race. BUN/Creatinine Ratio 25.9 LAB CHEMISTRY METHOD 09/01/2024 6:[address] [facility] Calcium 9.7 8.5 - 10.5 mg/dL LAB CHEMISTRY METHOD 09/01/2024 6:23 PM [facility] AST (SGOT) 15 10 - 42 unit/L LAB CHEMISTRY METHOD 09/01/2024 6:23 PM [facility] ALT (SGPT) 28 10 - 60 unit/L LAB CHEMISTRY METHOD 09/01/2024 6:23 PM [facility] Alkaline Phosphatase 123(H) 42 - 121 unit/L LAB CHEMISTRY METHOD 09/01/2024 6:23 PM [facility] Total Protein 6.9 6.0 - 8.0 g/dL LAB CHEMISTRY METHOD 09/01/2024 6:23 PM [facility] Albumin 3.3 3.2 - 5.0 g/dL LAB CHEMISTRY METHOD 09/01/2024 6:23 PM [facility] Total Bilirubin 0.6 0.0 - 1.4 mg/dL LAB CHEMISTRY METHOD 09/01/2024 6:23 PM [facility] Blood Venous blood specimen / Unknown Venipuncture / Unknown 09/01/2024 3:08 PM EDT 09/01/2024 3:08 PM EDT us Thaddeus CASTILLO LAB BLOOD ORDERABLES Final Resu lt [facility] [address] [place] [address], [place] [phone] * XR Esophagram (08/08/2024 9:59 AM EST) [...] Signed Date: 08/08/2024 11:13 ET Workstation ID: [id number] Transcribed By: Self Edit Transcribed Date: 08/08/2024 11:06 ET Resident/PA/THEATER SET PRODUCTION DESIGNER: Paulina Edwards Narrative 08/08/2024 11:13 AM EST FINDINGS: Double contrast esophagram performed. COMPARISON: No prior esophagram imaging HISTORY: Patient is a 54-year-old female with history of dysphagia, globus sensation, painful swallowing. Inconclusive endoscopy due to esophageal debris. Hemmer Lockstitch radiographs: 1 view chest radiograph demonstrates cardiac [...] painful swallowing. Inconclusive endoscopy due to esophagealdebris. Hemmer Lockstitch radiographs: 1 view chest radiograph demonstrates cardiac [...] Signed Date: 08/08/2024 11:13 ET Workstation ID: [id number] Transcribed By: Self Edit Transcribed Date: 08/08/2024 11:06 ET Resident/PA/THEATER SET PRODUCTION DESIGNER: Paulina Edwards Thaddeus CASTILLO IMG FLUOROSCOPY PROCEDURES Kerri panda Result * CT Lung Screening (07/20/2024 10:12 [...] Signed Date: 07/21/2024 14:48 ET Workstation ID: [id number] Transcribed By: Self Edit Transcribed Date: 07/21/2024 [...] throughout the bones. us Reyna Alcazar MD IM CT PROCEDURES Final Result * Lipid panel with reflex to direct LDL (05/06/2024 9:53 AM EST) Cholesterol 120 0 - 200 mg/dL LAB CHEMISTRY METHOD 05/06/2024 3:10 PM [facility] Triglycerides 135 0 - 150 mg/dL LAB CHEMISTRY METHOD 05/06/2024 3:10 PM [facility] HDL 67 >=40 mg/dL LAB CHEMISTRY METHOD 05/06/2024 3:10 PM [facility] LDL Calculated 26 0 - 100 mg/dL LAB CHEMISTRY METHOD 05/06/2024 3:10 PM [facility] VLDL Cholesterol Tavon 27 mg/dL LAB CHEMISTRY METHOD 05/06/2024 3:10 PM [facility] Non HDL Chol. (LDL+VLDL) 53 <145 mg/dL LAB CHEMISTRY METHOD 05/06/2024 3:10 PM [facility] Chol/HDL Ratio 1.8 0.0 - 4.4 LAB CHEMISTRY METHOD 05/06/2024 3:10 PM [facility] Blood Venous blood specimen / Unknown Venipuncture / Unknown 05/06/2024 9:53 AM EST 05/06/2024 9:53 AM EST us Holly CASTILLO LAB BLOOD ORDERABLES Final Re sult Performing Organization Address City/[facility]/ZIP Co de Phone Number [facility] [address] [place] [address], [place] [phone] * (ABNORMAL) Microalbumin creatinine urine ratio (05/06/2024 9:53 AM EST) Creatinine, Urine 70.0 mg/dL LAB CHEMISTRY METHOD 05/06/2024 3:[address] [facility] Microalb, Ur 50.3(H) 0.0 - 29.0 mg/L LAB CHEMISTRY METHOD 05/06/2024 3:[address] [facility] Microalb/Crea t Ratio 72(H) <30 mg/g creat LAB CHEMISTRY METHOD 05/06/2024 3:[address] [facility] Urine Urine specimen from urethra / Unknown Non-blood Collection / Unknown 05/06/2024 9:53 AM EST 05/06/2024 9:53 AM EST us Holly CASTILLO LAB URINE ORDERABLES Final Re sult Performing Organization Address [facility] Co de Phone Number [facility] [address] [place] [address], [place] [phone] * DIAGNOSTIC MAMMOGRAPHY WITH CAD UNILATERAL (04/06/2024 [...] screening exam. BI-RADS 3, probably benign findings. Gagan Brandt DO IMG BI PROCEDURES Final Resul t * Diabetes Eye Exam (07/30/2023) [facility] Diabetes: Annual Retina Eye Exam abstracted Result [facility] Provider HEALTH MAINTENANCE Final Result * Cervical Cancer Screening: HPV (03/26/2022) [facility] Cervical Cancer Screening: HPV negative, abstracted Result [facility] Provider HEALTH MAINTENANCE Final Result * Hepatitis C Screening (02/10/2022) [facility] Hepatitis C Screening abstracted Result [facility] Provider HEALTH MAINTENANCE Final Result * Colonoscopy (04/12/2018) Colonoscopy no interpretation , abstracted Anatomical Region Laterality Modality Other Historical Provider HEALTH MAINTENANCE Final Result from Last 3 Months or Most Recently Relevant to Health Maintenance Insurance , [facility] [address] [place] [address] [employer] MEDICARE Member Subscriber Plan / Payer (Ef fective 2019-Present) Name:Ciera Haas Relation to Subscriber:Self Name:Ciera Haas Payer ID:[id number] Group ID:[id number] Type:Not on file Address: [place] [address] [phone] Care Teams Repairer Screen Crusher Relationship Specialty Start Date End Date Didi Conner MD [address] [place] [id number] PCP - General Internal Medicine 08/16/21
--- OUTSIDE RECORDS SUMMARY | 2024-09-20 11:31 | XMS_ITS | Clinical Summary ---
Author Organization [facility] Address [address] [place] [address] Care Team Providers Care Crutching Contractor Name Role Phone Leti Ballesteros MD Primary Care Provider [phone] Allergies Active Allergy Reactions Criticality Noted Date [...] age to complete this topic Care Teams Crutching Contractor Relationship Specialty Start Date End Date Leti Ballesteros MD PCP - General Internal Medicine 05/05/19
--- OUTSIDE RECORDS SUMMARY | 2024-09-20 11:31 | XMS_ITS | Encounter Summary ---
Author Organization [facility] Address [address] [place] [address] Care Team Providers Care Coremaker Machine Name Role Phone Didi Conner MD Primary Care Provider [phone] Reason for Referral * Consultation (Routine) - Authorized Specialty Diagnoses / Procedures Referred By Contmagnus t Referred To Contact Plastic Surgery Diagnoses Excessive body weight loss Didi Conner MD [address] [place] [address] Phone: tel: fax: Huan Farah MD [address] [place] [address] [address] Phone: tel: fax: Referral ID Status Reason Start Date Expiration Date Visits Requested Visits Authorized [id number] Authorized Specialty Services Required 08/26/2024 08/26/2025 1 1 Reason for Visit * Reason Onset Date Comments Referral 08/26/2024 Encounter Details Date Type Department Care Team (Late st Contact Info) Description 08/26/2024 Telephone Adult Medicine [address] [phone] Didi Conner MD [address] [place] [address] Referral Social History Tobacco Use Types Packs/Day [...] your loved ones. For example, child care education coordinator or elderly care for an older [...] insurance does the patient have today? Payor[facility] MEDICARE / Plan: [facility] ONE CARE / Product Type: *No Product type* / Referrals cannot be processed if the insurance is not accurate. If the insurance listed above in red is NO BILLING INFORMATION FOUND FOR THIS ENCOUTNER The patients correct insurance must be obtained and registered in [facility] or their referral can not be [...] this visit: Initial Visit Address of Specialist: [address] [place] [address], [address] [place] [address] Phone # of Specialist: [phone] Fax #: (if applicable): [phone] Attention to tito Other fax # [phone] Does patient have an appointment scheduled?: no Date of appointment- (including a retro-request): Is this appointment related to: Not MVA, worker compensation, or surgery related documented in this encounter Plan of Treatment Upcoming Encounters Date Type Department Care Team (Late st Contact Info) Description 09/22/2024 11:00 AM EDT Appointment [facility] CT Scan [address] [place] [address] 10/05/2024 9:10 AM EDT Appointment Radiology Department - [address] [phone] 10/17/2024 3:30 PM EDT Appointment [facility] CT Scan [address] [place] [address] 10/27/2024 8:45 AM EDT Office Visit Adult Medicine South - [address] [phone] Didi Conner MD [address] [place], [place] 11/16/2024 8:30 AM EDT Office Visit Endocrinology - [address] [phone] Trini Montalvo PA [address] [place] [address] 12/21/2024 8:30 AM EDT Office Visit Orthopedic Surgery [facility] [address] [phone] Roel Pal DPQuintin [address] [address] Scheduled Referrals Name Type Priority Associated Diagnoses [...] documented as of this encounter Care Teams Coremaker Machine Relationship Specialty Start Date End Date Didi Conner MD [address] [place] [address] PCP - General Internal Medicine 08/16/21 documented as of this encounter
--- OUTSIDE RECORDS SUMMARY | 2024-09-20 11:31 | XMS_ITS | Encounter Summary ---
Author Organization [facility] [place] [address] Care Team Providers Care Game Preserve Manager Name Role Phone Didi Conner MD Primary Care Provider [phone] Reason for Visit * Reason Onset Date Comments Medication 08/19/2024 Encounter Details Date Type Department Care Team ([facility] Contact Info) Description 08/19/2024 Telephone [facility] [address] [place] [address] Trini Montalvo PA [address] [place] [address] Medication Social History Tobacco Use Types Packs/Day [...] for your loved ones. For example, child and family counselor or elderly care for an older [...] is being discontinued. Please advise patient at [phone] documented in this encounter Plan of Treatment Upcoming Encounters Date Type Department Care Team (Late st Contact Info) Description 09/22/2024 11:00 AM EDT Appointment [facility] CT Scan [address] [place] [address] 10/05/2024 9:10 AM EDT Appointment Radiology Department - [address] [phone] 10/17/2024 3:30 PM EDT Appointment [facility] CT Scan [address] [place] [address] 10/27/2024 8:45 AM EDT Office Visit Adult Medicine South - [address] [phone] Didi Conner MD [address] [place] [address] 11/16/2024 8:30 AM EDT Office Visit Endocrinology - [address] [phone] Trini Montalvo PA [address] [place] [address] [address] 12/21/2024 8:30 AM EDT Office Visit Orthopedic Surgery - [place] [address] [phone] Roel Pal, DPM [address] [address] documented as of this encounter Visit Diagnoses Not on filedocumented in this encounter Additional Health Concerns Assessment Noted Time PHQ-9 Depression Total Score: 7 04/29/20 24 6:00 PM EST documented as of this encounter Care Teams Game Preserve Manager Relationship Specialty Start Date End Date Didi Conner MD [address] [place] [address] PCP - General Internal Medicine 08/16/21 documented as of this encounter
--- OUTSIDE RECORDS SUMMARY | 2024-09-20 11:31 | XMS_ITS | Patient Health Record ---
Author Organization [facility] Address [address] [place] [address] Care Team Providers Care Crackling Press Operator Name Role Phone Holly Ramirez Unavailable [phone] Allergies Allergen (clinical drug ingredient) Drug/Non Drug [...] Problem Status W/U Status Risk Notes Problem 040539372 Hammer toe of ri ght foot (M20.41) Active confirmed Problem 311860912 Hammer toe of le ft foot (M20.42) Active confirmed Problem 93982903 Unstable gait (R26.81) Active confirmed Problem 427780448 Charcot foot due to diabetes mellitus (E11.610) Active confirmed Problem 31876492 Type 2 diabetes mellitus with polyneuropathy (E11.42) Active confirmed Problem 49167540 Type 2 diabetes mellitus with foot ulcer (E11.621) Active confirmed Problem 58905129 Non-pressure ulc er of left lower extremity with fat layer exposed (L97.922) Active confirmed Problem 162027493 Charcot's joint of right foot (M14.671) Active confirmed Problem 528791218 Charcot's joint of left foot (M14.672) Active [...] Insured Coverage Start Date Coverage End Date [facility] S[employer] Claims [address] [place] [address] [id number] Ciera Haas Self - patient is the [...]
--- OUTSIDE RECORDS SUMMARY | 2024-09-20 11:31 | XMS_ITS | Encounter Summary ---
Author Organization [facility] Address [address] [place] [address] Care Team Providers Care Calibrator Barometers Name Role Phone Didi Conner MD Primary Care Provider [phone] Reason for Visit * Reason Onset Date Comments provider call back 08/17/2024 Encounter Details Date Type Department Care Team ([facility] st Contact Info) Description 08/17/2024 Telephone Gastroenterology - [place] [address] [place] [phone] Thaddeus Christopher PA [address] [place] [address] provider call back Social History Tobacco Use [...] your loved ones. For example, child and adolescent therapist or elderly care for an older adult? [...] Info) Description 09/22/2024 11:00 AM EDT Appointment [facility] CT Scan [address] [place] [address] 10/05/2024 9:10 AM EDT Appointment Radiology Department - [address] [phone] 10/17/2024 3:30 PM EDT Appointment [facility] CT Scan [address] [place] [address] 10/27/2024 8:45 AM EDT Office Visit Adult Medicine South - [address] [phone] Didi Cnoner MD [address] [place] [address] 11/16/2024 8:30 AM EDT Office Visit Endocrinology - [address] [phone] [facility] [place] [address] 12/21/2024 8:30 AM EDT Office Visit Orthopedic Surgery [facility] [address] [phone] Roel Pal DPM [address] [address] documented as of this encounter Visit Diagnoses Not on filedocumented in this encounter Additional Health Concerns Assessment Noted Time PHQ-9 Depression Total Score: 7 04/29/20 24 6:00 PM EST documented as of this encounter Care Teams Calibrator Barometers Relationship Specialty Start Date End Date Didi Conner MD [address] [place] [address] PCP - General Internal Medicine 08/16/21 documented as of this encounter
== END 2024-09-20 10:42 | disposition home or self-care (01) ==
LOC: HO.HCS 09:57
PROVIDERS: PCP Internal Medicine; Visit Provider Internal Medicine
DX: I25.10 Atherosclerotic heart disease of native coronary artery without angina pectoris (principal); I95.1 Orthostatic hypotension; I35.0 Nonrheumatic aortic (valve) stenosis
CPT/HCPCS: 99214; G2211

== ENCOUNTER → 2024-09-20 09:57 | Outpatient (BNVA) | payer OTHER, SELFPAY | PROVIDERS: PCP Internal Medicine; Visit Provider Internal Medicine | DX: I25.10 Atherosclerotic heart disease of native coronary artery without angina pectoris (principal); I35.0 Nonrheumatic aortic (valve) stenosis; I95.1 Orthostatic hypotension | CPT/HCPCS: 99212 ==

== ENCOUNTER 2024-12-26 14:28 | Outpatient (AMB) | payer OTHER, SELFPAY ==
[2024-12-26 15:13] VITALS: BP 110/64; PULSE 97; O2SAT 94; BMI 34.0
--- NOTE | 2024-12-26 15:13 | MHC.OFFVIS ---
Vital Signs 12/26/24 15:13 Height 5 ft 4 in Weight 198 lb BMI 34.0 BP 110/64 Blood Pressure Location Rt brachial Position Sitting Pulse 97 Pulse Source Pulse Oximeter Pulse Oximetry (%) 94 Oxygen Delivery Method Room Air Intake Visit Reasons: COPD. lung cancer screening Allergies adhesive tape (ADHESIVE TAPE) Allergy (Intermediate, Verified 12/26/24 15:19) BLISTERS tramadol (TRAMADOL) Allergy (Intermediate, Verified 12/26/24 15:19) NAUSEA & VOMITING oxycodone (OXYCODONE) Adverse Reaction (Intermediate, Verified 12/26/24 15:19) ITCHING HPI HPI COPD. lung cancer screening: Details: 54-year-old lady, nonsmoker, with underlying history of obesity, asthma, and prior? COVID-19 infection, previously on supplemental O2 at 1.5 L, here for follow-up, now off supplemental oxygen.? She continues to use Spiriva, Advair, and albuterol MDI with good control of her underlying symptoms. She denies recent exacerbations. Patient does have recurrent cough that appears to be associated with underlying recurrent pulmonary aspiration secondary to esophageal stricture for which she is being worked up at this time by Gastroenterology. [facility] Medical History Diabetic Charcot's foot Cataract of both eyes Supplemental oxygen dependent COVID-19 Asthma Cholecystectomy planned Hernia of abdominal wall delivery delivered Depression High cholesterol Tachycardia Diabetes Surgical History History of cataract surgery History of excision of pilonidal cyst Hx of oophorectomy Hx of umbilical hernia repair Hx of colonoscopy Hx of cholecystectomy Hx of section Hx of cardiac catheterization History of esophagogastroduodenoscopy (EGD) H/O foot surgery Family History Father No problems noted. Mother Lung cancer Sister H/O heart artery stent Social History Household Members: Other Household Members Other:: sister Housing: House Housing Other:: stays in hotel waiting for housing Are you a primary special needs caregiver to a significant other at home: No Do you presently have visiting nurse or other home services: Yes ([employer] 16 hours/week) Alcohol intake: never Patient Tobacco Use Status: Former Tobacco user Tobacco use type: Cigarette Second Hand Smoke Exposure: No Substance Use Type: Marijuana service: No Current occupational status: disabled Review of Systems Const Denies daytime sleepiness, Denies excessive sweating, Denies fatigue, Denies fever(s), Denies lethargy, Denies malaise, Denies night sweats, Denies snoring and Denies weight loss Eyes Denies blurry vision and Denies itchy eyes ENT Denies nasal congestion, Denies post nasal drip, Denies sinus pain, Denies sinus pressure and Denies other ( Thrush) Card Denies chest pain, Denies pedal edema, Denies dyspnea, Denies orthopnea and Denies paroxysmal nocturnal dyspnea Resp Reports cough, Denies hemoptysis, Denies excessive phlegm production, Denies dyspnea, Denies snoring and Denies wheezing GI Denies abdominal pain and Denies heartburn Musc Denies myalgias, Denies arthralgias and Denies joint swelling Skin/Breast Denies rash Neuro Denies memory loss and Denies seizure-like activity Psych Denies abnormal sleep pattern, Denies anxiety and Denies memory loss Endo Denies excessive sweating, Denies fatigue and Denies heat intolerance Behzad/Lymph Denies easy bruising Aller/Immun Denies itchy eyes, Denies seasonal rhinorrhea and Denies wheezing Physical Exam Vital Signs: Last Vital Signs Pulse 97 12/26/24 15:13 BP 110/64 12/26/24 15:13 Pulse Ox 94 12/26/24 15:13 Oxygen Delivery Method Room Air 12/26/24 15:13 BMI result Body Mass Index 34.0 Const General: no acute distress and alert Nutritional Appearance: obese Orientation/consciousness: Other orientation findings ( oriented) HEENT Head: Yes atraumatic Eyes General: appearance normal, both eyes and all related structures Sclerae: sclerae normal EOM: EOMs intact bilaterally Neck Neck: Yes supple Lymphatic: no lymphadenopathy noted Resp Effort & Inspection: normal respiratory effort and no use of accessory muscles Auscultation: clear to auscultation bilaterally Cardio Rate: regular rate Rhythm: regular rhythm Heart sounds: no gallops, no murmurs and no rubs Skin General skin exam: other ( warm) Extrem General: No clubbing, No cyanosis and No edema Assessment & Plan Assessment & Plan (1) Asthma: Code(s): J45.909 - Unspecified asthma, uncomplicated Category: Medical Qualifiers: Asthma complication type: with acute exacerbation Asthma persistence: persistent Asthma severity: moderate Qualified Code(s): J45.41 - Moderate persistent asthma with (acute) exacerbation Plan: Well controlled on current regimen of Advair, Spiriva, and albuterol MDI. Continue current regimen. (2) Recurrent cough: Code(s): R05.8 - Other specified cough Category: Medical Plan: With significant aspiration component secondary to underlying esophageal stricture for which patient is being worked up at this time by gastroenterology service. Coding Level of Care Code Est Pt Level 4 (04041) Diagnoses Asthma J45.41 Asthma complication type: with acute exacerbation Asthma persistence: persistent Asthma severity: moderate Recurrent cough R05.8
--- OUTSIDE RECORDS SUMMARY | 2024-12-26 15:49 | XMS_ITS | Patient Health Record ---
Author [facility] Address [address] [place] [address] Care Team Providers Care Executive Chairman Of The Board Name Role Phone Holly Ramirez Unavailable [phone] Allergies Allergen (clinical drug ingredient) Drug/Non Drug [...] MG 1 capsule Orally Onc e a day; Duration: 30 day(s) Active Pravastatin Sodium 20 MG 1 tablet Orally Once a day; Duration: 30 day(s) Active dilTIAZem HCl ER Beads 240 MG 1 capsule Orally Once a day; Duration: 30 day(s) Active Loratadine 10 MG 1 tablet Orally Once a day; Duration: 30 day(s) Active Advair HFA 115-21 MCG/ACT 2 puffs Inhalation Twice a day Active NovoLOG 100 UNIT/ML as directed Subcutaneous Active DULoxetine HCl 20 MG 1 capsule Orally Tw ice a day; Duration: 30 day(s) Active Ipratropium-Albuterol 0.5-2.5 (3) MG/3ML [...] 10 MG 1 tablet Orally Once a day; Duration: 30 day(s) Active buPROPion HCl ER (XL) 150 MG 1 tablet in the morning Orally Once a day; Duration: 30 day(s) Active Physical Therapy . . . 2-3x/week; Durat ion: 3-4 weeks 12/07/2019 Active ASO Ankle/Foot Stablizing AFO As directed Wear Daily; Duration: as needed 12/07/2019 Active Custom Orthotics as directed 04/10/2021 Active Melatonin ER 10 MG as directed Orally Active Custom Orthotics as directed A ctive Ibuprofen 600 MG 1 tablet with food o r milk as needed Orally Three times a day Active Basaglar KwikPen 100 UNIT/ML as directed Subcutaneous Not -Taking Aspirin 325 MG 1 tablet Orally Once a day; Duration: 30 day(s) Active Walker as directed With whe els and seat 01/25/2020 Active Omeprazole 20 MG 1 capsule 30 minutes before morning meal Orally Once a day; Duration: 30 day(s) Active Lantus 100 UNIT/ML as directed Subcutaneous Active metFORMIN HCl 1000 MG 1 tablet with a me al Orally Once a day; Duration: 30 day(s) Active Immunizations Vaccine Route Administration [...] Problem Status W/U Status Risk Notes Problem Acquired hammer toe of right foot (1247737716786382 ) Hammer toe of right foot (M20.41) Active confirmed Problem Acquired hammer toe of left foot (5334062565781275 ) Hammer toe of left foot (M20.42) Active confirmed Problem Abnormal gait (38408335) Unstable gait (R26.81) Active confirmed Problem 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) Charcot foot due to diabetes mellitus (E11.610) Active confirmed Problem Polyneuropathy due to type 2 diabetes mellitus (496293040) Type 2 diabetes mellitus with polyneuropathy (E11.42) Active confirmed Problem Foot ulcer due to type 2 diabetes mellitus (1509511683881) Type 2 diabetes mellitus with foot ulcer (E11.621) Active confirmed Problem Ulcer of left lower leg (disorder) (2400317802940186 3) Non-pressure ulcer of left lower extremity with fat layer exposed (L97.922) Active confirmed Problem Arthropathy associated with a neurological disorder (34146262) Charcot's joint of right foot (M14.671) Active confirmed Problem Arthropathy associated with a neurological disorder (80024181) Charcot's joint of left foot (M14.672) Active [...] Insured Coverage Start Date Coverage End Date [facility] [employer] S[employer] Claims [address] [place] [address] [id number] Ciera Haas Self - patient is the [...]
--- OUTSIDE RECORDS SUMMARY | 2024-12-26 15:49 | XMS_ITS | Clinical Summary ---
Author Organization [facility] Address [address] [place] [address] Care Team Providers Care Signalman Name Role Phone Leti Ballesteros MD Primary Care Provider [phone] Allergies Active Allergy Reactions Criticality Noted Date [...] o f 2) 2018 Influenza Vaccine (#1) 2025 9, 03/23/2014 DTap / Tdap / Td (2 - Td or Tdap) 08/16/2028 08/16/2018, 03/15/2006 RSV Ped < 20 months Aged Out No longe r eligible based on patient's age to complete this topic Care Teams Signalman Relationship Specialty Start Date End Date Leti Ballesteros MD PCP - General Internal Medicine 05/05/19
--- OUTSIDE RECORDS SUMMARY | 2024-12-26 15:49 | XMS_ITS | Patient Health Record ---
Author Organization [facility] Address [address] [place] [address] Care Team Providers Care Retail Account Manager Name Role Phone Walker, Leti Primary Care Provider Yoel Metzger Unavailable [phone] Allergies Allergen (clinical drug ingredient) Drug/Non Drug Allergy documented on EMR Reaction Allergy Type Onset Date Status tramadol Tramadol HCl Unknown Drug Allergy Acti ve acetaminophen / oxycodone Percocet Unknown Drug Allergy Active adhesive (uncoded) Unknown Allergy A ctive Reason For Referral No Information Medications Medication SIG (Take, Route, Frequency, Duration) Notes Start Date End Date Status Advair HFA 115-21 MCG/ACT 2 puffs Inhala tion Twice a day Active Victoza 18 MG/3ML injection Subcutaneo us as directed Active Prilosec 20 MG 1 capsule Orally twi ce a day Active NovoLOG 100 UNIT/ML injection Subcutaneo us as directed Active Abilify 10 MG 1 tablet Orally Once a day Active ProAir HFA 108 (90 Base) MCG/ACT 2 puffs as needed Inhalation every 6 hrs Active Cardizem LA 240 MG 1 tablet at the same time each day Orally Once a day Activ e MiraLax - 1 packet mixed with 8 ounces of fluid Orally Once a day Active Pravastatin Sodium 20 MG TAKE 1 TABLET B Y MOUTH IN THE EVENING FOR 30 DAYS. Oral for 30 Active DULoxetine HCl 60 MG TAKE 1 CAPSULE BY M OUTH EVERY MORNING Oral for 30 Active buPROPion HCl ER (XL) 150 MG TAKE 1 TABLET BY MOUTH EVERY MORNING Oral for 30 Active Basaglar KwikPen 100 UNIT/ML injection Subcutaneous as directed Active metFORMIN HCl 1000 MG 1 tablet with meal s Orally Twice a day Active Immunizations Vaccine Route Administration Date Status Comme nts Influenza Unknown 02/13/2017 Administered Social History Tobacco Use: Social History Observation Description Date Details (start date - stop date) Former Smoker NA - NA Tobacco Use/Smoking Question Answer Notes Patient is a former smoker How long has it been since you last smoked? 1-5 years Alcohol Screen Question Answer Notes Did you have a drink containing alcohol in the p ast year? No Points 0 Interpretation Negative Section Notes: Nonsmoker since 2013; no alc ohol Problems Problem Type SNOMED Code ICD Code Onset Dates Problem Status W/U Status Risk Notes Problem 336649464 Encounter for screening for malignant neoplasm of colon (Z12.11) Active confirmed Problem 622802172 Gastroesophageal reflux disease, esophagitis presence not specified (K21.9) Active confirmed Problem 82623965 Irritable bowel syndrome, unspecified type (K58.9) Active confirmed Plan Of Treatment Future Test Test Name Order Date UPPER GI ENDOSCOPY 09/11/2017 COLONOSCOPY 09/11/2017 Insurance Providers Payer Name Payer Address Payer Phone Subscriber Number Group Number Insured Name Patient Relationship to Insured Coverage Start Date Coverage End Date MEDICARE OF [place] [address] [place] [address] [id number] ADDISONEZEDOTTY Self - patient is the insured MEDICAID OF [facility] [address] [place] [address] [id number] ADDISON DOTTY Self - patient is the insured Medical (General) History Medical History History ICD Code IDDM Tachycardia--negative cardiac cath in ap prox 2016 at [facility] Asthma Environmental allergies GERD Denies [place],CVA,renal disease Depression Hyperlipidemia Surgical History Surgery Date(Month/Year) x 3 Cholecystectomy Umbilical hernia repair Pilonidal cyst
--- OUTSIDE RECORDS SUMMARY | 2024-12-26 15:49 | XMS_ITS | Encounter Summary ---
Author Organization [facility] Address [address] [place] [address] Care Team Providers Care Breakfast Cook Name Role Phone Didi Conner MD Primary Care Provider [phone] Encounter Details Date Type Department Care Team Description 09/10/2021 Hospital Medical Records [address] [place] [address] Adi Quintana MD Social History Tobacco Use [...] on filedocumented in this encounter Care Teams Breakfast Cook Relationship Specialty Start Date End Date Didi Conner MD [address] [place] [address] PCP - General Internal Medicine 08/16/21 documented as of this encounter
== END 2024-12-26 15:28 | disposition home or self-care (01) ==
LOC: HO.HPS 14:29
PROVIDERS: PCP Internal Medicine; Visit Provider Internal Medicine Pulmonary Disease
DX: J45.41 Moderate persistent asthma with (acute) exacerbation (principal); R05.8 Other specified cough
CPT/HCPCS: 99214

== ENCOUNTER → 2024-12-26 14:28 | Outpatient (BNVA) | payer OTHER, SELFPAY | PROVIDERS: PCP Internal Medicine; Visit Provider Internal Medicine Pulmonary Disease | DX: J45.41 Moderate persistent asthma with (acute) exacerbation (principal); R05.8 Other specified cough | CPT/HCPCS: 99212 ==

== ENCOUNTER 2025-04-03 08:10 | Outpatient (AMB) | payer OTHER, SELFPAY ==
--- OUTSIDE RECORDS SUMMARY | 2013-01-19 | XMS_ITS | Encounter Summary ---
Author Organization [facility] Address [address] [place] [address] [place] [id number] Phone Care Team Providers Care Consolidator Name Role Phone Unavailable Primary Care Provider Unavailabl e Encounter Details Date Type Department Care Team (Late st Contact Info) Description 01/19/2013 Hospital Encounter [facility],Outside Imaging [address] [place] [address] System, Provider Not In, [facility] [address] [address] Social History Tobacco Use Types Packs/Day Years Used Date Smoking Tobacco: Former Cigarettes 2 35 0 11/18/1978 - 11/18/2013 Smokeless Tobacco: Never Alcohol Use Standard Drinks/Week Comments No 0 (1 standard drink = 0.6 oz pur e alcohol) Education Answer Date Recorded Are you interested in more education? Not on vaughn e 10/10/2022 Are you concerned about learning? Not on file 10/10/2022 No 10/10/2022 No 10/10/2022 Digital Access Answer Date Recorded No 11/10/2022 No 11/10/2022 Reliable internet access at home? Not on file 11/10/2022 Device with a working camera? Not on file Comments Unknown Sex and Gender Information Value Date Recorded Sex Assigned at Female 07/12/2017 1:36 PM EST Legal Sex Female 9:37 PM EDT Gender Identity Female 07/12/2017 1:36 PM EST Sexual Orientation Straight 07/12/2017 1: 36 PM EST Occupation Industry Job Start Date Job End Date disabeled Not on file Not on file Not on file documented as of this encounter Plan of Treatment Not on file documented as of this encounter Procedures Procedure Name Priority Date/Time Associated Diagnosis Comments BI MAMMOGRAM OUTSIDE (NO INTERPRETATION) Routine 01/19/2013 12:00 AM EDT documented in this encounter Results * Mammogram Outside (No Interpretation) (01/19/2013 12:00 AM EDT) Narrative SYSTEMGENERATED, DOCUMENTATION - 07/13/2017 3:26 PM EST This study is for PACS storage only and not for interpretation. us Provider Not In System PhD IMG OUTSIDE IMAGING W /OUT INTERPRETATION Final Result documented in this encounter Visit Diagnoses Not on filedocumented in this encounter Additional Source Comments The information contained in this document represents components of the legal health record. It is not the complete legal health record.[facility]
--- NOTE | 2025-04-03 08:16 | MHC.OFFVIS ---
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 Accompanied by: Daughter Allergies adhesive tape (ADHESIVE TAPE) Allergy (Intermediate, Verified 04/03/25 08:20) BLISTERS tramadol (TRAMADOL) Allergy (Intermediate, Verified 04/03/25 08:20) NAUSEA & VOMITING oxycodone (OXYCODONE) Adverse Reaction (Intermediate, Verified 04/03/25 08:20) ITCHING Medication List - Last Reconciled 04/03/25 by Elio Thakkar MD adalimumab (Humira(CF) Pen) 80 mg subcut Q14D Advair HFA 45-21 mcg/actuation (fluticasone propion-salmeterol) 2 puffs PO BID NS albuterol sulfate 90 mcg/actuation (Ventolin HFA) 1 puff inhalation Q6H PRN aripiprazole 5 mg PO DAILY aspirin 81 mg PO DAILY atorvastatin 40 mg PO BEDTIME blood pressure monitor As directed blood sugar diagnostic (FreeStyle Lite Strips) bupropion HCl XL 150 mg PO BID buspirone 10 mg PO BID clindamycin phosphate 1% 1 appl topical BID duloxetine 30 mg PO BID empagliflozin (Jardiance) 25 mg PO DAILY esomeprazole magnesium (Nexium) 20 mg PO DAILY fluticasone propionate 50 mcg/actuation 2 sprays intranasal DAILY PRN gabapentin 300 mg PO BID Lactobacillus acidophilus 500,000,000 cells PO DAILY loratadine 10 mg PO DAILY magnesium oxide 400 mg PO DAILY melatonin 10 mg PO BEDTIME metformin 1,000 mg PO BID metoclopramide HCl (Reglan) 5 mg PO QIDACHS midodrine 2.5 mg PO TID 90 days nitroglycerin 0.4 mg sublingual Q5M PRN nystatin 1 appl topical BID sitagliptin phosphate (Januvia) 25 mg PO DAILY Spiriva Respimat 1.25 mcg/actuation (tiotropium bromide) 2 puffs inhalation QAM NS HPI Comments Details: Ciera returns for follow-up regarding coronary disease. Multiple medical comorbidities including diabetes on insulin, history of smoking, asthma/COPD. She had complained of chest pain and shortness of breath that led to cardiac workup. Eventually, had cardiac catheterization and stenting of LAD/RCA. More recently, she has had issues with orthostatic hypotension. Suspected could be because of weight loss. She states in the past she was as much as 300 lb but over time has lost close to 100+ lb. That might play a role in low blood pressure issues. Since last seen, she states she feels good. No new concerns. No angina or anything else. She states midodrine is helping with the dizziness issue. [facility] Medical History (Updated 04/03/25 @ 08:46 by Elio Thakkar MD) Type 2 diabetes mellitus with unspecified complications Diabetic Charcot's foot Cataract of both eyes Supplemental oxygen dependent COVID-19 Asthma Cholecystectomy planned Hernia of abdominal wall delivery delivered Depression High cholesterol Tachycardia Diabetes Surgical History History of cataract surgery History of excision of pilonidal cyst Hx of oophorectomy Hx of umbilical hernia repair Hx of colonoscopy Hx of cholecystectomy Hx of section Hx of cardiac catheterization History of esophagogastroduodenoscopy (EGD) H/O foot surgery Family History Father No problems noted. Mother Lung cancer Sister H/O heart artery stent Social History Household Members: Other Household Members Other:: sister Housing: House Housing Other:: stays in hotel waiting for housing Are you a primary career based intervention coordinator to a significant other at home: No Do you presently have visiting nurse or other home services: Yes ([employer] 16 hours/week) Alcohol intake: never Patient Tobacco Use Status: Former Tobacco user Tobacco use type: Cigarette Second Hand Smoke Exposure: No Substance Use Type: Marijuana service: No Current occupational status: disabled Review of Systems Const Denies daytime sleepiness, Denies difficulty sleeping, Denies snoring, Denies stops breathing during sleep and Denies weakness Card Denies chest pain, Denies rapid heart rate, Denies irregular heart rhythm, Denies claudication, Denies leg edema, Denies lightheadedness, Denies palpitations, Denies dyspnea, Denies dyspnea on exertion, Denies orthopnea, Denies paroxysmal nocturnal dyspnea and Denies slow heart rate Resp Denies cough, Denies dyspnea, Denies dyspnea on exertion and Denies snoring GI Reports no additional complaints, Denies hematochezia, Denies change in stool character and Denies dyspepsia Musc Denies abnormal gait, Denies muscle weakness and Denies numbness Neuro Denies abnormal gait, Denies numbness and Denies weakness Endo Denies palpitations Physical Exam Vital Signs: Last Vital Signs Pulse 101 H 04/03/25 08:17 BP 102/64 04/03/25 08:17 BMI result Body Mass Index 32.6 Const General: comfortable and no acute distress Orientation/consciousness: patient oriented x3 HEENT Other: Unremarkable Head: Yes normal to inspection Neck Neck: Yes normal visual inspection Chest Chest palpation & inspection: normal inspection of the chest Resp Auscultation: clear to auscultation bilaterally Cardio Palpation: normal PMI Heart sounds: S1 normal heart sound present, S2 normal heart sound present, no gallops, Murmur heart sound present systolic I/ and no rubs GI Palpation (GI): Soft to palpation Back/Spine/Pelvis Other: unremarkable Skin General skin exam: no rashes or lesions noted Neuro General: patient oriented x3 Extrem General: Yes normal to inspection Psych Mental Status: mental status grossly normal Office Procedures EKG Details: EKG with with mild sinus tachycardia at 101/Min; rightward axis; no clear ischemic changes; [place] [id number], Complete Assessment & Plan Assessment & Plan (1) Atherosclerotic cardiovascular disease: Code(s): I25.10 - Atherosclerotic heart disease of [place] coronary artery without angina pectoris Category: Medical Plan: Cardiac [id number] stents in the LAD and RCA. Mild diffuse disease in the mid to distal LAD. Echocardiogram 2023-LVEF 65-70%. Basal inferior/inferoseptal hypokinesis. Ynip-kr-lnwshore aortic stenosis. She remains on aspirin and statins. Last cholesterol from her patient portal that she is able to show me on her phone- LDL 23 mg/dL. Triglycerides 220 mg/dL. (2) Type 2 diabetes mellitus with unspecified complications: Code(s): E11.8 - Type 2 diabetes mellitus with unspecified complications Category: Medical Plan: Listed to be on metformin, Jardiance, Januvia. Hemoglobin A1c is 7.2%. (3) Orthostatic hypotension: Code(s): I95.1 - Orthostatic hypotension Category: Medical Plan: Continue midodrine. (4) Nonrheumatic aortic (valve) stenosis: Code(s): I35.0 - Nonrheumatic aortic (valve) stenosis Category: Medical Plan: [id number] aortic stenosis described in the last echocardiogram. Recheck with next visit. Orders: Orders CA echo transthoracic complete 6 Months I35.0 - Nonrheumatic aortic (valve) stenosis Coding Level of Care Code Est Pt Level 4 (78247) Complex EM visit Add On G2211 Diagnoses Atherosclerotic cardiovascular disease I25.10 Type 2 diabetes mellitus with unspecified complications E11.8 Orthostatic hypotension I95.1 Nonrheumatic aortic (valve) stenosis I35.0 CPT Codes EKG - CPT: 23240-[id number], Complete ([id number])
[2025-04-03 08:17] VITALS: BP 102/64; PULSE 101; BMI 32.6
--- OUTSIDE RECORDS SUMMARY | 2025-04-03 08:19 | XMS_ITS | Clinical Summary ---
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 09/28/19 24 Active adalimumab (Humira,CF, Pen) 80 mg/0.8 mL pen Inject 0.8 mL (80 mg total) under the skin every 14 (fourteen) days. 06/26/19 24 Active atorvastatin (LIPITOR) 40 mg tablet Take 1 tablet (40 mg total) by mouth 1 (one) time each day. 01/05/20 22 Active tiotropium (Spiriva Respimat) 1.25 mcg/actuation inhalation spray Inhale 2 Puffs into the lungs daily. 01/04/20 22 Active aspirin 81 mg EC tablet Take 81 mg by mouth daily. 10/12/19 22 Active fluticasone propion-salmet Natan (Advair HFA) 45-21 mcg/actuation inhaler Inhale 1 Puff into the lungs 2 times daily. 09/13/19 22 Active buPROPion SR (WELLBUTRIN SR) 150 mg 12 hr tablet Take 150 mg by mouth 2 times daily. Active melatonin 5 mg tablet TAKE 1-2 TABLETS BY MOUTH AT BEDTIME DIRECTED 09/20/19 22 Active ARIPiprazole (ABILIFY) 2 mg tablet Take 1 tablet (2 mg total) by mouth 1 (one) time each day. 04/01/20 24 Active FreeStyle Test test strip Check blood sugar once daily. 100 each 3 05/18/20 24 025 Active blood-glucose sensor (Dexcom G6 Sensor) device Change sensor every 10 days. Box = Kit = EA 9 each 3 05/18/20 24 Active metFORMIN XR (GLUCOPHAGE-XR ) 500 mg 24 hr tablet Take 2 tablets (1,000 mg total) by mouth 2 (two) times a day. Do not crush, chew, or split. 120 each 11 06/23/19 25 026 Active esomeprazole (NexIUM) [address] capsule Take 1 capsule (40 mg total) by mouth 1 (one) time each day before breakfast. Do not open capsule. 30 each 08/05/19 25 026 Active busPIRone (BUSPAR) 10 mg tablet Take 1 tablet (10 mg total) by mouth 2 (two) times a day. 07/28/19 25 Active DULoxetine (CYMBALTA) [address] capsule at bedtime. 07/22/19 25 Active blood-glucose transmitter (Dexcom G6 Transmitter) device Change sensor every 3 months 1 each 3 08/24/19 25 Active fluticasone propionate (FLONASE) 50 mcg/actuation nasal spray Administer 1 spray into each nostril 2 (two) times a day. Shake gently. Before first use, prime pump. After use, clean tip and replace cap. 16 g 3 10/28/19 25 Active magnesium oxide (MAG-OX) 400 mg (241.3 elemental magnesium) tablet Take 1 tablet (400 mg total) by mouth 1 (one) time each day. 30 tablet 11/11/19 25 Active Lactobacillus acidophilus 500 million cell capsule Take 1 capsule by mouth 1 (one) time each day. 30 capsule 11/11/19 25 Active loratadine (CLARITIN) 10 mg tablet Take 1 tablet (10 mg total) by mouth 1 (one) time each day. 30 tablet 11/11/19 25 Active DULoxetine (CYMBALTA) [address] capsule Take 1 capsule (30 mg total) by mouth 1 (one) time each day. Do not crush or chew. Active Jardiance 10 mg tablet Take 1 tablet (10 mg total) by mouth 1 (one) time each day in the morning. ATIF [facility] at [facility] 02/03/20 25 Active midodrine (PROAMATINE) 2.5 mg tablet 02/03/20 25 Active freestyle (FreeStyle Lancets) 28 gauge lancetsIndicat ions:Type 2 diabetes mellitus with diabetic microalbuminur ia, without long-term current use of insulin ([facility] V24, [facility] V28) USE TO CHECK BLOOD SUGAR DAILY. 100 each 5 03/14/20 25 Active gabapentin (NEURONTIN) 300 mg capsule Take 1 capsule (300 mg total) by mouth 2 (two) times a day. 60 capsule 03/17/20 25 Active metoclopramide (REGLAN) 5 mg tablet Take 2 tablets (10 mg total) by mouth 4 (four) times a day. 480 each 03/16/20 25 025 Active freestyle 28 gauge lancets Check blood sugar once daily. 100 each 3 05/18/20 24 025 Discontinued gabapentin (NEURONTIN) 300 mg capsule TAKE (1) CAPSULE BY MOUTH TWICE DAILY. 60 capsule 02/15/20 25 025 Discontinued metoclopramide (REGLAN) 5 mg tablet Take 1 tablet (5 mg total) by mouth 4 (four) times a day (before meals and nightly). 120 each 1 02/24/20 25 025 Discontinued metoclopramide (REGLAN) 5 mg tablet TAKE 1 TABLET BY MOUTH 4 TIMES A DAY BEFORE MEALS AND NIGHTLY 120 tablet 03/15/20 25 025 Discontinued(Re order) Active Problems Problem Noted Date Diagnosed Date Type 2 diabetes mellitus wit h stage 2 chronic kidney disease, without long-term current use of insulin ([facility] V24, [facility] V28) 03/04/2025 Chronic obstructive pulmonar y disease, unspecified COPD type ([facility] V24, [facility] V28) 10/27/2024 Orthostatic hypotension 04/29/2024 Fatty liver 09/28/2023 Cataract of both eyes 02/10/2022 CAD (coronary artery disease) 01/15/2022 Overview (04/06/2024): with 4 stents placed (10/11/21, [facility]) NSTEMI 11/05 - cath showed open grafts no culprit lesion CHF (congestive heart failure) ([facility] V24, [facility] V28) 09/23/2021 Charcot's joint arthropathy in type 2 diabetes mellitus ([facility] V24, [facility] V28) 06/11/2021 Overview (04/06/2024): Dr. Pal Microalbuminuria 01/07/2019 Type 2 diabetes mellitus wit h diabetic microalbuminuria, without long-term current use of insulin ([facility] V24, [facility] V28) 01/07/2019 Type II diabetes mellitus wi th neurological manifestations ([facility] V24, [facility] V28) 08/16/2018 Cervical radiculopathy 08/05/2018 Diverticulosis 06/04/2018 Hiatal hernia 06/04/2018 Overview (04/06/2024): EGD 12/02/17 Essential (primary) hypertension 06/02/2018 GERD (gastroesophageal reflux disease) 8 Hidradenitis suppurativa 05/17/2018 Overview (03/04/2025): Follows with Dr. 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 V24, [facility] V28) 05/24/2012 Overview (03/04/2025): 12/07/24: Dr. 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 0 03/04/2025 Macular edema 06/02/2018 03/04/2025 Encounters Date Type Department Care Team Description 03/17/2025 Results Follow-Up [address] [phone] Holly Olivarez PA 03/01/2025 8:00 AM EDT Office Visit [address] [phone] Holly Olivarez PA Encounter for annual wellness visit (AWV) in Medicare patient (Primary Dx); Microalbuminuria; Chronic right-sided congestive heart failure ([facility] V24, [facility] V28); Hyperlipidemia LDL goal <55; Coronary artery disease involving [place] coronary artery of [place] heart without angina pectoris; Hidradenitis suppurativa; Orthostatic hypotension; Current severe episode of major depressive disorder without psychotic features, unspecified whether recurrent ([facility] V24, [facility] V28); Anxiety; Moderate persistent asthma without complication; Chronic obstructive pulmonary disease, unspecified COPD type (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, without long-term current use of insulin ([facility] V24, [facility] V28); Obesity (BMI 30.0-34.9); Gastroesophageal reflux disease, unspecified whether esophagitis present; Essential (primary) hypertension; Type II diabetes mellitus with neurological manifestations ([facility] V24, [facility] V28); Charcot's joint arthropathy in type 2 diabetes mellitus ([facility] V24, [facility] V28); Cervical radiculopathy; Type 2 diabetes mellitus with stage 2 chronic kidney disease, without long-term current use of insulin ([facility] V24, [facility] V28) 02/23/2025 3:00 PM EDT Office Visit Gastroenterology - [place] [address] [facility] [address] [place] [address] Jazz Gandhi NP Gastroparesis (Primary Dx); Nausea and vomiting in adult patient; Gastroesophageal reflux disease without esophagitis 02/21/2025 Telephone Gastroenterology - [place] [address] [facility] [address] [place] [phone] Jazz Gandhi NP 02/20/2025 7:39 AM EDT - 02/20/2025 11:59 PM EDT Hospital Encounter [facility] Nuclear Medicine [address] [place] [phone] Retained food in stomach Discharge Disposition: Home or Self Care 01/16/2025 10:00 AM EDT Consult Adult Medicine [address] [phone] Didi Conner MD Preop cardiovascular exam (Primary Dx); Essential (primary) hypertension; Coronary artery disease involving [place] coronary artery of [place] heart without angina pectoris; Other hyperlipidemia; Moderate persistent asthma without complication; Chronic right-sided congestive heart failure (CMS/HCC V24, CMS/HCC V28); 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, without long-term current use of insulin, unspecified laterality, unspecified retinopathy severity (CMS/HCC V24, CMS/HCC V28) 01/02/2025 8:45 AM EDT Office Visit Orthopedic Surgery - [place] [address] 175 [facility] [address] [place] [phone] Roel Pal, DPM Dermatofibroma of right lower leg (Primary Dx); Cellulitis of right foot; Ankle instability, unspecified laterality; Charcot joint of left foot; Charcot's joint of ankle, right from Last 3 Months Immunizations Immunization Administration Dates Next Due Hepatitis B ([place] , Recombivax HB-Adult) 19yo and older 06/15/1994 Influenza Quadravalent, MDCK , 0.5ml, preservative free (Flucelvax) 6mo and older 03/23/2023,04/02/2022,08/16/2018,03/03 Influenza Quadrivalent, 0.5m l, preservative free (Fluarix; FluLaval; Fluzone) ages 6mo and older (Afluria) 3yo and older 02/20/2016 Influenza trivalent, MDCK, 0 .5mL, preservative free (Flucelvax) 6mo and older 03/01/2025,04/29/2024 Influenza trivalent, with pr eservative (Fluzone; Afluria) [...] 04/12/2018 UPPER GASTROINTESTINAL ENDOSCOPY 11/13/2017 - 12/12/2017 STENT PLACEMENT 06/15/2022 - 06/14/2023 coronary stent x4; Dr. 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 V24, [facility] V28) 08/16/2018 Closed fracture of tarsal an d metatarsal bones of right foot 10/12/2018 Closed displaced fracture of navicular bone of right foot 10/12/2018 Type 2 diabetes with nephrop athy ([facility] V24, [facility] V28) 01/07/2019 Microalbuminuria 01/07/2019 Charcot's joint arthropathy in type 2 diabetes mellitus ([facility] V24, [facility] V28) 06/11/2021 Dependence on supplemental oxygen 07/18/2021 : To maintain O2 saturation above 90% CHF (congestive heart failur e) ([facility] V24, [facility] V28) 09/23/2021 Fatty liver 09/28/2023 CAD (coronary artery disease) 01/15/2022 wi th 4 stents placed (10/11/21, [facility]) NSTEMI 11/05 - cath showed open grafts no culprit lesion Family History Medical History Relation Name Comments [...] 1 985 - 2016 Smokeless Tobacco: Never Tobacco Cessation:Counseling Given: Not Answered Comments:Started age 15; max 2 PPD; quit 2015 Alcohol Use Standard Drinks/Week Comments No 0 (1 standard drink = 0.6 oz pur e alcohol) Housing Instability Answer Date Recorde d Are you worried that in the next 2 months you may not have stable housing? Yes 03/01/2025 Food Access & Nutrition Answer Date Rec orded Do you have access to a vari ety of food including fruits and vegetables? Yes 03/01/2025 Access to Healthcare Answer Date Record ed Within the last 3 months, ho w many times did you visit the emergency department for your medical care? 0 03/01/2025 Health Literacy Answer Date Recorded How often do you need to hav e someone help you when you read instructions, pamphlets, or other written material from your doctor or pharmacy? Always 03/01/2025 Caregiver: How often do you need to have someone help you when you read instructions, pamphlets, or other written material from your doctor or pharmacy? Not on file 03/01/2025 Financial Risk Answer Date Recorded How hard is it for you to pa y for the very basics like food, housing, medical care, and air conditioning / heating? Hard 03/01/2025 Transportation Answer Date Recorded Has the lack of transportati on kept you from meetings, work, or from getting things needed for daily living? No Has the lack of transportati on kept you from medical appointments or from getting medications? No 03/01/2025 Social Isolation Answer Date Recorded How often do you feel lonely or isolated from those around you? Sometimes 03/01/2025 Food Risk Answer Date Recorded Within the past 12 months we worried whether our food would run out before we got money to buy more. Sometimes true 025 Within the past 12 months th e food we bought just didn't last and we didn't have money to get more. Sometimes true 03/01/2025 Dependent Care Answer Date Recorded Do you need help finding or paying for care for your loved ones. For example, children's attendant or elderly care for an older adult? No 03/01/2025 Education Answer Date Recorded Do you think completing more education or training, like finishing a GED, going to college, or learning a trade, would be helpful for you? N/A 03/01/2025 Employment and Income Answer Date Recor ded During the last four weeks, have you been actively looking for work? No 03/01/2025 Living Situation Answer Date Recorded What is your living situation? Unrecognized valu e 03/01/2025 Interpersonal Safety Answer Date Record ed Physical Abuse Unrecognized value 11/18/2024 Verbal Abuse Unrecognized value 11/18/2024 Education Answer Date Recorded What is the highest level of school you have completed or the highest degree you have received? 12th grade 04/29/2024 Comments No Sex and Gender Information Value Date Recorded [...] on file Not on file Obstetrics History Para Term AB IAB SAB Ectopic Multiple Livin g Live Births 3 3 3 3 Date Outcome GA Total Labor Labor/2nd/3rd Weight Sex Type Anes PTL Kymberly A1 A5 Name Clin Term Term Term Last Filed Vital Signs Vital Sign Reading Time Taken Comments Blood Pressure 106/64 03/01/2025 8:04 AM EDT Pulse 95 03/01/2025 8:04 AM EDT Temperature 35.6 C (96.1 F) 03/01/2025 8:04 AM EDT Respiratory Rate 14 03/01/2025 8:04 AM EDT Oxygen Saturation 94% 03/01/2025 8:04 AM EDT Inhaled Oxygen Concentration - - Weight 85.3 kg (188 lb) 03/01/2025 8:04 AM EDT Height 162.6 cm (5' 4 ) 03/01/2025 8:04 AM EDT Body Mass Index 32.27 03/01/2025 8:04 AM EDT Plan of Treatment Upcoming Encounters Date Type Department Care Team (Late st Contact Info) Description 04/24/2025 4:30 PM EST Appointment [facility] CT Scan [address] [place] [phone] 06/22/2025 8:15 AM EST Office Visit Adult Medicine [address] [phone] Didi Conner MD [address] [place] [address] 07/11/2025 8:40 AM EST Office Visit Gastroenterology - [place] 175 [facility] [address] [phone] Jazz Gandhi NP [address] [address] 08/29/2025 8:00 AM EDT Office Visit Adult Medicine [address], [place] [phone] Tara Wright PA [address] [place], [place] 10/09/2025 1:20 PM EDT Appointment Radiology Department - [place] [id number] [place], [place] [phone] Health Maintenance Due Date Last Done Comments Hepatitis B Vaccines (2 of 3 - 19+ 3-dose series) 07/13/1994 06/15/1994 RSV Immunization Adult Patients (1 - Risk 50-74 years 1-dose series) 2018 Zoster Vaccines (1 of 2) 2018 HIV Screening 05/22/2022 Depression Screening 06/15/2024 04/29/2024 Diabetes: Annual Retina Eye Exam 07/30/2024 07/30/2023 COVID-19 Vaccine ( season) 2025 03/09/2021 Lung Cancer Screening (Low Dose CT) 07/20/2025 07/20/2024 Diabetes: Blood Sugar Control Test (HGBA1C) 08/29/2025 03/01/2025, 09/01/2024, 05/06/2024, Additional history exists Diabetes: Annual Foot Exam 01/02/2026 01/02/2025 Diabetes: Annual Urine Albumin-Creatinine Ratio (uACR) 03/01/2026 03/01/2025, 05/06/2024, 09/28/2023, Additional history exists Diabetes: Annual GFR (Glomerular Filtration Rate) 03/01/2026 03/01/2025, 09/01/2024, 05/06/2024, Additional history exists Hypertension/CHF/CAD Annual BMP Blood Test 03/01/2026 03/01/2025, 09/01/2024, 05/06/2024, Additional history exists Medicare Annual Wellness Visit 03/01/2026 03/01/2025 Social Influencers of Health Screening 03/01/2026 03/01/2025 Breast Cancer Screening 10/05/2026 10/06/19, 04/06/2024, 04/06/2024, Additional history exists Cervical Cancer Screening: HPV 03/26/2027 03/26/2022 Colorectal Cancer Screening: Colonoscopy 04/12/2028 04/12/2018 DTaP,Tdap,and Td Vaccines (5 - Td or Tdap) 08/16/2028 08/16/2018, 03/12/2013, 03/15/2006, Additional history exists Cholesterol Screening (Lipid Panel) 03/01/2030 03/01/2025, 05/06/2024, 07/15/2023, Additional history exists Hepatitis C Screening Completed 02/10/2022 Pneumococcal Vaccine: 50+ Years Completed 04/29/2024, 09/19/2015, 04/15/2004 Influenza Vaccine Completed 03/01/2025, , 03/23/2023, Additional history exists HIB Vaccines Aged Out No longer eligi [...] Procedure Name Priority Date/Time Associated Diagnosis Comments COMPREHENSIVE METABOLIC PANEL Routine 03/01/2025 9:01 AM EDT Microalbuminuria Chronic right-sided congestive heart failure ([facility]/HCC V24, CMS/HCC V28) Hyperlipidemia LDL goal <55 Coronary artery disease involving [place] coronary artery of [place] heart without angina pectoris Hidradenitis suppurativa Orthostatic hypotension Type II diabetes mellitus with peripheral autonomic neuropathy (CMS/HCC V24, CMS/HCC V28) COMPLETE BLOOD COUNT Routine 03/01/2025 9:01 AM EDT Microalbuminuria Chronic right-sided congestive heart failure (CMS/HCC V24, CMS/HCC V28) Hyperlipidemia LDL goal <55 Coronary artery disease involving [place] coronary artery of [place] heart without angina pectoris Hidradenitis suppurativa Orthostatic hypotension Type II diabetes mellitus with peripheral autonomic neuropathy (CMS/HCC V24, CMS/HCC V28) HEMOGLOBIN A1C Routine 03/01/2025 9:01 AM EDT Microalbuminuria Chronic right-sided congestive heart failure (CMS/HCC V24, CMS/HCC V28) Hyperlipidemia LDL goal <55 Coronary artery disease involving [place] coronary artery of [place] heart without angina pectoris Hidradenitis suppurativa Orthostatic hypotension Type II diabetes mellitus with peripheral autonomic neuropathy (CMS/HCC V24, CMS/HCC V28) MICROALBUMIN CREATININE URINE RATIO Routine 03/01/2025 9:01 AM EDT Microalbuminuria Chronic right-sided congestive heart failure (CMS/HCC V24, CMS/HCC V28) Hyperlipidemia LDL goal <55 Coronary artery disease involving [place] coronary artery of [place] heart without angina pectoris Hidradenitis suppurativa Orthostatic hypotension Type II diabetes mellitus with peripheral autonomic neuropathy (CMS/HCC V24, CMS/HCC V28) LIPID PANEL WITH REFLEX TO DIRECT LDL Routine 03/01/2025 9:01 AM EDT Microalbuminuria Chronic right-sided congestive heart failure (CMS/HCC V24, CMS/HCC V28) Hyperlipidemia LDL goal <55 Coronary artery disease involving [place] coronary artery of [place] heart without angina pectoris Hidradenitis suppurativa Orthostatic hypotension Type II diabetes mellitus with peripheral autonomic neuropathy (CMS/HCC V24, CMS/HCC V28) NM GASTRIC EMPTYING STUDY Routine 02/20/2025 12:13 PM EDT Retained food in stomach MG MAMMO DIGITAL DIAGNOSTIC W CEM BILAT Routine 10/05/2024 1:30 PM EDT Abnormal mammogram CT LUNG SCREENING Routine 07/20/2024 10: 12 AM EST Encounter for screening for lung cancer History of tobacco use DIABETES EYE EXAM Routine 07/30/2023 HPV Routine 03/26/2022 HEPATITIS C SCREENING Routine 02/10/2022 COLONOSCOPY Routine 04/12/2018 from Last 3 Months or Most Recently Relevant to Health Maintenance Results * (ABNORMAL) Lipid panel with reflex to direct LDL (03/01/2025 9:01 AM EDT) Cholesterol 114 0 - 200 mg/dL LAB CHEMISTRY METHOD 03/01/2025 12:58 PM EDT [facility] Triglycerides 220(H) 0 - 150 mg/dL LAB CHEMISTRY METHOD 03/01/2025 12:58 PM EDT [facility] HDL 47 >=40 mg/dL LAB CHEMISTRY METHOD 03/01/2025 12:58 PM EDT [facility] LDL Calculated 23 0 - 100 mg/dL LAB CHEMISTRY METHOD 03/01/2025 12:58 PM EDT [facility] Comment:Estimated LDL Calcul ated using equation: Total cholesterol - HDL cholesterol - (Triglycerides/5) VLDL Cholesterol Elvin 44 mg/dL LAB CHEMISTRY METHOD 03/01/2025 12:58 PM EDT [facility] Non HDL Chol. (LDL+VLDL) 67 <145 mg/dL LAB CHEMISTRY METHOD 03/01/2025 12:58 PM EDT [facility] Chol/HDL Ratio 2.4 0.0 - 4.4 LAB CHEMISTRY METHOD 03/01/2025 12:58 PM EDT [facility] Blood Venous blood specimen / Unknown Venipuncture / Unknown 03/01/2025 9:01 AM EDT 03/01/2025 9:01 AM EDT us [facility] BLOOD ORDERABLES Final Re sult [facility] [address] [place] [address], [place] [phone] * (ABNORMAL) Microalbumin creatinine urine ratio (03/01/2025 9:01 AM EDT) Pathologist [facility] Creatinine, Urine 71.0 mg/dL LAB CHEMISTRY METHOD 03/01/2025 11:08 AM EDT [facility] Microalb, Ur 29.3(H) 0.0 - 29.0 mg/L LAB CHEMISTRY METHOD 03/01/2025 11:08 AM EDT [facility] Microalb/Crea t Ratio 41(H) <30 mg/g creat LAB CHEMISTRY METHOD 03/01/2025 11:08 AM [facility] Urine Urine specimen from urethra / Unknown Non-blood Collection / Unknown 03/01/2025 9:01 AM EDT 03/01/2025 9:01 AM EDT Holly CASTILLO LAB URINE ORDERABLES Final Re sult [facility] [address] [place] [address], * (ABNORMAL) Complete blood count (03/01/2025 9:01 AM EDT) [facility] WBC 10.4 4.8 - 10.8 K/mcL LAB HEMETOLOGY METHOD 03/01/2025 10:31 AM EDT [facility] RBC 5.10(H) 3.80 - 4.80 M/mcL LAB HEMETOLOGY METHOD 03/01/2025 10:31 AM EDT [facility] Hemoglobin 14.3 11.5 - 16.0 g/dL LAB HEMETOLOGY METHOD 03/01/2025 10:31 AM T [facility] Hematocrit 45.3 35.0 - 47.0 % LAB HEMETOLOGY METHOD 03/01/2025 10:31 AM EDT [facility] MCV 89.3 79.0 - 98.0 FL LAB HEMETOLOGY METHOD 03/01/2025 10:31 AM EDT [facility] MCH 28.2 27.0 - 32.0 pcg LAB HEMETOLOGY METHOD 03/01/2025 10:31 AM EDT [facility] MCHC 31.6(L) 32.0 - 37.0 g/dL LAB HEMETOLOGY METHOD 03/01/2025 10:31 AM EDT [facility] RDW 15.6(H) 11.0 - 15.0 % LAB HEMETOLOGY METHOD 03/01/2025 10:31 AM EDT [facility] Platelets 249 130 - 400 K/mcL LAB HEMETOLOGY METHOD 03/01/2025 10:31 AM EDT [facility] MPV 10.4 7.0 - 11.0 FL LAB HEMETOLOGY METHOD 03/01/2025 10:31 AM EDT [facility] NRBC 0.0 <1.0 % LAB HEMETOLOGY METHOD 03/01/2025 10:31 AM [facility] NRBC Absolute 0.00 <0.10 K/mcL LAB HEMETOLOGY METHOD 03/01/2025 10:31 AM [facility] Blood Venous blood specimen / Unknown Venipuncture / Unknown 03/01/2025 9:01 AM EDT 03/01/2025 9:01 AM EDT us Holly CASTILLO LAB BLOOD ORDERABLES Final Re sult [facility] [address] [place] [address], * (ABNORMAL) Hemoglobin A1c (03/01/2025 9:01 AM EDT) Hemoglobin A1C 7.2(H) <6.5 % LAB CHEMISTRY METHOD 03/01/2025 12:44 PM EDT [facility] Mean Bld Glu Estim. 160 mg/dL LAB CHEMISTRY METHOD 03/01/2025 12:44 PM [facility] Blood Venous blood specimen / Unknown Venipuncture / Unknown 03/01/2025 9:01 AM EDT 03/01/2025 9:01 AM EDT us Holly CASTILLO LAB BLOOD ORDERABLES Final Re sult [facility] [address] [place] [address], [place] [phone] * (ABNORMAL) Comprehensive metabolic panel (03/01/2025 9:01 AM EDT) Sodium 137 133 - 145 mmol/L LAB CHEMISTRY METHOD 03/01/2025 12:58 PM [facility] Potassium 4.7 3.5 - 5.5 mmol/L LAB CHEMISTRY METHOD 03/01/2025 12:58 PM [facility] Comment:Hemolysis present Chloride 101 96 - 110 mmol/L LAB CHEMISTRY METHOD 03/01/2025 12:58 PM [facility] CO2 29 21 - 32 mmol/L LAB CHEMISTRY METHOD 03/01/2025 12:58 PM [facility] Anion Gap 7 3 - 11 LAB CHEMISTRY METHOD 03/01/2025 12:58 PM [facility] Glucose 162(H) 70 - 100 mg/dL LAB CHEMISTRY METHOD 03/01/2025 12:58 PM [facility] BUN 29(H) 5 - 25 mg/dL LAB CHEMISTRY METHOD 03/01/2025 12:58 PM [facility] Creatinine 0.96 0.50 - 1.10 mg/dL LAB CHEMISTRY METHOD 03/01/2025 12:58 PM [facility] eGFR 70 >=60 mL/min/1. 73m2 LAB CHEMISTRY METHOD 03/01/2025 12:58 PM T [facility] Comment:Calculation based on the Chronic Kidney Disease Epidemiology Collaboration (CKD-EPI) equation refit without adjustment for race. BUN/Creatinine Ratio 30.2 LAB CHEMISTRY METHOD 03/01/2025 12:58 PM T [facility] Calcium 9.3 8.5 - 10.5 mg/dL LAB CHEMISTRY METHOD 03/01/2025 12:58 PM [facility] AST (SGOT) 29 10 - 42 unit/L LAB CHEMISTRY METHOD 03/01/2025 12:58 PM [facility] Comment:Hemolysis present ALT (SGPT) 46 10 - 60 unit/L LAB CHEMISTRY METHOD 03/01/2025 12:58 PM [facility] Alkaline Phosphatase 121 42 - 121 unit/L LAB CHEMISTRY METHOD 03/01/2025 12:58 PM [facility] Total Protein 7.0 6.0 - 8.0 g/dL LAB CHEMISTRY METHOD 03/01/2025 12:58 PM [facility] Albumin 3.9 3.2 - 5.0 g/dL LAB CHEMISTRY METHOD 03/01/2025 12:58 PM [facility] Total Bilirubin 0.4 0.0 - 1.4 mg/dL LAB CHEMISTRY METHOD 03/01/2025 12:58 PM [facility] Blood Venous blood specimen / Unknown Venipuncture / Unknown 03/01/2025 9:01 AM EDT 03/01/2025 9:01 AM EDT us Holly CASTILLO LAB BLOOD ORDERABLES Final Re sult [facility] [address] [place] [address], * NM Gastric Emptying Study (02/20/2025 12:13 PM EDT) Anatomical Region Laterality Modality Body Nuclear Medicine 02/22/2025 12:5 8 PM EDT Impressions 02/22/2025 12:59 PM EDT Delayed gastric emptying. -------- FINAL REPORT -------- Dictated By: Severino Wayne Dictated Date: 02/22/2025 12:58 ET Assigned Physician: Severino Wayne Reviewed and Electronically Signed By: Severino Wayne Signed Date: 02/22/2025 12:59 ET Workstation ID: [id number] Transcribed By: Self Edit Transcribed Date: 02/22/2025 12:58 ET Narrative 02/22/2025 12:59 PM EDT HISTORY: Residual food in stomach on endoscopy FINDINGS: Routine radionuclide gastric emptying study was performed following administration of 1 mCi of Tc99m sulfur colloid prepared in egg for solid food evaluation. Anterior and posterior imaging obtained. 1 hour retention 78%. Normal <90% 2 hour retention 84%. Normal <60% 3 hour retention 65%. Normal <30% 4 hour retention 45%. Normal <10% 2 hour retention percentage increases relative to the 1 hour retention since distal esophageal activity was included on the 1 hour image which cleared into the stomach on the two-hour image. Procedure Note Severino Wayne MD - 02/22/2025 HISTORY: Residual food in stomach on endoscopy FINDINGS: Routine radionuclide gastric emptying study was performedfollowing administration of 1 mCi of Tc99m sulfur colloid prepared in eggfor solid food evaluation. Anterior and posterior imaging obtained. 1 hour retention 78%. Normal <90% 2 hour retention 84%. Normal <60% 3 hour retention 65%. Normal <30% 4 hour retention 45%. Normal <10% 2 hour retention percentage increases relative to the 1 hour retentionsince distal esophageal activity was included on the 1 hour image whichcleared into the stomach on the two-hour image. IMPRESSION: Delayed gastric emptying. -------- FINAL REPORT -------- Dictated By: Severino Wayne Dictated Date: 02/22/2025 12:58 ET Assigned Physician: Severino Wayne Reviewed and Electronically Signed By: Severino Wayne Signed Date: 02/22/2025 12:59 ET Workstation ID: [id number] Transcribed By: Self Edit Transcribed Date: 02/22/2025 12:58 ET Jazz Gandhi CONTRACT GRAPHIC DESIGNER IMG NM PROCEDURES Final Result * MG Mammo Digital Diagnostic w Cem bilat (10/05/2024 1:30 PM EDT) Anatomical Region Laterality Modality Breast Bilateral Mammography 10/05/2024 1:37 PM EDT Narrative 10/05/2024 1:41 PM EDT Diagnostic mammogram. History follow-up on focal asymmetry in the upper outer left breast. Full field digital 2d C views and 3-D Tomosynthesis bilateral mammograms were obtained as well as spot compression views of the left breast in CC and MLO projections. Comparison with multiple prior studies diagnostic mammograms from 04/06/2024 and 10/05/2023 as well as prior screening examinations, latest from 08/13/2023. The density of concern in the left upper outer breast was no longer visualized. There is no new suspicious masses, microcalcifications or architectural distortion. CONCLUSIONS: No mammographic evidence for malignancy. Follow-up mammogram in one year returning to the annual screening. BIRADS 1, negative. -------- FINAL REPORT -------- Dictated By: Farida Parson Dictated Date: 10/05/2024 13:37 ET Assigned Physician: Farida Parson Reviewed and Electronically Signed By: Farida Parson Signed Date: 10/05/2024 13:41 ET Workstation ID: [id number] Transcribed By: Self Edit Transcribed Date: 10/05/2024 13:37 ET Procedure Note Farida Parson MD - 10/05/2024 Diagnostic mammogram. History follow-up on focal asymmetry in the upper outer left breast. Full field digital 2d C views and 3-D Tomosynthesis bilateral mammogramswere obtained as well as spot compression views of the left breast in CCand MLO projections. Comparison with multiple prior studies diagnosticmammograms from 04/06/2024 and 10/05/2023 as well as prior screeningexaminations, latest from 08/13/2023. The density of concern in the leftupper outer breast was no longer visualized. There is no new suspicious masses, microcalcifications or architecturaldistortion. CONCLUSIONS: No mammographic evidence for malignancy. Follow-up mammogramin one year returning to the annual screening. BIRADS 1, negative. -------- FINAL REPORT -------- Dictated By: Farida Parson Dictated Date: 10/05/2024 13:37 ET Assigned Physician: Farida Parson Reviewed and Electronically Signed By: Farida Parson Signed Date: 10/05/2024 13:41 ET Workstation ID: [id number] Transcribed By: Self Edit Transcribed Date: 10/05/2024 13:37 ET Gagan Brandt DO IMG BI PROCEDURES Final Resul t * CT Lung Screening (07/20/2024 10:12 AM EST) Anatomical Region Laterality Modality Chest Computed Tomogra phy 07/21/2024 2:32 PM EST Impressions 07/21/2024 2:48 PM EST 10 mm left lower lobe nodule is indeterminate. Lung RADS 4A-suspicious. Recommend chest CT in 3 months to assess change. -------- FINAL REPORT -------- Dictated By: JOVON SINGLETON Dictated Date: 07/21/2024 14:32 ET Assigned Physician: JOVON SINGLETON Reviewed and Electronically Signed By: JOVON SINGLETON Signed Date: 07/21/2024 14:48 ET Workstation ID: [id number] Transcribed By: Self Edit Transcribed Date: 07/21/2024 14:32 ET Narrative 07/21/2024 2:48 PM EST PROCEDURE: Chest CT INDICATION: Lung cancer screening, former smoker, 64 pack year smoking history TECHNIQUE: Chest CT without contrast. Multi planar reformats were created and interpreted. The examination was performed utilizing dose reduction techniques. Total DLP 98 COMPARISON: No priors available. FINDINGS: LUNGS/PLEURA: Central airways are patent. Mild emphysema. Mild bronchiectasis and bronchial wall thickening indicative of chronic bronchitis. 9 x 10 mm left lower lobe nodule near the costophrenic angle. Other scattered calcified and noncalcified 2 to 3 mm solid nodules are noted throughout the lungs. No pleural effusion or pneumothorax. MEDIASTINUM: Thyroid gland is normal. No mediastinal or hilar lymphadenopathy. Esophagus is normal. Cardiac chambers are normal in size. Advanced coronary artery calcifications with multiple coronary artery stents. Thoracic aorta is normal in size. CHEST WALL: No axillary lymphadenopathy or superficial hematoma. UPPER ABDOMEN:Cholecystectomy. BONES: No acute fracture. Scattered degenerative changes seen throughout the bones. Result [facility] Reyna Alcazar MD IMG CT PROCEDURES Final Result * Diabetes Eye Exam (07/30/2023) [facility] Diabetes: Annual Retina Eye Exam abstracted Result [facility] Provider HEALTH MAINTENANCE Final Result * Cervical Cancer Screening: HPV (03/26/2022) [facility] Cervical Cancer Screening: HPV negative, abstracted Result [facility] Provider HEALTH MAINTENANCE Final Result * Hepatitis C Screening (02/10/2022) [facility] Hepatitis C Screening abstracted Result [facility] Provider HEALTH MAINTENANCE Final Result * Colonoscopy (04/12/2018) [facility] Colonoscopy no interpretation , abstracted Anatomical Region Laterality Modality Other Result [facility] Provider HEALTH MAINTENANCE Final Result from Last 3 Months or Most Recently Relevant to Health Maintenance Insurance , [id number] [place] [id number] [facility] MEDICARE Member Subscriber Plan / Payer (Ef fective 2019-Present) Name:DOTTY JAIME Relation to Subscriber:Self Name:Benny Jaimemie Payer ID:[id number] Group ID:[id number] Type:Not on file Address: [place] [address] [place] [address] Care Teams Sprinkler Irrigation Equipment Mechanic Relationship Specialty Start Date End Date Didi Conner MD [address] [place] [address] PCP - General Internal Medicine 08/16/21
--- OUTSIDE RECORDS SUMMARY | 2025-04-03 08:19 | XMS_ITS | Encounter Summary ---
Author Organization [facility] Address [address] [address] Phone Care Team Providers Care Internet Marketing Assistant Name Role Phone Jose Brennan MD Unavailable [phone] Jose Brennan MD Primary Care Provider eHidi Rainey RN Unavailable [phone] Jose Brennan MD Primary Care Provider [phone] Pcp, Unknown Primary Care Provider Unavailabl e Encounter Details Date Type Department Care Team (Late st Contact Info) Description 07/13/2017 Ancillary Orders [facility],Outside Imaging [address] [place], [place] [id number] System, Provider Not In, [place] [address] Social History Tobacco Use Types Packs/Day Years Used Date Smoking Tobacco: Former Cigarettes 2 35 1 - 03/20/2013 Smokeless Tobacco: Never Alcohol Use Standard Drinks/Week Comments No 0 (1 standard drink = 0.6 oz pur e alcohol) Comments Unknown Sex and Gender Information Value [...] on file documented as of this encounter Results * Mammogram Outside (No [...] Assessment Noted Time PHQ-9 Depression Total Score: 24 017 11:42 AM EST PHQ-2 Depression Total Score: 6 05/20/20 17 11:42 AM EST documented as of this encounter Care Teams Internet Marketing Assistant Relationship Specialty Start Date End Date Jose Brennan MD [address] [place] [address] PCP - General Internal Medicine 05/15/17 12/08/18 Jose Brennan MD [address] [place] [address] PCP - General Internal Medicine 03/07/21 03/26/21 Pcp, Unknown PCP - General 03/27/21 Jose Brennan MD [address] [place] [address] Insurance Assigned Provider 04/18/17 07/15/19 Heidi Rainey, RN [address] [place] [address] PHCM Trim Operator 11/24/18 12/07/18 documented as of this encounter Additional Source Comments The information contained in this document represents components of the legal health record. It is not the complete legal health record.[facility]
--- OUTSIDE RECORDS SUMMARY | 2025-04-03 08:19 | XMS_ITS | Encounter Summary ---
Author Organization [facility] [place] [address] Care Team Providers Care Loans Consultant Name Role Phone Didi Conner MD Primary Care Provider [phone] Encounter Details Date Type Department Care Team ([facility] st Contact Info) Description 03/17/2025 Results [facility] [address] [place], [place] [phone] Holly Olivarez PA [address] [place], [place] Social History Tobacco Use Types Packs/Day Years Used Date Smoking Tobacco: Former Cigarettes 2 32 1 98 - 2016 Smokeless Tobacco: Never Comments:Started age [...] for your loved ones. For example, child nurse or elderly care for an older adult? [...] as of this encounter Plan of Treatment Upcoming Encounters Date Type Department Care Team (Late st Contact Info) Description 04/24/2025 4:30 PM EST Appointment [facility] CT Scan [address] [place] [address] 06/22/2025 8:15 AM EST Office Visit Adult Medicine [address] [phone] Didi Conner MD [address] [place] [address] 07/11/2025 8:40 AM EST Office Visit Gastroenterology [address] [address] Jazz Gandhi NP [address] [address] 08/29/2025 8:00 AM EDT Office Visit Adult Medicine [address] [phone] Tara Wright PA [address] [place] [address] 10/09/2025 1:20 PM EDT Appointment Radiology Department [address] [phone] Scheduled Orders Name Type Priority Associated Diagnoses Orde r Schedule Hemoglobin A1c Lab Routine Type II diabetes mellitus with neurological manifestations ([facility] V24, [facility] V28) Type 2 diabetes mellitus with stage 2 chronic kidney disease, without long-term current use of insulin ([facility] V24, [facility] V28) Type 2 diabetes mellitus with diabetic microalbuminuria, without long-term current use of insulin ([facility] V24, [facility] V28) 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, without long-term current use of insulin ([facility] V24, [facility] V28) Expected: 06/15/2025, Expires: 03/17/2026 Basic metabolic panel Lab Routine Type II diabetes mellitus with neurological manifestations ([facility] V24, [facility] V28) Type 2 diabetes mellitus with stage 2 chronic kidney disease, without long-term current use of insulin ([facility] V24, [facility] V28) Type 2 diabetes mellitus with diabetic microalbuminuria, without long-term current use of insulin ([facility] V24, [facility] V28) 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, without long-term current use of insulin ([facility] V24, [facility] V28) Expected: 06/15/2025, Expires: 03/17/2026 documented as of this encounter Visit Diagnoses Diagnosis Type II diabetes mellitus with neurological manifestations ([facility] V24, [facility] V28)- Primary Type II or unspecified type diabetes mellitus with neurological manifestations, not stated as uncontrolled Type 2 diabetes mellitus with stage 2 chronic kidney disease, without long-term current use of insulin ([facility] V24, [facility] V28) Type 2 diabetes mellitus with diabetic microalbuminuria, without long-term current use of insulin ([facility] V24, [facility] V28) 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
--- OUTSIDE RECORDS SUMMARY | 2025-04-03 08:19 | XMS_ITS | Patient Health Record ---
Author Organization [facility] Address [address] [place] [phone] Care Team Providers Care Bilingual Customer Service Specialist Name Role Phone Walker, Leti Primary Care Provider Yoel Metzger Unavailable [phone] Allergies Allergen (clinical drug ingredient) Drug/Non Drug [...] MOUTH IN THE EVENING FOR 30 DAYS. Oral; Duration: 30 Active DULoxetine HCl 60 MG TAKE 1 CAPSULE BY M OUTH EVERY MORNING Oral; Duration: 30 Active buPROPion HCl ER (XL) 150 MG TAKE 1 TABLET BY MOUTH EVERY MORNING Oral; Duration: 30 Active Basaglar KwikPen 100 UNIT/ML injection [...] Problem Status W/U Status Risk Notes Problem Screening for malignant neoplasm of colon (283332330) Encounter for screening for malignant neoplasm of colon (Z12.11) Active confirmed Problem Gastroesophageal reflux disease (074741671) Gastroesophageal reflux disease, esophagitis presence not specified (K21.9) Active confirmed Problem Irritable bowel syndrome (19807641) Irritable bowel syndrome, unspecified type (K58.9) Active confirmed Plan Of Treatment Future Test Test Name Order Date UPPER GI ENDOSCOPY 09/11/2017 COLONOSCOPY 09/11/2017 Insurance Providers Payer Name Payer Address Payer Phone Subscriber Number Group Number Insured Name Patient Relationship to Insured Coverage Start Date Coverage End Date MEDICARE OF [place] [address] [place] [address] [id number] DOTTY JAIME Self - patient is the insured MEDICAID OF [facility] [address] [place] [address] [id number] DOTTY JAIME Self - patient is the insured Medical (General) History Medical History History ICD Code IDDM Tachycardia--negative cardiac cath in ap prox 2016 at [facility] Asthma Environmental allergies GERD Denies [place],CVA,renal disease Depression Hyperlipidemia Surgical History Surgery Date(Month/Year) x 3 Cholecystectomy Umbilical hernia repair Pilonidal cyst
--- OUTSIDE RECORDS SUMMARY | 2025-04-03 08:20 | XMS_ITS | Patient Health Record ---
[facility] Address [address] [place] [address] Care Team Providers Care Copy Coordinator Name Role Phone Holly Ramirez Unavailable [phone] Allergies Allergen (clinical drug ingredient) Drug/Non Drug [...] Problem Acquired hammer toe of right foot (1840665558274304 ) Hammer toe of right foot (M20.41) Active confirmed Problem Acquired hammer toe of left foot (5123206619652389 ) Hammer toe of left foot (M20.42) Active confirmed Problem Abnormal gait (48816720) Unstable gait (R26.81) Active confirmed Problem Diabetic neuropathic arthropathy (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) Charcot foot due to diabetes mellitus (E11.610) Active confirmed Problem Polyneuropathy due to type 2 diabetes mellitus (950333189) Type 2 diabetes mellitus with polyneuropathy (E11.42) Active confirmed Problem Foot ulcer due to type 2 diabetes mellitus (3643679764905) Type 2 diabetes mellitus with foot ulcer (E11.621) Active confirmed Problem Ulcer of left lower leg (disorder) (9828642606450069 3) Non-pressure ulcer of left lower extremity with fat layer exposed (L97.922) Active confirmed Problem Arthropathy associated with a neurological disorder (88650624) Charcot's joint of right foot (M14.671) Active confirmed Problem Arthropathy associated with a neurological disorder (72766870) Charcot's joint of left foot (M14.672) Active [...] Insured Coverage Start Date Coverage End Date [facility] [employer] Claims [address] [place] [id number] Ciera Haas Self - patient is the [...]
--- OUTSIDE RECORDS SUMMARY | 2025-04-03 08:20 | XMS_ITS | Clinical Summary ---
Author Organization [facility] Address [address] [place] [address] Care Team Providers Care Lead Section Supervisor Name Role Phone Leti Ballesteros MD Primary Care Provider [phone] Allergies Active Allergy Reactions Criticality Noted Date [...] age to complete this topic Care Teams Lead Section Supervisor Relationship Specialty Start Date End Date Leti Ballesteros MD PCP - General Internal Medicine 05/05/19
--- OUTSIDE RECORDS SUMMARY | 2025-04-03 08:20 | XMS_ITS | Clinical Summary ---
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 Role Phone Pcp, Unknown Primary Care Provider Unavailabl e Allergies Active Allergy Reactions Criticality Noted Date Comments Adhesive Tape-Silicones Rash Low 01/22/2017 Oxycodone-Acetaminophen Itching 01/22/2017 Tramadol Hcl Nausea and/or Vomiting 01/22/2017 Medications fluticasone-lc meterol (ADVAIR HFA) 115-21 mcg/actuation inhaler 2 puffs Active insulin syringe-needle U-100 0.3 mL 30 Syrg use 4 times daily Ac tive dilTIAZem (CARDIZEM CD) 240 MG 24 hr capsule 1 capsule Active DULoxetine (CYMBALTA) 60 MG capsule 1 capsule 08/03/19 15 Active insulin pen needles, disposable, (NOVOFINE 32) 32 gauge x 1/4 Ndle as directed 01/31/20 17 Active olopatadine (PATADAY) 0.2 % Drop 1 drop(s) 11/25/19 17 Active pravastatin (PRAVACHOL) 20 MG tablet 1 tablet twice daily 07/12/19 14 Active albuterol (PROVENTIL HFA) 90 mcg/actuation inhaler 2 puffs as needed 06/27/19 15 Active cetirizine (ZYRTEC) 10 mg Cap 1 tab(s) Active melatonin 5 mg Tab TAKE 1-2 TABLET BY MOUTH AT BEDTIME DIRECTED 4 04/30/20 17 Active buPROPion (WELLBUTRIN XL) 150 MG ER 24 hr tablet Take 150 mg by mouth. 4 04/30/20 17 Active ARIPiprazole (ABILIFY) 10 MG tablet 05/19/20 17 Active polyethylene glycol (MIRALAX) 17 gram/dose powder Take 17 g by mouth daily. 1 Bottle 5 06/12/20 17 Active JANUVIA 100 mg tablet Take 100 mg by mouth daily. 0 06/11/20 17 Active insulin aspart U-100 (NOVOLOG U-100 INSULIN ASPART) 100 unit/mL injection vial Inject 16 Units under the skin 3 (three) times a day before meals. 4320 Units 3 12/04/19 18 Active VICTOZA 3-MANAS 0.6 mg/0.1 mL (18 mg/3 mL) PnIj 0.2 ML ONCE A DAY SUBCUTANEOUS 30 DAY(S) 9 mL 11 02/02/20 18 Active omeprazole (PRILOSEC) 20 MG capsule Take 1 capsule (20 mg total) by mouth 2 (two) times a day. 180 capsule 3 04/21/20 18 Active gabapentin (NEURONTIN) 100 MG capsuleIndicati ons:Cervicalgia Take 1 capsule (100 mg total) by mouth nightly. 30 capsule 05/03/20 18 Active blood sugar diagnostic (FREESTYLE LITE) Strp stripsIndicatio ns:Type 2 diabetes mellitus with complication, with long-term current use of insulin 1 each by See Administration Instructions route 3 (three) times a day before meals. 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 11 pen 11 08/12/19 19 Active metFORMIN (GLUCOPHAGE) 1000 MG tablet TAKE 1 TABLET BY MOUTH TWICE A DAY WITH FOOD 60 tablet 11/05/19 19 Active Active Problems Problem Noted Date Diagnosed Date Amenorrhea 07/09/2017 Assessment & Plan (07/10/2017 1:45 PM EST): Normal prol, fsh 31- will give 12 days progestin and f/u in office Assessment & Plan (07/09/2017 1:57 PM EST): Onset in her 30s may have been due to PCOS , obesity; at current age, if in menopause, no action needed; if FSH normal , I advise RTO to discuss periodic porgesterone use to prevent hyperplasia of endometrium; labs ordered incl Prolactin Vulvar lesion 07/09/2017 Assessment & Plan (07/09/2017 1:58 PM EST): Excised completely and sent to path Class 3 obesity due to exces s calories with serious comorbidity and body mass index (BMI) of 40.0 to 44.9 in adult 06/12/2017 Allergic rhinitis 05/20/2017 Anxiety 05/20/2017 Asthma 05/20/2017 Essential hypertension 05/20/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 05/20/2017 Low back pain 05/20/2017 Mixed hyperlipidemia 05/20/2017 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 05/20/2017 Type 2 diabetes mellitus wit h complication, with long-term current use of insulin 05/20/2017 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 Immunizations Immunization Administration Dates Next Due Hepatitis B Adult 06/15/1994 INFLUENZA, SPLIT VIRUS, TRIVALENT W/ PRESERVATIV E IM 03/23/2014 Pneumococcal polysaccharide PPSV23 04/15/2004 Td (adult) 5 Lf Tetanus Toxoid, PF, Adsorbed 06/2005 Family History Medical History Relation Comments Cancer Father Diabetes Father Diabetes Mother Hypertension Mother Relation Status Comments Father (Age 47) leukemia Mother Alive pancreatitis and whipple Sister Alive stents in arteri es age 50 Social History Tobacco Use Types Packs/Day Years [...] Sign Reading Time Taken Comments Blood Pressure 130/78 10/15/2017 2:30 PM EDT Pulse 88 10/15/2017 2:30 PM EDT Temperature 36.7 C (98 F) 10/15/2017 2:30 PM EDT Respiratory Rate 16 05/20/2017 11:47 AM EST Oxygen Saturation 98% 10/15/2017 2:30 PM EDT Inhaled Oxygen Concentration - - Weight 114.3 kg (252 lb) 10/15/2017 2:30 PM EDT Height 161.3 cm (5' 3.5 ) 10/15/2017 2:30 PM EDT Body Mass Index 43.93 10/15/2017 2:30 PM EDT Plan of Treatment Health Maintenance Due Date Last Done Comments BLOOD PRESSURE 1970 SMOKING Hx and SMOKELESS TOBACCO SCREENING 1981 HIV ONE-TIME SCREENING (18-65 YEARS) 1986 COLOGUARD 2013 COLONOSCOPY 2013 COLORECTAL CANCER SCREENING 2013 FIT TEST 2013 FOBT 2013 SIGMOIDOSCOPY 2013 VIRTUAL COLONOSCOPY 2013 PNEUMOCOCCAL VACCINES (50+ years) (2 of 2 - PCV) 09/18/2016 09/19/2015, 04/15/2004 RSV VACCINE (1 - Risk 50-74 years 1-dose series) 2018 ZOSTER VACCINES (1 of 2) 2018 DEPRESSION SCREENING 05/20/2018 05/20/2017, 05/20/20 17 CREATININE LEVEL 10/01/2018 10/01/2017, , 06/12/2017 HEMOGLOBIN A1C 08/04/2019 05/04/2019, 09/13, 07/02/2017, Additional history exists MAMMOGRAM 08/11/2019 08/11/2017, 12/2012, 12/07/2012 LIPID PANEL 01/07/2020 01/06/2019, 09/13, 02/11/2017 URINE MICROALBUMIN/CREATININE RATIO 01/07/2020 01/06/2019, 10/01/2017 PAP SMEAR 07/09/2020 07/09/2017, 06/16, 12/21/2013 DIABETIC EYE EXAM 03/06/2024 03/06/2023, , 01/06/2018 INFLUENZA VACCINE (#1) 2025 9, 08/16/2018, 03/03/2017, Additional history exists COVID-19 VACCINE ( season) 2025 03/09/2021 Adult Td,Tdap Booster 08/16/2028 08/16/2018 , 03/12/2013, 03/15/2006 HEPATITIS C SCREENING Completed 12/07/2012 HEPATITIS A VACCINES Aged Out No long er eligible based on patient's age to complete this topic HIB VACCINES Aged Out No longer eligi ble based on patient's age to complete this topic MENINGOCOCCAL VACCINES (ACWY) Aged Out No longer eligible based on patient's age to complete this topic MENINGOCOCCAL VACCINES (B) Aged Out N o longer eligible based on patient's age to complete this topic Medical Devices Not on file Procedures Procedure Name Priority Date/Time Associated Diagnosis Comments HM DIABETES EYE EXAM FOR RESULT ENTRY ONLY Routine 03/06/2023 MICROALBUMIN/CREATININ E RATIO, RANDOM URINE Routine 10/01/2017 10:39 AM EDT 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, with long-term current use of insulin, unspecified retinopathy severity HEMOGLOBIN A1C Routine 10/01/2017 10:35 AM EDT 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, with long-term current use of insulin, unspecified retinopathy severity LIPID PANEL Routine 10/01/2017 10:35 AM EDT 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, with long-term current use of insulin, unspecified retinopathy severity COMPREHENSIVE METABOLIC PANEL Routine 10/01/2017 10:35 AM EDT 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, with long-term current use of insulin, unspecified retinopathy severity BI MAMMOGRAM SCREENING WITH TOMOSYNTHESIS WITH CAD (BILATERAL) Routine 08/11/2017 2:06 PM EST Breast cancer screening PAP TEST Routine 07/09/2017 12:00 AM EST from Last 3 Months or Most Recently Relevant to Health Maintenance Results * DIABETES EYE EXAM FOR RESULT ENTRY ONLY (03/06/2023) Jose Brennan MD HEALTH MAINTENANCE Edited Res ult - Final * (ABNORMAL) Microalbumin/creatinine ratio, random urine (10/01/2017 10:39 AM EDT) URINE MICROALBUMIN 10.3(H) 0 - 2.3 mg/dL [facility] URINE CREATININE 322 mg/dL [facility] MICROALB/CRE RATIO 32.0(H) 0 - 20 mg/g Cre [facility] Urine (Urine) 10/01/2017 10: 39 AM EDT 10/01/2017 10:40 AM EDT Jose Brennan MD URINE ORDERABLES Final Result Performing Organization Address City/State/[facility] Co de Phone Number [address] [phone] * (ABNORMAL) Comprehensive metabolic panel (10/01/2017 10:35 AM EDT) SODIUM 145 133 - 146 mmol/L [facility] POTASSIUM 3.5 3.3 - 5.1 mmol/L [facility] CHLORIDE 105 96 - 108 mmol/L [facility] CO2 27 21 - 35 mmol/L [facility] BUN 15 6 - 19 mg/dL [facility] CREATININE 0.60 0.5 - 1.5 mg/dL [facility] GLUCOSE 104(H) 70 - 99 mg/dL [facility] ALBUMIN 3.8(L) 3.9 - 4.8 g/dL [facility] TOTAL PROTEIN 6.6 6.5 - 8.0 g/dL [facility] CALCIUM 9.1 8.4 - 10.3 mg/dL [facility] ALKALINE PHOSPHATASE 95 39 - 117 U/L [facility] TOTAL BILIRUBIN 0.4 0.0 - 1.2 mg/dL [facility] AST 35 0 - 37 U/L [facility] ALT 30 0 - 40 U/L [facility] GLOBULIN 2.8 1 - 4.8 g/dL [facility] EGFR 107 >59 mL/min/1.7 3m2 [facility] Comment:If patient is black, multiply result by 1.159. The eGFR calculation has changed from the MDRD equation to the CKD-EPI equation as of August 18, 2017. ANION GAP 17 10 - 20 mmol/L [facility] Blood 10/01/2017 10:3 5 AM EDT 10/01/2017 10:37 AM EDT Jose Brennan MD LAB BLOOD ORDERABLES Final Re sult Performing Organization Address [facility]/ZIP Co de Phone Number [address] [phone] * (ABNORMAL) Hemoglobin A1c (10/01/2017 10:35 AM EDT) HEMOGLOBIN A1C 8.1(H) 4.3 - 5.8 % [facility] Blood 10/01/2017 10:3 5 AM EDT 10/01/2017 10:37 AM EDT us Jose Brennan MD LAB BLOOD ORDERABLES Final Re sult Performing Organization Address [facility]/ZIP Co de Phone Number [address] [phone] * (ABNORMAL) Lipid panel (10/01/2017 10:35 AM EDT) HDL 38 mg/dL [facility] Comment: Interpretation: Risk Level Females Decreased >55mg/dL Average 50-55 mg/dL Increased <50 mg/dL CHOLESTEROL 222 0 - 240 mg/dL [facility] TRIGLYCERIDES 330(H) 30 - 160 mg/dL [facility] LDL 118 50 - 129 mg/dL [facility] Comment: LDL levels in terms of risk for coronary heart disease: <100 mg/dL: Optimal 100-129 mg/dL: Near or above optimal 130-159 mg/dL: Borderline high 160-189 mg/dL: High >190 mg/dL: Very High CARDIAC RISK RATIO 5.8(H) 3.3 - 4.4 [facility] Blood 10/01/2017 10:3 5 AM EDT 10/01/2017 10:37 AM EDT us Jose Brennan MD LAB BLOOD ORDERABLES Final Re sult [address] [address] * BI MAMMOGRAM SCREENING WITH TOMOSYNTHESIS WITH CAD (BILATERAL) (08/11/2017 2:06 PM EST) Anatomical Region Laterality Modality Breast Left, Breast Right, Breast Bilateral Bila teral Mammography 08/11/2017 6:51 PM EST Impressions 08/11/2017 6:57 PM EST No mammographic change indicative of malignancy. Routine screening is recommended. BI-RADS CATEGORY: 2 - Benign finding. DENSITY: There are scattered fibroglandular densities. POS - CDHMAM2 Narrative 08/11/2017 6:57 PM EST FINDINGS: Bilateral full-field digital screening mammography is obtained and read in conjunction with computer-aided detection. 3-D tomosynthesis as well as 2-D C view imaging is also performed. Comparison includes the most recent exam from 01/19/2013. Breasts are composed of scattered fibroglandular tissue. Bilateral nodularity is similar and seen to better advantage with 3-D tomosynthesis. Mildly dilated tortuous vascularity again noted in the left breast. No new suspicious mass, suspicious microcalcifications, architectural distortion, focal skin thickening, or new asymmetry is detected. Procedure Note Ronald Lyon MD - 08/11/2017 FINDINGS: Bilateral full-field digital screening mammography is obtained and read inconjunction with computer-aided detection. 3-D tomosynthesis as well as2-D C view imaging is also performed. Comparison includes the most recentexam from 01/19/2013. Breasts are composed of scattered fibroglandular tissue. Bilateralnodularity is similar and seen to better advantage with 3-D tomosynthesis.Mildly dilated tortuous vascularity again noted in the left breast. Nonew suspicious mass, suspicious microcalcifications, architecturaldistortion, focal skin thickening, or new asymmetry is detected. IMPRESSION: No mammographic change indicative of malignancy. Routine screening isrecommended. BI-RADS CATEGORY: 2 - Benign finding. DENSITY: There are scattered fibroglandular densities. POS - CDHMAM2 Paulette Anaya MD IMG MG EXAMS Final Result * Pap Smear (07/09/2017 12:00 AM EST) 07/09/2017 07/10/2017 2:0 8 PM EST Narrative SEE NARRATIVE - 07/16/2017 4:04 [place] [address] Natural Sciences Manager: Negin Beckett MD TRAVELER CHANGER Cytology Report FINAL DIAGNOSIS A. PAP SMEAR (SUREPATH) C: SPECIMEN ADEQUACY: Satisfactory for evaluation; transformation zone present. INTERPRETATION: NEGATIVE FOR INTRAEPITHELIAL LESION OR MALIGNANCY. Reactive changes. Electronically Signed Out By: MD Rashawn Enciso By his/her signature above, the pathologist listed as making the Final Diagnosis certifies that he/she has personally reviewed this case and confirmed or corrected the diagnosis. The Pap test is a screening test primarily for squamous cancers and precursors and has associated false-negative and false-positive results. New technologies such as liquid-based preparations may decrease but will not eliminate all false-negative results. Regular sampling and follow-up of unexplained clinical signs and symptoms are recommended to minimize false negative results. PROCEDURES/ADDENDA HPV Testing (Requested) Ordered Date: 07/10/2017 HPV Test Negative for high risk human papillomavirus types 16, 18 and the Other high risk probe set (Includes 31, 33, 35, 39, 45, 51, 52, 56, 58, 59, 66, 68) by Sherly cobase 4800 HR-HPV analysis. Clinical correlation is advised. This HPV test was performed at [facility], [address] [place] [address]. The accuracy and precision of this test has been verified in the Cytopathology laboratory of the [facility]. This test has not been cleared or approved by the U.S. Food and Drug Administration (FDA). CLINICAL HISTORY Date of Last Menstrual Period: ~2000 Menstrual History: Post Menopausal Other Clinical Conditions: Screening Pap SPECIMEN SOURCE A: PAP SMEAR (SUREPATH) C Patient Name: DOTTY JAIME : 1970 (Age: 47) Sex: F Institution: [facility] Location: [facility] Date of Collection: 07/09/2017 Date of Reported: 07/16/2017 16:04 Results to: Paulette Anaya MD Paulette Anaya MD CYTOLOGY ORDERABLES Final Result SEE NARRATIVE from Last 3 Months or Most Recently Relevant to Health Maintenance [place] [id number] MEDICARE PART A & B MEDICARE PART A & B MEDICARE PART A & B MEDICARE PART A & B MEDICARE PART A & B MEDICARE PART A & B MEDICARE PART A & B MEDICARE PART A & B 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 It is not the complete legal health record.[facility]
== END 2025-04-03 08:45 | disposition home or self-care (01) ==
LOC: HO.HCS 08:10
PROVIDERS: PCP Internal Medicine; Visit Provider Internal Medicine
DX: I25.10 Atherosclerotic heart disease of native coronary artery without angina pectoris (principal); E11.8 Type 2 diabetes mellitus with unspecified complications; I95.1 Orthostatic hypotension; I35.0 Nonrheumatic aortic (valve) stenosis
CPT/HCPCS: 93010; 99214; G2211

== ENCOUNTER → 2025-04-03 08:10 | Outpatient (BNVA) | payer OTHER, SELFPAY | PROVIDERS: PCP Internal Medicine; Visit Provider Internal Medicine | DX: I35.0 Nonrheumatic aortic (valve) stenosis (principal); I95.1 Orthostatic hypotension; I25.10 Atherosclerotic heart disease of native coronary artery without angina pectoris; I10 Essential (primary) hypertension; I44.5 Left posterior fascicular block; E11.8 Type 2 diabetes mellitus with unspecified complications | CPT/HCPCS: 93005; 99212 ==